=== PATIENT | male | born 1940 | race American Indian/Alaskan Native ===

== ENCOUNTER 2020-06-06 09:40 | Inpatient (IN) | payer MEDICARE ==
--- NOTE | 2020-06-06 09:56 | Emergency Department Report ---
HPI - General Time Seen by Provider: 06/06/20 09:41 - HPI HPI: Room 21 The patient is a 80-year-old male present with a chief complaint of altered mental status. Per EMS the patient was at breakfast in his wheelchair when he slumped over and went unresponsive. Patient does not answer questions but moans to sternal rub ED Past Medical Hx - Past Medical History Hx Diabetes: Yes - Family History Family history: no significant - Social History Smoking Status: Unknown if ever smoked Substance Use Type: None ED Review of Systems ROS: Stated complaint: ALLEGED STROKE Other details as noted in HPI Comment: Unobtainable due to pts medical conditions Physical Exam - Physical Exam Physical Exam: GENERAL: The patient is well-developed well-nourished male lying on stretcher u nresponsive. [] HEENT: Normocephalic. Atraumatic. Patient has moist mucous membranes. NECK: Supple. Trachea midline CHEST/LUNGS: Clear to auscultation. There is no respiratory distress noted. HEART/CARDIOVASCULAR: Regular. There is no tachycardia. There is no gallop rub or murmur. ABDOMEN: Abdomen is soft, nontender. Patient has normal bowel sounds. There is no abdominal distention. SKIN: There is no rash. There is no edema. There is no diaphoresis. NEURO: The patient is obtunded and does not awaken to sternal rub. Patient moans occasionally MUSCULOSKELETAL: There is no evidence of acute injury. ED Course - Reevaluation(s) Reevaluation #1: 06/06/20 14:14 Attempted to call patient's daughter Ms. 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 She is the patient's power of research attorney - Consultations Consultation #1: 06/06/20 14:[address] Ricketts-will consult. Recommends Kayexalate 45 g per NG tube - Central Line Placement Right Femoral Consent Obtained: emergent situation Time Out Performed: Yes Patient Placed on Monitor/Pulse Ox: Yes Prep: mask, gown, gloves Central Line Prep: Chlorhexidine scrub Local Anesthesia Used: Lidocaine 1% Amount of Anesthesia Used (mls): 5 Ultrasound Used for Placement: No Central Line Lumen Inserted: triple Reason for Insertion: Volume Resuscitation Bloods Obtained for Lab: No Central Line Position: good blood return Dressing Applied: Tegaderm Patient Tolerated Procedure: no complications Complications: none ED Medical Decision Making - Lab Data Result diagrams: 06/06/20 10:19 06/06/20 10:19 Laboratory Tests 06/06/20 06/06/20 06/06/20 09:47 10:19 10:19 WBC 4.4 L RBC 2.59 L Hgb 8.4 L Hct 26.1 L MCV 101 H MCH 33 H MCHC 32 RDW 14.8 Plt Count 157 Lymph % (Auto) 53.7 H [place] % (Auto) 6.8 Eos % (Auto) 1.6 Baso % (Auto) 0.3 Lymph # (Auto) 2.4 [place] # (Auto) 0.3 Eos # (Auto) 0.1 Baso # (Auto) 0.0 Seg Neutrophils % 37.6 L Seg Neutrophils # 1.7 L PT 16.3 H INR 1.33 H APTT 31.6 ABG pH ABG pCO2 ABG pO2 ABG HCO3 ABG O2 Saturation ABG O2 Content ABG Base Excess ABG Hemoglobin ABG Carboxyhemoglobin ABG Methemoglobin VBG pH Oxyhemoglobin FiO2 Sodium Potassium Chloride Carbon Dioxide Anion Gap BUN Creatinine Estimated GFR BUN/Creatinine Ratio Glucose POC Glucose 122 H Lactic Acid Calcium Total Bilirubin AST ALT Alkaline Phosphatase Ammonia Total Creatine Kinase CK-MB (CK-2) CK-MB (CK-2) Rel Index Troponin T Total Protein Albumin Albumin/Globulin Ratio Triglycerides Cholesterol LDL Cholesterol Direct HDL Cholesterol Cholesterol/HDL Ratio TSH Free T4 Plasma/Serum Alcohol 06/06/20 06/06/20 06/06/20 10:19 10:19 10:19 WBC RBC Hgb Hct MCV MCH MCHC RDW Plt Count Lymph % (Auto) [place] % (Auto) Eos % (Auto) Baso % (Auto) Lymph # (Auto) [place] # (Auto) Eos # (Auto) Baso # (Auto) Seg Neutrophils % Seg Neutrophils # PT INR APTT ABG pH ABG pCO2 ABG pO2 ABG HCO3 ABG O2 Saturation ABG O2 Content ABG Base Excess ABG Hemoglobin ABG Carboxyhemoglobin ABG Methemoglobin VBG pH Oxyhemoglobin FiO2 Sodium 135 L Potassium 6.2 H* Chloride 99.7 Carbon Dioxide 19 L Anion Gap 23 BUN 95 H Creatinine 3.6 H Estimated GFR 20 BUN/Creatinine Ratio 26 Glucose 124 H POC Glucose Lactic Acid 4.80 H* Calcium 8.9 Total Bilirubin 0.50 AST 44 H ALT 19 Alkaline Phosphatase 58 Ammonia 64.0 H Total Creatine Kinase 629 H CK-MB (CK-2) 5.4 H CK-MB (CK-2) Rel Index 0.8 Troponin T 0.320 H* Total Protein 6.3 Albumin 2.7 L Albumin/Globulin Ratio 0.8 Triglycerides 103 Cholesterol 84 LDL Cholesterol Direct 28 L HDL Cholesterol 44 Cholesterol/HDL Ratio 1.90 TSH Free T4 Plasma/Serum Alcohol 06/06/20 06/06/20 06/06/20 10:19 10:19 10:19 WBC RBC Hgb Hct MCV MCH MCHC RDW Plt Count Lymph % (Auto) [place] % (Auto) Eos % (Auto) Baso % (Auto) Lymph # (Auto) [place] # (Auto) Eos # (Auto) Baso # (Auto) Seg Neutrophils % Seg Neutrophils # PT INR APTT ABG pH ABG pCO2 ABG pO2 ABG HCO3 ABG O2 Saturation ABG O2 Content ABG Base Excess ABG Hemoglobin ABG Carboxyhemoglobin ABG Methemoglobin VBG pH 7.438 H Oxyhemoglobin FiO2 Sodium Potassium Chloride Carbon Dioxide Anion Gap BUN Creatinine Estimated GFR BUN/Creatinine Ratio Glucose POC Glucose Lactic Acid Calcium Total Bilirubin AST ALT Alkaline Phosphatase Ammonia Total Creatine Kinase CK-MB (CK-2) CK-MB (CK-2) Rel Index Troponin T Total Protein Albumin Albumin/Globulin Ratio Triglycerides Cholesterol LDL Cholesterol Direct HDL Cholesterol Cholesterol/HDL Ratio TSH 4.440 H Free T4 1.55 H Plasma/Serum Alcohol < 0.01 06/06/20 11:18 WBC RBC Hgb Hct MCV MCH MCHC RDW Plt Count Lymph % (Auto) [place] % (Auto) Eos % (Auto) Baso % (Auto) Lymph # (Auto) [place] # (Auto) Eos # (Auto) Baso # (Auto) Seg Neutrophils % Seg Neutrophils # PT INR APTT ABG pH 7.329 L ABG pCO2 27.8 ABG pO2 258.1 H ABG HCO3 14.3 L ABG O2 Saturation 99.4 H ABG O2 Content 13.2 ABG Base Excess -10.5 L ABG Hemoglobin 9.1 L ABG Carboxyhemoglobin 1.3 ABG Methemoglobin Not Reportable VBG pH Oxyhemoglobin 98.2 FiO2 21 Sodium Potassium Chloride Carbon Dioxide Anion Gap BUN Creatinine Estimated GFR BUN/Creatinine Ratio Glucose POC Glucose Lactic Acid Calcium Total Bilirubin AST ALT Alkaline Phosphatase Ammonia Total Creatine Kinase CK-MB (CK-2) CK-MB (CK-2) Rel Index Troponin T Total Protein Albumin Albumin/Globulin Ratio Triglycerides Cholesterol LDL Cholesterol Direct HDL Cholesterol Cholesterol/HDL Ratio TSH Free T4 Plasma/Serum Alcohol - EKG Data -: EKG Interpreted by Me EKG shows normal: sinus rhythm Rate: normal - EKG Data When compared to previous EKG there are: previous EKG unavailable Interpretation: nonspecific ST-T wave niki (T wave inversions in leads II, 3, aVF), other (Left bundle branch block) - Radiology Data Radiology results: report reviewed (CT head, CTA brain, CTA neck), image rev iewed (CT head, CTA brain, CTA neck) interpreted by me: Chest x-ray-no definite focal infiltrates, no pneumothorax. No foreign body seen [facility] [address] [place] [address] Cat Scan Report Signed Patient: TROY THAKKAR MR#: [id number] : 1940 Acct:[id number] Age/Sex: 80 / M ADM Date: 06/06/20 Loc: ED Attending Dr: Ordering Physician: JAIME SINGLETON MD Date of Service: 06/06/20 Procedure(s): CT head/brain wo con Accession Number(s): [id number] cc: JAIME SINGLETON MD CT head/brain wo con INDICATION / CLINICAL INFORMATION: 80 years Male; Altered mental status, unresponsive. TECHNIQUE: Routine CT head without contrast. All CT scans at this location are performed using CT dose reduction for ALARA by means of automated exposure control. COMPARISON: None. FINDINGS: BRAIN / INTRACRANIAL CONTENTS: There is moderate cerebral white matter disease most consistent with microvascular angiopathy. The findings are also compatible with lacunar infarcts involving right basal ganglia which appear chronic though correlation would be needed regarding underlying acute ischemia given the above findings and "code st roke" specification. There are foci of calcification within the basal ganglia. There is no clear CT evidence of acute intracranial hemorrhage or significant mass effect. There is mild cerebral atrophy. The ventricular system is correspondingly appropriate in size and configuration. ORBITS: No significant abnormality of visualized orbits. SINUSES / MASTOIDS: No significant abnormality in the visualized paranasal sinuses or mastoid air cells. CRANIOCERVICAL JUNCTION: No significant abnormality. ADDITIONAL FINDINGS: None. IMPRESSION: 1. There is moderate microvascular angiopathy as detailed above without CT ends of acute intracranial hemorrhage. The study was specified as code stroke and called to Dr. Singleton in the ER at 9:01 AM Central standard time. Signer Name: Arturo Jensen MD Signed: 06/06/2020 10:05 AM Workstation Name: [id number] Transcribed By: MR Dictated By: Arturo Jensen MD Electronically Authenticated By: Arturo Jensen MD Signed Date/Time: 06/06/20 100 DD/ TD/TT: Print Cancel [facility] [address] [place] [address] Cat Scan Report Signed Patient: TROY THAKKAR MR#: [id number] : 1940 Acct:[id number] Age/Sex: 80 / M ADM Date: 06/06/20 Loc: ED Attending Dr: Ordering Physician: JAIME SINGLETON MD Date of Service: 06/06/20 Procedure(s): CT angio head Accession Number(s): [id number] cc: JAIME SINGLETON MD CTA HEAD WITH CONTRAST HISTORY: Unresponsive COMPARISON: None. TECHNIQUE: Routine non-contrast CT Head, CTA of the head and post-contrast CT Head are performed. 3-D/MIP reformats postprocessed. All CT scans at this location are performed using CT dose reduction for ALARA by means of automated exposure control CONTRAST: 100 ml of Omnipaque 350 FINDINGS: CTA Head: Intracranial vertebral arteries: No significant abnormality. Basilar artery: No significant abnormality. Posterior cerebral arteries: No significant abnormality. Both posterior communicating arteries are contributing to posterior cerebral arteries Intracranial internal carotid arteries: Vascular calcification in both internal carotid arteries; internal carotid arteries patent from skull base to terminus Anterior cerebral arteries: No significant abnormality. Middle cerebral arteries: No significant abnormality. Dural venous sinuses:Not optimally opacified. No significant abnormality. Additional findings: None. IMPRESSION: 1. No significant abnormality. Signer Name: Dany Reich MD Signed: 06/06/2020 10:35 AM Workstation Name: [email or web address] Transcribed By: BS Dictated By: Dany Neil MD Electronically Authenticated By: Dany Neil MD Signed Date/Time: 06/06/20 1035 DD/ 1030 TD/TT: Print Cancel [facility] [address] [place] [address] Cat Scan Report Signed Patient: TROY THAKKAR MR#: [id number] : 1940 Acct:[id number] Age/Sex: 80 / M ADM Date: 06/06/20 Loc: ED Attending Dr: Ordering Physician: JAIME SINGLETON MD Date of Service: 06/06/20 Procedure(s): CT angio neck Accession Number(s): [id number] cc: JAIME SINGLETON MD CTA NECK WITH CONTRAST HISTORY: Altered mental status COMPARISON: None. TECHNIQUE: Routine CTA of the neck was performed. 3-D/MIP reformats were postprocessed. 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 In addition, along the posterior wall of proximal right internal carotid artery, extraluminal opacification suspicious for ulceration. Left carotid bifurcation: Densely calcified (5 mm thick) eccentric atheromatous plaque in the proximal left internal carotid artery narrowing the lumen by more than 60%. Cervical internal carotid arteries: No significant abnormality. Additional findings: None. IMPRESSION: Right carotid bifurcation: Calcified atherosclerotic plaque with less than 30% stenoses in the proximal right internal carotid artery; however, more proximally, suggestion of foraminal segment Left carotid bifurcation: Densely calcified atheromatous plaque in the proximal left internal carotid artery with more than 60% stenoses Signer Name: Dany Reich MD Signed: 06/06/2020 10:49 AM Workstation Name: [id number] Transcribed By: MARIN Dictated By: Dany Neil MD Electronically Authenticated By: Dany Neil MD Signed Date/Time: 06/06/20 1049 DD/ 1035 TD/TT: Print Cancel [facility] [address] [place] [address] XRay Report Signed Patient: TROY THAKKAR MR#: [id number] : 1940 Acct:[id number] Age/Sex: 80 / M ADM Date: 06/06/20 Loc: ED Attending Dr: Ordering Physician: JAIME SINGLETON MD Date of Service: 06/06/20 Procedure(s): XR chest 1V ap Accession Number(s): [id number] cc: JAIME SINGLETON MD Fluoro Time In Minutes: CHEST 1 VIEW INDICATION: Altered mental status COMPARISON: None FINDINGS: SUPPORT DEVICES: None. HEART / MEDIASTINUM: No significant abnormality. LUNGS / PLEURA: Bronchovascular markings are prominent both bases. No pneumothorax. ADDITIONAL FINDINGS: Chronic degenerative changes with possible chronic anterior dislocations both shoulders IMPRESSION: 1. No acute cardiopulmonary disease Signer Name: Yony Obregon MD Signed: 06/06/2020 12:10 PM Workstation Name: [id number] Transcribed By: LESLIE Dictated By: Yony Obregon MD Electronically Authenticated By: Yony Obregon MD Signed Date/Time: 06/06/20 1210 DD/ 1209 TD/TT: Print Cancel - Differential Diagnosis CVA, ICH, sepsis, hypoxia, pneumonia Critical care attestation.: If time is entered above; I have spent that time in minutes in the direct care of this critically ill patient, excluding procedure time. ED Disposition Clinical Impression: Altered mental status, Renal failure, Hyperkalemia, Metabolic acidosis Disposition: OP ADMIT IP TO THIS HOSP Is pt being admited?: Yes Does the pt Need Aspirin: No Condition: Stable Referrals: PRIMARY CARE, [Primary Care Provider] - 3-5 Days Time of Disposition: 14:28 (Hospitalist notified (Dr. Meyer))
--- NOTE | 2020-06-06 10:09 | Cat Scan Report ---
CT head/brain wo con INDICATION / CLINICAL INFORMATION: 80 years Male; Altered mental status, unresponsive. TECHNIQUE: Routine CT head without contrast. All CT scans at this location are performed using CT dos e reduction for ALARA by means of automated exposure control. COMPARISON: None. FINDINGS: BRAIN / INTRACRANIAL CONTENTS: There is moderate cerebral white matter disease most consistent with m icrovascular angiopathy. The findings are also compatible with lacunar infarcts involving right basal ganglia which appear chronic though correlation would be needed regarding underlying acute ischemia given the above findings and "code stroke" specification. There are foci of calcification within the basal ganglia. There is no clear CT evidence of acute intr acranial hemorrhage or significant mass effect. There is mild cerebral atrophy. The ventricular syste m is correspondingly appropriate in size and configuration. ORBITS: No significant abnormality of visualized orbits. SINUSES / MASTOIDS: No significant abnormality in the visualized paranasal sinuses or mastoid air marcy ls. CRANIOCERVICAL JUNCTION: No significant abnormality. ADDITIONAL FINDINGS: None. IMPRESSION: 1. There is moderate microvascular angiopathy as detailed above without CT ends of acute intracranial hemorrhage. The study was specified as code stroke and called to Dr. Blackman in the ER at 9:01 AM Central standard t wilian. Signer Name: Arturo Jensen MD Signed: 06/06/2020 10:05 AM Workstation Name: [id number]
--- NOTE | 2020-06-06 10:39 | Cat Scan Report ---
CTA HEAD WITH CONTRAST HISTORY: Unresponsive COMPARISON: None. TECHNIQUE: Routine non-contrast CT Head, CTA of the head and post-contrast CT Head are performed. 3-D /MIP reformats postprocessed. All CT scans at this location are performed using CT dose reduction for ALARA by means of automated exposure control CONTRAST: 100 ml of Omnipaque 350 FINDINGS: CTA Head: Intracranial vertebral arteries: No significant abnormality. Basilar artery: No significant abnormality. Posterior cerebral arteries: No significant abnormality. Both posterior communicating arteries are co ntributing to posterior cerebral arteries Intracranial internal carotid arteries: Vascular calcification in both internal carotid arteries; int ernal carotid arteries patent from skull base to terminus Anterior cerebral arteries: No significant abnormality. Middle cerebral arteries: No significant abnormality. Dural venous sinuses:Not optimally opacified. No significant abnormality. Additional findings: None. IMPRESSION: 1. No significant abnormality. Signer Name: Dany Reich MD Signed: 06/06/2020 10:35 AM Workstation Name: [id number]
--- NOTE | 2020-06-06 10:54 | Cat Scan Report ---
CTA NECK WITH CONTRAST HISTORY: Altered mental status COMPARISON: None. TECHNIQUE: Routine CTA of the neck was performed. 3-D/MIP reformats were postprocessed. 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 In a ddition, along the posterior wall of proximal right internal carotid artery, extraluminal opacificati on suspicious for ulceration. Left carotid bifurcation: Densely calcified (5 mm thick) eccentric atheromatous plaque in the proxima l left internal carotid artery narrowing the lumen by more than 60%. Cervical internal carotid arteries: No significant abnormality. Additional findings: None. IMPRESSION: Right carotid bifurcation: Calcified atherosclerotic plaque with less than 30% stenoses in the proxim al right internal carotid artery; however, more proximally, suggestion of foraminal segment Left carotid bifurcation: Densely calcified atheromatous plaque in the proximal left internal carotid artery with more than 60% stenoses Signer Name: Dany Reich MD Signed: 06/06/2020 10:49 AM Workstation Name: [id number]
[2020-06-06 10:59] LABS: Basophils % (Auto) 0.3 % (0.0-1.8); Eosinophils # (Auto) 0.1 K/mm3 (0.0-0.4); Eosinophils % (Auto) 1.6 % (0.0-4.3); Hematocrit 26.1 % (35.5-45.6); Hemoglobin 8.4 gm/dl (11.8-15.2); Lymphocytes # (Auto) 2.4 K/mm3 (1.2-5.4); Lymphocytes % (Auto) 53.7 % (13.4-35.0); Mean Corpuscular HGB Conc 32 % (32-34); Mean Corpuscular Volume 101 fl (84-94); Monocytes # (Auto) 0.3 K/mm3 (0.0-0.8); Monocytes % (Auto) 6.8 % (0.0-7.3); Red Blood Count 2.59 M/mm3 (3.65-5.03); Red Cell Distribution Width 14.8 % (13.2-15.2)
[2020-06-06 11:00] LABS: Platelet Count 157 K/mm3 (140-440)
[2020-06-06 11:08] LABS: INR 1.33 (0.87-1.13)
[2020-06-06 11:09] LABS: Partial Thromboplastin Time 31.6 Sec. (24.2-36.6)
[2020-06-06 11:36] LABS: Albumin 2.7 g/dL (3.9-5); Calcium 8.9 mg/dL (8.4-10.2); Creatine Kinase MB 5.4 ng/mL (0.0-4.0)
[2020-06-06 11:45] LABS: Free T4 (Free Thyroxine) 1.55 ng/dL (0.76-1.46)
[2020-06-06] MEDS ORDERED: SODIUM CHLORIDE 0.9% 1000 ML 1,000 ML ONE (11:45)
[2020-06-06] MEDS ORDERED: DOPamine/D5W 800 MG/250 ML 800 MG/250 ML BAG IV ONE (11:56)
[2020-06-06] MEDS ORDERED: SODIUM CHLORIDE 0.9% 1000 ML 1,000 ML IV ONE (11:59)
[2020-06-06] MEDS: DOPamine/D5W 800 MG/250 ML 800 MG/250 ML BAG IV ONE ×3 (12:06→20:37)
--- NOTE | 2020-06-06 12:14 | XRay Report ---
CHEST 1 VIEW INDICATION: Altered mental status COMPARISON: None FINDINGS: SUPPORT DEVICES: None. HEART / MEDIASTINUM: No significant abnormality. LUNGS / PLEURA: Bronchovascular markings are prominent both bases. No pneumothorax. ADDITIONAL FINDINGS: Chronic degenerative changes with possible chronic anterior dislocations both oulders IMPRESSION: 1. No acute cardiopulmonary disease Signer Name: Yony Obregon MD Signed: 06/06/2020 12:10 PM Workstation Name: [id number]
[2020-06-06 12:22] LABS: ABG Base Excess -10.5 mmol/L (-2.0-3.0); ABG HCO3 14.3 mmol/L (20.0-26.0); ABG Oxygen Saturation 99.4 % (95.0-99.0); ABG PCO2 27.8 mm Hg; ABG PH 7.329 pH Units (7.350-7.450); ABG PO2 258.1 mm Hg (80.0-90.0)
--- NOTE | 2020-06-06 12:42 | Emergency Department Report ---
Blank Doc - Documentation Documentation: [facility] Consult Note # Demographics Consult Type: Acute Stroke Level 1 (0-4.5 hrs) Patient Location: Emergency Room First Name: Jt Last Name: Korey Date of : 1940 Age: 80 Gender: Male Time of Initial Page ( Time): 06/06/2020, 09:46 Time of Return Call ( Time): 06/06/2020, 09:46 # HPI History: 80yo M presents after slumping at the breakfast table, not speaking. no weakness or facial droop. agonal breathing. a fib on the monitor pt getting CT at the time of the page. seen after. # Scores Time of exam and NIHSS (): 06/06/2020, 10:06 Level of Consciousness 1a: [1] = Not alert; but arousable by minor stim LOC Questions 1b: [2] = Answers neither correctly LOC Commands 1c: [2] = Performs neither correctly Best Gaze 2: [0] = Normal Visual 3: [0] = No visual loss Facial Palsy 4: [0] = Normal symmetrical movements Motor Arm Left 5a: [3] = No effort against gravity Motor Arm Right 5b: [3] = No effort against gravity Motor Leg Left 6a: [3] = No effort against gravity Motor Leg Right 6b: [3] = No effort against gravity Limb Ataxia 7: [0] = Absent Sensory 8: [0] = Normal Best Language 9: [3] = Mute Dysarthria 10: [2] = Severe dysarthria Extinction and Inattention 11: [0] = No abnormality NIHSS Total: 22 # Exam Respiratory: on non-reabreather mask # PMH-FH-SH Past Medical History: Diabetes Social History: [facility] facility # Data Time Head CT personally read by me (): 06/06/2020, 09:[address]: no bleed, preliminarily reviewed by me, please refer to radiology read for official reading # Assessment Impression: Altered Mental Status # Plan Thrombolytic/Intervention: NOT IV Thrombolytic or IA Intervention Thrombolytic/Intraarterial Exclusion: IV thrombolytic and IA intervention considered but not recommended as this patient's symptoms are not clinically consistent with an assumed diagnosis of stroke Imaging: (urgency: STAT in ED): CT Angiogram Head and CT Angiogram Neck AND call back with results if abnormal Other: I have discussed my recommendations with the referring provider Additional Recommendations: Metabolic and infectious evaluation. If no cause found then MRI brain for further eval is reasonable # Logistics Telemedicine: Interactive 2 way audio and visual telecommunication technology was utilized during this visit
[2020-06-06 13:52] LABS: Chol/HDL Ratio 1.9 %
[2020-06-06] MEDS ORDERED: PIPERACIL-TAZO 2.25 GM/50 ML 2.25 GM/50 ML BAG IV ONE (13:59)
[2020-06-06] MEDS ORDERED: INSULIN REGULAR, HUMAN 100 UNITS/1 ML IV ONE (14:10)
[2020-06-06] MEDS ORDERED: DEXTROSE 50% IN WATER (25GM) 50 ML SYRINGE IV ONE (14:10)
[2020-06-06] MEDS ORDERED: SODIUM BICARB 8.4% 50 MEQ/50 ML SYRINGE IV ONE (14:10)
[2020-06-06] MEDS ORDERED: CALCIUM GLUCONATE 1,000 MG in SODIUM CHLORIDE 0.9% 100 ML IV ONE (14:10)
[2020-06-06] MEDS: NORepinephrine/NS 4 MG-250 ML 4 MG/250 ML BAG IV SCH ×2 (14:27→17:42)
--- NOTE | 2020-06-06 14:29 | History and Physical Report ---
History of Present Illness Chief complaint: Unresponsive History of present illness: 80 YO Male Assisted Living Facility Resident with Vascular Dementia, Cerebral Atherosclerosis, Debility, DM presents to ED for evaluation. Patient is lethargic with diminished cognition at the time of my evaluation is unable to provide history. Patient history provided by patient daughter who is available by telephone. Patient daughter reports that patient was in his usual state of health and was found by assisted living facility staff this morning to have developed an episode of unresponsiveness while at breakfast. EMS was notified and upon arrival the patient was found to be in distress and subsequently transported to [facility] for further care and evaluation of the aforementioned symptoms. The patient was seen and evaluated in the emergency department. All lab and imaging studies reviewed. The patient was found to have a urinary tract infection complicated by sepsis and septic shock, acute kidney injury, toxic metabolic encephalopathy, as well as metabolic acidosis. The patient was found to be hypotensive with a systolic blood pressure in the 50s. The patient was initiated on IV pressor support. The patient was admitted to ICU due to increased risk of developing multiple organ system dysfunction. Patient found to have poor prognosis. No further history is obtainable. Patient has diminished cognition but has a positive gag reflex and is able to protect his airway at the time of my evaluation. Advanced care planning conducted in ED. Patient daughter made aware of the prognosis. No prior admission for review. No medication listed at time of admission for reconciliation. Nephrology team consulted in ED. Critical care team consulted. Past History Past Medical History: diabetes, other (See HPI) Past Surgical History: No surgical history, Other (Reviewed) Social history: Family history: diabetes, hypertension Medications and Allergies Allergies Allergy/AdvReac Type Severity Reaction Status Date / Time No Known Allergies Allergy Verified 06/06/20 15:21 Home Medications Medication Instructions Recorded Confirmed Last Taken Type Amlodipine Besylate [Norvasc] 5 mg PO QDAY 06/06/20 06/06/20 Unknown History Bisacodyl [Women's Gentle Laxative] 5 mg PO BID 06/06/20 06/06/20 Unknown History Calcium Carb/Magnesium Hydrox 500 mg PO QDAY 06/06/20 06/06/20 Unknown History [Antacid 1000-200 mg Tab Chew] Cholecalciferol (Vitamin D3) 2,000 unit PO QDAY 06/06/20 06/06/20 Unknown History [Vitamin D3 2,000 UNIT CAP] Dextrose/Dextrin/Maltose 24 gm PO ONCE 06/06/20 06/06/20 Unknown History [Insta-Glucose Gel] Diclofenac 1% [Diclofenac 1% 100 gm TP QDAY 06/06/20 06/06/20 Unknown History topical gel] Dicyclomine [Bentyl] 10 mg PO TID 06/06/20 06/06/20 Unknown History Docusate Sodium [Colace] 100 mg PO BID PRN 06/06/20 06/06/20 Unknown History Furosemide [Lasix] 40 mg PO QDAY 06/06/20 06/06/20 Unknown History Insulin Lispro [Insulin Lispro 10 unit SQ TID 06/06/20 06/06/20 Unknown History Kwikpen U-100] Magnesium Citrate [Citroma] 296 ml PO QDAY 06/06/20 06/06/20 Unknown History Melatonin [Melatonin 3MG TAB] 6 mg PO QHS 06/06/20 06/06/20 Unknown History Oxycodone HCl/Acetaminophen 1 each PO QDAY 06/06/20 06/06/20 Unknown History [Oxycodone-Acetaminophen 10-325] Pantoprazole [Protonix] 40 mg PO QDAY 06/06/20 06/06/20 Unknown History Pioglitazone HCl [Actos] 30 mg PO QDAY 06/06/20 06/06/20 Unknown History Polyethylene Glycol 3350 [Gavilax] 10 gm PO QDAY 06/06/20 06/06/20 Unknown History Pravastatin Sodium [Pravastatin] 10 mg PO QHS 06/06/20 06/06/20 Unknown History Tamsulosin [Flomax] 0.4 mg PO QDAY 06/06/20 06/06/20 Unknown History allopurinoL [Zyloprim] 100 mg PO QDAY 06/06/20 06/06/20 Unknown History lisinopriL [Lisinopril] 20 mg PO QDAY 06/06/20 06/06/20 Unknown History Active Meds: Active Medications Dopamine HCl/Dextrose (Intropin Drip 800 Mg/D5w 250 Ml) 800 mg in 250 mls @ 2.885 mls/hr IV TITR ONE; Protocol Stop: 06/10/20 02:39 Last Admin: 06/06/20 13:28 Dose: 20 mcg/kg/min, 28.848 mls/hr Documented by: Norepinephrine (Levophed Drip 4 Mg/Ns 250 Ml) 4 mg in 250 mls @ 7.5 mls/hr IV TITR YELENA; Protocol Review of Systems ROS unobtainable: due to mental status Exam - Constitutional Vitals: Temp Pulse Resp BP Pulse Ox 96.6 F L 113 H 26 H 50/24 100 06/06/20 12:09 06/06/20 14:00 06/06/20 14:00 06/06/20 14:00 06/06/20 14:00 General appearance: Present: severe distress - EENT Eyes: Present: PERRL ENT: hearing decreased, other (Dry oral mucosa) - Neck Neck: Present: supple, normal ROM - Respiratory Respiratory effort: normal Respiratory: bilateral: diminished - Cardiovascular Rhythm: other (Hypotensive, tachycardic) - Extremities Extremities: pulses symmetrical, No edema Peripheral Pulses: abnormal (Capillary refill greater than 3.5 seconds) - Abdominal General gastrointestinal: Present: soft, non-tender, non-distended, normal bowel sounds Male genitourinary: Present: normal - Integumentary Integumentary: Present: dry, clammy, decreased turgor - Musculoskeletal Musculoskeletal: generalized weakness - Psychiatric Psychiatric: no appropriate mood/affect, no intact judgment & insight, no memory intact - Neurologic Neurologic: CNII-XII intact, no focal deficits, moves all extremities, no gait normal HEART Score - HEART Score Troponin: Troponin T 0.320 ng/mL (0.00-0.029) H* 06/06/20 10:19 Results - Labs CBC & Chem 7: 06/06/20 10:19 06/06/20 10:19 Labs: Abnormal lab results 06/06/20 06/06/20 06/06/20 Range/Units 09:47 10:19 10:19 WBC 4.4 L (4.5-11.0) K/mm3 RBC 2.59 L (3.65-5.03) M/mm3 Hgb 8.4 L (11.8-15.2) gm/dl Hct 26.1 L (35.5-45.6) % MCV 101 H (84-94) fl MCH 33 H (28-32) pg Lymph % (Auto) 53.7 H (13.4-35.0) % Seg Neutrophils % 37.6 L (40.0-70.0) % Seg Neutrophils # 1.7 L (1.8-7.7) K/mm3 PT 16.3 H (12.2-14.9) Sec. INR 1.33 H (0.87-1.13) ABG pH (7.350-7.450) pH Units ABG pO2 (80.0-90.0) mm Hg ABG HCO3 (20.0-26.0) mmol/L ABG O2 Saturation (95.0-99.0) % ABG Base Excess (-2.0-3.0) mmol/L ABG Hemoglobin (14.0-18.0) gm/dl VBG pH (7.320-7.420) Sodium (137-145) mmol/L Potassium (3.6-5.0) mmol/L Carbon Dioxide (22-30) mmol/L BUN (9-20) mg/dL Creatinine (0.8-1.3) mg/dL Glucose (75-100) mg/dL POC Glucose 122 H (70-105) mg/dL Lactic Acid (0.7-2.0) mmol/L AST (5-40) units/L Ammonia (25-60) umol/L Total Creatine Kinase (55-170) units/L CK-MB (CK-2) (0.0-4.0) ng/mL Troponin T (0.00-0.029) ng/mL Albumin (3.9-5) g/dL LDL Cholesterol Direct (50-130) mg/dL TSH (0.270-4.200) mlU/mL Free T4 (0.76-1.46) ng/dL 06/06/20 06/06/20 06/06/20 Range/Units 10:19 10:19 10:19 WBC (4.5-11.0) K/mm3 RBC (3.65-5.03) M/mm3 Hgb (11.8-15.2) gm/dl Hct (35.5-45.6) % MCV (84-94) fl MCH (28-32) pg Lymph % (Auto) (13.4-35.0) % Seg Neutrophils % (40.0-70.0) % Seg Neutrophils # (1.8-7.7) K/mm3 PT (12.2-14.9) Sec. INR (0.87-1.13) ABG pH (7.350-7.450) pH Units ABG pO2 (80.0-90.0) mm Hg ABG HCO3 (20.0-26.0) mmol/L ABG O2 Saturation (95.0-99.0) % ABG Base Excess (-2.0-3.0) mmol/L ABG Hemoglobin (14.0-18.0) gm/dl VBG pH (7.320-7.420) Sodium 135 L (137-145) mmol/L Potassium 6.2 H* (3.6-5.0) mmol/L Carbon Dioxide 19 L (22-30) mmol/L BUN 95 H (9-20) mg/dL Creatinine 3.6 H (0.8-1.3) mg/dL Glucose 124 H (75-100) mg/dL POC Glucose (70-105) mg/dL Lactic Acid 4.80 H* (0.7-2.0) mmol/L AST 44 H (5-40) units/L Ammonia 64.0 H (25-60) umol/L Total Creatine Kinase 629 H (55-170) units/L CK-MB (CK-2) 5.4 H (0.0-4.0) ng/mL Troponin T 0.320 H* (0.00-0.029) ng/mL Albumin 2.7 L (3.9-5) g/dL LDL Cholesterol Direct 28 L (50-130) mg/dL TSH (0.270-4.200) mlU/mL Free T4 (0.76-1.46) ng/dL 06/06/20 06/06/20 06/06/20 Range/Units 10:19 10:19 11:18 WBC (4.5-11.0) K/mm3 RBC (3.65-5.03) M/mm3 Hgb (11.8-15.2) gm/dl Hct (35.5-45.6) % MCV (84-94) fl MCH (28-32) pg Lymph % (Auto) (13.4-35.0) % Seg Neutrophils % (40.0-70.0) % Seg Neutrophils # (1.8-7.7) K/mm3 PT (12.2-14.9) Sec. INR (0.87-1.13) ABG pH 7.329 L (7.350-7.450) pH Units ABG pO2 258.1 H (80.0-90.0) mm Hg ABG HCO3 14.3 L (20.0-26.0) mmol/L ABG O2 Saturation 99.4 H (95.0-99.0) % ABG Base Excess -10.5 L (-2.0-3.0) mmol/L ABG Hemoglobin 9.1 L (14.0-18.0) gm/dl VBG pH 7.438 H (7.320-7.420) Sodium (137-145) mmol/L Potassium (3.6-5.0) mmol/L Carbon Dioxide (22-30) mmol/L BUN (9-20) mg/dL Creatinine (0.8-1.3) mg/dL Glucose (75-100) mg/dL POC Glucose (70-105) mg/dL Lactic Acid (0.7-2.0) mmol/L AST (5-40) units/L Ammonia (25-60) umol/L Total Creatine Kinase (55-170) units/L CK-MB (CK-2) (0.0-4.0) ng/mL Troponin T (0.00-0.029) ng/mL Albumin (3.9-5) g/dL LDL Cholesterol Direct (50-130) mg/dL TSH 4.440 H (0.270-4.200) mlU/mL Free T4 1.55 H (0.76-1.46) ng/dL Assessment and Plan - Patient Problems (1) Septic shock Current Visit: Yes Status: Acute Plan to address problem: Sepsis protocol: Chest x-ray, CBC, BMP, urinalysis, IV fluid resuscitation therapy, IV antibiotic therapy, monitor urine output every shift, monitor fluid balance, maintain mean arterial pressure greater than or equal to 65, IV pressor support, serial lactic acid level, blood cultures. The high probability of a clinically significant, sudden or life threatening deterioration of the [cardiac, pulmonary, renal, infectious disease] system(s) required my full and direct attention, intervention and personal management. The aggregate critical care time was [95] minutes. This time is in addition to time spent performing reported procedures but includes the following: [x] Data Review and interpretation [x] Patient assessment and monitoring of vital signs [x] Documentation [x] Medication orders and management (2) Acute kidney injury (ISAAC) with acute tubular necrosis (ATN) Current Visit: Yes Status: Acute Plan to address problem: IV fluid resuscitation therapy, monitor urine output every shift, urine electrolytes, nephrology team consulted, BMP, repeat BMP in a.m. to monitor serum creatinine as well as glomerular filtration rate. (3) Urinary tract infection Current Visit: Yes Status: Acute Qualifiers: Encounter type: initial encounter Plan to address problem: CBC, CMP, urinalysis, IV antibiotic therapy, blood cultures. (4) Metabolic acidosis Current Visit: Yes Status: Acute Plan to address problem: IV fluid resuscitation therapy, IV bicarbonate therapy, BMP, repeat BMP in a.m., serial lactic acid level. (5) Toxic metabolic encephalopathy Current Visit: Yes Status: Acute Plan to address problem: CT head, neuro check, seizure precaution, aspiration precautions, treat sepsis, IV fluid resuscitation therapy. (6) DVT prophylaxis Current Visit: Yes Status: Acute Plan to address problem: SCD to bilateral lower extremities while in bed, prophylactic anticoagulation (7) Advance care planning Current Visit: Yes Status: Acute Plan to address problem: Disease education conducted, care plan discussed, prognosis discussed, diagnosis discussed, patient daughter acknowledges understanding and agree with care plan. Patient daughter acknowledges understanding patient poor prognosis and states that she is comfortable not returning to the hospital in view of the fact that this may be the last time that she sees her father alive. Patient is full code. Patient daughter acknowledges understanding agreement with care plan. +30 minutes.
[2020-06-06 14:30] LABS: Bilirubin,Urine NEG (Negative); Blood,Urine SM (Negative); Color,Urine Yellow (Yellow); Urobilinogen,Urine < 2.0 mg/dL (<2.0); WBC,Urine > 182.0 /HPF (0.0-6.0)
[2020-06-06] MEDS ORDERED: SODIUM POLYSTYRENE 15 GM/60 ML ORAL LIQD PO ONE (14:34)
[2020-06-06] MEDS ORDERED: CEFEPIME/NS 2 GM/100 ML 2 GM/100 ML BAG IV SCH (14:35)
[2020-06-06] MEDS ORDERED: SODIUM CHLORIDE 0.9% 1000 ML IV SOLN IV ONE (14:35)
[2020-06-06] MEDS ORDERED: ALBUTEROL 2.5 MG/3 ML NEBU IH PRN (15:00)
[2020-06-06] MEDS ORDERED: HYDROmorphone 1 MG/1 ML INJ IV PRN (15:00)
[2020-06-06 15:01] LABS: Amphetamine Screen,Urine PRESUMPTIVE NEGATIVE; Benzodiazepines Screen,Urine PRESUMPTIVE NEGATIVE; Cannabinoid Screen,Urine PRESUMPTIVE NEGATIVE; Cocaine Screen,Urine PRESUMPTIVE NEGATIVE; Methadone Screen,Urine PRESUMPTIVE NEGATIVE; Opiate Screen,Urine PRESUMPTIVE NEGATIVE
[2020-06-06] MEDS ORDERED: SODIUM CHLORIDE 0.9% IV ONE (15:30)
[2020-06-06] MEDS: CEFEPIME/NS 1 GM/100 ML 1 GM/100 ML BAG IV SCH (15:48)
[2020-06-06] MEDS ORDERED: DOCUSATE SODIUM 100 MG CAP PO PRN (15:57)
[2020-06-06 16:17] LABS: Creatinine,Urine < 4.2 mg/dL (0.1-20.0)
[2020-06-06] MEDS ORDERED: MAGNESIUM CITRATE 300 ML ORAL LIQD PO PRN (16:20)
[2020-06-06] MEDS: SODIUM CHLORIDE 0.9% 1000 ML 1,000 ML IV SCH (16:30)
[2020-06-06] MEDS: NORepinephrine/NS 8 MG-250 ML 8 MG/250 ML INFUS..BTL IV SCH (20:16)
[2020-06-06 21:45] LABS: Calcium 8.1 mg/dL (8.4-10.2)
[2020-06-06] MEDS ORDERED: NON-FORMULARY EACH (Pravastatin Sodium [Pravastatin] 10 MG Tablet) PO SCH (22:00)
[2020-06-07] MEDS: DICYCLOMINE 10 MG CAP PO SCH ×4 (01:15→22:08)
[2020-06-07] MEDS: PRAVASTATIN 20 MG TAB PO SCH ×2 (01:15→22:08)
[2020-06-07 03:01] LABS: Hematocrit 34.5 % (35.5-45.6); Hemoglobin 10.8 gm/dl (11.8-15.2); Mean Corpuscular HGB Conc 31 % (32-34); Mean Corpuscular Volume 102 fl (84-94); Platelet Count 190 K/mm3 (140-440); Red Blood Count 3.38 M/mm3 (3.65-5.03)
[2020-06-07 03:23] LABS: Albumin 3.2 g/dL (3.9-5); Calcium 7.9 mg/dL (8.4-10.2)
[2020-06-07] MEDS: VASOPRESSIN 20 UNIT in SODIUM CHLORIDE 0.9% 100 ML IV SCH ×2 (03:31→14:31)
[2020-06-07 03:48] LABS: Band Neutrophils # (Manual) 0.7 K/mm3; Total Cells Counted 100
[2020-06-07 03:49] LABS: Platelet Estimate Consistent w Auto; RBC Morphology Normal
[2020-06-07] MEDS: SODIUM CHLORIDE 0.9% 1000 ML 1,000 ML IV SCH (04:18)
[2020-06-07] MEDS: CEFEPIME/NS 1 GM/100 ML 1 GM/100 ML BAG IV SCH (04:30)
[2020-06-07] MEDS: DICLOFENAC SODIUM 1% TOPICAL GEL 100 GM TP SCH (08:29)
[2020-06-07] MEDS ORDERED: CALCIUM CARBONATE PO SCH (10:00)
[2020-06-07] MEDS ORDERED: MAGNESIUM CITRATE 300 ML ORAL LIQD PO SCH (10:00)
[2020-06-07] MEDS ORDERED: NON-FORMULARY EACH (Cholecalciferol (Vitamin D3) [Vitamin D3 2,000 Unit Cap] 2,000 UNIT Ca PO SCH (10:00)
[2020-06-07] MEDS ORDERED: [UNRECOGNIZED DRUG - OTHER] PO SCH (10:00)
[2020-06-07] MEDS ORDERED: MAGNESIUM HYDROXIDE PO SCH (10:00)
[2020-06-07] MEDS ORDERED: [UNRECOGNIZED DRUG - OTHER] PO SCH (10:00)
[2020-06-07] MEDS: NORepinephrine/NS 8 MG-250 ML 8 MG/250 ML INFUS..BTL IV SCH ×2 (10:06→22:10)
[2020-06-07] MEDS: POLYETHYLENE GLYCOL 3350 17 GM POWDER PO SCH (10:08)
[2020-06-07] MEDS: PANTOPRAZOLE 40 MG TAB PO SCH (10:08)
[2020-06-07] MEDS: CHOLECALCIFEROL (VIT D3) 1000 UNIT (25 mcg) TAB PO SCH (10:09)
[2020-06-07] MEDS: allopurinoL 100 MG TAB PO SCH (10:09)
[2020-06-07] MEDS: CALCIUM CARBONATE 500 MG TAB CHEW PO SCH (10:09)
[2020-06-07] MEDS ORDERED: SODIUM CHLORIDE 0.9% 1000 ML 1,000 ML IV ONE (10:29)
--- NOTE | 2020-06-07 10:36 | Electrocardiograph Report ---
[facility] Test Date: 2020-06-06 Test Time: 13:06:13 Pat Name: TROY THAKKAR Department: Room: [place] [address] Gender: M [place] Operator: EVER : 1940 Requested By: JAIME SINGLETON Order Number: [id number] Reading MD: Gavin Landa Measurements Intervals [place] Rate: 53 P: 67 FL: 67 QRS: 19 QRSD: 141 T: -69 QT: 539 QTc: 520 Interpretive Statements Sinus bradycardia Left bundle branch block Prolonged QT interval No previous ECG available for comparison Electronically Signed On 06-07-2020 10:35:48 EDT by Gavin Landa
--- NOTE | 2020-06-07 12:18 | Consultation ---
History of Present Illness - Reason for Consult Consult date: 06/07/20 septic shock Requesting physician: AICHA LA - History of Present Illness 80 years old male with history of dementia, CVA, debility, diabetes mellitus, secondary to few hours of unresponsiveness at breakfast at his assisted living facility. Patient is not able to provide a history. On arrival, temperature 97.7, HR 87, RR 27, O2 sat 94%, BP 134/106, initial WBC 4.4. Hemoglobin 8.4. Platelets 157. Bands 14. Creatinine 3.6. Lactate 4.8--> 11.2. Troponin 0 0.32. TSH 4.4. T4 1.5. Urinalysis with 182 WBCs and large leukocyte esterase. Blood culture 06/06/2020 no growth today. Chest x-ray unremarkable. CT of the head moderate microvascular changes. Review of Systems: unable to obtain Past History Past Medical History: diabetes, other (See HPI) Past Surgical History: No surgical history, Other (Reviewed) Social history: Family history: diabetes, hypertension Medications and Allergies Allergies Allergy/AdvReac Type Severity Reaction Status Date / Time No Known Allergies Allergy Verified 06/06/20 15:21 Home Medications Medication Instructions Recorded Confirmed Last Taken Type Amlodipine Besylate [Norvasc] 5 mg PO QDAY 06/06/20 06/06/20 Unknown History Bisacodyl [Women's Gentle Laxative] 5 mg PO BID 06/06/20 06/06/20 Unknown History Calcium Carb/Magnesium Hydrox 500 mg PO QDAY 06/06/20 06/06/20 Unknown History [Antacid 1000-200 mg Tab Chew] Cholecalciferol (Vitamin D3) 2,000 unit PO QDAY 06/06/20 06/06/20 Unknown History [Vitamin D3 2,000 UNIT CAP] Dextrose/Dextrin/Maltose 24 gm PO ONCE 06/06/20 06/06/20 Unknown History [Insta-Glucose Gel] Diclofenac 1% [Diclofenac 1% 100 gm TP QDAY 06/06/20 06/06/20 Unknown History topical gel] Dicyclomine [Bentyl] 10 mg PO TID 06/06/20 06/06/20 Unknown History Docusate Sodium [Colace] 100 mg PO BID PRN 06/06/20 06/06/20 Unknown History Furosemide [Lasix] 40 mg PO QDAY 06/06/20 06/06/20 Unknown History Insulin Lispro [Insulin Lispro 10 unit SQ TID 06/06/20 06/06/20 Unknown History Kwikpen U-100] Magnesium Citrate [Citroma] 296 ml PO QDAY 06/06/20 06/06/20 Unknown History Melatonin [Melatonin 3MG TAB] 6 mg PO QHS 06/06/20 06/06/20 Unknown History Oxycodone HCl/Acetaminophen 1 each PO QDAY 06/06/20 06/06/20 Unknown History [Oxycodone-Acetaminophen 10-325] Pantoprazole [Protonix] 40 mg PO QDAY 06/06/20 06/06/20 Unknown History Pioglitazone HCl [Actos] 30 mg PO QDAY 06/06/20 06/06/20 Unknown History Polyethylene Glycol 3350 [Gavilax] 10 gm PO QDAY 06/06/20 06/06/20 Unknown History Pravastatin Sodium [Pravastatin] 10 mg PO QHS 06/06/20 06/06/20 Unknown History Tamsulosin [Flomax] 0.4 mg PO QDAY 06/06/20 06/06/20 Unknown History allopurinoL [Zyloprim] 100 mg PO QDAY 06/06/20 06/06/20 Unknown History lisinopriL [Lisinopril] 20 mg PO QDAY 06/06/20 06/06/20 Unknown History Active Meds: Active Medications Acetaminophen (Acetaminophen 325 Mg Tab) 650 mg PO Q6H PRN PRN Reason: Pain, Mild (1-3) Albuterol (Albuterol 2.5 Mg/3 Ml Nebu) 2.5 mg IH Q3HRT PRN PRN Reason: Shortness Of Breath Allopurinol (Allopurinol 100 Mg Tab) 100 mg PO QDAY [facility] Last Admin: 06/07/20 10:09 Dose: Not Given Documented by: Calcium Carbonate/Glycine (Calcium Carbonate 500 Mg Tab Chew) 500 mg PO QDAY [facility] Last Admin: 06/07/20 10:09 Dose: Not Given Documented by: Cholecalciferol (Cholecalciferol (Vit D3) 1000 Unit (25 Mcg) Tab) 2,000 unit PO QDAY [facility] Last Admin: 06/07/20 10:09 Dose: Not Given Documented by: Diclofenac Sodium (Diclofenac Sodium 1% Topical Gel 100 Gm) 20 applic TP QDAY [facility] Dicyclomine HCl (Dicyclomine 10 Mg Cap) 10 mg PO TID [facility] Last Admin: 06/07/20 08:17 Dose: Not Given Documented by: Docusate Sodium (Docusate Sodium 100 Mg Cap) 100 mg PO BID PRN PRN Reason: Constipation Hydromorphone HCl (Hydromorphone 1 Mg/1 Ml Inj) 0.25 mg IV Q4H PRN PRN Reason: Pain, Moderate (4-6) Dopamine HCl/Dextrose (Intropin Drip 800 Mg/D5w 250 Ml) 800 mg in 250 mls @ 2.885 mls/hr IV TITR ONE; Protocol Stop: 06/10/20 02:39 Last Titration: 06/07/20 06:29 Dose: 6 mcg/kg/min, 8.655 mls/hr Documented by: NORepinephrine/NS 8 MG-250 ML (Norepinephrine/Ns 8 Mg-250 Ml (Double Conc)) 8 mg in 250 mls @ 3.75 mls/hr IV TITRATE [facility]; Protocol Last Titration: 06/07/20 10:07 Dose: 30 mcg/min, 56.25 mls/hr Documented by: Vasopressin 20 unit/ Sodium (Chloride) 101 mls @ 9.09 mls/hr IV TITR [facility]LE[facility]; Protocol Last Admin: 06/07/20 03:31 Dose: 0.03 units/min, 9.09 mls/hr Documented by: Cefepime HCl (Cefepime/Ns 2 Gm/100 Ml) 2 gm in 100 mls @ 200 mls/hr IV Q 24HR@2200 [facility] Lactated Ringer's (Lactated Ringers) 1,000 mls @ 999 mls/hr IV BOLUS [facility] Stop: 06/08/20 13:16 Magnesium Citrate (Magnesium Citrate 300 Ml Oral Liqd) 300 ml PO QDAY PRN PRN Reason: Constipation Pantoprazole Sodium (Pantoprazole 40 Mg Tab) 40 mg PO QDAY [facility] Last Admin: 06/07/20 10:08 Dose: Not Given Documented by: Polyethylene Glycol (Polyethylene Glycol 3350 17 Gm Powder) 17 gm PO QDAY [facility] Last Admin: 06/07/20 10:08 Dose: Not Given Documented by: Pravastatin Sodium (Pravastatin 20 Mg Tab) 10 mg PO QHS [facility] Last Admin: 06/07/20 01:15 Dose: Not Given Documented by: Sodium Chloride (Sodium Chloride 0.9% 10 Ml Flush Syringe) 10 ml IV BID [facility] Last Admin: 06/07/20 10:08 Dose: Not Given Documented by: Sodium Chloride (Sodium Chloride 0.9% 10 Ml Flush Syringe) 10 ml IV PRN PRN PRN Reason: LINE FLUSH Physical Examination - Physical Exam Narrative exam: General appearance: somnolent in NAD on NC O2 Eyes: anicteric sclerae, moist conjunctivae; no lid-lag; PERRLA HENT: Normocephalic, Atraumatic; normal external ears, nares open, oropharynx limited Neck: supple, tracheal midline, no JVD Lungs: diminished BS jabari CV: RRR no murmur Abdomen: Soft, non-tender Extremities: no edema, no cyanosis Skin: No rash. Psych: no agitated Neuro: somnolent open eye to tactile stimuli - Constitutional Vitals: Vital Signs Temp Pulse Resp BP Pulse Ox 97.2 F L 149 H 32 H 81/51 97 06/06/20 19:00 06/07/20 10:15 06/07/20 10:15 06/07/20 10:15 06/07/20 10:15 Temperature -Last 24 Hours Temperature 97.2 F Results - Labs CBC & Chem 7: 06/07/20 02:51 06/07/20 02:51 Labs: Abnormal lab results 06/06/20 06/06/20 06/06/20 Range/Units 10:19 10:19 10:19 RBC (3.65-5.03) M/mm3 Hgb (11.8-15.2) gm/dl Hct (35.5-45.6) % MCV (84-94) fl MCHC (32-34) % Lymphocytes % (Manual) (13.4-35.0) % Monocytes % (Manual) (0.0-7.3) % Lymphocytes # (Manual) (1.2-5.4) K/mm3 ABG pH (7.350-7.450) pH Units ABG pO2 (80.0-90.0) mm Hg ABG HCO3 (20.0-26.0) mmol/L ABG O2 Saturation (95.0-99.0) % ABG Base Excess (-2.0-3.0) mmol/L ABG Hemoglobin (14.0-18.0) gm/dl VBG pH 7.438 H (7.320-7.420) Sodium 135 L (137-145) mmol/L Potassium 6.2 H* (3.6-5.0) mmol/L Carbon Dioxide 19 L (22-30) mmol/L BUN 95 H (9-20) mg/dL Creatinine 3.6 H (0.8-1.3) mg/dL Glucose 124 H (75-100) mg/dL Lactic Acid (0.7-2.0) mmol/L Calcium (8.4-10.2) mg/dL AST 44 H (5-40) units/L ALT (7-56) units/L Ammonia 64.0 H (25-60) umol/L Total Creatine Kinase 629 H (55-170) units/L CK-MB (CK-2) 5.4 H (0.0-4.0) ng/mL Troponin T 0.320 H* (0.00-0.029) ng/mL Total Protein (6.3-8.2) g/dL Albumin 2.7 L (3.9-5) g/dL LDL Cholesterol Direct 28 L (50-130) mg/dL Urine WBC (Auto) (0.0-6.0) /HPF Urine Creatinine (0.1-20.0) mg/dL 06/06/20 06/06/20 06/06/20 Range/Units 11:18 14:02 18:50 RBC (3.65-5.03) M/mm3 Hgb (11.8-15.2) gm/dl Hct (35.5-45.6) % MCV (84-94) fl MCHC (32-34) % Lymphocytes % (Manual) (13.4-35.0) % Monocytes % (Manual) (0.0-7.3) % Lymphocytes # (Manual) (1.2-5.4) K/mm3 ABG pH 7.329 L (7.350-7.450) pH Units ABG pO2 258.1 H (80.0-90.0) mm Hg ABG HCO3 14.3 L (20.0-26.0) mmol/L ABG O2 Saturation 99.4 H (95.0-99.0) % ABG Base Excess -10.5 L (-2.0-3.0) mmol/L ABG Hemoglobin 9.1 L (14.0-18.0) gm/dl VBG pH (7.320-7.420) Sodium (137-145) mmol/L Potassium (3.6-5.0) mmol/L Carbon Dioxide (22-30) mmol/L BUN (9-20) mg/dL Creatinine (0.8-1.3) mg/dL Glucose (75-100) mg/dL Lactic Acid 11.20 H* (0.7-2.0) mmol/L Calcium (8.4-10.2) mg/dL AST (5-40) units/L ALT (7-56) units/L Ammonia (25-60) umol/L Total Creatine Kinase (55-170) units/L CK-MB (CK-2) (0.0-4.0) ng/mL Troponin T (0.00-0.029) ng/mL Total Protein (6.3-8.2) g/dL Albumin (3.9-5) g/dL LDL Cholesterol Direct (50-130) mg/dL Urine WBC (Auto) > 182.0 H (0.0-6.0) /HPF Urine Creatinine (0.1-20.0) mg/dL 06/06/20 06/06/20 06/06/20 Range/Units 20:59 20:59 21:05 RBC (3.65-5.03) M/mm3 Hgb (11.8-15.2) gm/dl Hct (35.5-45.6) % MCV (84-94) fl MCHC (32-34) % Lymphocytes % (Manual) (13.4-35.0) % Monocytes % (Manual) (0.0-7.3) % Lymphocytes # (Manual) (1.2-5.4) K/mm3 ABG pH (7.350-7.450) pH Units ABG pO2 (80.0-90.0) mm Hg ABG HCO3 (20.0-26.0) mmol/L ABG O2 Saturation (95.0-99.0) % ABG Base Excess (-2.0-3.0) mmol/L ABG Hemoglobin (14.0-18.0) gm/dl VBG pH (7.320-7.420) Sodium (137-145) mmol/L Potassium (3.6-5.0) mmol/L Carbon Dioxide 13 L (22-30) mmol/L BUN 93 H (9-20) mg/dL Creatinine 3.6 H (0.8-1.3) mg/dL Glucose 129 H (75-100) mg/dL Lactic Acid 8.70 H* (0.7-2.0) mmol/L Calcium 8.1 L (8.4-10.2) mg/dL AST (5-40) units/L ALT (7-56) units/L Ammonia (25-60) umol/L Total Creatine Kinase (55-170) units/L CK-MB (CK-2) (0.0-4.0) ng/mL Troponin T (0.00-0.029) ng/mL Total Protein (6.3-8.2) g/dL Albumin (3.9-5) g/dL LDL Cholesterol Direct (50-130) mg/dL Urine WBC (Auto) (0.0-6.0) /HPF Urine Creatinine 57.0 H (0.1-20.0) mg/dL 06/06/20 06/07/20 06/07/20 Range/Units 23:26 02:51 02:51 RBC 3.38 L (3.65-5.03) M/mm3 Hgb 10.8 L (11.8-15.2) gm/dl Hct 34.5 L D (35.5-45.6) % MCV 102 H (84-94) fl MCHC 31 L (32-34) % Lymphocytes % (Manual) 8.0 L (13.4-35.0) % Monocytes % (Manual) 12.0 H (0.0-7.3) % Lymphocytes # (Manual) 0.4 L (1.2-5.4) K/mm3 ABG pH (7.350-7.450) pH Units ABG pO2 (80.0-90.0) mm Hg ABG HCO3 (20.0-26.0) mmol/L ABG O2 Saturation (95.0-99.0) % ABG Base Excess (-2.0-3.0) mmol/L ABG Hemoglobin (14.0-18.0) gm/dl VBG pH (7.320-7.420) Sodium (137-145) mmol/L Potassium (3.6-5.0) mmol/L Carbon Dioxide 15 L (22-30) mmol/L BUN 100 H (9-20) mg/dL Creatinine 3.6 H (0.8-1.3) mg/dL Glucose 151 H (75-100) mg/dL Lactic Acid 6.50 H* (0.7-2.0) mmol/L Calcium 7.9 L (8.4-10.2) mg/dL AST 135 H (5-40) units/L ALT 70 H (7-56) units/L Ammonia (25-60) umol/L Total Creatine Kinase (55-170) units/L CK-MB (CK-2) (0.0-4.0) ng/mL Troponin T (0.00-0.029) ng/mL Total Protein 6.2 L (6.3-8.2) g/dL Albumin 3.2 L (3.9-5) g/dL LDL Cholesterol Direct (50-130) mg/dL Urine WBC (Auto) (0.0-6.0) /HPF Urine Creatinine (0.1-20.0) mg/dL 06/07/20 06/07/20 Range/Units 04:02 10:19 RBC (3.65-5.03) M/mm3 Hgb (11.8-15.2) gm/dl Hct (35.5-45.6) % MCV (84-94) fl MCHC (32-34) % Lymphocytes % (Manual) (13.4-35.0) % Monocytes % (Manual) (0.0-7.3) % Lymphocytes # (Manual) (1.2-5.4) K/mm3 ABG pH (7.350-7.450) pH Units ABG pO2 (80.0-90.0) mm Hg ABG HCO3 (20.0-26.0) mmol/L ABG O2 Saturation (95.0-99.0) % ABG Base Excess (-2.0-3.0) mmol/L ABG Hemoglobin (14.0-18.0) gm/dl VBG pH (7.320-7.420) Sodium (137-145) mmol/L Potassium (3.6-5.0) mmol/L Carbon Dioxide (22-30) mmol/L BUN (9-20) mg/dL Creatinine (0.8-1.3) mg/dL Glucose (75-100) mg/dL Lactic Acid 3.30 H* 2.90 H* (0.7-2.0) mmol/L Calcium (8.4-10.2) mg/dL AST (5-40) units/L ALT (7-56) units/L Ammonia (25-60) umol/L Total Creatine Kinase (55-170) units/L CK-MB (CK-2) (0.0-4.0) ng/mL Troponin T (0.00-0.029) ng/mL Total Protein (6.3-8.2) g/dL Albumin (3.9-5) g/dL LDL Cholesterol Direct (50-130) mg/dL Urine WBC (Auto) (0.0-6.0) /HPF Urine Creatinine (0.1-20.0) mg/dL Assessment and Plan Cultures: Blood culture 06/06/2020 no growth today Assessment: 80 years old male with history of dementia, CVA, debility, diabetes mellitus, secondary to few hours of unresponsiveness at breakfast at his assisted living facility: #Sepsis with septic shock: present on admission with fever, tachycardia, hypotension, elevated lactate; source UTI +/- acute diarrhea #Acute hypoxemic respiratory failure: now on NC O2. CXR clear, should r/o COVID vs volume overload #UTI: with hematuria #Diarrhea: ?colitis #Acute encephalopathy: due to sepsis> CT no acute changes #ISAAC: ? from sepsis Recommendations: -Continue cefepime renally adjusted -Add IV vancomycin renally adjusted -F/u blood culture, urine culture -Send stool for C diff -Obtain SARS Cov2 PCR -CT abdomen/pelvis when stable Will follow. Nona Childs MD Infectious Diseases Assistant Community Manager [facility] M [phone] O [phone]
[2020-06-07] MEDS: DOPamine/D5W 800 MG/250 ML 800 MG/250 ML BAG IV ONE (14:45)
--- NOTE | 2020-06-07 15:09 | Consultation ---
History of Present Illness - Reason for Consult Consult date: 06/07/20 acute renal failure, hyperkalemia - History of Present Illness The patient is a 80 YO male with history significant for DM type 2, HTN, Vascular Dementia and Debility who presented to [facility] ED 06/06 for evaluation after he developed an episode of unresponsiveness while at breakfast. Patient was not able to provide any history and there was no family member at the bedside. Patient was transported to the ED by EMS. The patient was found to have shock requiring multiple vasopressors. Labs significant for Creat 3.6, BUN 95, bicarb 19, Lactae 11 and elevated Troponin. He was admitted for treatment of UTI complicated by sepsis, septic shock, ISAAC and toxic metabolic encephalopathy. Nephrology was consulted further evaluation and treatment of ISAAC. Past History Past Medical History: diabetes, other (See HPI) Past Surgical History: No surgical history, Other (Reviewed) Social history: Family history: diabetes, hypertension Medications and Allergies Allergies Allergy/AdvReac Type Severity Reaction Status Date / Time No Known Allergies Allergy Verified 06/06/20 15:21 Home Medications Medication Instructions Recorded Confirmed Last Taken Type Amlodipine Besylate [Norvasc] 5 mg PO QDAY 06/06/20 06/06/20 Unknown History Bisacodyl [Women's Gentle Laxative] 5 mg PO BID 06/06/20 06/06/20 Unknown History Calcium Carb/Magnesium Hydrox 500 mg PO QDAY 06/06/20 06/06/20 Unknown History [Antacid 1000-200 mg Tab Chew] Cholecalciferol (Vitamin D3) 2,000 unit PO QDAY 06/06/20 06/06/20 Unknown Histo ry [Vitamin D3 2,000 UNIT CAP] Dextrose/Dextrin/Maltose 24 gm PO ONCE 06/06/20 06/06/20 Unknown History [Insta-Glucose Gel] Diclofenac 1% [Diclofenac 1% 100 gm TP QDAY 06/06/20 06/06/20 Unknown History topical gel] Dicyclomine [Bentyl] 10 mg PO TID 06/06/20 06/06/20 Unknown History Docusate Sodium [Colace] 100 mg PO BID PRN 06/06/20 06/06/20 Unknown History Furosemide [Lasix] 40 mg PO QDAY 06/06/20 06/06/20 Unknown History Insulin Lispro [Insulin Lispro 10 unit SQ TID 06/06/20 06/06/20 Unknown History Kwikpen U-100] Magnesium Citrate [Citroma] 296 ml PO QDAY 06/06/20 06/06/20 Unknown History Melatonin [Melatonin 3MG TAB] 6 mg PO QHS 06/06/20 06/06/20 Unknown History Oxycodone HCl/Acetaminophen 1 each PO QDAY 06/06/20 06/06/20 Unknown History [Oxycodone-Acetaminophen 10-325] Pantoprazole [Protonix] 40 mg PO QDAY 06/06/20 06/06/20 Unknown History Pioglitazone HCl [Actos] 30 mg PO QDAY 06/06/20 06/06/20 Unknown History Polyethylene Glycol 3350 [Gavilax] 10 gm PO QDAY 06/06/20 06/06/20 Unknown History Pravastatin Sodium [Pravastatin] 10 mg PO QHS 06/06/20 06/06/20 Unknown History Tamsulosin [Flomax] 0.4 mg PO QDAY 06/06/20 06/06/20 Unknown History allopurinoL [Zyloprim] 100 mg PO QDAY 06/06/20 06/06/20 Unknown History lisinopriL [Lisinopril] 20 mg PO QDAY 06/06/20 06/06/20 Unknown History Active Meds: Active Medications Acetaminophen (Acetaminophen 325 Mg Tab) 650 mg PO Q6H PRN PRN Reason: Pain, Mild (1-3) Albuterol (Albuterol 2.5 Mg/3 Ml Nebu) 2.5 mg IH Q3HRT PRN PRN Reason: Shortness Of Breath Allopurinol (Allopurinol 100 Mg Tab) 100 mg PO QDAY [facility] Last Admin: 06/07/20 10:09 Dose: Not Given Documented by: Calcium Carbonate/Glycine (Calcium Carbonate 500 Mg Tab Chew) 500 mg PO QDAY [facility] Last Admin: 06/07/20 10:09 Dose: Not Given Documented by: Cholecalciferol (Cholecalciferol (Vit D3) 1000 Unit (25 Mcg) Tab) 2,000 unit PO QDAY [facility] Last Admin: 06/07/20 10:09 Dose: Not Given Documented by: Diclofenac Sodium (Diclofenac Sodium 1% Topical Gel 100 Gm) 20 applic TP QDAY [facility] Dicyclomine HCl (Dicyclomine 10 Mg Cap) 10 mg PO TID [facility] Last Admin: 06/07/20 14:31 Dose: Not Given Documented by: Docusate Sodium (Docusate Sodium 100 Mg Cap) 100 mg PO BID PRN PRN Reason: Constipation Hydromorphone HCl (Hydromorphone 1 Mg/1 Ml Inj) 0.25 mg IV Q4H PRN PRN Reason: Pain, Moderate (4-6) Dopamine HCl/Dextrose (Intropin Drip 800 Mg/D5w 250 Ml) 800 mg in 250 mls @ 2.885 mls/hr IV TITR ONE; Protocol Stop: 06/10/20 02:39 Last Titration: 06/07/20 06:29 Dose: 6 mcg/kg/min, 8.655 mls/hr Documented by: NORepinephrine/NS 8 MG-250 ML (Norepinephrine/Ns 8 Mg-250 Ml (Double Conc)) 8 mg in 250 mls @ 3.75 mls/hr IV TITRATE [facility]LENA; Protocol Last Titration: 06/07/20 10:07 Dose: 30 mcg/min, 56.25 mls/hr Documented by: Vasopressin 20 unit/ Sodium (Chloride) 101 mls @ 9.09 mls/hr IV TITR [facility]; Protocol Last Admin: 06/07/20 14:31 Dose: 0.03 units/min, 9.09 mls/hr Documented by: Cefepime HCl (Cefepime/Ns 2 Gm/100 Ml) 2 gm in 100 mls @ 200 mls/hr IV Q24HR@2200 [facility] Lactated Ringer's (Lactated Ringers) 1,000 mls @ 999 mls/hr IV BOLUS [facility] Stop: 06/08/20 13:16 Lactated Ringer's (Lactated Ringers 1000 Ml Iv Soln) 1,000 ml IV BOLUS [facility] Stop: 06/09/20 13:16 Magnesium Citrate (Magnesium Citrate 300 Ml Oral Liqd) 300 ml PO QDAY PRN PRN Reason: Constipation Pantoprazole Sodium (Pantoprazole 40 Mg Tab) 40 mg PO QDAY [facility] Last Admin: 06/07/20 10:08 Dose: Not Given Documented by: Polyethylene Glycol (Polyethylene Glycol 3350 17 Gm Powder) 17 gm PO QDAY [facility] Last Admin: 06/07/20 10:08 Dose: Not Given Documented by: Pravastatin Sodium (Pravastatin 20 Mg Tab) 10 mg PO QHS [facility] Last Admin: 06/07/20 01:15 Dose: Not Given Documented by: Sodium Chloride (Sodium Chloride 0.9% 10 Ml Flush Syringe) 10 ml IV BID [facility] Last Admin: 06/07/20 10:08 Dose: Not Given Documented by: Sodium Chloride (Sodium Chloride 0.9% 10 Ml Flush Syringe) 10 ml IV PRN PRN PRN Reason: LINE FLUSH Review of Systems ROS unobtainable: due to mental status Exam - Vital Signs Vital signs: Vital Signs Temp Pulse Resp BP Pulse Ox 97.7 F 87 27 H 134/106 94 06/06/20 10:10 06/06/20 10:10 06/06/20 10:10 06/06/20 10:10 06/06/20 10:10 Results - Lab Results 06/07/20 02:51 06/07/20 02:51 Most recent lab results ABG pH 7.329 pH Units (7.350-7.450) L 06/06/20 11:18 ABG pCO2 27.8 mm Hg 06/06/20 11:18 ABG pO2 258.1 mm Hg (80.0-90.0) H 06/06/20 11:18 ABG HCO3 14.3 mmol/L (20.0-26.0) L 06/06/20 11:18 ABG O2 Saturation 99.4 % (95.0-99.0) H 06/06/20 11:18 Calcium 7.9 mg/dL (8.4-10.2) L 06/07/20 02:51 Urine Creatinine 57.0 mg/dL (0.1-20.0) H 06/06/20 21:05 Urine Sodium 85 mmol/L 06/06/20 21:05 Assessment and Plan 1. Acute kidney injury: Vasomotor ISAAC in the setting of shock. Renal US ordered, pending. Baseline renal function is unknown. Gentle IV fluids. Monitor renal function. Creatinine level remains high. Avoid nephrotoxic agents. Meds dosage based on GFR. 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 Currently the risks of hemodialysis outweighs any benefit due to multipressor shock. 2. FEN: Hyperkalemia, improved, monitor. Anion-gap metabolic acidoosis, 2/2 Lactic acidosis, bicarb drip, monitor. Monitor lytes and volume status. 3. Sepsis with shock: Currently on 3 pressors. Monitor BP. 4. UTI: Abx per ID. 5. Acute hypoxemic respiratory failure: NC O2. CXR clear. COVID test pending. 6. Diarrhea: ?Colitis. 7. Metabolic encephalopathy: Monitor. 8. H/o Dementia: Supportive care. 9. H/o HTN: Monitor BP. 10. Anemia, POA: Monitor. Subjective: Patient was seen and examined at the bedside. Objective: General appearance: well-developed, appears stated age, not in distress, NC O2 HEENT: ATNC Neck: trachea midline Respiratory: ctab Heart: regular, S1S2, no murmur Gastrointestinal: soft, normoactive bowel sounds, not tender Integumentary: no rash, warm and dry Ext: no edema Neurologic: somnolent, able to tell his name, not following any command Ext: no edema : Hair catheter
[2020-06-07] MEDS ORDERED: VANCOMYCIN 1,500 MG in SODIUM CHLORIDE 0.9% 500 ML 500 ML IV ONE (16:00)
[2020-06-07] MEDS ORDERED: VANCOMYCIN PHARMACY TO DOSE IV SCH (16:00)
[2020-06-07] MEDS ORDERED: SODIUM CHLORIDE 0.45% 1000 ML 1,000 ML IV SCH (17:00)
[2020-06-07] MEDS ORDERED: STERILE NICU ONLY IV SCH (17:00)
[2020-06-07] MEDS ORDERED: WATER IV SCH (17:00)
[2020-06-07] MEDS ORDERED: SODIUM BICARBONATE IV SCH (17:00)
[2020-06-07] MEDS: SODIUM BICARBONATE 100 MEQ in WATER FOR INJECTION (PF) 1,000 ML IV SCH (17:51)
[2020-06-07] MEDS: LACTATED RINGERS 1000 ML IV SOLN IV SCH ×2 (19:01→22:09)
[2020-06-07] MEDS: LACTATED RINGERS 1,000 ML IV SCH ×2 (19:02→22:09)
--- NOTE | 2020-06-07 19:03 | Progress Note ---
Assessment and Plan Assessment and plan: -CCM, infectious disease, nephrology consulted, patient recommendations -Vasopressor support with dopamine, Levophed, vasopressin -5 L LR bolus pending -S/p 4.3 L normal saline bolus -Bicarbonate drip -Antibiotic therapy per infectious disease -Blood cultures x2 pending -Urinalysis shows urinary tract infection -C. difficile pending -Droplet/contact isolation, COVID-19 PCR pending -Trend BMP, CBC GI/DVT prophylaxis: Protonix, heparin subcu, SCDs to bilateral lower extremities while in bed Disposition: ICU History Interval history: This is a 80-year-old male who is a resident of assisted living facility with vascular dementia, cerebral sclerosis, debility, diabetes mellitus who presents to the emergency department on 06/06 with complaints of lethargy and diminished cognition as per daughter he developed an episode of unresponsiveness while at breakfast at at his assisted living facility. Patient was found to have a urinary tract infection complicated by sepsis and septic shock, acute kidney injury, toxic metabolic encephalopathy as well as metabolic acidosis. Patient was hypotensive with systolic blood pressures in the 50s and was initiated on v asopressor support in the emergency department. Patient was admitted to the hospital service with consults to nephrology and [facility]. Septic Shock Metabolic encephalopathy Urinary tract infection Acute hypoxic respiratory failure Acute kidney injury Metabolic acidosis Diarrhea Dementia Hypertension Anemia Leukopenia 06/07: Patient remains on dopamine, vasopressin and Levophed. Nephrology has started the patient on sodium bicarbonate drip for metabolic acidosis. Infectious disease initiated vancomycin in addition to the cefepime and ordered a C. difficile. Hospitalist Physical - Constitutional Vitals: Temp Pulse Resp BP Pulse Ox 97.2 F L 112 H 23 112/56 100 06/06/20 19:00 06/07/20 18:30 06/07/20 18:30 06/07/20 18:30 06/07/20 18:30 General appearance: Present: severe distress HEART Score - HEART Score Troponin: Troponin T 0.320 ng/mL (0.00-0.029) H* 06/06/20 10:19 Results - Labs CBC & Chem 7: 06/07/20 02:51 06/07/20 02:51 Labs: Laboratory Last Values WBC 5.3 K/mm3 (4.5-11.0) 06/07/20 02:51 RBC 3.38 M/mm3 (3.65-5.03) L 06/07/20 02:51 Hgb 10.8 gm/dl (11.8-15.2) L 06/07/20 02:51 Hct 34.5 % (35.5-45.6) L D 06/07/20 02:51 MCV 102 fl (84-94) H 06/07/20 02:51 MCH 32 pg (28-32) 06/07/20 02:51 MCHC 31 % (32-34) L 06/07/20 02:51 RDW 15.0 % (13.2-15.2) 06/07/20 02:51 Plt Count 190 K/mm3 (140-440) 06/07/20 02:51 Lymph % (Auto) 53.7 % (13.4-35.0) H 06/06/20 10:19 Young % (Auto) Catalogue Clerk 06/07/20 02:51 Eos % (Auto) 1.6 % (0.0-4.3) 06/06/20 10:19 Baso % (Auto) 0.3 % (0.0-1.8) 06/06/20 10:19 Lymph # (Auto) 2.4 K/mm3 (1.2-5.4) 06/06/20 10:19 Young # (Auto) 0.3 K/mm3 (0.0-0.8) 06/06/20 10:19 Eos # (Auto) 0.1 K/mm3 (0.0-0.4) 06/06/20 10:19 Baso # (Auto) 0.0 K/mm3 (0.0-0.1) 06/06/20 10:19 Add Manual Diff Complete 06/07/20 02:51 Total Counted 100 06/07/20 02:51 Seg Neutrophils % 37.6 % (40.0-70.0) L 06/06/20 10:19 Seg Neuts % (Manual) 66.0 % (40.0-70.0) 06/07/20 02:51 Band Neutrophils % 14.0 % 06/07/20 02:51 Lymphocytes % (Manual) 8.0 % (13.4-35.0) L 06/07/20 02:51 Monocytes % (Manual) 12.0 % (0.0-7.3) H 06/07/20 02:51 Nucleated RBC % Not Reportable 06/07/20 02:51 Seg Neutrophils # 1.7 K/mm3 (1.8-7.7) L 06/06/20 10:19 Seg Neutrophils # Man 3.5 K/mm3 (1.8-7.7) 06/07/20 02:51 Band Neutrophils # 0.7 K/mm3 06/07/20 02:51 Lymphocytes # (Manual) 0.4 K/mm3 (1.2-5.4) L 06/07/20 02:51 Abs React Lymphs (Man) 0.0 K/mm3 06/07/20 02:51 Monocytes # (Manual) 0.6 K/mm3 (0.0-0.8) 06/07/20 02:51 Eosinophils # (Manual) 0.0 K/mm3 (0.0-0.4) 06/07/20 02:51 Basophils # (Manual) 0.0 K/mm3 (0.0-0.1) 06/07/20 02:51 Metamyelocytes # 0.0 K/mm3 06/07/20 02:51 Myelocytes # 0.0 K/mm3 06/07/20 02:51 Promyelocytes # 0.0 K/mm3 06/07/20 02:51 Blast Cells # 0.0 K/mm3 06/07/20 02:51 WBC Morphology Not Reportable 06/07/20 02:51 Hypersegmented Neuts Not Reportable 06/07/20 02:51 Hyposegmented Neuts Not Reportable 06/07/20 02:51 Hypogranular Neuts Not Reportable 06/07/20 02:51 Smudge Cells Not Reportable 06/07/20 02:51 Toxic Granulation Not Reportable 06/07/20 02:51 Toxic Vacuolation Not Reportable 06/07/20 02:51 Dohle Bodies Not Reportable 06/07/20 02:51 Pelger-Huet Anomaly Not Reportable 06/07/20 02:51 Denys Rods Not Reportable 06/07/20 02:51 Platelet Estimate Consistent w auto 06/07/20 02:51 Clumped Platelets Not Reportable 06/07/20 02:51 Plt Clumps, EDTA Not Reportable 06/07/20 02:51 Large Platelets Not Reportable 06/07/20 02:51 Giant Platelets Not Reportable 06/07/20 02:51 Platelet Satelliting Not Reportable 06/07/20 02:51 Plt Morphology Comment Not Reportable 06/07/20 02:51 RBC Morphology Normal 06/07/20 02:51 Dimorphic RBCs Not Reportable 06/07/20 02:51 Polychromasia Not Reportable 06/07/20 02:51 Hypochromasia Not Reportable 06/07/20 02:51 Poikilocytosis Not Reportable 06/07/20 02:51 Anisocytosis Not Reportable 06/07/20 02:51 Microcytosis Not Reportable 06/07/20 02:51 Macrocytosis Not Reportable 06/07/20 02:51 Spherocytes Not Reportable 06/07/20 02:51 Pappenheimer Bodies Not Reportable 06/07/20 02:51 Sickle Cells Not Reportable 06/07/20 02:51 Target Cells Not Reportable 06/07/20 02:51 Tear Drop Cells Not Reportable 06/07/20 02:51 Ovalocytes Not Reportable 06/07/20 02:51 Helmet Cells Not Reportable 06/07/20 02:51 Brenner-Hardin Bodies Not Reportable 06/07/20 02:51 Flynn Rings Not Reportable 06/07/20 02:51 [place] Cells Not Reportable 06/07/20 02:51 Bite Cells Not Reportable 06/07/20 02:51 Crenated Cell Not Reportable 06/07/20 02:51 Elliptocytes Not Reportable 06/07/20 02:51 Acanthocytes (Spur) Not Reportable 06/07/20 02:51 Rouleaux Not Reportable 06/07/20 02:51 Hemoglobin C Crystals Not Reportable 06/07/20 02:51 Schistocytes Not Reportable 06/07/20 02:51 Malaria parasites Not Reportable 06/07/20 02:51 Chance Bodies Not Reportable 06/07/20 02:51 Hem Pathologist Commnt No 06/07/20 02:51 PT 16.3 Sec. (12.2-14.9) H 06/06/20 10:19 INR 1.33 (0.87-1.13) H 06/06/20 10:19 APTT 31.6 Sec. (24.2-36.6) 06/06/20 10:19 ABG pH 7.329 pH Units (7.350-7.450) L 06/06/20 11:18 ABG pCO2 27.8 mm Hg 06/06/20 11:18 ABG pO2 258.1 mm Hg (80.0-90.0) H 06/06/20 11:18 ABG HCO3 14.3 mmol/L (20.0-26.0) L 06/06/20 11:18 ABG O2 Saturation 99.4 % (95.0-99.0) H 06/06/20 11:18 ABG O2 Content 13.2 (0.0-44) 06/06/20 11:18 ABG Base Excess -10.5 mmol/L (-2.0-3.0) L 06/06/20 11:18 ABG Hemoglobin 9.1 gm/dl (14.0-18.0) L 06/06/20 11:18 ABG Carboxyhemoglobin 1.3 % (0.0-5.0) 06/06/20 11:18 ABG Methemoglobin Not Reportable 06/06/20 11:18 VBG pH 7.438 (7.320-7.420) H 06/06/20 10:19 Oxyhemoglobin 98.2 % (95.0-99.0) 06/06/20 11:18 FiO2 21 % 06/06/20 11:18 Sodium 141 mmol/L (137-145) 06/07/20 02:51 Potassium 5.0 mmol/L (3.6-5.0) 06/07/20 02:51 Chloride 104.0 mmol/L (98-107) 06/07/20 02:51 Carbon Dioxide 15 mmol/L (22-30) L 06/07/20 02:51 Anion Gap 27 mmol/L 06/07/20 02:51 BUN 100 mg/dL (9-20) H 06/07/20 02:51 Creatinine 3.6 mg/dL (0.8-1.3) H 06/07/20 02:51 Estimated GFR 20 ml/min 06/07/20 02:51 BUN/Creatinine Ratio 28 % 06/07/20 02:51 Glucose 151 mg/dL (75-100) H 06/07/20 02:51 POC Glucose 122 mg/dL (70-105) H 06/06/20 09:47 Lactic Acid 2.90 mmol/L (0.7-2.0) H* 06/07/20 10:19 Calcium 7.9 mg/dL (8.4-10.2) L 06/07/20 02:51 Total Bilirubin 0.40 mg/dL (0.1-1.2) 06/07/20 02:51 AST 135 units/L (5-40) H 06/07/20 02:51 ALT 70 units/L (7-56) H 06/07/20 02:51 Alkaline Phosphatase 82 units/L (35-129) 06/07/20 02:51 Ammonia 64.0 umol/L (25-60) H 06/06/20 10:19 Total Creatine Kinase 629 units/L (55-170) H 06/06/20 10:19 CK-MB (CK-2) 5.4 ng/mL (0.0-4.0) H 06/06/20 10:19 CK-MB (CK-2) Rel Index 0.8 (0-4) 06/06/20 10:19 Troponin T 0.320 ng/mL (0.00-0.029) H* 06/06/20 10:19 Total Protein 6.2 g/dL (6.3-8.2) L 06/07/20 02:51 Albumin 3.2 g/dL (3.9-5) L 06/07/20 02:51 Albumin/Globulin Ratio 1.1 % 06/07/20 02:51 Triglycerides 103 mg/dL (2-149) 06/06/20 10:19 Cholesterol 84 mg/dL (50-199) 06/06/20 10:19 LDL Cholesterol Direct 28 mg/dL (50-130) L 06/06/20 10:19 HDL Cholesterol 44 mg/dL (40-59) 06/06/20 10:19 Cholesterol/HDL Ratio 1.90 % 06/06/20 10:19 TSH 4.440 mlU/mL (0.270-4.200) H 06/06/20 10:19 Free T4 1.55 ng/dL (0.76-1.46) H 06/06/20 10:19 Urine Color Yellow (Yellow) 06/06/20 14:02 Urine Turbidity Cloudy (Clear) 06/06/20 14:02 Urine pH 6.0 (5.0-7.0) 06/06/20 14:02 Ur Specific [place] 1.013 (1.003-1.030) 06/06/20 14:02 Urine Protein 100 mg/dl mg/dL (Negative) 06/06/20 14:02 Urine Glucose (UA) Neg mg/dL (Negative) 06/06/20 14:02 Urine Ketones Neg mg/dL (Negative) 06/06/20 14:02 Urine Blood Sm (Negative) 06/06/20 14:02 Urine Nitrite Neg (Negative) 06/06/20 14:02 Urine Bilirubin Neg (Negative) 06/06/20 14:02 Urine Urobilinogen < 2.0 mg/dL (<2.0) 06/06/20 14:02 Ur Leukocyte Esterase Lg (Negative) 06/06/20 14:02 Urine WBC (Auto) > 182.0 /HPF (0.0-6.0) H 06/06/20 14:02 Urine RBC (Auto) 55.0 /HPF (0.0-6.0) 06/06/20 14:02 U Epithel Cells (Auto) 1.0 /HPF (0-13.0) 06/06/20 14:02 Urine WBC Clumps 2+ /HPF 06/06/20 14:02 Urine Creatinine 57.0 mg/dL (0.1-20.0) H 06/06/20 21:05 Urine Sodium 85 mmol/L 06/06/20 21:05 Urine Opiates Screen Presumptive negative 06/06/20 14:02 Urine Methadone Screen Presumptive negative 06/06/20 14:02 Ur Barbiturates Screen Presumptive negative 06/06/20 14:02 Ur Phencyclidine Scrn Presumptive negative 06/06/20 14:02 Ur Amphetamines Screen Presumptive negative 06/06/20 14:02 U Benzodiazepines Scrn Presumptive negative 06/06/20 14:02 Urine Cocaine Screen Presumptive negative 06/06/20 14:02 U Marijuana (THC) Screen Presumptive negative 06/06/20 14:02 Drugs of Abuse Note Disclamer 06/06/20 14:02 Plasma/Serum Alcohol < 0.01 % (0-0.07) 06/06/20 10:19 Blood Type O POSITIVE 06/06/20 14:47 Antibody Screen Negative 06/06/20 14:47 Microbiology: Microbiology 06/06/20 10:19 Peripheral/Venous Blood Culture - Preliminary 06/06/20 10:19 Peripheral/Venous Blood Culture - Preliminary NO GROWTH AFTER 24 HOURS Active Medications - Current Medications Current Medications: Generic Name Dose Route Start Last Admin Trade Name Freq PRN Reason Stop Dose Admin Acetaminophen 650 mg 06/06/20 15:00 Acetaminophen 325 Mg Tab PO Q6H PRN Pain, Mild (1-3) Albuterol 2.5 mg 06/06/20 15:00 Albuterol 2.5 Mg/3 Ml Nebu IH Q3HRT PRN Shortness Of Breath Allopurinol 100 mg 06/07/20 10:00 06/07/20 10:09 Allopurinol 100 Mg Tab PO Not Given QDAY [facility] Calcium Carbonate/Glycine 500 mg 06/07/20 10:00 06/07/20 10:09 Calcium Carbonate 500 Mg Tab Chew PO Not Given QDAY [facility] Cholecalciferol 2,000 unit 06/07/20 10:00 06/07/20 10:09 Cholecalciferol (Vit D3) 1000 Unit (25 Mcg) Tab PO Not Given QDAY [facility] Diclofenac Sodium 20 applic 06/07/20 10:00 Diclofenac Sodium 1% Topical Gel 100 Gm TP QDAY [facility] Dicyclomine HCl 10 mg 06/06/20 20:00 06/07/20 14:31 Dicyclomine 10 Mg Cap PO Not Given TID YELENA Docusate Sodium 100 mg 06/06/20 15:57 Docusate Sodium 100 Mg Cap PO BID PRN Constipation Hydromorphone HCl 0.25 mg 06/06/20 15:00 Hydromorphone 1 Mg/1 Ml Inj IV Q4H PRN Pain, Moderate (4-6) Dopamine HCl/Dextrose 800 mg in 250 mls @ 2.885 mls/hr 06/06/20 12:00 06/07/20 14:45 Intropin Drip 800 Mg/D5w 250 Ml IV 06/10/20 02:39 6 mcg/kg/min TITR ONE 8.655 mls/hr Administration Protocol 2 MCG/KG/MIN NORepinephrine/NS 8 MG-250 ML 8 mg in 250 mls @ 3.75 mls/hr 06/06/20 20:00 06/07/20 10:07 Norepinephrine/Ns 8 Mg-250 Ml (Double Conc) IV 30 mcg/min TITRATE YELENA 56.25 mls/hr Titration Protocol 2 MCG/MIN Vasopressin 20 unit/ Sodium 101 mls @ 9.09 mls/hr 06/07/20 03:00 06/07/20 14:31 Chloride IV 0.03 units/min TITR YELENA 9.09 mls/hr Administration Protocol 0.03 UNITS/MIN Cefepime HCl 2 gm in 100 mls @ 200 mls/hr 06/07/20 22:00 Cefepime/Ns 2 Gm/100 Ml IV [id number]@2200 YELENA Lactated Ringer's 1,000 mls @ 999 mls/hr 06/07/20 12:15 06/07/20 19:02 Lactated Ringers IV 06/08/20 13:16 999 mls/hr BOLUS YELENA Administration Sodium Bicarbonate 100 meq/ 1,100 mls @ 75 mls/hr 06/07/20 17:00 06/07/20 17 :51 Sterile Water IV 75 mls/hr DIRECT YELENA Administration Lactated Ringer's 1,000 ml 06/07/20 13:15 06/07/20 19:01 Lactated Ringers 1000 Ml Iv Soln IV 06/09/20 13:16 1,000 ml BOLUS YELENA Administration Magnesium Citrate 300 ml 06/06/20 16:20 Magnesium Citrate 300 Ml Oral Liqd PO QDAY PRN Constipation Pantoprazole Sodium 40 mg 06/07/20 10:00 06/07/20 10:08 Pantoprazole 40 Mg Tab PO Not Given QDAY YELENA Polyethylene Glycol 17 gm 06/07/20 10:00 06/07/20 10:08 Polyethylene Glycol 3350 17 Gm Powder PO Not Given QDAY YELENA Pravastatin Sodium 10 mg 06/06/20 22:00 06/07/20 01:15 Pravastatin 20 Mg Tab PO Not Given QHS YELENA Sodium Chloride 10 ml 06/06/20 15:00 06/07/20 10:08 Sodium Chloride 0.9% 10 Ml Flush Syringe IV Not Given BID YELENA Sodium Chloride 10 ml 06/06/20 15:00 Sodium Chloride 0.9% 10 Ml Flush Syringe IV PRN PRN LINE FLUSH
[2020-06-07] MEDS: HEPARIN 5,000 UNIT/1 ML VIAL SUB-Q SCH (22:07)
[2020-06-07] MEDS: CEFEPIME/NS 2 GM/100 ML 2 GM/100 ML BAG IV SCH (22:07)
[2020-06-08] MEDS: LACTATED RINGERS 1000 ML IV SOLN IV SCH (00:25)
[2020-06-08] MEDS: VASOPRESSIN 20 UNIT in SODIUM CHLORIDE 0.9% 100 ML IV SCH ×3 (01:06→21:15)
[2020-06-08] MEDS: NORepinephrine/NS 8 MG-250 ML 8 MG/250 ML INFUS..BTL IV SCH (04:15)
[2020-06-08] MEDS: PRAVASTATIN 20 MG TAB PO SCH (04:48)
[2020-06-08] MEDS: DICYCLOMINE 10 MG CAP PO SCH ×3 (04:48→13:44)
[2020-06-08 05:36] LABS: Hematocrit 26.7 % (35.5-45.6); Hemoglobin 8.8 gm/dl (11.8-15.2); Mean Corpuscular HGB Conc 33 % (32-34); Mean Corpuscular Volume 99 fl (84-94); Platelet Count 170 K/mm3 (140-440); Red Blood Count 2.71 M/mm3 (3.65-5.03); Red Cell Distribution Width 14.4 % (13.2-15.2)
[2020-06-08 06:39] LABS: Calcium 7.2 mg/dL (8.4-10.2)
--- NOTE | 2020-06-08 09:55 | Progress Note ---
Assessment and Plan 1. Acute kidney injury: Vasomotor ISAAC in the setting of shock. Renal US ordered, pending. Baseline renal function is unknown. Gentle IV fluids. Monitor renal function. Slight decrease in the creatinine level noted. Avoid nephrotoxic agents. Meds dosage based on GFR. 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 Currently the risks of hemodialysis outweighs any benefit due to multipressor shock. 2. FEN: Hyperkalemia, improved, monitor. Anion-gap metabolic acidoosis, 2/2 Lactic acidosis, bicarb drip, monitor. Monitor lytes and volume status. 3. Sepsis with shock: Currently on 3 pressors. Monitor BP. 4. UTI: Abx per ID. 5. Acute hypoxemic respiratory failure: NC O2. CXR clear. COVID test negative. 6. Diarrhea: ?Colitis. C.diff negative. 7. Metabolic encephalopathy: Monitor. 8. H/o Dementia: Supportive care. 9. H/o HTN: Monitor BP. 10. Anemia, POA: Monitor. Subjective: Patient was seen and examined at the bedside. Objective: General appearance: well-developed, appears stated age, not in distress, NC O2 HEENT: ATNC Neck: trachea midline Respiratory: ctab Heart: regular, S1S2, no murmur Gastrointestinal: soft, normoactive bowel sounds, not tender Integumentary: no rash, warm and dry Ext: no edema Neurologic: somnolent, able to tell his name, not following any command Ext: no edema : Hair catheter Subjective Date of service: 06/08/20 Objective - Vital Signs Vital signs: Vital Signs - 12hr 06/07/20 06/07/20 06/07/20 22:00 22:10 22:20 Temperature Pulse Rate 93 H 91 H 99 H Pulse Rate [ From Monitor] Respiratory 19 20 19 Rate Blood Pressure 139/59 139/59 140/64 O2 Sat by Pulse 97 Oximetry 06/07/20 06/07/20 06/07/20 22:30 22:40 22:50 Temperature Pulse Rate 98 H 97 H 95 H Pulse Rate [ From Monitor] Respiratory 22 19 18 Rate Blood Pressure 140/64 140/62 O2 Sat by Pulse 99 99 99 Oximetry 06/07/20 06/07/20 06/07/20 23:00 23:10 23:20 Temperature Pulse Rate 92 H 98 H 99 H Pulse Rate [ 99 H From Monitor] Respiratory 19 15 18 Rate Blood Pressure 143/59 143/59 137/60 O2 Sat by Pulse 100 99 99 Oximetry 06/07/20 06/07/20 06/07/20 23:30 23:40 23:50 Temperature Pulse Rate 105 H 97 H 92 H Pulse Rate [ From Monitor] Respiratory 20 20 16 Rate Blood Pressure 128/67 128/67 137/64 O2 Sat by Pulse 99 99 100 Oximetry 06/08/20 06/08/20 06/08/20 00:00 00:10 00:20 Temperature 99.3 F Pulse Rate 94 H 92 H 101 H Pulse Rate [ From Monitor] Respiratory 20 19 21 Rate Blood Pressure 143/65 143/65 140/74 O2 Sat by Pulse 100 100 99 Oximetry 06/08/20 06/08/20 06/08/20 00:30 00:40 00:50 Temperature Pulse Rate 99 H 96 H 96 H Pulse Rate [ From Monitor] Respiratory 22 18 21 Rate Blood Pressure 139/63 139/63 146/59 O2 Sat by Pulse 100 98 99 Oximetry 06/08/20 06/08/20 06/08/20 01:00 01:10 01:20 Temperature Pulse Rate 91 H 96 H 89 Pulse Rate [ 98 H From Monitor] Respiratory 19 22 19 Rate Blood Pressure 144/72 144/72 151/75 O2 Sat by Pulse 98 98 98 Oximetry 06/08/20 06/08/20 06/08/20 01:30 01:40 01:50 Temperature Pulse Rate 88 84 91 H Pulse Rate [ From Monitor] Respiratory 21 21 17 Rate Blood Pressure 150/64 150/64 144/60 O2 Sat by Pulse 98 99 98 Oximetry 06/08/20 06/08/20 06/08/20 02:00 02:10 02:20 Temperature Pulse Rate 92 H 90 88 Pulse Rate [ From Monitor] Respiratory 15 16 17 Rate Blood Pressure 141/66 141/66 149/71 O2 Sat by Pulse 98 98 99 Oximetry 06/08/20 06/08/20 06/08/20 02:30 02:40 02:50 Temperature Pulse Rate 86 92 H 88 Pulse Rate [ From Monitor] Respiratory 18 21 15 Rate Blood Pressure 149/64 149/64 150/69 O2 Sat by Pulse 98 99 99 Oximetry 06/08/20 06/08/20 06/08/20 03:00 03:10 03:20 Temperature Pulse Rate 94 H 98 H 100 H Pulse Rate [ 97 H From Monitor] Respiratory 21 19 19 Rate Blood Pressure 142/71 142/71 148/64 O2 Sat by Pulse 98 99 98 Oximetry 06/08/20 06/08/20 06/08/20 03:30 03:40 03:50 Temperature Pulse Rate 97 H 94 H 99 H Pulse Rate [ From Monitor] Respiratory 17 17 18 Rate Blood Pressure 145/67 145/67 145/73 O2 Sat by Pulse 98 99 99 Oximetry 06/08/20 06/08/20 06/08/20 04:00 04:10 04:20 Temperature 98.7 F Pulse Rate 92 H 99 H 102 H Pulse Rate [ From Monitor] Respiratory 19 19 20 Rate Blood Pressure 134/69 134/69 139/66 O2 Sat by Pulse 98 98 99 Oximetry 06/08/20 06/08/20 06/08/20 04:30 04:40 04:50 Temperature Pulse Rate 95 H 99 H 97 H Pulse Rate [ From Monitor] Respiratory 17 18 23 Rate Blood Pressure 134/67 134/67 138/67 O2 Sat by Pulse 98 99 99 Oximetry 06/08/20 06/08/20 06/08/20 05:00 05:10 05:20 Temperature Pulse Rate 97 H 117 H 107 H Pulse Rate [ From Monitor] Respiratory 17 21 19 Rate Blood Pressure 141/60 141/60 143/71 O2 Sat by Pulse 98 98 100 Oximetry 06/08/20 06/08/20 06/08/20 05:30 05:40 05:50 Temperature Pulse Rate 103 H 108 H 103 H Pulse Rate [ From Monitor] Respiratory 18 19 17 Rate Blood Pressure 147/70 147/70 140/70 O2 Sat by Pulse 99 99 100 Oximetry 06/08/20 06/08/20 06/08/20 06:00 06:10 06:20 Temperature Pulse Rate 106 H 107 H 104 H Pulse Rate [ From Monitor] Respiratory 20 18 17 Rate Blood Pressure 137/72 137/72 134/73 O2 Sat by Pulse 99 100 100 Oximetry 06/08/20 06/08/20 06/08/20 06:30 06:40 06:50 Temperature Pulse Rate 102 H 100 H 101 H Pulse Rate [ From Monitor] Respiratory 23 23 19 Rate Blood Pressure 124/63 124/63 121/61 O2 Sat by Pulse 99 99 100 Oximetry 04/0706/08/20 06/08/20 07:00 07:10 07:20 Temperature Pulse Rate 99 H 99 H 97 H Pulse Rate [ From Monitor] Respiratory 20 19 17 Rate Blood Pressure 118/59 118/59 122/67 O2 Sat by Pulse 99 100 100 Oximetry 06/08/20 06/08/20 06/08/20 07:26 07:30 07:40 Temperature 99.1 F Pulse Rate 95 H 98 H Pulse Rate [ From Monitor] Respiratory 17 18 Rate Blood Pressure 129/61 129/61 O2 Sat by Pulse 100 100 Oximetry 06/08/20 06/08/20 06/08/20 07:50 08:00 08:08 Temperature Pulse Rate 96 H 97 H Pulse Rate [ 98 H From Monitor] Respiratory 18 18 20 Rate Blood Pressure 121/64 123/61 O2 Sat by Pulse 100 99 99 Oximetry 06/08/20 06/08/20 06/08/20 08:10 08:20 08:30 Temperature Pulse Rate 95 H 93 H 92 H Pulse Rate [ From Monitor] Respiratory 17 18 17 Rate Blood Pressure 123/61 121/64 125/61 O2 Sat by Pulse 100 100 100 Oximetry 06/08/20 06/08/20 06/08/20 08:40 08:50 09:00 Temperature Pulse Rate 95 H 98 H 95 H Pulse Rate [ From Monitor] Respiratory 19 18 19 Rate Blood Pressure 121/64 113/61 119/59 O2 Sat by Pulse 100 100 100 Oximetry 06/08/20 06/08/20 09:10 09:20 Temperature Pulse Rate 93 H 91 H Pulse Rate [ From Monitor] Respiratory 20 16 Rate Blood Pressure 119/59 114/60 O2 Sat by Pulse 100 100 Oximetry - Lab 06/08/20 05:15 06/08/20 05:15 Most recent lab results ABG pH 7.329 pH Units (7.350-7.450) L 06/06/20 11:18 ABG pCO2 27.8 mm Hg 06/06/20 11:18 ABG pO2 258.1 mm Hg (80.0-90.0) H 06/06/20 11:18 ABG HCO3 14.3 mmol/L (20.0-26.0) L 06/06/20 11:18 ABG O2 Saturation 99.4 % (95.0-99.0) H 06/06/20 11:18 Calcium 7.2 mg/dL (8.4-10.2) L 06/08/20 05:15 Urine Creatinine 57.0 mg/dL (0.1-20.0) H 06/06/20 21:05 Urine Sodium 85 mmol/L 06/06/20 21:05 Medications & Allergies - Medications Allergies/Adverse Reactions: Allergies No Known Allergies Allergy (Verified 06/06/20 15:21) Home Medications: Home Medications Medication Instructions Recorded Confirmed Last Taken Type Amlodipine Besylate [Norvasc] 5 mg PO QDAY 06/06/20 06/06/20 Unknown History Bisacodyl [Women's Gentle Laxative] 5 mg PO BID 06/06/20 06/06/20 Unknown History Calcium Carb/Magnesium Hydrox 500 mg PO QDAY 06/06/20 06/06/20 Unknown History [Antacid 1000-200 mg Tab Chew] Cholecalciferol (Vitamin D3) 2,000 unit PO QDAY 06/06/20 06/06/20 Unknown History [Vitamin D3 2,000 UNIT CAP] Dextrose/Dextrin/Maltose 24 gm PO ONCE 06/06/20 06/06/20 Unknown History [Insta-Glucose Gel] Diclofenac 1% [Diclofenac 1% 100 gm TP QDAY 06/06/20 06/06/20 Unknown History topical gel] Dicyclomine [Bentyl] 10 mg PO TID 06/06/20 06/06/20 Unknown History Docusate Sodium [Colace] 100 mg PO BID PRN 06/06/20 06/06/20 Unknown History Furosemide [Lasix] 40 mg PO QDAY 06/06/20 06/06/20 Unknown History Insulin Lispro [Insulin Lispro 10 unit SQ TID 06/06/20 06/06/20 Unknown History Kwikpen U-100] Magnesium Citrate [Citroma] 296 ml PO QDAY 06/06/20 06/06/20 Unknown History Melatonin [Melatonin 3MG TAB] 6 mg PO QHS 06/06/20 06/06/20 Unknown History Oxycodone HCl/Acetaminophen 1 each PO QDAY 06/06/20 06/06/20 Unknown History [Oxycodone-Acetaminophen 10-325] Pantoprazole [Protonix] 40 mg PO QDAY 06/06/20 06/06/20 Unknown History Pioglitazone HCl [Actos] 30 mg PO QDAY 06/06/20 06/06/20 Unknown History Polyethylene Glycol 3350 [Gavilax] 10 gm PO QDAY 06/06/20 06/06/20 Unknown History Pravastatin Sodium [Pravastatin] 10 mg PO QHS 06/06/20 06/06/20 Unknown History Tamsulosin [Flomax] 0.4 mg PO QDAY 06/06/20 06/06/20 Unknown History allopurinoL [Zyloprim] 100 mg PO QDAY 06/06/20 06/06/20 Unknown History lisinopriL [Lisinopril] 20 mg PO QDAY 06/06/20 06/06/20 Unknown History Active Medications: Generic Name Dose Route Start Last Admin Trade Name Freq PRN Reason Stop Dose Admin Acetaminophen 650 mg 06/06/20 15:00 Acetaminophen 325 Mg Tab PO Q6H PRN Pain, Mild (1-3) Albuterol 2.5 mg 06/06/20 15:00 Albuterol 2.5 Mg/3 Ml Nebu IH Q3HRT PRN Shortness Of Breath Allopurinol 100 mg 06/07/20 10:00 06/07/20 10:09 Allopurinol 100 Mg Tab PO Not Given QDAY [facility] Calcium Carbonate/Glycine 500 mg 06/07/20 10:00 06/07/20 10:09 Calcium Carbonate 500 Mg Tab Chew PO Not Given QDAY [facility] Cholecalciferol 2,000 unit 06/07/20 10:00 06/07/20 10:09 Cholecalciferol (Vit D3) 1000 Unit (25 Mcg) Tab PO Not Given QDAY [facility] Diclofenac Sodium 20 applic 06/07/20 10:00 06/07/20 08:29 Diclofenac Sodium 1% Topical Gel 100 Gm TP Not Given QDAY [facility] Dicyclomine HCl 10 mg 06/06/20 20:00 06/08/20 08:45 Dicyclomine 10 Mg Cap PO Not Given TID [facility] Docusate Sodium 100 mg 06/06/20 15:57 Docusate Sodium 100 Mg Cap PO BID PRN Constipation Heparin Sodium (Porcine) 5,000 unit 06/07/20 22:00 06/07/20 22:07 Heparin 5,000 Unit/1 Ml Vial SUB-Q 5,000 unit Q12HR [facility] Administration Hydromorphone HCl 0.25 mg 06/06/20 15:00 Hydromorphone 1 Mg/1 Ml Inj IV Q4H PRN Pain, Moderate (4-6) Dopamine HCl/Dextrose 800 mg in 250 mls @ 2.885 mls/hr 06/06/20 12:00 06/07/20 14:45 Intropin Drip 800 Mg/D5w 250 Ml IV 06/10/20 02:39 6 mcg/kg/min TITR ONE 8.655 mls/hr Administration Protocol 2 MCG/KG/MIN NORepinephrine/NS 8 MG-250 ML 8 mg in 250 mls @ 3.75 mls/hr 06/06/20 20:00 06/08/20 08:50 Norepinephrine/Ns 8 Mg-250 Ml (Double Conc) IV 6 mcg/min TITRATE [facility]LE[facility] 11.25 mls/hr Titration Protocol 2 MCG/MIN Vasopressin 20 unit/ Sodium 101 mls @ 9.09 mls/hr 06/07/20 03:00 06/08/20 01:06 Chloride IV 0.03 units/min TITR YELENA 9.09 mls/hr Administration Protocol 0.03 UNITS/MIN Cefepime HCl 2 gm in 100 mls @ 200 mls/hr 06/07/20 22:00 06/07/20 22:07 Cefepime/Ns 2 Gm/100 Ml IV 200 mls/hr Q24HR@2200 [facility] Administration Lactated Ringer's 1,000 mls @ 999 mls/hr 06/07/20 12:15 06/07/20 22:09 Lactated Ringers IV 06/08/20 13:16 999 mls/hr BOLUS [facility] Administration Sodium Bicarbonate 100 meq/ 1,100 mls @ 75 mls/hr 06/07/20 17:00 06/07/20 17:51 Sterile Water IV 75 mls/hr DIRECT [facility] Administration Lactated Ringer's 1,000 ml 06/07/20 13:15 06/08/20 00:25 Lactated Ringers 1000 Ml Iv Soln IV 06/09/20 13:16 1,000 ml BOLUS [facility] Administration Magnesium Citrate 300 ml 06/06/20 16:20 Magnesium Citrate 300 Ml Oral Liqd PO QDAY PRN Constipation Pantoprazole Sodium 40 mg 06/07/20 10:00 06/07/20 10:08 Pantoprazole 40 Mg Tab PO Not Given QDAY [facility] Polyethylene Glycol 17 gm 06/07/20 10:00 06/07/20 10:08 Polyethylene Glycol 3350 17 Gm Powder PO Not Given QDAY [facility] Pravastatin Sodium 10 mg 06/06/20 22:00 06/08/20 04:48 Pravastatin 20 Mg Tab PO Not Given QHS [facility] Sodium Chloride 10 ml 06/06/20 15:00 06/07/20 22:09 Sodium Chloride 0.9% 10 Ml Flush Syringe IV 10 ml BID YELENA Administration Sodium Chloride 10 ml 06/06/20 15:00 Sodium Chloride 0.9% 10 Ml Flush Syringe IV PRN PRN LINE FLUSH
--- NOTE | 2020-06-08 09:58 | Progress Note ---
Assessment and Plan Cultures: Blood culture 06/06/2020 gram-positive cocci in pairs 1 out of 4 Assessment: 80 years old male with history of dementia, CVA, debility, diabetes mellitus, secondary to few hours of unresponsiveness at breakfast at his assisted living facility: #Sepsis with septic shock: present on admission with fever, tachycardia, hypotension, elevated lactate; source UTI +/- acute diarrhea +/-bacteremia #Gram-positive cocci bacteremia: 1 out of 4 likely renal possibly Strep or Enterococcus. Source likely UTI. #Acute hypoxemic respiratory failure: now on NC O2. CXR clear, should r/o COVID vs volume overload #UTI: with hematuria #Diarrhea: ?colitis #Acute encephalopathy: due to sepsis> CT no acute changes #ISAAC: ? from sepsis, improving Recommendations: -Continue cefepime renally adjusted -Continue IV vancomycin renally adjusted -F/u blood culture, urine culture -Send stool for C diff pending -Obtain SARS Cov2 PCR pending -CT abdomen/pelvis when stable Close monitoring Will follow. Nona Childs MD Infectious Diseases [facility] [phone] O [phone] Subjective Date of service: 06/08/20 Principal diagnosis: shock Interval history: Remains critically ill on 3 pressors, vasopressin, Levophed and dopamine as well as bicarb drip. Patient is alert, follows simple commands. Objective - Exam Narrative Exam: General appearance: Alert in NAD on NC O2 Eyes: anicteric sclerae, moist conjunctivae; no lid-lag; PERRLA HENT: Normocephalic, Atraumatic; normal external ears, nares open, oropharynx limited Neck: supple, tracheal midline, no JVD Lungs: Bibasilar crackles CV: RRR no murmur Abdomen: Soft, nontender Extremities: no edema, no cyanosis Skin: No rash. Psych: no agitated Neuro: Alert, follows simple commands Right femoral TLC Rectal tube in place with diarrhea Hair catheter in place - Constitutional Vitals: Vital Signs Temp Pulse Resp BP Pulse Ox 99.1 F 91 H 16 114/60 100 06/08/20 07:26 06/08/20 09:20 06/08/20 09:20 06/08/20 09:20 06/08/20 09:20 Temperature -Last 24 Hours Temperature 99.1 F Temperature 98.7 F Temperature 99.3 F Temperature 99.3 F - Labs CBC & Chem 7: 06/08/20 05:15 06/08/20 05:15 Labs: Abnormal lab results 06/07/20 06/08/20 06/08/20 Range/Units 10:19 05:15 05:15 RBC (3.65-5.03) M/mm3 Hgb (11.8-15.2) gm/dl Hct (35.5-45.6) % MCV (84-94) fl MCH (28-32) pg Chloride 110.0 H (98-107) mmol/L Carbon Dioxide 20 L (22-30) mmol/L BUN 93 H (9-20) mg/dL Creatinine 3.2 H (0.8-1.3) mg/dL Glucose 165 H (75-100) mg/dL Lactic Acid 2.90 H* (0.7-2.0) mmol/L Calcium 7.2 L (8.4-10.2) mg/dL PTH Intact 271.9 H (15-65) pg/mL 06/08/20 Range/Units 05:15 RBC 2.71 L (3.65-5.03) M/mm3 Hgb 8.8 L (11.8-15.2) gm/dl Hct 26.7 L D (35.5-45.6) % MCV 99 H (84-94) fl MCH 33 H (28-32) pg Chloride (98-107) mmol/L Carbon Dioxide (22-30) mmol/L BUN (9-20) mg/dL Creatinine (0.8-1.3) mg/dL Glucose (75-100) mg/dL Lactic Acid (0.7-2.0) mmol/L Calcium (8.4-10.2) mg/dL PTH Intact (15-65) pg/mL
[2020-06-08] MEDS ORDERED: LACTATED RINGERS 1,000 ML IV SCH (10:45)
[2020-06-08] MEDS: CALCIUM CARBONATE 500 MG TAB CHEW PO SCH (10:56)
[2020-06-08] MEDS: DICLOFENAC SODIUM 1% TOPICAL GEL 100 GM TP SCH (10:56)
[2020-06-08] MEDS: FAMOTIDINE 20 MG/2 ML INJ IV SCH (10:56)
[2020-06-08] MEDS: allopurinoL 100 MG TAB PO SCH (10:56)
[2020-06-08] MEDS: CHOLECALCIFEROL (VIT D3) 1000 UNIT (25 mcg) TAB PO SCH (10:56)
[2020-06-08] MEDS: HEPARIN 5,000 UNIT/1 ML VIAL SUB-Q SCH ×2 (10:57→21:15)
--- NOTE | 2020-06-08 10:58 | Consultation ---
History of Present Illness - Reason for Consult Consult date: 06/08/20 Sepsis with shock - History of Present Illness 80 y/o male, pleasantly confused admitted yesterday with sepsis with shock. Was on Levo at 30 at one point. Now on 3 pressors but overall requirement is down. Patient comes from an assisted living facility with long past medical history. Patient was found unresponsive at facility and transported to [facility] ED on yesterday initially as code stroke. But was found to be tachycardic and hypotensive. Past History Past Medical History: diabetes, other (See HPI) Past Surgical History: No surgical history, Other (Reviewed) Social history: Family history: diabetes, hypertension Medications and Allergies Allergies Allergy/AdvReac Type Severity Reaction Status Date / Time No Known Allergies Allergy Verified 06/06/20 15:21 Home Medications Medication Instructions Recorded Confirmed Last Taken Type Amlodipine Besylate [Norvasc] 5 mg PO QDAY 06/06/20 06/06/20 Unknown History Bisacodyl [Women's Gentle Laxative] 5 mg PO BID 06/06/20 06/06/20 Unknown History Calcium Carb/Magnesium Hydrox 500 mg PO QDAY 06/06/20 06/06/20 Unknown History [Antacid 1000-200 mg Tab Chew] Cholecalciferol (Vitamin D3) 2,000 unit PO QDAY 06/06/20 06/06/20 Unknown History [Vitamin D3 2,000 UNIT CAP] Dextrose/Dextrin/Maltose 24 gm PO ONCE 06/06/20 06/06/20 Unknown History [Insta-Glucose Gel] Diclofenac 1% [Diclofenac 1% 100 gm TP QDAY 06/06/20 06/06/20 Unknown History topical gel] Dicyclomine [Bentyl] 10 mg PO TID 06/06/20 06/06/20 Unknown History Docusate Sodium [Colace] 100 mg PO BID PRN 06/06/20 06/06/20 Unknown History Furosemide [Lasix] 40 mg PO QDAY 06/06/20 06/06/20 Unknown History Insulin Lispro [Insulin Lispro 10 unit SQ TID 06/06/20 06/06/20 Unknown History Kwikpen U-100] Magnesium Citrate [Citroma] 296 ml PO QDAY 06/06/20 06/06/20 Unknown History Melatonin [Melatonin 3MG TAB] 6 mg PO QHS 06/06/20 06/06/20 Unknown History Oxycodone HCl/Acetaminophen 1 each PO QDAY 06/06/20 06/06/20 Unknown History [Oxycodone-Acetaminophen 10-325] Pantoprazole [Protonix] 40 mg PO QDAY 06/06/20 06/06/20 Unknown History Pioglitazone HCl [Actos] 30 mg PO QDAY 06/06/20 06/06/20 Unknown History Polyethylene Glycol 3350 [Gavilax] 10 gm PO QDAY 06/06/20 06/06/20 Unknown History Pravastatin Sodium [Pravastatin] 10 mg PO QHS 06/06/20 06/06/20 Unknown History Tamsulosin [Flomax] 0.4 mg PO QDAY 06/06/20 06/06/20 Unknown History allopurinoL [Zyloprim] 100 mg PO QDAY 06/06/20 06/06/20 Unknown History lisinopriL [Lisinopril] 20 mg PO QDAY 06/06/20 06/06/20 Unknown History Active Meds: Active Medications Acetaminophen (Acetaminophen 325 Mg Tab) 650 mg PO Q6H PRN PRN Reason: Pain, Mild (1-3) Albuterol (Albuterol 2.5 Mg/3 Ml Nebu) 2.5 mg IH Q3HRT PRN PRN Reason: Shortness Of Breath Allopurinol (Allopurinol 100 Mg Tab) 100 mg PO QDAY [facility] Last Admin: 06/07/20 10:09 Dose: Not Given Documented by: Calcium Carbonate/Glycine (Calcium Carbonate 500 Mg Tab Chew) 500 mg PO QDAY [facility] Last Admin: 06/07/20 10:09 Dose: Not Given Documented by: Cholecalciferol (Cholecalciferol (Vit D3) 1000 Unit (25 Mcg) Tab) 2,000 unit PO QDAY [facility] Last Admin: 06/07/20 10:09 Dose: Not Given Documented by: Diclofenac Sodium (Diclofenac Sodium 1% Topical Gel 100 Gm) 20 applic TP QDAY [facility] Last Admin: 06/07/20 08:29 Dose: Not Given Documented by: Dicyclomine HCl (Dicyclomine 10 Mg Cap) 10 mg PO TID [facility] Last Admin: 06/08/20 08:45 Dose: Not Given Documented by: Docusate Sodium (Docusate Sodium 100 Mg Cap) 100 mg PO BID PRN PRN Reason: Constipation Famotidine (Famotidine 20 Mg/2 Ml Inj) 20 mg IV QDAY YELE[facility] Heparin Sodium (Porcine) (Heparin 5,000 Unit/1 Ml Vial) 5,000 unit SUB-Q Q12HR [facility] Last Admin: 06/07/20 22:07 Dose: 5,000 unit Documented by: Hydromorphone HCl (Hydromorphone 1 Mg/1 Ml Inj) 0.25 mg IV Q4H PRN PRN Reason: Pain, Moderate (4-6) Dopamine HCl/Dextrose (Intropin Drip 800 Mg/D5w 250 Ml) 800 mg in 250 mls @ 2.885 mls/hr IV TITR ONE; Protocol Stop: 06/10/20 02:39 Last Admin: 06/07/20 14:45 Dose: 6 mcg/kg/min, 8.655 mls/hr Documented by: NORepinephrine/NS 8 MG-250 ML (Norepinephrine/Ns 8 Mg-250 Ml (Double Conc)) 8 mg in 250 mls @ 3.75 mls/hr IV TITRATE YELENA; Protocol Last Titration: 06/08/20 08:50 Dose: 6 mcg/min, 11.25 mls/hr Documented by: Vasopressin 20 unit/ Sodium (Chloride) 101 mls @ 9.09 mls/hr IV TITR YELENA; Protocol Last Admin: 06/08/20 01:06 Dose: 0.03 units/min, 9.09 mls/hr Documented by: Cefepime HCl (Cefepime/Ns 2 Gm/100 Ml) 2 gm in 100 mls @ 200 mls/hr IV Q24HR@2200 [facility]LE[facility] Last Admin: 06/07/20 22:07 Dose: 200 mls/hr Documented by: Lactated Ringer's (Lactated Ringers) 1,000 mls @ 999 mls/hr IV BOLUS YELENA Stop: 06/08/20 13:16 Last Admin: 06/07/20 22:09 Dose: 999 mls/hr Documented by: Sodium Bicarbonate 100 meq/ (Sterile Water) 1,100 mls @ 75 mls/hr IV DIRECT [facility]LE[facility] Last Admin: 06/07/20 17:51 Dose: 75 mls/hr Documented by: Lactated Ringer's (Lactated Ringers) 1,000 mls @ 999 mls/hr IV BOLUS YELENA Stop: 06/10/20 11:46 Lactated Ringer's (Lactated Ringers 1000 Ml Iv Soln) 1,000 ml IV BOLUS [facility] Stop: 06/09/20 13:16 Last Admin: 06/08/20 00:25 Dose: 1,000 ml Documented by: Magnesium Citrate (Magnesium Citrate 300 Ml Oral Liqd) 300 ml PO QDAY PRN PRN Reason: Constipation Pravastatin Sodium (Pravastatin 20 Mg Tab) 10 mg PO QHS [facility] Last Admin: 06/08/20 04:48 Dose: Not Given Documented by: Sodium Chloride (Sodium Chloride 0.9% 10 Ml Flush Syringe) 10 ml IV BID [facility] Last Admin: 06/07/20 22:09 Dose: 10 ml Documented by: Sodium Chloride (Sodium Chloride 0.9% 10 Ml Flush Syringe) 10 ml IV PRN PRN PRN Reason: LINE FLUSH Review of Systems All systems: negative Exam - Constitutional Vitals: Temp Pulse Resp BP Pulse Ox 99.1 F 103 H 17 121/66 99 06/08/20 07:26 06/08/20 10:30 06/08/20 10:30 06/08/20 10:30 06/08/20 10:30 General appearance: Present: no acute distress, well-nourished - EENT Eyes: Present: PERRL, EOM intact ENT: hearing intact - Neck Neck: Present: supple, normal ROM Results - Labs CBC & Chem 7: 06/09/20 04:30 06/09/20 04:30 Labs: Abnormal lab results 06/07/20 06/08/20 06/08/20 Range/Units 10:19 05:15 05:15 RBC (3.65-5.03) M/mm3 Hgb (11.8-15.2) gm/dl Hct (35.5-45.6) % MCV (84-94) fl MCH (28-32) pg Chloride 110.0 H (98-107) mmol/L Carbon Dioxide 20 L (22-30) mmol/L BUN 93 H (9-20) mg/dL Creatinine 3.2 H (0.8-1.3) mg/dL Glucose 165 H (75-100) mg/dL Lactic Acid 2.90 H* (0.7-2.0) mmol/L Calcium 7.2 L (8.4-10.2) mg/dL PTH Intact 271.9 H (15-65) pg/mL 06/08/20 Range/Units 05:15 RBC 2.71 L (3.65-5.03) M/mm3 Hgb 8.8 L (11.8-15.2) gm/dl Hct 26.7 L D (35.5-45.6) % MCV 99 H (84-94) fl MCH 33 H (28-32) pg Chloride (98-107) mmol/L Carbon Dioxide (22-30) mmol/L BUN (9-20) mg/dL Creatinine (0.8-1.3) mg/dL Glucose (75-100) mg/dL Lactic Acid (0.7-2.0) mmol/L Calcium (8.4-10.2) mg/dL PTH Intact (15-65) pg/mL - Imaging and Cardiology Chest x-ray: image reviewed Assessment and Plan 80 y/o male with sepsis with shock and positive blood cultures along with CHF with severe global hypokinesis. Sepsis-exact etiology is unknown, giving volume now but mindful of CHF status. Only on 3 liters NC. Currently tachycardic. Appears to be afib now. Currently on abx and follow up cultures. CV-tachycardia, most likely sepsis related but with low EF,could be intrinsic. Ordered Stat EKG to eval for afib. Given hypotension will need something like amio for rate control vs cardioversion. Pulm- stable on 3 liters. GI-NPO for right now Neuro-dementia but stable. Guarded prognosis. CCT 31 minutes
[2020-06-08] MEDS: SODIUM BICARBONATE 100 MEQ in WATER FOR INJECTION (PF) 1,000 ML IV SCH (11:00)
[2020-06-08] MEDS ORDERED: AMIODARONE 150 MG in DEXTROSE 5% IN WATER 97 ML IV ONE (11:05)
[2020-06-08] MEDS: AMIODARONE 900 MG in DEXTROSE 5% IN WATER 482 ML IV SCH (11:51)
--- NOTE | 2020-06-08 12:09 | Electrocardiograph Report ---
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
--- NOTE | 2020-06-08 12:15 | Electrocardiograph Report ---
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
--- NOTE | 2020-06-08 14:02 | Consultation ---
History of Present Illness Consult date: 06/08/20 Requesting physician: AICHA LA Consult reason: arrhythmia History of present illness: The pt is a 80 year old male NHR with a past medical history of dementia, CVA, HTN, DM. He is previously unknown to our practice. He has baseline dementia and is confused on evaluation and thus HPI is obtained per the chart. Pt presented for evaluation of unresponsiveness noted while at breakfast at his assisted living facility. Since admission, he has been diagnosed with sepsis, lactic acidosis, UTI, diarrhea with C Diff studies pending, anemia, renal failure with current BUN/Cr 93/3.2, elevated LFTs, hypotension requiring multiple vasopressors. CXR with NAF, COVID-19 testing is pending. Pt was admitted in NSR with LBBB noted on ECG. Earlier today, he was noted to develop AFib with RVR for which cardiology has been consulted. Pt was initiated on IV amio this AM and has since converted back to NSR with HR 80s. tte done 06/06/2020 showed EF 15-20%, LV borderline dilated, no significant valvular abnormalities. Per [place] records, pt saw [place] [facility] in 1998 and underwent LHC which did not show any significant findings, although no cath report available for review at this time. Past History Past Medical History: diabetes, other (See HPI) Past Surgical History: No surgical history, Other (Reviewed) Social history: Family history: diabetes, hypertension Medications and Allergies Allergies Allergy/AdvReac Type Severity Reaction Status Date / Time No Known Allergies Allergy Verified 06/06/20 15:21 Home Medications Medication Instructions Recorded Confirmed Last Taken Type Amlodipine Besylate [Norvasc] 5 mg PO QDAY 06/06/20 06/06/20 Unknown History Bisacodyl [Women's Gentle Laxative] 5 mg PO BID 06/06/20 06/06/20 Unknown History Calcium Carb/Magnesium Hydrox 500 mg PO QDAY 06/06/20 06/06/20 Unknown History [Antacid 1000-200 mg Tab Chew] Cholecalciferol (Vitamin D3) 2,000 unit PO QDAY 06/06/20 06/06/20 Unknown History [Vitamin D3 2,000 UNIT CAP] Dextrose/Dextrin/Maltose 24 gm PO ONCE 06/06/20 06/06/20 Unknown History [Insta-Glucose Gel] Diclofenac 1% [Diclofenac 1% 100 gm TP QDAY 06/06/20 06/06/20 Unknown History topical gel] Dicyclomine [Bentyl] 10 mg PO TID 06/06/20 06/06/20 Unknown History Docusate Sodium [Colace] 100 mg PO BID PRN 06/06/20 06/06/20 Unknown History Furosemide [Lasix] 40 mg PO QDAY 06/06/20 06/06/20 Unknown History Insulin Lispro [Insulin Lispro 10 unit SQ TID 06/06/20 06/06/20 Unknown History Kwikpen U-100] Magnesium Citrate [Citroma] 296 ml PO QDAY 06/06/20 06/06/20 Unknown History Melatonin [Melatonin 3MG TAB] 6 mg PO QHS 06/06/20 06/06/20 Unknown History Oxycodone HCl/Acetaminophen 1 each PO QDAY 06/06/20 06/06/20 Unknown History [Oxycodone-Acetaminophen 10-325] Pantoprazole [Protonix] 40 mg PO QDAY 06/06/20 06/06/20 Unknown History Pioglitazone HCl [Actos] 30 mg PO QDAY 06/06/20 06/06/20 Unknown History Polyethylene Glycol 3350 [Gavilax] 10 gm PO QDAY 06/06/20 06/06/20 Unknown Hi story Pravastatin Sodium [Pravastatin] 10 mg PO QHS 06/06/20 06/06/20 Unknown History Tamsulosin [Flomax] 0.4 mg PO QDAY 06/06/20 06/06/20 Unknown History allopurinoL [Zyloprim] 100 mg PO QDAY 06/06/20 06/06/20 Unknown History lisinopriL [Lisinopril] 20 mg PO QDAY 06/06/20 06/06/20 Unknown History Active Meds: Active Medications Acetaminophen (Acetaminophen 325 Mg Tab) 650 mg PO Q6H PRN PRN Reason: Pain, Mild (1-3) Albuterol (Albuterol 2.5 Mg/3 Ml Nebu) 2.5 mg IH Q3HRT PRN PRN Reason: Shortness Of Breath Allopurinol (Allopurinol 100 Mg Tab) 100 mg PO QDAY YELENA Last Admin: 06/08/20 10:56 Dose: Not Given Documented by: Calcium Carbonate/Glycine (Calcium Carbonate 500 Mg Tab Chew) 500 mg PO QDAY [facility] Last Admin: 06/08/20 10:56 Dose: Not Given Documented by: Cholecalciferol (Cholecalciferol (Vit D3) 1000 Unit (25 Mcg) Tab) 2,000 unit PO QDAY [facility] Last Admin: 06/08/20 10:56 Dose: Not Given Documented by: Diclofenac Sodium (Diclofenac Sodium 1% Topical Gel 100 Gm) 20 applic TP QDAY [facility] Last Admin: 06/08/20 10:56 Dose: 20 applic Documented by: Dicyclomine HCl (Dicyclomine 10 Mg Cap) 10 mg PO TID [facility] Last Admin: 06/08/20 13:44 Dose: Not Given Documented by: Docusate Sodium (Docusate Sodium 100 Mg Cap) 100 mg PO BID PRN PRN Reason: Constipation Famotidine (Famotidine 20 Mg/2 Ml Inj) 20 mg IV QDAY [facility] Last Admin: 06/08/20 10:56 Dose: 20 mg Documented by: Heparin Sodium (Porcine) (Heparin 5,000 Unit/1 Ml Vial) 5,000 unit SUB-Q Q12HR [facility] Last Admin: 06/08/20 10:57 Dose: 5,000 unit Documented by: Hydromorphone HCl (Hydromorphone 1 Mg/1 Ml Inj) 0.25 mg IV Q4H PRN PRN Reason: Pain, Moderate (4-6) Dopamine HCl/Dextrose (Intropin Drip 800 Mg/D5w 250 Ml) 800 mg in 250 mls @ 2.885 mls/hr IV TITR ONE; Protocol Stop: 06/10/20 02:39 Last Titration: 06/08/20 11:51 Dose: 4 mcg/kg/min, 5.77 mls/hr Documented by: NORepinephrine/NS 8 MG-250 ML (Norepinephrine/Ns 8 Mg-250 Ml (Double Conc)) 8 mg in 250 mls @ 3.75 mls/hr IV TITRATE [facility]; Protocol Last Titration: 06/08/20 08:50 Dose: 6 mcg/min, 11.25 mls/hr Documented by: Vasopressin 20 unit/ Sodium (Chloride) 101 mls @ 9.09 mls/hr IV TITR [facility]; Protocol Last Admin: 06/08/20 11:32 Dose: 0.03 units/min, 9.09 mls/hr Documented by: Cefepime HCl (Cefepime/Ns 2 Gm/100 Ml) 2 gm in 100 mls @ 200 mls/hr IV Q24HR@2200 [facility] Last Admin: 06/07/20 22:07 Dose: 200 mls/hr Documented by: Sodium Bicarbonate 100 meq/ (Sterile Water) 1,100 mls @ 75 mls/hr IV DIRECT YELE[facility] Last Admin: 06/08/20 11:00 Dose: 75 mls/hr Documented by: Lactated Ringer's (Lactated Ringers) 1,000 mls @ 999 mls/hr IV BOLUS [facility] Stop: 06/10/20 11:46 Last Admin: 06/08/20 11:34 Dose: 999 mls/hr Documented by: Amiodarone HCl 900 mg/ (Dextrose) 500 mls @ 33.333 mls/hr IV DIRECT YELENA; Protocol Last Admin: 06/08/20 11:51 Dose: 1 mg/min, 33.333 mls/hr Documented by: Lactated Ringer's (Lactated Ringers 1000 Ml Iv Soln) 1,000 ml IV BOLUS [facility] Stop: 06/09/20 13:16 Last Admin: 06/08/20 00:25 Dose: 1,000 ml Documented by: Magnesium Citrate (Magnesium Citrate 300 Ml Oral Liqd) 300 ml PO QDAY PRN PRN Reason: Constipation Pravastatin Sodium (Pravastatin 20 Mg Tab) 10 mg PO QHS [facility] Last Admin: 06/08/20 04:48 Dose: Not Given Documented by: Sodium Chloride (Sodium Chloride 0.9% 10 Ml Flush Syringe) 10 ml IV BID [facility] Last Admin: 06/08/20 10:56 Dose: 10 ml Documented by: Sodium Chloride (Sodium Chloride 0.9% 10 Ml Flush Syringe) 10 ml IV PRN PRN PRN Reason: LINE FLUSH Review of Systems ROS unobtainable: due to mental status Physical Examination Vital Signs Temp Pulse Resp BP Pulse Ox 97.7 F 87 27 H 134/106 94 06/06/20 10:10 06/06/20 10:10 06/06/20 10:10 06/06/20 10:10 06/06/20 10:10 General appearance: no acute distress HEENT: Positive: PERRL, Normocephaly, Mucus Membranes Moist Neck: Positive: neck supple, trachea midline Cardiac: Positive: Reg Rate and Rhythm, S1/S2 Lungs: Positive: Decreased Breath Sounds Neuro: Positive: Other (confused) Abdomen: Negative: Tender Skin: Negative: Rash Musculoskeletal: No Pain Extremities: Absent: edema Results 06/08/20 05:15 06/08/20 05:15 CBC 06/08/20 Range/Units 05:15 WBC 7.3 (4.5-11.0) K/mm3 RBC 2.71 L (3.65-5.03) M/mm3 Hgb 8.8 L (11.8-15.2) gm/dl Hct 26.7 L D (35.5-45.6) % Plt Count 170 (140-440) K/mm3 Comprehensive Metabolic Panel 06/08/20 Range/Units 05:15 Sodium 142 (137-145) mmol/L Potassium 4.9 (3.6-5.0) mmol/L Chloride 110.0 H (98-107) mmol/L Carbon Dioxide 20 L (22-30) mmol/L BUN 93 H (9-20) mg/dL Creatinine 3.2 H (0.8-1.3) mg/dL Glucose 165 H (75-100) mg/dL Calcium 7.2 L (8.4-10.2) mg/dL - Imaging and Cardiology Echo: report reviewed (06/06/2020 showed EF 15-20%, LV borderline dilated, no significant valvular abnormalities. ) Cardiac cath: report reviewed (1998 - no significant findings) EKG: report reviewed, image reviewed EKG interpretations - Telemetry EKG Rhythm: Sinus Rhythm - EKG Sinus rhythms and dysrhythmias: sinus rhythm AV and intraventricular conduction: left bundle branch block Assessment and Plan Pt was admitted in NSR with LBBB (unknown chronicity) noted on ECG, no prior ECGs available for comparison. Earlier today, he was noted to develop AFib with RVR for which cardiology has been consulted. Pt was initiated on IV amio this AM and has since converted back to NSR with HR 80s. tte done 06/06/2020 showed EF 15-20%, LV borderline dilated, no significant valvular abnormalities. No current clinical evidence of acutely decompensated HF. Per [place] records, pt saw [place] [facility] in 1998 and underwent LHC which did not show any significant findings, although no cath report available for review at this time. Agree with IV amio. No systemic AC at this time in setting of anemia with do wnwards trending Hgb & Hct. F/u CBC in AM. No BB in setting of hypotension. No ACEI/ARB in setting of renal failure. F/u BMP in AM. Cont supportive measures. Wean vasopressors as tolerated. Will follow. The patient has been seen in conjunction with Dr. Rosa who agrees with the assessment and plan of care. - Patient Problems (1) Altered mental status Current Visit: Yes Status: Acute (2) Sepsis Current Visit: Yes Status: Acute (3) Septic shock Current Visit: Yes Status: Acute (4) Urinary tract infection Current Visit: Yes Status: Acute Qualifiers: Encounter type: initial encounter (5) Renal failure Current Visit: Yes Status: Acute (6) Diarrhea Current Visit: Yes Status: Acute (7) Anemia Current Visit: Yes Status: Acute (8) Cardiomyopathy Current Visit: Yes Status: Chronic (9) LBBB (left bundle branch block) Current Visit: Yes Status: Acute (10) Transient atrial fibrillation Current Visit: Yes Status: Acute Plan to address problem: --> SR s/p IV amio (11) Dementia Current Visit: Yes Status: Chronic (12) History of CVA (cerebrovascular accident) Current Visit: Yes Status: Chronic (13) Diabetes Current Visit: Yes Status: Chronic
--- NOTE | 2020-06-08 14:03 | Progress Note ---
Assessment and Plan Assessment and plan: -CCM, infectious disease, nephrology, cardiology consulted, appreciate recommendations -Vasopressor support with dopamine, Levophed, vasopressin -S/p 4.3 L normal saline bolus, 6L LR bolus -Bicarbonate drip -Antibiotic therapy per infectious disease -Blood cultures x4, Coag negative staph coccus 1/4 bottles -Urinalysis shows urinary tract infection -C. difficile pending -Droplet/contact isolation, COVID-19 PCR pending -Trend BMP, CBC -S/p amiodarone bolus per [facility], on amidorone gtt GI/DVT prophylaxis: Protonix, heparin subcu, SCDs to bilateral lower extremities while in bed Disposition: ICU History Interval history: This is a 80-year-old male who is a resident of assisted living facility with vascular dementia, cerebral sclerosis, debility, diabetes mellitus who presents to the emergency department on 06/06 with complaints of lethargy and diminished cognition as per daughter he developed an episode of unresponsiveness while at breakfast at at his assisted living facility. Patient was found to have a urinary tract infection complicated by sepsis and septic shock, acute kidney injury, toxic metabolic encephalopathy as well as metabolic acidosis. Patient was hypotensive with systolic blood pressures in the 50s and was initiated on vasopressor support in the emergency department. Patient was admitted to the hospital service with consults to nephrology and [facility]. Septic Shock Metabolic encephalopathy Coag negative Staphylococcus 1/4 bottles Urinary tract infection Acute hypoxic respiratory failure Acute kidney injury Metabolic acidosis Diarrhea Dementia Hypertension Anemia 06/07: Patient remains on dopamine, vasopressin and Levophed. Nephrology has started the patient on sodium bicarbonate drip for metabolic acidosis. Infectious disease initiated vancomycin in addition to the cefepime and ordered a C. difficile. 06/08: Patient has gram-positive cocci bacteremia in 1/4 bottles which grew to be coag negative staph coccus and he has repeat blood cultures in progress. Urine culture has no growth to date and he is on IV vancomycin and cefepime. Yesterday we ordered a C. difficile PCR which is pending. Echocardiogram showed reduced ejection fraction of 25 to 30% and he has been fluid resuscitated. Patient had a moment of tachycardia into the 130s and a stat EKG was obtained. Patient was given amiodarone bolus by [facility] and cardiology was consulted. Patient is hyperchloremic today however his metabolic acidosis and BUN/creatinine is slightly improved to 93/3.2 from 100/3.6 and his repeat lactic acid is 1.5. At the time my examination patient was on Levophed at 6, vasopressin 0.03 and dopamine at 6. This morning patient failed his swallow eval and ST evaluation was ordered. Of note patient's echocardiogram shows reduced 15 to 20% with borderline left ventricular hypertrophy. Hospitalist Physical - Constitutional Vitals: Temp Pulse Resp BP Pulse Ox 99.1 F 87 17 119/60 100 06/08/20 07:26 06/08/20 13:00 06/08/20 13:00 06/08/20 13:00 06/08/20 13:00 General appearance: Present: no acute distress, well-nourished, other (Patient resting on nasal cannula) - EENT Eyes: Present: PERRL ENT: clear oral mucosa - Neck Neck: Present: normal ROM - Respiratory Respiratory effort: normal Respiratory: bilateral: diminished - Cardiovascular Rhythm: regular Heart Sounds: Present: S1 & S2. Absent: systolic murmur, diastolic murmur - Extremities Extremities: no ischemia, pulses intact, pulses symmetrical, No edema, normal temperature, normal color, Full ROM Peripheral Pulses: within normal limits - Abdominal General gastrointestinal: soft, non-tender, non-distended, normal bowel sounds - Integumentary Integumentary: Present: warm, dry - Psychiatric Psychiatric: cooperative - Neurologic Neurologic: no focal deficits, moves all extremities - Allied Health Allied health notes reviewed: nursing, RT, social work, case management HEART Score - HEART Score Troponin: Troponin T 0.320 ng/mL (0.00-0.029) H* 06/06/20 10:19 Results - Labs CBC & Chem 7: 06/08/20 05:15 06/08/20 05:15 Labs: Laboratory Last Values WBC 7.3 K/mm3 (4.5-11.0) 06/08/20 05:15 RBC 2.71 M/mm3 (3.65-5.03) L 06/08/20 05:15 Hgb 8.8 gm/dl (11.8-15.2) L 06/08/20 05:15 Hct 26.7 % (35.5-45.6) L D 06/08/20 05:15 MCV 99 fl (84-94) H 06/08/20 05:15 MCH 33 pg (28-32) H 06/08/20 05:15 MCHC 33 % (32-34) 06/08/20 05:15 RDW 14.4 % (13.2-15.2) 06/08/20 05:15 Plt Count 170 K/mm3 (140-440) 06/08/20 05:15 Lymph % (Auto) 53.7 % (13.4-35.0) H 06/06/20 10:19 [place] % (Auto) [employer] 06/07/20 02:51 Eos % (Auto) 1.6 % (0.0-4.3) 06/06/20 10:19 Baso % (Auto) 0.3 % (0.0-1.8) 06/06/20 10:19 Lymph # (Auto) 2.4 K/mm3 (1.2-5.4) 06/06/20 10:19 [place] # (Auto) 0.3 K/mm3 (0.0-0.8) 06/06/20 10:19 Eos # (Auto) 0.1 K/mm3 (0.0-0.4) 06/06/20 10:19 Baso # (Auto) 0.0 K/mm3 (0.0-0.1) 06/06/20 10:19 Add Manual Diff Complete 06/07/20 02:51 Total Counted 100 06/07/20 02:51 Seg Neutrophils % 37.6 % (40.0-70.0) L 06/06/20 10:19 Seg Neuts % (Manual) 66.0 % (40.0-70.0) 06/07/20 02:51 Band Neutrophils % 14.0 % 06/07/20 02:51 Lymphocytes % (Manual) 8.0 % (13.4-35.0) L 06/07/20 02:51 Monocytes % (Manual) 12.0 % (0.0-7.3) H 06/07/20 02:51 Nucleated RBC % Not Reportable 06/07/20 02:51 Seg Neutrophils # 1.7 K/mm3 (1.8-7.7) L 06/06/20 10:19 Seg Neutrophils # Man 3.5 K/mm3 (1.8-7.7) 06/07/20 02:51 Band Neutrophils # 0.7 K/mm3 06/07/20 02:51 Lymphocytes # (Manual) 0.4 K/mm3 (1.2-5.4) L 06/07/20 02:51 Abs React Lymphs (Man) 0.0 K/mm3 06/07/20 02:51 Monocytes # (Manual) 0.6 K/mm3 (0.0-0.8) 06/07/20 02:51 Eosinophils # (Manual) 0.0 K/mm3 (0.0-0.4) 06/07/20 02:51 Basophils # (Manual) 0.0 K/mm3 (0.0-0.1) 06/07/20 02:51 Metamyelocytes # 0.0 K/mm3 06/07/20 02:51 Myelocytes # 0.0 K/mm3 06/07/20 02:51 Promyelocytes # 0.0 K/mm3 06/07/20 02:51 Blast Cells # 0.0 K/mm3 06/07/20 02:51 WBC Morphology Not Reportable 06/07/20 02:51 Hypersegmented Neuts Not Reportable 06/07/20 02:51 Hyposegmented Neuts Not Reportable 06/07/20 02:51 Hypogranular Neuts Not Reportable 06/07/20 02:51 Smudge Cells Not Reportable 06/07/20 02:51 Toxic Granulation Not Reportable 06/07/20 02:51 Toxic Vacuolation Not Reportable 06/07/20 02:51 Dohle Bodies Not Reportable 06/07/20 02:51 Pelger-Huet Anomaly Not Reportable 06/07/20 02:51 Denys Rods Not Reportable 06/07/20 02:51 Platelet Estimate Consistent w auto 06/07/20 02:51 Clumped Platelets Not Reportable 06/07/20 02:51 Plt Clumps, EDTA Not Reportable 06/07/20 02:51 Large Platelets Not Reportable 06/07/20 02:51 Giant Platelets Not Reportable 06/07/20 02:51 Platelet Satelliting Not Reportable 06/07/20 02:51 Plt Morphology Comment Not Reportable 06/07/20 02:51 RBC Morphology Normal 06/07/20 02:51 Dimorphic RBCs Not Reportable 06/07/20 02:51 Polychromasia Not Reportable 06/07/20 02:51 Hypochromasia Not Reportable 06/07/20 02:51 Poikilocytosis Not Reportable 06/07/20 02:51 Anisocytosis Not Reportable 06/07/20 02:51 Microcytosis Not Reportable 06/07/20 02:51 Macrocytosis Not Reportable 06/07/20 02:51 Spherocytes Not Reportable 06/07/20 02:51 Pappenheimer Bodies Not Reportable 06/07/20 02:51 Sickle Cells Not Reportable 06/07/20 02:51 Target Cells Not Reportable 06/07/20 02:51 Tear Drop Cells Not Reportable 06/07/20 02:51 Ovalocytes Not Reportable 06/07/20 02:51 Helmet Cells Not Reportable 06/07/20 02:51 [place] Bodies Not Reportable 06/07/20 02:51 Slick Rings Not Reportable 06/07/20 02:51 [place] Cells Not Reportable 06/07/20 02:51 Bite Cells Not Reportable 06/07/20 02:51 Crenated Cell Not Reportable 06/07/20 02:51 Elliptocytes Not Reportable 06/07/20 02:51 Acanthocytes (Spur) Not Reportable 06/07/20 02:51 Rouleaux Not Reportable 06/07/20 02:51 Hemoglobin C Crystals Not Reportable 06/07/20 02:51 Schistocytes Not Reportable 06/07/20 02:51 Malaria parasites Not Reportable 06/07/20 02:51 Chance Bodies Not Reportable 06/07/20 02:51 Hem Pathologist Commnt No 06/07/20 02:51 PT 16.3 Sec. (12.2-14.9) H 06/06/20 10:19 INR 1.33 (0.87-1.13) H 06/06/20 10:19 APTT 31.6 Sec. (24.2-36.6) 06/06/20 10:19 ABG pH 7.329 pH Units (7.350-7.450) L 06/06/20 11:18 ABG pCO2 27.8 mm Hg 06/06/20 11:18 ABG pO2 258.1 mm Hg (80.0-90.0) H 06/06/20 11:18 ABG HCO3 14.3 mmol/L (20.0-26.0) L 06/06/20 11:18 ABG O2 Saturation 99.4 % (95.0-99.0) H 06/06/20 11:18 ABG O2 Content 13.2 (0.0-44) 06/06/20 11:18 ABG Base Excess -10.5 mmol/L (-2.0-3.0) L 06/06/20 11:18 ABG Hemoglobin 9.1 gm/dl (14.0-18.0) L 06/06/20 11:18 ABG Carboxyhemoglobin 1.3 % (0.0-5.0) 06/06/20 11:18 ABG Methemoglobin Not Reportable 06/06/20 11:18 VBG pH 7.438 (7.320-7.420) H 06/06/20 10:19 Oxyhemoglobin 98.2 % (95.0-99.0) 06/06/20 11:18 FiO2 21 % 06/06/20 11:18 Sodium 142 mmol/L (137-145) 06/08/20 05:15 Potassium 4.9 mmol/L (3.6-5.0) 06/08/20 05:15 Chloride 110.0 mmol/L (98-107) H 06/08/20 05:15 Carbon Dioxide 20 mmol/L (22-30) L 06/08/20 05:15 Anion Gap 17 mmol/L 06/08/20 05:15 BUN 93 mg/dL (9-20) H 06/08/20 05:15 Creatinine 3.2 mg/dL (0.8-1.3) H 06/08/20 05:15 Estimated GFR 23 ml/min 06/08/20 05:15 BUN/Creatinine Ratio 29 % 06/08/20 05:15 Glucose 165 mg/dL (75-100) H 06/08/20 05:15 POC Glucose 118 mg/dL (70-105) H 06/08/20 11:37 Lactic Acid 1.50 mmol/L (0.7-2.0) 06/08/20 05:15 Calcium 7.2 mg/dL (8.4-10.2) L 06/08/20 05:15 Total Bilirubin 0.40 mg/dL (0.1-1.2) 06/07/20 02:51 AST 135 units/L (5-40) H 06/07/20 02:51 ALT 70 units/L (7-56) H 06/07/20 02:51 Alkaline Phosphatase 82 units/L (35-129) 06/07/20 02:51 Ammonia 64.0 umol/L (25-60) H 06/06/20 10:19 Total Creatine Kinase 629 units/L (55-170) H 06/06/20 10:19 CK-MB (CK-2) 5.4 ng/mL (0.0-4.0) H 06/06/20 10:19 CK-MB (CK-2) Rel Index 0.8 (0-4) 06/06/20 10:19 Troponin T 0.320 ng/mL (0.00-0.029) H* 06/06/20 10:19 Total Protein 6.2 g/dL (6.3-8.2) L 06/07/20 02:51 Albumin 3.2 g/dL (3.9-5) L 06/07/20 02:51 Albumin/Globulin Ratio 1.1 % 06/07/20 02:51 Triglycerides 103 mg/dL (2-149) 06/06/20 10:19 Cholesterol 84 mg/dL (50-199) 06/06/20 10:19 LDL Cholesterol Direct 28 mg/dL (50-130) L 06/06/20 10:19 HDL Cholesterol 44 mg/dL (40-59) 06/06/20 10:19 Cholesterol/HDL Ratio 1.90 % 06/06/20 10:19 TSH 4.440 mlU/mL (0.270-4.200) H 06/06/20 10:19 Free T4 1.55 ng/dL (0.76-1.46) H 06/06/20 10:19 PTH Intact 271.9 pg/mL (15-65) H 06/08/20 05:15 Urine Color Yellow (Yellow) 06/06/20 14:02 Urine Turbidity Cloudy (Clear) 06/06/20 14:02 Urine pH 6.0 (5.0-7.0) 06/06/20 14:02 Ur Specific [place] 1.013 (1.003-1.030) 06/06/20 14:02 Urine Protein 100 mg/dl mg/dL (Negative) 06/06/20 14:02 Urine Glucose (UA) Neg mg/dL (Negative) 06/06/20 14:02 Urine Ketones Neg mg/dL (Negative) 06/06/20 14:02 Urine Blood Sm (Negative) 06/06/20 14:02 Urine Nitrite Neg (Negative) 06/06/20 14:02 Urine Bilirubin Neg (Negative) 06/06/20 14:02 Urine Urobilinogen < 2.0 mg/dL (<2.0) 06/06/20 14:02 Ur Leukocyte Esterase Lg (Negative) 06/06/20 14:02 Urine WBC (Auto) > 182.0 /HPF (0.0-6.0) H 06/06/20 14:02 Urine RBC (Auto) 55.0 /HPF (0.0-6.0) 06/06/20 14:02 U Epithel Cells (Auto) 1.0 /HPF (0-13.0) 06/06/20 14:02 Urine WBC Clumps 2+ /HPF 06/06/20 14:02 Urine Creatinine 57.0 mg/dL (0.1-20.0) H 06/06/20 21:05 Urine Sodium 85 mmol/L 06/06/20 21:05 Urine Opiates Screen Presumptive negative 06/06/20 14:02 Urine Methadone Screen Presumptive negative 06/06/20 14:02 Ur Barbiturates Screen Presumptive negative 06/06/20 14:02 Ur Phencyclidine Scrn Presumptive negative 06/06/20 14:02 Ur Amphetamines Screen Presumptive negative 06/06/20 14:02 U Benzodiazepines Scrn Presumptive negative 06/06/20 14:02 Urine Cocaine Screen Presumptive negative 06/06/20 14:02 U Marijuana (THC) Screen Presumptive negative 06/06/20 14:02 Drugs of Abuse Note Disclamer 06/06/20 14:02 Plasma/Serum Alcohol < 0.01 % (0-0.07) 06/06/20 10:19 Blood Type O POSITIVE 06/06/20 14:47 Antibody Screen Negative 06/06/20 14:47 Microbiology: Microbiology 06/06/20 10:19 Peripheral/Venous Blood Culture - Preliminary Coag Negative Staphylococcus 06/08/20 10:11 Peripheral/Venous Blood Culture - Preliminary Culture in Progress 06/08/20 10:11 Peripheral/Venous Blood Culture - Preliminary Culture in Progress 06/06/20 10:19 Peripheral/Venous Blood Culture - Preliminary NO GROWTH AFTER 48 HOURS 06/07/20 11:10 Urine,Catheterized - Indwelling Catheter Urine Culture - Preliminary NO GROWTH AFTER 24 HOURS Hair/IV: Voiding Method Indwelling Catheter Active Medications - Current Medications Current Medications: Generic Name Dose Route Start Last Admin Trade Name Freq PRN Reason Stop Dose Admin Acetaminophen 650 mg 06/06/20 15:00 Acetaminophen 325 Mg Tab PO Q6H PRN Pain, Mild (1-3) Albuterol 2.5 mg 06/06/20 15:00 Albuterol 2.5 Mg/3 Ml Nebu IH Q3HRT PRN Shortness Of Breath Allopurinol 100 mg 06/07/20 10:00 06/08/20 10:56 Allopurinol 100 Mg Tab PO Not Given [facility] Calcium Carbonate/Glycine 500 mg 06/07/20 10:00 06/08/20 10:56 Calcium Carbonate 500 Mg Tab Chew PO Not Given [facility]DAY [facility] Cholecalciferol 2,000 unit 06/07/20 10:00 06/08/20 10:56 Cholecalciferol (Vit D3) 1000 Unit (25 Mcg) Tab PO Not Given [facility] Diclofenac Sodium 20 applic 06/07/20 10:00 06/08/20 10:56 Diclofenac Sodium 1% Topical Gel 100 Gm TP 20 applic QDAY YELENA Administration Dicyclomine HCl 10 mg 06/06/20 20:00 06/08/20 13:44 Dicyclomine 10 Mg Cap PO Not Given TID YELENA Docusate Sodium 100 mg 06/06/20 15:57 Docusate Sodium 100 Mg Cap PO BID PRN Constipation Famotidine 20 mg 06/08/20 11:00 06/08/20 10:56 Famotidine 20 Mg/2 Ml Inj IV 20 mg QDAY YELENA Administration Heparin Sodium (Porcine) 5,000 unit 06/07/20 22:00 06/08/20 10:57 Heparin 5,000 Unit/1 Ml Vial SUB-Q 5,000 unit Q12HR YELENA Administration Hydromorphone HCl 0.25 mg 06/06/20 15:00 Hydromorphone 1 Mg/1 Ml Inj IV Q4H PRN Pain, Moderate (4-6) Dopamine HCl/Dextrose 800 mg in 250 mls @ 2.885 mls/hr 06/06/20 12:00 06/08/20 11:51 Intropin Drip 800 Mg/D5w 250 Ml IV 06/10/20 02:39 4 mcg/kg/min TITR ONE 5.77 mls/hr Titration Protocol 2 MCG/KG/MIN NORepinephrine/NS 8 MG-250 ML 8 mg in 250 mls @ 3.75 mls/hr 06/06/20 20:00 06/08/20 08:50 Norepinephrine/Ns 8 Mg-250 Ml (Double Conc) IV 6 mcg/min TITRATE YELENA 11.25 mls/hr Titration Protocol 2 MCG/MIN Vasopressin 20 unit/ Sodium 101 mls @ 9.09 mls/hr 06/07/20 03:00 06/08/20 11:32 Chloride IV 0.03 units/min TITR YELENA 9.09 mls/hr Administration Protocol 0.03 UNITS/MIN Cefepime HCl 2 gm in 100 mls @ 200 mls/hr 06/07/20 22:00 06/07/20 22:07 Cefepime/Ns 2 Gm/100 Ml IV 200 mls/hr Q24HR@2200 YELENA Administration Sodium Bicarbonate 100 meq/ 1,100 mls @ 75 mls/hr 06/07/20 17:00 06/08/20 11:00 Sterile Water IV 75 mls/hr DIRECT YELENA Administration Lactated Ringer's 1,000 mls @ 999 mls/hr 06/08/20 10:45 06/08/20 11:34 Lactated Ringers IV 06/10/20 11:46 999 mls/hr BOLUS YELENA Administration Amiodarone HCl 900 mg/ 500 mls @ 33.333 mls/hr 06/08/20 12:00 06/08/20 11:51 Dextrose IV 1 mg/min DIRECT YELENA 33.333 mls/hr Administration Protocol 1 MG/MIN Lactated Ringer's 1,000 ml 06/07/20 13:15 06/08/20 00:25 Lactated Ringers 1000 Ml Iv Soln IV 06/09/20 13:16 1,000 ml BOLUS YELENA Administration Magnesium Citrate 300 ml 06/06/20 16:20 Magnesium Citrate 300 Ml Oral Liqd PO QDAY PRN Constipation Pravastatin Sodium 10 mg 06/06/20 22:00 06/08/20 04:48 Pravastatin 20 Mg Tab PO Not Given QHS YELENA Sodium Chloride 10 ml 06/06/20 15:00 06/08/20 10:56 Sodium Chloride 0.9% 10 Ml Flush Syringe IV 10 ml BID YELENA Administration Sodium Chloride 10 ml 06/06/20 15:00 Sodium Chloride 0.9% 10 Ml Flush Syringe IV PRN PRN LINE FLUSH Nutrition/Malnutrition Assess - Dietary Evaluation Nutrition/Malnutrition Findings: Nutrition Notes Start: 06/08/20 11:43 Freq: Status: Active Protocol: Document 06/08/20 11:43 CW (Rec: 06/08/20 11:54 CW [id number]) Nutrition Notes 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 Current Diet NPO Labs/Tests K 4.9 BG 165 BUN 93 Cr 3.2 Pertinent Medications Levophed, dopamine, vasopressin LR 1L Cefepime Height 5 ft 8 in Weight 76.9 kg [place] Body Weight (kg) 70.00 BMI 25.7 Weight Status Appropriate Subjective/Other Information RN screen for skin risk. Mayur score of 10. Pt has a stage 1 pressure ulcer to sacrum. Pt possibly s/p CVA. PT failed bedside swallow test . ST to evaluate. Recommend alternative source of feeding once medically feasible. Per MD feeding not advisable at this time. Pt has some diarrhea likely r/t ABTx. Burn Absent Trauma Absent GI Symptoms Diarrhea Difficulty In Swallowing Skin Integrity/Comment Stage 1 pressure ulcer Current % PO Negligible Minimum of two criteria No physical signs of malnutrition #2 Nutrition Diagnosis Increased nutrient needs ( specify in comment below) Comments: protein Etiology wound healing As Evidenced by Signs and Symptoms stage 1 pressure ulcer to sacrum #1 Nutrition Diagnosis Inadequate oral intake Etiology dysphagia As Evidenced by Signs and Symptoms pt recently failed beside swallow test Is patient on ventilator? No Is Patient Ambulatory and/or Out of Bed Yes REE-([facility]. Donna-ambulatory/OOB) [ 1896.050 [id number]] Calculation Used for Recommendations [facility] Additional Notes protein needs: 62 - 153g (0.8 - 1.2g/kgBW for ISAAC) fluid needs: 1 ml/kcal Nutrition Intervention Change Diet Order: Initiate TF when medically feasible Nutrition Support: Nepro at 40 ml/hr with a free water flush of 175 ml q4h. Kcal 1,728 Protein (gm) 78 Fluid (mL) 698 Goal #1 diet advancment when medically feasible Goal #2 wound healing Anticipated Discharge Needs: unable to determine at this time Follow-Up By: 06/10/20 Additional Comments F/U diet advancement, speech eval
[2020-06-08] MEDS: CEFEPIME/NS 2 GM/100 ML 2 GM/100 ML BAG IV SCH (21:16)
[2020-06-09] MEDS: SODIUM BICARBONATE 100 MEQ in WATER FOR INJECTION (PF) 1,000 ML IV SCH ×2 (01:00→17:55)
[2020-06-09 05:05] LABS: Hematocrit 21.8 % (35.5-45.6); Hemoglobin 7.4 gm/dl (11.8-15.2); Mean Corpuscular HGB Conc 34 % (32-34); Mean Corpuscular Volume 98 fl (84-94); Platelet Count 136 K/mm3 (140-440); Red Blood Count 2.24 M/mm3 (3.65-5.03); Red Cell Distribution Width 14.6 % (13.2-15.2)
[2020-06-09 05:38] LABS: Calcium 7.7 mg/dL (8.4-10.2)
[2020-06-09] MEDS: DICYCLOMINE 10 MG CAP PO SCH ×4 (08:26→22:22)
--- NOTE | 2020-06-09 09:13 | Ultrasound Report ---
ULTRASOUND RENAL INDICATION: Acute renal failure.. COMPARISON: No relevant prior imaging study available. FINDINGS: RIGHT KIDNEY: Size: 7.7 cm. Echogenicity: Echogenic. Cortical thickness: 1.1 cm. Hydronephrosis: None. Cyst or mass: 3.5 x 1.7 x 3.7 cm exophytic mass arises from lower pole right kidney. Stones: None. LEFT KIDNEY: Size: 8.1 cm. Echogenicity: Echogenic. Cortical thickness: 1.0 cm. Hydronephrosis: None. Cyst or mass: None. Stones: None. Urinary Bladder: No significant abnormality. Free Fluid: None. Additional Findings: None. IMPRESSION 1. Small echogenic kidneys characteristic for chronic medical renal disease. No hydronephrosis.. 2. 3.7 cm lesion arises from lower pole right kidney with questionable mild increased color Doppler f low on transverse image only worrisome for possible renal cell carcinoma. Recommend CT for further ch aracterization. Signer Name: Garrett Avitia MD Signed: 06/09/2020 9:08 AM Workstation Name: [id number]
--- NOTE | 2020-06-09 09:43 | Progress Note ---
Assessment and Plan 1. Acute kidney injury: Vasomotor ISAAC in the setting of shock. Renal US ordered negative for hydro. Baseline renal function is unknown. Gentle IV fluids. Monitor renal function. Creatinine level same as yesterday. Avoid nephrotoxic agents. Meds dosage based on GFR. Monitor for [employer] needs. 2. FEN: Hyperkalemia, improved, monitor. Anion-gap metabolic acidoosis, 2/2 Lactic acidosis, bicarb drip, monitor. Monitor lytes and volume status. 3. Sepsis with shock: Currently off pressors. Monitor BP. 4. UTI: Abx per ID. 5. Acute hypoxemic respiratory failure: NC O2. CXR clear. COVID test negative. 6. Diarrhea: ?Colitis. C.diff negative. 7. R kidney mass: Further testing depends on clinical course. 8. Metabolic encephalopathy: Monitor. 9. H/o Dementia: Supportive care. 10. H/o HTN: Monitor BP. 11. Anemia, POA: Monitor. Subjective: Patient was seen and examined at the bedside. RN at the bedside. Objective: General appearance: well-developed, appears stated age, not in distress HEENT: ATNC Neck: trachea midline Respiratory: ctab Heart: regular, S1S2, no murmur Gastrointestinal: soft, normoactive bowel sounds, not tender Integumentary: no rash, warm and dry Ext: no edema Neurologic: alert, able to tell his name, able to move extremities Ext: no edema : Hair catheter Subjective Date of service: 06/09/20 Principal diagnosis: shock Objective - Vital Signs Vital signs: Vital Signs - 12hr 06/08/20 06/08/20 06/08/20 21:50 22:00 22:10 Temperature Pulse Rate 80 77 83 Pulse Rate [ From Monitor] Respiratory 14 13 13 Rate Blood Pressure 105/53 95/54 95/54 O2 Sat by Pulse 99 98 99 Oximetry 06/08/20 06/08/20 06/08/20 22:20 22:30 22:40 Temperature Pulse Rate 74 76 77 Pulse Rate [ From Monitor] Respiratory 13 14 13 Rate Blood Pressure 88/55 100/52 100/52 O2 Sat by Pulse 99 98 100 Oximetry 06/08/20 06/08/20 06/08/20 22:50 23:00 23:10 Temperature Pulse Rate 80 82 75 Pulse Rate [ From Monitor] Respiratory 14 17 13 Rate Blood Pressure 102/51 102/51 108/52 O2 Sat by Pulse 100 99 99 Oximetry 06/08/20 06/08/20 06/08/20 23:20 23:30 23:40 Temperature Pulse Rate 81 81 77 Pulse Rate [ From Monitor] Respiratory 15 14 13 Rate Blood Pressure 95/53 95/53 96/57 O2 Sat by Pulse 100 100 100 Oximetry 06/08/20 06/09/20 06/09/20 23:50 00:00 00:10 Temperature 98.3 F Pulse Rate 77 77 76 Pulse Rate [ 78 From Monitor] Respiratory 14 14 13 Rate Blood Pressure 113/53 110/53 110/53 O2 Sat by Pulse 100 99 100 Oximetry 06/09/20 06/09/20 06/09/20 00:20 00:30 00:40 Temperature Pulse Rate 89 85 84 Pulse Rate [ From Monitor] Respiratory 12 23 14 Rate Blood Pressure 112/59 109/67 109/67 O2 Sat by Pulse 100 97 98 Oximetry 06/09/20 06/09/20 06/09/20 00:50 01:00 01:10 Temperature Pulse Rate 79 83 78 Pulse Rate [ From Monitor] Respiratory 15 14 15 Rate Blood Pressure 111/56 111/60 111/60 O2 Sat by Pulse 99 92 98 Oximetry 06/09/20 06/09/20 06/09/20 01:20 01:30 01:40 Temperature Pulse Rate 79 80 80 Pulse Rate [ From Monitor] Respiratory 14 14 13 Rate Blood Pressure 114/65 104/52 104/52 O2 Sat by Pulse 99 89 100 Oximetry 06/09/20 06/09/20 06/09/20 01:50 02:00 02:10 Temperature Pulse Rate 78 83 77 Pulse Rate [ From Monitor] Respiratory 14 15 15 Rate Blood Pressure 107/53 107/53 110/61 O2 Sat by Pulse 99 99 99 Oximetry 06/09/20 06/09/20 06/09/20 02:20 02:30 02:40 Temperature Pulse Rate 81 80 80 Pulse Rate [ From Monitor] Respiratory 14 14 14 Rate Blood Pressure 108/54 120/58 120/58 O2 Sat by Pulse 99 93 99 Oximetry 06/09/20 06/09/20 06/09/20 02:50 03:00 03:10 Temperature Pulse Rate 81 83 82 Pulse Rate [ From Monitor] Respiratory 15 18 16 Rate Blood Pressure 115/54 115/54 115/54 O2 Sat by Pulse 99 99 99 Oximetry 06/09/20 06/09/20 06/09/20 03:20 03:30 03:40 Temperature Pulse Rate 82 84 82 Pulse Rate [ From Monitor] Respiratory 15 15 18 Rate Blood Pressure 111/58 111/58 115/58 O2 Sat by Pulse 98 97 99 Oximetry 06/09/20 06/09/20 06/09/20 03:50 04:00 04:10 Temperature 98.8 F Pulse Rate 84 92 H 81 Pulse Rate [ 81 From Monitor] Respiratory 16 17 16 Rate Blood Pressure 114/59 114/59 126/65 O2 Sat by Pulse 98 97 96 Oximetry 06/09/20 06/09/20 06/09/20 04:20 04:30 04:40 Temperature Pulse Rate 81 81 82 Pulse Rate [ From Monitor] Respiratory 16 17 15 Rate Blood Pressure 116/59 116/59 O2 Sat by Pulse 98 97 98 Oximetry 06/09/20 06/09/20 06/09/20 04:50 05:00 05:10 Temperature Pulse Rate 82 81 83 Pulse Rate [ From Monitor] Respiratory 16 16 18 Rate Blood Pressure 120/58 116/61 116/61 O2 Sat by Pulse 98 96 98 Oximetry 06/09/20 06/09/20 06/09/20 05:20 05:30 05:40 Temperature Pulse Rate 80 84 83 Pulse Rate [ From Monitor] Respiratory 15 15 15 Rate Blood Pressure 119/64 122/62 122/62 O2 Sat by Pulse 97 96 98 Oximetry 06/09/20 06/09/20 06/09/20 05:50 06:00 08:00 Temperature 98.9 F Pulse Rate 83 84 Pulse Rate [ From Monitor] Respiratory 16 16 Rate Blood Pressure 125/70 128/63 O2 Sat by Pulse 97 Oximetry 06/09/20 08:14 Temperature Pulse Rate Pulse Rate [ From Monitor] Respiratory Rate Blood Pressure O2 Sat by Pulse 97 Oximetry - Lab 06/09/20 04:30 06/09/20 04:30 Most recent lab results ABG pH 7.329 pH Units (7.350-7.450) L 06/06/20 11:18 ABG pCO2 27.8 mm Hg 06/06/20 11:18 ABG pO2 258.1 mm Hg (80.0-90.0) H 06/06/20 11:18 ABG HCO3 14.3 mmol/L (20.0-26.0) L 06/06/20 11:18 ABG O2 Saturation 99.4 % (95.0-99.0) H 06/06/20 11:18 Calcium 7.7 mg/dL (8.4-10.2) L 06/09/20 04:30 Urine Creatinine 57.0 mg/dL (0.1-20.0) H 06/06/20 21:05 Urine Sodium 85 mmol/L 06/06/20 21:05 Medications & Allergies - Medications Allergies/Adverse Reactions: Allergies No Known Allergies Allergy (Verified 06/06/20 15:21) Home Medications: Home Medications Medication Instructions Recorded Confirmed Last Taken Type Amlodipine Besylate [Norvasc] 5 mg PO QDAY 06/06/20 06/06/20 Unknown History Bisacodyl [Women's Gentle Laxative] 5 mg PO BID 06/06/20 06/06/20 Unknown History Calcium Carb/Magnesium Hydrox 500 mg PO QDAY 06/06/20 06/06/20 Unknown History [Antacid 1000-200 mg Tab Chew] Cholecalciferol (Vitamin D3) 2,000 unit PO QDAY 06/06/20 06/06/20 Unknown History [Vitamin D3 2,000 UNIT CAP] Dextrose/Dextrin/Maltose 24 gm PO ONCE 06/06/20 06/06/20 Unknown History [Insta-Glucose Gel] Diclofenac 1% [Diclofenac 1% 100 gm TP QDAY 06/06/20 06/06/20 Unknown History topical gel] Dicyclomine [Bentyl] 10 mg PO TID 06/06/20 06/06/20 Unknown History Docusate Sodium [Colace] 100 mg PO BID PRN 06/06/20 06/06/20 Unknown History Furosemide [Lasix] 40 mg PO QDAY 06/06/20 06/06/20 Unknown History Insulin Lispro [Insulin Lispro 10 unit SQ TID 06/06/20 06/06/20 Unknown History Kwikpen U-100] Magnesium Citrate [Citroma] 296 ml PO QDAY 06/06/20 06/06/20 Unknown History Melatonin [Melatonin 3MG TAB] 6 mg PO QHS 06/06/20 06/06/20 Unknown History Oxycodone HCl/Acetaminophen 1 each PO QDAY 06/06/20 06/06/20 Unknown History [Oxycodone-Acetaminophen 10-325] Pantoprazole [Protonix] 40 mg PO QDAY 06/06/20 06/06/20 Unknown History Pioglitazone HCl [Actos] 30 mg PO QDAY 06/06/20 06/06/20 Unknown History Polyethylene Glycol 3350 [Gavilax] 10 gm PO QDAY 06/06/20 06/06/20 Unknown History Pravastatin Sodium [Pravastatin] 10 mg PO QHS 06/06/20 06/06/20 Unknown History Tamsulosin [Flomax] 0.4 mg PO QDAY 06/06/20 06/06/20 Unknown History allopurinoL [Zyloprim] 100 mg PO QDAY 06/06/20 06/06/20 Unknown History lisinopriL [Lisinopril] 20 mg PO QDAY 06/06/20 06/06/20 Unknown History Active Medications: Generic Name Dose Route Start Last Admin Trade Name Freq PRN Reason Stop Dose Admin Acetaminophen 650 mg 06/06/20 15:00 Acetaminophen 325 Mg Tab PO Q6H PRN Pain, Mild (1-3) Albuterol 2.5 mg 06/06/20 15:00 Albuterol 2.5 Mg/3 Ml Nebu IH Q3HRT PRN Shortness Of Breath Allopurinol 100 mg 06/07/20 10:00 06/08/20 10:56 Allopurinol 100 Mg Tab PO Not Given QDAY [facility] Calcium Carbonate/Glycine 500 mg 06/07/20 10:00 06/08/20 10:56 Calcium Carbonate 500 Mg Tab Chew PO Not Given QDAY [facility] Cholecalciferol 2,000 unit 06/07/20 10:00 06/08/20 10:56 Cholecalciferol (Vit D3) 1000 Unit (25 Mcg) Tab PO Not Given QDAY [facility] Diclofenac Sodium 20 applic 06/07/20 10:00 06/08/20 10:56 Diclofenac Sodium 1% Topical Gel 100 Gm TP 20 applic QDAY [facility] Administration Dicyclomine HCl 10 mg 06/06/20 20:00 06/09/20 08:26 Dicyclomine 10 Mg Cap PO Not Given TID YELENA Docusate Sodium 100 mg 06/06/20 15:57 Docusate Sodium 100 Mg Cap PO BID PRN Constipation Famotidine 20 mg 06/08/20 11:00 06/08/20 10:56 Famotidine 20 Mg/2 Ml Inj IV 20 mg QDAY YELENA Administration Heparin Sodium (Porcine) 5,000 unit 06/07/20 22:00 06/08/20 21:15 Heparin 5,000 Unit/1 Ml Vial SUB-Q 5,000 unit Q12HR YELENA Administration Hydromorphone HCl 0.25 mg 06/06/20 15:00 06/08/20 21:09 Hydromorphone 1 Mg/1 Ml Inj IV 0.25 mg Q4H PRN Administration Pain, Moderate (4-6) Dopamine HCl/Dextrose 800 mg in 250 mls @ 2.885 mls/hr 06/06/20 12:00 13:00 Intropin Drip 800 Mg/D5w 250 Ml IV 06/10/20 02:39 0 mcg/kg/min TITR ONE 0 mls/hr Titration Protocol 2 MCG/KG/MIN NORepinephrine/NS 8 MG-250 ML 8 mg in 250 mls @ 3.75 mls/hr 06/06/20 20:00 06/08/20 14:50 Norepinephrine/Ns 8 Mg-250 Ml (Double Conc) IV 2 mcg/min TITRATE YELENA 3.75 mls/hr Titration Protocol 2 MCG/MIN Vasopressin 20 unit/ Sodium 101 mls @ 9.09 mls/hr 06/07/20 03:00 06/08/20 21:15 Chloride IV 0.03 units/min TITR YELENA 9.09 mls/hr Administration Protocol 0.03 UNITS/MIN Cefepime HCl 2 gm in 100 mls @ 200 mls/hr 06/07/20 22:00 06/08/20 21:16 Cefepime/Ns 2 Gm/100 Ml IV 200 mls/hr Q24HR@2200 [facility] Administration Sodium Bicarbonate 100 meq/ 1,100 mls @ 75 mls/hr 06/07/20 17:00 06/09/20 01:00 Sterile Water IV 75 mls/hr DIRECT YELENA Administration Amiodarone HCl 900 mg/ 500 mls @ 33.333 mls/hr 06/08/20 12:00 06/08/20 18:00 Dextrose IV 0.5 mg/min DIRECT YELENA 16.667 mls/hr Infusion Protocol 1 MG/MIN Magnesium Citrate 300 ml 06/06/20 16:20 Magnesium Citrate 300 Ml Oral Liqd PO QDAY PRN Constipation Pravastatin Sodium 10 mg 06/06/20 22:00 06/08/20 04:48 Pravastatin 20 Mg Tab PO Not Given QHS [facility]LE[facility] Sodium Chloride 10 ml 06/06/20 15:00 06/08/20 10:56 Sodium Chloride 0.9% 10 Ml Flush Syringe IV 10 ml BID YELENA Administration Sodium Chloride 10 ml 06/06/20 15:00 Sodium Chloride 0.9% 10 Ml Flush Syringe IV PRN PRN LINE FLUSH
[2020-06-09] MEDS: HEPARIN 5,000 UNIT/1 ML VIAL SUB-Q SCH ×2 (09:59→22:22)
[2020-06-09] MEDS: CALCIUM CARBONATE 500 MG TAB CHEW PO SCH (09:59)
[2020-06-09] MEDS: FAMOTIDINE 20 MG/2 ML INJ IV SCH (09:59)
[2020-06-09] MEDS: allopurinoL 100 MG TAB PO SCH (09:59)
[2020-06-09] MEDS: DICLOFENAC SODIUM 1% TOPICAL GEL 100 GM TP SCH (09:59)
[2020-06-09] MEDS: CHOLECALCIFEROL (VIT D3) 1000 UNIT (25 mcg) TAB PO SCH (09:59)
--- NOTE | 2020-06-09 10:53 | Progress Note ---
Assessment and Plan 80 y/o male with sepsis with shock and positive blood cultures along with CHF with severe global hypokinesis. 06/09/20: Continue Amio. Rate is controlled. Follow up cardiology recs. Abx therapy per ID. Cultures negative so far, with one showing coag negative staph. Wean FiO2 as tolerated. Critical Care standpoint, stable for transfer to floor/telemetry. Speech to assess swallowing. Sepsis-exact etiology is unknown, giving volume now but mindful of CHF status. Only on 3 liters NC. Currently tachycardic. Appears to be afib now. Currently on abx and follow up cultures. CV-tachycardia, most likely sepsis related but with low EF,could be intrinsic. Ordered Stat EKG to eval for afib. Given hypotension will need something like amio for rate control vs cardioversion. Pulm- stable on 3 liters. GI-NPO for right now Neuro-dementia but stable. Guarded prognosis. CCT 31 minutes Subjective Date of service: 06/09/20 Principal diagnosis: shock Interval history: Off all pressors now. Mental status is stable. Appreciate Cardiology eval and help. Rate controlled now. Objective - Constitutional Vitals: Vital Signs - 12hr 06/08/20 06/08/20 06/08/20 23:00 23:10 23:20 Temperature Pulse Rate 82 75 81 Pulse Rate [ From Monitor] Respiratory 17 13 15 Rate Blood Pressure 102/51 108/52 95/53 O2 Sat by Pulse 99 99 100 Oximetry 06/08/20 06/08/20 06/08/20 23:30 23:40 23:50 Temperature Pulse Rate 81 77 77 Pulse Rate [ From Monitor] Respiratory 14 13 14 Rate Blood Pressure 95/53 96/57 113/53 O2 Sat by Pulse 100 100 100 Oximetry 06/09/20 06/09/20 06/09/20 00:00 00:10 00:20 Temperature 98.3 F Pulse Rate 77 76 89 Pulse Rate [ 78 From Monitor] Respiratory 14 13 12 Rate Blood Pressure 110/53 110/53 112/59 O2 Sat by Pulse 99 100 100 Oximetry 06/09/20 06/09/20 06/09/20 00:30 00:40 00:50 Temperature Pulse Rate 85 84 79 Pulse Rate [ From Monitor] Respiratory 23 14 15 Rate Blood Pressure 109/67 109/67 111/56 O2 Sat by Pulse 97 98 99 Oximetry 06/09/20 06/09/20 06/09/20 01:00 01:10 01:20 Temperature Pulse Rate 83 78 79 Pulse Rate [ From Monitor] Respiratory 14 15 14 Rate Blood Pressure 111/60 111/60 114/65 O2 Sat by Pulse 92 98 99 Oximetry 06/09/20 06/09/20 06/09/20 01:30 01:40 01:50 Temperature Pulse Rate 80 80 78 Pulse Rate [ From Monitor] Respiratory 14 13 14 Rate Blood Pressure 104/52 104/52 107/53 O2 Sat by Pulse 89 100 99 Oximetry 06/09/20 06/09/20 06/09/20 02:00 02:10 02:20 Temperature Pulse Rate 83 77 81 Pulse Rate [ From Monitor] Respiratory 15 15 14 Rate Blood Pressure 107/53 110/61 108/54 O2 Sat by Pulse 99 99 99 Oximetry 06/09/20 06/09/20 06/09/20 02:30 02:40 02:50 Temperature Pulse Rate 80 80 81 Pulse Rate [ From Monitor] Respiratory 14 14 15 Rate Blood Pressure 120/58 120/58 115/54 O2 Sat by Pulse 93 99 99 Oximetry 06/09/20 06/09/20 06/09/20 03:00 03:10 03:20 Temperature Pulse Rate 83 82 82 Pulse Rate [ From Monitor] Respiratory 18 16 15 Rate Blood Pressure 115/54 115/54 111/58 O2 Sat by Pulse 99 99 98 Oximetry 06/09/20 06/09/20 06/09/20 03:30 03:40 03:50 Temperature Pulse Rate 84 82 84 Pulse Rate [ From Monitor] Respiratory 15 18 16 Rate Blood Pressure 111/58 115/58 114/59 O2 Sat by Pulse 97 99 98 Oximetry 06/09/20 06/09/20 06/09/20 04:00 04:10 04:20 Temperature 98.8 F Pulse Rate 92 H 81 81 Pulse Rate [ 81 From Monitor] Respiratory 17 16 16 Rate Blood Pressure 114/59 126/65 116/59 O2 Sat by Pulse 97 96 98 Oximetry 06/09/20 06/09/20 06/09/20 04:30 04:40 04:50 Temperature Pulse Rate 81 82 82 Pulse Rate [ From Monitor] Respiratory 17 15 16 Rate Blood Pressure 116/59 120/58 O2 Sat by Pulse 97 98 98 Oximetry 0406/09/20 06/09/20 05:00 05:10 05:20 Temperature Pulse Rate 81 83 80 Pulse Rate [ From Monitor] Respiratory 16 18 15 Rate Blood Pressure 116/61 116/61 119/64 O2 Sat by Pulse 96 98 97 Oximetry 06/09/20 06/09/20 06/09/20 05:30 05:40 05:50 Temperature Pulse Rate 84 83 83 Pulse Rate [ From Monitor] Respiratory 15 15 16 Rate Blood Pressure 122/62 122/62 125/70 O2 Sat by Pulse 96 98 97 Oximetry 06/09/20 06/09/20 06/09/20 06:00 08:00 08:14 Temperature 98.9 F Pulse Rate 84 Pulse Rate [ From Monitor] Respiratory 16 Rate Blood Pressure 128/63 O2 Sat by Pulse 97 Oximetry - Labs CBC & Chem 7: 06/09/20 04:30 06/09/20 04:30 Labs: Abnormal lab results 06/08/20 06/08/20 06/08/20 Range/Units 11:37 17:57 23:42 RBC (3.65-5.03) M/mm3 Hgb (11.8-15.2) gm/dl Hct (35.5-45.6) % MCV (84-94) fl MCH (28-32) pg Plt Count (140-440) K/mm3 Chloride (98-107) mmol/L Carbon Dioxide (22-30) mmol/L BUN (9-20) mg/dL Creatinine (0.8-1.3) mg/dL Glucose (75-100) mg/dL POC Glucose 118 H 131 H 113 H (70-105) mg/dL Calcium (8.4-10.2) mg/dL Troponin T (0.00-0.029) ng/mL 06/09/20 06/09/20 06/09/20 Range/Units 04:30 04:30 05:40 RBC 2.24 L (3.65-5.03) M/mm3 Hgb 7.4 L (11.8-15.2) gm/dl Hct 21.8 L (35.5-45.6) % MCV 98 H (84-94) fl MCH 33 H (28-32) pg Plt Count 136 L (140-440) K/mm3 Chloride 107.8 H (98-107) mmol/L Carbon Dioxide 21 L (22-30) mmol/L BUN 95 H (9-20) mg/dL Creatinine 3.2 H (0.8-1.3) mg/dL Glucose 114 H (75-100) mg/dL POC Glucose 112 H (70-105) mg/dL Calcium 7.7 L (8.4-10.2) mg/dL Troponin T (0.00-0.029) ng/mL 06/09/20 Range/Units 08:59 RBC (3.65-5.03) M/mm3 Hgb (11.8-15.2) gm/dl Hct (35.5-45.6) % MCV (84-94) fl MCH (28-32) pg Plt Count (140-440) K/mm3 Chloride (98-107) mmol/L Carbon Dioxide (22-30) mmol/L BUN (9-20) mg/dL Creatinine (0.8-1.3) mg/dL Glucose (75-100) mg/dL POC Glucose (70-105) mg/dL Calcium (8.4-10.2) mg/dL Troponin T 0.239 H* D (0.00-0.029) ng/mL Medications & Allergies - Medications Allergies/Adverse Reactions: Allergies No Known Allergies Allergy (Verified 06/06/20 15:21) Home Medications: Home Medications Medication Instructions Recorded Confirmed Last Taken Type Amlodipine Besylate [Norvasc] 5 mg PO QDAY 06/06/20 06/06/20 Unknown History Bisacodyl [Women's Gentle Laxative] 5 mg PO BID 06/06/20 06/06/20 Unknown History Calcium Carb/Magnesium Hydrox 500 mg PO QDAY 06/06/20 06/06/20 Unknown History [Antacid 1000-200 mg Tab Chew] Cholecalciferol (Vitamin D3) 2,000 unit PO QDAY 06/06/20 06/06/20 Unknown History [Vitamin D3 2,000 UNIT CAP] Dextrose/Dextrin/Maltose 24 gm PO ONCE 06/06/20 06/06/20 Unknown History [Insta-Glucose Gel] Diclofenac 1% [Diclofenac 1% 100 gm TP QDAY 06/06/20 06/06/20 Unknown History topical gel] Dicyclomine [Bentyl] 10 mg PO TID 06/06/20 06/06/20 Unknown History Docusate Sodium [Colace] 100 mg PO BID PRN 06/06/20 06/06/20 Unknown History Furosemide [Lasix] 40 mg PO QDAY 06/06/20 06/06/20 Unknown History Insulin Lispro [Insulin Lispro 10 unit SQ TID 06/06/20 06/06/20 Unknown History Kwikpen U-100] Magnesium Citrate [Citroma] 296 ml PO QDAY 06/06/20 06/06/20 Unknown History Melatonin [Melatonin 3MG TAB] 6 mg PO QHS 06/06/20 06/06/20 Unknown History Oxycodone HCl/Acetaminophen 1 each PO QDAY 06/06/20 06/06/20 Unknown History [Oxycodone-Acetaminophen 10-325] Pantoprazole [Protonix] 40 mg PO QDAY 06/06/20 06/06/20 Unknown History Pioglitazone HCl [Actos] 30 mg PO QDAY 06/06/20 06/06/20 Unknown History Polyethylene Glycol 3350 [Gavilax] 10 gm PO QDAY 06/06/20 06/06/20 Unknown History Pravastatin Sodium [Pravastatin] 10 mg PO QHS 06/06/20 06/06/20 Unknown History Tamsulosin [Flomax] 0.4 mg PO QDAY 06/06/20 06/06/20 Unknown History allopurinoL [Zyloprim] 100 mg PO QDAY 06/06/20 06/06/20 Unknown History lisinopriL [Lisinopril] 20 mg PO QDAY 06/06/20 06/06/20 Unknown History Active Medications: Generic Name Dose Route Start Last Admin Trade Name Freq PRN Reason Stop Dose Admin Acetaminophen 650 mg 06/06/20 15:00 Acetaminophen 325 Mg Tab PO Q6H PRN Pain, Mild (1-3) Albuterol 2.5 mg 06/06/20 15:00 Albuterol 2.5 Mg/3 Ml Nebu IH Q3HRT PRN Shortness Of Breath Allopurinol 100 mg 06/07/20 10:00 06/08/20 10:56 Allopurinol 100 Mg Tab PO Not Given QDAY [facility] Calcium Carbonate/Glycine 500 mg 06/07/20 10:00 06/08/20 10:56 Calcium Carbonate 500 Mg Tab Chew PO Not Given QDAY [facility] Cholecalciferol 2,000 unit 06/07/20 10:00 06/08/20 10:56 Cholecalciferol (Vit D3) 1000 Unit (25 Mcg) Tab PO Not Given QDAY [facility] Diclofenac Sodium 20 applic 06/07/20 10:00 06/08/20 10:56 Diclofenac Sodium 1% Topical Gel 100 Gm TP 20 applic QDAY [facility]LENA Administration Dicyclomine HCl 10 mg 06/06/20 20:00 06/09/20 08:26 Dicyclomine 10 Mg Cap PO Not Given TID YELENA Docusate Sodium 100 mg 06/06/20 15:57 Docusate Sodium 100 Mg Cap PO BID PRN Constipation Famotidine 20 mg 06/08/20 11:00 06/08/20 10:56 Famotidine 20 Mg/2 Ml Inj IV 20 mg QDAY YELENA Administration Heparin Sodium (Porcine) 5,000 unit 06/07/20 22:00 06/08/20 21:15 Heparin 5,000 Unit/1 Ml Vial SUB-Q 5,000 unit Q12HR YELENA Administration Hydromorphone HCl 0.25 mg 06/06/20 15:00 06/08/20 21:09 Hydromorphone 1 Mg/1 Ml Inj IV 0.25 mg Q4H PRN Administration Pain, Moderate (4-6) Dopamine HCl/Dextrose 800 mg in 250 mls @ 2.885 mls/hr 06/06/20 12:00 06/08/20 13:00 Intropin Drip 800 Mg/D5w 250 Ml IV 06/10/20 02:39 0 mcg/kg/min TITR ONE 0 mls/hr Titration Protocol 2 MCG/KG/MIN NORepinephrine/NS 8 MG-250 ML 8 mg in 250 mls @ 3.75 mls/hr 06/06/20 20:00 06/08/20 14:50 Norepinephrine/Ns 8 Mg-250 Ml (Double Conc) IV 2 mcg/min TITRATE YELENA 3.75 mls/hr Titration Protocol 2 MCG/MIN Vasopressin 20 unit/ Sodium 101 mls @ 9.09 mls/hr 06/07/20 03:00 06/08/20 21:15 Chloride IV 0.03 units/min TITR YELENA 9.09 mls/hr Administration Protocol 0.03 UNITS/MIN Cefepime HCl 2 gm in 100 mls @ 200 mls/hr 06/07/20 22:00 06/08/20 21:16 Cefepime/Ns 2 Gm/100 Ml IV 200 mls/hr Q24HR@2200 YELENA Administration Sodium Bicarbonate 100 meq/ 1,100 mls @ 75 mls/hr 06/07/20 17:00 06/09/20 01:00 Sterile Water IV 75 mls/hr DIRECT YELENA Administration Amiodarone HCl 900 mg/ 500 mls @ 33.333 mls/hr 06/08/20 12:00 06/08/20 18:00 Dextrose IV 0.5 mg/min DIRECT YELENA 16.667 mls/hr Infusion Protocol 1 MG/MIN Magnesium Citrate 300 ml 06/06/20 16:20 Magnesium Citrate 300 Ml Oral Liqd PO QDAY PRN Constipation Pravastatin Sodium 10 mg 06/06/20 22:00 06/08/20 04:48 Pravastatin 20 Mg Tab PO Not Given QHS YELENA Sodium Chloride 10 ml 06/06/20 15:00 06/08/20 10:56 Sodium Chloride 0.9% 10 Ml Flush Syringe IV 10 ml BID YELENA Administration Sodium Chloride 10 ml 06/06/20 15:00 Sodium Chloride 0.9% 10 Ml Flush Syringe IV PRN PRN LINE FLUSH HEART Score - HEART Score Troponin: Troponin T 0.239 ng/mL (0.00-0.029) H* D 06/09/20 08:59
[2020-06-09] MEDS: AMIODARONE 900 MG in DEXTROSE 5% IN WATER 482 ML IV SCH (11:05)
--- NOTE | 2020-06-09 11:27 | Progress Note ---
Assessment and Plan Cultures: Blood culture 06/06/2020 coagulase-negative staph 1 out of 4 Blood culture 06/08/2020 no growth today C. difficile PCR negative SARS-CoV-2 PCR negative Assessment: 80 years old male with history of dementia, CVA, debility, diabetes mellitus, secondary to few hours of unresponsiveness at breakfast at his assisted living facility: #Sepsis with septic shock: Resolved, remarkable improvement, off pressors; source UTI +/- acute diarrhea +/-bacteremia #Coagulase-negative staph bacteremia: 1 out of 4 likely contaminant. #Acute hypoxemic respiratory failure: now on NC O2. CXR clear. SARS-CoV-2 PCR negative. #UTI: with hematuria urine culture not collected., #Diarrhea: ?colitis, C. difficile PCR negative. #Acute encephalopathy: due to sepsis> CT no acute changes. Resolved. #ISAAC: ? from sepsis, not better #RVR A. fib: On amiodarone, cardiology on board #Thrombocytopenia: Monitor platelets, likely due to sepsis Recommendations: -Urine culture not collected -Continue cefepime renally adjusted D2 of 5 -Stop IV vancomycin -F/u blood culture, urine culture -CT abdomen/pelvis when stable -Remove right femoral TLC and Hair catheter as feasible Will follow. Nona Childs MD Infectious Diseases [facility] ([facility]) M [phone] O [phone] Subjective Date of service: 06/09/20 Principal diagnosis: shock Interval history: Patient feeling better, off pressors, on bicarb drip and amiodarone drip. On nasal cannula O2. No fever. Objective - Exam Narrative Exam: General appearance: Alert in NAD on NC O2 Eyes: anicteric sclerae, moist conjunctivae; no lid-lag; PERRLA HENT: Normocephalic, Atraumatic; normal external ears, nares open, oropharynx limited edentulous Neck: supple, tracheal midline, no JVD Lungs: Clear to auscultation bilaterally CV: RRR no murmur Abdomen: Soft, nontender Extremities: no edema, no cyanosis Skin: No rash. Psych: no agitated Neuro: Alert, follows simple commands Right femoral TLC Rectal tube in place with diarrhea Hair catheter in place - Constitutional Vitals: Vital Signs Temp Pulse Resp BP Pulse Ox 98.9 F 84 16 128/63 97 06/09/20 08:00 06/09/20 06:00 06/09/20 06:00 06/09/20 06:00 06/09/20 08:14 Temperature -Last 24 Hours Temperature 98.9 F Temperature 98.8 F Temperature 98.3 F Temperature 98.8 F Temperature 98.4 F - Labs CBC & Chem 7: 06/09/20 04:30 06/09/20 04:30 Labs: Abnormal lab results 06/08/20 06/08/20 06/08/20 Range/Units 11:37 17:57 23:42 RBC (3.65-5.03) M/mm3 Hgb (11.8-15.2) gm/dl Hct (35.5-45.6) % MCV (84-94) fl MCH (28-32) pg Plt Count (140-440) K/mm3 Chloride (98-107) mmol/L Carbon Dioxide (22-30) mmol/L BUN (9-20) mg/dL Creatinine (0.8-1.3) mg/dL Glucose (75-100) mg/dL POC Glucose 118 H 131 H 113 H (70-105) mg/dL Calcium (8.4-10.2) mg/dL Troponin T (0.00-0.029) ng/mL 06/09/20 06/09/20 06/09/20 Range/Units 04:30 04:30 05:40 RBC 2.24 L (3.65-5.03) M/mm3 Hgb 7.4 L (11.8-15.2) gm/dl Hct 21.8 L (35.5-45.6) % MCV 98 H (84-94) fl MCH 33 H (28-32) pg Plt Count 136 L (140-440) K/mm3 Chloride 107.8 H (98-107) mmol/L Carbon Dioxide 21 L (22-30) mmol/L BUN 95 H (9-20) mg/dL Creatinine 3.2 H (0.8-1.3) mg/dL Glucose 114 H (75-100) mg/dL POC Glucose 112 H (70-105) mg/dL Calcium 7.7 L (8.4-10.2) mg/dL Troponin T (0.00-0.029) ng/mL 06/09/20 Range/Units 08:59 RBC (3.65-5.03) M/mm3 Hgb (11.8-15.2) gm/dl Hct (35.5-45.6) % MCV (84-94) fl MCH (28-32) pg Plt Count (140-440) K/mm3 Chloride (98-107) mmol/L Carbon Dioxide (22-30) mmol/L BUN (9-20) mg/dL Creatinine (0.8-1.3) mg/dL Glucose (75-100) mg/dL POC Glucose (70-105) mg/dL Calcium (8.4-10.2) mg/dL Troponin T 0.239 H* D (0.00-0.029) ng/mL
[2020-06-09] MEDS ORDERED: VANCOMYCIN/NS 1 GM/250 ML 1 GM/250 ML BAG IV ONE (12:00)
--- NOTE | 2020-06-09 12:52 | Progress Note ---
Assessment and Plan Pt maintained NSR overnight. He is currently weaned off vasopressors. D/c IV amio and initiate PO lopressor. No systemic AC at this time in regards to AFib in setting of anemia and transient nature of AFib (<24Hr bout). Recommend further eval/management of anemia per primary. F/u CBC in AM. Pt noted to have EF 15-20% with LBBB on ECG. Unknown etiology or chronicity of these diagnoses. No current clinical evidence of acutely decompensated HF. Per [place] records, pt saw [place] cardiology in 1998 and underwent LHC which did not show any significant findings. Will likely proceed with conservative cardiac management given pt's advanced age, dementia and multiple co-morbidities. Consider stress testing for further evaluation of newly diagnosed CMP and LBBB once medically stabilized - can be done as OP. No ACEI/ARB in setting of renal failure. F/u BMP in AM. Follow nephrology recs. Pt may tx from CCU to telemetry from cardiology standpoint. The patient has been seen in conjunction with Dr. Rosa who agrees with the assessment and plan of care. - Patient Problems (1) Altered mental status Current Visit: Yes Status: Acute (2) Sepsis Current Visit: Yes Status: Acute (3) Septic shock Current Visit: Yes Status: Acute (4) Urinary tract infection Current Visit: Yes Status: Acute Qualifiers: Encounter type: initial encounter (5) Renal failure Current Visit: Yes Status: Acute (6) Diarrhea Current Visit: Yes Status: Acute (7) Anemia Current Visit: Yes Status: Acute (8) Cardiomyopathy Current Visit: Yes Status: Chronic (9) LBBB (left bundle branch block) Current Visit: Yes Status: Acute (10) Transient atrial fibrillation Current Visit: Yes Status: Acute (11) Dementia Current Visit: Yes Status: Chronic (12) History of CVA (cerebrovascular accident) Current Visit: Yes Status: Chronic (13) Diabetes Current Visit: Yes Status: Chronic Subjective Date of service: 06/09/20 Principal diagnosis: shock Interval history: pt resting in bed, NAD, pleasantly confused. tele reviewed - in SR HR 90s. amio gtt infusing. Objective Last Vital Signs Temp 98.7 F 06/09/20 12:00 Pulse 89 06/09/20 12:40 Resp 16 06/09/20 12:40 BP 120/59 06/09/20 12:40 Pulse Ox 97 04/08/21 12:40 - Physical Examination General: No Apparent Distress HEENT: Positive: PERRL, Normocephaly, Mucus Membranes Moist Neck: Positive: neck supple, trachea midline Cardiac: Positive: Reg Rate and Rhythm, S1/S2 Lungs: Positive: Decreased Breath Sounds Neuro: Positive: Other (confused) Abdomen: Negative: Tender Skin: Negative: Rash Musculoskeletal: No Pain Extremities: Absent: edema - Labs and Meds CBC 06/09/20 Range/Units 04:30 WBC 9.2 (4.5-11.0) K/mm3 RBC 2.24 L (3.65-5.03) M/mm3 Hgb 7.4 L (11.8-15.2) gm/dl Hct 21.8 L (35.5-45.6) % Plt Count 136 L (140-440) K/mm3 Comprehensive Metabolic Panel 06/09/20 Range/Units 04:30 Sodium 142 (137-145) mmol/L Potassium 4.2 (3.6-5.0) mmol/L Chloride 107.8 H (98-107) mmol/L Carbon Dioxide 21 L (22-30) mmol/L BUN 95 H (9-20) mg/dL Creatinine 3.2 H (0.8-1.3) mg/dL Glucose 114 H (75-100) mg/dL Calcium 7.7 L (8.4-10.2) mg/dL - Imaging and Cardiology EKG: report reviewed, image reviewed Echo: report reviewed (06/06/2020 showed EF 15-20%, LV borderline dilated, no significant valvular abnormalities. ) Cardiac cath: report reviewed (1998 - no significant findings) - Telemetry EKG Rhythm: Sinus Rhythm - EKG Sinus rhythms and dysrhythmias: sinus rhythm AV and intraventricular conduction: left bundle branch block
[2020-06-09 14:39] LABS: Creatine Kinase MB 12.1 ng/mL (0.0-4.0)
--- NOTE | 2020-06-09 15:31 | Progress Note ---
Assessment and Plan Assessment and plan: -CCM, infectious disease, nephrology, cardiology consulted, appreciate recommendations -s/p Vasopressor support with dopamine, Levophed, vasopressin -S/p 4.3 L normal saline bolus, 6L LR bolus -Bicarbonate drip -Antibiotic therapy per infectious disease -Blood cultures x4, Coag negative staph coccus 1/4 bottles -Urinalysis shows urinary tract infection -C. difficile negative -Droplet/contact isolation, COVID-19 PCR negative -Trend BMP, CBC -S/p amiodarone bolus per [facility], on amidorone gtt GI/DVT prophylaxis: Protonix, heparin subcu, SCDs to bilateral lower extremities while in bed Disposition: Transfer to floor History Interval history: This is a 80-year-old male who is a resident of assisted living facility with vascular dementia, cerebral sclerosis, debility, diabetes mellitus who presents to the emergency department on 06/06 with complaints of lethargy and diminished cognition as per daughter he developed an episode of unresponsiveness while at breakfast at at his assisted living facility. Patient was found to have a urinary tract infection complicated by sepsis and septic shock, acute kidney injury, toxic metabolic encephalopathy as well as metabolic acidosis. Patient was hypotensive with systolic blood pressures in the 50s and was initiated on vasopressor support in the emergency department. Patient was admitted to the hospital service with consults to nephrology and [facility]. Septic Shock Metabolic encephalopathy Coag negative Staphylococcus 1/4 bottles Urinary tract infection Acute hypoxic respiratory failure Acute kidney injury Metabolic acidosis Diarrhea Dementia Hypertension Anemia 06/07: Patient remains on dopamine, vasopressin and Levophed. Nephrology has started the patient on sodium bicarbonate drip for metabolic acidosis. Infectious disease initiated vancomycin in addition to the cefepime and ordered a C. difficile. 06/08: Patient has gram-positive cocci bacteremia in 1/4 bottles which grew to be coag negative staph coccus and he has repeat blood cultures in progress. Urine culture has no growth to date and he is on IV vancomycin and cefepime. Yesterday we ordered a C. difficile PCR which is pending. Patient had a moment of tachycardia into the 130s and a stat EKG was obtained. Patient was given amiodarone bolus by [facility] and cardiology was consulted. Patient is hyperchloremic today however his metabolic acidosis and BUN/creatinine is slightly improved to 93/3.2 from 100/3.6 and his repeat lactic acid is 1.5. At the time my examination patient was on Levophed at 6, vasopressin 0.03 and dopamine at 6. This morning patient failed his swallow eval and ST evaluation was ordered. Of note patient's echocardiogram shows reduced 15 to 20% with borderline left ventricular hypertrophy. 06/09: This morning his speech evaluation was completed and he has been cleared for mechanical soft diet with thin liquids. Patient complained of right-sided chest pain with radiation to shoulders and a stat EKG cardiac enzymes were ordered. Patient was recultured yesterday and those have no growth to date and his vancomycin was stopped. Infectious disease team recommends removal of Hair catheter when feasible and a CT abdomen/pelvis when stable. Patient has been cleared to transfer to the floor by cardiology and CCM. Hospitalist Physical - Constitutional Vitals: Temp Pulse Resp BP Pulse Ox 98.7 F 90 19 126/68 98 06/09/20 12:00 06/09/20 13:00 06/09/20 13:00 06/09/20 13:00 06/09/20 13:00 General appearance: Present: no acute distress, well-nourished - EENT Eyes: Present: PERRL, EOM intact ENT: poor dentition - Neck Neck: Present: normal ROM - Respiratory Respiratory effort: normal Respiratory: bilateral: CTA - Cardiovascular Heart Sounds: Present: S1 & S2. Absent: systolic murmur, diastolic murmur - Extremities Extremities: no ischemia, pulses intact, pulses symmetrical, No edema, normal temperature, normal color, Full ROM Peripheral Pulses: within normal limits - Abdominal General gastrointestinal: soft, non-tender, non-distended, normal bowel sounds - Integumentary Integumentary: Present: warm, dry - Psychiatric Psychiatric: cooperative - Neurologic Neurologic: CNII-XII intact, no focal deficits, moves all extremities - Allied Health Allied health notes reviewed: nursing, ST, social work, case management HEART Score - HEART Score Troponin: Troponin T 0.230 ng/mL (0.00-0.029) H* 06/09/20 12:57 Results - Labs CBC & Chem 7: 06/09/20 04:30 06/09/20 04:30 Labs: Laboratory Last Values WBC 9.2 K/mm3 (4.5-11.0) 06/09/20 04:30 RBC 2.24 M/mm3 (3.65-5.03) L 06/09/20 04:30 Hgb 7.4 gm/dl (11.8-15.2) L 06/09/20 04:30 Hct 21.8 % (35.5-45.6) L 06/09/20 04:30 MCV 98 fl (84-94) H 06/09/20 04:30 MCH 33 pg (28-32) H 06/09/20 04:30 MCHC 34 % (32-34) 06/09/20 04:30 RDW 14.6 % (13.2-15.2) 06/09/20 04:30 Plt Count 136 K/mm3 (140-440) L 06/09/20 04:30 Lymph % (Auto) 53.7 % (13.4-35.0) H 06/06/20 10:19 [place] % (Auto) Lab Manager 06/07/20 02:51 Eos % (Auto) 1.6 % (0.0-4.3) 06/06/20 10:19 Baso % (Auto) 0.3 % (0.0-1.8) 06/06/20 10:19 Lymph # (Auto) 2.4 K/mm3 (1.2-5.4) 06/06/20 10:19 [place] # (Auto) 0.3 K/mm3 (0.0-0.8) 06/06/20 10:19 Eos # (Auto) 0.1 K/mm3 (0.0-0.4) 06/06/20 10:19 Baso # (Auto) 0.0 K/mm3 (0.0-0.1) 06/06/20 10:19 Add Manual Diff Complete 06/07/20 02:51 Total Counted 100 06/07/20 02:51 Seg Neutrophils % 37.6 % (40.0-70.0) L 06/06/20 10:19 Seg Neuts % (Manual) 66.0 % (40.0-70.0) 06/07/20 02:51 Band Neutrophils % 14.0 % 06/07/20 02:51 Lymphocytes % (Manual) 8.0 % (13.4-35.0) L 06/07/20 02:51 Monocytes % (Manual) 12.0 % (0.0-7.3) H 06/07/20 02:51 Nucleated RBC % Not Reportable 06/07/20 02:51 Seg Neutrophils # 1.7 K/mm3 (1.8-7.7) L 06/06/20 10:19 Seg Neutrophils # Man 3.5 K/mm3 (1.8-7.7) 06/07/20 02:51 Band Neutrophils # 0.7 K/mm3 06/07/20 02:51 Lymphocytes # (Manual) 0.4 K/mm3 (1.2-5.4) L 06/07/20 02:51 Abs React Lymphs (Man) 0.0 K/mm3 06/07/20 02:51 Monocytes # (Manual) 0.6 K/mm3 (0.0-0.8) 06/07/20 02:51 Eosinophils # (Manual) 0.0 K/mm3 (0.0-0.4) 06/07/20 02:51 Basophils # (Manual) 0.0 K/mm3 (0.0-0.1) 06/07/20 02:51 Metamyelocytes # 0.0 K/mm3 06/07/20 02:51 Myelocytes # 0.0 K/mm3 06/07/20 02:51 Promyelocytes # 0.0 K/mm3 06/07/20 02:51 Blast Cells # 0.0 K/mm3 06/07/20 02:51 WBC Morphology Not Reportable 06/07/20 02:51 Hypersegmented Neuts Not Reportable 06/07/20 02:51 Hyposegmented Neuts Not Reportable 06/07/20 02:51 Hypogranular Neuts Not Reportable 06/07/20 02:51 Smudge Cells Not Reportable 06/07/20 02:51 Toxic Granulation Not Reportable 06/07/20 02:51 Toxic Vacuolation Not Reportable 06/07/20 02:51 Dohle Bodies Not Reportable 06/07/20 02:51 Pelger-Huet Anomaly Not Reportable 06/07/20 02:51 Denys Rods Not Reportable 06/07/20 02:51 Platelet Estimate Consistent w auto 06/07/20 02:51 Clumped Platelets Not Reportable 06/07/20 02:51 Plt Clumps, EDTA Not Reportable 06/07/20 02:51 Large Platelets Not Reportable 06/07/20 02:51 Giant Platelets Not Reportable 06/07/20 02:51 Platelet Satelliting Not Reportable 06/07/20 02:51 Plt Morphology Comment Not Reportable 06/07/20 02:51 RBC Morphology Normal 06/07/20 02:51 Dimorphic RBCs Not Reportable 06/07/20 02:51 Polychromasia Not Reportable 06/07/20 02:51 Hypochromasia Not Reportable 06/07/20 02:51 Poikilocytosis Not Reportable 06/07/20 02:51 Anisocytosis Not Reportable 06/07/20 02:51 Microcytosis Not Reportable 06/07/20 02:51 Macrocytosis Not Reportable 06/07/20 02:51 Spherocytes Not Reportable 06/07/20 02:51 Pappenheimer Bodies Not Reportable 06/07/20 02:51 Sickle Cells Not Reportable 06/07/20 02:51 Target Cells Not Reportable 06/07/20 02:51 Tear Drop Cells Not Reportable 06/07/20 02:51 Ovalocytes Not Reportable 06/07/20 02:51 Helmet Cells Not Reportable 06/07/20 02:51 [place] Bodies Not Reportable 06/07/20 02:51 [place] Rings Not Reportable 06/07/20 02:51 Dom Cells Not Reportable 06/07/20 02:51 Bite Cells Not Reportable 06/07/20 02:51 Crenated Cell Not Reportable 06/07/20 02:51 Elliptocytes Not Reportable 06/07/20 02:51 Acanthocytes (Spur) Not Reportable 06/07/20 02:51 Rouleaux Not Reportable 06/07/20 02:51 Hemoglobin C Crystals Not Reportable 06/07/20 02:51 Schistocytes Not Reportable 06/07/20 02:51 Malaria parasites Not Reportable 06/07/20 02:51 Chance Bodies Not Reportable 06/07/20 02:51 Hem Pathologist Commnt No 06/07/20 02:51 PT 16.3 Sec. (12.2-14.9) H 06/06/20 10:19 INR 1.33 (0.87-1.13) H 06/06/20 10:19 APTT 31.6 Sec. (24.2-36.6) 06/06/20 10:19 ABG pH 7.329 pH Units (7.350-7.450) L 06/06/20 11:18 ABG pCO2 27.8 mm Hg 06/06/20 11:18 ABG pO2 258.1 mm Hg (80.0-90.0) H 06/06/20 11:18 ABG HCO3 14.3 mmol/L (20.0-26.0) L 06/06/20 11:18 ABG O2 Saturation 99.4 % (95.0-99.0) H 06/06/20 11:18 ABG O2 Content 13.2 (0.0-44) 06/06/20 11:18 ABG Base Excess -10.5 mmol/L (-2.0-3.0) L 06/06/20 11:18 ABG Hemoglobin 9.1 gm/dl (14.0-18.0) L 06/06/20 11:18 ABG Carboxyhemoglobin 1.3 % (0.0-5.0) 06/06/20 11:18 ABG Methemoglobin Not Reportable 06/06/20 11:18 VBG pH 7.438 (7.320-7.420) H 06/06/20 10:19 Oxyhemoglobin 98.2 % (95.0-99.0) 06/06/20 11:18 FiO2 21 % 06/06/20 11:18 Sodium 142 mmol/L (137-145) 06/09/20 04:30 Potassium 4.2 mmol/L (3.6-5.0) 06/09/20 04:30 Chloride 107.8 mmol/L (98-107) H 06/09/20 04:30 Carbon Dioxide 21 mmol/L (22-30) L 06/09/20 04:30 Anion Gap 17 mmol/L 06/09/20 04:30 BUN 95 mg/dL (9-20) H 06/09/20 04:30 Creatinine 3.2 mg/dL (0.8-1.3) H 06/09/20 04:30 Estimated GFR 23 ml/min 06/09/20 04:30 BUN/Creatinine Ratio 30 % 06/09/20 04:30 Glucose 114 mg/dL (75-100) H 06/09/20 04:30 POC Glucose 89 mg/dL (70-105) 06/09/20 11:48 Lactic Acid 1.50 mmol/L (0.7-2.0) 06/08/20 05:15 Calcium 7.7 mg/dL (8.4-10.2) L 06/09/20 04:30 Total Bilirubin 0.40 mg/dL (0.1-1.2) 06/07/20 02:51 AST 135 units/L (5-40) H 06/07/20 02:51 ALT 70 units/L (7-56) H 06/07/20 02:51 Alkaline Phosphatase 82 units/L (35-129) 06/07/20 02:51 Ammonia 64.0 umol/L (25-60) H 06/06/20 10:19 Total Creatine Kinase 1212 units/L (55-170) H 06/09/20 12:57 CK-MB (CK-2) 12.1 ng/mL (0.0-4.0) H 06/09/20 12:57 CK-MB (CK-2) Rel Index 0.9 (0-4) 06/09/20 12:57 Troponin T 0.230 ng/mL (0.00-0.029) H* 06/09/20 12:57 Total Protein 6.2 g/dL (6.3-8.2) L 06/07/20 02:51 Albumin 3.2 g/dL (3.9-5) L 06/07/20 02:51 Albumin/Globulin Ratio 1.1 % 06/07/20 02:51 Triglycerides 103 mg/dL (2-149) 06/06/20 10:19 Cholesterol 84 mg/dL (50-199) 06/06/20 10:19 LDL Cholesterol Direct 28 mg/dL (50-130) L 06/06/20 10:19 HDL Cholesterol 44 mg/dL (40-59) 06/06/20 10:19 Cholesterol/HDL Ratio 1.90 % 06/06/20 10:19 TSH 4.440 mlU/mL (0.270-4.200) H 06/06/20 10:19 Free T4 1.55 ng/dL (0.76-1.46) H 06/06/20 10:19 PTH Intact 271.9 pg/mL (15-65) H 06/08/20 05:15 Urine Color Yellow (Yellow) 06/06/20 14:02 Urine Turbidity Cloudy (Clear) 06/06/20 14:02 Urine pH 6.0 (5.0-7.0) 06/06/20 14:02 Ur Specific Page 1.013 (1.003-1.030) 06/06/20 14:02 Urine Protein 100 mg/dl mg/dL (Negative) 06/06/20 14:02 Urine Glucose (UA) Neg mg/dL (Negative) 06/06/20 14:02 Urine Ketones Neg mg/dL (Negative) 06/06/20 14:02 Urine Blood Sm (Negative) 06/06/20 14:02 Urine Nitrite Neg (Negative) 06/06/20 14:02 Urine Bilirubin Neg (Negative) 06/06/20 14:02 Urine Urobilinogen < 2.0 mg/dL (<2.0) 06/06/20 14:02 Ur Leukocyte Esterase Lg (Negative) 06/06/20 14:02 Urine WBC (Auto) > 182.0 /HPF (0.0-6.0) H 06/06/20 14:02 Urine RBC (Auto) 55.0 /HPF (0.0-6.0) 06/06/20 14:02 U Epithel Cells (Auto) 1.0 /HPF (0-13.0) 06/06/20 14:02 Urine WBC Clumps 2+ /HPF 06/06/20 14:02 Urine Creatinine 57.0 mg/dL (0.1-20.0) H 06/06/20 21:05 Urine Sodium 85 mmol/L 06/06/20 21:05 Random Vancomycin 9.8 ug/mL (0-40.0) 06/09/20 04:30 Urine Opiates Screen Presumptive negative 06/06/20 14:02 Urine Methadone Screen Presumptive negative 06/06/20 14:02 Ur Barbiturates Screen Presumptive negative 06/06/20 14:02 Ur Phencyclidine Scrn Presumptive negative 06/06/20 14:02 Ur Amphetamines Screen Presumptive negative 06/06/20 14:02 U Benzodiazepines Scrn Presumptive negative 06/06/20 14:02 Urine Cocaine Screen Presumptive negative 06/06/20 14:02 U Marijuana (THC) Screen Presumptive negative 06/06/20 14:02 Drugs of Abuse Note Disclamer 06/06/20 14:02 Plasma/Serum Alcohol < 0.01 % (0-0.07) 06/06/20 10:19 C. difficile Tox (PCR) Negative (Negative) 06/08/20 Unknown Coronavirus (PCR) Negative (Negative) 06/07/20 09:15 Blood Type O POSITIVE 06/06/20 14:47 Antibody Screen Negative 06/06/20 14:47 Microbiology: Microbiology 06/06/20 10:19 Peripheral/Venous Blood Culture - Preliminary NO GROWTH AFTER 72 HOURS 06/07/20 11:10 Urine,Catheterized - Indwelling Catheter Urine Culture - Final NO GROWTH AFTER 48 HOURS 06/08/20 10:11 Peripheral/Venous Blood Culture - Preliminary NO GROWTH AFTER 24 HOURS 06/08/20 10:11 Peripheral/Venous Blood Culture - Preliminary NO GROWTH AFTER 24 HOURS 06/06/20 10:19 Peripheral/Venous Blood Culture - Preliminary Coag Negative Staphylococcus Hair/IV: Voiding Method Indwelling Catheter Active Medications - Current Medications Current Medications: Generic Name Dose Route Start Last Admin Trade Name Freq PRN Reason Stop Dose Admin Acetaminophen 650 mg 06/06/20 15:00 Acetaminophen 325 Mg Tab PO Q6H PRN Pain, Mild (1-3) Albuterol 2.5 mg 06/06/20 15:00 Albuterol 2.5 Mg/3 Ml Nebu IH Q3HRT PRN Shortness Of Breath Allopurinol 100 mg 06/07/20 10:00 06/09/20 09:59 Allopurinol 100 Mg Tab PO Not Given QDAY [facility] Calcium Carbonate/Glycine 500 mg 06/07/20 10:00 06/09/20 09:59 Calcium Carbonate 500 Mg Tab Chew PO Not Given QDAY [facility] Cholecalciferol 2,000 unit 06/07/20 10:00 06/09/20 09:59 Cholecalciferol (Vit D3) 1000 Unit (25 Mcg) Tab PO Not Given QDAY [facility] Diclofenac Sodium 20 applic 06/07/20 10:00 06/09/20 09:59 Diclofenac Sodium 1% Topical Gel 100 Gm TP 20 applic QDAY YELENA Administration Dicyclomine HCl 10 mg 06/06/20 20:00 06/09/20 14:33 Dicyclomine 10 Mg Cap PO 10 mg TID YELENA Administration Docusate Sodium 100 mg 06/06/20 15:57 Docusate Sodium 100 Mg Cap PO BID PRN Constipation Famotidine 20 mg 06/08/20 11:00 06/09/20 09:59 Famotidine 20 Mg/2 Ml Inj IV 20 mg QDAY YELENA Administration Heparin Sodium (Porcine) 5,000 unit 06/07/20 22:00 06/09/20 09:59 Heparin 5,000 Unit/1 Ml Vial SUB-Q 5,000 unit Q12HR YELENA Administration Hydromorphone HCl 0.25 mg 06/06/20 15:00 06/08/20 21:09 Hydromorphone 1 Mg/1 Ml Inj IV 0.25 mg Q4H PRN Administration Pain, Moderate (4-6) Dopamine HCl/Dextrose 800 mg in 250 mls @ 2.885 mls/hr 06/06/20 12:00 06/08/20 13:00 Intropin Drip 800 Mg/D5w 250 Ml IV 06/10/20 02:39 0 mcg/kg/min TITR ONE 0 mls/hr Titration Protocol 2 MCG/KG/MIN NORepinephrine/NS 8 MG-250 ML 8 mg in 250 mls @ 3.75 mls/hr 06/06/20 20:00 06/08/20 14:50 Norepinephrine/Ns 8 Mg-250 Ml (Double Conc) IV 2 mcg/min TITRATE YELENA 3.75 mls/hr Titration Protocol 2 MCG/MIN Vasopressin 20 unit/ Sodium 101 mls @ 9.09 mls/hr 06/07/20 03:00 06/09/20 07:40 Chloride IV 0 units/min TITR YELENA 0 mls/hr Titration Protocol 0.03 UNITS/MIN Cefepime HCl 2 gm in 100 mls @ 200 mls/hr 06/07/20 22:00 06/08/20 21:16 Cefepime/Ns 2 Gm/100 Ml IV 200 mls/hr Q24HR@2200 YELENA Administration Sodium Bicarbonate 100 meq/ 1,100 mls @ 75 mls/hr 06/07/20 17:00 06/09/20 01:00 Sterile Water IV 75 mls/hr DIRECT YELENA Administration Magnesium Citrate 300 ml 06/06/20 16:20 Magnesium Citrate 300 Ml Oral Liqd PO QDAY PRN Constipation Metoprolol Tartrate 25 mg 06/09/20 22:00 Metoprolol Tartrate 25 Mg Tab PO BID YELENA Pravastatin Sodium 10 mg 06/06/20 22:00 06/08/20 04:48 Pravastatin 20 Mg Tab PO Not Given QHS YELENA Sodium Chloride 10 ml 06/06/20 15:00 06/09/20 09:59 Sodium Chloride 0.9% 10 Ml Flush Syringe IV 10 ml BID YELENA Administration Sodium Chloride 10 ml 06/06/20 15:00 Sodium Chloride 0.9% 10 Ml Flush Syringe IV PRN PRN LINE FLUSH Nutrition/Malnutrition Assess - Dietary Evaluation Nutrition/Malnutrition Findings: Nutrition Notes Start: 06/08/20 11:43 Freq: Status: Active Protocol: Document 06/08/20 11:43 CW (Rec: 06/08/20 11:54 CW [id number]) Nutrition Notes 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 Current Diet NPO Labs/Tests K 4.9 BG 165 BUN 93 Cr 3.2 Pertinent Medications Levophed, dopamine, vasopressin LR 1L Cefepime Height 5 ft 8 in Weight 76.9 kg [place] Body Weight (kg) 70.00 BMI 25.7 Weight Status Appropriate Subjective/Other Information RN screen for skin risk. Mayur score of 10. Pt has a stage 1 pressure ulcer to sacrum. Pt possibly s/p CVA. PT failed bedside swallow test . ST to evaluate. Recommend alternative source of feeding once medically feasible. Per MD feeding not advisable at this time. Pt has some diarrhea likely r/t ABTx. Burn Absent Trauma Absent GI Symptoms Diarrhea Difficulty In Swallowing Skin Integrity/Comment Stage 1 pressure ulcer Current % PO Negligible Minimum of two criteria No physical signs of malnutrition #2 Nutrition Diagnosis Increased nutrient needs ( specify in comment below) Comments: protein Etiology wound healing As Evidenced by Signs and Symptoms stage 1 pressure ulcer to sacrum #1 Nutrition Diagnosis Inadequate oral intake Etiology dysphagia As Evidenced by Signs and Symptoms pt recently failed beside swallow test Is patient on ventilator? No Is Patient Ambulatory and/or Out of Bed Yes REE-([facility]. Donna-ambulatory/OOB) [ [id number] [id number]] Calculation Used for Recommendations [facility] Additional Notes protein needs: 62 - 153g (0.8 - 1.2g/kgBW for ISAAC) fluid needs: 1 ml/kcal Nutrition Intervention Change Diet Order: Initiate TF when medically feasible Nutrition Support: Nepro at 40 ml/hr with a free water flush of 175 ml q4h. Kcal 1,728 Protein (gm) 78 Fluid (mL) 698 Goal #1 diet advancment when medically feasible Goal #2 wound healing Anticipated Discharge Needs: unable to determine at this time Follow-Up By: 06/10/20 Additional Comments F/U diet advancement, speech eval
[2020-06-09] MEDS: PRAVASTATIN 20 MG TAB PO SCH (22:23)
[2020-06-09] MEDS: METOPROLOL TARTRATE 25 MG TAB PO SCH (22:23)
[2020-06-09] MEDS: CEFEPIME/NS 2 GM/100 ML 2 GM/100 ML BAG IV SCH (22:24)
[2020-06-10 05:29] LABS: Hematocrit 22.6 % (35.5-45.6); Hemoglobin 7.4 gm/dl (11.8-15.2); Mean Corpuscular HGB Conc 33 % (32-34); Mean Corpuscular Volume 98 fl (84-94); Platelet Count 146 K/mm3 (140-440); Red Blood Count 2.31 M/mm3 (3.65-5.03); Red Cell Distribution Width 14.6 % (13.2-15.2)
[2020-06-10 05:44] LABS: Calcium 7.7 mg/dL (8.4-10.2)
[2020-06-10] MEDS: PRAVASTATIN 20 MG TAB PO SCH ×2 (08:12→21:33)
--- NOTE | 2020-06-10 08:17 | Progress Note ---
Assessment and Plan 1. Acute kidney injury: Vasomotor ISAAC in the setting of shock. Renal US ordered negative for hydro. Baseline renal function is unknown. Monitor renal function. Creatinine level is slightly better today. Avoid nephrotoxic agents. Meds dosage based on GFR. Monitor for CLINICAL DIETETIC TECHNICIAN needs. 2. FEN: Hyperkalemia, improved, monitor. Anion-gap metabolic acidosis, improved, monitor. Stop IV fluids due to edema. Monitor lytes and volume status. 3. Sepsis with shock: Currently off pressors. Monitor BP. 4. UTI: Abx per ID. 5. Acute hypoxemic respiratory failure: NC O2. CXR clear. COVID test negative. 6. Diarrhea: ?Colitis. C.diff negative. 7. R kidney mass: Further testing depends on clinical course. 8. Metabolic encephalopathy: Monitor. 9. H/o Dementia: Supportive care. 10. H/o HTN: Monitor BP. 11. Anemia, POA: Monitor. Subjective: Patient was seen and examined at the bedside. RN at the bedside. Objective: General appearance: well-developed, appears stated age, not in distress HEENT: ATNC Neck: trachea midline Respiratory: ctab Heart: regular, S1S2, no murmur Gastrointestinal: soft, normoactive bowel sounds, not tender Integumentary: no rash, warm and dry Ext: no edema Neurologic: alert, able to tell his name, able to move extremities Ext: edema of all 4 extremities : Hair catheter Subjective Date of service: 06/10/20 Principal diagnosis: shock Objective - Vital Signs Vital signs: Vital Signs - 12hr 06/09/20 06/09/20 06/09/20 20:20 20:30 22:05 Temperature 98.3 F Pulse Rate 97 H 94 H 98 H Respiratory 20 18 18 Rate Blood Pressure 132/70 132/70 113/70 Blood Pressure [Left] O2 Sat by Pulse 94 93 98 Oximetry 06/09/20 06/10/20 06/10/20 22:23 00:00 02:48 Temperature 97.3 F L Pulse Rate 100 H 98 H 85 Respiratory Rate Blood Pressure 132/70 Blood Pressure 135/70 [Left] O2 Sat by Pulse Oximetry 06/10/20 03:49 Temperature 98.9 F Pulse Rate 89 Respiratory 19 Rate Blood Pressure 135/68 Blood Pressure [Left] O2 Sat by Pulse 99 Oximetry - Lab 06/10/20 04:22 06/10/20 04:22 Most recent lab results ABG pH 7.329 pH Units (7.350-7.450) L 06/06/20 11:18 ABG pCO2 27.8 mm Hg 06/06/20 11:18 ABG pO2 258.1 mm Hg (80.0-90.0) H 06/06/20 11:18 ABG HCO3 14.3 mmol/L (20.0-26.0) L 06/06/20 11:18 ABG O2 Saturation 99.4 % (95.0-99.0) H 06/06/20 11:18 Calcium 7.7 mg/dL (8.4-10.2) L 06/10/20 04:22 Urine Creatinine 57.0 mg/dL (0.1-20.0) H 06/06/20 21:05 Urine Sodium 85 mmol/L 06/06/20 21:05 Medications & Allergies - Medications Allergies/Adverse Reactions: Allergies No Known Allergies Allergy (Verified 06/06/20 15:21) Home Medications: Home Medications Medication Instructions Recorded Confirmed Last Taken Type Amlodipine Besylate [Norvasc] 5 mg PO QDAY 06/06/20 06/06/20 Unknown History Bisacodyl [Women's Gentle Laxative] 5 mg PO BID 06/06/20 06/06/20 Unknown History Calcium Carb/Magnesium Hydrox 500 mg PO QDAY 06/06/20 06/06/20 Unknown History [Antacid 1000-200 mg Tab Chew] Cholecalciferol (Vitamin D3) 2,000 unit PO QDAY 06/06/20 06/06/20 Unknown History [Vitamin D3 2,000 UNIT CAP] Dextrose/Dextrin/Maltose 24 gm PO ONCE 06/06/20 06/06/20 Unknown History [Insta-Glucose Gel] Diclofenac 1% [Diclofenac 1% 100 gm TP QDAY 06/06/20 06/06/20 Unknown History topical gel] Dicyclomine [Bentyl] 10 mg PO TID 06/06/20 06/06/20 Unknown History Docusate Sodium [Colace] 100 mg PO BID PRN 06/06/20 06/06/20 Unknown History Furosemide [Lasix] 40 mg PO QDAY 06/06/20 06/06/20 Unknown History Insulin Lispro [Insulin Lispro 10 unit SQ TID 06/06/20 06/06/20 Unknown History Kwikpen U-100] Magnesium Citrate [Citroma] 296 ml PO QDAY 06/06/20 06/06/20 Unknown History Melatonin [Melatonin 3MG TAB] 6 mg PO QHS 06/06/20 06/06/20 Unknown History Oxycodone HCl/Acetaminophen 1 each PO QDAY 06/06/20 06/06/20 Unknown History [Oxycodone-Acetaminophen 10-325] Pantoprazole [Protonix] 40 mg PO QDAY 06/06/20 06/06/20 Unknown History Pioglitazone HCl [Actos] 30 mg PO QDAY 06/06/20 06/06/20 Unknown History Polyethylene Glycol 3350 [Gavilax] 10 gm PO QDAY 06/06/20 06/06/20 Unknown History Pravastatin Sodium [Pravastatin] 10 mg PO QHS 06/06/20 06/06/20 Unknown History Tamsulosin [Flomax] 0.4 mg PO QDAY 06/06/20 06/06/20 Unknown History allopurinoL [Zyloprim] 100 mg PO QDAY 06/06/20 06/06/20 Unknown History lisinopriL [Lisinopril] 20 mg PO QDAY 06/06/20 06/06/20 Unknown History Active Medications: Generic Name Dose Route Start Last Admin Trade Name Freq PRN Reason Stop Dose Admin Acetaminophen 650 mg 06/06/20 15:00 Acetaminophen 325 Mg Tab PO Q6H PRN Pain, Mild (1-3) Albuterol 2.5 mg 06/06/20 15:00 Albuterol 2.5 Mg/3 Ml Nebu IH Q3HRT PRN Shortness Of Breath Allopurinol 100 mg 06/07/20 10:00 06/09/20 09:59 Allopurinol 100 Mg Tab PO Not Given QDAY [facility] Calcium Carbonate/Glycine 500 mg 06/07/20 10:00 06/09/20 09:59 Calcium Carbonate 500 Mg Tab Chew PO Not Given QDAY [facility] Cholecalciferol 2,000 unit 06/07/20 10:00 06/09/20 09:59 Cholecalciferol (Vit D3) 1000 Unit (25 Mcg) Tab PO Not Given QDAY [facility] Diclofenac Sodium 20 applic 06/07/20 10:00 06/09/20 09:59 Diclofenac Sodium 1% Topical Gel 100 Gm TP 20 applic QDAY YELENA Administration Dicyclomine HCl 10 mg 06/06/20 20:00 06/09/20 22:22 Dicyclomine 10 Mg Cap PO 10 mg TID YELENA Administration Docusate Sodium 100 mg 06/06/20 15:57 Docusate Sodium 100 Mg Cap PO BID PRN Constipation Famotidine 20 mg 06/08/20 11:00 06/09/20 09:59 Famotidine 20 Mg/2 Ml Inj IV 20 mg QDAY YELENA Administration Heparin Sodium (Porcine) 5,000 unit 06/07/20 22:00 06/09/20 22:22 Heparin 5,000 Unit/1 Ml Vial SUB-Q 5,000 unit Q12HR YELENA Administration Cefepime HCl 2 gm in 100 mls @ 200 mls/hr 06/07/20 22:00 06/09/20 22:24 Cefepime/Ns 2 Gm/100 Ml IV 200 mls/hr Q24HR@2200 YELENA Administration Sodium Bicarbonate 100 meq/ 1,100 mls @ 75 mls/hr 06/07/20 17:00 06/09/20 17:55 Sterile Water IV 75 mls/hr DIRECT YELENA Administration Magnesium Citrate 300 ml 06/06/20 16:20 Magnesium Citrate 300 Ml Oral Liqd PO QDAY PRN Constipation Metoprolol Tartrate 25 mg 06/09/20 22:00 06/09/20 22:23 Metoprolol Tartrate 25 Mg Tab PO 25 mg BID YELENA Administration Pravastatin Sodium 10 mg 06/06/20 22:00 06/10/20 08:12 Pravastatin 20 Mg Tab PO Not Given QHS YELENA Sodium Chloride 10 ml 06/06/20 15:00 06/10/20 08:12 Sodium Chloride 0.9% 10 Ml Flush Syringe IV Not Given BID YELENA Sodium Chloride 10 ml 06/06/20 15:00 Sodium Chloride 0.9% 10 Ml Flush Syringe IV PRN PRN LINE FLUSH
--- NOTE | 2020-06-10 09:20 | Progress Note ---
Assessment and Plan Assessment and plan: This is a 80-year-old male who is a resident of assisted living facility with vascular dementia, cerebral sclerosis, debility, diabetes mellitus who presents to the emergency department on 06/06 with complaints of lethargy and diminished cognition as per daughter he developed an episode of unresponsiveness while at breakfast at at his assisted living facility. Patient was found to have a urinary tract infection complicated by sepsis and septic shock, acute kidney injury, toxic metabolic encephalopathy as well as metabolic acidosis. Patient was hypotensive with systolic blood pressures in the 50s and was initiated on vasopressor support in the emergency department. Patient was admitted to the [facility] service with consults to nephrology and [facility]. Septic Shock Metabolic encephalopathy Coag negative Staphylococcus 03/07 bottles Urinary tract infection Acute hypoxic respiratory failure Acute kidney injury Metabolic acidosis Diarrhea Dementia Hypertension Anemia 06/07: Patient remains on dopamine, vasopressin and Levophed. Nephrology has started the patient on sodium bicarbonate drip for metabolic acidosis. Infectious disease initiated vancomycin in addition to the cefepime and ordered a C. difficile. 06/08: Patient has gram-positive cocci bacteremia in 03/07 bottles which grew to be coag negative staph coccus and he has repeat blood cultures in progress. Urine culture has no growth to date and he is on IV vancomycin and cefepime. Yesterday we ordered a C. difficile PCR which is pending. Patient had a moment of tachycardia into the 130s and a stat EKG was obtained. Patient was given amiodarone bolus by [facility] and cardiology was consulted. Patient is hyperchloremic today however his metabolic acidosis and BUN/creatinine is slightly improved to 93/3.2 from 100/3.6 and his repeat lactic acid is 1.5. At the time my examination patient was on Levophed at 6, vasopressin 0.03 and dopamine at 6. This morning patient failed his swallow eval and ST evaluation was ordered. Of note patient's echocardiogram shows reduced 15 to 20% with borderline left ventricular hypertrophy. 06/09: This morning his speech evaluation was completed and he has been cleared for mechanical soft diet with thin liquids. Patient complained of right-sided chest pain with radiation to shoulders and a stat EKG cardiac enzymes were ordered. Patient was recultured yesterday and those have no growth to date and his vancomycin was stopped. Infectious disease team recommends removal of Hair catheter when feasible and a CT abdomen/pelvis when stable. Patient has been cleared to transfer to the floor by cardiology and [facility]. 06/10/2020; patient is on IV cefepime for sepsis due to UTI day 3 out of 5. Vanc omycin discontinued. Patient is complaining pleuritic chest pain. Patient was evaluated by cardiology for elevated troponin and episode of A. fib on admission. Cardiology discontinued amiodarone and put her on Lopressor. Cardiology recommend against anticoagulation because of patient's anemia. Hemoglobin this morning was 7.4 and anemia work-up is in progress. I did ordered CT abdomen and pelvis. PT OT evaluation. Patient has ISAAC and nephrology is following. Patient has rectal tube and liquid stool in the bag. I ordered stool for C. difficile. We will continue to monitor. History Interval history: Patient was seen and evaluated this morning Patient was calm and cooperative but demented Patient did not have any complaints today He has rectal tube in place, and there is liquid stool in the bag Hospitalist Physical - Physical exam Narrative exam: Not in cardiopulmonary distress. The patient appeared well nourished and normally developed. Vital signs as documented. Head exam is unremarkable. No scleral icterus . Neck is without jugular venous distension, thyromegaly, or carotid bruits. Lungs are clear to auscultation. Cardiac exam reveals regular rate and Rhythm. Abdominal exam reveals normal bowel sounds, nontender, no organomegaly. Rectal tube in place. Extremities are nonedematous and both femoral and pedal pulses are normal. INTELLIGENCE RESEARCH SPECIALIST: Alert, cooperative, severely demented - Constitutional Vitals: Temp Pulse Resp BP Pulse Ox 98.9 F 89 19 135/68 99 06/10/20 03:49 06/10/20 03:49 06/10/20 03:49 06/10/20 03:49 06/10/20 08:50 General appearance: Present: no acute distress, well-nourished HEART Score - HEART Score Troponin: Troponin T 0.230 ng/mL (0.00-0.029) H* 06/09/20 12:57 Results - Labs CBC & Chem 7: 06/10/20 04:22 06/10/20 04:22 Labs: Laboratory Last Values WBC 13.8 K/mm3 (4.5-11.0) H 06/10/20 04:22 RBC 2.31 M/mm3 (3.65-5.03) L 06/10/20 04:22 Hgb 7.4 gm/dl (11.8-15.2) L 06/10/20 04:22 Hct 22.6 % (35.5-45.6) L 06/10/20 04:22 MCV 98 fl (84-94) H 06/10/20 04:22 MCH 32 pg (28-32) 06/10/20 04:22 MCHC 33 % (32-34) 06/10/20 04:22 RDW 14.6 % (13.2-15.2) 06/10/20 04:22 Plt Count 146 K/mm3 (140-440) 06/10/20 04:22 Lymph % (Auto) 53.7 % (13.4-35.0) H 06/06/20 10:19 Price % (Auto) Qa Internship 06/07/20 02:51 Eos % (Auto) 1.6 % (0.0-4.3) 06/06/20 10:19 Baso % (Auto) 0.3 % (0.0-1.8) 06/06/20 10:19 Lymph # (Auto) 2.4 K/mm3 (1.2-5.4) 06/06/20 10:19 Price # (Auto) 0.3 K/mm3 (0.0-0.8) 06/06/20 10:19 Eos # (Auto) 0.1 K/mm3 (0.0-0.4) 06/06/20 10:19 Baso # (Auto) 0.0 K/mm3 (0.0-0.1) 06/06/20 10:19 Add Manual Diff Complete 06/07/20 02:51 Total Counted 100 06/07/20 02:51 Seg Neutrophils % 37.6 % (40.0-70.0) L 06/06/20 10:19 Seg Neuts % (Manual) 66.0 % (40.0-70.0) 06/07/20 02:51 Band Neutrophils % 14.0 % 06/07/20 02:51 Lymphocytes % (Manual) 8.0 % (13.4-35.0) L 06/07/20 02:51 Monocytes % (Manual) 12.0 % (0.0-7.3) H 06/07/20 02:51 Nucleated RBC % Not Reportable 06/07/20 02:51 Seg Neutrophils # 1.7 K/mm3 (1.8-7.7) L 06/06/20 10:19 Seg Neutrophils # Man 3.5 K/mm3 (1.8-7.7) 06/07/20 02:51 Band Neutrophils # 0.7 K/mm3 06/07/20 02:51 Lymphocytes # (Manual) 0.4 K/mm3 (1.2-5.4) L 06/07/20 02:51 Abs React Lymphs (Man) 0.0 K/mm3 06/07/20 02:51 Monocytes # (Manual) 0.6 K/mm3 (0.0-0.8) 06/07/20 02:51 Eosinophils # (Manual) 0.0 K/mm3 (0.0-0.4) 06/07/20 02:51 Basophils # (Manual) 0.0 K/mm3 (0.0-0.1) 06/07/20 02:51 Metamyelocytes # 0.0 K/mm3 06/07/20 02:51 Myelocytes # 0.0 K/mm3 06/07/20 02:51 Promyelocytes # 0.0 K/mm3 06/07/20 02:51 Blast Cells # 0.0 K/mm3 06/07/20 02:51 WBC Morphology Not Reportable 06/07/20 02:51 Hypersegmented Neuts Not Reportable 06/07/20 02:51 Hyposegmented Neuts Not Reportable 06/07/20 02:51 Hypogranular Neuts Not Reportable 06/07/20 02:51 Smudge Cells Not Reportable 06/07/20 02:51 Toxic Granulation Not Reportable 06/07/20 02:51 Toxic Vacuolation Not Reportable 06/07/20 02:51 Dohle Bodies Not Reportable 06/07/20 02:51 Pelger-Huet Anomaly Not Reportable 06/07/20 02:51 Denys Rods Not Reportable 06/07/20 02:51 Platelet Estimate Consistent w auto 06/07/20 02:51 Clumped Platelets Not Reportable 06/07/20 02:51 Plt Clumps, EDTA Not Reportable 06/07/20 02:51 Large Platelets Not Reportable 06/07/20 02:51 Giant Platelets Not Reportable 06/07/20 02:51 Platelet Satelliting Not Reportable 06/07/20 02:51 Plt Morphology Comment Not Reportable 06/07/20 02:51 RBC Morphology Normal 06/07/20 02:51 Dimorphic RBCs Not Reportable 06/07/20 02:51 Polychromasia Not Reportable 06/07/20 02:51 Hypochromasia Not Reportable 06/07/20 02:51 Poikilocytosis Not Reportable 06/07/20 02:51 Anisocytosis Not Reportable 06/07/20 02:51 Microcytosis Not Reportable 06/07/20 02:51 Macrocytosis Not Reportable 06/07/20 02:51 Spherocytes Not Reportable 06/07/20 02:51 Pappenheimer Bodies Not Reportable 06/07/20 02:51 Sickle Cells Not Reportable 06/07/20 02:51 Target Cells Not Reportable 06/07/20 02:51 Tear Drop Cells Not Reportable 06/07/20 02:51 Ovalocytes Not Reportable 06/07/20 02:51 Helmet Cells Not Reportable 06/07/20 02:[address] [place] Bodies Not Reportable 06/07/20 02:51 [place] Rings Not Reportable 06/07/20 02:51 Dom Cells Not Reportable 06/07/20 02:51 Bite Cells Not Reportable 06/07/20 02:51 Crenated Cell Not Reportable 06/07/20 02:51 Elliptocytes Not Reportable 06/07/20 02:51 Acanthocytes (Spur) Not Reportable 06/07/20 02:51 Rouleaux Not Reportable 06/07/20 02:51 Hemoglobin C Crystals Not Reportable 06/07/20 02:51 Schistocytes Not Reportable 06/07/20 02:51 Malaria parasites Not Reportable 06/07/20 02:51 Chance Bodies Not Reportable 06/07/20 02:51 Hem Pathologist Commnt No 06/07/20 02:51 PT 16.3 Sec. (12.2-14.9) H 06/06/20 10:19 INR 1.33 (0.87-1.13) H 06/06/20 10:19 APTT 31.6 Sec. (24.2-36.6) 06/06/20 10:19 ABG pH 7.329 pH Units (7.350-7.450) L 06/06/20 11:18 ABG pCO2 27.8 mm Hg 06/06/20 11:18 ABG pO2 258.1 mm Hg (80.0-90.0) H 06/06/20 11:18 ABG HCO3 14.3 mmol/L (20.0-26.0) L 06/06/20 11:18 ABG O2 Saturation 99.4 % (95.0-99.0) H 06/06/20 11:18 ABG O2 Content 13.2 (0.0-44) 06/06/20 11:18 ABG Base Excess -10.5 mmol/L (-2.0-3.0) L 06/06/20 11:18 ABG Hemoglobin 9.1 gm/dl (14.0-18.0) L 06/06/20 11:18 ABG Carboxyhemoglobin 1.3 % (0.0-5.0) 06/06/20 11:18 ABG Methemoglobin Not Reportable 06/06/20 11:18 VBG pH 7.438 (7.320-7.420) H 06/06/20 10:19 Oxyhemoglobin 98.2 % (95.0-99.0) 06/06/20 11:18 FiO2 21 % 06/06/20 11:18 Sodium 146 mmol/L (137-145) H 06/10/20 04:22 Potassium 3.5 mmol/L (3.6-5.0) L 06/10/20 04:22 Chloride 111.4 mmol/L (98-107) H 06/10/20 04:22 Carbon Dioxide 22 mmol/L (22-30) 06/10/20 04:22 Anion Gap 16 mmol/L 06/10/20 04:22 BUN 84 mg/dL (9-20) H 06/10/20 04:22 Creatinine 2.7 mg/dL (0.8-1.3) H 06/10/20 04:22 Estimated GFR 28 ml/min 06/10/20 04:22 BUN/Creatinine Ratio 31 % 06/10/20 04:22 Glucose 105 mg/dL (75-100) H 06/10/20 04:22 POC Glucose 91 mg/dL (70-105) 06/09/20 22:48 Lactic Acid 1.50 mmol/L (0.7-2.0) 06/08/20 05:15 Calcium 7.7 mg/dL (8.4-10.2) L 06/10/20 04:22 Total Bilirubin 0.40 mg/dL (0.1-1.2) 06/07/20 02:51 AST 135 units/L (5-40) H 06/07/20 02:51 ALT 70 units/L (7-56) H 06/07/20 02:51 Alkaline Phosphatase 82 units/L (35-129) 06/07/20 02:51 Ammonia 64.0 umol/L (25-60) H 06/06/20 10:19 Total Creatine Kinase 1212 units/L (55-170) H 06/09/20 12:57 CK-MB (CK-2) 12.1 ng/mL (0.0-4.0) H 06/09/20 12:57 CK-MB (CK-2) Rel Index 0.9 (0-4) 06/09/20 12:57 Troponin T 0.230 ng/mL (0.00-0.029) H* 06/09/20 12:57 Total Protein 6.2 g/dL (6.3-8.2) L 06/07/20 02:51 Albumin 3.2 g/dL (3.9-5) L 06/07/20 02:51 Albumin/Globulin Ratio 1.1 % 06/07/20 02:51 Triglycerides 103 mg/dL (2-149) 06/06/20 10:19 Cholesterol 84 mg/dL (50-199) 06/06/20 10:19 LDL Cholesterol Direct 28 mg/dL (50-130) L 06/06/20 10:19 HDL Cholesterol 44 mg/dL (40-59) 06/06/20 10:19 Cholesterol/HDL Ratio 1.90 % 06/06/20 10:19 TSH 4.440 mlU/mL (0.270-4.200) H 06/06/20 10:19 Free T4 1.55 ng/dL (0.76-1.46) H 06/06/20 10:19 PTH Intact 271.9 pg/mL (15-65) H 06/08/20 05:15 Urine Color Yellow (Yellow) 06/06/20 14:02 Urine Turbidity Cloudy (Clear) 06/06/20 14:02 Urine pH 6.0 (5.0-7.0) 06/06/20 14:02 Ur Specific [place]cy 1.013 (1.003-1.030) 06/06/20 14:02 Urine Protein 100 mg/dl mg/dL (Negative) 06/06/20 14:02 Urine Glucose (UA) Neg mg/dL (Negative) 06/06/20 14:02 Urine Ketones Neg mg/dL (Negative) 06/06/20 14:02 Urine Blood Sm (Negative) 06/06/20 14:02 Urine Nitrite Neg (Negative) 06/06/20 14:02 Urine Bilirubin Neg (Negative) 06/06/20 14:02 Urine Urobilinogen < 2.0 mg/dL (<2.0) 06/06/20 14:02 Ur Leukocyte Esterase Lg (Negative) 06/06/20 14:02 Urine WBC (Auto) > 182.0 /HPF (0.0-6.0) H 06/06/20 14:02 Urine RBC (Auto) 55.0 /HPF (0.0-6.0) 06/06/20 14:02 U Epithel Cells (Auto) 1.0 /HPF (0-13.0) 06/06/20 14:02 Urine WBC Clumps 2+ /HPF 06/06/20 14:02 Urine Creatinine 57.0 mg/dL (0.1-20.0) H 06/06/20 21:05 Urine Sodium 85 mmol/L 06/06/20 21:05 Random Vancomycin 9.8 ug/mL (0-40.0) 06/09/20 04:30 Urine Opiates Screen Presumptive negative 06/06/20 14:02 Urine Methadone Screen Presumptive negative 06/06/20 14:02 Ur Barbiturates Screen Presumptive negative 06/06/20 14:02 Ur Phencyclidine Scrn Presumptive negative 06/06/20 14:02 Ur Amphetamines Screen Presumptive negative 06/06/20 14:02 U Benzodiazepines Scrn Presumptive negative 06/06/20 14:02 Urine Cocaine Screen Presumptive negative 06/06/20 14:02 U Marijuana (THC) Screen Presumptive negative 06/06/20 14:02 Drugs of Abuse Note Disclamer 06/06/20 14:02 Plasma/Serum Alcohol < 0.01 % (0-0.07) 06/06/20 10:19 C. difficile Tox (PCR) Negative (Negative) 06/08/20 Unknown Coronavirus (PCR) Negative (Negative) 06/07/20 09:15 Blood Type O POSITIVE 06/06/20 14:47 Antibody Screen Negative 06/06/20 14:47 Microbiology: Microbiology 06/06/20 10:19 Peripheral/Venous Blood Culture - Preliminary NO GROWTH AFTER 72 HOURS 06/07/20 11:10 Urine,Catheterized - Indwelling Catheter Urine Culture - Final NO GROWTH AFTER 48 HOURS 06/08/20 10:11 Peripheral/Venous Blood Culture - Preliminary NO GROWTH AFTER 24 HOURS 06/08/20 10:11 Peripheral/Venous Blood Culture - Preliminary NO GROWTH AFTER 24 HOURS Hair/IV: Voiding Method Indwelling Catheter Active Medications - Current Medications Current Medications: Generic Name Dose Route Start Last Admin Trade Name Freq PRN Reason Stop Dose Admin Acetaminophen 650 mg 06/06/20 15:00 Acetaminophen 325 Mg Tab PO Q6H PRN Pain, Mild (1-3) Albuterol 2.5 mg 06/06/20 15:00 Albuterol 2.5 Mg/3 Ml Nebu IH Q3HRT PRN Shortness Of Breath Allopurinol 100 mg 06/07/20 10:00 06/09/20 09:59 Allopurinol 100 Mg Tab PO Not Given QDAY [facility] Calcium Carbonate/Glycine 500 mg 06/07/20 10:00 06/09/20 09:59 Calcium Carbonate 500 Mg Tab Chew PO Not Given QDAY [facility] Cholecalciferol 2,000 unit 06/07/20 10:00 06/09/20 09:59 Cholecalciferol (Vit D3) 1000 Unit (25 Mcg) Tab PO Not Given QDAY YELENA Diclofenac Sodium 20 applic 06/07/20 10:00 06/09/20 09:59 Diclofenac Sodium 1% Topical Gel 100 Gm TP 20 applic QDAY YELENA Administration Dicyclomine HCl 10 mg 06/06/20 20:00 06/09/20 22:22 Dicyclomine 10 Mg Cap PO 10 mg TID YELENA Administration Docusate Sodium 100 mg 06/06/20 15:57 Docusate Sodium 100 Mg Cap PO BID PRN Constipation Famotidine 20 mg 06/08/20 11:00 06/09/20 09:59 Famotidine 20 Mg/2 Ml Inj IV 20 mg QDAY YELENA Administration Heparin Sodium (Porcine) 5,000 unit 06/07/20 22:00 06/09/20 22:22 Heparin 5,000 Unit/1 Ml Vial SUB-Q 5,000 unit Q12HR EYLENA Administration Cefepime HCl 2 gm in 100 mls @ 200 mls/hr 06/07/20 22:00 06/09/20 22:24 Cefepime/Ns 2 Gm/100 Ml IV 200 mls/hr Q24HR@2200 YELENA Administration Sodium Bicarbonate 100 meq/ 1,100 mls @ 75 mls/hr 06/07/20 17:00 06/09/20 17:55 Sterile Water IV 75 mls/hr DIRECT YELENA Administration Magnesium Citrate 300 ml 06/06/20 16:20 Magnesium Citrate 300 Ml Oral Liqd PO QDAY PRN Constipation Metoprolol Tartrate 25 mg 06/09/20 22:00 06/09/20 22:23 Metoprolol Tartrate 25 Mg Tab PO 25 mg BID EYLENA Administration Pravastatin Sodium 10 mg 06/06/20 22:00 06/10/20 08:12 Pravastatin 20 Mg Tab PO Not Given QHS YELENA Sodium Chloride 10 ml 06/06/20 15:00 06/10/20 08:12 Sodium Chloride 0.9% 10 Ml Flush Syringe IV Not Given BID YELENA Sodium Chloride 10 ml 06/06/20 15:00 Sodium Chloride 0.9% 10 Ml Flush Syringe IV PRN PRN LINE FLUSH Nutrition/Malnutrition Assess - Dietary Evaluation Nutrition/Malnutrition Findings: Nutrition Notes Start: 06/08/20 11:43 Freq: Status: Active Protocol: Document 06/08/20 11:43 CW (Rec: 06/08/20 11:54 CW [id number]) Nutrition Notes 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 Current Diet NPO Labs/Tests K 4.9 BG 165 BUN 93 Cr 3.2 Pertinent Medications Levophed, dopamine, vasopressin LR 1L Cefepime Height 5 ft 8 in Weight 76.9 kg [place] Body Weight (kg) 70.00 BMI 25.7 Weight Status Appropriate Subjective/Other Information RN screen for skin risk. Mayur score of 10. Pt has a stage 1 pressure ulcer to sacrum. Pt possibly s/p CVA. PT failed bedside swallow test . ST to evaluate. Recommend alternative source of feeding once medically feasible. Per MD feeding not advisable at this time. Pt has some diarrhea likely r/t ABTx. Burn Absent Trauma Absent GI Symptoms Diarrhea Difficulty In Swallowing Skin Integrity/Comment Stage 1 pressure ulcer Current % PO Negligible Minimum of two criteria No physical signs of malnutrition #2 Nutrition Diagnosis Increased nutrient needs ( specify in comment below) Comments: protein Etiology wound healing As Evidenced by Signs and Symptoms stage 1 pressure ulcer to sacrum #1 Nutrition Diagnosis Inadequate oral intake Etiology dysphagia As Evidenced by Signs and Symptoms pt recently failed beside swallow test Is patient on ventilator? No Is Patient Ambulatory and/or Out of Bed Yes REE-([facility]-ambulatory/OOB) [ 1896.050 [id number]] Calculation Used for Recommendations [facility] Additional Notes protein needs: 62 - 153g (0.8 - 1.2g/kgBW for ISAAC) fluid needs: 1 ml/kcal Nutrition Intervention Change Diet Order: Initiate TF when medically feasible Nutrition Support: Nepro at 40 ml/hr with a free water flush of 175 ml q4h. Kcal 1,728 Protein (gm) 78 Fluid (mL) 698 Goal #1 diet advancment when medically feasible Goal #2 wound healing Anticipated Discharge Needs: unable to determine at this time Follow-Up By: 06/10/20 Additional Comments F/U diet advancement, speech eval
--- NOTE | 2020-06-10 11:09 | Cat Scan Report ---
CT ABDOMEN AND PELVIS WITHOUT CONTRAST HISTORY: Sepsis. COMPARISON: None. TECHNIQUE: CT images of the abdomen and pelvis were obtained without administration of intravenous co ntrast. All CT scans at this location are performed using CT dose reduction for ALARA by means of au tomated exposure control. FINDINGS: Lungs/bones: There are small right and small to moderate left pleural effusions with underlying cons olidation. Degenerative changes are present in the spine and pelvis with no acute osseous abnormality identified. Right femoral neck fixation is noted without complication. Prominent external callus adriel bernabe heterotopic ossification is seen overlying the right hip. Abdomen/pelvis: There is diffuse anasarca. The liver, spleen, pancreas, and proximal GI tract appear unremarkable. There is mild motion artifact which limits evaluation of the kidneys but there appears to be a small cyst in the upper pole the right and otherwise nothing acute. There also appears to be mild adrenal t hickening. There is diffuse mesenteric haziness with no ascites identified. Hair catheter is in the bladder which is mostly collapsed and there is also a rectal tube in place. There is mild circumferential wall thickening along the descending colon extending to the level the r ectum. The proximal colon appears unremarkable. IMPRESSION: 1. Descending colitis from essentially the splenic flexure to the rectum. Ischemic colitis can be see n in this distribution and also in septic patients with episodes of hypovolemia and correlation with lactate level is recommended. There is no pneumatosis or portal venous gas. 2. Findings currently suggestive of mild volume overload with anasarca and pleural effusions. 3. Bibasilar consolidation most likely at least in part reflect compressive atelectasis but cannot ex clude superimposed underlying pneumonia. Signer Name: Conrad Jones MD Signed: 06/10/2020 10:25 AM Workstation Name: [id number]
[2020-06-10 11:53] LABS: Iron 54 ug/dL (49-181); Total Iron Binding Capacity 157 mcg/dL (250-450)
[2020-06-10] MEDS: allopurinoL 100 MG TAB PO SCH (12:36)
[2020-06-10] MEDS: FAMOTIDINE 20 MG/2 ML INJ IV SCH (12:36)
[2020-06-10] MEDS: METOPROLOL TARTRATE 25 MG TAB PO SCH ×2 (12:36→21:33)
[2020-06-10] MEDS: DICYCLOMINE 10 MG CAP PO SCH ×3 (12:37→21:42)
[2020-06-10] MEDS: CHOLECALCIFEROL (VIT D3) 1000 UNIT (25 mcg) TAB PO SCH (12:37)
[2020-06-10] MEDS: HEPARIN 5,000 UNIT/1 ML VIAL SUB-Q SCH ×2 (12:37→21:34)
[2020-06-10] MEDS: CALCIUM CARBONATE 500 MG TAB CHEW PO SCH (12:37)
[2020-06-10] MEDS: DICLOFENAC SODIUM 1% TOPICAL GEL 100 GM TP SCH (12:38)
--- NOTE | 2020-06-10 12:51 | Progress Note ---
Assessment and Plan Pt resting comfortably in bed, pleasantly confused. No CP or SOB overnight. He was weaned off vasopressors yesterday and has transferred to telemetry. Tele reviewed: SR 87. No events. Troponins elevation appears consistent with NSTEMI type II. Continue to trend Josh. No systemic AC at this time in regards to AFib in setting of anemia and transient nature of AFib (<24Hr bout). Recommend further eval/management of anemia per primary. F/u CBC in AM. Pt noted to have EF 15-20% with LBBB on ECG. Unknown etiology or chronicity of these diagnoses. No current clinical evidence of acutely decompensated HF. Per [facility] records, pt saw [facility] in 1998 and underwent LHC which did not show any significant findings. Will likely proceed with conservative cardiac management given pt's advanced age, dementia and multiple co-morbidities. Consider stress testing for further evaluation of newly diagnosed CMP and LBBB once medically stabilized - can be done as OP. No ACEI/ARB in setting of renal failure. F/u BMP in AM. Follow nephrology recs. Continue antihypertensive regimen. Continue Metoprolol 25mg PO BID as tolerated in setting of septic shock. Will follow. The patient has been seen in conjunction with Dr. Rosa who agrees with the assessment and plan of care. - Patient Problems (1) Altered mental status Current Visit: Yes Status: Acute (2) Sepsis Current Visit: Yes Status: Acute (3) Septic shock Current Visit: Yes Status: Acute (4) Urinary tract infection Current Visit: Yes Status: Acute Qualifiers: Encounter type: initial encounter (5) Renal failure Current Visit: Yes Status: Acute (6) Diarrhea Current Visit: Yes Status: Acute (7) Anemia Current Visit: Yes Status: Acute (8) Cardiomyopathy Current Visit: Yes Status: Chronic (9) LBBB (left bundle branch block) Current Visit: Yes Status: Acute (10) Transient atrial fibrillation Current Visit: Yes Status: Acute (11) Dementia Current Visit: Yes Status: Chronic (12) History of CVA (cerebrovascular accident) Current Visit: Yes Status: Chronic (13) Diabetes Current Visit: Yes Status: Chronic (14) NSTEMI Current Visit: Yes Status: Chronic Suspect type II Subjective Date of service: 06/10/20 Principal diagnosis: Shock, Atrial Flutter with CVR Interval history: Pt resting comfortably in bed, pleasantly confused. No CP or SOB overnight. Tele reviewed: SR 87. No events. Objective Last Vital Signs Temp 98.9 F 06/10/20 03:49 Pulse 89 06/10/20 03:49 Resp 19 06/10/20 03:49 BP 135/68 06/10/20 03:49 Pulse Ox 99 06/10/20 08:50 - Physical Examination General: No Apparent Distress HEENT: Positive: PERRL, Normocephaly, Mucus Membranes Moist Neck: Positive: neck supple, trachea midline Cardiac: Positive: Reg Rate and Rhythm, S1/S2 Lungs: Positive: clear to auscultation, Normal Breath Sounds Neuro: Positive: Other (confused) Abdomen: Negative: Tender Skin: Negative: Rash Musculoskeletal: No Pain Extremities: Absent: edema - Labs and Meds Cardiac Enzymes 06/09/20 Range/Units 12:57 CK-MB (CK-2) 12.1 H (0.0-4.0) ng/mL CBC 06/10/20 Range/Units 04:22 WBC 13.8 H (4.5-11.0) K/mm3 RBC 2.31 L (3.65-5.03) M/mm3 Hgb 7.4 L (11.8-15.2) gm/dl Hct 22.6 L (35.5-45.6) % Plt Count 146 (140-440) K/mm3 Comprehensive Metabolic Panel 06/10/20 Range/Units 04:22 Sodium 146 H (137-145) mmol/L Potassium 3.5 L (3.6-5.0) mmol/L Chloride 111.4 H (98-107) mmol/L Carbon Dioxide 22 (22-30) mmol/L BUN 84 H (9-20) mg/dL Creatinine 2.7 H (0.8-1.3) mg/dL Glucose 105 H (75-100) mg/dL Calcium 7.7 L (8.4-10.2) mg/dL - Imaging and Cardiology EKG: report reviewed, image reviewed Echo: report reviewed (06/06/2020 showed EF 15-20%, LV borderline dilated, no significant valvular abnormalities. ) Cardiac cath: report reviewed (1998 - no significant findings) - Telemetry EKG Rhythm: Sinus Rhythm - EKG Sinus rhythms and dysrhythmias: sinus rhythm AV and intraventricular conduction: left bundle branch block
--- NOTE | 2020-06-10 12:56 | Progress Note ---
Assessment and Plan Cultures: Blood culture 06/06/2020 coagulase-negative staph 1 out of 4 Blood culture 06/08/2020 no growth today C. difficile PCR negative SARS-CoV-2 PCR negative Urine culture 06/07/2020 no growth Assessment: 80 years old male with history of dementia, CVA, debility, diabetes mellitus, secondary to few hours of unresponsiveness at breakfast at his assisted living facility: #Sepsis with septic shock: Resolved, remarkable improvement, off pressors; source UTI +/- acute diarrhea. #Coagulase-negative staph bacteremia: 1 out of 4 likely contaminant. #Acute hypoxemic respiratory failure: now on NC O2. CXR clear. SARS-CoV-2 PCR negative. #UTI: with hematuria, urine culture no growth #Diarrhea: ?colitis, C. difficile PCR negative. #Acute encephalopathy: due to sepsis> CT no acute changes. Resolved. #ISAAC: ? from sepsis, better #RVR A. fib: On amiodarone, cardiology on board #Thrombocytopenia: Monitor platelets, likely due to sepsis, resolved. Recommendations: -Continue cefepime renally adjusted D3 of 5 -remove torres is feasible Will follow. Nona Childs MD Infectious Diseases [employer] [facility] ([facility]) M [phone] O [phone] Subjective Date of service: 06/10/20 Principal diagnosis: Shock, Atrial Flutter with CVR Interval history: Patient feeling better, no complaints Objective - Exam Narrative Exam: General appearance: Alert in NAD on NC O2 Eyes: anicteric sclerae, moist conjunctivae; no lid-lag; PERRLA HENT: Normocephalic, Atraumatic; normal external ears, nares open, oropharynx limited edentulous Neck: supple, tracheal midline, no JVD Lungs: Clear to auscultation bilaterally CV: RRR no murmur Abdomen: Soft, nontender, ventral hernia Extremities: no edema, no cyanosis Skin: No rash. Psych: no agitated Neuro: Alert, follows simple commands Torres catheter in place - Constitutional Vitals: Vital Signs Temp Pulse Resp BP Pulse Ox 98.9 F 89 19 135/68 99 06/10/20 03:49 06/10/20 03:49 06/10/20 03:49 06/10/20 03:49 06/10/20 08:50 Temperature -Last 24 Hours Temperature 98.9 F Temperature 97.3 F Temperature 98.3 F Temperature 98.9 F - Labs CBC & Chem 7: 06/10/20 04:22 06/10/20 04:22 Labs: Abnormal lab results 06/09/20 06/09/20 06/10/20 Range/Units 12:57 17:42 04:22 WBC (4.5-11.0) K/mm3 RBC (3.65-5.03) M/mm3 Hgb (11.8-15.2) gm/dl Hct (35.5-45.6) % MCV (84-94) fl Sodium 146 H (137-145) mmol/L Potassium 3.5 L (3.6-5.0) mmol/L Chloride 111.4 H (98-107) mmol/L BUN 84 H (9-20) mg/dL Creatinine 2.7 H (0.8-1.3) mg/dL Glucose 105 H (75-100) mg/dL POC Glucose 112 H (70-105) mg/dL Calcium 7.7 L (8.4-10.2) mg/dL TIBC (250-450) mcg/dL Ferritin (30.0-300.0) ng/mL Total Creatine Kinase 1212 H (55-170) units/L CK-MB (CK-2) 12.1 H (0.0-4.0) ng/mL Troponin T 0.230 H* (0.00-0.029) ng/mL 06/10/20 06/10/20 06/10/20 Range/Units 04:22 10:44 10:44 WBC 13.8 H (4.5-11.0) K/mm3 RBC 2.31 L (3.65-5.03) M/mm3 Hgb 7.4 L (11.8-15.2) gm/dl Hct 22.6 L (35.5-45.6) % MCV 98 H (84-94) fl Sodium (137-145) mmol/L Potassium (3.6-5.0) mmol/L Chloride (98-107) mmol/L BUN (9-20) mg/dL Creatinine (0.8-1.3) mg/dL Glucose (75-100) mg/dL POC Glucose (70-105) mg/dL Calcium (8.4-10.2) mg/dL TIBC 157 L (250-450) mcg/dL Ferritin 569.5 H (30.0-300.0) ng/mL Total Creatine Kinase (55-170) units/L CK-MB (CK-2) (0.0-4.0) ng/mL Troponin T (0.00-0.029) ng/mL
--- NOTE | 2020-06-10 13:17 | Progress Note ---
Assessment and Plan 80 y/o male with sepsis with shock and positive blood cultures along with CHF with severe global hypokinesis. 06/10/20: Stable pulm status. Will see PRN 06/09/20: Continue Amio. Rate is controlled. Follow up cardiology recs. Abx therapy per ID. Cultures negative so far, with one showing coag negative staph. Wean FiO2 as tolerated. Critical Care standpoint, stable for transfer to floor/telemetry. Speech to assess swallowing. Sepsis-exact etiology is unknown, giving volume now but mindful of CHF status. Only on 3 liters NC. Currently tachycardic. Appears to be afib now. Currently on abx and follow up cultures. CV-tachycardia, most likely sepsis related but with low EF,could be intrinsic. Ordered Stat EKG to eval for afib. Given hypotension will need something like amio for rate control vs cardioversion. Pulm- stable on 3 liters. GI-NPO for right now Neuro-dementia but stable. Guarded prognosis. CCT 31 minutes Subjective Date of service: 06/10/20 Principal diagnosis: Shock, Atrial Flutter with CVR Interval history: Successful transfer to floor. Stable on 2 liters NC. No pulm issues. Objective - Constitutional Vitals: Vital Signs - 12hr 06/10/20 06/10/20 06/10/20 02:48 03:49 08:50 Temperature 98.9 F Pulse Rate 85 89 Respiratory 19 Rate Blood Pressure 135/68 O2 Sat by Pulse 99 99 Oximetry - Labs CBC & Chem 7: 06/10/20 04:22 06/10/20 04:22 Labs: Abnormal lab results 06/09/20 06/09/20 06/10/20 Range/Units 12:57 17:42 04:22 WBC (4.5-11.0) K/mm3 RBC (3.65-5.03) M/mm3 Hgb (11.8-15.2) gm/dl Hct (35.5-45.6) % MCV (84-94) fl Sodium 146 H (137-145) mmol/L Potassium 3.5 L (3.6-5.0) mmol/L Chloride 111.4 H (98-107) mmol/L BUN 84 H (9-20) mg/dL Creatinine 2.7 H (0.8-1.3) mg/dL Glucose 105 H (75-100) mg/dL POC Glucose 112 H (70-105) mg/dL Calcium 7.7 L (8.4-10.2) mg/dL TIBC (250-450) mcg/dL Ferritin (30.0-300.0) ng/mL Total Creatine Kinase 1212 H (55-170) units/L CK-MB (CK-2) 12.1 H (0.0-4.0) ng/mL Troponin T 0.230 H* (0.00-0.029) ng/mL 06/10/20 06/10/20 06/10/20 Range/Units 04:22 10:44 10:44 WBC 13.8 H (4.5-11.0) K/mm3 RBC 2.31 L (3.65-5.03) M/mm3 Hgb 7.4 L (11.8-15.2) gm/dl Hct 22.6 L (35.5-45.6) % MCV 98 H (84-94) fl Sodium (137-145) mmol/L Potassium (3.6-5.0) mmol/L Chloride (98-107) mmol/L BUN (9-20) mg/dL Creatinine (0.8-1.3) mg/dL Glucose (75-100) mg/dL POC Glucose (70-105) mg/dL Calcium (8.4-10.2) mg/dL TIBC 157 L (250-450) mcg/dL Ferritin 569.5 H (30.0-300.0) ng/mL Total Creatine Kinase (55-170) units/L CK-MB (CK-2) (0.0-4.0) ng/mL Troponin T (0.00-0.029) ng/mL Medications & Allergies - Medications Allergies/Adverse Reactions: Allergies No Known Allergies Allergy (Verified 06/06/20 15:21) Home Medications: Home Medications Medication Instructions Recorded Confirmed Last Taken Type Amlodipine Besylate [Norvasc] 5 mg PO QDAY 06/06/20 06/06/20 Unknown History Bisacodyl [Women's Gentle Laxative] 5 mg PO BID 06/06/20 06/06/20 Unknown History Calcium Carb/Magnesium Hydrox 500 mg PO QDAY 06/06/20 06/06/20 Unknown History [Antacid 1000-200 mg Tab Chew] Cholecalciferol (Vitamin D3) 2,000 unit PO QDAY 06/06/20 06/06/20 Unknown History [Vitamin D3 2,000 UNIT CAP] Dextrose/Dextrin/Maltose 24 gm PO ONCE 06/06/20 06/06/20 Unknown History [Insta-Glucose Gel] Diclofenac 1% [Diclofenac 1% 100 gm TP QDAY 06/06/20 06/06/20 Unknown History topical gel] Dicyclomine [Bentyl] 10 mg PO TID 06/06/20 06/06/20 Unknown History Docusate Sodium [Colace] 100 mg PO BID PRN 06/06/20 06/06/20 Unknown History Furosemide [Lasix] 40 mg PO QDAY 06/06/20 06/06/20 Unknown History Insulin Lispro [Insulin Lispro 10 unit SQ TID 06/06/20 06/06/20 Unknown History Kwikpen U-100] Magnesium Citrate [Citroma] 296 ml PO QDAY 06/06/20 06/06/20 Unknown History Melatonin [Melatonin 3MG TAB] 6 mg PO QHS 06/06/20 06/06/20 Unknown History Oxycodone HCl/Acetaminophen 1 each PO QDAY 06/06/20 06/06/20 Unknown History [Oxycodone-Acetaminophen 10-325] Pantoprazole [Protonix] 40 mg PO QDAY 06/06/20 06/06/20 Unknown History Pioglitazone HCl [Actos] 30 mg PO QDAY 06/06/20 06/06/20 Unknown History Polyethylene Glycol 3350 [Gavilax] 10 gm PO QDAY 06/06/20 06/06/20 Unknown History Pravastatin Sodium [Pravastatin] 10 mg PO QHS 06/06/20 06/06/20 Unknown History Tamsulosin [Flomax] 0.4 mg PO QDAY 06/06/20 06/06/20 Unknown History allopurinoL [Zyloprim] 100 mg PO QDAY 06/06/20 06/06/20 Unknown History lisinopriL [Lisinopril] 20 mg PO QDAY 06/06/20 06/06/20 Unknown History Active Medications: Generic Name Dose Route Start Last Admin Trade Name Freq PRN Reason Stop Dose Admin Acetaminophen 650 mg 06/06/20 15:00 Acetaminophen 325 Mg Tab PO Q6H PRN Pain, Mild (1-3) Albuterol 2.5 mg 06/06/20 15:00 Albuterol 2.5 Mg/3 Ml Nebu IH Q3HRT PRN Shortness Of Breath Allopurinol 100 mg 06/07/20 10:00 06/10/20 12:36 Allopurinol 100 Mg Tab PO 100 mg QDAY YELENA Administration Calcium Carbonate/Glycine 500 mg 06/07/20 10:00 06/10/20 12:37 Calcium Carbonate 500 Mg Tab Chew PO 500 mg QDAY YELENA Administration Cholecalciferol 2,000 unit 06/07/20 10:00 06/10/20 12:37 Cholecalciferol (Vit D3) 1000 Unit (25 Mcg) Tab PO 2,000 unit QDAY YELENA Administration Diclofenac Sodium 20 applic 06/07/20 10:00 06/10/20 12:38 Diclofenac Sodium 1% Topical Gel 100 Gm TP 20 applic QDAY YELENA Administration Dicyclomine HCl 10 mg 06/06/20 20:00 06/10/20 12:37 Dicyclomine 10 Mg Cap PO 10 mg TID YELENA Administration Famotidine 20 mg 06/08/20 11:00 06/10/20 12:36 Famotidine 20 Mg/2 Ml Inj IV 20 mg QDAY YELENA Administration Heparin Sodium (Porcine) 5,000 unit 06/07/20 22:00 06/10/20 12:37 Heparin 5,000 Unit/1 Ml Vial SUB-Q 5,000 unit Q12HR YELENA Administration Cefepime HCl 2 gm in 100 mls @ 200 mls/hr 06/07/20 22:00 06/09/20 22:24 Cefepime/Ns 2 Gm/100 Ml IV 06/11/20 22:29 200 mls/hr Q24HR@2200 YELENA Administration Sodium Bicarbonate 100 meq/ 1,100 mls @ 75 mls/hr 06/07/20 17:00 06/09/20 17:55 Sterile Water IV 75 mls/hr DIRECT YELENA Administration Magnesium Citrate 300 ml 06/06/20 16:20 Magnesium Citrate 300 Ml Oral Liqd PO QDAY PRN Constipation Metoprolol Tartrate 25 mg 06/09/20 22:00 06/10/20 12:36 Metoprolol Tartrate 25 Mg Tab PO 25 mg BID YELENA Administration Pravastatin Sodium 10 mg 06/06/20 22:00 06/10/20 08:12 Pravastatin 20 Mg Tab PO Not Given QHS YELENA Sodium Chloride 10 ml 06/06/20 15:00 06/10/20 12:37 Sodium Chloride 0.9% 10 Ml Flush Syringe IV 10 ml BID YELENA Administration Sodium Chloride 10 ml 06/06/20 15:00 Sodium Chloride 0.9% 10 Ml Flush Syringe IV PRN PRN LINE FLUSH HEART Score - HEART Score Troponin: Troponin T 0.230 ng/mL (0.00-0.029) H* 06/09/20 12:57
[2020-06-10] MEDS: POLYETHYLENE GLYCOL 3350 17 GM POWDER PO SCH (15:34)
[2020-06-10] MEDS: PANTOPRAZOLE 40 MG TAB PO SCH (15:35)
[2020-06-10] MEDS ORDERED: POTASSIUM CHLORIDE ER 20 MEQ TAB PO ONE (20:22)
[2020-06-10] MEDS: CEFEPIME/NS 2 GM/100 ML 2 GM/100 ML BAG IV SCH (21:33)
[2020-06-10] MEDS ORDERED: POTASSIUM CHLORIDE 20 MEQ PACKET PO ONE (21:40)
[2020-06-11 05:41] LABS: Hematocrit 24.5 % (35.5-45.6); Mean Corpuscular HGB Conc 33 % (32-34); Mean Corpuscular Volume 96 fl (84-94); Platelet Count 161 K/mm3 (140-440); Red Blood Count 2.56 M/mm3 (3.65-5.03); Red Cell Distribution Width 14.1 % (13.2-15.2)
[2020-06-11 05:57] LABS: Basophils # (Auto) 0.1 K/mm3 (0.0-0.1); Basophils % (Auto) 0.4 % (0.0-1.8); Eosinophils # (Auto) 0.2 K/mm3 (0.0-0.4); Eosinophils % (Auto) 1.6 % (0.0-4.3); Lymphocytes # (Auto) 0.8 K/mm3 (1.2-5.4); Monocytes # (Auto) 0.8 K/mm3 (0.0-0.8); Monocytes % (Auto) 4.8 % (0.0-7.3)
[2020-06-11 06:08] LABS: Calcium 7.8 mg/dL (8.4-10.2)
--- NOTE | 2020-06-11 08:12 | Progress Note ---
Assessment and Plan Assessment and plan: This is a 80-year-old male who is a resident of assisted living facility with vascular dementia, cerebral sclerosis, debility, diabetes mellitus who presents to the emergency department on 06/06 with complaints of lethargy and diminished cognition as per daughter he developed an episode of unresponsiveness while at breakfast at at his assisted living facility. Patient was found to have a urinary tract infection complicated by sepsis and septic shock, acute kidney injury, toxic metabolic encephalopathy as well as metabolic acidosis. Patient was hypotensive with systolic blood pressures in the 50s and was initiated on vasopressor support in the emergency department. Patient was admitted to the [facility] service with consults to nephrology and [facility]. Septic Shock Metabolic encephalopathy Coag negative Staphylococcus 03/07 bottles Urinary tract infection Acute hypoxic respiratory failure Acute kidney injury Metabolic acidosis Diarrhea Dementia Hypertension Anemia 06/07: Patient remains on dopamine, vasopressin and Levophed. Nephrology has started the patient on sodium bicarbonate drip for metabolic acidosis. Infectious disease initiated vancomycin in addition to the cefepime and ordered a C. difficile. 06/08: Patient has gram-positive cocci bacteremia in 03/07 bottles which grew to be coag negative staph coccus and he has repeat blood cultures in progress. Urine culture has no growth to date and he is on IV vancomycin and cefepime. Yesterday we ordered a C. difficile PCR which is pending. Patient had a moment of tachycardia into the 130s and a stat EKG was obtained. Patient was given amiodarone bolus by [facility] and cardiology was consulted. Patient is hyperchloremic today however his metabolic acidosis and BUN/creatinine is slightly improved to 93/3.2 from 100/3.6 and his repeat lactic acid is 1.5. At the time my examination patient was on Levophed at 6, vasopressin 0.03 and dopamine at 6. This morning patient failed his swallow eval and ST evaluation was ordered. Of note patient's echocardiogram shows reduced 15 to 20% with borderline left ventricular hypertrophy. 06/09: This morning his speech evaluation was completed and he has been cleared for mechanical soft diet with thin liquids. Patient complained of right-sided chest pain with radiation to shoulders and a stat EKG cardiac enzymes were ordered. Patient was recultured yesterday and those have no growth to date and his vancomycin was stopped. Infectious disease team recommends removal of Hair catheter when feasible and a CT abdomen/pelvis when stable. Patient has been cleared to transfer to the floor by cardiology and [facility]. 06/10/2020; patient is on IV cefepime for sepsis due to UTI day 3 out of 5. Vanc omycin discontinued. Patient is complaining pleuritic chest pain. Patient was evaluated by cardiology for elevated troponin and episode of A. fib on admission. Cardiology discontinued amiodarone and put her on Lopressor. Cardiology recommend against anticoagulation because of patient's anemia. Hemoglobin this morning was 7.4 and anemia work-up is in progress. I did ordered CT abdomen and pelvis. PT OT evaluation. Patient has ISAAC and nephrology is following. Patient has rectal tube and liquid stool in the bag. I ordered stool for C. difficile. We will continue to monitor. 06/11/2020; patient is on cefepime day 4/5. CT abdomen and pelvis was done and significant for colitis, ischemic colitis is possibility given hypotension and elevated lactic acid level. I will consult GI. Patient has episode of A. fib for less than 24 hours, cardiology was consulted and recommend to be on L opressor. No need for coagulation because of his anemia. Hemoglobin this morning is improved to 8. Anemia work-up was done, no iron deficiency anemia identified. ISAAC is improving. C. difficile was negative. History Interval history: Patient was seen and evaluated this morning Patient was calm and cooperative but demented Patient did not have any complaints today He has rectal tube in place, and there is liquid stool in the bag Hospitalist Physical - Physical exam Narrative exam: Not in cardiopulmonary distress. The patient appeared well nourished and normally developed. Vital signs as documented. Head exam is unremarkable. No scleral icterus . Neck is without jugular venous distension, thyromegaly, or carotid bruits. Lungs are clear to auscultation. Cardiac exam reveals regular rate and Rhythm. Abdominal exam reveals normal bowel sounds, nontender, no organomegaly. Rectal tube in place. Extremities are nonedematous and both femoral and pedal pulses are normal. [employer]: Alert, cooperative, severely demented - Constitutional Vitals: Temp Pulse Resp BP Pulse Ox 99.6 F 86 20 137/60 98 06/11/20 05:32 06/11/20 05:32 06/11/20 05:32 06/11/20 05:32 06/11/20 05:32 General appearance: Present: no acute distress, well-nourished HEART Score - HEART Score Troponin: Troponin T 0.170 ng/mL (0.00-0.029) H* D 06/11/20 05:30 Results - Labs CBC & Chem 7: 06/11/20 05:30 06/11/20 05:30 Labs: Laboratory Last Values WBC 14.0 K/mm3 (4.5-11.0) H 06/11/20 05:30 RBC 2.56 M/mm3 (3.65-5.03) L 06/11/20 05:30 Hgb 8.0 gm/dl (11.8-15.2) L 06/11/20 05:30 Hct 24.5 % (35.5-45.6) L 06/11/20 05:30 MCV 96 fl (84-94) H 06/11/20 05:30 MCH 31 pg (28-32) 06/11/20 05:30 MCHC 33 % (32-34) 06/11/20 05:30 RDW 14.1 % (13.2-15.2) 06/11/20 05:30 Plt Count 161 K/mm3 (140-440) 06/11/20 05:30 Lymph % (Auto) 6.0 % (13.4-35.0) L 06/11/20 05:30 [place] % (Auto) 4.8 % (0.0-7.3) 06/11/20 05:30 Eos % (Auto) 1.6 % (0.0-4.3) 06/11/20 05:30 Baso % (Auto) 0.4 % (0.0-1.8) 06/11/20 05:30 Lymph # (Auto) 0.8 K/mm3 (1.2-5.4) L 06/11/20 05:30 [place] # (Auto) 0.8 K/mm3 (0.0-0.8) 06/11/20 05:30 Eos # (Auto) 0.2 K/mm3 (0.0-0.4) 06/11/20 05:30 Baso # (Auto) 0.1 K/mm3 (0.0-0.1) 06/11/20 05:30 Add Manual Diff Complete 06/07/20 02:51 Total Counted 100 06/07/20 02:51 Seg Neutrophils % 87.2 % (40.0-70.0) H 06/11/20 05:30 Seg Neuts % (Manual) 66.0 % (40.0-70.0) 06/07/20 02:51 Band Neutrophils % 14.0 % 06/07/20 02:51 Lymphocytes % (Manual) 8.0 % (13.4-35.0) L 06/07/20 02:51 Monocytes % (Manual) 12.0 % (0.0-7.3) H 06/07/20 02:51 Nucleated RBC % Not Reportable 06/07/20 02:51 Seg Neutrophils # 12.2 K/mm3 (1.8-7.7) H 06/11/20 05:30 Seg Neutrophils # Man 3.5 K/mm3 (1.8-7.7) 06/07/20 02:51 Band Neutrophils # 0.7 K/mm3 06/07/20 02:51 Lymphocytes # (Manual) 0.4 K/mm3 (1.2-5.4) L 06/07/20 02:51 Abs React Lymphs (Man) 0.0 K/mm3 06/07/20 02:51 Monocytes # (Manual) 0.6 K/mm3 (0.0-0.8) 06/07/20 02:51 Eosinophils # (Manual) 0.0 K/mm3 (0.0-0.4) 06/07/20 02:51 Basophils # (Manual) 0.0 K/mm3 (0.0-0.1) 06/07/20 02:51 Metamyelocytes # 0.0 K/mm3 06/07/20 02:51 Myelocytes # 0.0 K/mm3 06/07/20 02:51 Promyelocytes # 0.0 K/mm3 06/07/20 02:51 Blast Cells # 0.0 K/mm3 06/07/20 02:51 WBC Morphology Not Reportable 06/07/20 02:51 Hypersegmented Neuts Not Reportable 06/07/20 02:51 Hyposegmented Neuts Not Reportable 06/07/20 02:51 Hypogranular Neuts Not Reportable 06/07/20 02:51 Smudge Cells Not Reportable 06/07/20 02:51 Toxic Granulation Not Reportable 06/07/20 02:51 Toxic Vacuolation Not Reportable 06/07/20 02:51 Dohle Bodies Not Reportable 06/07/20 02:51 Pelger-Huet Anomaly Not Reportable 06/07/20 02:51 Denys Rods Not Reportable 06/07/20 02:51 Platelet Estimate Consistent w auto 06/07/20 02:51 Clumped Platelets Not Reportable 06/07/20 02:51 Plt Clumps, EDTA Not Reportable 06/07/20 02:51 Large Platelets Not Reportable 06/07/20 02:51 Giant Platelets Not Reportable 06/07/20 02:51 Platelet Satelliting Not Reportable 06/07/20 02:51 Plt Morphology Comment Not Reportable 06/07/20 02:51 RBC Morphology Normal 06/07/20 02:51 Dimorphic RBCs Not Reportable 06/07/20 02:51 Polychromasia Not Reportable 06/07/20 02:51 Hypochromasia Not Reportable 06/07/20 02:51 Poikilocytosis Not Reportable 06/07/20 02:51 Anisocytosis Not Reportable 06/07/20 02:51 Microcytosis Not Reportable 06/07/20 02:51 Macrocytosis Not Reportable 06/07/20 02:51 Spherocytes Not Reportable 06/07/20 02:51 Pappenheimer Bodies Not Reportable 06/07/20 02:51 Sickle Cells Not Reportable 06/07/20 02:51 Target Cells Not Reportable 06/07/20 02:51 Tear Drop Cells Not Reportable 06/07/20 02:51 Ovalocytes Not Reportable 06/07/20 02:51 Helmet Cells Not Reportable 06/07/20 02:51 Brenner-Delta Bodies Not Reportable 06/07/20 02:51 Corry Rings Not Reportable 06/07/20 02:51 Dom Cells Not Reportable 06/07/20 02:51 Bite Cells Not Reportable 06/07/20 02:51 Crenated Cell Not Reportable 06/07/20 02:51 Elliptocytes Not Reportable 06/07/20 02:51 Acanthocytes (Spur) Not Reportable 06/07/20 02:51 Rouleaux Not Reportable 06/07/20 02:51 Hemoglobin C Crystals Not Reportable 06/07/20 02:51 Schistocytes Not Reportable 06/07/20 02:51 Malaria parasites Not Reportable 06/07/20 02:51 Chance Bodies Not Reportable 06/07/20 02:51 Hem Pathologist Commnt No 06/07/20 02:51 PT 16.3 Sec. (12.2-14.9) H 06/06/20 10:19 INR 1.33 (0.87-1.13) H 06/06/20 10:19 APTT 31.6 Sec. (24.2-36.6) 06/06/20 10:19 ABG pH 7.329 pH Units (7.350-7.450) L 06/06/20 11:18 ABG pCO2 27.8 mm Hg 06/06/20 11:18 ABG pO2 258.1 mm Hg (80.0-90.0) H 06/06/20 11:18 ABG HCO3 14.3 mmol/L (20.0-26.0) L 06/06/20 11:18 ABG O2 Saturation 99.4 % (95.0-99.0) H 06/06/20 11:18 ABG O2 Content 13.2 (0.0-44) 06/06/20 11:18 ABG Base Excess -10.5 mmol/L (-2.0-3.0) L 06/06/20 11:18 ABG Hemoglobin 9.1 gm/dl (14.0-18.0) L 06/06/20 11:18 ABG Carboxyhemoglobin 1.3 % (0.0-5.0) 06/06/20 11:18 ABG Methemoglobin Not Reportable 06/06/20 11:18 VBG pH 7.438 (7.320-7.420) H 06/06/20 10:19 Oxyhemoglobin 98.2 % (95.0-99.0) 06/06/20 11:18 FiO2 21 % 06/06/20 11:18 Sodium 151 mmol/L (137-145) H 06/11/20 05:30 Potassium 3.4 mmol/L (3.6-5.0) L 06/11/20 05:30 Chloride 115.1 mmol/L (98-107) H 06/11/20 05:30 Carbon Dioxide 21 mmol/L (22-30) L 06/11/20 05:30 Anion Gap 18 mmol/L 06/11/20 05:30 BUN 69 mg/dL (9-20) H 06/11/20 05:30 Creatinine 2.2 mg/dL (0.8-1.3) H 06/11/20 05:30 Estimated GFR 35 ml/min 06/11/20 05:30 BUN/Creatinine Ratio 31 % 06/11/20 05:30 Glucose 118 mg/dL (75-100) H 06/11/20 05:30 POC Glucose 78 mg/dL (70-105) 06/10/20 16:58 Lactic Acid 1.50 mmol/L (0.7-2.0) 06/08/20 05:15 Calcium 7.8 mg/dL (8.4-10.2) L 06/11/20 05:30 Iron 54 ug/dL (49-181) 06/10/20 10:44 TIBC 157 mcg/dL (250-450) L 06/10/20 10:44 Ferritin 569.5 ng/mL (30.0-300.0) H 06/10/20 10:44 Total Bilirubin 0.40 mg/dL (0.1-1.2) 06/07/20 02:51 AST 135 units/L (5-40) H 06/07/20 02:51 ALT 70 units/L (7-56) H 06/07/20 02:51 Alkaline Phosphatase 82 units/L (35-129) 06/07/20 02:51 Ammonia 64.0 umol/L (25-60) H 06/06/20 10:19 Total Creatine Kinase 1212 units/L (55-170) H 06/09/20 12:57 CK-MB (CK-2) 12.1 ng/mL (0.0-4.0) H 06/09/20 12:57 CK-MB (CK-2) Rel Index 0.9 (0-4) 06/09/20 12:57 Troponin T 0.170 ng/mL (0.00-0.029) H* D 06/11/20 05:30 Total Protein 6.2 g/dL (6.3-8.2) L 06/07/20 02:51 Albumin 3.2 g/dL (3.9-5) L 06/07/20 02:51 Albumin/Globulin Ratio 1.1 % 06/07/20 02:51 Triglycerides 103 mg/dL (2-149) 06/06/20 10:19 Cholesterol 84 mg/dL (50-199) 06/06/20 10:19 LDL Cholesterol Direct 28 mg/dL (50-130) L 06/06/20 10:19 HDL Cholesterol 44 mg/dL (40-59) 06/06/20 10:19 Cholesterol/HDL Ratio 1.90 % 06/06/20 10:19 Vitamin B12 1170 pg/mL (211-911) H 06/10/20 14:49 TSH 4.440 mlU/mL (0.270-4.200) H 06/06/20 10:19 Free T4 1.55 ng/dL (0.76-1.46) H 06/06/20 10:19 PTH Intact 271.9 pg/mL (15-65) H 06/08/20 05:15 Urine Color Yellow (Yellow) 06/06/20 14:02 Urine Turbidity Cloudy (Clear) 06/06/20 14:02 Urine pH 6.0 (5.0-7.0) 06/06/20 14:02 Ur Specific [place] 1.013 (1.003-1.030) 06/06/20 14:02 Urine Protein 100 mg/dl mg/dL (Negative) 06/06/20 14:02 Urine Glucose (UA) Neg mg/dL (Negative) 06/06/20 14:02 Urine Ketones Neg mg/dL (Negative) 06/06/20 14:02 Urine Blood Sm (Negative) 06/06/20 14:02 Urine Nitrite Neg (Negative) 06/06/20 14:02 Urine Bilirubin Neg (Negative) 06/06/20 14:02 Urine Urobilinogen < 2.0 mg/dL (<2.0) 06/06/20 14:02 Ur Leukocyte Esterase Lg (Negative) 06/06/20 14:02 Urine WBC (Auto) > 182.0 /HPF (0.0-6.0) H 06/06/20 14:02 Urine RBC (Auto) 55.0 /HPF (0.0-6.0) 06/06/20 14:02 U Epithel Cells (Auto) 1.0 /HPF (0-13.0) 06/06/20 14:02 Urine WBC Clumps 2+ /HPF 06/06/20 14:02 Urine Creatinine 57.0 mg/dL (0.1-20.0) H 06/06/20 21:05 Urine Sodium 85 mmol/L 06/06/20 21:05 Random Vancomycin 9.8 ug/mL (0-40.0) 06/09/20 04:30 Urine Opiates Screen Presumptive negative 06/06/20 14:02 Urine Methadone Screen Presumptive negative 06/06/20 14:02 Ur Barbiturates Screen Presumptive negative 06/06/20 14:02 Ur Phencyclidine Scrn Presumptive negative 06/06/20 14:02 Ur Amphetamines Screen Presumptive negative 06/06/20 14:02 U Benzodiazepines Scrn Presumptive negative 06/06/20 14:02 Urine Cocaine Screen Presumptive negative 06/06/20 14:02 U Marijuana (THC) Screen Presumptive negative 06/06/20 14:02 Drugs of Abuse Note Disclamer 06/06/20 14:02 Plasma/Serum Alcohol < 0.01 % (0-0.07) 06/06/20 10:19 C. difficile Tox (PCR) Negative (Negative) 06/08/20 Unknown Coronavirus (PCR) Negative (Negative) 06/07/20 09:15 Blood Type O POSITIVE 06/06/20 14:47 Antibody Screen Negative 06/06/20 14:47 Microbiology: Microbiology 06/06/20 10:19 Peripheral/Venous Blood Culture - Preliminary NO GROWTH AFTER 4 DAYS 06/08/20 10:11 Peripheral/Venous Blood Culture - Preliminary NO GROWTH AFTER 48 HOURS 06/08/20 10:11 Peripheral/Venous Blood Culture - Preliminary NO GROWTH AFTER 48 HOURS Hair/IV: Voiding Method Urinal Active Medications - Current Medications Current Medications: Generic Name Dose Route Start Last Admin Trade Name Freq PRN Reason Stop Dose Admin Acetaminophen 650 mg 06/06/20 15:00 Acetaminophen 325 Mg Tab PO Q6H PRN Pain, Mild (1-3) Albuterol 2.5 mg 06/06/20 15:00 Albuterol 2.5 Mg/3 Ml Nebu IH Q3HRT PRN Shortness Of Breath Allopurinol 100 mg 06/07/20 10:00 06/10/20 12:36 Allopurinol 100 Mg Tab PO 100 mg QDAY YELENA Administration Calcium Carbonate/Glycine 500 mg 06/07/20 10:00 06/10/20 12:37 Calcium Carbonate 500 Mg Tab Chew PO 500 mg QDAY YELENA Administration Cholecalciferol 2,000 unit 06/07/20 10:00 06/10/20 12:37 Cholecalciferol (Vit D3) 1000 Unit (25 Mcg) Tab PO 2,000 unit QDAY YELENA Administration Diclofenac Sodium 20 applic 06/07/20 10:00 06/10/20 12:38 Diclofenac Sodium 1% Topical Gel 100 Gm TP 20 applic QDAY YELENA Administration Dicyclomine HCl 10 mg 06/06/20 20:00 06/10/20 21:42 Dicyclomine 10 Mg Cap PO 10 mg TID YELENA Administration Famotidine 20 mg 06/08/20 11:00 06/10/20 12:36 Famotidine 20 Mg/2 Ml Inj IV 20 mg QDAY YELENA Administration Heparin Sodium (Porcine) 5,000 unit 06/07/20 22:00 06/10/20 21:34 Heparin 5,000 Unit/1 Ml Vial SUB-Q 5,000 unit Q12HR YELENA Administration Cefepime HCl 2 gm in 100 mls @ 200 mls/hr 06/07/20 22:00 06/10/20 21:33 Cefepime/Ns 2 Gm/100 Ml IV 06/11/20 22:29 200 mls/hr Q24HR@2200 YELENA Administration Magnesium Citrate 300 ml 06/06/20 16:20 Magnesium Citrate 300 Ml Oral Liqd PO QDAY PRN Constipation Metoprolol Tartrate 25 mg 06/09/20 22:00 06/10/20 21:33 Metoprolol Tartrate 25 Mg Tab PO 25 mg BID YELENA Administration Pravastatin Sodium 10 mg 06/06/20 22:00 06/10/20 21:33 Pravastatin 20 Mg Tab PO 10 mg QHS YELENA Administration Sodium Chloride 10 ml 06/06/20 15:00 06/10/20 21:37 Sodium Chloride 0.9% 10 Ml Flush Syringe IV 10 ml BID YELENA Administration Sodium Chloride 10 ml 06/06/20 15:00 Sodium Chloride 0.9% 10 Ml Flush Syringe IV PRN PRN LINE FLUSH Nutrition/Malnutrition Assess - Dietary Evaluation Nutrition/Malnutrition Findings: Nutrition Notes Start: 06/08/20 11:43 Freq: Status: Active Protocol: Document 06/10/20 14:41 CW (Rec: 06/10/20 14:48 CW [email or web address]) Nutrition Notes Initial or Follow up Reassessment Current Diagnosis Acute Kidney Injury,Diabetes, Hypertension Other Pertinent Diagnosis AMS, Dementia, UTI, metabolic encephalopathy, ?s/p CVA? Current Diet Mechanical soft diet Labs/Tests Na 146 BUN 84 Cr 2.7 Pertinent Medications reviewed Height 5 ft 8 in Weight 76.9 kg [place] Body Weight (kg) 70.00 BMI 25.7 Weight Status Appropriate Subjective/Other Information F/U for diet advancement. Pt diet advanced to mechanical sofr diet. RN rports pt is not eating much, only a few spoon fulls of applesauce but will consume liquids. Will order ONS. Percent of energy/protein needs met: negligible Burn Absent Trauma Absent GI Symptoms Diarrhea Difficulty In Swallowing Skin Integrity/Comment Stage 1 pressure ulcer Current % PO Poor (25-49%) Minimum of two criteria No Fluid Accumulation Mild (non-severe) #2 Nutrition Diagnosis Increased nutrient needs ( specify in comment below) Comments: protein Etiology wound healing Diagnosis Progress(for reassessment Continues documentation) #1 Nutrition Diagnosis Inadequate oral intake As Evidenced by Signs and Symptoms ST approved pt for PO diet Diagnosis Progress(for reassessment Improved documentation) Is patient on ventilator? No Is Patient Ambulatory and/or Out of Bed Yes REE-([facility]-ambulatory/OOB) [ [id number] [id number]] Calculation Used for Recommendations [facility] Additional Notes protein needs: 62 - 153g (0.8 - 1.2g/kgBW for ISAAC) fluid needs: 1 ml/kcal Nutrition Intervention Change Diet Order: Continue Mechanical Soft Diet, Initiate ONS Add Supplement/Snack (indicate name/kcal Nepro BID /protein ) Provides kCal: 850 Provides Protein (gm) 38 Goal #1 Meet at least 75% of kcal and proteins via PO Goal #2 wound healing Anticipated Discharge Needs: Mechanical Soft diet + ONS PRN Follow-Up By: 06/13/20 Additional Comments F/U intakes and ONS tolerance
[2020-06-11] MEDS: CHOLECALCIFEROL (VIT D3) 1000 UNIT (25 mcg) TAB PO SCH (09:24)
[2020-06-11] MEDS: CALCIUM CARBONATE 500 MG TAB CHEW PO SCH (09:24)
[2020-06-11] MEDS: FAMOTIDINE 20 MG/2 ML INJ IV SCH (09:24)
[2020-06-11] MEDS: DICYCLOMINE 10 MG CAP PO SCH ×3 (09:24→21:51)
[2020-06-11] MEDS: POTASSIUM CHLORIDE ER 20 MEQ TAB PO SCH ×2 (09:24→12:25)
[2020-06-11] MEDS: METOPROLOL TARTRATE 25 MG TAB PO SCH ×2 (09:25→21:51)
[2020-06-11] MEDS: allopurinoL 100 MG TAB PO SCH (09:25)
[2020-06-11] MEDS: DICLOFENAC SODIUM 1% TOPICAL GEL 100 GM TP SCH (09:25)
[2020-06-11] MEDS: HEPARIN 5,000 UNIT/1 ML VIAL SUB-Q SCH ×2 (09:26→21:53)
--- NOTE | 2020-06-11 10:36 | Progress Note ---
Assessment and Plan 80 Male NSTEMI type II Sepsis/UTI ISAAC on CKD Anemia Leukocytosis Acute encephalopathy/Dementia Atrial FIB (transient) DCM EF 15-20% LBBB Diabetes ECHO 06/06/20: EF 15-20%, mild LVH, trace MR/TR Tele reviewed: Sinus rhythm Appears compensated from HF standpoint Conservative cardiac management given pt's advanced age, dementia and multiple co-morbidities. Consider stress testing for further evaluation of newly diagnosed CMP and LBBB once medically stabilized (can be done as OP) Continue Metoprolol 25mg PO BID as tolerated Subjective Date of service: 06/11/20 Principal diagnosis: shock Interval history: Patient sitting up in bed without complaints. He states that he is a little sleepy this morning. Objective Vital Signs Temp Pulse Pulse Resp BP BP Pulse Ox 06/11/20 09:44 152/74 06/11/20 09:25 87 160/75 06/11/20 09:21 97.6 F 87 16 160/75 99 06/11/20 08:57 96 06/11/20 05:32 99.6 F 86 20 137/60 98 06/11/20 00:28 84 100 06/11/20 00:11 20 127/59 06/10/20 22:00 87 06/10/20 21:33 93 H 114/56 06/10/20 20:26 97 06/10/20 20:16 98.9 F 93 H 20 114/56 97 06/10/20 15:22 98.6 F 89 20 139/70 96 06/10/20 11:33 98.8 F 91 H 20 143/67 96 - Physical Examination General: No Apparent Distress HEENT: Positive: PERRL, Normocephaly, Mucus Membranes Moist Neck: Positive: neck supple, trachea midline Cardiac: Positive: Reg Rate and Rhythm Lungs: Positive: Decreased Breath Sounds Abdomen: Positive: Active Bowel Sounds. Negative: Tender Skin: Negative: Rash Musculoskeletal: No Pain Extremities: Absent: edema - Labs and Meds CBC 06/11/20 Range/Units 05:30 WBC 14.0 H (4.5-11.0) K/mm3 RBC 2.56 L (3.65-5.03) M/mm3 Hgb 8.0 L (11.8-15.2) gm/dl Hct 24.5 L (35.5-45.6) % Plt Count 161 (140-440) K/mm3 Lymph # (Auto) 0.8 L (1.2-5.4) K/mm3 [place] # (Auto) 0.8 (0.0-0.8) K/mm3 Eos # (Auto) 0.2 (0.0-0.4) K/mm3 Baso # (Auto) 0.1 (0.0-0.1) K/mm3 Comprehensive Metabolic Panel 06/11/20 Range/Units 05:30 Sodium 151 H (137-145) mmol/L Potassium 3.4 L (3.6-5.0) mmol/L Chloride 115.1 H (98-107) mmol/L Carbon Dioxide 21 L (22-30) mmol/L BUN 69 H (9-20) mg/dL Creatinine 2.2 H (0.8-1.3) mg/dL Glucose 118 H (75-100) mg/dL Calcium 7.8 L (8.4-10.2) mg/dL - Imaging and Cardiology EKG: report reviewed, image reviewed Echo: report reviewed (06/06/2020 showed EF 15-20%, LV borderline dilated, no significant valvular abnormalities. ) Cardiac cath: report reviewed (1998 - no significant findings) - EKG Sinus rhythms and dysrhythmias: sinus rhythm AV and intraventricular conduction: left bundle branch block
--- NOTE | 2020-06-11 12:56 | Progress Note ---
Assessment and Plan 1. Acute kidney injury: Vasomotor ISAAC in the setting of shock. Renal US ordered negative for hydro. Baseline renal function is unknown. Monitor renal function. Creatinine level is improving. Avoid nephrotoxic agents. Meds dosage based on GFR. 2. FEN: Hyeprnatremia, started on Iv D5W. Hypokalemia, replete K, monitor. Anion-gap metabolic acidosis, monitor. Monitor lytes and volume status. 3. Sepsis with shock: Currently off pressors. Monitor BP. 4. UTI: Abx per ID. 5. Acute hypoxemic respiratory failure: CXR clear. COVID test negative. NC O2 as needed. 6. Diarrhea: ?Colitis. C.diff negative. 7. R kidney mass: Further testing depends on clinical course. 8. Metabolic encephalopathy: Monitor. 9. H/o Dementia: Supportive care. 10. H/o HTN: Monitor BP. 11. Anemia, POA: Monitor. Subjective: Patient was seen and examined at the bedside. No new complaint. Objective: General appearance: well-developed, appears stated age, not in distress HEENT: ATNC Neck: trachea midline Respiratory: ctab Heart: regular, S1S2, no murmur Gastrointestinal: soft, normoactive bowel sounds, not tender Integumentary: no rash, warm and dry Ext: no edema Neurologic: alert, able to tell his name, able to move extremities Ext: trace edema : Hair catheter Subjective Date of service: 06/11/20 Principal diagnosis: shock Objective - Vital Signs Vital signs: Vital Signs - 12hr 06/11/20 06/11/20 06/11/20 05:32 08:57 09:21 Temperature 99.6 F 97.6 F Pulse Rate 86 Pulse Rate [ 87 Right Radial] Respiratory 20 16 Rate Blood Pressure 137/60 160/75 Blood Pressure [Left] O2 Sat by Pulse 98 96 99 Oximetry 06/11/20 06/11/20 06/11/20 09:25 09:44 10:00 Temperature Pulse Rate 87 87 Pulse Rate [ Right Radial] Respiratory Rate Blood Pressure 160/75 Blood Pressure 152/74 [Left] O2 Sat by Pulse Oximetry - Lab 06/11/20 05:30 06/11/20 05:30 Most recent lab results ABG pH 7.329 pH Units (7.350-7.450) L 06/06/20 11:18 ABG pCO2 27.8 mm Hg 06/06/20 11:18 ABG pO2 258.1 mm Hg (80.0-90.0) H 06/06/20 11:18 ABG HCO3 14.3 mmol/L (20.0-26.0) L 06/06/20 11:18 ABG O2 Saturation 99.4 % (95.0-99.0) H 06/06/20 11:18 Calcium 7.8 mg/dL (8.4-10.2) L 06/11/20 05:30 Urine Creatinine 57.0 mg/dL (0.1-20.0) H 06/06/20 21:05 Urine Sodium 85 mmol/L 06/06/20 21:05 Medications & Allergies - Medications Allergies/Adverse Reactions: Allergies No Known Allergies Allergy (Verified 06/06/20 15:21) Home Medications: Home Medications Medication Instructions Recorded Confirmed Last Taken Type Amlodipine Besylate [Norvasc] 5 mg PO QDAY 06/06/20 06/06/20 Unknown History Bisacodyl [Women's Gentle Laxative] 5 mg PO BID 06/06/20 06/06/20 Unknown History Calcium Carb/Magnesium Hydrox 500 mg PO QDAY 06/06/20 06/06/20 Unknown History [Antacid 1000-200 mg Tab Chew] Cholecalciferol (Vitamin D3) 2,000 unit PO QDAY 06/06/20 06/06/20 Unknown History [Vitamin D3 2,000 UNIT CAP] Dextrose/Dextrin/Maltose 24 gm PO ONCE 06/06/20 06/06/20 Unknown History [Insta-Glucose Gel] Diclofenac 1% [Diclofenac 1% 100 gm TP QDAY 06/06/20 06/06/20 Unknown History topical gel] Dicyclomine [Bentyl] 10 mg PO TID 06/06/20 06/06/20 Unknown History Docusate Sodium [Colace] 100 mg PO BID PRN 06/06/20 06/06/20 Unknown History Furosemide [Lasix] 40 mg PO QDAY 06/06/20 06/06/20 Unknown History Insulin Lispro [Insulin Lispro 10 unit SQ TID 06/06/20 06/06/20 Unknown History Kwikpen U-100] Magnesium Citrate [Citroma] 296 ml PO QDAY 06/06/20 06/06/20 Unknown History Melatonin [Melatonin 3MG TAB] 6 mg PO QHS 06/06/20 06/06/20 Unknown History Oxycodone HCl/Acetaminophen 1 each PO QDAY 06/06/20 06/06/20 Unknown History [Oxycodone-Acetaminophen 10-325] Pantoprazole [Protonix] 40 mg PO QDAY 06/06/20 06/06/20 Unknown History Pioglitazone HCl [Actos] 30 mg PO QDAY 06/06/20 06/06/20 Unknown History Polyethylene Glycol 3350 [Gavilax] 10 gm PO QDAY 06/06/20 06/06/20 Unknown History Pravastatin Sodium [Pravastatin] 10 mg PO QHS 06/06/20 06/06/20 Unknown History Tamsulosin [Flomax] 0.4 mg PO QDAY 06/06/20 06/06/20 Unknown History allopurinoL [Zyloprim] 100 mg PO QDAY 06/06/20 06/06/20 Unknown History lisinopriL [Lisinopril] 20 mg PO QDAY 06/06/20 06/06/20 Unknown History Active Medications: Generic Name Dose Route Start Last Admin Trade Name Freq PRN Reason Stop Dose Admin Acetaminophen 650 mg 06/06/20 15:00 Acetaminophen 325 Mg Tab PO Q6H PRN Pain, Mild (1-3) Albuterol 2.5 mg 06/06/20 15:00 Albuterol 2.5 Mg/3 Ml Nebu IH Q3HRT PRN Shortness Of Breath Allopurinol 100 mg 06/07/20 10:00 06/11/20 09:25 Allopurinol 100 Mg Tab PO 100 mg QDAY YELENA Administration Calcium Carbonate/Glycine 500 mg 06/07/20 10:00 06/11/20 09:24 Calcium Carbonate 500 Mg Tab Chew PO 500 mg QDAY YELENA Administration Cholecalciferol 2,000 unit 06/07/20 10:00 06/11/20 09:24 Cholecalciferol (Vit D3) 1000 Unit (25 Mcg) Tab PO 2,000 unit QDAY YELENA Administration Diclofenac Sodium 20 applic 06/07/20 10:00 06/11/20 09:25 Diclofenac Sodium 1% Topical Gel 100 Gm TP 20 applic QDAY YELENA Administration Dicyclomine HCl 10 mg 06/06/20 20:00 06/11/20 09:24 Dicyclomine 10 Mg Cap PO 10 mg TID YELENA Administration Famotidine 20 mg 06/08/20 11:00 06/11/20 09:24 Famotidine 20 Mg/2 Ml Inj IV 20 mg QDAY YELENA Administration Heparin Sodium (Porcine) 5,000 unit 06/07/20 22:00 06/11/20 09:26 Heparin 5,000 Unit/1 Ml Vial SUB-Q 5,000 unit Q12HR YELENA Administration Cefepime HCl 2 gm in 100 mls @ 200 mls/hr 06/07/20 22:00 06/10/20 21:33 Cefepime/Ns 2 Gm/100 Ml IV 06/11/20 22:29 200 mls/hr Q24HR@2200 YELENA Administration Magnesium Citrate 300 ml 06/06/20 16:20 Magnesium Citrate 300 Ml Oral Liqd PO QDAY PRN Constipation Metoprolol Tartrate 25 mg 06/09/20 22:00 06/11/20 09:25 Metoprolol Tartrate 25 Mg Tab PO 25 mg BID YELENA Administration Pravastatin Sodium 10 mg 06/06/20 22:00 06/10/20 21:33 Pravastatin 20 Mg Tab PO 10 mg QHS YELENA Administration Sodium Chloride 10 ml 06/06/20 15:00 06/11/20 09:25 Sodium Chloride 0.9% 10 Ml Flush Syringe IV 10 ml BID YELENA Administration Sodium Chloride 10 ml 06/06/20 15:00 Sodium Chloride 0.9% 10 Ml Flush Syringe IV PRN PRN LINE FLUSH
[2020-06-11] MEDS: DEXTROSE 5% IN WATER 1,000 ML IV SCH (14:52)
--- NOTE | 2020-06-11 18:14 | Consultation ---
REFERRING PHYSICIAN: Rodrick De Leon MD. INDICATIONS: 1. Abdominal pain. 2. Colitis. HISTORY OF PRESENT ILLNESS: The patient is a 80-year-old black male with history of vascular dementia, diabetes, presents for GI evaluation. The patient presented and was admitted on 06/06/2020. He was found unresponsive. The patient was hypertensive at that time and found in distress and subsequently brought to the hospital. He subsequently was diagnosed with a urinary tract infection. The patient was subsequently admitted. The patient started to have some abdominal pain and subsequently had a CT scan. CT scan showed signs of colitis. GI is consulted to aid in management. The patient reports mild lower abdominal pain. Denies any rectal bleeding. Denies any loose stools. The patient is unable to say when his last colonoscopy was. No other specific GI complaints. PAST MEDICAL HISTORY: 1. Diabetes. 2. Vascular dementia. 3. Atherosclerosis. MEDICATIONS: Reviewed and updated in chart. ALLERGIES: No known drug allergies. SOCIAL HISTORY: Denies alcohol, tobacco or drug abuse. FAMILY HISTORY: Negative for colon cancer, IBD or liver disease. REVIEW OF SYSTEMS: GENERAL: Reports some weakness. HEENT: No visual complaints or tinnitus. PULMONARY: No shortness of breath. No cough. No chest pain. GASTROINTESTINAL: Reports some abdominal pain. All points of 13-point review of systems otherwise negative. PHYSICAL EXAMINATION: VITAL SIGNS: Temperature of 97.6, pulse 87, respirations 16, blood pressure 160/75. GENERAL: Fairly nourished black male in mild distress. HEENT: Pupils equal, round and reactive. PULMONARY: Rhonchi. CARDIOVASCULAR: Regular rhythm. Normal S1, S2. ABDOMEN: Palpable soft, very mild lower abdominal discomfort, no guarding, no rebound. SKIN: No obvious rashes. LABORATORY DATA: Pertinent for white count of 14, hemoglobin and hematocrit of 8 and 24.5, platelet count of 161. Chem-7, sodium of 151, potassium 3.4, chloride 115, CO2 of 21, BUN and creatinine of [address] scan of abdomen and pelvis performed on 06/10/2020 without contrast showed descending colon colitis from the splenic flexure to the rectum consistent with ischemic colitis versus other, also some signs of anasarca. ASSESSMENT AND PLAN: The patient is a 80-year-old male presented on 06/06/2020 with hypertensive shock and sepsis with noted urinary tract infection, now been seen by GI for noted colitis and abdominal pain. The patient's exam today is for the most part stabilizing and he is having no severe lower pain. I suspect the patient has ischemic colitis, most likely due to hypertensive episode sustained earlier. Management is noted below. PLAN: 1. Review CT scan. 2. Continue current antibiotics including cefepime as ordered. May add Flagyl. 3. Mechanical soft diet as ordered and we will watch for progress. 4. No plans for colonoscopy at this time. 5. Antiemetics and pain medications per primary team. 6. We will follow further recommendation based on progress. JOB# [id number] CAB/NTS
[2020-06-11] MEDS: CEFEPIME/NS 2 GM/100 ML 2 GM/100 ML BAG IV SCH (21:51)
[2020-06-11] MEDS: ACETAMINOPHEN 325 MG TAB PO PRN (21:52)
[2020-06-11] MEDS: PRAVASTATIN 20 MG TAB PO SCH (21:52)
[2020-06-12 06:12] LABS: Hematocrit 26.5 % (35.5-45.6); Hemoglobin 8.6 gm/dl (11.8-15.2); Mean Corpuscular HGB Conc 32 % (32-34); Mean Corpuscular Volume 99 fl (84-94); Platelet Count 105 K/mm3 (140-440); Red Blood Count 2.68 M/mm3 (3.65-5.03); Red Cell Distribution Width 14.3 % (13.2-15.2)
[2020-06-12 06:39] LABS: Calcium 8.1 mg/dL (8.4-10.2)
[2020-06-12 07:20] LABS: Band Neutrophils # (Manual) 0.4 K/mm3; Total Cells Counted 100
[2020-06-12 07:21] LABS: Anisocytosis 1+; Macrocytosis 1+; Platelet Estimate Consistent w Auto
[2020-06-12] MEDS ORDERED: POTASSIUM CHLORIDE ER 20 MEQ TAB PO ONE (08:53)
--- NOTE | 2020-06-12 09:08 | Progress Note ---
Assessment and Plan Assessment and plan: This is a 80-year-old male who is a resident of assisted living facility with vascular dementia, cerebral sclerosis, debility, diabetes mellitus who presents to the emergency department on 06/06 with complaints of lethargy and diminished cognition as per daughter he developed an episode of unresponsiveness while at breakfast at at his assisted living facility. Patient was found to have a urinary tract infection complicated by sepsis and septic shock, acute kidney injury, toxic metabolic encephalopathy as well as metabolic acidosis. Patient was hypotensive with systolic blood pressures in the 50s and was initiated on vasopressor support in the emergency department. Patient was admitted to the [facility] with consults to nephrology and [facility]. Septic Shock Metabolic encephalopathy Coag negative Staphylococcus 03/07 bottles Urinary tract infection Acute hypoxic respiratory failure Acute kidney injury Metabolic acidosis Diarrhea Dementia Hypertension Anemia 06/07: Patient remains on dopamine, vasopressin and Levophed. Nephrology has started the patient on sodium bicarbonate drip for metabolic acidosis. Infectious disease initiated vancomycin in addition to the cefepime and ordered a C. difficile. 06/08: Patient has gram-positive cocci bacteremia in 03/07 bottles which grew to be coag negative staph coccus and he has repeat blood cultures in progress. Urine culture has no growth to date and he is on IV vancomycin and cefepime. Yesterday we ordered a C. difficile PCR which is pending. Patient had a moment of tachycardia into the 130s and a stat EKG was obtained. Patient was given amiodarone bolus by [facility] and cardiology was consulted. Patient is hyperchloremic today however his metabolic acidosis and BUN/creatinine is slightly improved to 93/3.2 from 100/3.6 and his repeat lactic acid is 1.5. At the time my examination patient was on Levophed at 6, vasopressin 0.03 and dopamine at 6. This morning patient failed his swallow eval and ST evaluation was ordered. Of note patient's echocardiogram shows reduced 15 to 20% with borderline left ventricular hypertrophy. 06/09: This morning his speech evaluation was completed and he has been cleared for mechanical soft diet with thin liquids. Patient complained of right-sided chest pain with radiation to shoulders and a stat EKG cardiac enzymes were ordered. Patient was recultured yesterday and those have no growth to date and his vancomycin was stopped. Infectious disease team recommends removal of Hair catheter when feasible and a CT abdomen/pelvis when stable. Patient has been cleared to transfer to the floor by cardiology and [facility]. 06/10/2020; patient is on IV cefepime for sepsis due to UTI day 3 out of 5. Vanc omycin discontinued. Patient is complaining pleuritic chest pain. Patient was evaluated by cardiology for elevated troponin and episode of A. fib on admission. Cardiology discontinued amiodarone and put her on Lopressor. Cardiology recommend against anticoagulation because of patient's anemia. Hemoglobin this morning was 7.4 and anemia work-up is in progress. I did ordered CT abdomen and pelvis. PT OT evaluation. Patient has ISAAC and nephrology is following. Patient has rectal tube and liquid stool in the bag. I ordered stool for C. difficile. We will continue to monitor. 06/11/2020; patient is on cefepime day 4/5. CT abdomen and pelvis was done and significant for colitis, ischemic colitis is possibility given hypotension and elevated lactic acid level. I will consult GI. Patient has episode of A. fib for less than 24 hours, cardiology was consulted and recommend to be on L opressor. No need for coagulation because of his anemia. Hemoglobin this morning is improved to 8. Anemia work-up was done, no iron deficiency anemia identified. ISAAC is improving. C. difficile was negative. 06/12/2020; continue cefepime per ID recommendation. CT abdomen and pelvis is significant for ischemic colitis likely due to septic shock, hypotension. Patient was seen by GI and recommend no further intervention at this time. Patient had episode of A. fib on admission for less than 24 hours and cardiology recommend to continue on Lopressor, no anticoagulation needed. Hemoglobin is improving. Patient came from assisted living facility. Patient need Covid test before discharge. ISAAC is improving. Creatinine this morning was 1.7. Nephrology is following. OT evaluated and recommend subacute rehab, PT evaluation is pending. History Interval history: Patient was seen and evaluated this morning Patient was calm and cooperative but demented Patient did not have any complaints He has rectal tube in place, and there is liquid stool in the bag Hospitalist Physical - Physical exam Narrative exam: Not in cardiopulmonary distress. The patient appeared well nourished and normally developed. Vital signs as documented. Head exam is unremarkable. No scleral icterus . Neck is without jugular venous distension, thyromegaly, or carotid bruits. Lungs are clear to auscultation. Cardiac exam reveals regular rate and Rhythm. Abdominal exam reveals normal bowel sounds, nontender, no organomegaly. Rectal tube in place. Extremities are nonedematous and both femoral and pedal pulses are normal. 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 - Constitutional Vitals: Temp Pulse Resp BP Pulse Ox 98.8 F 91 H 18 141/115 98 06/12/20 08:12 06/12/20 08:41 06/12/20 04:48 06/12/20 08:41 06/12/20 08:41 General appearance: Present: no acute distress, well-nourished HEART Score - HEART Score Troponin: Troponin T 0.170 ng/mL (0.00-0.029) H* D 06/11/20 05:30 Results - Labs CBC & Chem 7: 06/12/20 05:24 06/12/20 05:24 Labs: Laboratory Last Values WBC 13.7 K/mm3 (4.5-11.0) H 06/12/20 05:24 RBC 2.68 M/mm3 (3.65-5.03) L 06/12/20 05:24 Hgb 8.6 gm/dl (11.8-15.2) L 06/12/20 05:24 Hct 26.5 % (35.5-45.6) L 06/12/20 05:24 MCV 99 fl (84-94) H 06/12/20 05:24 MCH 32 pg (28-32) 06/12/20 05:24 MCHC 32 % (32-34) 06/12/20 05:24 RDW 14.3 % (13.2-15.2) 06/12/20 05:24 Plt Count 105 K/mm3 (140-440) L 06/12/20 05:24 Lymph % (Auto) 6.0 % (13.4-35.0) L 06/11/20 05:30 [place] % (Auto) 4.8 % (0.0-7.3) 06/11/20 05:30 Eos % (Auto) 1.6 % (0.0-4.3) 06/11/20 05:30 Baso % (Auto) 0.4 % (0.0-1.8) 06/11/20 05:30 Lymph # (Auto) 0.8 K/mm3 (1.2-5.4) L 06/11/20 05:30 [place] # (Auto) 0.8 K/mm3 (0.0-0.8) 06/11/20 05:30 Eos # (Auto) 0.2 K/mm3 (0.0-0.4) 06/11/20 05:30 Baso # (Auto) 0.1 K/mm3 (0.0-0.1) 06/11/20 05:30 Add Manual Diff Complete 06/12/20 05:24 Total Counted 100 06/12/20 05:24 Seg Neutrophils % 87.2 % (40.0-70.0) H 06/11/20 05:30 Seg Neuts % (Manual) 82.0 % (40.0-70.0) H 06/12/20 05:24 Band Neutrophils % 3.0 % 06/12/20 05:24 Lymphocytes % (Manual) 10.0 % (13.4-35.0) L 06/12/20 05:24 Reactive Lymphs % (Man) 1.0 % 06/12/20 05:24 Monocytes % (Manual) 2.0 % (0.0-7.3) 06/12/20 05:24 Eosinophils % (Manual) 2.0 % (0.0-4.3) 06/12/20 05:24 Nucleated RBC % Not Reportable 06/12/20 05:24 Seg Neutrophils # 12.2 K/mm3 (1.8-7.7) H 06/11/20 05:30 Seg Neutrophils # Man 11.2 K/mm3 (1.8-7.7) H 06/12/20 05:24 Band Neutrophils # 0.4 K/mm3 06/12/20 05:24 Lymphocytes # (Manual) 1.4 K/mm3 (1.2-5.4) 06/12/20 05:24 Abs React Lymphs (Man) 0.1 K/mm3 06/12/20 05:24 Monocytes # (Manual) 0.3 K/mm3 (0.0-0.8) 06/12/20 05:24 Eosinophils # (Manual) 0.3 K/mm3 (0.0-0.4) 06/12/20 05:24 Basophils # (Manual) 0.0 K/mm3 (0.0-0.1) 06/12/20 05:24 Metamyelocytes # 0.0 K/mm3 06/12/20 05:24 Myelocytes # 0.0 K/mm3 06/12/20 05:24 Promyelocytes # 0.0 K/mm3 06/12/20 05:24 Blast Cells # 0.0 K/mm3 06/12/20 05:24 WBC Morphology Not Reportable 06/12/20 05:24 Hypersegmented Neuts Not Reportable 06/12/20 05:24 Hyposegmented Neuts Not Reportable 06/12/20 05:24 Hypogranular Neuts Not Reportable 06/12/20 05:24 Smudge Cells Not Reportable 06/12/20 05:24 Toxic Granulation Not Reportable 06/12/20 05:24 Toxic Vacuolation Not Reportable 06/12/20 05:24 Dohle Bodies Not Reportable 06/12/20 05:24 Pelger-Huet Anomaly Not Reportable 06/12/20 05:24 Denys Rods Not Reportable 06/12/20 05:24 Platelet Estimate Consistent w auto 06/12/20 05:24 Clumped Platelets Not Reportable 06/12/20 05:24 Plt Clumps, EDTA Not Reportable 06/12/20 05:24 Large Platelets Not Reportable 06/12/20 05:24 Giant Platelets Not Reportable 06/12/20 05:24 Platelet Satelliting Not Reportable 06/12/20 05:24 Plt Morphology Comment Not Reportable 06/12/20 05:24 RBC Morphology Not Reportable 06/12/20 05:24 Dimorphic RBCs Not Reportable 06/12/20 05:24 Polychromasia Not Reportable 06/12/20 05:24 Hypochromasia Not Reportable 06/12/20 05:24 Poikilocytosis Not Reportable 06/12/20 05:24 Anisocytosis 1+ 06/12/20 05:24 Microcytosis Not Reportable 06/12/20 05:24 Macrocytosis 1+ 06/12/20 05:24 Spherocytes Not Reportable 06/12/20 05:24 Pappenheimer Bodies Not Reportable 06/12/20 05:24 Sickle Cells Not Reportable 06/12/20 05:24 Target Cells Not Reportable 06/12/20 05:24 Tear Drop Cells Not Reportable 06/12/20 05:24 Ovalocytes Not Reportable 06/12/20 05:24 Helmet Cells Not Reportable 06/12/20 05:24 [place] Bodies Not Reportable 06/12/20 05:24 [place] Rings Not Reportable 06/12/20 05:24 Dom Cells Not Reportable 06/12/20 05:24 Bite Cells Not Reportable 06/12/20 05:24 Crenated Cell Not Reportable 06/12/20 05:24 Elliptocytes Not Reportable 06/12/20 05:24 Acanthocytes (Spur) Not Reportable 06/12/20 05:24 Rouleaux Not Reportable 06/12/20 05:24 Hemoglobin C Crystals Not Reportable 06/12/20 05:24 Schistocytes Not Reportable 06/12/20 05:24 Malaria parasites Not Reportable 06/12/20 05:24 Chance Bodies Not Reportable 06/12/20 05:24 Hem Pathologist Commnt No 06/12/20 05:24 PT 16.3 Sec. (12.2-14.9) H 06/06/20 10:19 INR 1.33 (0.87-1.13) H 06/06/20 10:19 APTT 31.6 Sec. (24.2-36.6) 06/06/20 10:19 ABG pH 7.329 pH Units (7.350-7.450) L 06/06/20 11:18 ABG pCO2 27.8 mm Hg 06/06/20 11:18 ABG pO2 258.1 mm Hg (80.0-90.0) H 06/06/20 11:18 ABG HCO3 14.3 mmol/L (20.0-26.0) L 06/06/20 11:18 ABG O2 Saturation 99.4 % (95.0-99.0) H 06/06/20 11:18 ABG O2 Content 13.2 (0.0-44) 06/06/20 11:18 ABG Base Excess -10.5 mmol/L (-2.0-3.0) L 06/06/20 11:18 ABG Hemoglobin 9.1 gm/dl (14.0-18.0) L 06/06/20 11:18 ABG Carboxyhemoglobin 1.3 % (0.0-5.0) 06/06/20 11:18 ABG Methemoglobin Not Reportable 06/06/20 11:18 VBG pH 7.438 (7.320-7.420) H 06/06/20 10:19 Oxyhemoglobin 98.2 % (95.0-99.0) 06/06/20 11:18 FiO2 21 % 06/06/20 11:18 Sodium 147 mmol/L (137-145) H 06/12/20 05:24 Potassium 3.1 mmol/L (3.6-5.0) L 06/12/20 05:24 Chloride 112.4 mmol/L (98-107) H 06/12/20 05:24 Carbon Dioxide 24 mmol/L (22-30) 06/12/20 05:24 Anion Gap 14 mmol/L 06/12/20 05:24 BUN 49 mg/dL (9-20) H 06/12/20 05:24 Creatinine 1.7 mg/dL (0.8-1.3) H 06/12/20 05:24 Estimated GFR 47 ml/min 06/12/20 05:24 BUN/Creatinine Ratio 29 % 06/12/20 05:24 Glucose 121 mg/dL (75-100) H 06/12/20 05:24 POC Glucose 128 mg/dL (70-105) H 06/11/20 21:00 Lactic Acid 1.50 mmol/L (0.7-2.0) 06/08/20 05:15 Calcium 8.1 mg/dL (8.4-10.2) L 06/12/20 05:24 Phosphorus 2.10 mg/dL (2.5-4.5) L 06/12/20 05:24 Magnesium 1.30 mg/dL (1.7-2.3) L 06/12/20 05:24 Iron 54 ug/dL (49-181) 06/10/20 10:44 TIBC 157 mcg/dL (250-450) L 06/10/20 10:44 Ferritin 569.5 ng/mL (30.0-300.0) H 06/10/20 10:44 Total Bilirubin 0.40 mg/dL (0.1-1.2) 06/07/20 02:51 AST 135 units/L (5-40) H 06/07/20 02:51 ALT 70 units/L (7-56) H 06/07/20 02:51 Alkaline Phosphatase 82 units/L (35-129) 06/07/20 02:51 Ammonia 64.0 umol/L (25-60) H 06/06/20 10:19 Total Creatine Kinase 1212 units/L (55-170) H 06/09/20 12:57 CK-MB (CK-2) 12.1 ng/mL (0.0-4.0) H 06/09/20 12:57 CK-MB (CK-2) Rel Index 0.9 (0-4) 06/09/20 12:57 Troponin T 0.170 ng/mL (0.00-0.029) H* D 06/11/20 05:30 Total Protein 6.2 g/dL (6.3-8.2) L 06/07/20 02:51 Albumin 3.2 g/dL (3.9-5) L 06/07/20 02:51 Albumin/Globulin Ratio 1.1 % 06/07/20 02:51 Triglycerides 103 mg/dL (2-149) 06/06/20 10:19 Cholesterol 84 mg/dL (50-199) 06/06/20 10:19 LDL Cholesterol Direct 28 mg/dL (50-130) L 06/06/20 10:19 HDL Cholesterol 44 mg/dL (40-59) 06/06/20 10:19 Cholesterol/HDL Ratio 1.90 % 06/06/20 10:19 Vitamin B12 1170 pg/mL (211-911) H 06/10/20 14:49 TSH 4.440 mlU/mL (0.270-4.200) H 06/06/20 10:19 Free T4 1.55 ng/dL (0.76-1.46) H 06/06/20 10:19 PTH Intact 271.9 pg/mL (15-65) H 06/08/20 05:15 Urine Color Yellow (Yellow) 06/06/20 14:02 Urine Turbidity Cloudy (Clear) 06/06/20 14:02 Urine pH 6.0 (5.0-7.0) 06/06/20 14:02 Ur Specific [place] 1.013 (1.003-1.030) 06/06/20 14:02 Urine Protein 100 mg/dl mg/dL (Negative) 06/06/20 14:02 Urine Glucose (UA) Neg mg/dL (Negative) 06/06/20 14:02 Urine Ketones Neg mg/dL (Negative) 06/06/20 14:02 Urine Blood Sm (Negative) 06/06/20 14:02 Urine Nitrite Neg (Negative) 06/06/20 14:02 Urine Bilirubin Neg (Negative) 06/06/20 14:02 Urine Urobilinogen < 2.0 mg/dL (<2.0) 06/06/20 14:02 Ur Leukocyte Esterase Lg (Negative) 06/06/20 14:02 Urine WBC (Auto) > 182.0 /HPF (0.0-6.0) H 06/06/20 14:02 Urine RBC (Auto) 55.0 /HPF (0.0-6.0) 06/06/20 14:02 U Epithel Cells (Auto) 1.0 /HPF (0-13.0) 06/06/20 14:02 Urine WBC Clumps 2+ /HPF 06/06/20 14:02 Urine Creatinine 57.0 mg/dL (0.1-20.0) H 06/06/20 21:05 Urine Sodium 85 mmol/L 06/06/20 21:05 Random Vancomycin 9.8 ug/mL (0-40.0) 06/09/20 04:30 Urine Opiates Screen Presumptive negative 06/06/20 14:02 Urine Methadone Screen Presumptive negative 06/06/20 14:02 Ur Barbiturates Screen Presumptive negative 06/06/20 14:02 Ur Phencyclidine Scrn Presumptive negative 06/06/20 14:02 Ur Amphetamines Screen Presumptive negative 06/06/20 14:02 U Benzodiazepines Scrn Presumptive negative 06/06/20 14:02 Urine Cocaine Screen Presumptive negative 06/06/20 14:02 U Marijuana (THC) Screen Presumptive negative 06/06/20 14:02 Drugs of Abuse Note Disclamer 06/06/20 14:02 Plasma/Serum Alcohol < 0.01 % (0-0.07) 06/06/20 10:19 C. difficile Tox (PCR) Negative (Negative) 06/08/20 Unknown Coronavirus (PCR) Negative (Negative) 06/07/20 09:15 Blood Type O POSITIVE 06/06/20 14:47 Antibody Screen Negative 06/06/20 14:47 Microbiology: Microbiology 06/06/20 10:19 Peripheral/Venous Blood Culture - Final NO GROWTH AFTER 5 DAYS 06/08/20 10:11 Peripheral/Venous Blood Culture - Preliminary NO GROWTH AFTER 72 HOURS 06/08/20 10:11 Peripheral/Venous Blood Culture - Preliminary NO GROWTH AFTER 72 HOURS Hair/IV: Voiding Method Urinal Active Medications - Current Medications Current Medications: Generic Name Dose Route Start Last Admin Trade Name Freq PRN Reason Stop Dose Admin Acetaminophen 650 mg 06/06/20 15:00 06/11/20 21:52 Acetaminophen 325 Mg Tab PO 650 mg Q6H PRN Administration Pain, Mild (1-3) Albuterol 2.5 mg 06/06/20 15:00 Albuterol 2.5 Mg/3 Ml Nebu IH Q3HRT PRN Shortness Of Breath Allopurinol 100 mg 06/07/20 10:00 06/11/20 09:25 Allopurinol 100 Mg Tab PO 100 mg QDAY YELENA Administration Calcium Carbonate/Glycine 500 mg 06/07/20 10:00 06/11/20 09:24 Calcium Carbonate 500 Mg Tab Chew PO 500 mg QDAY YELENA Administration Cholecalciferol 2,000 unit 06/07/20 10:00 06/11/20 09:24 Cholecalciferol (Vit D3) 1000 Unit (25 Mcg) Tab PO 2,000 unit QDAY YELENA Administration Diclofenac Sodium 20 applic 06/07/20 10:00 06/11/20 09:25 Diclofenac Sodium 1% Topical Gel 100 Gm TP 20 applic QDAY YELENA Administration Dicyclomine HCl 10 mg 06/06/20 20:00 06/11/20 21:51 Dicyclomine 10 Mg Cap PO 10 mg TID YELENA Administration Famotidine 20 mg 06/08/20 11:00 06/11/20 09:24 Famotidine 20 Mg/2 Ml Inj IV 20 mg QDAY YELENA Administration Heparin Sodium (Porcine) 5,000 unit 06/07/20 22:00 06/11/20 21:53 Heparin 5,000 Unit/1 Ml Vial SUB-Q 5,000 unit Q12HR YELENA Administration Dextrose 1,000 mls @ 50 mls/hr 06/11/20 15:00 06/11/20 14:52 D5w IV 50 mls/hr DIRECT YELENA Administration Magnesium Citrate 300 ml 06/06/20 16:20 Magnesium Citrate 300 Ml Oral Liqd PO QDAY PRN Constipation Metoprolol Tartrate 25 mg 06/09/20 22:00 06/11/20 21:51 Metoprolol Tartrate 25 Mg Tab PO 25 mg BID YELENA Administration Pravastatin Sodium 10 mg 06/06/20 22:00 06/11/20 21:52 Pravastatin 20 Mg Tab PO 10 mg QHS YELENA Administration Sodium Chloride 10 ml 06/06/20 15:00 06/11/20 22:04 Sodium Chloride 0.9% 10 Ml Flush Syringe IV 10 ml BID YELENA Administration Sodium Chloride 10 ml 06/06/20 15:00 Sodium Chloride 0.9% 10 Ml Flush Syringe IV PRN PRN LINE FLUSH Nutrition/Malnutrition Assess - Dietary Evaluation Nutrition/Malnutrition Findings: Nutrition Notes Start: 06/08/20 11:43 Freq: Status: Active Protocol: Document 06/10/20 14:41 CW (Rec: 06/10/20 14:48 CW [id number]) Nutrition Notes Initial or Follow up Reassessment Current Diagnosis Acute Kidney Injury,Diabetes, Hypertension Other Pertinent Diagnosis AMS, Dementia, UTI, metabolic encephalopathy, ?s/p CVA? Current Diet Mechanical soft diet Labs/Tests Na 146 BUN 84 Cr 2.7 Pertinent Medications reviewed Height 5 ft 8 in Weight 76.9 kg [place] Body Weight (kg) 70.00 BMI 25.7 Weight Status Appropriate Subjective/Other Information F/U for diet advancement. Pt diet advanced to mechanical sofr diet. RN rports pt is not eating much, only a few spoon fulls of applesauce but will consume liquids. Will order ONS. Percent of energy/protein needs met: negligible Burn Absent Trauma Absent GI Symptoms Diarrhea Difficulty In Swallowing Skin Integrity/Comment Stage 1 pressure ulcer Current % PO Poor (25-49%) Minimum of two criteria No Fluid Accumulation Mild (non-severe) #2 Nutrition Diagnosis Increased nutrient needs ( specify in comment below) Comments: protein Etiology wound healing Diagnosis Progress(for reassessment Continues documentation) #1 Nutrition Diagnosis Inadequate oral intake As Evidenced by Signs and Symptoms ST approved pt for PO diet Diagnosis Progress(for reassessment Improved documentation) Is patient on ventilator? No Is Patient Ambulatory and/or Out of Bed Yes REE-([place]-St. Jeor-ambulatory/OOB) [ 1896.050 [id number]] Calculation Used for Recommendations [place] Additional Notes protein needs: 62 - 153g (0.8 - 1.2g/kgBW for ISAAC) fluid needs: 1 ml/kcal Nutrition Intervention Change Diet Order: Continue Mechanical Soft Diet, Initiate ONS Add Supplement/Snack (indicate name/kcal Nepro BID /protein ) Provides kCal: 850 Provides Protein (gm) 38 Goal #1 Meet at least 75% of kcal and proteins via PO Goal #2 wound healing Anticipated Discharge Needs: Mechanical Soft diet + ONS PRN Follow-Up By: 06/13/20 Additional Comments F/U intakes and ONS tolerance
[2020-06-12] MEDS: CHOLECALCIFEROL (VIT D3) 1000 UNIT (25 mcg) TAB PO SCH (09:53)
[2020-06-12] MEDS: CALCIUM CARBONATE 500 MG TAB CHEW PO SCH (09:54)
[2020-06-12] MEDS: allopurinoL 100 MG TAB PO SCH (09:55)
[2020-06-12] MEDS: FAMOTIDINE 20 MG/2 ML INJ IV SCH (09:55)
[2020-06-12] MEDS: METOPROLOL TARTRATE 25 MG TAB PO SCH ×2 (09:55→22:17)
[2020-06-12] MEDS: HEPARIN 5,000 UNIT/1 ML VIAL SUB-Q SCH ×2 (09:56→22:16)
[2020-06-12] MEDS: DICYCLOMINE 10 MG CAP PO SCH ×3 (09:59→22:17)
[2020-06-12] MEDS: DICLOFENAC SODIUM 1% TOPICAL GEL 100 GM TP SCH (10:18)
--- NOTE | 2020-06-12 10:58 | Progress Note ---
Assessment and Plan 80 Male NSTEMI type II Sepsis/UTI ISAAC on CKD Anemia Leukocytosis Acute encephalopathy/Dementia Atrial FIB (transient) DCM EF 15-20% LBBB Diabetes ECHO 06/06/20: EF 15-20%, mild LVH, trace MR/TR Tele reviewed: Sinus rhythm Appears compensated from HF standpoint Conservative cardiac management given pt's advanced age, dementia and multiple co-morbidities. Consider stress testing for further evaluation of newly diagnosed CMP and LBBB once medically stabilized (can be done as OP) Continue Metoprolol 25mg PO BID as tolerated Subjective Date of service: 06/12/20 Principal diagnosis: shock Interval history: Patient sitting up in bed without complaints. He states that he is a little sleepy this morning. Objective Vital Signs Temp Pulse Resp BP BP Pulse Ox 06/12/20 09:55 91 H 141/115 06/12/20 08:41 91 H 141/115 98 06/12/20 08:12 98.8 F 06/12/20 04:48 98.0 F 84 18 166/77 98 06/11/20 23:27 98.0 F 75 18 153/65 97 06/11/20 19:29 98.0 F 89 18 97 06/11/20 19:28 98.6 F 86 18 168/64 96 - Physical Examination General: No Apparent Distress HEENT: Positive: PERRL, Normocephaly, Mucus Membranes Moist Neck: Positive: neck supple, trachea midline Cardiac: Positive: Reg Rate and Rhythm Lungs: Positive: Decreased Breath Sounds Neuro: Positive: Other (confused) Abdomen: Positive: Active Bowel Sounds. Negative: Tender Skin: Negative: Rash Musculoskeletal: No Pain Extremities: Absent: edema - Labs and Meds CBC 06/12/20 Range/Units 05:24 WBC 13.7 H (4.5-11.0) K/mm3 RBC 2.68 L (3.65-5.03) M/mm3 Hgb 8.6 L (11.8-15.2) gm/dl Hct 26.5 L (35.5-45.6) % Plt Count 105 L (140-440) K/mm3 Comprehensive Metabolic Panel 06/12/20 Range/Units 05:24 Sodium 147 H (137-145) mmol/L Potassium 3.1 L (3.6-5.0) mmol/L Chloride 112.4 H (98-107) mmol/L Carbon Dioxide 24 (22-30) mmol/L BUN 49 H (9-20) mg/dL Creatinine 1.7 H (0.8-1.3) mg/dL Glucose 121 H (75-100) mg/dL Calcium 8.1 L (8.4-10.2) mg/dL - Imaging and Cardiology EKG: report reviewed, image reviewed Echo: report reviewed (06/06/2020 showed EF 15-20%, LV borderline dilated, no significant valvular abnormalities. ) Cardiac cath: report reviewed (1998 - no significant findings) - EKG Sinus rhythms and dysrhythmias: sinus rhythm AV and intraventricular conduction: left bundle branch block
--- NOTE | 2020-06-12 11:45 | Progress Note ---
Assessment and Plan 1. Acute kidney injury: Vasomotor ISAAC in the setting of shock. Renal US ordered negative for hydro. Baseline renal function is unknown. Monitor renal function. Creatinine level is improving. Avoid nephrotoxic agents. Meds dosage based on GFR. 2. FEN: Hyeprnatremia, on IV D5W. Hypokalemia, replete K, monitor. Anion-gap metabolic acidosis, improved, monitor. Replete Mg and Phos. Monitor lytes and volume status. 3. Sepsis with shock: Currently off pressors. Monitor BP. 4. UTI: Abx per ID. 5. Acute hypoxemic respiratory failure: CXR clear. COVID test negative. NC O2 as needed. 6. Diarrhea: ?Colitis. C.diff negative. 7. R kidney mass: Further testing depends on clinical course. 8. Metabolic encephalopathy: Monitor. 9. H/o Dementia: Supportive care. 10. H/o HTN: Monitor BP. 11. Anemia, POA: Monitor. Subjective: Patient was seen and examined at the bedside. No new complaint. Objective: General appearance: well-developed, appears stated age, not in distress HEENT: ATNC Neck: trachea midline Respiratory: ctab Heart: regular, S1S2, no murmur Gastrointestinal: soft, normoactive bowel sounds, not tender Integumentary: no rash, warm and dry Ext: no edema Neurologic: alert, able to tell his name, able to move extremities Ext: trace edema Subjective Date of service: 06/12/20 Principal diagnosis: shock Objective - Vital Signs Vital signs: Vital Signs - 12hr 06/12/20 06/12/20 06/12/20 04:48 08:12 08:41 Temperature 98.0 F 98.8 F Pulse Rate 84 91 H Respiratory 18 Rate Blood Pressure 166/77 Blood Pressure 141/115 [Left] O2 Sat by Pulse 98 98 Oximetry 06/12/20 09:55 Temperature Pulse Rate 91 H Respiratory Rate Blood Pressure 141/115 Blood Pressure [Left] O2 Sat by Pulse Oximetry - Lab 06/12/20 05:24 06/12/20 05:24 Most recent lab results ABG pH 7.329 pH Units (7.350-7.450) L 06/06/20 11:18 ABG pCO2 27.8 mm Hg 06/06/20 11:18 ABG pO2 258.1 mm Hg (80.0-90.0) H 06/06/20 11:18 ABG HCO3 14.3 mmol/L (20.0-26.0) L 06/06/20 11:18 ABG O2 Saturation 99.4 % (95.0-99.0) H 06/06/20 11:18 Calcium 8.1 mg/dL (8.4-10.2) L 06/12/20 05:24 Phosphorus 2.10 mg/dL (2.5-4.5) L 06/12/20 05:24 Magnesium 1.30 mg/dL (1.7-2.3) L 06/12/20 05:24 Urine Creatinine 57.0 mg/dL (0.1-20.0) H 06/06/20 21:05 Urine Sodium 85 mmol/L 06/06/20 21:05 Medications & Allergies - Medications Allergies/Adverse Reactions: Allergies No Known Allergies Allergy (Verified 06/06/20 15:21) Home Medications: Home Medications Medication Instructions Recorded Confirmed Last Taken Type Amlodipine Besylate [Norvasc] 5 mg PO QDAY 06/06/20 06/06/20 Unknown History Bisacodyl [Women's Gentle Laxative] 5 mg PO BID 06/06/20 06/06/20 Unknown History Calcium Carb/Magnesium Hydrox 500 mg PO QDAY 06/06/20 06/06/20 Unknown History [Antacid 1000-200 mg Tab Chew] Cholecalciferol (Vitamin D3) 2,000 unit PO QDAY 06/06/20 06/06/20 Unknown History [Vitamin D3 2,000 UNIT CAP] Dextrose/Dextrin/Maltose 24 gm PO ONCE 06/06/20 06/06/20 Unknown History [Insta-Glucose Gel] Diclofenac 1% [Diclofenac 1% 100 gm TP QDAY 06/06/20 06/06/20 Unknown History topical gel] Dicyclomine [Bentyl] 10 mg PO TID 06/06/20 06/06/20 Unknown History Docusate Sodium [Colace] 100 mg PO BID PRN 06/06/20 06/06/20 Unknown History Furosemide [Lasix] 40 mg PO QDAY 06/06/20 06/06/20 Unknown History Insulin Lispro [Insulin Lispro 10 unit SQ TID 06/06/20 06/06/20 Unknown History Kwikpen U-100] Magnesium Citrate [Citroma] 296 ml PO QDAY 06/06/20 06/06/20 Unknown History Melatonin [Melatonin 3MG TAB] 6 mg PO QHS 06/06/20 06/06/20 Unknown History Oxycodone HCl/Acetaminophen 1 each PO QDAY 06/06/20 06/06/20 Unknown History [Oxycodone-Acetaminophen 10-325] Pantoprazole [Protonix] 40 mg PO QDAY 06/06/20 06/06/20 Unknown History Pioglitazone HCl [Actos] 30 mg PO QDAY 06/06/20 06/06/20 Unknown History Polyethylene Glycol 3350 [Gavilax] 10 gm PO QDAY 06/06/20 06/06/20 Unknown History Pravastatin Sodium [Pravastatin] 10 mg PO QHS 06/06/20 06/06/20 Unknown History Tamsulosin [Flomax] 0.4 mg PO QDAY 06/06/20 06/06/20 Unknown History allopurinoL [Zyloprim] 100 mg PO QDAY 06/06/20 06/06/20 Unknown History lisinopriL [Lisinopril] 20 mg PO QDAY 06/06/20 06/06/20 Unknown History Active Medications: Generic Name Dose Route Start Last Admin Trade Name Freq PRN Reason Stop Dose Admin Acetaminophen 650 mg 06/06/20 15:00 06/11/20 21:52 Acetaminophen 325 Mg Tab PO 650 mg Q6H PRN Administration Pain, Mild (1-3) Albuterol 2.5 mg 06/06/20 15:00 Albuterol 2.5 Mg/3 Ml Nebu IH Q3HRT PRN Shortness Of Breath Allopurinol 100 mg 06/07/20 10:00 06/12/20 09:55 Allopurinol 100 Mg Tab PO 100 mg QDAY YELENA Administration Calcium Carbonate/Glycine 500 mg 06/07/20 10:00 06/12/20 09:54 Calcium Carbonate 500 Mg Tab Chew PO 500 mg QDAY YELENA Administration Cholecalciferol 2,000 unit 06/07/20 10:00 06/12/20 09:53 Cholecalciferol (Vit D3) 1000 Unit (25 Mcg) Tab PO 2,000 unit QDAY YELENA Administration Diclofenac Sodium 20 applic 06/07/20 10:00 06/12/20 10:18 Diclofenac Sodium 1% Topical Gel 100 Gm TP 20 applic QDAY YELENA Administration Dicyclomine HCl 10 mg 06/06/20 20:00 06/12/20 09:59 Dicyclomine 10 Mg Cap PO 10 mg TID YELENA Administration Famotidine 20 mg 06/13/20 10:00 Famotidine 20 Mg Tab PO QDAY YELENA Heparin Sodium (Porcine) 5,000 unit 06/07/20 22:00 06/12/20 09:56 Heparin 5,000 Unit/1 Ml Vial SUB-Q 5,000 unit Q12HR YELENA Administration Dextrose 1,000 mls @ 50 mls/hr 06/11/20 15:00 06/11/20 14:52 D5w IV 50 mls/hr DIRECT YELENA Administration Magnesium Citrate 300 ml 06/06/20 16:20 Magnesium Citrate 300 Ml Oral Liqd PO QDAY PRN Constipation Metoprolol Tartrate 25 mg 06/09/20 22:00 06/12/20 09:55 Metoprolol Tartrate 25 Mg Tab PO 25 mg BID YELENA Administration Pravastatin Sodium 10 mg 06/06/20 22:00 06/11/20 21:52 Pravastatin 20 Mg Tab PO 10 mg QHS YELENA Administration Sodium Chloride 10 ml 06/06/20 15:00 06/12/20 09:56 Sodium Chloride 0.9% 10 Ml Flush Syringe IV 10 ml BID YELENA Administration Sodium Chloride 10 ml 06/06/20 15:00 Sodium Chloride 0.9% 10 Ml Flush Syringe IV PRN PRN LINE FLUSH
[2020-06-12] MEDS ORDERED: MAGNESIUM SULFATE 2 GM/50 ML BAG IV ONE (12:00)
--- NOTE | 2020-06-12 13:21 | Progress Note ---
Assessment and Plan Cultures: Blood culture 06/06/2020 coagulase-negative staph 1 out of 4 Blood culture 06/08/2020 no growth today C. difficile PCR negative SARS-CoV-2 PCR negative Urine culture 06/07/2020 no growth Assessment: 80 years old male with history of dementia, CVA, debility, diabetes mellitus, secondary to few hours of unresponsiveness at breakfast at his assisted living facility: #Sepsis with septic shock: Resolved, remarkable improvement, off pressors; source UTI +/- colitis. #Extensive colitis: remains with large foul smelling diarrhea. seen on CT ? ischemia. C diff neg #Coagulase-negative staph bacteremia: 1 out of 4 likely contaminant. #Acute hypoxemic respiratory failure: now on NC O2. CXR clear. SARS-CoV-2 PCR negative. #UTI: with hematuria, urine culture no growth #Acute encephalopathy: due to sepsis> CT no acute changes. Resolved. #ISAAC: ? from sepsis, better #RVR A. fib: On amiodarone, cardiology on board #Thrombocytopenia: Monitor platelets, likely due to sepsis, resolved. Recommendations: -GI med eval - colitis on CT ischemic? with persistent foul smelling diarrhea, C diff neg -Avoid laxative -Completed cefepime 5 days -remove torres is feasible -monitor leukocytosis Will follow. Nona Childs MD Infectious Diseases [facility] ([facility]) M [phone] O [phone] Subjective Date of service: 06/12/20 Principal diagnosis: shock Interval history: Patient feeling better, no complaints Objective - Exam Narrative Exam: General appearance: Alert in NAD on NC O2 Eyes: anicteric sclerae, moist conjunctivae; no lid-lag; PERRLA HENT: Normocephalic, Atraumatic; normal external ears, nares open, oropharynx limited edentulous Neck: supple, tracheal midline, no JVD Lungs: Clear to auscultation bilaterally CV: RRR no murmur Abdomen: Soft, nontender, ventral hernia Extremities: no edema, no cyanosis Skin: No rash. Psych: no agitated Neuro: Alert, follows simple commands Large foul smelling liquid stool Torres catheter in place - Constitutional Vitals: Vital Signs Temp Pulse Resp BP Pulse Ox 98.8 F 91 H 18 141/115 98 06/12/20 08:12 06/12/20 09:55 06/12/20 04:48 06/12/20 09:55 06/12/20 08:41 Temperature -Last 24 Hours Temperature 98.8 F Temperature 98.0 F Temperature 98.0 F Temperature 98.0 F Temperature 98.6 F - Labs CBC & Chem 7: 06/12/20 05:24 06/12/20 05:24 Labs: Abnormal lab results 06/11/20 06/12/20 06/12/20 Range/Units 21:00 05:24 05:24 WBC 13.7 H (4.5-11.0) K/mm3 RBC 2.68 L (3.65-5.03) M/mm3 Hgb 8.6 L (11.8-15.2) gm/dl Hct 26.5 L (35.5-45.6) % MCV 99 H (84-94) fl Plt Count 105 L (140-440) K/mm3 Seg Neuts % (Manual) 82.0 H (40.0-70.0) % Lymphocytes % (Manual) 10.0 L (13.4-35.0) % Seg Neutrophils # Man 11.2 H (1.8-7.7) K/mm3 Sodium 147 H (137-145) mmol/L Potassium 3.1 L (3.6-5.0) mmol/L Chloride 112.4 H (98-107) mmol/L BUN 49 H (9-20) mg/dL Creatinine 1.7 H (0.8-1.3) mg/dL Glucose 121 H (75-100) mg/dL POC Glucose 128 H (70-105) mg/dL Calcium 8.1 L (8.4-10.2) mg/dL Phosphorus 2.10 L (2.5-4.5) mg/dL Magnesium 1.30 L (1.7-2.3) mg/dL 06/12/20 06/12/20 Range/Units 07:49 11:40 WBC (4.5-11.0) K/mm3 RBC (3.65-5.03) M/mm3 Hgb (11.8-15.2) gm/dl Hct (35.5-45.6) % MCV (84-94) fl Plt Count (140-440) K/mm3 Seg Neuts % (Manual) (40.0-70.0) % Lymphocytes % (Manual) (13.4-35.0) % Seg Neutrophils # Man (1.8-7.7) K/mm3 Sodium (137-145) mmol/L Potassium (3.6-5.0) mmol/L Chloride (98-107) mmol/L BUN (9-20) mg/dL Creatinine (0.8-1.3) mg/dL Glucose (75-100) mg/dL POC Glucose 118 H 133 H (70-105) mg/dL Calcium (8.4-10.2) mg/dL Phosphorus (2.5-4.5) mg/dL Magnesium (1.7-2.3) mg/dL
[2020-06-12] MEDS ORDERED: POTASSIUM PHOSPHATE 30 MMOL in SODIUM CHLORIDE 0.9% 500 ML 500 ML IV ONE (14:00)
--- NOTE | 2020-06-12 16:58 | Gastroenterology Progress Note ---
Assessment and Plan 1. GI: pt presented w/ shock now with colitis and loose stool - C. diff negative - antibiotics per ID - will start Questran bid - continue po, advance as tolerated - no plans to scope at this time - willfollow Subjective Date of service: 06/12/20 Principal diagnosis: shock Interval history: - reported continued loose stools overnight. No complaints of significant abdominal pain Objective - Constitutional Vitals: Temp Pulse Resp BP Pulse Ox 99.7 F H 103 H 18 154/98 98 06/12/20 14:05 06/12/20 14:05 06/12/20 04:48 06/12/20 14:05 06/12/20 08:41 General appearance: no acute distress - EENT Eyes: PERRL - Respiratory Respiratory: bilateral: CTA - Cardiovascular Rhythm: regular Heart Sounds: Present: S1 & S2 - Gastrointestinal General gastrointestinal: Present: soft, non-tender, non-distended - Labs CBC & Chem 7: 06/12/20 05:24 06/12/20 05:24 Labs: Laboratory Results - last 24 hr 06/11/20 06/12/20 06/12/20 21:00 05:24 05:24 WBC 13.7 H RBC 2.68 L Hgb 8.6 L Hct 26.5 L MCV 99 H MCH 32 MCHC 32 RDW 14.3 Plt Count 105 L Add Manual Diff Complete Total Counted 100 Seg Neuts % (Manual) 82.0 H Band Neutrophils % 3.0 Lymphocytes % (Manual) 10.0 L Reactive Lymphs % (Man) 1.0 Monocytes % (Manual) 2.0 Eosinophils % (Manual) 2.0 Nucleated RBC % Not Reportable Seg Neutrophils # Man 11.2 H Band Neutrophils # 0.4 Lymphocytes # (Manual) 1.4 Abs React Lymphs (Man) 0.1 Monocytes # (Manual) 0.3 Eosinophils # (Manual) 0.3 Basophils # (Manual) 0.0 Metamyelocytes # 0.0 Myelocytes # 0.0 Promyelocytes # 0.0 Blast Cells # 0.0 WBC Morphology Not Reportable Hypersegmented Neuts Not Reportable Hyposegmented Neuts Not Reportable Hypogranular Neuts Not Reportable Smudge Cells Not Reportable Toxic Granulation Not Reportable Toxic Vacuolation Not Reportable Dohle Bodies Not Reportable Pelger-Huet Anomaly Not Reportable Denys Rods Not Reportable Platelet Estimate Consistent w auto Clumped Platelets Not Reportable Plt Clumps, EDTA Not Reportable Large Platelets Not Reportable Giant Platelets Not Reportable Platelet Satelliting Not Reportable Plt Morphology Comment Not Reportable RBC Morphology Not Reportable Dimorphic RBCs Not Reportable Polychromasia Not Reportable Hypochromasia Not Reportable Poikilocytosis Not Reportable Anisocytosis 1+ Microcytosis Not Reportable Macrocytosis 1+ Spherocytes Not Reportable Pappenheimer Bodies Not Reportable Sickle Cells Not Reportable Target Cells Not Reportable Tear Drop Cells Not Reportable Ovalocytes Not Reportable Helmet Cells Not Reportable [place] Bodies Not Reportable [place] Rings Not Reportable Dom Cells Not Reportable Bite Cells Not Reportable Crenated Cell Not Reportable Elliptocytes Not Reportable Acanthocytes (Spur) Not Reportable Rouleaux Not Reportable Hemoglobin C Crystals Not Reportable Schistocytes Not Reportable Malaria parasites Not Reportable Chance Bodies Not Reportable Hem Pathologist Commnt No Sodium 147 H Potassium 3.1 L Chloride 112.4 H Carbon Dioxide 24 Anion Gap 14 BUN 49 H Creatinine 1.7 H Estimated GFR 47 BUN/Creatinine Ratio 29 Glucose 121 H POC Glucose 128 H Calcium 8.1 L Phosphorus 2.10 L Magnesium 1.30 L 06/12/20 06/12/20 06/12/20 07:49 11:40 15:53 WBC RBC Hgb Hct MCV MCH MCHC RDW Plt Count Add Manual Diff Total Counted Seg Neuts % (Manual) Band Neutrophils % Lymphocytes % (Manual) Reactive Lymphs % (Man) Monocytes % (Manual) Eosinophils % (Manual) Nucleated RBC % Seg Neutrophils # Man Band Neutrophils # Lymphocytes # (Manual) Abs React Lymphs (Man) Monocytes # (Manual) Eosinophils # (Manual) Basophils # (Manual) Metamyelocytes # Myelocytes # Promyelocytes # Blast Cells # WBC Morphology Hypersegmented Neuts Hyposegmented Neuts Hypogranular Neuts Smudge Cells Toxic Granulation Toxic Vacuolation Dohle Bodies Pelger-Huet Anomaly Denys Rods Platelet Estimate Clumped Platelets Plt Clumps, EDTA Large Platelets Giant Platelets Platelet Satelliting Plt Morphology Comment RBC Morphology Dimorphic RBCs Polychromasia Hypochromasia Poikilocytosis Anisocytosis Microcytosis Macrocytosis Spherocytes Pappenheimer Bodies Sickle Cells Target Cells Tear Drop Cells Ovalocytes Helmet Cells [place] Bodies [place] Cells Bite Cells Crenated Cell Elliptocytes Acanthocytes (Spur) Rouleaux Hemoglobin C Crystals Schistocytes Malaria parasites Chance Bodies Hem Pathologist Commnt Sodium Potassium Chloride Carbon Dioxide Anion Gap BUN Creatinine Estimated GFR BUN/Creatinine Ratio Glucose POC Glucose 118 H 133 H 138 H Calcium Phosphorus Magnesium
[2020-06-12] MEDS: PRAVASTATIN 20 MG TAB PO SCH (22:16)
[2020-06-12] MEDS: CHOLESTYRAMINE (WITH SUGAR) 4 GM PACKET PO SCH (22:16)
[2020-06-13 06:45] LABS: Calcium 7.3 mg/dL (8.4-10.2)
[2020-06-13 06:48] LABS: Basophils % (Auto) 0.2 % (0.0-1.8); Eosinophils # (Auto) 0.2 K/mm3 (0.0-0.4); Eosinophils % (Auto) 1.7 % (0.0-4.3); Hematocrit 22.4 % (35.5-45.6); Hemoglobin 7.2 gm/dl (11.8-15.2); Lymphocytes # (Auto) 0.9 K/mm3 (1.2-5.4); Lymphocytes % (Auto) 6.8 % (13.4-35.0); Mean Corpuscular HGB Conc 32 % (32-34); Mean Corpuscular Volume 97 fl (84-94); Monocytes # (Auto) 0.7 K/mm3 (0.0-0.8); Platelet Count 175 K/mm3 (140-440); Red Blood Count 2.32 M/mm3 (3.65-5.03); Red Cell Distribution Width 14.3 % (13.2-15.2)
[2020-06-13] MEDS: DEXTROSE 5% IN WATER 1,000 ML IV SCH (08:17)
[2020-06-13] MEDS: DICYCLOMINE 10 MG CAP PO SCH ×3 (08:19→21:50)
[2020-06-13] MEDS ORDERED: MAGNESIUM SULFATE 3 GM in SODIUM CHLORIDE 0.9% 100 ML IV ONE (09:27)
--- NOTE | 2020-06-13 09:27 | Progress Note ---
Assessment and Plan Assessment and plan: This is a 80-year-old male who is a resident of assisted living facility with vascular dementia, cerebral sclerosis, debility, diabetes mellitus who presents to the emergency department on 06/06 with complaints of lethargy and diminished cognition as per daughter he developed an episode of unresponsiveness while at breakfast at at his assisted living facility. Patient was found to have a urinary tract infection complicated by sepsis and septic shock, acute kidney injury, toxic metabolic encephalopathy as well as metabolic acidosis. Patient was hypotensive with systolic blood pressures in the 50s and was initiated on vasopressor support in the emergency department. Patient was admitted to the hospital service with consults to nephrology and [facility]. Septic Shock Metabolic encephalopathy Coag negative Staphylococcus 03/07 bottles Urinary tract infection Possible ISCHEMIC COLITIS Acute hypoxic respiratory failure Acute kidney injury Metabolic acidosis Diarrhea Dementia Hypertension Anemia 06/07: Patient remains on dopamine, vasopressin and Levophed. Nephrology has started the patient on sodium bicarbonate drip for metabolic acidosis. Infectious disease initiated vancomycin in addition to the cefepime and ordered a C. difficile. 06/08: Patient has gram-positive cocci bacteremia in 03/07 bottles which grew to be coag negative staph coccus and he has repeat blood cultures in progress. Urine culture has no growth to date and he is on IV vancomycin and cefepime. Yesterday we ordered a C. difficile PCR which is pending. Patient had a moment of tachycardia into the 130s and a stat EKG was obtained. Patient was given amiodarone bolus by [facility] and cardiology was consulted. Patient is hyperchloremic today however his metabolic acidosis and BUN/creatinine is slightly improved to 93/3.2 from 100/3.6 and his repeat lactic acid is 1.5. At the time my examination patient was on Levophed at 6, vasopressin 0.03 and dopamine at 6. This morning patient failed his swallow eval and ST evaluation was ordered. Of note patient's echocardiogram shows reduced 15 to 20% with borderline left ventricular hypertrophy. 06/09: This morning his speech evaluation was completed and he has been cleared for mechanical soft diet with thin liquids. Patient complained of right-sided chest pain with radiation to shoulders and a stat EKG cardiac enzymes were ordered. Patient was recultured yesterday and those have no growth to date and his vancomycin was stopped. Infectious disease team recommends removal of Torres catheter when feasible and a CT abdomen/pelvis when stable. Patient has been cleared to transfer to the floor by cardiology and [facility]. 06/10/2020; patient is on IV cefepime for sepsis due to UTI day 3 out of 5. Vancomycin discontinued. Patient is complaining pleuritic chest pain. Patient was evaluated by cardiology for elevated troponin and episode of A. fib on admission. Cardiology discontinued amiodarone and put her on Lopressor. Cardiology recommend against anticoagulation because of patient's anemia. Hemoglobin this morning was 7.4 and anemia work-up is in progress. I did o rdered CT abdomen and pelvis. PT OT evaluation. Patient has ISAAC and nephrology is following. Patient has rectal tube and liquid stool in the bag. I ordered stool for C. difficile. We will continue to monitor. 06/11/2020; patient is on cefepime day 06/06. CT abdomen and pelvis was done and significant for colitis, ischemic colitis is possibility given hypotension and elevated lactic acid level. I will consult GI. Patient has episode of A. fib for less than 24 hours, cardiology was consulted and recommend to be on Lopressor. No need for coagulation because of his anemia. Hemoglobin this morning is improved to 8. Anemia work-up was done, no iron deficiency anemia identified. ISAAC is improving. C. difficile was negative. 06/12/2020; continue cefepime per ID recommendation. CT abdomen and pelvis is significant for ischemic colitis likely due to septic shock, hypotension. Patient was seen by GI and recommend no further intervention at this time. Patient had episode of A. fib on admission for less than 24 hours and cardiology recommend to continue on Lopressor, no anticoagulation needed. Hemoglobin is improving. Patient came from assisted living facility. Patient need Covid test before discharge. ISAAC is improving. Creatinine this morning was 1.7. Nephrology is following. OT evaluated and recommend subacute rehab, PT evaluation is pending. 06/13: Replace K and Mag, continue to monitor renal fuction, Continue abx per ID, c.diff negative. patient still with Rectal tube and Torres but will re- evaluate for possible discontinuation. Questran started by GI. Will continue to monitor and replace electrolytes Discussed with nursing staff to change torres to condom catheter CM to try and ascertain patients functional status prior to hospitalization History Interval history: Patient seen and examined, remains lethargic, still with diarrhea, otherwise no new complaints reported to me Hospitalist Physical - Physical exam Narrative exam: Not in cardiopulmonary distress. The patient appeared well nourished and normally developed. Vital signs as documented. Head exam is unremarkable. No scleral icterus . Neck is without jugular venous distension, thyromegaly, or carotid bruits. Lungs are clear to auscultation. Cardiac exam reveals regular rate and Rhythm. Abdominal exam reveals normal bowel sounds, nontender, no organomegaly. Rectal tube in place. Extremities are with plus 1 pitting edeam in upper and lower ext and both femoral and pedal pulses are normal. [employer]: Alert, cooperative, severely demented - Constitutional Vitals: Temp Pulse Resp BP Pulse Ox 98.8 F 76 18 126/46 98 06/13/20 07:20 06/13/20 07:20 06/13/20 07:20 06/13/20 07:20 06/13/20 07:20 General appearance: Present: no acute distress, well-nourished HEART Score - HEART Score Troponin: Troponin T 0.170 ng/mL (0.00-0.029) H* D 06/11/20 05:30 Results - Labs CBC & Chem 7: 06/13/20 06:13 06/13/20 06:13 Labs: Laboratory Last Values WBC 13.8 K/mm3 (4.5-11.0) H 06/13/20 06:13 RBC 2.32 M/mm3 (3.65-5.03) L 06/13/20 06:13 Hgb 7.2 gm/dl (11.8-15.2) L 06/13/20 06:13 Hct 22.4 % (35.5-45.6) L 06/13/20 06:13 MCV 97 fl (84-94) H 06/13/20 06:13 MCH 31 pg (28-32) 06/13/20 06:13 MCHC 32 % (32-34) 06/13/20 06:13 RDW 14.3 % (13.2-15.2) 06/13/20 06:13 Plt Count 175 K/mm3 (140-440) 06/13/20 06:13 Lymph % (Auto) 6.8 % (13.4-35.0) L 06/13/20 06:13 Jenkins % (Auto) 5.0 % (0.0-7.3) 06/13/20 06:13 Eos % (Auto) 1.7 % (0.0-4.3) 06/13/20 06:13 Baso % (Auto) 0.2 % (0.0-1.8) 06/13/20 06:13 Lymph # (Auto) 0.9 K/mm3 (1.2-5.4) L 06/13/20 06:13 Jenkins # (Auto) 0.7 K/mm3 (0.0-0.8) 06/13/20 06:13 Eos # (Auto) 0.2 K/mm3 (0.0-0.4) 06/13/20 06:13 Baso # (Auto) 0.0 K/mm3 (0.0-0.1) 06/13/20 06:13 Add Manual Diff Complete 06/12/20 05:24 Total Counted 100 06/12/20 05:24 Seg Neutrophils % 86.3 % (40.0-70.0) H 06/13/20 06:13 Seg Neuts % (Manual) 82.0 % (40.0-70.0) H 06/12/20 05:24 Band Neutrophils % 3.0 % 06/12/20 05:24 Lymphocytes % (Manual) 10.0 % (13.4-35.0) L 06/12/20 05:24 Reactive Lymphs % (Man) 1.0 % 06/12/20 05:24 Monocytes % (Manual) 2.0 % (0.0-7.3) 06/12/20 05:24 Eosinophils % (Manual) 2.0 % (0.0-4.3) 06/12/20 05:24 Nucleated RBC % Not Reportable 06/12/20 05:24 Seg Neutrophils # 11.9 K/mm3 (1.8-7.7) H 06/13/20 06:13 Seg Neutrophils # Man 11.2 K/mm3 (1.8-7.7) H 06/12/20 05:24 Band Neutrophils # 0.4 K/mm3 06/12/20 05:24 Lymphocytes # (Manual) 1.4 K/mm3 (1.2-5.4) 06/12/20 05:24 Abs React Lymphs (Man) 0.1 K/mm3 06/12/20 05:24 Monocytes # (Manual) 0.3 K/mm3 (0.0-0.8) 06/12/20 05:24 Eosinophils # (Manual) 0.3 K/mm3 (0.0-0.4) 06/12/20 05:24 Basophils # (Manual) 0.0 K/mm3 (0.0-0.1) 06/12/20 05:24 Metamyelocytes # 0.0 K/mm3 06/12/20 05:24 Myelocytes # 0.0 K/mm3 06/12/20 05:24 Promyelocytes # 0.0 K/mm3 06/12/20 05:24 Blast Cells # 0.0 K/mm3 06/12/20 05:24 WBC Morphology Not Reportable 06/12/20 05:24 Hypersegmented Neuts Not Reportable 06/12/20 05:24 Hyposegmented Neuts Not Reportable 06/12/20 05:24 Hypogranular Neuts Not Reportable 06/12/20 05:24 Smudge Cells Not Reportable 06/12/20 05:24 Toxic Granulation Not Reportable 06/12/20 05:24 Toxic Vacuolation Not Reportable 06/12/20 05:24 Dohle Bodies Not Reportable 06/12/20 05:24 Pelger-Huet Anomaly Not Reportable 06/12/20 05:24 Denys Rods Not Reportable 06/12/20 05:24 Platelet Estimate Consistent w auto 06/12/20 05:24 Clumped Platelets Not Reportable 06/12/20 05:24 Plt Clumps, EDTA Not Reportable 06/12/20 05:24 Large Platelets Not Reportable 06/12/20 05:24 Giant Platelets Not Reportable 06/12/20 05:24 Platelet Satelliting Not Reportable 06/12/20 05:24 Plt Morphology Comment Not Reportable 06/12/20 05:24 RBC Morphology Not Reportable 06/12/20 05:24 Dimorphic RBCs Not Reportable 06/12/20 05:24 Polychromasia Not Reportable 06/12/20 05:24 Hypochromasia Not Reportable 06/12/20 05:24 Poikilocytosis Not Reportable 06/12/20 05:24 Anisocytosis 1+ 06/12/20 05:24 Microcytosis Not Reportable 06/12/20 05:24 Macrocytosis 1+ 06/12/20 05:24 Spherocytes Not Reportable 06/12/20 05:24 Pappenheimer Bodies Not Reportable 06/12/20 05:24 Sickle Cells Not Reportable 06/12/20 05:24 Target Cells Not Reportable 06/12/20 05:24 Tear Drop Cells Not Reportable 06/12/20 05:24 Ovalocytes Not Reportable 06/12/20 05:24 Helmet Cells Not Reportable 06/12/20 05:24 Brenner-[place] Bodies Not Reportable 06/12/20 05:24 [place] Rings Not Reportable 06/12/20 05:24 Dom Cells Not Reportable 06/12/20 05:24 Bite Cells Not Reportable 06/12/20 05:24 Crenated Cell Not Reportable 06/12/20 05:24 Elliptocytes Not Reportable 06/12/20 05:24 Acanthocytes (Spur) Not Reportable 06/12/20 05:24 Rouleaux Not Reportable 06/12/20 05:24 Hemoglobin C Crystals Not Reportable 06/12/20 05:24 Schistocytes Not Reportable 06/12/20 05:24 Malaria parasites Not Reportable 06/12/20 05:24 Chance Bodies Not Reportable 06/12/20 05:24 Hem Pathologist Commnt No 06/12/20 05:24 PT 16.3 Sec. (12.2-14.9) H 06/06/20 10:19 INR 1.33 (0.87-1.13) H 06/06/20 10:19 APTT 31.6 Sec. (24.2-36.6) 06/06/20 10:19 ABG pH 7.329 pH Units (7.350-7.450) L 06/06/20 11:18 ABG pCO2 27.8 mm Hg 06/06/20 11:18 ABG pO2 258.1 mm Hg (80.0-90.0) H 06/06/20 11:18 ABG HCO3 14.3 mmol/L (20.0-26.0) L 06/06/20 11:18 ABG O2 Saturation 99.4 % (95.0-99.0) H 06/06/20 11:18 ABG O2 Content 13.2 (0.0-44) 06/06/20 11:18 ABG Base Excess -10.5 mmol/L (-2.0-3.0) L 06/06/20 11:18 ABG Hemoglobin 9.1 gm/dl (14.0-18.0) L 06/06/20 11:18 ABG Carboxyhemoglobin 1.3 % (0.0-5.0) 06/06/20 11:18 ABG Methemoglobin Not Reportable 06/06/20 11:18 VBG pH 7.438 (7.320-7.420) H 06/06/20 10:19 Oxyhemoglobin 98.2 % (95.0-99.0) 06/06/20 11:18 FiO2 21 % 06/06/20 11:18 Sodium 146 mmol/L (137-145) H 06/13/20 06:13 Potassium 3.0 mmol/L (3.6-5.0) L 06/13/20 06:13 Chloride 114.6 mmol/L (98-107) H 06/13/20 06:13 Carbon Dioxide 24 mmol/L (22-30) 06/13/20 06:13 Anion Gap 10 mmol/L 06/13/20 06:13 BUN 38 mg/dL (9-20) H 06/13/20 06:13 Creatinine 1.4 mg/dL (0.8-1.3) H 06/13/20 06:13 Estimated GFR 59 ml/min 06/13/20 06:13 BUN/Creatinine Ratio 27 % 06/13/20 06:13 Glucose 131 mg/dL (75-100) H 06/13/20 06:13 POC Glucose 113 mg/dL (70-105) H 06/13/20 07:18 Lactic Acid 1.50 mmol/L (0.7-2.0) 06/08/20 05:15 Calcium 7.3 mg/dL (8.4-10.2) L 06/13/20 06:13 Phosphorus 2.60 mg/dL (2.5-4.5) D 06/13/20 06:13 Magnesium 1.50 mg/dL (1.7-2.3) L 06/13/20 06:13 Iron 54 ug/dL (49-181) 06/10/20 10:44 TIBC 157 mcg/dL (250-450) L 06/10/20 10:44 Ferritin 569.5 ng/mL (30.0-300.0) H 06/10/20 10:44 Total Bilirubin 0.40 mg/dL (0.1-1.2) 06/07/20 02:51 AST 135 units/L (5-40) H 06/07/20 02:51 ALT 70 units/L (7-56) H 06/07/20 02:51 Alkaline Phosphatase 82 units/L (35-129) 06/07/20 02:51 Ammonia 64.0 umol/L (25-60) H 06/06/20 10:19 Total Creatine Kinase 1212 units/L (55-170) H 06/09/20 12:57 CK-MB (CK-2) 12.1 ng/mL (0.0-4.0) H 06/09/20 12:57 CK-MB (CK-2) Rel Index 0.9 (0-4) 06/09/20 12:57 Troponin T 0.170 ng/mL (0.00-0.029) H* D 06/11/20 05:30 Total Protein 6.2 g/dL (6.3-8.2) L 06/07/20 02:51 Albumin 3.2 g/dL (3.9-5) L 06/07/20 02:51 Albumin/Globulin Ratio 1.1 % 06/07/20 02:51 Triglycerides 103 mg/dL (2-149) 06/06/20 10:19 Cholesterol 84 mg/dL (50-199) 06/06/20 10:19 LDL Cholesterol Direct 28 mg/dL (50-130) L 06/06/20 10:19 HDL Cholesterol 44 mg/dL (40-59) 06/06/20 10:19 Cholesterol/HDL Ratio 1.90 % 06/06/20 10:19 Vitamin B12 1170 pg/mL (211-911) H 06/10/20 14:49 TSH 4.440 mlU/mL (0.270-4.200) H 06/06/20 10:19 Free T4 1.55 ng/dL (0.76-1.46) H 06/06/20 10:19 PTH Intact 271.9 pg/mL (15-65) H 06/08/20 05:15 Urine Color Yellow (Yellow) 06/06/20 14:02 Urine Turbidity Cloudy (Clear) 06/06/20 14:02 Urine pH 6.0 (5.0-7.0) 06/06/20 14:02 Ur Specific Shushan 1.013 (1.003-1.030) 06/06/20 14:02 Urine Protein 100 mg/dl mg/dL (Negative) 06/06/20 14:02 Urine Glucose (UA) Neg mg/dL (Negative) 06/06/20 14:02 Urine Ketones Neg mg/dL (Negative) 06/06/20 14:02 Urine Blood Sm (Negative) 06/06/20 14:02 Urine Nitrite Neg (Negative) 06/06/20 14:02 Urine Bilirubin Neg (Negative) 06/06/20 14:02 Urine Urobilinogen < 2.0 mg/dL (<2.0) 06/06/20 14:02 Ur Leukocyte Esterase Lg (Negative) 06/06/20 14:02 Urine WBC (Auto) > 182.0 /HPF (0.0-6.0) H 06/06/20 14:02 Urine RBC (Auto) 55.0 /HPF (0.0-6.0) 06/06/20 14:02 U Epithel Cells (Auto) 1.0 /HPF (0-13.0) 06/06/20 14:02 Urine WBC Clumps 2+ /HPF 06/06/20 14:02 Urine Creatinine 57.0 mg/dL (0.1-20.0) H 06/06/20 21:05 Urine Sodium 85 mmol/L 06/06/20 21:05 Random Vancomycin 9.8 ug/mL (0-40.0) 06/09/20 04:30 Urine Opiates Screen Presumptive negative 06/06/20 14:02 Urine Methadone Screen Presumptive negative 06/06/20 14:02 Ur Barbiturates Screen Presumptive negative 06/06/20 14:02 Ur Phencyclidine Scrn Presumptive negative 06/06/20 14:02 Ur Amphetamines Screen Presumptive negative 06/06/20 14:02 U Benzodiazepines Scrn Presumptive negative 06/06/20 14:02 Urine Cocaine Screen Presumptive negative 06/06/20 14:02 U Marijuana (THC) Screen Presumptive negative 06/06/20 14:02 Drugs of Abuse Note Disclamer 06/06/20 14:02 Plasma/Serum Alcohol < 0.01 % (0-0.07) 06/06/20 10:19 C. difficile Tox (PCR) Negative (Negative) 06/08/20 Unknown Coronavirus (PCR) Negative (Negative) 06/07/20 09:15 Blood Type O POSITIVE 06/06/20 14:47 Antibody Screen Negative 06/06/20 14:47 Microbiology: Microbiology 06/08/20 10:11 Peripheral/Venous Blood Culture - Preliminary NO GROWTH AFTER 4 DAYS 06/08/20 10:11 Peripheral/Venous Blood Culture - Preliminary NO GROWTH AFTER 4 DAYS Torres/IV: Voiding Method Indwelling Catheter Active Medications - Current Medications Current Medications: Generic Name Dose Route Start Last Admin Trade Name Freq PRN Reason Stop Dose Admin Acetaminophen 650 mg 06/06/20 15:00 06/11/20 21:52 Acetaminophen 325 Mg Tab PO 650 mg Q6H PRN Administration Pain, Mild (1-3) Albuterol 2.5 mg 06/06/20 15:00 Albuterol 2.5 Mg/3 Ml Nebu IH Q3HRT PRN Shortness Of Breath Allopurinol 100 mg 06/07/20 10:00 06/12/20 09:55 Allopurinol 100 Mg Tab PO 100 mg QDAY YELENA Administration Calcium Carbonate/Glycine 500 mg 06/07/20 10:00 06/12/20 09:54 Calcium Carbonate 500 Mg Tab Chew PO 500 mg QDAY YELENA Administration Cholecalciferol 2,000 unit 06/07/20 10:00 06/12/20 09:53 Cholecalciferol (Vit D3) 1000 Unit (25 Mcg) Tab PO 2,000 unit QDAY YELENA Administration Cholestyramine Resin 4 gm 06/12/20 22:00 06/12/20 22:16 Cholestyramine (With Sugar) 4 Gm Packet PO 4 gm BID YELENA Administration Diclofenac Sodium 20 applic 06/07/20 10:00 06/12/20 10:18 Diclofenac Sodium 1% Topical Gel 100 Gm TP 20 applic QDAY YELENA Administration Dicyclomine HCl 10 mg 06/06/20 20:00 06/13/20 08:19 Dicyclomine 10 Mg Cap PO 10 mg TID YELENA Administration Famotidine 20 mg 06/13/20 10:00 Famotidine 20 Mg Tab PO QDAY YELENA Heparin Sodium (Porcine) 5,000 unit 06/07/20 22:00 06/12/20 22:16 Heparin 5,000 Unit/1 Ml Vial SUB-Q 5,000 unit Q12HR YELENA Administration Dextrose 1,000 mls @ 50 mls/hr 06/11/20 15:00 06/13/20 08:17 D5w IV 50 mls/hr DIRECT YELENA Administration Magnesium Citrate 300 ml 06/06/20 16:20 Magnesium Citrate 300 Ml Oral Liqd PO QDAY PRN Constipation Metoprolol Tartrate 25 mg 06/09/20 22:00 06/12/20 22:17 Metoprolol Tartrate 25 Mg Tab PO 25 mg BID YELENA Administration Pravastatin Sodium 10 mg 06/06/20 22:00 06/12/20 22:16 Pravastatin 20 Mg Tab PO 10 mg QHS YELENA Administration Sodium Chloride 10 ml 06/06/20 15:00 06/12/20 22:18 Sodium Chloride 0.9% 10 Ml Flush Syringe IV 10 ml BID YELENA Administration Sodium Chloride 10 ml 06/06/20 15:00 Sodium Chloride 0.9% 10 Ml Flush Syringe IV PRN PRN LINE FLUSH Nutrition/Malnutrition Assess - Dietary Evaluation Nutrition/Malnutrition Findings: Nutrition Notes Start: 06/08/20 11: 43 Freq: Status: Active Protocol: Document 06/10/20 14:41 CW (Rec: 06/10/20 14:48 CW [id number]) Nutrition Notes Initial or Follow up Reassessment Current Diagnosis Acute Kidney Injury,Diabetes, Hypertension Other Pertinent Diagnosis AMS, Dementia, UTI, metabolic encephalopathy, ?s/p CVA? Current Diet Mechanical soft diet Labs/Tests Na 146 BUN 84 Cr 2.7 Pertinent Medications reviewed Height 5 ft 8 in Weight 76.9 kg [place] Body Weight (kg) 70.00 BMI 25.7 Weight Status Appropriate Subjective/Other Information F/U for diet advancement. Pt diet advanced to mechanical sofr diet. RN rports pt is not eating much, only a few spoon fulls of applesauce but will consume liquids. Will order ONS. Percent of energy/protein needs met: negligible Burn Absent Trauma Absent GI Symptoms Diarrhea Difficulty In Swallowing Skin Integrity/Comment Stage 1 pressure ulcer Current % PO Poor (25-49%) Minimum of two criteria No Fluid Accumulation Mild (non-severe) #2 Nutrition Diagnosis Increased nutrient needs ( specify in comment below) Comments: protein Etiology wound healing Diagnosis Progress(for reassessment Continues documentation) #1 Nutrition Diagnosis Inadequate oral intake As Evidenced by Signs and Symptoms ST approved pt for PO diet Diagnosis Progress(for reassessment Improved documentation) Is patient on ventilator? No Is Patient Ambulatory and/or Out of Bed Yes REE-([facility]-ambulatory/OOB) [ [id number] [id number]] Calculation Used for Recommendations [facility] Additional Notes protein needs: 62 - 153g (0.8 - 1.2g/kgBW for ISAAC) fluid needs: 1 ml/kcal Nutrition Intervention Change Diet Order: Continue Mechanical Soft Diet, Initiate ONS Add Supplement/Snack (indicate name/kcal Nepro BID /protein ) Provides kCal: 850 Provides Protein (gm) 38 Goal #1 Meet at least 75% of kcal and proteins via PO Goal #2 wound healing Anticipated Discharge Needs: Mechanical Soft diet + ONS PRN Follow-Up By: 06/13/20 Additional Comments F/U intakes and ONS tolerance
[2020-06-13] MEDS ORDERED: MAGNESIUM SULFATE 1 GM in SODIUM CHLORIDE 0.9% 50 ML IV ONE (09:30)
[2020-06-13] MEDS ORDERED: POTASSIUM CHLORIDE ER 20 MEQ TAB PO ONE (09:30)
[2020-06-13] MEDS: CALCIUM CARBONATE 500 MG TAB CHEW PO SCH (10:24)
[2020-06-13] MEDS: CHOLECALCIFEROL (VIT D3) 1000 UNIT (25 mcg) TAB PO SCH (10:24)
[2020-06-13] MEDS: DICLOFENAC SODIUM 1% TOPICAL GEL 100 GM TP SCH (10:25)
[2020-06-13] MEDS: FAMOTIDINE 20 MG TAB PO SCH (10:25)
[2020-06-13] MEDS: HEPARIN 5,000 UNIT/1 ML VIAL SUB-Q SCH ×2 (10:25→21:27)
[2020-06-13] MEDS: METOPROLOL TARTRATE 25 MG TAB PO SCH ×2 (10:25→21:27)
[2020-06-13] MEDS: allopurinoL 100 MG TAB PO SCH (10:25)
[2020-06-13] MEDS: CHOLESTYRAMINE (WITH SUGAR) 4 GM PACKET PO SCH ×2 (10:50→21:50)
[2020-06-13] MEDS: POTASSIUM CHLORIDE ER 20 MEQ TAB PO SCH ×2 (10:51→14:28)
--- NOTE | 2020-06-13 11:21 | Progress Note ---
Assessment and Plan 1. Acute kidney injury: Vasomotor ISAAC in the setting of shock. Renal US ordered negative for hydro. Baseline renal function is unknown. Monitor renal function. Creatinine level is improving. Avoid nephrotoxic agents. Meds dosage based on GFR. 2. FEN: Hypernatremia, on IV D5W. Hypokalemia, replete K, monitor. Anion-gap metabolic acidosis, improved, monitor. Replete Phos. Monitor lytes and volume status. 3. Sepsis with shock: Currently off pressors. Monitor BP. 4. UTI: Abx per ID. 5. Acute hypoxemic respiratory failure: CXR clear. COVID test negative. NC O2 as needed. 6. Diarrhea: ?Colitis. C.diff negative. 7. R kidney mass: Further testing depends on clinical course. 8. Metabolic encephalopathy: Monitor. 9. H/o Dementia: Supportive care. 10. H/o HTN: Monitor BP. 11. Anemia, POA: Monitor. Subjective: Patient was seen and examined at the bedside. No new complaint. Objective: General appearance: well-developed, appears stated age, not in distress HEENT: ATNC Neck: trachea midline Respiratory: ctab Heart: regular, S1S2, no murmur Gastrointestinal: soft, normoactive bowel sounds, not tender Integumentary: no rash, warm and dry Ext: no edema Neurologic: alert, able to tell his name, able to move extremities Ext: trace edema : Hair catheter Subjective Date of service: 06/13/20 Principal diagnosis: shock Objective - Vital Signs Vital signs: Vital Signs - 12hr 06/12/20 06/13/20 06/13/20 23:30 03:55 07:20 Temperature 98.6 F 99.2 F 98.8 F Pulse Rate 80 82 76 Respiratory 16 16 18 Rate Blood Pressure 138/64 135/67 126/46 O2 Sat by Pulse 99 96 98 Oximetry - Lab 06/13/20 06:13 06/13/20 06:13 Most recent lab results ABG pH 7.329 pH Units (7.350-7.450) L 06/06/20 11:18 ABG pCO2 27.8 mm Hg 06/06/20 11:18 ABG pO2 258.1 mm Hg (80.0-90.0) H 06/06/20 11:18 ABG HCO3 14.3 mmol/L (20.0-26.0) L 06/06/20 11:18 ABG O2 Saturation 99.4 % (95.0-99.0) H 06/06/20 11:18 Calcium 7.3 mg/dL (8.4-10.2) L 06/13/20 06:13 Phosphorus 2.60 mg/dL (2.5-4.5) D 06/13/20 06:13 Magnesium 1.50 mg/dL (1.7-2.3) L 06/13/20 06:13 Urine Creatinine 57.0 mg/dL (0.1-20.0) H 06/06/20 21:05 Urine Sodium 85 mmol/L 06/06/20 21:05 Medications & Allergies - Medications Allergies/Adverse Reactions: Allergies No Known Allergies Allergy (Verified 06/06/20 15:21) Home Medications: Home Medications Medication Instructions Recorded Confirmed Last Taken Type Amlodipine Besylate [Norvasc] 5 mg PO QDAY 06/06/20 06/06/20 Unknown History Bisacodyl [Women's Gentle Laxative] 5 mg PO BID 06/06/20 06/06/20 Unknown History Calcium Carb/Magnesium Hydrox 500 mg PO QDAY 06/06/20 06/06/20 Unknown History [Antacid 1000-200 mg Tab Chew] Cholecalciferol (Vitamin D3) 2,000 unit PO QDAY 06/06/20 06/06/20 Unknown History [Vitamin D3 2,000 UNIT CAP] Dextrose/Dextrin/Maltose 24 gm PO ONCE 06/06/20 06/06/20 Unknown History [Insta-Glucose Gel] Diclofenac 1% [Diclofenac 1% 100 gm TP QDAY 06/06/20 06/06/20 Unknown History topical gel] Dicyclomine [Bentyl] 10 mg PO TID 06/06/20 06/06/20 Unknown History Docusate Sodium [Colace] 100 mg PO BID PRN 06/06/20 06/06/20 Unknown History Furosemide [Lasix] 40 mg PO QDAY 06/06/20 06/06/20 Unknown History Insulin Lispro [Insulin Lispro 10 unit SQ TID 06/06/20 06/06/20 Unknown History Kwikpen U-100] Magnesium Citrate [Citroma] 296 ml PO QDAY 06/06/20 06/06/20 Unknown History Melatonin [Melatonin 3MG TAB] 6 mg PO QHS 06/06/20 06/06/20 Unknown History Oxycodone HCl/Acetaminophen 1 each PO QDAY 06/06/20 06/06/20 Unknown History [Oxycodone-Acetaminophen 10-325] Pantoprazole [Protonix] 40 mg PO QDAY 06/06/20 06/06/20 Unknown History Pioglitazone HCl [Actos] 30 mg PO QDAY 06/06/20 06/06/20 Unknown History Polyethylene Glycol 3350 [Gavilax] 10 gm PO QDAY 06/06/20 06/06/20 Unknown History Pravastatin Sodium [Pravastatin] 10 mg PO QHS 06/06/20 06/06/20 Unknown History Tamsulosin [Flomax] 0.4 mg PO QDAY 06/06/20 06/06/20 Unknown History allopurinoL [Zyloprim] 100 mg PO QDAY 06/06/20 06/06/20 Unknown History lisinopriL [Lisinopril] 20 mg PO QDAY 06/06/20 06/06/20 Unknown History Active Medications: Generic Name Dose Route Start Last Admin Trade Name Freq PRN Reason Stop Dose Admin Acetaminophen 650 mg 06/06/20 15:00 06/11/20 21:52 Acetaminophen 325 Mg Tab PO 650 mg Q6H PRN Administration Pain, Mild (1-3) Albuterol 2.5 mg 06/06/20 15:00 Albuterol 2.5 Mg/3 Ml Nebu IH Q3HRT PRN Shortness Of Breath Allopurinol 100 mg 06/07/20 10:00 06/13/20 10:25 Allopurinol 100 Mg Tab PO 100 mg QDAY YELENA Administration Calcium Carbonate/Glycine 500 mg 06/07/20 10:00 06/13/20 10:24 Calcium Carbonate 500 Mg Tab Chew PO 500 mg QDAY YELENA Administration Cholecalciferol 2,000 unit 06/07/20 10:00 06/13/20 10:24 Cholecalciferol (Vit D3) 1000 Unit (25 Mcg) Tab PO 2,000 unit QDAY YELENA Administration Cholestyramine Resin 4 gm 06/12/20 22:00 06/13/20 10:50 Cholestyramine (With Sugar) 4 Gm Packet PO 4 gm BID YELENA Administration Diclofenac Sodium 20 applic 06/07/20 10:00 06/13/20 10:25 Diclofenac Sodium 1% Topical Gel 100 Gm TP 20 applic QDAY YELENA Administration Dicyclomine HCl 10 mg 06/06/20 20:00 06/13/20 08:19 Dicyclomine 10 Mg Cap PO 10 mg TID YELENA Administration Famotidine 20 mg 06/13/20 10:00 06/13/20 10:25 Famotidine 20 Mg Tab PO 20 mg QDAY YELENA Administration Heparin Sodium (Porcine) 5,000 unit 06/07/20 22:00 06/13/20 10:25 Heparin 5,000 Unit/1 Ml Vial SUB-Q 5,000 unit Q12HR YELENA Administration Dextrose 1,000 mls @ 50 mls/hr 06/11/20 15:00 06/13/20 08:17 D5w IV 50 mls/hr DIRECT YELENA Administration Magnesium Sulfate 3 gm/ Sodium 106 mls @ 35.333 mls/hr 06/13/20 09:27 1 10:50 Chloride IV 06/13/20 12:26 35.333 mls/hr ONCE ONE Administration Magnesium Citrate 300 ml 06/06/20 16:20 Magnesium Citrate 300 Ml Oral Liqd PO QDAY PRN Constipation Metoprolol Tartrate 25 mg 06/09/20 22:00 06/13/20 10:25 Metoprolol Tartrate 25 Mg Tab PO 25 mg BID YELENA Administration Potassium Chloride 40 meq 06/13/20 10:00 06/13/20 10:51 Potassium Chloride Er 20 Meq Tab PO 06/13/20 14:01 Not Given Q8HR YELENA Pravastatin Sodium 10 mg 06/06/20 22:00 06/12/20 22:16 Pravastatin 20 Mg Tab PO 10 mg QHS YELENA Administration Sodium Chloride 10 ml 06/06/20 15:00 06/13/20 10:25 Sodium Chloride 0.9% 10 Ml Flush Syringe IV 10 ml BID YELENA Administration Sodium Chloride 10 ml 06/06/20 15:00 Sodium Chloride 0.9% 10 Ml Flush Syringe IV PRN PRN LINE FLUSH
--- NOTE | 2020-06-13 14:04 | Progress Note ---
Assessment and Plan Pt resting comfortably in bed, pleasantly confused. No CP or SOB overnight. Tele reviewed: SR 73. No events. Troponins elevation appears consistent with NSTEMI type II. Josh are trending downwards. No systemic AC at this time in regards to AFib in setting of anemia and transient nature of AFib (<24Hr bout). Recommend further eval/management of anemia per primary. Pt noted to have EF 15-20% with LBBB on ECG. Unknown etiology or chronicity of these diagnoses. No current clinical evidence of acutely decompensated HF. Per [facility] records, pt saw [facility] in 1998 and underwent LHC which did not show any significant findings. Will likely proceed with conservative cardiac management given pt's advanced age, dementia and multiple co-morbidities. Consider stress testing for further evaluation of newly diagnosed CMP and LBBB once medically stabilized - can be done as OP. No ACEI/ARB in setting of renal failure. F/u BMP in AM. Follow nephrology recs. Continue antihypertensive regimen. Continue Metoprolol 25mg PO BID as tolerated. Will follow. The patient has been seen in conjunction with Dr. Rosa who agrees with the assessment and plan of care. - Patient Problems (1) Altered mental status Current Visit: Yes Status: Acute (2) Sepsis Current Visit: Yes Status: Acute (3) Septic shock Current Visit: Yes Status: Acute (4) Urinary tract infection Current Visit: Yes Status: Acute Qualifiers: Encounter type: initial encounter (5) Renal failure Current Visit: Yes Status: Acute (6) Diarrhea Current Visit: Yes Status: Acute (7) Anemia Current Visit: Yes Status: Acute (8) Cardiomyopathy Current Visit: Yes Status: Chronic (9) LBBB (left bundle branch block) Current Visit: Yes Status: Acute (10) Transient atrial fibrillation Current Visit: Yes Status: Acute (11) Dementia Current Visit: Yes Status: Chronic (12) History of CVA (cerebrovascular accident) Current Visit: Yes Status: Chronic (13) Diabetes Current Visit: Yes Status: Chronic (14) NSTEMI Current Visit: Yes Status: Chronic Suspect type II Subjective Date of service: 06/13/20 Principal diagnosis: shock Interval history: Pt resting comfortably in bed, pleasantly confused. No CP or SOB overnight. Tele reviewed: SR 73. No events. Objective Last Vital Signs Temp 98.8 F 06/13/20 07:20 Pulse 76 06/13/20 07:20 Resp 18 06/13/20 07:20 BP 126/46 06/13/20 07:20 Pulse Ox 98 06/13/20 07:20 - Physical Examination General: No Apparent Distress HEENT: Positive: PERRL, Normocephaly, Mucus Membranes Moist Neck: Positive: neck supple, trachea midline Cardiac: Positive: Reg Rate and Rhythm, S1/S2 Lungs: Positive: clear to auscultation, Normal Breath Sounds Neuro: Positive: Grossly Intact, Other (confused) Abdomen: Positive: Active Bowel Sounds. Negative: Tender Skin: Negative: Rash Musculoskeletal: No Pain Extremities: Present: upper extr. pulses, lower extr. pulses. Absent: edema - Labs and Meds CBC 06/13/20 Range/Units 06:13 WBC 13.8 H (4.5-11.0) K/mm3 RBC 2.32 L (3.65-5.03) M/mm3 Hgb 7.2 L (11.8-15.2) gm/dl Hct 22.4 L (35.5-45.6) % Plt Count 175 (140-440) K/mm3 Lymph # (Auto) 0.9 L (1.2-5.4) K/mm3 [place] # (Auto) 0.7 (0.0-0.8) K/mm3 Eos # (Auto) 0.2 (0.0-0.4) K/mm3 Baso # (Auto) 0.0 (0.0-0.1) K/mm3 Comprehensive Metabolic Panel 06/13/20 Range/Units 06:13 Sodium 146 H (137-145) mmol/L Potassium 3.0 L (3.6-5.0) mmol/L Chloride 114.6 H (98-107) mmol/L Carbon Dioxide 24 (22-30) mmol/L BUN 38 H (9-20) mg/dL Creatinine 1.4 H (0.8-1.3) mg/dL Glucose 131 H (75-100) mg/dL Calcium 7.3 L (8.4-10.2) mg/dL - Imaging and Cardiology EKG: report reviewed, image reviewed Echo: report reviewed (06/06/2020 showed EF 15-20%, LV borderline dilated, no significant valvular abnormalities. ) Cardiac cath: report reviewed (1998 - no significant findings) - Telemetry EKG Rhythm: Sinus Rhythm - EKG Sinus rhythms and dysrhythmias: sinus rhythm AV and intraventricular conduction: left bundle branch block
--- NOTE | 2020-06-13 14:07 | Gastroenterology Progress Note ---
Assessment and Plan 1. GI: pt presented w/ shock now with colitis and loose stool - C. diff and other stool cx's negative - antibiotics per ID - Questran started, continue current meds - continue po, advance as tolerated - no plans to scope at this time - when diarrhea stable ok to dc from GI standpoint - will follow Subjective Date of service: 06/13/20 Principal diagnosis: shock Interval history: - still with loose stool but somewhat improving. No other specific GI complaints. Objective - Constitutional Vitals: Temp Pulse Resp BP Pulse Ox 98.8 F 76 18 126/46 98 06/13/20 07:20 06/13/20 07:20 06/13/20 07:20 06/13/20 07:20 06/13/20 07:20 General appearance: no acute distress - EENT Eyes: PERRL - Respiratory Respiratory: bilateral: CTA - Cardiovascular Rhythm: regular Heart Sounds: Present: S1 & S2 - Gastrointestinal General gastrointestinal: Present: soft, non-tender, non-distended - Labs CBC & Chem 7: 06/13/20 06:13 06/13/20 06:13 Labs: Laboratory Results - last 24 hr 06/12/20 06/12/20 06/13/20 15:53 20:46 06:13 WBC RBC Hgb Hct MCV MCH MCHC RDW Plt Count Lymph % (Auto) [place] % (Auto) Eos % (Auto) Baso % (Auto) Lymph # (Auto) [place] # (Auto) Eos # (Auto) Baso # (Auto) Seg Neutrophils % Seg Neutrophils # Sodium 146 H Potassium 3.0 L Chloride 114.6 H Carbon Dioxide 24 Anion Gap 10 BUN 38 H Creatinine 1.4 H Estimated GFR 59 BUN/Creatinine Ratio 27 Glucose 131 H POC Glucose 138 H 133 H Calcium 7.3 L Phosphorus 2.60 D Magnesium 1.50 L 06/13/20 06/13/20 06:13 07:18 WBC 13.8 H RBC 2.32 L Hgb 7.2 L Hct 22.4 L MCV 97 H MCH 31 MCHC 32 RDW 14.3 Plt Count 175 Lymph % (Auto) 6.8 L [place] % (Auto) 5.0 Eos % (Auto) 1.7 Baso % (Auto) 0.2 Lymph # (Auto) 0.9 L [place] # (Auto) 0.7 Eos # (Auto) 0.2 Baso # (Auto) 0.0 Seg Neutrophils % 86.3 H Seg Neutrophils # 11.9 H Sodium Potassium Chloride Carbon Dioxide Anion Gap BUN Creatinine Estimated GFR BUN/Creatinine Ratio Glucose POC Glucose 113 H Calcium Phosphorus Magnesium
--- NOTE | 2020-06-13 16:37 | Progress Note ---
Assessment and Plan Cultures: Blood culture 06/06/2020 coagulase-negative staph 1 out of 4 Blood culture 06/08/2020 no growth today C. difficile PCR negative SARS-CoV-2 PCR negative Urine culture 06/07/2020 no growth Assessment: 80 years old male with history of dementia, CVA, debility, diabetes mellitus, secondary to few hours of unresponsiveness at breakfast at his assisted living facility: #Sepsis with septic shock: Resolved, remarkable improvement, off pressors; source UTI +/- colitis. Completed cefepime 5 days #Extensive colitis: remains with large foul smelling diarrhea. seen on CT ? ischemia. C diff neg #Coagulase-negative staph bacteremia: 1 out of 4 likely contaminant. #Acute hypoxemic respiratory failure: now on NC O2. CXR clear. SARS-CoV-2 PCR negative. #UTI: with hematuria, urine culture no growth #Acute encephalopathy: due to sepsis> CT no acute changes. Resolved. #ISAAC: ? from sepsis, better #RVR A. fib: On amiodarone, cardiology on board #Thrombocytopenia: Monitor platelets, likely due to sepsis, resolved. Recommendations: -Avoid laxative -remove torres as feasible -monitor leukocytosis Narayan Rowley MD [facility] O: [phone] F: [phone] Subjective Date of service: 06/13/20 Principal diagnosis: shock Interval history: Afebrile, white count 13.8.No other acute change. Objective - Exam Narrative Exam: General appearance: Alert in NAD on NC O2 Eyes: anicteric sclerae, moist conjunctivae; no lid-lag; PERRLA HENT: Normocephalic, Atraumatic; normal external ears, nares open, oropharynx limited edentulous Neck: supple, tracheal midline, no JVD Lungs: Clear to auscultation bilaterally CV: RRR no murmur Abdomen: Soft, nontender, ventral hernia Extremities: no edema, no cyanosis Skin: No rash. Psych: no agitated Neuro: Alert, follows simple commands - Constitutional Vitals: Vital Signs Temp Pulse Resp BP Pulse Ox 98.8 F 76 18 126/46 98 06/13/20 07:20 06/13/20 07:20 06/13/20 07:20 06/13/20 07:20 06/13/20 07:20 Temperature -Last 24 Hours Temperature 98.8 F Temperature 99.2 F Temperature 98.6 F Temperature 99.4 F Temperature 100.0 F - Labs CBC & Chem 7: 06/13/20 06:13 06/13/20 06:13 Labs: Abnormal lab results 06/12/20 06/13/20 06/13/20 Range/Units 20:46 06:13 06:13 WBC 13.8 H (4.5-11.0) K/mm3 RBC 2.32 L (3.65-5.03) M/mm3 Hgb 7.2 L (11.8-15.2) gm/dl Hct 22.4 L (35.5-45.6) % MCV 97 H (84-94) fl Lymph % (Auto) 6.8 L (13.4-35.0) % Lymph # (Auto) 0.9 L (1.2-5.4) K/mm3 Seg Neutrophils % 86.3 H (40.0-70.0) % Seg Neutrophils # 11.9 H (1.8-7.7) K/mm3 Sodium 146 H (137-145) mmol/L Potassium 3.0 L (3.6-5.0) mmol/L Chloride 114.6 H (98-107) mmol/L BUN 38 H (9-20) mg/dL Creatinine 1.4 H (0.8-1.3) mg/dL Glucose 131 H (75-100) mg/dL POC Glucose 133 H (70-105) mg/dL Calcium 7.3 L (8.4-10.2) mg/dL Magnesium 1.50 L (1.7-2.3) mg/dL 06/13/20 06/13/20 Range/Units 07:18 11:35 WBC (4.5-11.0) K/mm3 RBC (3.65-5.03) M/mm3 Hgb (11.8-15.2) gm/dl Hct (35.5-45.6) % MCV (84-94) fl Lymph % (Auto) (13.4-35.0) % Lymph # (Auto) (1.2-5.4) K/mm3 Seg Neutrophils % (40.0-70.0) % Seg Neutrophils # (1.8-7.7) K/mm3 Sodium (137-145) mmol/L Potassium (3.6-5.0) mmol/L Chloride (98-107) mmol/L BUN (9-20) mg/dL Creatinine (0.8-1.3) mg/dL Glucose (75-100) mg/dL POC Glucose 113 H 109 H (70-105) mg/dL Calcium (8.4-10.2) mg/dL Magnesium (1.7-2.3) mg/dL
[2020-06-13] MEDS: PRAVASTATIN 20 MG TAB PO SCH (21:27)
[2020-06-14] MEDS: DEXTROSE 5% IN WATER 1,000 ML IV SCH ×2 (04:52→23:21)
[2020-06-14 05:58] LABS: Hematocrit 22.6 % (35.5-45.6); Hemoglobin 7.1 gm/dl (11.8-15.2); Mean Corpuscular HGB Conc 32 % (32-34); Mean Corpuscular Volume 98 fl (84-94); Platelet Count 172 K/mm3 (140-440); Red Cell Distribution Width 14.6 % (13.2-15.2)
[2020-06-14 06:21] LABS: Alanine Aminotransferase 20 units/L (7-56); Albumin 2.4 g/dL (3.9-5); BUN/Creatinine Ratio 24; Blood Urea Nitrogen 31 mg/dL (9-20); Calcium 7.2 mg/dL (8.4-10.2); Hemolysis Index 5
--- NOTE | 2020-06-14 08:42 | Progress Note ---
Assessment and Plan 1. Acute kidney injury: Vasomotor ISAAC in the setting of shock. Renal US ordered negative for hydro. Baseline renal function is unknown. Monitor renal function. Creatinine level is improving. Avoid nephrotoxic agents. Meds dosage based on GFR. 2. FEN: Hypernatremia, on IV D5W. Hypokalemia, replete K, monitor. Anion-gap metabolic acidosis, improved, monitor. Replete Phos. Monitor lytes and volume status. 3. Sepsis with shock: Currently off pressors. Monitor BP. 4. UTI: Abx per ID. 5. Acute hypoxemic respiratory failure: CXR clear. COVID test negative. NC O2 as needed. 6. Diarrhea: ?Colitis. C.diff negative. 7. R kidney mass: Further testing depends on clinical course. 8. Metabolic encephalopathy: Monitor. 9. H/o Dementia: Supportive care. 10. H/o HTN: Monitor BP. 11. Anemia, POA: Monitor. Subjective: Patient was seen and examined at the bedside. No new complaint. Objective: General appearance: well-developed, appears stated age, not in distress HEENT: ATNC Neck: trachea midline Respiratory: ctab Heart: regular, S1S2, no murmur Gastrointestinal: soft, normoactive bowel sounds, not tender Integumentary: no rash, warm and dry Ext: no edema Neurologic: alert, able to tell his name, able to move extremities, confused Ext: trace edema : condom catheter Subjective Date of service: 06/14/20 Principal diagnosis: shock Objective - Vital Signs Vital signs: Vital Signs - 12hr 06/13/20 06/13/20 06/13/20 21:27 22:00 23:47 Temperature 98.3 F Pulse Rate 75 74 74 Respiratory 16 Rate Blood Pressure 127/51 137/54 O2 Sat by Pulse 97 Oximetry 06/14/20 03:58 Temperature 99.0 F Pulse Rate 74 Respiratory 18 Rate Blood Pressure 134/68 O2 Sat by Pulse 97 Oximetry - Lab 06/14/20 05:23 06/14/20 05:23 Most recent lab results ABG pH 7.329 pH Units (7.350-7.450) L 06/06/20 11:18 ABG pCO2 27.8 mm Hg 06/06/20 11:18 ABG pO2 258.1 mm Hg (80.0-90.0) H 06/06/20 11:18 ABG HCO3 14.3 mmol/L (20.0-26.0) L 06/06/20 11:18 ABG O2 Saturation 99.4 % (95.0-99.0) H 06/06/20 11:18 Calcium 7.2 mg/dL (8.4-10.2) L 06/14/20 05:23 Phosphorus 2.60 mg/dL (2.5-4.5) D 06/13/20 06:13 Magnesium 1.50 mg/dL (1.7-2.3) L 06/13/20 06:13 Urine Creatinine 57.0 mg/dL (0.1-20.0) H 06/06/20 21:05 Urine Sodium 85 mmol/L 06/06/20 21:05 Medications & Allergies - Medications Allergies/Adverse Reactions: Allergies No Known Allergies Allergy (Verified 06/06/20 15:21) Home Medications: Home Medications Medication Instructions Recorded Confirmed Last Taken Type Amlodipine Besylate [Norvasc] 5 mg PO QDAY 06/06/20 06/06/20 Unknown History Bisacodyl [Women's Gentle Laxative] 5 mg PO BID 06/06/20 06/06/20 Unknown History Calcium Carb/Magnesium Hydrox 500 mg PO QDAY 06/06/20 06/06/20 Unknown History [Antacid 1000-200 mg Tab Chew] Cholecalciferol (Vitamin D3) 2,000 unit PO QDAY 06/06/20 06/06/20 Unknown History [Vitamin D3 2,000 UNIT CAP] Dextrose/Dextrin/Maltose 24 gm PO ONCE 06/06/20 06/06/20 Unknown History [Insta-Glucose Gel] Diclofenac 1% [Diclofenac 1% 100 gm TP QDAY 06/06/20 06/06/20 Unknown History topical gel] Dicyclomine [Bentyl] 10 mg PO TID 06/06/20 06/06/20 Unknown History Docusate Sodium [Colace] 100 mg PO BID PRN 06/06/20 06/06/20 Unknown History Furosemide [Lasix] 40 mg PO QDAY 06/06/20 06/06/20 Unknown History Insulin Lispro [Insulin Lispro 10 unit SQ TID 06/06/20 06/06/20 Unknown History Kwikpen U-100] Magnesium Citrate [Citroma] 296 ml PO QDAY 06/06/20 06/06/20 Unknown History Melatonin [Melatonin 3MG TAB] 6 mg PO QHS 06/06/20 06/06/20 Unknown History Oxycodone HCl/Acetaminophen 1 each PO QDAY 06/06/20 06/06/20 Unknown History [Oxycodone-Acetaminophen 10-325] Pantoprazole [Protonix] 40 mg PO QDAY 06/06/20 06/06/20 Unknown History Pioglitazone HCl [Actos] 30 mg PO QDAY 06/06/20 06/06/20 Unknown History Polyethylene Glycol 3350 [Gavilax] 10 gm PO QDAY 06/06/20 06/06/20 Unknown His tory Pravastatin Sodium [Pravastatin] 10 mg PO QHS 06/06/20 06/06/20 Unknown History Tamsulosin [Flomax] 0.4 mg PO QDAY 06/06/20 06/06/20 Unknown History allopurinoL [Zyloprim] 100 mg PO QDAY 06/06/20 06/06/20 Unknown History lisinopriL [Lisinopril] 20 mg PO QDAY 06/06/20 06/06/20 Unknown History Active Medications: Generic Name Dose Route Start Last Admin Trade Name Freq PRN Reason Stop Dose Admin Acetaminophen 650 mg 06/06/20 15:00 06/11/20 21:52 Acetaminophen 325 Mg Tab PO 650 mg Q6H PRN Administration Pain, Mild (1-3) Albuterol 2.5 mg 06/06/20 15:00 Albuterol 2.5 Mg/3 Ml Nebu IH Q3HRT PRN Shortness Of Breath Allopurinol 100 mg 06/07/20 10:00 06/13/20 10:25 Allopurinol 100 Mg Tab PO 100 mg QDAY YELENA Administration Calcium Carbonate/Glycine 500 mg 06/07/20 10:00 06/13/20 10:24 Calcium Carbonate 500 Mg Tab Chew PO 500 mg QDAY YELENA Administration Cholecalciferol 2,000 unit 06/07/20 10:00 06/13/20 10:24 Cholecalciferol (Vit D3) 1000 Unit (25 Mcg) Tab PO 2,000 unit QDAY YELENA Administration Cholestyramine Resin 4 gm 06/12/20 22:00 06/13/20 21:50 Cholestyramine (With Sugar) 4 Gm Packet PO 4 gm BID YELENA Administration Diclofenac Sodium 20 applic 06/07/20 10:00 06/13/20 10:25 Diclofenac Sodium 1% Topical Gel 100 Gm TP 20 applic QDAY YELENA Administration Dicyclomine HCl 10 mg 06/06/20 20:00 06/13/20 21:50 Dicyclomine 10 Mg Cap PO 10 mg TID YELENA Administration Famotidine 20 mg 06/13/20 10:00 06/13/20 10:25 Famotidine 20 Mg Tab PO 20 mg QDAY YELENA Administration Heparin Sodium (Porcine) 5,000 unit 06/07/20 22:00 06/13/20 21:27 Heparin 5,000 Unit/1 Ml Vial SUB-Q 5,000 unit Q12HR YELENA Administration Dextrose 1,000 mls @ 50 mls/hr 06/11/20 15:00 06/14/20 04:52 D5w IV 50 mls/hr DIRECT YELENA Administration Magnesium Citrate 300 ml 06/06/20 16:20 Magnesium Citrate 300 Ml Oral Liqd PO QDAY PRN Constipation Metoprolol Tartrate 25 mg 06/09/20 22:00 06/13/20 21:27 Metoprolol Tartrate 25 Mg Tab PO 25 mg BID YELENA Administration Pravastatin Sodium 10 mg 06/06/20 22:00 06/13/20 21:27 Pravastatin 20 Mg Tab PO 10 mg QHS EYLENA Administration Sodium Chloride 10 ml 06/06/20 15:00 06/13/20 21:28 Sodium Chloride 0.9% 10 Ml Flush Syringe IV 10 ml BID YELENA Administration Sodium Chloride 10 ml 06/06/20 15:00 Sodium Chloride 0.9% 10 Ml Flush Syringe IV PRN PRN LINE FLUSH
[2020-06-14] MEDS: DICYCLOMINE 10 MG CAP PO SCH ×3 (09:36→23:02)
[2020-06-14] MEDS: CHOLESTYRAMINE (WITH SUGAR) 4 GM PACKET PO SCH ×2 (10:35→23:01)
[2020-06-14] MEDS: CALCIUM CARBONATE 500 MG TAB CHEW PO SCH (10:35)
[2020-06-14] MEDS: CHOLECALCIFEROL (VIT D3) 1000 UNIT (25 mcg) TAB PO SCH (10:35)
[2020-06-14] MEDS: allopurinoL 100 MG TAB PO SCH (10:35)
[2020-06-14] MEDS: HEPARIN 5,000 UNIT/1 ML VIAL SUB-Q SCH ×2 (10:36→23:02)
[2020-06-14] MEDS: METOPROLOL TARTRATE 25 MG TAB PO SCH ×2 (10:36→23:02)
[2020-06-14] MEDS: FAMOTIDINE 20 MG TAB PO SCH (10:36)
[2020-06-14] MEDS: DICLOFENAC SODIUM 1% TOPICAL GEL 100 GM TP SCH (10:38)
[2020-06-14] MEDS: TAMSULOSIN 0.4 MG CAP PO SCH (10:59)
--- NOTE | 2020-06-14 11:31 | Gastroenterology Progress Note ---
Assessment and Plan 1. GI: pt presented w/ shock now with colitis and loose stool - C. diff and other stool cx's negative - more alert w/ signs decreasing loose stools - antibiotics per ID - Continue current meds including Questran - continue po, advance as tolerated - no plans to scope at this time - when diarrhea stable ok to dc from GI standpoint - will follow Subjective Date of service: 06/14/20 Principal diagnosis: shock Interval history: - signs decrease diarrhea per staff. More alert but confused. Denies other complaints. Objective - Constitutional Vitals: Temp Pulse Resp BP Pulse Ox 97.5 F L 86 18 136/51 97 06/14/20 07:38 06/14/20 10:36 06/14/20 07:38 06/14/20 10:36 06/14/20 07:38 General appearance: no acute distress - EENT Eyes: PERRL - Respiratory Respiratory: bilateral: CTA - Cardiovascular Rhythm: regular Heart Sounds: Present: S1 & S2 - Gastrointestinal General gastrointestinal: Present: soft, non-tender, non-distended - Labs CBC & Chem 7: 06/14/20 05:23 06/14/20 05:23 Labs: Laboratory Results - last 24 hr 06/13/20 06/13/20 06/13/20 11:35 16:42 21:25 WBC RBC Hgb Hct MCV MCH MCHC RDW Plt Count Sodium Potassium Chloride Carbon Dioxide Anion Gap BUN Creatinine Estimated GFR BUN/Creatinine Ratio Glucose POC Glucose 109 H 132 H 127 H Calcium Total Bilirubin AST ALT Alkaline Phosphatase Total Protein Albumin Albumin/Globulin Ratio 06/14/20 06/14/20 06/14/20 05:23 05:23 07:36 WBC 11.9 H RBC 2.30 L Hgb 7.1 L Hct 22.6 L MCV 98 H MCH 31 MCHC 32 RDW 14.6 Plt Count 172 Sodium 145 Potassium 3.7 D Chloride 113.6 H Carbon Dioxide 22 Anion Gap 13 BUN 31 H Creatinine 1.3 Estimated GFR > 60 BUN/Creatinine Ratio 24 Glucose 101 H POC Glucose 95 Calcium 7.2 L Total Bilirubin 0.20 AST 19 ALT 20 Alkaline Phosphatase 55 Total Protein 4.9 L Albumin 2.4 L Albumin/Globulin Ratio 1.0 06/14/20 11:11 WBC RBC Hgb Hct MCV MCH MCHC RDW Plt Count Sodium Potassium Chloride Carbon Dioxide Anion Gap BUN Creatinine Estimated GFR BUN/Creatinine Ratio Glucose POC Glucose 90 Calcium Total Bilirubin AST ALT Alkaline Phosphatase Total Protein Albumin Albumin/Globulin Ratio
--- NOTE | 2020-06-14 12:14 | Progress Note ---
Assessment and Plan Pt is maintaining NSR. Currently stable cardiac status. Cont present cardiac management, including PO lopressor 25mg BID. Consider initiation of ACEI/ARB if/when ok per nephrology team. Renal indices are improving. No systemic AC at this time in regards to AFib in setting of anemia and transient nature of AFib (<24Hr bout). Pt noted to have persistent anemia and diarrhea. GI recs noted - C. diff and other stool cx's negative, antibiotics per ID, continue po, advance as tolerated, no plans to scope at this time, when diarrhea stable ok to dc from GI standpoint. 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 Unknown etiology or chronicity of these diagnoses. No current clinical evidence of acutely decompensated HF. Per [facility] records, pt saw [facility]ology in 1998 and underwent LHC which did not show any significant findings. Continue with conservative cardiac management given pt's advanced age, dementia and multiple co-morbidities. Nothing further to add from cardiac standpoint at this time. Will follow on as needed basis. Recommend pt follow up in our office with Dr. Rosa within 2 weeks of discharge ([phone]). The patient has been seen in conjunction with Dr. Rosa who agrees with the assessment and plan of care. - Patient Problems (1) Altered mental status Current Visit: Yes Status: Acute (2) Sepsis Current Visit: Yes Status: Acute (3) Septic shock Current Visit: Yes Status: Acute (4) Urinary tract infection Current Visit: Yes Status: Acute Qualifiers: Encounter type: initial encounter (5) Renal failure Current Visit: Yes Status: Acute (6) Diarrhea Current Visit: Yes Status: Acute (7) Anemia Current Visit: Yes Status: Acute (8) Cardiomyopathy Current Visit: Yes Status: Chronic (9) LBBB (left bundle branch block) Current Visit: Yes Status: Acute (10) Transient atrial fibrillation Current Visit: Yes Status: Acute (11) Dementia Current Visit: Yes Status: Chronic (12) History of CVA (cerebrovascular accident) Current Visit: Yes Status: Chronic (13) Diabetes Current Visit: Yes Status: Chronic Subjective Date of service: 06/14/20 Principal diagnosis: shock Interval history: pt resting in bed, NAD, pleasantly confused. tele reviewed - in SR HR 80s. Objective Last Vital Signs Temp 97.5 F L 06/14/20 07:38 Pulse 86 06/14/20 10:36 Resp 17 06/14/20 10:00 BP 136/51 06/14/20 10:36 Pulse Ox 98 06/14/20 10:00 - Physical Examination General: No Apparent Distress HEENT: Positive: PERRL, Normocephaly, Mucus Membranes Moist Neck: Positive: neck supple, trachea midline Cardiac: Positive: Reg Rate and Rhythm, S1/S2 Lungs: Positive: Decreased Breath Sounds Neuro: Positive: Grossly Intact, Other (confused) Abdomen: Positive: Active Bowel Sounds. Negative: Tender Skin: Negative: Rash Musculoskeletal: No Pain Extremities: Present: upper extr. pulses, lower extr. pulses. Absent: edema - Labs and Meds Cardiac Enzymes 06/14/20 Range/Units 05:23 AST 19 (5-40) units/L CBC 06/14/20 Range/Units 05:23 WBC 11.9 H (4.5-11.0) K/mm3 RBC 2.30 L (3.65-5.03) M/mm3 Hgb 7.1 L (11.8-15.2) gm/dl Hct 22.6 L (35.5-45.6) % Plt Count 172 (140-440) K/mm3 Comprehensive Metabolic Panel 06/14/20 Range/Units 05:23 Sodium 145 (137-145) mmol/L Potassium 3.7 D (3.6-5.0) mmol/L Chloride 113.6 H (98-107) mmol/L Carbon Dioxide 22 (22-30) mmol/L BUN 31 H (9-20) mg/dL Creatinine 1.3 (0.8-1.3) mg/dL Glucose 101 H (75-100) mg/dL Calcium 7.2 L (8.4-10.2) mg/dL AST 19 (5-40) units/L ALT 20 (7-56) units/L Alkaline Phosphatase 55 (35-129) units/L Total Protein 4.9 L (6.3-8.2) g/dL Albumin 2.4 L (3.9-5) g/dL - Imaging and Cardiology EKG: report reviewed, image reviewed Echo: report reviewed (06/06/2020 showed EF 15-20%, LV borderline dilated, no significant valvular abnormalities. ) Cardiac cath: report reviewed (1998 - no significant findings) - Telemetry EKG Rhythm: Sinus Rhythm - EKG Sinus rhythms and dysrhythmias: sinus rhythm AV and intraventricular conduction: left bundle branch block
--- NOTE | 2020-06-14 12:22 | Progress Note ---
Assessment and Plan Assessment and plan: This is a 80-year-old male who is a resident of assisted living facility with vascular dementia, cerebral sclerosis, debility, diabetes mellitus who presents to the emergency department on 06/06 with complaints of lethargy and diminished cognition as per daughter he developed an episode of unresponsiveness while at breakfast at at his assisted living facility. Patient was found to have a urinary tract infection complicated by sepsis and septic shock, acute kidney injury, toxic metabolic encephalopathy as well as metabolic acidosis. Patient was hypotensive with systolic blood pressures in the 50s and was initiated on vasopressor support in the emergency department. Patient was admitted to the hospital service with consults to nephrology and [facility]. Septic Shock Metabolic encephalopathy Coag negative Staphylococcus 03/07 bottles Urinary tract infection Possible ISCHEMIC COLITIS Acute hypoxic respiratory failure Acute kidney injury Metabolic acidosis Diarrhea Dementia Hypertension Anemia 06/07: Patient remains on dopamine, vasopressin and Levophed. Nephrology has started the patient on sodium bicarbonate drip for metabolic acidosis. Infectious disease initiated vancomycin in addition to the cefepime and ordered a C. difficile. 06/08: Patient has gram-positive cocci bacteremia in 03/07 bottles which grew to be coag negative staph coccus and he has repeat blood cultures in progress. Urine culture has no growth to date and he is on IV vancomycin and cefepime. Yesterday we ordered a C. difficile PCR which is pending. Patient had a moment of tachycardia into the 130s and a stat EKG was obtained. Patient was given amiodarone bolus by [facility] and cardiology was consulted. Patient is hyperchloremic today however his metabolic acidosis and BUN/creatinine is slightly improved to 93/3.2 from 100/3.6 and his repeat lactic acid is 1.5. At the time my examination patient was on Levophed at 6, vasopressin 0.03 and dopamine at 6. This morning patient failed his swallow eval and ST evaluation was ordered. Of note patient's echocardiogram shows reduced 15 to 20% with borderline left ventricular hypertrophy. 06/09: This morning his speech evaluation was completed and he has been cleared for mechanical soft diet with thin liquids. Patient complained of right-sided chest pain with radiation to shoulders and a stat EKG cardiac enzymes were ordered. Patient was recultured yesterday and those have no growth to date and his vancomycin was stopped. Infectious disease team recommends removal of Torres catheter when feasible and a CT abdomen/pelvis when stable. Patient has been cleared to transfer to the floor by cardiology and [facility]. 06/10/2020; patient is on IV cefepime for sepsis due to UTI day 3 out of 5. Vancomycin discontinued. Patient is complaining pleuritic chest pain. Patient was evaluated by cardiology for elevated troponin and episode of A. fib on admission. Cardiology discontinued amiodarone and put her on Lopressor. Cardiology recommend against anticoagulation because of patient's anemia. Hemoglobin this morning was 7.4 and anemia work-up is in progress. I did o rdered CT abdomen and pelvis. PT OT evaluation. Patient has ISAAC and nephrology is following. Patient has rectal tube and liquid stool in the bag. I ordered stool for C. difficile. We will continue to monitor. 06/11/2020; patient is on cefepime day 06/06. CT abdomen and pelvis was done and significant for colitis, ischemic colitis is possibility given hypotension and elevated lactic acid level. I will consult GI. Patient has episode of A. fib for less than 24 hours, cardiology was consulted and recommend to be on Lopressor. No need for coagulation because of his anemia. Hemoglobin this morning is improved to 8. Anemia work-up was done, no iron deficiency anemia identified. ISAAC is improving. C. difficile was negative. 06/12/2020; continue cefepime per ID recommendation. CT abdomen and pelvis is significant for ischemic colitis likely due to septic shock, hypotension. Patient was seen by GI and recommend no further intervention at this time. Patient had episode of A. fib on admission for less than 24 hours and cardiology recommend to continue on Lopressor, no anticoagulation needed. Hemoglobin is improving. Patient came from assisted living facility. Patient need Covid test before discharge. ISAAC is improving. Creatinine this morning was 1.7. Nephrology is following. OT evaluated and recommend subacute rehab, PT evaluation is pending. 06/13: Replace K and Mag, continue to monitor renal fuction, Continue abx per ID, c.diff negative. patient still with Rectal tube and Torres but will re- evaluate for possible discontinuation. Questran started by GI. Will continue to monitor and replace electrolytes Discussed with nursing staff to change torres to condom catheter CM to try and ascertain patients functional status prior to hospitalization 06/14: Patient showing some clinical improvement Torres replaced due to urinary retention about 1000 cc of clear urine removed. Flomax started. PT OT consulted as patient is noted to have been ambulatory prior to this admission will likely need SNF placement. Diarrhea consistency is improving anticipate discharge in 24 to 48 hours once approval is obtained. Cardiology input is noted Lopressor 25 mg p.o. twice daily possible addition of SABIHA inhibitor or ARB when okay with nephrology as regular this is a is improving. At this time no AC for A. fib management due to anemia and the transient nature of the A. fib which was less than 24 hours. 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 Unknown etiology or chronicity of these diagnoses. No current clinical evidence of acutely decompensated HF. Per [facility] records, pt saw [facility]ology in 1998 and underwent LHC which did not show any significant findings. Continue with conservative cardiac management given pt's advanced age, dementia and multiple co-morbidities. Recommend pt follow up in our office with Dr. Rosa within 2 weeks of discharge ([phone]). History Interval history: Patient seen and examined, much more awake today still with diarrhea but improving. Discussed with nursing staff patient with urinary retention since Torres was removed has had less than 30 cc of urine. Patient advised about need for Torres replacement. Hospitalist Physical - Physical exam Narrative exam: Not in cardiopulmonary distress. The patient appeared well nourished and normally developed. Vital signs as documented. Head exam is unremarkable. No scleral icterus . Neck is without jugular venous distension, thyromegaly, or carotid bruits. Lungs are clear to auscultation. Cardiac exam reveals regular rate and Rhythm. Abdominal exam reveals normal bowel sounds, nontender, no organomegaly. Rectal tube in place. Extremities are with plus 1 pitting edeam in upper and lower ext and both femoral and pedal pulses are normal. 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, severely demented - Constitutional Vitals: Temp Pulse Resp BP Pulse Ox 97.5 F L 86 17 136/51 98 06/14/20 07:38 06/14/20 10:36 06/14/20 10:00 06/14/20 10:36 06/14/20 10:00 General appearance: Present: no acute distress, well-nourished HEART Score - HEART Score Troponin: Troponin T 0.170 ng/mL (0.00-0.029) H* D 06/11/20 05:30 Results - Labs CBC & Chem 7: 06/14/20 05:23 06/14/20 05:23 Labs: Laboratory Last Values WBC 11.9 K/mm3 (4.5-11.0) H 06/14/20 05:23 RBC 2.30 M/mm3 (3.65-5.03) L 06/14/20 05:23 Hgb 7.1 gm/dl (11.8-15.2) L 06/14/20 05:23 Hct 22.6 % (35.5-45.6) L 06/14/20 05:23 MCV 98 fl (84-94) H 06/14/20 05:23 MCH 31 pg (28-32) 06/14/20 05:23 MCHC 32 % (32-34) 06/14/20 05:23 RDW 14.6 % (13.2-15.2) 06/14/20 05:23 Plt Count 172 K/mm3 (140-440) 06/14/20 05:23 Lymph % (Auto) 6.8 % (13.4-35.0) L 06/13/20 06:13 [place] % (Auto) 5.0 % (0.0-7.3) 06/13/20 06:13 Eos % (Auto) 1.7 % (0.0-4.3) 06/13/20 06:13 Baso % (Auto) 0.2 % (0.0-1.8) 06/13/20 06:13 Lymph # (Auto) 0.9 K/mm3 (1.2-5.4) L 06/13/20 06:13 [place] # (Auto) 0.7 K/mm3 (0.0-0.8) 06/13/20 06:13 Eos # (Auto) 0.2 K/mm3 (0.0-0.4) 06/13/20 06:13 Baso # (Auto) 0.0 K/mm3 (0.0-0.1) 06/13/20 06:13 Add Manual Diff Complete 06/12/20 05:24 Total Counted 100 06/12/20 05:24 Seg Neutrophils % 86.3 % (40.0-70.0) H 06/13/20 06:13 Seg Neuts % (Manual) 82.0 % (40.0-70.0) H 06/12/20 05:24 Band Neutrophils % 3.0 % 06/12/20 05:24 Lymphocytes % (Manual) 10.0 % (13.4-35.0) L 06/12/20 05:24 Reactive Lymphs % (Man) 1.0 % 06/12/20 05:24 Monocytes % (Manual) 2.0 % (0.0-7.3) 06/12/20 05:24 Eosinophils % (Manual) 2.0 % (0.0-4.3) 06/12/20 05:24 Nucleated RBC % Not Reportable 06/12/20 05:24 Seg Neutrophils # 11.9 K/mm3 (1.8-7.7) H 06/13/20 06:13 Seg Neutrophils # Man 11.2 K/mm3 (1.8-7.7) H 06/12/20 05:24 Band Neutrophils # 0.4 K/mm3 06/12/20 05:24 Lymphocytes # (Manual) 1.4 K/mm3 (1.2-5.4) 06/12/20 05:24 Abs React Lymphs (Man) 0.1 K/mm3 06/12/20 05:24 Monocytes # (Manual) 0.3 K/mm3 (0.0-0.8) 06/12/20 05:24 Eosinophils # (Manual) 0.3 K/mm3 (0.0-0.4) 06/12/20 05:24 Basophils # (Manual) 0.0 K/mm3 (0.0-0.1) 06/12/20 05:24 Metamyelocytes # 0.0 K/mm3 06/12/20 05:24 Myelocytes # 0.0 K/mm3 06/12/20 05:24 Promyelocytes # 0.0 K/mm3 06/12/20 05:24 Blast Cells # 0.0 K/mm3 06/12/20 05:24 WBC Morphology Not Reportable 06/12/20 05:24 Hypersegmented Neuts Not Reportable 06/12/20 05:24 Hyposegmented Neuts Not Reportable 06/12/20 05:24 Hypogranular Neuts Not Reportable 06/12/20 05:24 Smudge Cells Not Reportable 06/12/20 05:24 Toxic Granulation Not Reportable 06/12/20 05:24 Toxic Vacuolation Not Reportable 06/12/20 05:24 Dohle Bodies Not Reportable 06/12/20 05:24 Pelger-Huet Anomaly Not Reportable 06/12/20 05:24 Denys Rods Not Reportable 06/12/20 05:24 Platelet Estimate Consistent w auto 06/12/20 05:24 Clumped Platelets Not Reportable 06/12/20 05:24 Plt Clumps, EDTA Not Reportable 06/12/20 05:24 Large Platelets Not Reportable 06/12/20 05:24 Giant Platelets Not Reportable 06/12/20 05:24 Platelet Satelliting Not Reportable 06/12/20 05:24 Plt Morphology Comment Not Reportable 06/12/20 05:24 RBC Morphology Not Reportable 06/12/20 05:24 Dimorphic RBCs Not Reportable 06/12/20 05:24 Polychromasia Not Reportable 06/12/20 05:24 Hypochromasia Not Reportable 06/12/20 05:24 Poikilocytosis Not Reportable 06/12/20 05:24 Anisocytosis 1+ 06/12/20 05:24 Microcytosis Not Reportable 06/12/20 05:24 Macrocytosis 1+ 06/12/20 05:24 Spherocytes Not Reportable 06/12/20 05:24 Pappenheimer Bodies Not Reportable 06/12/20 05:24 Sickle Cells Not Reportable 06/12/20 05:24 Target Cells Not Reportable 06/12/20 05:24 Tear Drop Cells Not Reportable 06/12/20 05:24 Ovalocytes Not Reportable 06/12/20 05:24 Helmet Cells Not Reportable 06/12/20 05:24 [place] Bodies Not Reportable 06/12/20 05:24 [place] Rings Not Reportable 06/12/20 05:24 Robbins Cells Not Reportable 06/12/20 05:24 Bite Cells Not Reportable 06/12/20 05:24 Crenated Cell Not Reportable 06/12/20 05:24 Elliptocytes Not Reportable 06/12/20 05:24 Acanthocytes (Spur) Not Reportable 06/12/20 05:24 Rouleaux Not Reportable 06/12/20 05:24 Hemoglobin C Crystals Not Reportable 06/12/20 05:24 Schistocytes Not Reportable 06/12/20 05:24 Malaria parasites Not Reportable 06/12/20 05:24 Chance Bodies Not Reportable 06/12/20 05:24 Hem Pathologist Commnt No 06/12/20 05:24 PT 16.3 Sec. (12.2-14.9) H 06/06/20 10:19 INR 1.33 (0.87-1.13) H 06/06/20 10:19 APTT 31.6 Sec. (24.2-36.6) 06/06/20 10:19 ABG pH 7.329 pH Units (7.350-7.450) L 06/06/20 11:18 ABG pCO2 27.8 mm Hg 06/06/20 11:18 ABG pO2 258.1 mm Hg (80.0-90.0) H 06/06/20 11:18 ABG HCO3 14.3 mmol/L (20.0-26.0) L 06/06/20 11:18 ABG O2 Saturation 99.4 % (95.0-99.0) H 06/06/20 11:18 ABG O2 Content 13.2 (0.0-44) 06/06/20 11:18 ABG Base Excess -10.5 mmol/L (-2.0-3.0) L 06/06/20 11:18 ABG Hemoglobin 9.1 gm/dl (14.0-18.0) L 06/06/20 11:18 ABG Carboxyhemoglobin 1.3 % (0.0-5.0) 06/06/20 11:18 ABG Methemoglobin Not Reportable 06/06/20 11:18 VBG pH 7.438 (7.320-7.420) H 06/06/20 10:19 Oxyhemoglobin 98.2 % (95.0-99.0) 06/06/20 11:18 FiO2 21 % 06/06/20 11:18 Sodium 145 mmol/L (137-145) 06/14/20 05:23 Potassium 3.7 mmol/L (3.6-5.0) D 06/14/20 05:23 Chloride 113.6 mmol/L (98-107) H 06/14/20 05:23 Carbon Dioxide 22 mmol/L (22-30) 06/14/20 05:23 Anion Gap 13 mmol/L 06/14/20 05:23 BUN 31 mg/dL (9-20) H 06/14/20 05:23 Creatinine 1.3 mg/dL (0.8-1.3) 06/14/20 05:23 Estimated GFR > 60 ml/min 06/14/20 05:23 BUN/Creatinine Ratio 24 % 06/14/20 05:23 Glucose 101 mg/dL (75-100) H 06/14/20 05:23 POC Glucose 90 mg/dL (70-105) 06/14/20 11:11 Lactic Acid 1.50 mmol/L (0.7-2.0) 06/08/20 05:15 Calcium 7.2 mg/dL (8.4-10.2) L 06/14/20 05:23 Phosphorus 2.60 mg/dL (2.5-4.5) D 06/13/20 06:13 Magnesium 1.50 mg/dL (1.7-2.3) L 06/13/20 06:13 Iron 54 ug/dL (49-181) 06/10/20 10:44 TIBC 157 mcg/dL (250-450) L 06/10/20 10:44 Ferritin 569.5 ng/mL (30.0-300.0) H 06/10/20 10:44 Total Bilirubin 0.20 mg/dL (0.1-1.2) 06/14/20 05:23 AST 19 units/L (5-40) 06/14/20 05:23 ALT 20 units/L (7-56) 06/14/20 05:23 Alkaline Phosphatase 55 units/L (35-129) 06/14/20 05:23 Ammonia 64.0 umol/L (25-60) H 06/06/20 10:19 Total Creatine Kinase 1212 units/L (55-170) H 06/09/20 12:57 CK-MB (CK-2) 12.1 ng/mL (0.0-4.0) H 06/09/20 12:57 CK-MB (CK-2) Rel Index 0.9 (0-4) 06/09/20 12:57 Troponin T 0.170 ng/mL (0.00-0.029) H* D 06/11/20 05:30 Total Protein 4.9 g/dL (6.3-8.2) L 06/14/20 05:23 Albumin 2.4 g/dL (3.9-5) L 06/14/20 05:23 Albumin/Globulin Ratio 1.0 % 06/14/20 05:23 Triglycerides 103 mg/dL (2-149) 06/06/20 10:19 Cholesterol 84 mg/dL (50-199) 06/06/20 10:19 LDL Cholesterol Direct 28 mg/dL (50-130) L 06/06/20 10:19 HDL Cholesterol 44 mg/dL (40-59) 06/06/20 10:19 Cholesterol/HDL Ratio 1.90 % 06/06/20 10:19 Vitamin B12 1170 pg/mL (211-911) H 06/10/20 14:49 TSH 4.440 mlU/mL (0.270-4.200) H 06/06/20 10:19 Free T4 1.55 ng/dL (0.76-1.46) H 06/06/20 10:19 PTH Intact 271.9 pg/mL (15-65) H 06/08/20 05:15 Urine Color Yellow (Yellow) 06/06/20 14:02 Urine Turbidity Cloudy (Clear) 06/06/20 14:02 Urine pH 6.0 (5.0-7.0) 06/06/20 14:02 Ur Specific [place] 1.013 (1.003-1.030) 06/06/20 14:02 Urine Protein 100 mg/dl mg/dL (Negative) 06/06/20 14:02 Urine Glucose (UA) Neg mg/dL (Negative) 06/06/20 14:02 Urine Ketones Neg mg/dL (Negative) 06/06/20 14:02 Urine Blood Sm (Negative) 06/06/20 14:02 Urine Nitrite Neg (Negative) 06/06/20 14:02 Urine Bilirubin Neg (Negative) 06/06/20 14:02 Urine Urobilinogen < 2.0 mg/dL (<2.0) 06/06/20 14:02 Ur Leukocyte Esterase Lg (Negative) 06/06/20 14:02 Urine WBC (Auto) > 182.0 /HPF (0.0-6.0) H 06/06/20 14:02 Urine RBC (Auto) 55.0 /HPF (0.0-6.0) 06/06/20 14:02 U Epithel Cells (Auto) 1.0 /HPF (0-13.0) 06/06/20 14:02 Urine WBC Clumps 2+ /HPF 06/06/20 14:02 Urine Creatinine 57.0 mg/dL (0.1-20.0) H 06/06/20 21:05 Urine Sodium 85 mmol/L 06/06/20 21:05 Random Vancomycin 9.8 ug/mL (0-40.0) 06/09/20 04:30 Urine Opiates Screen Presumptive negative 06/06/20 14:02 Urine Methadone Screen Presumptive negative 06/06/20 14:02 Ur Barbiturates Screen Presumptive negative 06/06/20 14:02 Ur Phencyclidine Scrn Presumptive negative 06/06/20 14:02 Ur Amphetamines Screen Presumptive negative 06/06/20 14:02 U Benzodiazepines Scrn Presumptive negative 06/06/20 14:02 Urine Cocaine Screen Presumptive negative 06/06/20 14:02 U Marijuana (THC) Screen Presumptive negative 06/06/20 14:02 Drugs of Abuse Note Disclamer 06/06/20 14:02 Plasma/Serum Alcohol < 0.01 % (0-0.07) 06/06/20 10:19 C. difficile Tox (PCR) Negative (Negative) 06/08/20 Unknown Coronavirus (PCR) Negative (Negative) 06/07/20 09:15 Blood Type O POSITIVE 06/06/20 14:47 Antibody Screen Negative 06/06/20 14:47 Microbiology: Microbiology 06/08/20 10:11 Peripheral/Venous Blood Culture - Final NO GROWTH AFTER 5 DAYS 06/08/20 10:11 Peripheral/Venous Blood Culture - Final NO GROWTH AFTER 5 DAYS Torres/IV: Voiding Method Indwelling Catheter Active Medications - Current Medications Current Medications: Generic Name Dose Route Start Last Admin Trade Name Freq PRN Reason Stop Dose Admin Acetaminophen 650 mg 06/06/20 15:00 06/11/20 21:52 Acetaminophen 325 Mg Tab PO 650 mg Q6H PRN Administration Pain, Mild (1-3) Albuterol 2.5 mg 06/06/20 15:00 Albuterol 2.5 Mg/3 Ml Nebu IH Q3HRT PRN Shortness Of Breath Allopurinol 100 mg 06/07/20 10:00 06/14/20 10:35 Allopurinol 100 Mg Tab PO 100 mg QDAY YELENA Administration Calcium Carbonate/Glycine 500 mg 06/07/20 10:00 06/14/20 10:35 Calcium Carbonate 500 Mg Tab Chew PO 500 mg QDAY YELENA Administration Cholecalciferol 2,000 unit 06/07/20 10:00 06/14/20 10:35 Cholecalciferol (Vit D3) 1000 Unit (25 Mcg) Tab PO 2,000 unit QDAY YELENA Administration Cholestyramine Resin 4 gm 06/12/20 22:00 06/14/20 10:35 Cholestyramine (With Sugar) 4 Gm Packet PO 4 gm BID YELENA Administration Diclofenac Sodium 20 applic 06/07/20 10:00 06/14/20 10:38 Diclofenac Sodium 1% Topical Gel 100 Gm TP 20 applic QDAY YELENA Administration Dicyclomine HCl 10 mg 06/06/20 20:00 06/14/20 09:36 Dicyclomine 10 Mg Cap PO 10 mg TID YELENA Administration Famotidine 20 mg 06/13/20 10:00 06/14/20 10:36 Famotidine 20 Mg Tab PO 20 mg QDAY YELENA Administration Heparin Sodium (Porcine) 5,000 unit 06/07/20 22:00 06/14/20 10:36 Heparin 5,000 Unit/1 Ml Vial SUB-Q 5,000 unit Q12HR YELENA Administration Dextrose 1,000 mls @ 50 mls/hr 06/11/20 15:00 06/14/20 04:52 D5w IV 50 mls/hr DIRECT YELENA Administration Magnesium Citrate 300 ml 06/06/20 16:20 Magnesium Citrate 300 Ml Oral Liqd PO QDAY PRN Constipation Metoprolol Tartrate 25 mg 06/09/20 22:00 06/14/20 10:36 Metoprolol Tartrate 25 Mg Tab PO 25 mg BID YELENA Administration Pravastatin Sodium 10 mg 06/06/20 22:00 06/13/20 21:27 Pravastatin 20 Mg Tab PO 10 mg QHS YELENA Administration Sodium Chloride 10 ml 06/06/20 15:00 06/14/20 10:37 Sodium Chloride 0.9% 10 Ml Flush Syringe IV 10 ml BID YELENA Administration Sodium Chloride 10 ml 06/06/20 15:00 Sodium Chloride 0.9% 10 Ml Flush Syringe IV PRN PRN LINE FLUSH Tamsulosin HCl 0.4 mg 06/14/20 11:00 06/14/20 10:59 Tamsulosin 0.4 Mg Cap PO 0.4 mg QDAY YELENA Administration Nutrition/Malnutrition Assess - Dietary Evaluation Nutrition/Malnutrition Findings: Nutrition Notes Start: 06/08/20 11:43 Freq: Status: Active Protocol: Document 06/13/20 14:44 CW (Rec: 06/13/20 14:57 CW [id number]) Nutrition Notes Initial or Follow up Reassessment Current Diagnosis Acute Kidney Injury,Diabetes, Hypertension Other Pertinent Diagnosis AMS, Dementia, UTI, metabolic encephalopathy, ?s/p CVA? Current Diet Mechanical soft diet + ONS BID Labs/Tests Na 146 BUN 38 Cr 1.4 K 3.0 Pertinent Medications D5 at 50 ml/hr K dur K3PO4 Height 5 ft 8 in Weight 77.1 kg [place] Body Weight (kg) 70.00 BMI 25.8 Weight Status Appropriate Subjective/Other Information F/U for intakes and ONS.Per tech pt refusing to eat solid foods but will drinK ONS. Will increase ONS.; Attempted to obtain preferences from pt but pt is pleasantly confused. Recommend appetite stimulant. Burn Absent Trauma Absent GI Symptoms Diarrhea Difficulty In Swallowing Skin Integrity/Comment Stage 1 pressure ulcer Current % PO Negligible Minimum of two criteria No Fluid Accumulation Mild (non-severe) #2 Nutrition Diagnosis Increased nutrient needs ( specify in comment below) Diagnosis Progress(for reassessment Continues documentation) #1 Nutrition Diagnosis Inadequate oral intake As Evidenced by Signs and Symptoms Pt not eating much of meals Diagnosis Progress(for reassessment Continues documentation) Is patient on ventilator? No Is Patient Ambulatory and/or Out of Bed Yes REE-([place]-[facility]. or-ambulatory/OOB) [ [id number] [id number]] Calculation Used for Recommendations [facility] Additional Notes protein needs: 62 - 153g (0.8 - 1.2g/kgBW for ISAAC) fluid needs: 1 ml/kcal Nutrition Intervention Change Diet Order: Continue Mechanical Soft Diet, ONS Add Supplement/Snack (indicate name/kcal Nepro TID /protein ) Provides kCal: 1,275 Provides Protein (gm) 57 Goal #1 Meet at least 75% of kcal and proteins via PO Goal #2 wound healing Anticipated Discharge Needs: Mechanical Soft diet + ONS PRN Follow-Up By: 04/15/21 Additional Comments F/U intakes and ONS tolerance
--- NOTE | 2020-06-14 13:40 | Progress Note ---
Assessment and Plan Cultures: Blood culture 06/06/2020 coagulase-negative staph 1 out of 4 Blood culture 06/08/2020 no growth today C. difficile PCR negative SARS-CoV-2 PCR negative Urine culture 06/07/2020 no growth Assessment: 80 years old male with history of dementia, CVA, debility, diabetes mellitus, secondary to few hours of unresponsiveness at breakfast at his assisted living facility: #Sepsis with septic shock: Resolved, remarkable improvement, off pressors; source UTI +/- colitis. Completed cefepime 5 days #Extensive colitis: remains with large foul smelling diarrhea. seen on CT ? ischemia. C diff neg #Coagulase-negative staph bacteremia: 1 out of 4 likely contaminant. #Acute hypoxemic respiratory failure: now on NC O2. CXR clear. SARS-CoV-2 PCR negative. #UTI: with hematuria, urine culture no growth #Acute encephalopathy: due to sepsis> CT no acute changes. Resolved. #ISAAC: ? from sepsis, better #RVR A. fib: On amiodarone, cardiology on board #Thrombocytopenia: Monitor platelets, likely due to sepsis, resolved. Recommendations: -Avoid laxative -remove torres as feasible -monitor leukocytosis Narayan Rowley MD [facility] ([facility] O: [phone] F: [phone] Subjective Date of service: 06/14/20 Principal diagnosis: shock Interval history: Afebrile, improving white count now 11.9. Objective - Exam Narrative Exam: General appearance: Alert in NAD on NC O2 Eyes: anicteric sclerae, moist conjunctivae; no lid-lag; PERRLA HENT: Normocephalic, Atraumatic; normal external ears, nares open, oropharynx limited edentulous Neck: supple, tracheal midline, no JVD Lungs: Clear to auscultation bilaterally CV: RRR no murmur Abdomen: Soft, nontender, ventral hernia Extremities: no edema, no cyanosis Skin: No rash. Psych: no agitated Neuro: Alert, follows simple commands - Constitutional Vitals: Vital Signs Temp Pulse Resp BP Pulse Ox 97.8 F 83 18 123/57 98 06/14/20 12:07 06/14/20 12:07 06/14/20 12:06/14/20 12:07 06/14/20 12:07 Temperature -Last 24 Hours Temperature 97.8 F Temperature 97.5 F Temperature 99.0 F Temperature 98.3 F Temperature 98.6 F Temperature 99.8 F - Labs CBC & Chem 7: 06/14/20 05:23 06/14/20 05:23 Labs: Abnormal lab results 06/13/20 06/13/20 06/13/20 Range/Units 11:35 16:42 21:25 WBC (4.5-11.0) K/mm3 RBC (3.65-5.03) M/mm3 Hgb (11.8-15.2) gm/dl Hct (35.5-45.6) % MCV (84-94) fl Chloride (98-107) mmol/L BUN (9-20) mg/dL Glucose (75-100) mg/dL POC Glucose 109 H 132 H 127 H (70-105) mg/dL Calcium (8.4-10.2) mg/dL Total Protein (6.3-8.2) g/dL Albumin (3.9-5) g/dL 06/14/20 06/14/20 Range/Units 05:23 05:23 WBC 11.9 H (4.5-11.0) K/mm3 RBC 2.30 L (3.65-5.03) M/mm3 Hgb 7.1 L (11.8-15.2) gm/dl Hct 22.6 L (35.5-45.6) % MCV 98 H (84-94) fl Chloride 113.6 H (98-107) mmol/L BUN 31 H (9-20) mg/dL Glucose 101 H (75-100) mg/dL POC Glucose (70-105) mg/dL Calcium 7.2 L (8.4-10.2) mg/dL Total Protein 4.9 L (6.3-8.2) g/dL Albumin 2.4 L (3.9-5) g/dL
--- NOTE | 2020-06-14 14:59 | Electrocardiograph Report ---
[facility] Test Date: 2020-06-09 Test Time: 09:52:52 Pat Name: TROY THAKKAR Department: Room: A484 1 Gender: M Applied Exercise Physiologist: RESP : 1940 Requested By: AICHA LA Order Number: [id number] Reading MD: Caitlin Helton Measurements Intervals [place] Rate: 88 P: 0 NH: 77 QRS: 35 QRSD: 140 T: 243 QT: 420 QTc: 509 Interpretive Statements Sinus rhythm Atrial premature complex Left bundle branch block Prolonged QT interval Compared to ECG 06/08/2020 11:20:49 Atrial premature complex(es) now present Prolonged QT interval now present Junctional tachycardia no longer present Electronically Signed On 06-14-2020 14:59:38 EDT by Caitlin Helton
[2020-06-14] MEDS: PRAVASTATIN 20 MG TAB PO SCH (23:01)
[2020-06-15 06:53] LABS: Hematocrit 21.5 % (35.5-45.6); Hemoglobin 6.9 gm/dl (11.8-15.2); Mean Corpuscular HGB Conc 32 % (32-34); Mean Corpuscular Volume 97 fl (84-94); Platelet Count 192 K/mm3 (140-440); Red Blood Count 2.23 M/mm3 (3.65-5.03); Red Cell Distribution Width 14.2 % (13.2-15.2)
[2020-06-15 07:10] LABS: BUN/Creatinine Ratio 22; Blood Urea Nitrogen 26 mg/dL (9-20); Calcium 7.5 mg/dL (8.4-10.2); Hemolysis Index 4
[2020-06-15] MEDS ORDERED: SODIUM CHLORIDE 0.9% 500 ML 500 ML IV SCH (09:00)
[2020-06-15] MEDS: DICYCLOMINE 10 MG CAP PO SCH ×3 (09:55→21:54)
[2020-06-15] MEDS: TAMSULOSIN 0.4 MG CAP PO SCH (09:56)
[2020-06-15] MEDS: FAMOTIDINE 20 MG TAB PO SCH (09:56)
[2020-06-15] MEDS: allopurinoL 100 MG TAB PO SCH (09:56)
[2020-06-15] MEDS: CHOLECALCIFEROL (VIT D3) 1000 UNIT (25 mcg) TAB PO SCH (09:56)
[2020-06-15] MEDS: CALCIUM CARBONATE 500 MG TAB CHEW PO SCH (09:56)
[2020-06-15] MEDS: CHOLESTYRAMINE (WITH SUGAR) 4 GM PACKET PO SCH ×2 (09:56→21:54)
[2020-06-15] MEDS: METOPROLOL TARTRATE 25 MG TAB PO SCH ×2 (09:57→21:51)
[2020-06-15] MEDS ORDERED: POTASSIUM PHOSPHATE 30 MMOL in SODIUM CHLORIDE 0.9% 500 ML 500 ML IV ONE (10:00)
[2020-06-15] MEDS ORDERED: MAGNESIUM SULFATE 4 GM/100 ML BAG IV ONE (10:00)
--- NOTE | 2020-06-15 10:02 | Progress Note ---
Assessment and Plan 1. Acute kidney injury: Vasomotor ISAAC in the setting of shock. Renal US ordered negative for hydro. Baseline renal function is unknown. Monitor renal function. Creatinine level is improving. Avoid nephrotoxic agents. Meds dosage based on GFR. 2. FEN: Hypernatremia, improved. Hypokalemia, replete K, monitor. Anion-gap metabolic acidosis, improved, monitor. Replete Mg and Phos. Monitor lytes and volume status. 3. Sepsis with shock: Currently off pressors. Monitor BP. 4. UTI: Abx per ID. 5. Acute hypoxemic respiratory failure: CXR clear. COVID test negative. NC O2 as needed. 6. Diarrhea: ?Colitis. C.diff negative. 7. R kidney mass: Further testing depends on clinical course. 8. Metabolic encephalopathy: Monitor. 9. H/o Dementia: Supportive care. 10. H/o HTN: Monitor BP. 11. Anemia, POA: Monitor. Subjective: Patient was seen and examined at the bedside. No new complaint. Objective: General appearance: well-developed, appears stated age, not in distress HEENT: ATNC Neck: trachea midline Respiratory: ctab Heart: regular, S1S2, no murmur Gastrointestinal: soft, normoactive bowel sounds, not tender Integumentary: no rash, warm and dry Ext: no edema Neurologic: alert, not following any command, confused Ext: trace edema : torres catheter Subjective Date of service: 06/15/20 Principal diagnosis: shock Objective - Vital Signs Vital signs: Vital Signs - 12hr 06/14/20 06/14/20 06/15/20 23:02 23:04 03:40 Temperature 99.1 F 99.1 F Pulse Rate 77 76 77 Respiratory 16 18 Rate Blood Pressure 126/50 126/50 139/50 O2 Sat by Pulse 97 95 Oximetry 06/15/20 06/15/20 07:49 09:57 Temperature 97.6 F Pulse Rate 77 77 Respiratory 18 Rate Blood Pressure 128/52 128/52 O2 Sat by Pulse 97 Oximetry - Lab 06/15/20 06:31 06/15/20 06:31 Most recent lab results ABG pH 7.329 pH Units (7.350-7.450) L 06/06/20 11:18 ABG pCO2 27.8 mm Hg 06/06/20 11:18 ABG pO2 258.1 mm Hg (80.0-90.0) H 06/06/20 11:18 ABG HCO3 14.3 mmol/L (20.0-26.0) L 06/06/20 11:18 ABG O2 Saturation 99.4 % (95.0-99.0) H 06/06/20 11:18 Calcium 7.5 mg/dL (8.4-10.2) L 06/15/20 06:31 Phosphorus 1.70 mg/dL (2.5-4.5) L 06/15/20 06:31 Magnesium 1.30 mg/dL (1.7-2.3) L 06/15/20 06:31 Urine Creatinine 57.0 mg/dL (0.1-20.0) H 06/06/20 21:05 Urine Sodium 85 mmol/L 06/06/20 21:05 Medications & Allergies - Medications Allergies/Adverse Reactions: Allergies No Known Allergies Allergy (Verified 06/06/20 15:21) Home Medications: Home Medications Medication Instructions Recorded Confirmed Last Taken Type Amlodipine Besylate [Norvasc] 5 mg PO QDAY 06/06/20 06/06/20 Unknown History Bisacodyl [Women's Gentle Laxative] 5 mg PO BID 06/06/20 06/06/20 Unknown History Calcium Carb/Magnesium Hydrox 500 mg PO QDAY 06/06/20 06/06/20 Unknown History [Antacid 1000-200 mg Tab Chew] Cholecalciferol (Vitamin D3) 2,000 unit PO QDAY 06/06/20 06/06/20 Unknown History [Vitamin D3 2,000 UNIT CAP] Dextrose/Dextrin/Maltose 24 gm PO ONCE 06/06/20 06/06/20 Unknown History [Insta-Glucose Gel] Diclofenac 1% [Diclofenac 1% 100 gm TP QDAY 06/06/20 06/06/20 Unknown History topical gel] Dicyclomine [Bentyl] 10 mg PO TID 06/06/20 06/06/20 Unknown History Docusate Sodium [Colace] 100 mg PO BID PRN 06/06/20 06/06/20 Unknown History Furosemide [Lasix] 40 mg PO QDAY 06/06/20 06/06/20 Unknown History Insulin Lispro [Insulin Lispro 10 unit SQ TID 06/06/20 06/06/20 Unknown History Kwikpen U-100] Magnesium Citrate [Citroma] 296 ml PO QDAY 06/06/20 06/06/20 Unknown History Melatonin [Melatonin 3MG TAB] 6 mg PO QHS 06/06/20 06/06/20 Unknown History Oxycodone HCl/Acetaminophen 1 each PO QDAY 06/06/20 06/06/20 Unknown History [Oxycodone-Acetaminophen 10-325] Pantoprazole [Protonix] 40 mg PO QDAY 06/06/20 06/06/20 Unknown History Pioglitazone HCl [Actos] 30 mg PO QDAY 06/06/20 06/06/20 Unknown History Polyethylene Glycol 3350 [Gavilax] 10 gm PO QDAY 06/06/20 06/06/20 Unknown History Pravastatin Sodium [Pravastatin] 10 mg PO QHS 06/06/20 06/06/20 Unknown History Tamsulosin [Flomax] 0.4 mg PO QDAY 06/06/20 06/06/20 Unknown History allopurinoL [Zyloprim] 100 mg PO QDAY 06/06/20 06/06/20 Unknown History lisinopriL [Lisinopril] 20 mg PO QDAY 06/06/20 06/06/20 Unknown History Active Medications: Generic Name Dose Route Start Last Admin Trade Name Freq PRN Reason Stop Dose Admin Acetaminophen 650 mg 06/06/20 15:00 06/11/20 21:52 Acetaminophen 325 Mg Tab PO 650 mg Q6H PRN Administration Pain, Mild (1-3) Albuterol 2.5 mg 06/06/20 15:00 Albuterol 2.5 Mg/3 Ml Nebu IH Q3HRT PRN Shortness Of Breath Allopurinol 100 mg 06/07/20 10:00 06/15/20 09:56 Allopurinol 100 Mg Tab PO 100 mg QDAY YELENA Administration Calcium Carbonate/Glycine 500 mg 06/07/20 10:00 06/15/20 09:56 Calcium Carbonate 500 Mg Tab Chew PO 500 mg QDAY YELENA Administration Cholecalciferol 2,000 unit 06/07/20 10:00 06/15/20 09:56 Cholecalciferol (Vit D3) 1000 Unit (25 Mcg) Tab PO 2,000 unit QDAY YELENA Administration Cholestyramine Resin 4 gm 06/12/20 22:00 06/15/20 09:56 Cholestyramine (With Sugar) 4 Gm Packet PO 4 gm BID YELENA Administration Dicyclomine HCl 10 mg 06/06/20 20:00 06/15/20 09:55 Dicyclomine 10 Mg Cap PO 10 mg TID YELENA Administration Famotidine 20 mg 06/13/20 10:00 06/15/20 09:56 Famotidine 20 Mg Tab PO 20 mg QDAY YELENA Administration Potassium Phosphate 30 mmol/ 510 mls @ 85 mls/hr 06/15/20 10:00 Sodium Chloride IV 06/15/20 15:59 ONCE ONE Magnesium Sulfate 4 gm in 100 mls @ 25 mls/hr 06/15/20 10:00 Magnesium Sulfate 4gm/100ml IV 06/15/20 13:59 ONCE ONE Sodium Chloride 500 mls @ 0 mls/hr 06/15/20 09:00 Nacl 0.9% 500 Ml IV 06/15/20 19:00 ONCE YELENA As Directed Magnesium Citrate 300 ml 06/06/20 16:20 Magnesium Citrate 300 Ml Oral Liqd PO QDAY PRN Constipation Metoprolol Tartrate 25 mg 06/09/20 22:00 06/15/20 09:57 Metoprolol Tartrate 25 Mg Tab PO 25 mg BID YELENA Administration Pravastatin Sodium 10 mg 06/06/20 22:00 06/14/20 23:01 Pravastatin 20 Mg Tab PO 10 mg QHS YELENA Administration Sodium Chloride 10 ml 06/06/20 15:00 06/14/20 23:02 Sodium Chloride 0.9% 10 Ml Flush Syringe IV 10 ml BID YELENA Administration Sodium Chloride 10 ml 06/06/20 15:00 Sodium Chloride 0.9% 10 Ml Flush Syringe IV PRN PRN LINE FLUSH Tamsulosin HCl 0.4 mg 06/14/20 11:00 06/15/20 09:56 Tamsulosin 0.4 Mg Cap PO 0.4 mg QDAY YELENA Administration
--- NOTE | 2020-06-15 12:37 | Progress Note ---
Assessment and Plan Assessment and plan: This is a 80-year-old male who is a resident of assisted living facility with vascular dementia, cerebral sclerosis, debility, diabetes mellitus who presents to the emergency department on 06/06 with complaints of lethargy and diminished cognition as per daughter he developed an episode of unresponsiveness while at breakfast at at his assisted living facility. Patient was found to have a urinary tract infection complicated by sepsis and septic shock, acute kidney injury, toxic metabolic encephalopathy as well as metabolic acidosis. Patient was hypotensive with systolic blood pressures in the 50s and was initiated on vasopressor support in the emergency department. Patient was admitted to the hospital service with consults to nephrology and [facility]. Septic Shock Metabolic encephalopathy Coag negative Staphylococcus 03/07 bottles Urinary tract infection Possible ISCHEMIC COLITIS Acute hypoxic respiratory failure Acute kidney injury Metabolic acidosis Diarrhea Dementia Hypertension Anemia 06/07: Patient remains on dopamine, vasopressin and Levophed. Nephrology has started the patient on sodium bicarbonate drip for metabolic acidosis. Infectious disease initiated vancomycin in addition to the cefepime and ordered a C. difficile. 06/08: Patient has gram-positive cocci bacteremia in 03/07 bottles which grew to be coag negative staph coccus and he has repeat blood cultures in progress. Urine culture has no growth to date and he is on IV vancomycin and cefepime. Yesterday we ordered a C. difficile PCR which is pending. Patient had a moment of tachycardia into the 130s and a stat EKG was obtained. Patient was given amiodarone bolus by [facility] and cardiology was consulted. Patient is hyperchloremic today however his metabolic acidosis and BUN/creatinine is slightly improved to 93/3.2 from 100/3.6 and his repeat lactic acid is 1.5. At the time my examination patient was on Levophed at 6, vasopressin 0.03 and dopamine at 6. This morning patient failed his swallow eval and ST evaluation was ordered. Of note patient's echocardiogram shows reduced 15 to 20% with borderline left ventricular hypertrophy. 06/09: This morning his speech evaluation was completed and he has been cleared for mechanical soft diet with thin liquids. Patient complained of right-sided chest pain with radiation to shoulders and a stat EKG cardiac enzymes were ordered. Patient was recultured yesterday and those have no growth to date and his vancomycin was stopped. Infectious disease team recommends removal of Torres catheter when feasible and a CT abdomen/pelvis when stable. Patient has been cleared to transfer to the floor by cardiology and [facility]. 06/10/2020; patient is on IV cefepime for sepsis due to UTI day 3 out of 5. Vancomycin discontinued. Patient is complaining pleuritic chest pain. Patient was evaluated by cardiology for elevated troponin and episode of A. fib on admission. Cardiology discontinued amiodarone and put her on Lopressor. Cardiology recommend against anticoagulation because of patient's anemia. Hemoglobin this morning was 7.4 and anemia work-up is in progress. I did o rdered CT abdomen and pelvis. PT OT evaluation. Patient has ISAAC and nephrology is following. Patient has rectal tube and liquid stool in the bag. I ordered stool for C. difficile. We will continue to monitor. 06/11/2020; patient is on cefepime day 06/06. CT abdomen and pelvis was done and significant for colitis, ischemic colitis is possibility given hypotension and elevated lactic acid level. I will consult GI. Patient has episode of A. fib for less than 24 hours, cardiology was consulted and recommend to be on Lopressor. No need for coagulation because of his anemia. Hemoglobin this morning is improved to 8. Anemia work-up was done, no iron deficiency anemia identified. ISAAC is improving. C. difficile was negative. 06/12/2020; continue cefepime per ID recommendation. CT abdomen and pelvis is significant for ischemic colitis likely due to septic shock, hypotension. Patient was seen by GI and recommend no further intervention at this time. Patient had episode of A. fib on admission for less than 24 hours and cardiology recommend to continue on Lopressor, no anticoagulation needed. Hemoglobin is improving. Patient came from assisted living facility. Patient need Covid test before discharge. ISAAC is improving. Creatinine this morning was 1.7. Nephrology is following. OT evaluated and recommend subacute rehab, PT evaluation is pending. 06/13: Replace K and Mag, continue to monitor renal fuction, Continue abx per ID, c.diff negative. patient still with Rectal tube and Torres but will re- evaluate for possible discontinuation. Questran started by GI. Will continue to monitor and replace electrolytes Discussed with nursing staff to change torres to condom catheter CM to try and ascertain patients functional status prior to hospitalization 06/14: Patient showing some clinical improvement Torres replaced due to urinary retention about 1000 cc of clear urine removed. Flomax started. PT OT consulted as patient is noted to have been ambulatory prior to this admission will likely need SNF placement. Diarrhea consistency is improving anticipate discharge in 24 to 48 hours once approval is obtained. Cardiology input is noted Lopressor 25 mg p.o. twice daily possible addition of SABIHA inhibitor or ARB when okay with nephrology as regular this is a is improving. At this time no AC for A. fib management due to anemia and the transient nature of the A. fib which was less than 24 hours. 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 Unknown etiology or chronicity of these diagnoses. No current clinical evidence of acutely decompensated HF. Per [place] records, pt saw [facility] [facility] in 1998 and underwent LHC which did not show any significant findings. Continue with conservative cardiac management given pt's advanced age, dementia and multiple co-morbidities. Recommend pt follow up in our office with Dr. Rosa within 2 weeks of discharge ([phone]). 06/15: Continue supportive care. Will give a unit of PRBC and anticipate discharge today or tomorrow once approval from insurance company obtained. PATIENT will need urology follow up outpatient and also cardiology outpatient. Discussed with patient and Case management Continue PT OT History Interval history: Patient seen and examined, no new complaints but noted to have hemoglobin of 6.9 today no overt bleed noted Hospitalist Physical - Physical exam Narrative exam: Not in cardiopulmonary distress. The patient appeared well nourished and normally developed. Vital signs as documented. Head exam is unremarkable. No scleral icterus . Neck is without jugular venous distension, thyromegaly, or carotid bruits. Lungs are clear to auscultation. Cardiac exam reveals regular rate and Rhythm. Abdominal exam reveals normal bowel sounds, nontender, no organomegaly. Rectal tube in place. Extremities are with plus 1 pitting edeam in upper and lower ext and both femoral and pedal pulses are normal. FORENSICS TEAM DIRECTOR: Alert, cooperative, severely demented - Constitutional Vitals: Temp Pulse Resp BP Pulse Ox 97.6 F 71 18 128/52 97 06/15/20 07:49 06/15/20 10:00 06/15/20 10:00 06/15/20 09:57 06/15/20 10:00 General appearance: Present: no acute distress, well-nourished HEART Score - HEART Score Troponin: Troponin T 0.170 ng/mL (0.00-0.029) H* D 06/11/20 05:30 Results - Labs CBC & Chem 7: 06/15/20 06:31 06/15/20 06:31 Labs: Laboratory Last Values WBC 10.3 K/mm3 (4.5-11.0) 06/15/20 06:31 RBC 2.23 M/mm3 (3.65-5.03) L 06/15/20 06:31 Hgb 6.9 gm/dl (11.8-15.2) L 06/15/20 06:31 Hct 21.5 % (35.5-45.6) L 06/15/20 06:31 MCV 97 fl (84-94) H 06/15/20 06:31 MCH 31 pg (28-32) 06/15/20 06:31 MCHC 32 % (32-34) 06/15/20 06:31 RDW 14.2 % (13.2-15.2) 06/15/20 06:31 Plt Count 192 K/mm3 (140-440) 06/15/20 06:31 Lymph % (Auto) 6.8 % (13.4-35.0) L 06/13/20 06:13 Bowman % (Auto) 5.0 % (0.0-7.3) 06/13/20 06:13 Eos % (Auto) 1.7 % (0.0-4.3) 06/13/20 06:13 Baso % (Auto) 0.2 % (0.0-1.8) 06/13/20 06:13 Lymph # (Auto) 0.9 K/mm3 (1.2-5.4) L 06/13/20 06:13 Bowman # (Auto) 0.7 K/mm3 (0.0-0.8) 06/13/20 06:13 Eos # (Auto) 0.2 K/mm3 (0.0-0.4) 06/13/20 06:13 Baso # (Auto) 0.0 K/mm3 (0.0-0.1) 06/13/20 06:13 Add Manual Diff Complete 06/12/20 05:24 Total Counted 100 06/12/20 05:24 Seg Neutrophils % 86.3 % (40.0-70.0) H 06/13/20 06:13 Seg Neuts % (Manual) 82.0 % (40.0-70.0) H 06/12/20 05:24 Band Neutrophils % 3.0 % 06/12/20 05:24 Lymphocytes % (Manual) 10.0 % (13.4-35.0) L 06/12/20 05:24 Reactive Lymphs % (Man) 1.0 % 06/12/20 05:24 Monocytes % (Manual) 2.0 % (0.0-7.3) 06/12/20 05:24 Eosinophils % (Manual) 2.0 % (0.0-4.3) 06/12/20 05:24 Nucleated RBC % Not Reportable 06/12/20 05:24 Seg Neutrophils # 11.9 K/mm3 (1.8-7.7) H 06/13/20 06:13 Seg Neutrophils # Man 11.2 K/mm3 (1.8-7.7) H 06/12/20 05:24 Band Neutrophils # 0.4 K/mm3 06/12/20 05:24 Lymphocytes # (Manual) 1.4 K/mm3 (1.2-5.4) 06/12/20 05:24 Abs React Lymphs (Man) 0.1 K/mm3 06/12/20 05:24 Monocytes # (Manual) 0.3 K/mm3 (0.0-0.8) 06/12/20 05:24 Eosinophils # (Manual) 0.3 K/mm3 (0.0-0.4) 06/12/20 05:24 Basophils # (Manual) 0.0 K/mm3 (0.0-0.1) 06/12/20 05:24 Metamyelocytes # 0.0 K/mm3 06/12/20 05:24 Myelocytes # 0.0 K/mm3 06/12/20 05:24 Promyelocytes # 0.0 K/mm3 06/12/20 05:24 Blast Cells # 0.0 K/mm3 06/12/20 05:24 WBC Morphology Not Reportable 06/12/20 05:24 Hypersegmented Neuts Not Reportable 06/12/20 05:24 Hyposegmented Neuts Not Reportable 06/12/20 05:24 Hypogranular Neuts Not Reportable 06/12/20 05:24 Smudge Cells Not Reportable 06/12/20 05:24 Toxic Granulation Not Reportable 06/12/20 05:24 Toxic Vacuolation Not Reportable 06/12/20 05:24 Dohle Bodies Not Reportable 06/12/20 05:24 Pelger-Huet Anomaly Not Reportable 06/12/20 05:24 Denys Rods Not Reportable 06/12/20 05:24 Platelet Estimate Consistent w auto 06/12/20 05:24 Clumped Platelets Not Reportable 06/12/20 05:24 Plt Clumps, EDTA Not Reportable 06/12/20 05:24 Large Platelets Not Reportable 06/12/20 05:24 Giant Platelets Not Reportable 06/12/20 05:24 Platelet Satelliting Not Reportable 06/12/20 05:24 Plt Morphology Comment Not Reportable 06/12/20 05:24 RBC Morphology Not Reportable 06/12/20 05:24 Dimorphic RBCs Not Reportable 06/12/20 05:24 Polychromasia Not Reportable 06/12/20 05:24 Hypochromasia Not Reportable 06/12/20 05:24 Poikilocytosis Not Reportable 06/12/20 05:24 Anisocytosis 1+ 06/12/20 05:24 Microcytosis Not Reportable 06/12/20 05:24 Macrocytosis 1+ 06/12/20 05:24 Spherocytes Not Reportable 06/12/20 05:24 Pappenheimer Bodies Not Reportable 06/12/20 05:24 Sickle Cells Not Reportable 06/12/20 05:24 Target Cells Not Reportable 06/12/20 05:24 Tear Drop Cells Not Reportable 06/12/20 05:24 Ovalocytes Not Reportable 06/12/20 05:24 Helmet Cells Not Reportable 06/12/20 05:24 [place] Bodies Not Reportable 06/12/20 05:24 Vancourt Rings Not Reportable 06/12/20 05:24 Dom Cells Not Reportable 06/12/20 05:24 Bite Cells Not Reportable 06/12/20 05:24 Crenated Cell Not Reportable 06/12/20 05:24 Elliptocytes Not Reportable 06/12/20 05:24 Acanthocytes (Spur) Not Reportable 06/12/20 05:24 Rouleaux Not Reportable 06/12/20 05:24 Hemoglobin C Crystals Not Reportable 06/12/20 05:24 Schistocytes Not Reportable 06/12/20 05:24 Malaria parasites Not Reportable 06/12/20 05:24 Chance Bodies Not Reportable 06/12/20 05:24 Hem Pathologist Commnt No 06/12/20 05:24 PT 16.3 Sec. (12.2-14.9) H 06/06/20 10:19 INR 1.33 (0.87-1.13) H 06/06/20 10:19 APTT 31.6 Sec. (24.2-36.6) 06/06/20 10:19 ABG pH 7.329 pH Units (7.350-7.450) L 06/06/20 11:18 ABG pCO2 27.8 mm Hg 06/06/20 11:18 ABG pO2 258.1 mm Hg (80.0-90.0) H 06/06/20 11:18 ABG HCO3 14.3 mmol/L (20.0-26.0) L 06/06/20 11:18 ABG O2 Saturation 99.4 % (95.0-99.0) H 06/06/20 11:18 ABG O2 Content 13.2 (0.0-44) 06/06/20 11:18 ABG Base Excess -10.5 mmol/L (-2.0-3.0) L 06/06/20 11:18 ABG Hemoglobin 9.1 gm/dl (14.0-18.0) L 06/06/20 11:18 ABG Carboxyhemoglobin 1.3 % (0.0-5.0) 06/06/20 11:18 ABG Methemoglobin Not Reportable 06/06/20 11:18 VBG pH 7.438 (7.320-7.420) H 06/06/20 10:19 Oxyhemoglobin 98.2 % (95.0-99.0) 06/06/20 11:18 FiO2 21 % 06/06/20 11:18 Sodium 140 mmol/L (137-145) 06/15/20 06:31 Potassium 3.6 mmol/L (3.6-5.0) 06/15/20 06:31 Chloride 110.0 mmol/L (98-107) H 06/15/20 06:31 Carbon Dioxide 22 mmol/L (22-30) 06/15/20 06:31 Anion Gap 12 mmol/L 06/15/20 06:31 BUN 26 mg/dL (9-20) H 06/15/20 06:31 Creatinine 1.2 mg/dL (0.8-1.3) 06/15/20 06:31 Estimated GFR > 60 ml/min 06/15/20 06:31 BUN/Creatinine Ratio 22 % 06/15/20 06:31 Glucose 88 mg/dL (75-100) 06/15/20 06:31 POC Glucose 86 mg/dL (70-105) 06/15/20 07:47 Lactic Acid 1.50 mmol/L (0.7-2.0) 06/08/20 05:15 Calcium 7.5 mg/dL (8.4-10.2) L 06/15/20 06:31 Phosphorus 1.70 mg/dL (2.5-4.5) L 06/15/20 06:31 Magnesium 1.30 mg/dL (1.7-2.3) L 06/15/20 06:31 Iron 54 ug/dL (49-181) 06/10/20 10:44 TIBC 157 mcg/dL (250-450) L 06/10/20 10:44 Ferritin 569.5 ng/mL (30.0-300.0) H 06/10/20 10:44 Total Bilirubin 0.20 mg/dL (0.1-1.2) 06/14/20 05:23 AST 19 units/L (5-40) 06/14/20 05:23 ALT 20 units/L (7-56) 06/14/20 05:23 Alkaline Phosphatase 55 units/L (35-129) 06/14/20 05:23 Ammonia 64.0 umol/L (25-60) H 06/06/20 10:19 Total Creatine Kinase 1212 units/L (55-170) H 06/09/20 12:57 CK-MB (CK-2) 12.1 ng/mL (0.0-4.0) H 06/09/20 12:57 CK-MB (CK-2) Rel Index 0.9 (0-4) 06/09/20 12:57 Troponin T 0.170 ng/mL (0.00-0.029) H* D 06/11/20 05:30 Total Protein 4.9 g/dL (6.3-8.2) L 06/14/20 05:23 Albumin 2.4 g/dL (3.9-5) L 06/14/20 05:23 Albumin/Globulin Ratio 1.0 % 06/14/20 05:23 Triglycerides 103 mg/dL (2-149) 06/06/20 10:19 Cholesterol 84 mg/dL (50-199) 06/06/20 10:19 LDL Cholesterol Direct 28 mg/dL (50-130) L 06/06/20 10:19 HDL Cholesterol 44 mg/dL (40-59) 06/06/20 10:19 Cholesterol/HDL Ratio 1.90 % 06/06/20 10:19 Vitamin B12 1170 pg/mL (211-911) H 06/10/20 14:49 TSH 4.440 mlU/mL (0.270-4.200) H 06/06/20 10:19 Free T4 1.55 ng/dL (0.76-1.46) H 06/06/20 10:19 PTH Intact 271.9 pg/mL (15-65) H 06/08/20 05:15 Urine Color Yellow (Yellow) 06/06/20 14:02 Urine Turbidity Cloudy (Clear) 06/06/20 14:02 Urine pH 6.0 (5.0-7.0) 06/06/20 14:02 Ur Specific [place] 1.013 (1.003-1.030) 06/06/20 14:02 Urine Protein 100 mg/dl mg/dL (Negative) 06/06/20 14:02 Urine Glucose (UA) Neg mg/dL (Negative) 06/06/20 14:02 Urine Ketones Neg mg/dL (Negative) 06/06/20 14:02 Urine Blood Sm (Negative) 06/06/20 14:02 Urine Nitrite Neg (Negative) 06/06/20 14:02 Urine Bilirubin Neg (Negative) 06/06/20 14:02 Urine Urobilinogen < 2.0 mg/dL (<2.0) 06/06/20 14:02 Ur Leukocyte Esterase Lg (Negative) 06/06/20 14:02 Urine WBC (Auto) > 182.0 /HPF (0.0-6.0) H 06/06/20 14:02 Urine RBC (Auto) 55.0 /HPF (0.0-6.0) 06/06/20 14:02 U Epithel Cells (Auto) 1.0 /HPF (0-13.0) 06/06/20 14:02 Urine WBC Clumps 2+ /HPF 06/06/20 14:02 Urine Creatinine 57.0 mg/dL (0.1-20.0) H 06/06/20 21:05 Urine Sodium 85 mmol/L 06/06/20 21:05 Random Vancomycin 9.8 ug/mL (0-40.0) 06/09/20 04:30 Urine Opiates Screen Presumptive negative 06/06/20 14:02 Urine Methadone Screen Presumptive negative 06/06/20 14:02 Ur Barbiturates Screen Presumptive negative 06/06/20 14:02 Ur Phencyclidine Scrn Presumptive negative 06/06/20 14:02 Ur Amphetamines Screen Presumptive negative 06/06/20 14:02 U Benzodiazepines Scrn Presumptive negative 06/06/20 14:02 Urine Cocaine Screen Presumptive negative 06/06/20 14:02 U Marijuana (THC) Screen Presumptive negative 06/06/20 14:02 Drugs of Abuse Note Disclamer 06/06/20 14:02 Plasma/Serum Alcohol < 0.01 % (0-0.07) 06/06/20 10:19 C. difficile Tox (PCR) Negative (Negative) 06/08/20 Unknown Coronavirus (PCR) Negative (Negative) 06/07/20 09:15 Blood Type O POSITIVE 06/15/20 11:00 Antibody Screen Negative 06/15/20 11:00 Crossmatch See Detail 06/15/20 11:00 Torres/IV: Voiding Method Indwelling Catheter Active Medications - Current Medications Current Medications: Generic Name Dose Route Start Last Admin Trade Name Freq PRN Reason Stop Dose Admin Acetaminophen 650 mg 06/06/20 15:00 06/11/20 21:52 Acetaminophen 325 Mg Tab PO 650 mg Q6H PRN Administration Pain, Mild (1-3) Albuterol 2.5 mg 06/06/20 15:00 Albuterol 2.5 Mg/3 Ml Nebu IH Q3HRT PRN Shortness Of Breath Allopurinol 100 mg 06/07/20 10:00 06/15/20 09:56 Allopurinol 100 Mg Tab PO 100 mg QDAY YELENA Administration Calcium Carbonate/Glycine 500 mg 06/07/20 10:00 06/15/20 09:56 Calcium Carbonate 500 Mg Tab Chew PO 500 mg QDAY YELENA Administration Cholecalciferol 2,000 unit 06/07/20 10:00 06/15/20 09:56 Cholecalciferol (Vit D3) 1000 Unit (25 Mcg) Tab PO 2,000 unit QDAY YELENA Administration Cholestyramine Resin 4 gm 06/12/20 22:00 06/15/20 09:56 Cholestyramine (With Sugar) 4 Gm Packet PO 4 gm BID YELENA Administration Dicyclomine HCl 10 mg 06/06/20 20:00 06/15/20 09:55 Dicyclomine 10 Mg Cap PO 10 mg TID YELENA Administration Famotidine 20 mg 06/13/20 10:00 06/15/20 09:56 Famotidine 20 Mg Tab PO 20 mg QDAY YELENA Administration Potassium Phosphate 30 mmol/ 510 mls @ 85 mls/hr 06/15/20 10:00 06/15/20 10:07 Sodium Chloride IV 06/15/20 15:59 85 mls/hr ONCE ONE Administration Magnesium Sulfate 4 gm in 100 mls @ 25 mls/hr 06/15/20 10:00 06/15/20 10:07 Magnesium Sulfate 4gm/100ml IV 06/15/20 13:59 25 mls/hr ONCE ONE Administration Sodium Chloride 500 mls @ 0 mls/hr 06/15/20 09:00 Nacl 0.9% 500 Ml IV 06/15/20 19:00 ONCE YELENA As Directed Magnesium Citrate 300 ml 06/06/20 16:20 Magnesium Citrate 300 Ml Oral Liqd PO QDAY PRN Constipation Metoprolol Tartrate 25 mg 06/09/20 22:00 06/15/20 09:57 Metoprolol Tartrate 25 Mg Tab PO 25 mg BID YELENA Administration Pravastatin Sodium 10 mg 06/06/20 22:00 06/14/20 23:01 Pravastatin 20 Mg Tab PO 10 mg QHS YELENA Administration Sodium Chloride 10 ml 06/06/20 15:00 06/15/20 10:07 Sodium Chloride 0.9% 10 Ml Flush Syringe IV 10 ml BID YELENA Administration Sodium Chloride 10 ml 06/06/20 15:00 Sodium Chloride 0.9% 10 Ml Flush Syringe IV PRN PRN LINE FLUSH Tamsulosin HCl 0.4 mg 06/14/20 11:00 06/15/20 09:56 Tamsulosin 0.4 Mg Cap PO 0.4 mg QDAY YELENA Administration Nutrition/Malnutrition Assess - Dietary Evaluation Nutrition/Malnutrition Findings: Nutrition Notes Start: 06/08/20 11:43 Freq: Status: Active Protocol: Document 06/13/20 14:44 CW (Rec: 06/13/20 14:57 CW [id number]) Nutrition Notes Initial or Follow up Reassessment Current Diagnosis Acute Kidney Injury,Diabetes, Hypertension Other Pertinent Diagnosis AMS, Dementia, UTI, metabolic encephalopathy, ?s/p CVA? Current Diet Mechanical soft diet + ONS BID Labs/Tests Na 146 BUN 38 Cr 1.4 K 3.0 Pertinent Medications D5 at 50 ml/hr K dur K3PO4 Height 5 ft 8 in Weight 77.1 kg [place] Body Weight (kg) 70.00 BMI 25.8 Weight Status Appropriate Subjective/Other Information F/U for intakes and ONS.Per tech pt refusing to eat solid foods but will drinK ONS. Will increase ONS.; Attempted to obtain preferences from pt but pt is pleasantly confused. Recommend appetite stimulant. Burn Absent Trauma Absent GI Symptoms Diarrhea Difficulty In Swallowing Skin Integrity/Comment Stage 1 pressure ulcer Current % PO Negligible Minimum of two criteria No Fluid Accumulation Mild (non-severe) #2 Nutrition Diagnosis Increased nutrient needs ( specify in comment below) Diagnosis Progress(for reassessment Continues documentation) #1 Nutrition Diagnosis Inadequate oral intake As Evidenced by Signs and Symptoms Pt not eating much of meals Diagnosis Progress(for reassessment Continues documentation) Is patient on ventilator? No Is Patient Ambulatory and/or Out of Bed Yes REE-([place]-St. Jeor-ambulatory/OOB) [ [id number] [id number]] Calculation Used for Recommendations [place]-St Jeor Additional Notes protein needs: 62 - 153g (0.8 - 1.2g/kgBW for ISAAC) fluid needs: 1 ml/kcal Nutrition Intervention Change Diet Order: Continue Mechanical Soft Diet, ONS Add Supplement/Snack (indicate name/kcal Nepro TID /protein ) Provides kCal: 1,275 Provides Protein (gm) 57 Goal #1 Meet at least 75% of kcal and proteins via PO Goal #2 wound healing Anticipated Discharge Needs: Mechanical Soft diet + ONS PRN Follow-Up By: 06/16/20 Additional Comments F/U intakes and ONS tolerance
--- NOTE | 2020-06-15 15:54 | Progress Note ---
Assessment and Plan Cultures: Blood culture 06/06/2020 coagulase-negative staph 1 out of 4 Blood culture 06/08/2020 no growth today C. difficile PCR negative SARS-CoV-2 PCR negative Urine culture 06/07/2020 no growth Assessment: 80 years old male with history of dementia, CVA, debility, diabetes mellitus, secondary to few hours of unresponsiveness at breakfast at his assisted living facility: #Sepsis with septic shock: Resolved, remarkable improvement, off pressors; source UTI +/- colitis. Completed cefepime 5 days #Extensive colitis: remains with large foul smelling diarrhea. seen on CT ? ischemia. C diff neg #Coagulase-negative staph bacteremia: 1 out of 4 likely contaminant. #Acute hypoxemic respiratory failure: now on NC O2. CXR clear. SARS-CoV-2 PCR negative. #UTI: with hematuria, urine culture no growth #Acute encephalopathy: due to sepsis> CT no acute changes. Resolved. #ISAAC: ? from sepsis, better #RVR A. fib: On amiodarone, cardiology on board #Thrombocytopenia: Monitor platelets, likely due to sepsis, resolved. Recommendations: -Avoid laxative -remove torres as feasible -monitor leukocytosis -Okay for discharge from ID standpoint when diarrhea improved. Narayan Rowley MD [facility] O: [phone] F: [phone] Subjective Date of service: 06/15/20 Principal diagnosis: shock Interval history: Afebrile, normal white count. Objective - Exam Narrative Exam: General appearance: Alert in NAD on NC O2 Eyes: anicteric sclerae, moist conjunctivae; no lid-lag; PERRLA HENT: Normocephalic, Atraumatic; normal external ears, nares open, oropharynx limited edentulous Neck: supple, tracheal midline, no JVD Lungs: Clear to auscultation bilaterally CV: RRR no murmur Abdomen: Soft, nontender, ventral hernia Extremities: no edema, no cyanosis Skin: No rash. Psych: no agitated Neuro: Alert, follows simple commands - Constitutional Vitals: Vital Signs Temp Pulse Resp BP Pulse Ox 97.6 F 71 18 128/52 97 06/15/20 07:49 06/15/20 10:00 06/15/20 10:00 06/15/20 09:57 06/15/20 10:00 Temperature -Last 24 Hours Temperature 97.6 F Temperature 99.1 F Temperature 99.1 F Temperature 99.2 F Temperature 98.4 F - Labs CBC & Chem 7: 06/15/20 06:31 06/15/20 06:31 Labs: Abnormal lab results 06/14/20 06/14/20 06/15/20 Range/Units 16:39 20:32 06:31 RBC 2.23 L (3.65-5.03) M/mm3 Hgb 6.9 L (11.8-15.2) gm/dl Hct 21.5 L (35.5-45.6) % MCV 97 H (84-94) fl Chloride (98-107) mmol/L BUN (9-20) mg/dL POC Glucose 152 H 134 H (70-105) mg/dL Calcium (8.4-10.2) mg/dL Phosphorus (2.5-4.5) mg/dL Magnesium (1.7-2.3) mg/dL Crossmatch 06/15/20 06/15/20 Range/Units 06:31 11:00 RBC (3.65-5.03) M/mm3 Hgb (11.8-15.2) gm/dl Hct (35.5-45.6) % MCV (84-94) fl Chloride 110.0 H (98-107) mmol/L BUN 26 H (9-20) mg/dL POC Glucose (70-105) mg/dL Calcium 7.5 L (8.4-10.2) mg/dL Phosphorus 1.70 L (2.5-4.5) mg/dL Magnesium 1.30 L (1.7-2.3) mg/dL Crossmatch See Detail
--- NOTE | 2020-06-15 17:15 | Gastroenterology Progress Note ---
Assessment and Plan 1. GI: pt presented w/ shock now with colitis and loose stool - C. diff and other stool cx's negative - more alert w/ signs decreasing loose stools - antibiotics per ID - Continue current meds including Questran - continue po, advance as tolerated - no plans to scope at this time - when diarrhea stable ok to dc from GI standpoint, possibly tomorrow - will follow Subjective Date of service: 06/15/20 Principal diagnosis: shock Interval history: - reported decrease loose stool per staff Objective - Constitutional Vitals: Temp Pulse Resp BP Pulse Ox 97.6 F 76 20 137/43 95 06/15/20 07:49 06/15/20 16:12 06/15/20 16:12 06/15/20 16:12 06/15/20 16:12 General appearance: no acute distress - EENT Eyes: PERRL - Respiratory Respiratory: bilateral: CTA - Cardiovascular Rhythm: regular Heart Sounds: Present: S1 & S2 - Gastrointestinal General gastrointestinal: Present: soft, non-tender, non-distended - Labs CBC & Chem 7: 06/15/20 06:31 06/15/20 06:31 Labs: Laboratory Results - last 24 hr 06/14/20 06/14/20 06/14/20 10:35 16:39 20:32 WBC RBC Hgb Hct MCV MCH MCHC RDW Plt Count Sodium Potassium Chloride Carbon Dioxide Anion Gap BUN Creatinine Estimated GFR BUN/Creatinine Ratio Glucose POC Glucose 152 H 134 H Calcium Phosphorus Magnesium Coronavirus (PCR) Negative Blood Type Antibody Screen Crossmatch 06/15/20 06/15/20 06/15/20 06:31 06:31 07:47 WBC 10.3 RBC 2.23 L Hgb 6.9 L Hct 21.5 L MCV 97 H MCH 31 MCHC 32 RDW 14.2 Plt Count 192 Sodium 140 Potassium 3.6 Chloride 110.0 H Carbon Dioxide 22 Anion Gap 12 BUN 26 H Creatinine 1.2 Estimated GFR > 60 BUN/Creatinine Ratio 22 Glucose 88 POC Glucose 86 Calcium 7.5 L Phosphorus 1.70 L Magnesium 1.30 L Coronavirus (PCR) Blood Type Antibody Screen Crossmatch 06/15/20 06/15/20 11:00 11:14 WBC RBC Hgb Hct MCV MCH MCHC RDW Plt Count Sodium Potassium Chloride Carbon Dioxide Anion Gap BUN Creatinine Estimated GFR BUN/Creatinine Ratio Glucose POC Glucose 78 Calcium Phosphorus Magnesium Coronavirus (PCR) Blood Type O POSITIVE Antibody Screen Negative Crossmatch See Detail
[2020-06-15] MEDS: PRAVASTATIN 20 MG TAB PO SCH (21:51)
[2020-06-16 05:33] LABS: Calcium 7.7 mg/dL (8.4-10.2)
[2020-06-16] MEDS ORDERED: CALCIUM GLUCONATE 1,000 MG in SODIUM CHLORIDE 0.9% 100 ML IV ONE (06:18)
[2020-06-16] MEDS ORDERED: DEXTROSE 50% IN WATER (25GM) 50 ML SYRINGE IV ONE (08:15)
--- NOTE | 2020-06-16 09:58 | Progress Note ---
Assessment and Plan 1. Acute kidney injury: Vasomotor ISAAC in the setting of shock. Renal US ordered negative for hydro. Monitor renal function. Creatinine level is better. Avoid nephrotoxic agents. Meds dosage based on GFR. 2. FEN: Hypernatremia, improved. Hypokalemia, replete K, monitor. Metabolic acidosis, Sod bicarb, monitor. Monitor lytes and volume status. 3. Sepsis with shock: Currently off pressors. Monitor BP. 4. UTI: Abx per ID. 5. Acute hypoxemic respiratory failure: CXR clear. COVID test negative. NC O2 as needed. 6. Diarrhea: ?Colitis. C.diff negative. 7. Suspected R kidney mass: CT abdomen showed cyst. D/w patient's daughter to follow up in 2-3 weeks. 8. Metabolic encephalopathy: Monitor. 9. H/o Dementia: Supportive care. 10. H/o HTN: Monitor BP. 11. Anemia, POA: Monitor. Subjective: Patient was seen and examined at the bedside. No new complaint. Objective: General appearance: well-developed, appears stated age, not in distress HEENT: ATNC Neck: trachea midline Respiratory: ctab Heart: regular, S1S2, no murmur Gastrointestinal: soft, normoactive bowel sounds, not tender Integumentary: no rash, warm and dry Ext: no edema Neurologic: alert, not following any command, confusion noted Ext: trace edema : torres catheter Subjective Date of service: 06/16/20 Principal diagnosis: shock Objective - Vital Signs Vital signs: Vital Signs - 12hr 06/15/20 06/16/20 06/16/20 23:42 03:46 08:11 Temperature 98.0 F 98.0 F 98.2 F Pulse Rate 77 84 88 Respiratory 18 18 18 Rate Blood Pressure 154/66 151/62 150/54 O2 Sat by Pulse 100 100 97 Oximetry - Lab 06/16/20 12:50 06/16/20 04:40 Most recent lab results ABG pH 7.329 pH Units (7.350-7.450) L 06/06/20 11:18 ABG pCO2 27.8 mm Hg 06/06/20 11:18 ABG pO2 258.1 mm Hg (80.0-90.0) H 06/06/20 11:18 ABG HCO3 14.3 mmol/L (20.0-26.0) L 06/06/20 11:18 ABG O2 Saturation 99.4 % (95.0-99.0) H 06/06/20 11:18 Calcium 7.7 mg/dL (8.4-10.2) L 06/16/20 04:40 Phosphorus 2.70 mg/dL (2.5-4.5) D 06/16/20 04:40 Magnesium 1.70 mg/dL (1.7-2.3) 06/16/20 04:40 Urine Creatinine 57.0 mg/dL (0.1-20.0) H 06/06/20 21:05 Urine Sodium 85 mmol/L 06/06/20 21:05 Medications & Allergies - Medications Allergies/Adverse Reactions: Allergies No Known Allergies Allergy (Verified 06/06/20 15:21) Home Medications: Home Medications Medication Instructions Recorded Confirmed Last Taken Type Amlodipine Besylate [Norvasc] 5 mg PO QDAY 06/06/20 06/06/20 Unknown History Bisacodyl [Women's Gentle Laxative] 5 mg PO BID 06/06/20 06/06/20 Unknown History Calcium Carb/Magnesium Hydrox 500 mg PO QDAY 06/06/20 06/06/20 Unknown History [Antacid 1000-200 mg Tab Chew] Cholecalciferol (Vitamin D3) 2,000 unit PO QDAY 06/06/20 06/06/20 Unknown History [Vitamin D3 2,000 UNIT CAP] Dextrose/Dextrin/Maltose 24 gm PO ONCE 06/06/20 06/06/20 Unknown History [Insta-Glucose Gel] Diclofenac 1% [Diclofenac 1% 100 gm TP QDAY 06/06/20 06/06/20 Unknown History topical gel] Dicyclomine [Bentyl] 10 mg PO TID 06/06/20 06/06/20 Unknown History Docusate Sodium [Colace] 100 mg PO BID PRN 06/06/20 06/06/20 Unknown History Furosemide [Lasix] 40 mg PO QDAY 06/06/20 06/06/20 Unknown History Insulin Lispro [Insulin Lispro 10 unit SQ TID 06/06/20 06/06/20 Unknown History Kwikpen U-100] Magnesium Citrate [Citroma] 296 ml PO QDAY 06/06/20 06/06/20 Unknown History Melatonin [Melatonin 3MG TAB] 6 mg PO QHS 06/06/20 06/06/20 Unknown History Oxycodone HCl/Acetaminophen 1 each PO QDAY 06/06/20 06/06/20 Unknown History [Oxycodone-Acetaminophen 10-325] Pantoprazole [Protonix] 40 mg PO QDAY 06/06/20 06/06/20 Unknown History Pioglitazone HCl [Actos] 30 mg PO QDAY 06/06/20 06/06/20 Unknown History Polyethylene Glycol 3350 [Gavilax] 10 gm PO QDAY 06/06/20 06/06/20 Unknown History Pravastatin Sodium [Pravastatin] 10 mg PO QHS 06/06/20 06/06/20 Unknown History Tamsulosin [Flomax] 0.4 mg PO QDAY 06/06/20 06/06/20 Unknown History allopurinoL [Zyloprim] 100 mg PO QDAY 06/06/20 06/06/20 Unknown History lisinopriL [Lisinopril] 20 mg PO QDAY 06/06/20 06/06/20 Unknown History Active Medications: Generic Name Dose Route Start Last Admin Trade Name Freq PRN Reason Stop Dose Admin Acetaminophen 650 mg 06/06/20 15:00 06/11/20 21:52 Acetaminophen 325 Mg Tab PO 650 mg Q6H PRN Administration Pain, Mild (1-3) Albuterol 2.5 mg 06/06/20 15:00 Albuterol 2.5 Mg/3 Ml Nebu IH Q3HRT PRN Shortness Of Breath Allopurinol 100 mg 06/07/20 10:00 06/15/20 09:56 Allopurinol 100 Mg Tab PO 100 mg QDAY YELENA Administration Calcium Carbonate/Glycine 500 mg 06/07/20 10:00 06/15/20 09:56 Calcium Carbonate 500 Mg Tab Chew PO 500 mg QDAY YELENA Administration Cholecalciferol 2,000 unit 06/07/20 10:00 06/15/20 09:56 Cholecalciferol (Vit D3) 1000 Unit (25 Mcg) Tab PO 2,000 unit QDAY YELENA Administration Cholestyramine Resin 4 gm 06/12/20 22:00 06/15/20 21:54 Cholestyramine (With Sugar) 4 Gm Packet PO 4 gm BID YELENA Administration Dicyclomine HCl 10 mg 06/06/20 20:00 06/15/20 21:54 Dicyclomine 10 Mg Cap PO 10 mg TID YELENA Administration Famotidine 20 mg 06/13/20 10:00 06/15/20 09:56 Famotidine 20 Mg Tab PO 20 mg QDAY YELENA Administration Magnesium Citrate 300 ml 06/06/20 16:20 Magnesium Citrate 300 Ml Oral Liqd PO QDAY PRN Constipation Metoprolol Tartrate 25 mg 06/09/20 22:00 06/15/20 21:51 Metoprolol Tartrate 25 Mg Tab PO 25 mg BID YELENA Administration Pravastatin Sodium 10 mg 06/06/20 22:00 06/15/20 21:51 Pravastatin 20 Mg Tab PO 10 mg QHS YELENA Administration Sodium Chloride 10 ml 06/06/20 15:00 06/15/20 21:57 Sodium Chloride 0.9% 10 Ml Flush Syringe IV 10 ml BID YELENA Administration Sodium Chloride 10 ml 06/06/20 15:00 Sodium Chloride 0.9% 10 Ml Flush Syringe IV PRN PRN LINE FLUSH Tamsulosin HCl 0.4 mg 06/14/20 11:00 06/15/20 09:56 Tamsulosin 0.4 Mg Cap PO 0.4 mg QDAY YELENA Administration
[2020-06-16] MEDS: CALCIUM CARBONATE 500 MG TAB CHEW PO SCH (10:10)
--- NOTE | 2020-06-16 10:41 | Progress Note ---
Assessment and Plan Assessment and plan: This is a 80-year-old male who is a resident of assisted living facility with vascular dementia, cerebral sclerosis, debility, diabetes mellitus who presents to the emergency department on 06/06 with complaints of lethargy and diminished cognition as per daughter he developed an episode of unresponsiveness while at breakfast at at his assisted living facility. Patient was found to have a urinary tract infection complicated by sepsis and septic shock, acute kidney injury, toxic metabolic encephalopathy as well as metabolic acidosis. Patient was hypotensive with systolic blood pressures in the 50s and was initiated on vasopressor support in the emergency department. Patient was admitted to the hospital service with consults to nephrology and [facility]. Septic Shock Metabolic encephalopathy Coag negative Staphylococcus 03/07 bottles Urinary tract infection Possible ISCHEMIC COLITIS Acute hypoxic respiratory failure Acute kidney injury Metabolic acidosis Diarrhea Dementia Hypertension Anemia 06/07: Patient remains on dopamine, vasopressin and Levophed. Nephrology has started the patient on sodium bicarbonate drip for metabolic acidosis. Infectious disease initiated vancomycin in addition to the cefepime and ordered a C. difficile. 06/08: Patient has gram-positive cocci bacteremia in 03/07 bottles which grew to be coag negative staph coccus and he has repeat blood cultures in progress. Urine culture has no growth to date and he is on IV vancomycin and cefepime. Yesterday we ordered a C. difficile PCR which is pending. Patient had a moment of tachycardia into the 130s and a stat EKG was obtained. Patient was given amiodarone bolus by [facility] and cardiology was consulted. Patient is hyperchloremic today however his metabolic acidosis and BUN/creatinine is slightly improved to 93/3.2 from 100/3.6 and his repeat lactic acid is 1.5. At the time my examination patient was on Levophed at 6, vasopressin 0.03 and dopamine at 6. This morning patient failed his swallow eval and ST evaluation was ordered. Of note patient's echocardiogram shows reduced 15 to 20% with borderline left ventricular hypertrophy. 06/09: This morning his speech evaluation was completed and he has been cleared for mechanical soft diet with thin liquids. Patient complained of right-sided chest pain with radiation to shoulders and a stat EKG cardiac enzymes were ordered. Patient was recultured yesterday and those have no growth to date and his vancomycin was stopped. Infectious disease team recommends removal of Torres catheter when feasible and a CT abdomen/pelvis when stable. Patient has been cleared to transfer to the floor by cardiology and [facility]. 06/10/2020; patient is on IV cefepime for sepsis due to UTI day 3 out of 5. Vancomycin discontinued. Patient is complaining pleuritic chest pain. Patient was evaluated by cardiology for elevated troponin and episode of A. fib on admission. Cardiology discontinued amiodarone and put her on Lopressor. Cardiology recommend against anticoagulation because of patient's anemia. Hemoglobin this morning was 7.4 and anemia work-up is in progress. I did o rdered CT abdomen and pelvis. PT OT evaluation. Patient has ISAAC and nephrology is following. Patient has rectal tube and liquid stool in the bag. I ordered stool for C. difficile. We will continue to monitor. 06/11/2020; patient is on cefepime day 06/06. CT abdomen and pelvis was done and significant for colitis, ischemic colitis is possibility given hypotension and elevated lactic acid level. I will consult GI. Patient has episode of A. fib for less than 24 hours, cardiology was consulted and recommend to be on Lopressor. No need for coagulation because of his anemia. Hemoglobin this morning is improved to 8. Anemia work-up was done, no iron deficiency anemia identified. ISAAC is improving. C. difficile was negative. 06/12/2020; continue cefepime per ID recommendation. CT abdomen and pelvis is significant for ischemic colitis likely due to septic shock, hypotension. Patient was seen by GI and recommend no further intervention at this time. Patient had episode of A. fib on admission for less than 24 hours and cardiology recommend to continue on Lopressor, no anticoagulation needed. Hemoglobin is improving. Patient came from assisted living facility. Patient need Covid test before discharge. ISAAC is improving. Creatinine this morning was 1.7. Nephrology is following. OT evaluated and recommend subacute rehab, PT evaluation is pending. 06/13: Replace K and Mag, continue to monitor renal fuction, Continue abx per ID, c.diff negative. patient still with Rectal tube and Torres but will re- evaluate for possible discontinuation. Questran started by GI. Will continue to monitor and replace electrolytes Discussed with nursing staff to change torres to condom catheter CM to try and ascertain patients functional status prior to hospitalization 06/14: Patient showing some clinical improvement Torres replaced due to urinary retention about 1000 cc of clear urine removed. Flomax started. PT OT consulted as patient is noted to have been ambulatory prior to this admission will likely need SNF placement. Diarrhea consistency is improving anticipate discharge in 24 to 48 hours once approval is obtained. Cardiology input is noted Lopressor 25 mg p.o. twice daily possible addition of SABIHA inhibitor or ARB when okay with nephrology as regular this is a is improving. At this time no AC for A. fib management due to anemia and the transient nature of the A. fib which was less than 24 hours. 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 Unknown etiology or chronicity of these diagnoses. No current clinical evidence of acutely decompensated HF. Per [place] records, pt saw [place] [facility] in 1998 and underwent LHC which did not show any significant findings. Continue with conservative cardiac management given pt's advanced age, dementia and multiple co-morbidities. Recommend pt follow up in our office with Dr. Rosa within 2 weeks of discharge ([phone]). 06/15: Continue supportive care. Will give a unit of PRBC and anticipate discharge today or tomorrow once approval from insurance company obtained. PATIENT will need urology follow up outpatient and also cardiology outpatient. Discussed with patient and Case management Continue PT OT 06/16: Still awaiting prior approval from the insurance company for patient to be discharged. Continue supportive care thrombocytopenia noted again antiplatelets are on hold. We will continue to monitor anticipate discharge once prior authorization is received from insurance [employer]. Continue rehab therapy while in house Hospitalist Physical - Constitutional Vitals: Temp Pulse Resp BP Pulse Ox 98.2 F 88 18 150/54 97 06/16/20 08:11 06/16/20 08:11 06/16/20 08:11 06/16/20 08:11 06/16/20 08:11 General appearance: Present: no acute distress, well-nourished HEART Score - HEART Score Troponin: Troponin T 0.170 ng/mL (0.00-0.029) H* D 06/11/20 05:30 Results - Labs CBC & Chem 7: 06/16/20 12:50 06/16/20 04:40 Labs: Laboratory Last Values WBC 10.3 K/mm3 (4.5-11.0) 06/15/20 06:31 RBC 2.23 M/mm3 (3.65-5.03) L 06/15/20 06:31 Hgb 6.9 gm/dl (11.8-15.2) L 06/15/20 06:31 Hct 21.5 % (35.5-45.6) L 06/15/20 06:31 MCV 97 fl (84-94) H 06/15/20 06:31 MCH 31 pg (28-32) 06/15/20 06:31 MCHC 32 % (32-34) 06/15/20 06:31 RDW 14.2 % (13.2-15.2) 06/15/20 06:31 Plt Count 192 K/mm3 (140-440) 06/15/20 06:31 Lymph % (Auto) 6.8 % (13.4-35.0) L 06/13/20 06:13 [place] % (Auto) 5.0 % (0.0-7.3) 06/13/20 06:13 Eos % (Auto) 1.7 % (0.0-4.3) 06/13/20 06:13 Baso % (Auto) 0.2 % (0.0-1.8) 06/13/20 06:13 Lymph # (Auto) 0.9 K/mm3 (1.2-5.4) L 06/13/20 06:13 [place] # (Auto) 0.7 K/mm3 (0.0-0.8) 06/13/20 06:13 Eos # (Auto) 0.2 K/mm3 (0.0-0.4) 06/13/20 06:13 Baso # (Auto) 0.0 K/mm3 (0.0-0.1) 06/13/20 06:13 Add Manual Diff Complete 06/12/20 05:24 Total Counted 100 06/12/20 05:24 Seg Neutrophils % 86.3 % (40.0-70.0) H 06/13/20 06:13 Seg Neuts % (Manual) 82.0 % (40.0-70.0) H 06/12/20 05:24 Band Neutrophils % 3.0 % 06/12/20 05:24 Lymphocytes % (Manual) 10.0 % (13.4-35.0) L 06/12/20 05:24 Reactive Lymphs % (Man) 1.0 % 06/12/20 05:24 Monocytes % (Manual) 2.0 % (0.0-7.3) 06/12/20 05:24 Eosinophils % (Manual) 2.0 % (0.0-4.3) 06/12/20 05:24 Nucleated RBC % Not Reportable 06/12/20 05:24 Seg Neutrophils # 11.9 K/mm3 (1.8-7.7) H 06/13/20 06:13 Seg Neutrophils # Man 11.2 K/mm3 (1.8-7.7) H 06/12/20 05:24 Band Neutrophils # 0.4 K/mm3 06/12/20 05:24 Lymphocytes # (Manual) 1.4 K/mm3 (1.2-5.4) 06/12/20 05:24 Abs React Lymphs (Man) 0.1 K/mm3 06/12/20 05:24 Monocytes # (Manual) 0.3 K/mm3 (0.0-0.8) 06/12/20 05:24 Eosinophils # (Manual) 0.3 K/mm3 (0.0-0.4) 06/12/20 05:24 Basophils # (Manual) 0.0 K/mm3 (0.0-0.1) 06/12/20 05:24 Metamyelocytes # 0.0 K/mm3 06/12/20 05:24 Myelocytes # 0.0 K/mm3 06/12/20 05:24 Promyelocytes # 0.0 K/mm3 06/12/20 05:24 Blast Cells # 0.0 K/mm3 06/12/20 05:24 WBC Morphology Not Reportable 06/12/20 05:24 Hypersegmented Neuts Not Reportable 06/12/20 05:24 Hyposegmented Neuts Not Reportable 06/12/20 05:24 Hypogranular Neuts Not Reportable 06/12/20 05:24 Smudge Cells Not Reportable 06/12/20 05:24 Toxic Granulation Not Reportable 06/12/20 05:24 Toxic Vacuolation Not Reportable 06/12/20 05:24 Dohle Bodies Not Reportable 06/12/20 05:24 Pelger-Huet Anomaly Not Reportable 06/12/20 05:24 Denys Rods Not Reportable 06/12/20 05:24 Platelet Estimate Consistent w auto 06/12/20 05:24 Clumped Platelets Not Reportable 06/12/20 05:24 Plt Clumps, EDTA Not Reportable 06/12/20 05:24 Large Platelets Not Reportable 06/12/20 05:24 Giant Platelets Not Reportable 06/12/20 05:24 Platelet Satelliting Not Reportable 06/12/20 05:24 Plt Morphology Comment Not Reportable 06/12/20 05:24 RBC Morphology Not Reportable 06/12/20 05:24 Dimorphic RBCs Not Reportable 06/12/20 05:24 Polychromasia Not Reportable 06/12/20 05:24 Hypochromasia Not Reportable 06/12/20 05:24 Poikilocytosis Not Reportable 06/12/20 05:24 Anisocytosis 1+ 06/12/20 05:24 Microcytosis Not Reportable 06/12/20 05:24 Macrocytosis 1+ 06/12/20 05:24 Spherocytes Not Reportable 06/12/20 05:24 Pappenheimer Bodies Not Reportable 06/12/20 05:24 Sickle Cells Not Reportable 06/12/20 05:24 Target Cells Not Reportable 06/12/20 05:24 Tear Drop Cells Not Reportable 06/12/20 05:24 Ovalocytes Not Reportable 06/12/20 05:24 Helmet Cells Not Reportable 06/12/20 05:24 [place] Bodies Not Reportable 06/12/20 05:24 [place] Rings Not Reportable 06/12/20 05:24 Dom Cells Not Reportable 06/12/20 05:24 Bite Cells Not Reportable 06/12/20 05:24 Crenated Cell Not Reportable 06/12/20 05:24 Elliptocytes Not Reportable 06/12/20 05:24 Acanthocytes (Spur) Not Reportable 06/12/20 05:24 Rouleaux Not Reportable 06/12/20 05:24 Hemoglobin C Crystals Not Reportable 06/12/20 05:24 Schistocytes Not Reportable 06/12/20 05:24 Malaria parasites Not Reportable 06/12/20 05:24 Chance Bodies Not Reportable 06/12/20 05:24 Hem Pathologist Commnt No 06/12/20 05:24 PT 16.3 Sec. (12.2-14.9) H 06/06/20 10:19 INR 1.33 (0.87-1.13) H 06/06/20 10:19 APTT 31.6 Sec. (24.2-36.6) 06/06/20 10:19 ABG pH 7.329 pH Units (7.350-7.450) L 06/06/20 11:18 ABG pCO2 27.8 mm Hg 06/06/20 11:18 ABG pO2 258.1 mm Hg (80.0-90.0) H 06/06/20 11:18 ABG HCO3 14.3 mmol/L (20.0-26.0) L 06/06/20 11:18 ABG O2 Saturation 99.4 % (95.0-99.0) H 06/06/20 11:18 ABG O2 Content 13.2 (0.0-44) 06/06/20 11:18 ABG Base Excess -10.5 mmol/L (-2.0-3.0) L 06/06/20 11:18 ABG Hemoglobin 9.1 gm/dl (14.0-18.0) L 06/06/20 11:18 ABG Carboxyhemoglobin 1.3 % (0.0-5.0) 06/06/20 11:18 ABG Methemoglobin Not Reportable 06/06/20 11:18 VBG pH 7.438 (7.320-7.420) H 06/06/20 10:19 Oxyhemoglobin 98.2 % (95.0-99.0) 06/06/20 11:18 FiO2 21 % 06/06/20 11:18 Sodium 138 mmol/L (137-145) 06/16/20 04:40 Potassium 4.0 mmol/L (3.6-5.0) 06/16/20 04:40 Chloride 109.3 mmol/L (98-107) H 06/16/20 04:40 Carbon Dioxide 19 mmol/L (22-30) L 06/16/20 04:40 Anion Gap 14 mmol/L 06/16/20 04:40 BUN 21 mg/dL (9-20) H 06/16/20 04:40 Creatinine 1.4 mg/dL (0.8-1.3) H 06/16/20 04:40 Estimated GFR 59 ml/min 06/16/20 04:40 BUN/Creatinine Ratio 15 % 06/16/20 04:40 Glucose 77 mg/dL (75-100) 06/16/20 04:40 POC Glucose 88 mg/dL (70-105) 06/16/20 01:20 Lactic Acid 1.50 mmol/L (0.7-2.0) 06/08/20 05:15 Calcium 7.7 mg/dL (8.4-10.2) L 06/16/20 04:40 Phosphorus 2.70 mg/dL (2.5-4.5) D 06/16/20 04:40 Magnesium 1.70 mg/dL (1.7-2.3) 06/16/20 04:40 Iron 54 ug/dL (49-181) 06/10/20 10:44 TIBC 157 mcg/dL (250-450) L 06/10/20 10:44 Ferritin 569.5 ng/mL (30.0-300.0) H 06/10/20 10:44 Total Bilirubin 0.20 mg/dL (0.1-1.2) 06/14/20 05:23 AST 19 units/L (5-40) 06/14/20 05:23 ALT 20 units/L (7-56) 06/14/20 05:23 Alkaline Phosphatase 55 units/L (35-129) 06/14/20 05:23 Ammonia 64.0 umol/L (25-60) H 06/06/20 10:19 Total Creatine Kinase 1212 units/L (55-170) H 06/09/20 12:57 CK-MB (CK-2) 12.1 ng/mL (0.0-4.0) H 06/09/20 12:57 CK-MB (CK-2) Rel Index 0.9 (0-4) 06/09/20 12:57 Troponin T 0.170 ng/mL (0.00-0.029) H* D 06/11/20 05:30 Total Protein 4.9 g/dL (6.3-8.2) L 06/14/20 05:23 Albumin 2.4 g/dL (3.9-5) L 06/14/20 05:23 Albumin/Globulin Ratio 1.0 % 06/14/20 05:23 Triglycerides 103 mg/dL (2-149) 06/06/20 10:19 Cholesterol 84 mg/dL (50-199) 06/06/20 10:19 LDL Cholesterol Direct 28 mg/dL (50-130) L 06/06/20 10:19 HDL Cholesterol 44 mg/dL (40-59) 06/06/20 10: Cholesterol/HDL Ratio 1.90 % 06/06/20 10:19 Vitamin B12 1170 pg/mL (211-911) H 06/10/20 14:49 TSH 4.440 mlU/mL (0.270-4.200) H 06/06/20 10:19 Free T4 1.55 ng/dL (0.76-1.46) H 06/06/20 10:19 PTH Intact 271.9 pg/mL (15-65) H 06/08/20 05:15 Urine Color Yellow (Yellow) 06/06/20 14:02 Urine Turbidity Cloudy (Clear) 06/06/20 14:02 Urine pH 6.0 (5.0-7.0) 06/06/20 14:02 Ur Specific [place] 1.013 (1.003-1.030) 06/06/20 14:02 Urine Protein 100 mg/dl mg/dL (Negative) 06/06/20 14:02 Urine Glucose (UA) Neg mg/dL (Negative) 06/06/20 14:02 Urine Ketones Neg mg/dL (Negative) 06/06/20 14:02 Urine Blood Sm (Negative) 06/06/20 14:02 Urine Nitrite Neg (Negative) 06/06/20 14:02 Urine Bilirubin Neg (Negative) 06/06/20 14:02 Urine Urobilinogen < 2.0 mg/dL (<2.0) 06/06/20 14:02 Ur Leukocyte Esterase Lg (Negative) 06/06/20 14:02 Urine WBC (Auto) > 182.0 /HPF (0.0-6.0) H 06/06/20 14:02 Urine RBC (Auto) 55.0 /HPF (0.0-6.0) 06/06/20 14:02 U Epithel Cells (Auto) 1.0 /HPF (0-13.0) 06/06/20 14:02 Urine WBC Clumps 2+ /HPF 06/06/20 14:02 Urine Creatinine 57.0 mg/dL (0.1-20.0) H 06/06/20 21:05 Urine Sodium 85 mmol/L 06/06/20 21:05 Random Vancomycin 9.8 ug/mL (0-40.0) 06/09/20 04:30 Urine Opiates Screen Presumptive negative 06/06/20 14:02 Urine Methadone Screen Presumptive negative 06/06/20 14:02 Ur Barbiturates Screen Presumptive negative 06/06/20 14:02 Ur Phencyclidine Scrn Presumptive negative 06/06/20 14:02 Ur Amphetamines Screen Presumptive negative 06/06/20 14:02 U Benzodiazepines Scrn Presumptive negative 06/06/20 14:02 Urine Cocaine Screen Presumptive negative 06/06/20 14:02 U Marijuana (THC) Screen Presumptive negative 06/06/20 14:02 Drugs of Abuse Note Disclamer 06/06/20 14:02 Plasma/Serum Alcohol < 0.01 % (0-0.07) 06/06/20 10:19 C. difficile Tox (PCR) Negative (Negative) 06/08/20 Unknown Coronavirus (PCR) Negative (Negative) 06/14/20 10:35 Blood Type O POSITIVE 06/15/20 11:00 Antibody Screen Negative 06/15/20 11:00 Crossmatch See Detail 06/15/20 11:00 Torres/IV: Voiding Method Indwelling Catheter Active Medications - Current Medications Current Medications: Generic Name Dose Route Start Last Admin Trade Name Freq PRN Reason Stop Dose Admin Acetaminophen 650 mg 06/06/20 15:00 06/11/20 21:52 Acetaminophen 325 Mg Tab PO 650 mg Q6H PRN Administration Pain, Mild (1-3) Albuterol 2.5 mg 06/06/20 15:00 Albuterol 2.5 Mg/3 Ml Nebu IH Q3HRT PRN Shortness Of Breath Allopurinol 100 mg 06/07/20 10:00 06/15/20 09:56 Allopurinol 100 Mg Tab PO 100 mg QDAY YELENA Administration Calcium Carbonate/Glycine 500 mg 06/07/20 10:00 06/15/20 09:56 Calcium Carbonate 500 Mg Tab Chew PO 500 mg QDAY YELENA Administration Cholecalciferol 2,000 unit 06/07/20 10:00 06/15/20 09:56 Cholecalciferol (Vit D3) 1000 Unit (25 Mcg) Tab PO 2,000 unit QDAY YELENA Administration Cholestyramine Resin 4 gm 06/12/20 22:00 06/15/20 21:54 Cholestyramine (With Sugar) 4 Gm Packet PO 4 gm BID YELENA Administration Dicyclomine HCl 10 mg 06/06/20 20:00 06/15/20 21:54 Dicyclomine 10 Mg Cap PO 10 mg TID YELENA Administration Famotidine 20 mg 06/13/20 10:00 06/15/20 09:56 Famotidine 20 Mg Tab PO 20 mg QDAY YELENA Administration Magnesium Citrate 300 ml 06/06/20 16:20 Magnesium Citrate 300 Ml Oral Liqd PO QDAY PRN Constipation Metoprolol Tartrate 25 mg 06/09/20 22:00 06/15/20 21:51 Metoprolol Tartrate 25 Mg Tab PO 25 mg BID YELENA Administration Pravastatin Sodium 10 mg 06/06/20 22:00 06/15/20 21:51 Pravastatin 20 Mg Tab PO 10 mg QHS YELENA Administration Sodium Chloride 10 ml 06/06/20 15:00 06/15/20 21:57 Sodium Chloride 0.9% 10 Ml Flush Syringe IV 10 ml BID YELENA Administration Sodium Chloride 10 ml 06/06/20 15:00 Sodium Chloride 0.9% 10 Ml Flush Syringe IV PRN PRN LINE FLUSH Tamsulosin HCl 0.4 mg 06/14/20 11:00 06/15/20 09:56 Tamsulosin 0.4 Mg Cap PO 0.4 mg QDAY YELENA Administration Nutrition/Malnutrition Assess - Dietary Evaluation Nutrition/Malnutrition Findings: Nutrition Notes Start: 06/08/20 11:43 Freq: Status: Active Protocol: Document 06/13/20 14:44 CW (Rec: 06/13/20 14:57 CW [id number]) Nutrition Notes Initial or Follow up Reassessment Current Diagnosis Acute Kidney Injury,Diabetes, Hypertension Other Pertinent Diagnosis AMS, Dementia, UTI, metabolic encephalopathy, ?s/p CVA? Current Diet Mechanical soft diet + ONS BID Labs/Tests Na 146 BUN 38 Cr 1.4 K 3.0 Pertinent Medications D5 at 50 ml/hr K dur K3PO4 Height 5 ft 8 in Weight 77.1 kg Divide Body Weight (kg) 70.00 BMI 25.8 Weight Status Appropriate Subjective/Other Information F/U for intakes and ONS.Per tech pt refusing to eat solid foods but will drinK ONS. Will increase ONS.; Attempted to obtain preferences from pt but pt is pleasantly confused. Recommend appetite stimulant. Burn Absent Trauma Absent GI Symptoms Diarrhea Difficulty In Swallowing Skin Integrity/Comment Stage 1 pressure ulcer Current % PO Negligible Minimum of two criteria No Fluid Accumulation Mild (non-severe) #2 Nutrition Diagnosis Increased nutrient needs ( specify in comment below) Diagnosis Progress(for reassessment Continues documentation) #1 Nutrition Diagnosis Inadequate oral intake As Evidenced by Signs and Symptoms Pt not eating much of meals Diagnosis Progress(for reassessment Continues documentation) Is patient on ventilator? No Is Patient Ambulatory and/or Out of Bed Yes REE-([facility]-ambulatory/OOB) [ [id number] [id number]] Calculation Used for Recommendations [facility] Additional Notes protein needs: 62 - 153g (0.8 - 1.2g/kgBW for ISAAC) fluid needs: 1 ml/kcal Nutrition Intervention Change Diet Order: Continue Mechanical Soft Diet, ONS Add Supplement/Snack (indicate name/kcal Nepro TID /protein ) Provides kCal: 1,275 Provides Protein (gm) 57 Goal #1 Meet at least 75% of kcal and proteins via PO Goal #2 wound healing Anticipated Discharge Needs: Mechanical Soft diet + ONS PRN Follow-Up By: 06/16/20 Additional Comments F/U intakes and ONS tolerance
[2020-06-16] MEDS: DICYCLOMINE 10 MG CAP PO SCH ×3 (10:45→19:55)
[2020-06-16] MEDS: CHOLESTYRAMINE (WITH SUGAR) 4 GM PACKET PO SCH ×2 (10:45→22:29)
[2020-06-16] MEDS: TAMSULOSIN 0.4 MG CAP PO SCH (10:53)
[2020-06-16] MEDS: allopurinoL 100 MG TAB PO SCH (10:53)
[2020-06-16] MEDS: CHOLECALCIFEROL (VIT D3) 1000 UNIT (25 mcg) TAB PO SCH (10:53)
[2020-06-16] MEDS: METOPROLOL TARTRATE 25 MG TAB PO SCH ×2 (10:56→22:29)
[2020-06-16] MEDS: FAMOTIDINE 20 MG TAB PO SCH (10:57)
--- NOTE | 2020-06-16 12:14 | Progress Note ---
Assessment and Plan Cultures: Blood culture 06/06/2020 coagulase-negative staph 1 out of 4 Blood culture 06/08/2020 no growth today C. difficile PCR negative SARS-CoV-2 PCR negative Urine culture 06/07/2020 no growth Assessment: 80 years old male with history of dementia, CVA, debility, diabetes mellitus, secondary to few hours of unresponsiveness at breakfast at his assisted living facility: #Sepsis with septic shock: Resolved, remarkable improvement, off pressors; source UTI +/- colitis. Completed cefepime 5 days #Extensive colitis: remains with large foul smelling diarrhea. seen on CT ? ischemia. C diff neg #Coagulase-negative staph bacteremia: 1 out of 4 likely contaminant. #Acute hypoxemic respiratory failure: now on [place] O2. CXR clear. SARS-CoV-2 PCR negative. #UTI: with hematuria, urine culture no growth #Acute encephalopathy: due to sepsis> CT no acute changes. Resolved. #ISAAC: ? from sepsis, better #RVR A. fib: On amiodarone, cardiology on board #Thrombocytopenia: Monitor platelets, likely due to sepsis, resolved. Recommendations: -Avoid laxative -remove torres as feasible -monitor leukocytosis - resolved -Okay for discharge from ID standpoint when diarrhea improved. Narayan Rowley MD [facility] O: [phone] F: [phone] Subjective Date of service: 06/16/20 Principal diagnosis: shock Interval history: Afebrile, normal white count. Objective - Exam Narrative Exam: General appearance: Alert in NAD on NC O2 Eyes: anicteric sclerae, moist conjunctivae; no lid-lag; PERRLA HENT: Normocephalic, Atraumatic; normal external ears, nares open, oropharynx limited edentulous Neck: supple, tracheal midline, no JVD Lungs: Clear to auscultation bilaterally CV: RRR no murmur Abdomen: Soft, nontender, ventral hernia Extremities: no edema, no cyanosis Skin: No rash. Psych: no agitated Neuro: Alert, follows simple commands - Constitutional Vitals: Vital Signs Temp Pulse Resp BP Pulse Ox 98.2 F 88 18 150/54 97 06/16/20 08:11 06/16/20 10:56 06/16/20 08:11 06/16/20 10:56 06/16/20 08:11 Temperature -Last 24 Hours Temperature 98.2 F Temperature 98.0 F Temperature 98.0 F Temperature 98.2 F Temperature 99 F Temperature 99.2 F Temperature 98.0 F - Labs CBC & Chem 7: 06/15/20 06:31 06/16/20 04:40 Labs: Abnormal lab results 06/15/20 06/15/20 06/16/20 Range/Units 11:00 20:32 04:40 Chloride 109.3 H (98-107) mmol/L Carbon Dioxide 19 L (22-30) mmol/L BUN 21 H (9-20) mg/dL Creatinine 1.4 H (0.8-1.3) mg/dL POC Glucose 65 L (70-105) mg/dL Calcium 7.7 L (8.4-10.2) mg/dL Crossmatch See Detail
[2020-06-16 13:22] LABS: Hematocrit 27.3 % (35.5-45.6); Hemoglobin 9.3 gm/dl (11.8-15.2); Mean Corpuscular HGB Conc 34 % (32-34); Mean Corpuscular Volume 94 fl (84-94); Red Cell Distribution Width 14.2 % (13.2-15.2)
[2020-06-16 13:26] LABS: Platelet Count 107 K/mm3 (140-440)
--- NOTE | 2020-06-16 16:11 | Gastroenterology Progress Note ---
Assessment and Plan 1. GI: pt presented w/ shock now with colitis and loose stool - C. diff and other stool cx's negative - more alert w/ signs decreasing loose stools - antibiotics per ID - Continue current meds including Questran - continue po, advance as tolerated - no plans to scope at this time - when diarrhea stable ok to dc from GI standpoint, possibly tomorrow - will follow Subjective Date of service: 06/16/20 Principal diagnosis: shock Interval history: - reportedly decrease loose stools per staff, no other complaints Objective - Constitutional Vitals: Temp Pulse Resp BP Pulse Ox 97.8 F 89 16 144/56 97 06/16/20 11:56 06/16/20 11:56 06/16/20 11:56 06/16/20 11:56 06/16/20 11:56 General appearance: no acute distress - EENT Eyes: PERRL - Respiratory Respiratory: bilateral: rhonchi - Cardiovascular Rhythm: regular Heart Sounds: Present: S1 & S2 - Gastrointestinal General gastrointestinal: Present: soft, non-tender, non-distended - Labs CBC & Chem 7: 06/16/20 12:50 06/16/20 04:40 Labs: Laboratory Results - last 24 hr 06/15/20 06/15/20 06/15/20 11:00 16:35 20:32 WBC RBC Hgb Hct MCV MCH MCHC RDW Plt Count Sodium Potassium Chloride Carbon Dioxide Anion Gap BUN Creatinine Estimated GFR BUN/Creatinine Ratio Glucose POC Glucose 72 65 L Calcium Phosphorus Magnesium Blood Type O POSITIVE Antibody Screen Negative Crossmatch See Detail 06/15/20 06/16/20 06/16/20 21:50 01:20 04:40 WBC RBC Hgb Hct MCV MCH MCHC RDW Plt Count Sodium 138 Potassium 4.0 Chloride 109.3 H Carbon Dioxide 19 L Anion Gap 14 BUN 21 H Creatinine 1.4 H Estimated GFR 59 BUN/Creatinine Ratio 15 Glucose 77 POC Glucose 74 88 Calcium 7.7 L Phosphorus 2.70 D Magnesium 1.70 Blood Type Antibody Screen Crossmatch 06/16/20 06/16/20 06/16/20 08:09 10:14 11:54 WBC RBC Hgb Hct MCV MCH MCHC RDW Plt Count Sodium Potassium Chloride Carbon Dioxide Anion Gap BUN Creatinine Estimated GFR BUN/Creatinine Ratio Glucose POC Glucose 63 L 93 88 Calcium Phosphorus Magnesium Blood Type Antibody Screen Crossmatch 06/16/20 12:50 WBC 11.0 RBC 2.90 L Hgb 9.3 L Hct 27.3 L MCV 94 MCH 32 MCHC 34 RDW 14.2 Plt Count 107 L Sodium Potassium Chloride Carbon Dioxide Anion Gap BUN Creatinine Estimated GFR BUN/Creatinine Ratio Glucose POC Glucose Calcium Phosphorus Magnesium Blood Type Antibody Screen Crossmatch
[2020-06-16 19:18] LABS: Total Cells Counted 100
[2020-06-16 19:19] LABS: Band Neutrophils # (Manual) 2.2 K/mm3
[2020-06-16 19:21] LABS: Large Platelets Rare
[2020-06-16 19:22] LABS: Platelet Clumps Rare; Platelet Estimate Consistent w Auto; RBC Morphology Normal
[2020-06-16] MEDS: ACETAMINOPHEN 325 MG TAB PO PRN (19:53)
[2020-06-16] MEDS: SODIUM BICARBONATE 650 MG TAB PO SCH (19:55)
[2020-06-16] MEDS: PRAVASTATIN 20 MG TAB PO SCH (22:30)
[2020-06-17 06:07] LABS: Hematocrit 30.1 % (35.5-45.6); Hemoglobin 9.9 gm/dl (11.8-15.2); Mean Corpuscular HGB Conc 33 % (32-34); Mean Corpuscular Volume 99 fl (84-94); Platelet Count 122 K/mm3 (140-440); Red Blood Count 3.04 M/mm3 (3.65-5.03); Red Cell Distribution Width 14.4 % (13.2-15.2)
[2020-06-17] MEDS ORDERED: SODIUM CHLORIDE 0.9% 1000 ML 1,000 ML IV SCH (09:00)
[2020-06-17] MEDS ORDERED: SODIUM CHLORIDE 0.9% 1000 ML 1,000 ML IV ONE (09:00)
[2020-06-17] MEDS: SODIUM BICARBONATE 650 MG TAB PO SCH ×3 (09:20→21:59)
[2020-06-17] MEDS: DICYCLOMINE 10 MG CAP PO SCH ×3 (09:20→21:59)
[2020-06-17] MEDS: CHOLESTYRAMINE (WITH SUGAR) 4 GM PACKET PO SCH ×2 (10:10→21:58)
[2020-06-17] MEDS: FAMOTIDINE 20 MG TAB PO SCH (10:10)
[2020-06-17] MEDS: CHOLECALCIFEROL (VIT D3) 1000 UNIT (25 mcg) TAB PO SCH (10:11)
[2020-06-17] MEDS: METOPROLOL TARTRATE 25 MG TAB PO SCH ×2 (10:11→21:59)
[2020-06-17] MEDS: allopurinoL 100 MG TAB PO SCH (10:11)
[2020-06-17] MEDS: TAMSULOSIN 0.4 MG CAP PO SCH (10:11)
[2020-06-17] MEDS: CALCIUM CARBONATE 500 MG TAB CHEW PO SCH (10:11)
--- NOTE | 2020-06-17 11:18 | Progress Note ---
Assessment and Plan 1. Acute kidney injury: Vasomotor ISAAC in the setting of shock. Renal US ordered negative for hydro. Monitor renal function. Increase in the Creatinine level noted. IV fluids. Avoid nephrotoxic agents. Meds dosage based on GFR. 2. FEN: Hypernatremia, improved. Hypokalemia, improved, monitor. Metabolic acidosis, Sod bicarb, monitor. Monitor lytes and volume status. 3. Sepsis with shock: Currently off pressors. Monitor BP. 4. UTI: Abx per ID. 5. Acute hypoxemic respiratory failure: CXR clear. COVID test negative. NC O2 as needed. 6. Diarrhea: ?Colitis. C.diff negative. 7. Suspected R kidney mass: CT abdomen showed cyst. D/w patient's daughter to follow up in 2-3 weeks. 8. Metabolic encephalopathy: Monitor. 9. H/o Dementia: Supportive care. 10. H/o HTN: Monitor BP. 11. Anemia, POA: Monitor. Subjective: Patient was seen and examined at the bedside. No new complaint. Objective: General appearance: well-developed, appears stated age, not in distress HEENT: ATNC Neck: trachea midline Respiratory: ctab Heart: regular, S1S2, no murmur Gastrointestinal: soft, normoactive bowel sounds, not tender Integumentary: no rash, warm and dry Ext: no edema Neurologic: alert, not following any command, confusion noted Ext: trace edema : torres catheter Subjective Date of service: 06/17/20 Principal diagnosis: shock Objective - Vital Signs Vital signs: Vital Signs - 12hr 06/17/20 04:33 Temperature 98.2 F Pulse Rate 107 H Respiratory 20 Rate Blood Pressure 116/66 O2 Sat by Pulse 97 Oximetry - Lab 06/17/20 05:34 06/17/20 05:34 Most recent lab results ABG pH 7.329 pH Units (7.350-7.450) L 06/06/20 11:18 ABG pCO2 27.8 mm Hg 06/06/20 11:18 ABG pO2 258.1 mm Hg (80.0-90.0) H 06/06/20 11:18 ABG HCO3 14.3 mmol/L (20.0-26.0) L 06/06/20 11:18 ABG O2 Saturation 99.4 % (95.0-99.0) H 06/06/20 11:18 Calcium 8.0 mg/dL (8.4-10.2) L 06/17/20 05:34 Phosphorus 2.70 mg/dL (2.5-4.5) D 06/16/20 04:40 Magnesium 1.70 mg/dL (1.7-2.3) 06/16/20 04:40 Urine Creatinine 57.0 mg/dL (0.1-20.0) H 06/06/20 21:05 Urine Sodium 85 mmol/L 06/06/20 21:05 Medications & Allergies - Medications Allergies/Adverse Reactions: Allergies No Known Allergies Allergy (Verified 06/06/20 15:21) Home Medications: Home Medications Medication Instructions Recorded Confirmed Last Taken Type Amlodipine Besylate [Norvasc] 5 mg PO QDAY 06/06/20 06/06/20 Unknown History Bisacodyl [Women's Gentle Laxative] 5 mg PO BID 06/06/20 06/06/20 Unknown History Calcium Carb/Magnesium Hydrox 500 mg PO QDAY 06/06/20 06/06/20 Unknown History [Antacid 1000-200 mg Tab Chew] Cholecalciferol (Vitamin D3) 2,000 unit PO QDAY 06/06/20 06/06/20 Unknown History [Vitamin D3 2,000 UNIT CAP] Dextrose/Dextrin/Maltose 24 gm PO ONCE 06/06/20 06/06/20 Unknown History [Insta-Glucose Gel] Diclofenac 1% [Diclofenac 1% 100 gm TP QDAY 06/06/20 06/06/20 Unknown History topical gel] Dicyclomine [Bentyl] 10 mg PO TID 06/06/20 06/06/20 Unknown History Docusate Sodium [Colace] 100 mg PO BID PRN 06/06/20 06/06/20 Unknown History Furosemide [Lasix] 40 mg PO QDAY 06/06/20 06/06/20 Unknown History Insulin Lispro [Insulin Lispro 10 unit SQ TID 06/06/20 06/06/20 Unknown History Kwikpen U-100] Magnesium Citrate [Citroma] 296 ml PO QDAY 06/06/20 06/06/20 Unknown History Melatonin [Melatonin 3MG TAB] 6 mg PO QHS 06/06/20 06/06/20 Unknown History Oxycodone HCl/Acetaminophen 1 each PO QDAY 06/06/20 06/06/20 Unknown History [Oxycodone-Acetaminophen 10-325] Pantoprazole [Protonix] 40 mg PO QDAY 06/06/20 06/06/20 Unknown History Pioglitazone HCl [Actos] 30 mg PO QDAY 06/06/20 06/06/20 Unknown History Polyethylene Glycol 3350 [Gavilax] 10 gm PO QDAY 06/06/20 06/06/20 Unknown History Pravastatin Sodium [Pravastatin] 10 mg PO QHS 06/06/20 06/06/20 Unknown History Tamsulosin [Flomax] 0.4 mg PO QDAY 06/06/20 06/06/20 Unknown History allopurinoL [Zyloprim] 100 mg PO QDAY 06/06/20 06/06/20 Unknown History lisinopriL [Lisinopril] 20 mg PO QDAY 06/06/20 06/06/20 Unknown History Active Medications: Generic Name Dose Route Start Last Admin Trade Name Freq PRN Reason Stop Dose Admin Acetaminophen 650 mg 06/06/20 15:00 06/16/20 19:53 Acetaminophen 325 Mg Tab PO 650 mg Q6H PRN Administration Pain, Mild (1-3) Albuterol 2.5 mg 06/06/20 15:00 Albuterol 2.5 Mg/3 Ml Nebu IH Q3HRT PRN Shortness Of Breath Allopurinol 100 mg 06/07/20 10:00 06/17/20 10:11 Allopurinol 100 Mg Tab PO 100 mg QDAY YELENA Administration Calcium Carbonate/Glycine 500 mg 06/07/20 10:00 06/17/20 10:11 Calcium Carbonate 500 Mg Tab Chew PO 500 mg QDAY YELENA Administration Cholecalciferol 2,000 unit 06/07/20 10:00 06/17/20 10:11 Cholecalciferol (Vit D3) 1000 Unit (25 Mcg) Tab PO 2,000 unit QDAY YELENA Administration Cholestyramine Resin 4 gm 06/12/20 22:00 06/17/20 10:10 Cholestyramine (With Sugar) 4 Gm Packet PO 4 gm BID YELENA Administration Dicyclomine HCl 10 mg 06/06/20 20:00 06/17/20 09:20 Dicyclomine 10 Mg Cap PO 10 mg TID YELENA Administration Famotidine 20 mg 06/13/20 10:00 06/17/20 10:10 Famotidine 20 Mg Tab PO 20 mg QDAY YELENA Administration Sodium Chloride 1,000 mls @ 75 mls/hr 06/17/20 09:00 Nacl 0.9% 1000 Ml IV DIRECT YELENA Magnesium Citrate 300 ml 06/06/20 16:20 Magnesium Citrate 300 Ml Oral Liqd PO QDAY PRN Constipation Metoprolol Tartrate 25 mg 06/09/20 22:00 06/17/20 10:11 Metoprolol Tartrate 25 Mg Tab PO 25 mg BID YELENA Administration Pravastatin Sodium 10 mg 06/06/20 22:00 06/16/20 22:30 Pravastatin 20 Mg Tab PO 10 mg QHS YELENA Administration Sodium Bicarbonate 650 mg 06/16/20 20:00 06/17/20 09:20 Sodium Bicarbonate 650 Mg Tab PO 650 mg TID YELENA Administration Sodium Chloride 10 ml 06/06/20 15:00 06/17/20 10:11 Sodium Chloride 0.9% 10 Ml Flush Syringe IV 10 ml BID YELENA Administration Sodium Chloride 10 ml 06/06/20 15:00 Sodium Chloride 0.9% 10 Ml Flush Syringe IV PRN PRN LINE FLUSH Tamsulosin HCl 0.4 mg 06/14/20 11:00 06/17/20 10:11 Tamsulosin 0.4 Mg Cap PO 0.4 mg QDAY YELENA Administration
--- NOTE | 2020-06-17 12:42 | Discharge Summary ---
Providers - Providers Date of Admission: 06/06/20 14:32 Attending physician: ULISES WINTER MD 06/06/20 14:27 Consult to Physician [CONS] Stat Comment: Consulting Provider: GREG CARTWRIGHT Physician Instructions: Reason For Exam: Hyperkalemia, renal insufficiency 06/06/20 14:32 Consult to Physician [CONS] Routine Comment: Consulting Provider: ANA CRISTINA TEJEDA Physician Instructions: Reason For Exam: septic shock 06/07/20 09:36 Consult to Physician [CONS] Routine Comment: Consulting Provider: ANTHONY HERNANDEZ Physician Instructions: Reason For Exam: septic shock 06/07/20 09:39 Consult to Physician [CONS] Routine Comment: Consulting Provider: ANTHONY HERNANDEZ Physician Instructions: Reason For Exam: septic shock 06/08/20 08:47 Speech Therapy Evaluation and Treat [CONS] Urgent Reason For Exam: failed bedside swallow 06/08/20 12:38 Consult to Physician [CONS] Routine Comment: ousmane alfonso/david Consulting Provider: KENTRELL ROSA Physician Instructions: Reason For Exam: arrhythmia 06/09/20 11:14 Physical Therapy Evaluation and Treat [CONS] Routine Comment: Reason For Exam: evaluate and treat 06/09/20 21:06 Occupational Therapy Evaluate and Treat [CONS] Routine Comment: Reason For Exam: evaluate and treat 06/11/20 08:12 Consult to Physician [CONS] Routine Comment: Consulting Provider: LISA BARBOUR Physician Instructions: Reason For Exam: Colitis, likely ischemic 06/13/20 17:09 Physical Therapy Evaluation and Treat [CONS] Routine Comment: Eval for SNF Reason For Exam: Debility 06/15/20 09:00 Consult to Wound/ET Nurse [CONS] Routine Reason For Exam: woundre- eval for sacral area 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 Patient was found to have a ur inary tract infection complicated by sepsis and septic shock, acute kidney injury, toxic metabolic encephalopathy as well as metabolic acidosis. Patient was hypotensive with systolic blood pressures in the 50s and was initiated on vasopressor support in the emergency department. Patient was admitted to the hospital service with consults to nephrology and [facility]. Septic Shock Metabolic encephalopathy Coag negative Staphylococcus /4 bottles Urinary tract infection Possible ISCHEMIC COLITIS Acute hypoxic respiratory failure Acute kidney injury Metabolic acidosis Diarrhea Dementia Hypertension Anemia 06/07: Patient remains on dopamine, vasopressin and Levophed. Nephrology has started the patient on sodium bicarbonate drip for metabolic acidosis. Infectious disease initiated vancomycin in addition to the cefepime and ordered a C. difficile. 06/08: Patient has gram-positive cocci bacteremia in /4 bottles which grew to be coag negative staph coccus and he has repeat blood cultures in progress. Urine culture has no growth to date and he is on IV vancomycin and cefepime. Yesterday we ordered a C. difficile PCR which is pending. Patient had a moment of tachycardia into the 130s and a stat EKG was obtained. Patient was given amiodarone bolus by [facility] and cardiology was consulted. Patient is hyperchloremic today however his metabolic acidosis and BUN/creatinine is slightly improved to 93/3.2 from 100/3.6 and his repeat lactic acid is 1.5. At the time my examination patient was on Levophed at 6, vasopressin 0.03 and dopamine at 6. This morning patient failed his swallow eval and ST evaluation was ordered. Of note patient's echocardiogram shows reduced 15 to 20% with borderline left ventricular hypertrophy. 06/09: This morning his speech evaluation was completed and he has been cleared for mechanical soft diet with thin liquids. Patient complained of right-sided chest pain with radiation to shoulders and a stat EKG cardiac enzymes were ordered. Patient was recultured yesterday and those have no growth to date and his vancomycin was stopped. Infectious disease team recommends removal of Torres catheter when feasible and a CT abdomen/pelvis when stable. Patient has been cleared to transfer to the floor by cardiology and [facility]. 06/10/2020; patient is on IV cefepime for sepsis due to UTI day 3 out of 5. Vancomycin discontinued. Patient is complaining pleuritic chest pain. Patient was evaluated by cardiology for elevated troponin and episode of A. fib on admission. Cardiology discontinued amiodarone and put her on Lopressor. Cardiology recommend against anticoagulation because of patient's anemia. Hemoglobin this morning was 7.4 and anemia work-up is in progress. I did ordered CT abdomen and pelvis. PT OT evaluation. Patient has ISAAC and nephrology is following. Patient has rectal tube and liquid stool in the bag. I ordered stool for C. difficile. We will continue to monitor. 06/11/2020; patient is on cefepime day 4/5. CT abdomen and pelvis was done and significant for colitis, ischemic colitis is possibility given hypotension and elevated lactic acid level. I will consult GI. Patient has episode of A. fib for less than 24 hours, cardiology was consulted and recommend to be on Lopressor. No need for coagulation because of his anemia. Hemoglobin this morning is improved to 8. Anemia work-up was done, no iron deficiency anemia identified. ISAAC is improving. C. difficile was negative. 06/12/2020; continue cefepime per ID recommendation. CT abdomen and pelvis is significant for ischemic colitis likely due to septic shock, hypotension. Patient was seen by GI and recommend no further intervention at this time. Patient had episode of A. fib on admission for less than 24 hours and cardiology recommend to continue on Lopressor, no anticoagulation needed. Hemoglobin is improving. Patient came from assisted living facility. Patient need Covid test before discharge. ISAAC is improving. Creatinine this morning was 1.7. Nephrology is following. OT evaluated and recommend subacute rehab, PT evaluation is pending. 06/13: Replace K and Mag, continue to monitor renal fuction, Continue abx per ID, c.diff negative. patient still with Rectal tube and Torres but will re- evaluate for possible discontinuation. Questran started by GI. Will continue to monitor and replace electrolytes Discussed with nursing staff to change torres to condom catheter CM to try and ascertain patients functional status prior to hospitalization 06/14: Patient showing some clinical improvement Torres replaced due to urinary retention about 1000 cc of clear urine removed. Flomax started. PT OT consulted as patient is noted to have been ambulatory prior to this admission will likely need SNF placement. Diarrhea consistency is improving anticipate d ischarge in 24 to 48 hours once approval is obtained. Cardiology input is noted Lopressor 25 mg p.o. twice daily possible addition of SABIHA inhibitor or ARB when okay with nephrology as regular this is a is improving. At this time no AC for A. fib management due to anemia and the transient nature of the A. fib which was less than 24 hours. 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 Unknown etiology or chronicity of these diagnoses. No current clinical evidence of acutely decompensated HF. Per [facility] records, pt saw [facility] in 1998 and underwent LHC which did not show any significant findings. Continue with conservative cardiac management given pt's advanced age, dementia and multiple co-morbidities. Recommend pt follow up in our office with Dr. Rosa within 2 weeks of discharge ([phone]). 06/15: Continue supportive care. Will give a unit of PRBC and anticipate discharge today or tomorrow once approval from insurance company obtained. PATIENT will need urology follow up outpatient and also cardiology outpatient. Discussed with patient and Case management Continue PT OT 06/16: Still awaiting prior approval from the insurance company for patient to be discharged. Continue supportive care thrombocytopenia noted again antiplatelets are on hold. We will continue to monitor anticipate discharge once prior authorization is received from insurance company. Continue rehab therapy while in house 06/17: Disposition: [id number] SN[facility] Time spent for discharge: 35 mins Exam - Physical Exam Narrative exam: Not in cardiopulmonary distress. The patient appeared well nourished and normally developed. Vital signs as documented. Head exam is unremarkable. No scleral icterus . Neck is without jugular venous distension, thyromegaly, or carotid bruits. Lungs are clear to auscultation. Cardiac exam reveals regular rate and Rhythm. Abdominal exam reveals normal bowel sounds, nontender, no organomegaly. Rectal tube in place. Extremities are with plus 1 pitting edeam in upper and lower ext and both femoral and pedal pulses are normal. 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, cooperative, severely demented - Constitutional Vitals: Temp Pulse Resp BP Pulse Ox 98.2 F 107 H 20 116/66 97 06/17/20 04:33 06/17/20 10:00 06/17/20 04:33 06/17/20 04:33 06/17/20 04:33 Plan Activity: advance as tolerated, fall precautions Diet: renal Special Instructions: record daily weights, record daily BP diary Plan of Treatment: follow with urology for removal of torres Follow up with: ALEKSANDRA PAIZ MD [Staff Physician] - 7 Days ROWENA GARRETT MD [Staff Physician] - 7 Days [facility]IMARY [facility]ARE, [Primary Care Provider] - 3-5 Days KENTRELL ROSA MD [Staff Physician] - 14 Days Prescriptions: Tamsulosin [Flomax] 0.4 mg PO QDAY #30 capsule Metoprolol [Lopressor TAB] 25 mg PO BID #60 tablet Famotidine [Pepcid] 20 mg PO QDAY #30 tablet Cholestyramine (with Sugar) [Questran] 4 gm PO BID #60 packet Sodium Bicarbonate 650 mg PO TID #30 tablet
[2020-06-17 14:15] LABS: Calcium 7.5 mg/dL (8.4-10.2)
--- NOTE | 2020-06-17 14:43 | Progress Note ---
Assessment and Plan Cultures: Blood culture 06/06/2020 coagulase-negative staph 1 out of 4 Blood culture 06/08/2020 no growth today C. difficile PCR negative SARS-CoV-2 PCR negative Urine culture 06/07/2020 no growth Assessment: 80 years old male with history of dementia, CVA, debility, diabetes mellitus, secondary to few hours of unresponsiveness at breakfast at his assisted living facility: #Sepsis with septic shock: Resolved, remarkable improvement, off pressors; source UTI +/- colitis. Completed cefepime 5 days #Extensive colitis: remains with large foul smelling diarrhea. seen on CT ? ischemia. C diff neg #Coagulase-negative staph bacteremia: 1 out of 4 likely contaminant. #Acute hypoxemic respiratory failure: now on NC O2. CXR clear. SARS-CoV-2 PCR negative. #UTI: with hematuria, urine culture no growth #Acute encephalopathy: due to sepsis> CT no acute changes. Resolved. #ISACA: ? from sepsis, better #RVR A. fib: On amiodarone, cardiology on board #Thrombocytopenia: Monitor platelets, likely due to sepsis, resolved. Recommendations: -Avoid laxative -remove torres as feasible -monitor leukocytosis - resolved -Okay for discharge from ID standpoint when diarrhea improved. Narayan Rowley MD [facility], [place], [facility] O: [phone] F: [phone] Subjective Date of service: 06/17/20 Principal diagnosis: shock Interval history: Febrile to 102.8 last night, otherwise afebrile. Normal white count. Objective - Exam Narrative Exam: General appearance: Alert in NAD on NC O2 Eyes: anicteric sclerae, moist conjunctivae; no lid-lag; PERRLA HENT: Normocephalic, Atraumatic; normal external ears, nares open, oropharynx limited edentulous Neck: supple, tracheal midline, no JVD Lungs: Clear to auscultation bilaterally CV: RRR no murmur Abdomen: Soft, nontender, ventral hernia Extremities: no edema, no cyanosis Skin: No rash. Psych: no agitated Neuro: Alert, follows simple commands - Constitutional Vitals: Vital Signs Temp Pulse Resp BP Pulse Ox 98.6 F 107 H 18 139/55 95 06/17/20 08:26 06/17/20 10:00 06/17/20 08:26 06/17/20 08:26 06/17/20 08:26 Temperature -Last 24 Hours Temperature 98.6 F Temperature 98.2 F Temperature 99.7 F Temperature 99.7 F Temperature 102.8 F Temperature 99.8 F - Labs CBC & Chem 7: 06/17/20 05:34 06/17/20 12:40 Labs: Abnormal lab results 06/16/20 06/16/20 06/16/20 Range/Units 12:50 15:55 21:17 RBC (3.65-5.03) M/mm3 Hgb (11.8-15.2) gm/dl Hct (35.5-45.6) % MCV (84-94) fl MCH (28-32) pg Plt Count (140-440) K/mm3 Lymphocytes % (Manual) 6.0 L (13.4-35.0) % Monocytes % (Manual) 9.0 H (0.0-7.3) % Lymphocytes # (Manual) 0.7 L (1.2-5.4) K/mm3 Monocytes # (Manual) 1.0 H (0.0-0.8) K/mm3 Potassium (3.6-5.0) mmol/L Chloride (98-107) mmol/L Carbon Dioxide (22-30) mmol/L BUN (9-20) mg/dL Creatinine (0.8-1.3) mg/dL Glucose (75-100) mg/dL POC Glucose 131 H 113 H (70-105) mg/dL Calcium (8.4-10.2) mg/dL 06/17/20 06/17/20 06/17/20 Range/Units 05:34 05:34 08:24 RBC 3.04 L (3.65-5.03) M/mm3 Hgb 9.9 L (11.8-15.2) gm/dl Hct 30.1 L (35.5-45.6) % MCV 99 H (84-94) fl MCH 33 H (28-32) pg Plt Count 122 L (140-440) K/mm3 Lymphocytes % (Manual) (13.4-35.0) % Monocytes % (Manual) (0.0-7.3) % Lymphocytes # (Manual) (1.2-5.4) K/mm3 Monocytes # (Manual) (0.0-0.8) K/mm3 Potassium (3.6-5.0) mmol/L Chloride (98-107) mmol/L Carbon Dioxide 18 L (22-30) mmol/L BUN 28 H (9-20) mg/dL Creatinine 1.6 H (0.8-1.3) mg/dL Glucose 112 H (75-100) mg/dL POC Glucose 107 H (70-105) mg/dL Calcium 8.0 L (8.4-10.2) mg/dL 06/17/20 06/17/20 Range/Units 12:22 12:40 RBC (3.65-5.03) M/mm3 Hgb (11.8-15.2) gm/dl Hct (35.5-45.6) % MCV (84-94) fl MCH (28-32) pg Plt Count (140-440) K/mm3 Lymphocytes % (Manual) (13.4-35.0) % Monocytes % (Manual) (0.0-7.3) % Lymphocytes # (Manual) (1.2-5.4) K/mm3 Monocytes # (Manual) (0.0-0.8) K/mm3 Potassium 6.2 H* D (3.6-5.0) mmol/L Chloride 111.2 H (98-107) mmol/L Carbon Dioxide 16 L (22-30) mmol/L BUN 35 H (9-20) mg/dL Creatinine 1.6 H (0.8-1.3) mg/dL Glucose 124 H (75-100) mg/dL POC Glucose 117 H (70-105) mg/dL Calcium 7.5 L (8.4-10.2) mg/dL
--- NOTE | 2020-06-17 15:29 | Gastroenterology Progress Note ---
Assessment and Plan 1. GI: pt presented w/ shock now with colitis and loose stool - C. diff and other stool cx's negative - more alert w/ signs decreasing loose stools - antibiotics per ID - Continue current meds including Questran - continue po, advance as tolerated - no plans to scope at this time - advance diet as tolerated - ok to dc Subjective Date of service: 06/17/20 Principal diagnosis: shock Interval history: - continue improvement in diarrhea per staff Objective - Constitutional Vitals: Temp Pulse Resp BP Pulse Ox 98.6 F 107 H 18 139/55 95 06/17/20 08:26 06/17/20 10:00 06/17/20 08:26 06/17/20 08:26 06/17/20 08:26 General appearance: no acute distress - EENT Eyes: PERRL - Respiratory Respiratory: bilateral: CTA - Cardiovascular Rhythm: regular Heart Sounds: Present: S1 & S2 - Gastrointestinal General gastrointestinal: Present: soft, non-tender, non-distended - Labs CBC & Chem 7: 06/17/20 05:34 06/17/20 12:40 Labs: Laboratory Results - last 24 hr 06/16/20 06/16/20 06/16/20 12:50 15:55 21:17 WBC RBC Hgb Hct MCV MCH MCHC RDW Plt Count Add Manual Diff Complete Total Counted 100 Seg Neuts % (Manual) 65.0 Band Neutrophils % 20.0 Lymphocytes % (Manual) 6.0 L Monocytes % (Manual) 9.0 H Nucleated RBC % Not Reportable Seg Neutrophils # Man 7.2 Band Neutrophils # 2.2 Lymphocytes # (Manual) 0.7 L Abs React Lymphs (Man) 0.0 Monocytes # (Manual) 1.0 H Eosinophils # (Manual) 0.0 Basophils # (Manual) 0.0 Metamyelocytes # 0.0 Myelocytes # 0.0 Promyelocytes # 0.0 Blast Cells # 0.0 WBC Morphology Not Reportable Hypersegmented Neuts Not Reportable Hyposegmented Neuts Not Reportable Hypogranular Neuts Not Reportable Smudge Cells Not Reportable Toxic Granulation Not Reportable Toxic Vacuolation Not Reportable Dohle Bodies Not Reportable Pelger-Huet Anomaly Not Reportable Denys Rods Not Reportable Platelet Estimate Consistent w auto Clumped Platelets Rare Plt Clumps, EDTA Not Reportable Large Platelets Rare Giant Platelets Not Reportable Platelet Satelliting Not Reportable Plt Morphology Comment Not Reportable RBC Morphology Normal Dimorphic RBCs Not Reportable Polychromasia Not Reportable Hypochromasia Not Reportable Poikilocytosis Not Reportable Anisocytosis Not Reportable Microcytosis Not Reportable Macrocytosis Not Reportable Spherocytes Not Reportable Pappenheimer Bodies Not Reportable Sickle Cells Not Reportable Target Cells Not Reportable Tear Drop Cells Not Reportable Ovalocytes Not Reportable Helmet Cells Not Reportable Brenner-[place] Bodies Not Reportable Andrews Rings Not Reportable [place] Cells Not Reportable Bite Cells Not Reportable Crenated Cell Not Reportable Elliptocytes Not Reportable Acanthocytes (Spur) Not Reportable Rouleaux Not Reportable Hemoglobin C Crystals Not Reportable Schistocytes Not Reportable Malaria parasites Not Reportable Chance Bodies Not Reportable Hem Pathologist Commnt No Sodium Potassium Chloride Carbon Dioxide Anion Gap BUN Creatinine Estimated GFR BUN/Creatinine Ratio Glucose POC Glucose 131 H 113 H Calcium 06/17/20 06/17/20 06/17/20 05:34 05:34 08:24 WBC 5.8 RBC 3.04 L Hgb 9.9 L Hct 30.1 L MCV 99 H MCH 33 H MCHC 33 RDW 14.4 Plt Count 122 L Add Manual Diff Total Counted Seg Neuts % (Manual) Band Neutrophils % Lymphocytes % (Manual) Monocytes % (Manual) Nucleated RBC % Seg Neutrophils # Man Band Neutrophils # Lymphocytes # (Manual) Abs React Lymphs (Man) Monocytes # (Manual) Eosinophils # (Manual) Basophils # (Manual) Metamyelocytes # Myelocytes # Promyelocytes # Blast Cells # WBC Morphology Hypersegmented Neuts Hyposegmented Neuts Hypogranular Neuts Smudge Cells Toxic Granulation Toxic Vacuolation Dohle Bodies Pelger-Huet Anomaly Denys Rods Platelet Estimate Clumped Platelets Plt Clumps, EDTA Large Platelets Giant Platelets Platelet Satelliting Plt Morphology Comment RBC Morphology Dimorphic RBCs Polychromasia Hypochromasia Poikilocytosis Anisocytosis Microcytosis Macrocytosis Spherocytes Pappenheimer Bodies Sickle Cells Target Cells Tear Drop Cells Ovalocytes Helmet Cells Brenner-[place] Bodies Andrews Rings Flat Top Cells Bite Cells Crenated Cell Elliptocytes Acanthocytes (Spur) Rouleaux Hemoglobin C Crystals Schistocytes Malaria parasites Chance Bodies Hem Pathologist Commnt Sodium 139 Potassium 4.4 Chloride 106.6 Carbon Dioxide 18 L Anion Gap 19 BUN 28 H Creatinine 1.6 H Estimated GFR 51 BUN/Creatinine Ratio 18 Glucose 112 H POC Glucose 107 H Calcium 8.0 L 06/17/20 06/17/20 12:22 12:40 WBC RBC Hgb Hct MCV MCH MCHC RDW Plt Count Add Manual Diff Total Counted Seg Neuts % (Manual) Band Neutrophils % Lymphocytes % (Manual) Monocytes % (Manual) Nucleated RBC % Seg Neutrophils # Man Band Neutrophils # Lymphocytes # (Manual) Abs React Lymphs (Man) Monocytes # (Manual) Eosinophils # (Manual) Basophils # (Manual) Metamyelocytes # Myelocytes # Promyelocytes # Blast Cells # WBC Morphology Hypersegmented Neuts Hyposegmented Neuts Hypogranular Neuts Smudge Cells Toxic Granulation Toxic Vacuolation Dohle Bodies Pelger-Huet Anomaly Denys Rods Platelet Estimate Clumped Platelets Plt Clumps, EDTA Large Platelets Giant Platelets Platelet Satelliting Plt Morphology Comment RBC Morphology Dimorphic RBCs Polychromasia Hypochromasia Poikilocytosis Anisocytosis Microcytosis Macrocytosis Spherocytes Pappenheimer Bodies Sickle Cells Target Cells Tear Drop Cells Ovalocytes Helmet Cells Brenner-[place] Bodies Andrews Rings Dom Cells Bite Cells Crenated Cell Elliptocytes Acanthocytes (Spur) Rouleaux Hemoglobin C Crystals Schistocytes Malaria parasites Chance Bodies Hem Pathologist Commnt Sodium 139 Potassium 6.2 H* D Chloride 111.2 H Carbon Dioxide 16 L Anion Gap 18 BUN 35 H Creatinine 1.6 H Estimated GFR 51 BUN/Creatinine Ratio 22 Glucose 124 H POC Glucose 117 H Calcium 7.5 L
[2020-06-17] MEDS ORDERED: INSULIN REGULAR, HUMAN 100 UNITS/1 ML IV ONE (16:00)
[2020-06-17] MEDS ORDERED: SODIUM BICARB 8.4% 50 MEQ/50 ML SYRINGE IV ONE (16:00)
[2020-06-17] MEDS ORDERED: DEXTROSE 50% IN WATER (25GM) 50 ML SYRINGE IV ONE (16:00)
[2020-06-17] MEDS ORDERED: SODIUM POLYSTYRENE 15 GM/60 ML ORAL LIQD PO ONE (16:00)
--- NOTE | 2020-06-17 19:36 | Progress Note ---
Assessment and Plan Assessment and plan: This is a 80-year-old male who is a resident of assisted living facility with vascular dementia, cerebral sclerosis, debility, diabetes mellitus who presents to the emergency department on 06/06 with complaints of lethargy and diminished cognition as per daughter he developed an episode of unresponsiveness while at breakfast at at his assisted living facility. Patient was found to have a urinary tract infection complicated by sepsis and septic shock, acute kidney injury, toxic metabolic encephalopathy as well as metabolic acidosis. Patient was hypotensive with systolic blood pressures in the 50s and was initiated on vasopressor support in the emergency department. Patient was admitted to the hospital service with consults to nephrology and [facility]. Septic Shock Metabolic encephalopathy Coag negative Staphylococcus / bottles Urinary tract infection Possible ISCHEMIC COLITIS Acute hypoxic respiratory failure Acute kidney injury Metabolic acidosis persist Diarrhea Dementia Hypertension Anemia 06/07: Patient remains on dopamine, vasopressin and Levophed. Nephrology has started the patient on sodium bicarbonate drip for metabolic acidosis. Infectious disease initiated vancomycin in addition to the cefepime and ordered a C. difficile. 06/08: Patient has gram-positive cocci bacteremia in 03/07 bottles which grew to be coag negative staph coccus and he has repeat blood cultures in progress. Urine culture has no growth to date and he is on IV vancomycin and cefepime. Yesterday we ordered a C. difficile PCR which is pending. Patient had a moment of tachycardia into the 130s and a stat EKG was obtained. Patient was given amiodarone bolus by [facility] and cardiology was consulted. Patient is hyperchloremic today however his metabolic acidosis and BUN/creatinine is slightly improved to 93/3.2 from 100/3.6 and his repeat lactic acid is 1.5. At the time my examination patient was on Levophed at 6, vasopressin 0.03 and dopamine at 6. This morning patient failed his swallow eval and ST evaluation was ordered. Of note patient's echocardiogram shows reduced 15 to 20% with borderline left ventricular hypertrophy. 06/09: This morning his speech evaluation was completed and he has been cleared for mechanical soft diet with thin liquids. Patient complained of right-sided chest pain with radiation to shoulders and a stat EKG cardiac enzymes were ordered. Patient was recultured yesterday and those have no growth to date and his vancomycin was stopped. Infectious disease team recommends removal of Torres catheter when feasible and a CT abdomen/pelvis when stable. Patient has been cl eared to transfer to the floor by cardiology and [facility]. 06/10/2020; patient is on IV cefepime for sepsis due to UTI day 3 out of 5. Vancomycin discontinued. Patient is complaining pleuritic chest pain. Patient was evaluated by cardiology for elevated troponin and episode of A. fib on admission. Cardiology discontinued amiodarone and put her on Lopressor. Cardiology recommend against anticoagulation because of patient's anemia. Hemoglobin this morning was 7.4 and anemia work-up is in progress. I did ordered CT abdomen and pelvis. PT OT evaluation. Patient has ISAAC and nephrology is following. Patient has rectal tube and liquid stool in the bag. I ordered stool for C. difficile. We will continue to monitor. 06/11/2020; patient is on cefepime day 06/06. CT abdomen and pelvis was done and significant for colitis, ischemic colitis is possibility given hypotension and elevated lactic acid level. I will consult GI. Patient has episode of A. fib for less than 24 hours, cardiology was consulted and recommend to be on Lopressor. No need for coagulation because of his anemia. Hemoglobin this morning is improved to 8. Anemia work-up was done, no iron deficiency anemia identified. ISAAC is improving. C. difficile was negative. 06/12/2020; continue cefepime per ID recommendation. CT abdomen and pelvis is significant for ischemic colitis likely due to septic shock, hypotension. Patient was seen by GI and recommend no further intervention at this time. Patient had episode of A. fib on admission for less than 24 hours and cardiology recommend to continue on Lopressor, no anticoagulation needed. Hemoglobin is improving. Patient came from assisted living facility. Patient need Covid test before discharge. ISAAC is improving. Creatinine this morning was 1.7. Nephrology is following. OT evaluated and recommend subacute rehab, PT evaluation is pending. 06/13: Replace K and Mag, continue to monitor renal fuction, Continue abx per ID, c.diff negative. patient still with Rectal tube and Torres but will re- evaluate for possible discontinuation. Questran started by GI. Will continue to monitor and replace electrolytes Discussed with nursing staff to change torres to condom catheter CM to try and ascertain patients functional status prior to hospitalization 06/14: Patient showing some clinical improvement Torres replaced due to urinary retention about 1000 cc of clear urine removed. Flomax started. PT OT consulted as patient is noted to have been ambulatory prior to this admission will likely need SNF placement. Diarrhea consistency is improving anticipate discharge in 24 to 48 hours once approval is obtained. Cardiology input is noted Lopressor 25 mg p.o. twice daily possible addition of SABIHA inhibitor or ARB when okay with nephrology as regular this is a is improving. At this time no AC for A. fib management due to anemia and the transient nature of the A. fib which was less than 24 hours. 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 Unknown etiology or chronicity of these diagnoses. No current clinical evidence of acutely decompensated HF. Per [facility] records, pt saw [facility]ology in 1998 and underwent LHC which did not show any significant findings. Continue with conservative cardiac management given pt's advanced age, dementia and multiple co-morbidities. Recommend pt follow up in our office with Dr. Rosa within 2 weeks of discharge ([phone]). 06/15: Continue supportive care. Will give a unit of PRBC and anticipate discharge today or tomorrow once approval from insurance company obtained. PATIENT will need urology follow up outpatient and also cardiology outpatient. Discussed with patient and Case management Continue PT OT 06/16: Still awaiting prior approval from the insurance company for patient to be discharged. Continue supportive care thrombocytopenia noted again antiplatelets are on hold. We will continue to monitor anticipate discharge once prior authorization is received from insurance [employer]. Continue rehab therapy while in house 06/17: Severe hyperkalemia noted in the setting of renal dysfunction. Will hold discharge. Also patient with intermittent fevers culture still on resolved. Bolus of fluid given will also give some Kayexalate to correct hyperkalemia. History Interval history: Patient seen and examined, no new complaints discharge was possible held due to electrolyte abnormalities including severe hypokalemia Hospitalist Physical - Physical exam Narrative exam: Not in cardiopulmonary distress. The patient appeared well nourished and normally developed. Vital signs as documented. Head exam is unremarkable. No scleral icterus . Neck is without jugular venous distension, thyromegaly, or carotid bruits. Lungs are clear to auscultation. Cardiac exam reveals regular rate and Rhythm. Abdominal exam reveals normal bowel sounds, nontender, no organomegaly. Rectal tube in place. Extremities are with plus 1 pitting edeam in upper and lower ext and both femoral and pedal pulses are normal. 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 - Constitutional Vitals: Temp Pulse Resp BP Pulse Ox 98.6 F 97 H 16 124/66 95 06/17/20 17:10 06/17/20 17:10 06/17/20 17:10 06/17/20 17:10 06/17/20 17:10 General appearance: Present: no acute distress, well-nourished HEART Score - HEART Score Troponin: Troponin T 0.170 ng/mL (0.00-0.029) H* D 06/11/20 05:30 Results - Labs CBC & Chem 7: 06/17/20 05:34 06/17/20 18:49 Labs: Laboratory Last Values WBC 5.8 K/mm3 (4.5-11.0) 06/17/20 05:34 RBC 3.04 M/mm3 (3.65-5.03) L 06/17/20 05:34 Hgb 9.9 gm/dl (11.8-15.2) L 06/17/20 05:34 Hct 30.1 % (35.5-45.6) L 06/17/20 05:34 MCV 99 fl (84-94) H 06/17/20 05:34 MCH 33 pg (28-32) H 06/17/20 05:34 MCHC 33 % (32-34) 06/17/20 05:34 RDW 14.4 % (13.2-15.2) 06/17/20 05:34 Plt Count 122 K/mm3 (140-440) L 06/17/20 05:34 Lymph % (Auto) 6.8 % (13.4-35.0) L 06/13/20 06:13 Frederick % (Auto) 5.0 % (0.0-7.3) 06/13/20 06:13 Eos % (Auto) 1.7 % (0.0-4.3) 06/13/20 06:13 Baso % (Auto) 0.2 % (0.0-1.8) 06/13/20 06:13 Lymph # (Auto) 0.9 K/mm3 (1.2-5.4) L 06/13/20 06:13 Frederick # (Auto) 0.7 K/mm3 (0.0-0.8) 06/13/20 06:13 Eos # (Auto) 0.2 K/mm3 (0.0-0.4) 06/13/20 06:13 Baso # (Auto) 0.0 K/mm3 (0.0-0.1) 06/13/20 06:13 Add Manual Diff Complete 06/16/20 12:50 Total Counted 100 06/16/20 12:50 Seg Neutrophils % 86.3 % (40.0-70.0) H 06/13/20 06:13 Seg Neuts % (Manual) 65.0 % (40.0-70.0) 06/16/20 12:50 Band Neutrophils % 20.0 % 06/16/20 12:50 Lymphocytes % (Manual) 6.0 % (13.4-35.0) L 06/16/20 12:50 Reactive Lymphs % (Man) 1.0 % 06/12/20 05:24 Monocytes % (Manual) 9.0 % (0.0-7.3) H 06/16/20 12:50 Eosinophils % (Manual) 2.0 % (0.0-4.3) 06/12/20 05:24 Nucleated RBC % Not Reportable 06/16/20 12:50 Seg Neutrophils # 11.9 K/mm3 (1.8-7.7) H 06/13/20 06:13 Seg Neutrophils # Man 7.2 K/mm3 (1.8-7.7) 06/16/20 12:50 Band Neutrophils # 2.2 K/mm3 06/16/20 12:50 Lymphocytes # (Manual) 0.7 K/mm3 (1.2-5.4) L 06/16/20 12:50 Abs React Lymphs (Man) 0.0 K/mm3 06/16/20 12:50 Monocytes # (Manual) 1.0 K/mm3 (0.0-0.8) H 06/16/20 12:50 Eosinophils # (Manual) 0.0 K/mm3 (0.0-0.4) 06/16/20 12:50 Basophils # (Manual) 0.0 K/mm3 (0.0-0.1) 06/16/20 12:50 Metamyelocytes # 0.0 K/mm3 06/16/20 12:50 Myelocytes # 0.0 K/mm3 06/16/20 12:50 Promyelocytes # 0.0 K/mm3 06/16/20 12:50 Blast Cells # 0.0 K/mm3 06/16/20 12:50 WBC Morphology Not Reportable 06/16/20 12:50 Hypersegmented Neuts Not Reportable 06/16/20 12:50 Hyposegmented Neuts Not Reportable 06/16/20 12:50 Hypogranular Neuts Not Reportable 06/16/20 12:50 Smudge Cells Not Reportable 06/16/20 12:50 Toxic Granulation Not Reportable 06/16/20 12:50 Toxic Vacuolation Not Reportable 06/16/20 12:50 Dohle Bodies Not Reportable 06/16/20 12:50 Pelger-Huet Anomaly Not Reportable 06/16/20 12:50 Denys Rods Not Reportable 06/16/20 12:50 Platelet Estimate Consistent w auto 06/16/20 12:50 Clumped Platelets Rare 06/16/20 12:50 Plt Clumps, EDTA Not Reportable 06/16/20 12:50 Large Platelets Rare 06/16/20 12:50 Giant Platelets Not Reportable 06/16/20 12:50 Platelet Satelliting Not Reportable 06/16/20 12:50 Plt Morphology Comment Not Reportable 06/16/20 12:50 RBC Morphology Normal 06/16/20 12:50 Dimorphic RBCs Not Reportable 06/16/20 12:50 Polychromasia Not Reportable 06/16/20 12:50 Hypochromasia Not Reportable 06/16/20 12:50 Poikilocytosis Not Reportable 06/16/20 12:50 Anisocytosis Not Reportable 06/16/20 12:50 Microcytosis Not Reportable 06/16/20 12:50 Macrocytosis Not Reportable 06/16/20 12:50 Spherocytes Not Reportable 06/16/20 12:50 Pappenheimer Bodies Not Reportable 06/16/20 12:50 Sickle Cells Not Reportable 06/16/20 12:50 Target Cells Not Reportable 06/16/20 12:50 Tear Drop Cells Not Reportable 06/16/20 12:50 Ovalocytes Not Reportable 06/16/20 12:50 Helmet Cells Not Reportable 06/16/20 12:50 Brenner-Leota Bodies Not Reportable 06/16/20 12:50 Kirkland Rings Not Reportable 06/16/20 12:50 Dom Cells Not Reportable 06/16/20 12:50 Bite Cells Not Reportable 06/16/20 12:50 Crenated Cell Not Reportable 06/16/20 12:50 Elliptocytes Not Reportable 06/16/20 12:50 Acanthocytes (Spur) Not Reportable 06/16/20 12:50 Rouleaux Not Reportable 06/16/20 12:50 Hemoglobin C Crystals Not Reportable 06/16/20 12:50 Schistocytes Not Reportable 06/16/20 12:50 Malaria parasites Not Reportable 06/16/20 12:50 Chance Bodies Not Reportable 06/16/20 12:50 Hem Pathologist Commnt No 06/16/20 12:50 PT 16.3 Sec. (12.2-14.9) H 06/06/20 10:19 INR 1.33 (0.87-1.13) H 06/06/20 10:19 APTT 31.6 Sec. (24.2-36.6) 06/06/20 10:19 ABG pH 7.329 pH Units (7.350-7.450) L 06/06/20 11:18 ABG pCO2 27.8 mm Hg 06/06/20 11:18 ABG pO2 258.1 mm Hg (80.0-90.0) H 06/06/20 11:18 ABG HCO3 14.3 mmol/L (20.0-26.0) L 06/06/20 11:18 ABG O2 Saturation 99.4 % (95.0-99.0) H 06/06/20 11:18 ABG O2 Content 13.2 (0.0-44) 06/06/20 11:18 ABG Base Excess -10.5 mmol/L (-2.0-3.0) L 06/06/20 11:18 ABG Hemoglobin 9.1 gm/dl (14.0-18.0) L 06/06/20 11:18 ABG Carboxyhemoglobin 1.3 % (0.0-5.0) 06/06/20 11:18 ABG Methemoglobin Not Reportable 06/06/20 11:18 VBG pH 7.438 (7.320-7.420) H 06/06/20 10:19 Oxyhemoglobin 98.2 % (95.0-99.0) 06/06/20 11:18 FiO2 21 % 06/06/20 11:18 Sodium 139 mmol/L (137-145) 06/17/20 12:40 Potassium 6.2 mmol/L (3.6-5.0) H* D 06/17/20 12:40 Chloride 111.2 mmol/L (98-107) H 06/17/20 12:40 Carbon Dioxide 16 mmol/L (22-30) L 06/17/20 12:40 Anion Gap 18 mmol/L 06/17/20 12:40 BUN 35 mg/dL (9-20) H 06/17/20 12:40 Creatinine 1.6 mg/dL (0.8-1.3) H 06/17/20 12:40 Estimated GFR 51 ml/min 06/17/20 12:40 BUN/Creatinine Ratio 22 % 06/17/20 12:40 Glucose 124 mg/dL (75-100) H 06/17/20 12:40 POC Glucose 167 mg/dL (70-105) H 06/17/20 16:38 Lactic Acid 1.50 mmol/L (0.7-2.0) 06/08/20 05:15 Calcium 7.5 mg/dL (8.4-10.2) L 06/17/20 12:40 Phosphorus 2.70 mg/dL (2.5-4.5) D 06/16/20 04:40 Magnesium 1.70 mg/dL (1.7-2.3) 06/16/20 04:40 Iron 54 ug/dL (49-181) 06/10/20 10:44 TIBC 157 mcg/dL (250-450) L 06/10/20 10:44 Ferritin 569.5 ng/mL (30.0-300.0) H 06/10/20 10:44 Total Bilirubin 0.20 mg/dL (0.1-1.2) 06/14/20 05:23 AST 19 units/L (5-40) 06/14/20 05:23 ALT 20 units/L (7-56) 06/14/20 05:23 Alkaline Phosphatase 55 units/L (35-129) 06/14/20 05:23 Ammonia 64.0 umol/L (25-60) H 06/06/20 10:19 Total Creatine Kinase 1212 units/L (55-170) H 06/09/20 12:57 CK-MB (CK-2) 12.1 ng/mL (0.0-4.0) H 06/09/20 12:57 CK-MB (CK-2) Rel Index 0.9 (0-4) 06/09/20 12:57 Troponin T 0.170 ng/mL (0.00-0.029) H* D 06/11/20 05:30 Total Protein 4.9 g/dL (6.3-8.2) L 06/14/20 05:23 Albumin 2.4 g/dL (3.9-5) L 06/14/20 05:23 Albumin/Globulin Ratio 1.0 % 06/14/20 05:23 Triglycerides 103 mg/dL (2-149) 06/06/20 10:19 Cholesterol 84 mg/dL (50-199) 06/06/20 10:19 LDL Cholesterol Direct 28 mg/dL (50-130) L 06/06/20 10:19 HDL Cholesterol 44 mg/dL (40-59) 06/06/20 10:19 Cholesterol/HDL Ratio 1.90 % 06/06/20 10:19 Vitamin B12 1170 pg/mL (211-911) H 06/10/20 14:49 TSH 4.440 mlU/mL (0.270-4.200) H 06/06/20 10:19 Free T4 1.55 ng/dL (0.76-1.46) H 06/06/20 10:19 PTH Intact 271.9 pg/mL (15-65) H 06/08/20 05:15 Urine Color Yellow (Yellow) 06/06/20 14:02 Urine Turbidity Cloudy (Clear) 06/06/20 14:02 Urine pH 6.0 (5.0-7.0) 06/06/20 14:02 Ur Specific [place] 1.013 (1.003-1.030) 06/06/20 14:02 Urine Protein 100 mg/dl mg/dL (Negative) 06/06/20 14:02 Urine Glucose (UA) Neg mg/dL (Negative) 06/06/20 14:02 Urine Ketones Neg mg/dL (Negative) 06/06/20 14:02 Urine Blood Sm (Negative) 06/06/20 14:02 Urine Nitrite Neg (Negative) 06/06/20 14:02 Urine Bilirubin Neg (Negative) 06/06/20 14:02 Urine Urobilinogen < 2.0 mg/dL (<2.0) 06/06/20 14:02 Ur Leukocyte Esterase Lg (Negative) 06/06/20 14:02 Urine WBC (Auto) > 182.0 /HPF (0.0-6.0) H 06/06/20 14:02 Urine RBC (Auto) 55.0 /HPF (0.0-6.0) 06/06/20 14:02 U Epithel Cells (Auto) 1.0 /HPF (0-13.0) 06/06/20 14:02 Urine WBC Clumps 2+ /HPF 06/06/20 14:02 Urine Creatinine 57.0 mg/dL (0.1-20.0) H 06/06/20 21:05 Urine Sodium 85 mmol/L 06/06/20 21:05 Random Vancomycin 9.8 ug/mL (0-40.0) 06/09/20 04:30 Urine Opiates Screen Presumptive negative 06/06/20 14:02 Urine Methadone Screen Presumptive negative 06/06/20 14:02 Ur Barbiturates Screen Presumptive negative 06/06/20 14:02 Ur Phencyclidine Scrn Presumptive negative 06/06/20 14:02 Ur Amphetamines Screen Presumptive negative 06/06/20 14:02 U Benzodiazepines Scrn Presumptive negative 06/06/20 14:02 Urine Cocaine Screen Presumptive negative 06/06/20 14:02 U Marijuana (THC) Screen Presumptive negative 06/06/20 14:02 Drugs of Abuse Note Disclamer 06/06/20 14:02 Plasma/Serum Alcohol < 0.01 % (0-0.07) 06/06/20 10:19 C. difficile Tox (PCR) Negative (Negative) 06/08/20 Unknown Coronavirus (PCR) Negative (Negative) 06/14/20 10:35 Blood Type O POSITIVE 06/15/20 11:00 Antibody Screen Negative 06/15/20 11:00 Crossmatch See Detail 06/15/20 11:00 Microbiology: Microbiology 06/16/20 17:49 Peripheral/Venous Blood Culture - Preliminary NO GROWTH AFTER 24 HOURS 06/16/20 17:49 Peripheral/Venous Blood Culture - Preliminary NO GROWTH AFTER 24 HOURS Torres/IV: Voiding Method Indwelling Catheter Active Medications - Current Medications Current Medications: Generic Name Dose Route Start Last Admin Trade Name Freq PRN Reason Stop Dose Admin Acetaminophen 650 mg 06/06/20 15:00 06/16/20 19:53 Acetaminophen 325 Mg Tab PO 650 mg Q6H PRN Administration Pain, Mild (1-3) Albuterol 2.5 mg 06/06/20 15:00 Albuterol 2.5 Mg/3 Ml Nebu IH Q3HRT PRN Shortness Of Breath Allopurinol 100 mg 06/07/20 10:00 06/17/20 10:11 Allopurinol 100 Mg Tab PO 100 mg QDAY YELENA Administration Calcium Carbonate/Glycine 500 mg 06/07/20 10:00 06/17/20 10:11 Calcium Carbonate 500 Mg Tab Chew PO 500 mg QDAY YELENA Administration Cholecalciferol 2,000 unit 06/07/20 10:00 06/17/20 10:11 Cholecalciferol (Vit D3) 1000 Unit (25 Mcg) Tab PO 2,000 unit QDAY YELENA Administration Cholestyramine Resin 4 gm 06/12/20 22:00 06/17/20 10:10 Cholestyramine (With Sugar) 4 Gm Packet PO 4 gm BID YELENA Administration Dicyclomine HCl 10 mg 06/06/20 20:00 06/17/20 14:08 Dicyclomine 10 Mg Cap PO 10 mg TID YELENA Administration Famotidine 20 mg 06/13/20 10:00 06/17/20 10:10 Famotidine 20 Mg Tab PO 20 mg QDAY YELENA Administration Sodium Chloride 1,000 mls @ 75 mls/hr 06/17/20 09:00 Nacl 0.9% 1000 Ml IV DIRECT YELENA Magnesium Citrate 300 ml 06/06/20 16:20 Magnesium Citrate 300 Ml Oral Liqd PO QDAY PRN Constipation Metoprolol Tartrate 25 mg 06/09/20 22:00 06/17/20 10:11 Metoprolol Tartrate 25 Mg Tab PO 25 mg BID YELENA Administration Pravastatin Sodium 10 mg 06/06/20 22:00 06/16/20 22:30 Pravastatin 20 Mg Tab PO 10 mg QHS YELENA Administration Sodium Bicarbonate 650 mg 06/16/20 20:00 06/17/20 14:08 Sodium Bicarbonate 650 Mg Tab PO 650 mg TID YELENA Administration Sodium Chloride 10 ml 06/06/20 15:00 06/17/20 10:11 Sodium Chloride 0.9% 10 Ml Flush Syringe IV 10 ml BID YELENA Administration Sodium Chloride 10 ml 06/06/20 15:00 Sodium Chloride 0.9% 10 Ml Flush Syringe IV PRN PRN LINE FLUSH Tamsulosin HCl 0.4 mg 06/14/20 11:00 06/17/20 10:11 Tamsulosin 0.4 Mg Cap PO 0.4 mg QDAY YELENA Administration Nutrition/Malnutrition Assess - Dietary Evaluation Nutrition/Malnutrition Findings: Nutrition Notes Start: 06/08/20 11:43 Freq: Status: Active Protocol: Document 06/16/20 14:34 CW (Rec: 06/16/20 14:47 CW [id number]) Nutrition Notes Initial or Follow up Reassessment Current Diagnosis Acute Kidney Injury,Diabetes, Hypertension Other Pertinent Diagnosis AMS, Dementia, UTI, metabolic encephalopathy, ?s/p CVA? Current Diet Mechanical soft diet + ONS BID Labs/Tests BUN 21 Cr 1.4 Pertinent Medications K4PO3 in NS at 85 ml/hr Height 5 ft 8 in Weight 101.2 kg Shafer Body Weight (kg) 70.00 BMI 33.9 Weight change and time frame weight change likely d/t error Weight Status Appropriate Subjective/Other Information F/U for intakes and ONS. Pt eating more of meals. Approximately 50% per tech and drinks 75% of ONS. Pt receives feeding assist. Will continue ONS at TID until intake stablizes Percent of energy/protein needs met: 104%/123% Burn Absent Trauma Absent GI Symptoms Diarrhea Difficulty In Swallowing Skin Integrity/Comment Stage 1 pressure ulcer Current % PO Fair (50-74%) Minimum of two criteria No Fluid Accumulation Mild (non-severe) #2 Nutrition Diagnosis Increased nutrient needs ( specify in comment below) Diagnosis Progress(for reassessment Continues documentation) #1 Nutrition Diagnosis Inadequate oral intake As Evidenced by Signs and Symptoms Pt eating 50% of meals Diagnosis Progress(for reassessment Improved documentation) Is patient on ventilator? No Is Patient Ambulatory and/or Out of Bed Yes REE-([place]-St. Jeor-ambulatory/OOB) [ 2211.950 [id number]] Kcal/Kg value to use for calculation 18 Approximate Energy Requirements Using 1822 kcal/Kg Calculation Used for Recommendations Rosenda Donna Additional Notes protein needs: 62 - 153g (0.8 - 1.2g/kgBW for ISAAC) fluid needs: 1 ml/kcal Nutrition Intervention Change Diet Order: Continue Mechanical Soft Diet and ONS Add Supplement/Snack (indicate name/kcal Nepro TID /protein ) Provides kCal: 1,275 Provides Protein (gm) 57 Goal #1 Meet at least 75% of kcal and proteins via PO Goal #2 wound healing Anticipated Discharge Needs: Mechanical Soft diet + ONS PRN Follow-Up By: 06/21/20 Additional Comments F/U intakes and ONS tolerance
[2020-06-17 19:49] LABS: Calcium 7.6 mg/dL (8.4-10.2)
[2020-06-17] MEDS: PRAVASTATIN 20 MG TAB PO SCH (21:59)
[2020-06-17] MEDS: ACETAMINOPHEN 325 MG TAB PO PRN (22:00)
[2020-06-17] MEDS ORDERED: SODIUM BICARBONATE 150 MEQ in WATER, STERILE *NICU ONLY 1,000 SYR IV SCH (23:00)
[2020-06-18] MEDS: ACETAMINOPHEN 325 MG TAB PO PRN (08:59)
[2020-06-18] MEDS: CHOLESTYRAMINE (WITH SUGAR) 4 GM PACKET PO SCH ×2 (09:03→22:59)
[2020-06-18] MEDS: CHOLECALCIFEROL (VIT D3) 1000 UNIT (25 mcg) TAB PO SCH (09:03)
[2020-06-18] MEDS: allopurinoL 100 MG TAB PO SCH (09:03)
[2020-06-18] MEDS: FAMOTIDINE 20 MG TAB PO SCH (09:03)
[2020-06-18] MEDS: CALCIUM CARBONATE 500 MG TAB CHEW PO SCH (09:03)
[2020-06-18] MEDS: TAMSULOSIN 0.4 MG CAP PO SCH (09:03)
[2020-06-18] MEDS: DICYCLOMINE 10 MG CAP PO SCH ×3 (09:03→22:59)
[2020-06-18] MEDS: SODIUM BICARBONATE 650 MG TAB PO SCH ×3 (09:04→22:59)
[2020-06-18] MEDS: METOPROLOL TARTRATE 25 MG TAB PO SCH ×2 (09:05→22:58)
--- NOTE | 2020-06-18 10:18 | Progress Note ---
Assessment and Plan 1. Acute kidney injury: Vasomotor ISAAC in the setting of shock. Renal US negative for hydro. Monitor renal function. Creatinine level about the same as yesterday. IV fluids. Avoid nephrotoxic agents. Meds dosage based on GFR. 2. FEN: Hypernatremia, improved. Hyperkalemia, improved, monitor. Metabolic acidosis, Sod bicarb, monitor. Monitor lytes and volume status. 3. Sepsis with shock: Currently off pressors. Monitor BP. 4. UTI: S/p Abx. 5. Acute hypoxemic respiratory failure: CXR clear. COVID test negative. NC O2 as needed. 6. Diarrhea: ?Colitis. C.diff negative. 7. Suspected R kidney mass: CT abdomen showed cyst. D/w patient's daughter to follow up in 2-3 weeks. 8. Metabolic encephalopathy: Monitor. 9. H/o Dementia: Supportive care. 10. H/o HTN: Monitor BP. 11. Anemia, POA: Monitor. Subjective: Patient was seen and examined at the bedside. No new complaint. Objective: General appearance: well-developed, appears stated age, not in distress HEENT: ATNC Neck: trachea midline Respiratory: ctab Heart: regular, S1S2, no murmur Gastrointestinal: soft, normoactive bowel sounds, not tender Integumentary: no rash, warm and dry Ext: no edema Neurologic: alert, not following any command, confusion noted Ext: trace edema : torres catheter Subjective Date of service: 06/18/20 Principal diagnosis: shock Objective - Vital Signs Vital signs: Vital Signs - 12hr 06/17/20 06/18/20 06/18/20 23:26 04:18 07:15 Temperature 98.0 F 98.4 F 100.1 F H Pulse Rate 99 H 100 H 103 H Respiratory 18 18 18 Rate Blood Pressure 131/49 129/40 111/46 O2 Sat by Pulse 98 100 97 Oximetry 06/18/20 09:05 Temperature Pulse Rate 103 H Respiratory Rate Blood Pressure 111/46 O2 Sat by Pulse Oximetry - Lab 06/18/20 10:39 06/18/20 10:39 Most recent lab results ABG pH 7.329 pH Units (7.350-7.450) L 06/06/20 11:18 ABG pCO2 27.8 mm Hg 06/06/20 11:18 ABG pO2 258.1 mm Hg (80.0-90.0) H 06/06/20 11:18 ABG HCO3 14.3 mmol/L (20.0-26.0) L 06/06/20 11:18 ABG O2 Saturation 99.4 % (95.0-99.0) H 06/06/20 11:18 Calcium 7.6 mg/dL (8.4-10.2) L 06/17/20 18:49 Phosphorus 2.70 mg/dL (2.5-4.5) D 06/16/20 04:40 Magnesium 1.70 mg/dL (1.7-2.3) 06/16/20 04:40 Urine Creatinine 57.0 mg/dL (0.1-20.0) H 06/06/20 21:05 Urine Sodium 85 mmol/L 06/06/20 21:05 Medications & Allergies - Medications Allergies/Adverse Reactions: Allergies No Known Allergies Allergy (Verified 06/06/20 15:21) Home Medications: Home Medications Medication Instructions Recorded Confirmed Last Taken Type Amlodipine Besylate [Norvasc] 5 mg PO QDAY 06/06/20 06/06/20 Unknown History Calcium Carb/Magnesium Hydrox 500 mg PO QDAY 06/06/20 06/06/20 Unknown History [Antacid 1000-200 mg Tab Chew] Cholecalciferol (Vitamin D3) 2,000 unit PO QDAY 06/06/20 06/06/20 Unknown History [Vitamin D3 2,000 UNIT CAP] Dicyclomine [Bentyl] 10 mg PO TID 06/06/20 06/06/20 Unknown History Insulin Lispro [Insulin Lispro 10 unit SQ TID 06/06/20 06/06/20 Unknown History Kwikpen U-100] Magnesium Citrate [Citroma] 296 ml PO QDAY 06/06/20 06/06/20 Unknown History Melatonin [Melatonin 3MG TAB] 6 mg PO QHS 06/06/20 06/06/20 Unknown History Pantoprazole [Protonix TAB] 40 mg PO QDAY 06/06/20 06/06/20 Unknown History Pioglitazone HCl [Actos] 30 mg PO QDAY 06/06/20 06/06/20 Unknown History Pravastatin Sodium [Pravastatin] 10 mg PO QHS 06/06/20 06/06/20 Unknown History allopurinoL [Zyloprim] 100 mg PO QDAY 06/06/20 06/06/20 Unknown History Cholestyramine (with Sugar) 4 gm PO BID #60 packet 06/17/20 Unknown Rx [Questran] Famotidine [Pepcid] 20 mg PO QDAY #30 tablet 06/17/20 Unknown Rx Metoprolol [Lopressor TAB] 25 mg PO BID #60 tablet 06/17/20 Unknown Rx Sodium Bicarbonate 650 mg PO TID #30 tablet 06/17/20 Unknown Rx Tamsulosin [Flomax] 0.4 mg PO QDAY #30 capsule 06/17/20 Unknown Rx Active Medications: Generic Name Dose Route Start Last Admin Trade Name Freq PRN Reason Stop Dose Admin Acetaminophen 650 mg 06/06/20 15:00 06/18/20 08:59 Acetaminophen 325 Mg Tab PO 650 mg Q6H PRN Administration Pain, Mild (1-3) Albuterol 2.5 mg 06/06/20 15:00 Albuterol 2.5 Mg/3 Ml Nebu IH Q3HRT PRN Shortness Of Breath Allopurinol 100 mg 06/07/20 10:00 06/18/20 09:03 Allopurinol 100 Mg Tab PO 100 mg QDAY YELEAN Administration Calcium Carbonate/Glycine 500 mg 06/07/20 10:00 06/18/20 09:03 Calcium Carbonate 500 Mg Tab Chew PO 500 mg QDAY YELENA Administration Cholecalciferol 2,000 unit 06/07/20 10:00 06/18/20 09:03 Cholecalciferol (Vit D3) 1000 Unit (25 Mcg) Tab PO 2,000 unit QDAY YELENA Administration Cholestyramine Resin 4 gm 06/12/20 22:00 06/18/20 09:03 Cholestyramine (With Sugar) 4 Gm Packet PO 4 gm BID YELENA Administration Dicyclomine HCl 10 mg 06/06/20 20:00 06/18/20 09:03 Dicyclomine 10 Mg Cap PO 10 mg TID YELENA Administration Famotidine 20 mg 06/13/20 10:00 06/18/20 09:03 Famotidine 20 Mg Tab PO 20 mg QDAY YELENA Administration Sodium Bicarbonate 150 meq/ 1,150 mls @ 75 mls/hr 06/18/20 09:00 Sterile Water IV DIRECT YELENA Magnesium Citrate 300 ml 06/06/20 16:20 Magnesium Citrate 300 Ml Oral Liqd PO QDAY PRN Constipation Metoprolol Tartrate 25 mg 06/09/20 22:00 06/18/20 09:05 Metoprolol Tartrate 25 Mg Tab PO 25 mg BID YELENA Administration Pravastatin Sodium 10 mg 06/06/20 22:00 06/17/20 21:59 Pravastatin 20 Mg Tab PO 10 mg QHS YELENA Administration Sodium Bicarbonate 650 mg 06/16/20 20:00 06/18/20 09:04 Sodium Bicarbonate 650 Mg Tab PO 650 mg TID YELENA Administration Sodium Chloride 10 ml 06/06/20 15:00 06/17/20 22:00 Sodium Chloride 0.9% 10 Ml Flush Syringe IV 10 ml BID YELENA Administration Sodium Chloride 10 ml 06/06/20 15:00 Sodium Chloride 0.9% 10 Ml Flush Syringe IV PRN PRN LINE FLUSH Tamsulosin HCl 0.4 mg 06/14/20 11:00 06/18/20 09:03 Tamsulosin 0.4 Mg Cap PO 0.4 mg QDAY YELENA Administration
[2020-06-18 11:35] LABS: Calcium 7.3 mg/dL (8.4-10.2)
--- NOTE | 2020-06-18 11:41 | XRay Report ---
CHEST 1 VIEW INDICATION / CLINICAL INFORMATION: fever. COMPARISON: 06/06/2020 FINDINGS: SUPPORT DEVICES: None. HEART / MEDIASTINUM: No significant abnormality. LUNGS / PLEURA: Subsegmental atelectasis or scarring on the left No pneumothorax. ADDITIONAL FINDINGS: No significant additional findings. IMPRESSION: Subsegmental atelectasis or scarring on the left unchanged from 06/06/2020. Overall no interval change Signer Name: Ash Bentley MD FACR Signed: 06/18/2020 11:36 AM Workstation Name: [id number]
[2020-06-18 11:47] LABS: Hematocrit 23.9 % (35.5-45.6); Mean Corpuscular HGB Conc 34 % (32-34); Mean Corpuscular Volume 96 fl (84-94); Platelet Count 241 K/mm3 (140-440); Red Blood Count 2.48 M/mm3 (3.65-5.03); Red Cell Distribution Width 13.9 % (13.2-15.2)
--- NOTE | 2020-06-18 12:52 | Progress Note ---
Assessment and Plan Assessment and plan: This is a 80-year-old male who is a resident of assisted living facility with vascular dementia, cerebral sclerosis, debility, diabetes mellitus who presents to the emergency department on 06/06 with complaints of lethargy and diminished cognition as per daughter he developed an episode of unresponsiveness while at breakfast at at his assisted living facility. Patient was found to have a urinary tract infection complicated by sepsis and septic shock, acute kidney injury, toxic metabolic encephalopathy as well as metabolic acidosis. Patient was hypotensive with systolic blood pressures in the 50s and was initiated on vasopressor support in the emergency department. Patient was admitted to the hospital service with consults to nephrology and [facility]. Septic Shock Metabolic encephalopathy Coag negative Staphylococcus / bottles Urinary tract infection Possible ISCHEMIC COLITIS Acute hypoxic respiratory failure Acute kidney injury Metabolic acidosis persist Diarrhea Dementia Hypertension Anemia 06/07: Patient remains on dopamine, vasopressin and Levophed. Nephrology has started the patient on sodium bicarbonate drip for metabolic acidosis. Infectious disease initiated vancomycin in addition to the cefepime and ordered a C. difficile. 06/08: Patient has gram-positive cocci bacteremia in 03/07 bottles which grew to be coag negative staph coccus and he has repeat blood cultures in progress. Urine culture has no growth to date and he is on IV vancomycin and cefepime. Yesterday we ordered a C. difficile PCR which is pending. Patient had a moment of tachycardia into the 130s and a stat EKG was obtained. Patient was given amiodarone bolus by [facility] and cardiology was consulted. Patient is hyperchloremic today however his metabolic acidosis and BUN/creatinine is slightly improved to 93/3.2 from 100/3.6 and his repeat lactic acid is 1.5. At the time my examination patient was on Levophed at 6, vasopressin 0.03 and dopamine at 6. This morning patient failed his swallow eval and ST evaluation was ordered. Of note patient's echocardiogram shows reduced 15 to 20% with borderline left ventricular hypertrophy. 06/09: This morning his speech evaluation was completed and he has been cleared for mechanical soft diet with thin liquids. Patient complained of right-sided chest pain with radiation to shoulders and a stat EKG cardiac enzymes were ordered. Patient was recultured yesterday and those have no growth to date and his vancomycin was stopped. Infectious disease team recommends removal of Torres catheter when feasible and a CT abdomen/pelvis when stable. Patient has been cl eared to transfer to the floor by cardiology and [facility]. 06/10/2020; patient is on IV cefepime for sepsis due to UTI day 3 out of 5. Vancomycin discontinued. Patient is complaining pleuritic chest pain. Patient was evaluated by cardiology for elevated troponin and episode of A. fib on admission. Cardiology discontinued amiodarone and put her on Lopressor. Cardiology recommend against anticoagulation because of patient's anemia. Hemoglobin this morning was 7.4 and anemia work-up is in progress. I did ordered CT abdomen and pelvis. PT OT evaluation. Patient has ISAAC and nephrology is following. Patient has rectal tube and liquid stool in the bag. I ordered stool for C. difficile. We will continue to monitor. 06/11/2020; patient is on cefepime day 06/06. CT abdomen and pelvis was done and significant for colitis, ischemic colitis is possibility given hypotension and elevated lactic acid level. I will consult GI. Patient has episode of A. fib for less than 24 hours, cardiology was consulted and recommend to be on Lopressor. No need for coagulation because of his anemia. Hemoglobin this morning is improved to 8. Anemia work-up was done, no iron deficiency anemia identified. ISAAC is improving. C. difficile was negative. 06/12/2020; continue cefepime per ID recommendation. CT abdomen and pelvis is significant for ischemic colitis likely due to septic shock, hypotension. Patient was seen by GI and recommend no further intervention at this time. Patient had episode of A. fib on admission for less than 24 hours and cardiology recommend to continue on Lopressor, no anticoagulation needed. Hemoglobin is improving. Patient came from assisted living facility. Patient need Covid test before discharge. ISAAC is improving. Creatinine this morning was 1.7. Nephrology is following. OT evaluated and recommend subacute rehab, PT evaluation is pending. 06/13: Replace K and Mag, continue to monitor renal fuction, Continue abx per ID, c.diff negative. patient still with Rectal tube and Torres but will re- evaluate for possible discontinuation. Questran started by GI. Will continue to monitor and replace electrolytes Discussed with nursing staff to change torres to condom catheter CM to try and ascertain patients functional status prior to hospitalization 06/14: Patient showing some clinical improvement Torres replaced due to urinary retention about 1000 cc of clear urine removed. Flomax started. PT OT consulted as patient is noted to have been ambulatory prior to this admission will likely need SNF placement. Diarrhea consistency is improving anticipate discharge in 24 to 48 hours once approval is obtained. Cardiology input is noted Lopressor 25 mg p.o. twice daily possible addition of SABIHA inhibitor or ARB when okay with nephrology as regular this is a is improving. At this time no AC for A. fib management due to anemia and the transient nature of the A. fib which was less than 24 hours. 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 Unknown etiology or chronicity of these diagnoses. No current clinical evidence of acutely decompensated HF. Per [facility] records, pt saw [facility] in 1998 and underwent LHC which did not show any significant findings. Continue with conservative cardiac management given pt's advanced age, dementia and multiple co-morbidities. Recommend pt follow up in our office with Dr. Rosa within 2 weeks of discharge ([phone]). 06/15: Continue supportive care. Will give a unit of PRBC and anticipate discharge today or tomorrow once approval from insurance company obtained. PATIENT will need urology follow up outpatient and also cardiology outpatient. Discussed with patient and Case management Continue PT OT 06/16: Still awaiting prior approval from the insurance company for patient to be discharged. Continue supportive care thrombocytopenia noted again antiplatelets are on hold. We will continue to monitor anticipate discharge once prior authorization is received from insurance [employer]. Continue rehab therapy while in house 06/17: Severe hyperkalemia noted in the setting of renal dysfunction. Will hold discharge. Also patient with intermittent fevers culture still on resolved. Bolus of fluid given will also give some Kayexalate to correct hyperkalemia. 06/18: Still with low-grade fever. White count still normal. Potassium mild hypokalemia. Will monitor closely renal function showing some improvement. If continues to improve we will anticipate discharge tomorrow. Still with elevated troponin but improved compared to prior. No respiratory compromise noted at this time diarrhea still present. Will discuss with ID if patient should empirically be treated with p.o. vancomycin despite negative C. difficile for with Flagyl. History Interval history: Patient seen and examined, patient reports no new complaints today. Did note some EKG changes repeat potassium is low. Hospitalist Physical - Physical exam Narrative exam: Not in cardiopulmonary distress. The patient appeared well nourished and normally developed. Currently in due to severe debility Vital signs as documented. Head exam is unremarkable. No scleral icterus . Neck is without jugular venous distension, thyromegaly, or carotid bruits. Lungs are clear to auscultation. Cardiac exam reveals regular rate and Rhythm. Abdominal exam reveals normal bowel sounds, nontender, no organomegaly. Rectal tube in place. Extremities are with plus 1 pitting edeam in upper and lower ext and both femoral and pedal pulses are normal. PROOF PRESS OPERATOR: Alert, cooperative, - Constitutional Vitals: Temp Pulse Resp BP Pulse Ox 100.0 F H 104 H 18 110/43 100 06/18/20 10:50 06/18/20 10:50 06/18/20 10:50 06/18/20 11:00 06/18/20 10:50 General appearance: Present: no acute distress, well-nourished HEART Score - HEART Score Troponin: Troponin T 0.141 ng/mL (0.00-0.029) H* 06/18/20 10:39 Results - Labs CBC & Chem 7: 06/18/20 10:39 06/18/20 10:39 Labs: Laboratory Last Values WBC 4.0 K/mm3 (4.5-11.0) L 06/18/20 10:39 RBC 2.48 M/mm3 (3.65-5.03) L 06/18/20 10:39 Hgb 8.0 gm/dl (11.8-15.2) L 06/18/20 10:39 Hct 23.9 % (35.5-45.6) L D 06/18/20 10:39 MCV 96 fl (84-94) H 06/18/20 10:39 MCH 32 pg (28-32) 06/18/20 10:39 MCHC 34 % (32-34) 06/18/20 10:39 RDW 13.9 % (13.2-15.2) 06/18/20 10:39 Plt Count 241 K/mm3 (140-440) 06/18/20 10:39 Lymph % (Auto) 6.8 % (13.4-35.0) L 06/13/20 06:13 [place] % (Auto) 5.0 % (0.0-7.3) 06/13/20 06:13 Eos % (Auto) 1.7 % (0.0-4.3) 06/13/20 06:13 Baso % (Auto) 0.2 % (0.0-1.8) 06/13/20 06:13 Lymph # (Auto) 0.9 K/mm3 (1.2-5.4) L 06/13/20 06:13 [place] # (Auto) 0.7 K/mm3 (0.0-0.8) 06/13/20 06:13 Eos # (Auto) 0.2 K/mm3 (0.0-0.4) 06/13/20 06:13 Baso # (Auto) 0.0 K/mm3 (0.0-0.1) 06/13/20 06:13 Add Manual Diff Complete 06/16/20 12:50 Total Counted 100 06/16/20 12:50 Seg Neutrophils % 86.3 % (40.0-70.0) H 06/13/20 06:13 Seg Neuts % (Manual) 65.0 % (40.0-70.0) 06/16/20 12:50 Band Neutrophils % 20.0 % 06/16/20 12:50 Lymphocytes % (Manual) 6.0 % (13.4-35.0) L 06/16/20 12:50 Reactive Lymphs % (Man) 1.0 % 06/12/20 05:24 Monocytes % (Manual) 9.0 % (0.0-7.3) H 06/16/20 12:50 Eosinophils % (Manual) 2.0 % (0.0-4.3) 06/12/20 05:24 Nucleated RBC % Not Reportable 06/16/20 12:50 Seg Neutrophils # 11.9 K/mm3 (1.8-7.7) H 06/13/20 06:13 Seg Neutrophils # Man 7.2 K/mm3 (1.8-7.7) 06/16/20 12:50 Band Neutrophils # 2.2 K/mm3 06/16/20 12:50 Lymphocytes # (Manual) 0.7 K/mm3 (1.2-5.4) L 06/16/20 12:50 Abs React Lymphs (Man) 0.0 K/mm3 06/16/20 12:50 Monocytes # (Manual) 1.0 K/mm3 (0.0-0.8) H 06/16/20 12:50 Eosinophils # (Manual) 0.0 K/mm3 (0.0-0.4) 06/16/20 12:50 Basophils # (Manual) 0.0 K/mm3 (0.0-0.1) 06/16/20 12:50 Metamyelocytes # 0.0 K/mm3 06/16/20 12:50 Myelocytes # 0.0 K/mm3 06/16/20 12:50 Promyelocytes # 0.0 K/mm3 06/16/20 12:50 Blast Cells # 0.0 K/mm3 06/16/20 12:50 WBC Morphology Not Reportable 06/16/20 12:50 Hypersegmented Neuts Not Reportable 06/16/20 12:50 Hyposegmented Neuts Not Reportable 06/16/20 12:50 Hypogranular Neuts Not Reportable 06/16/20 12:50 Smudge Cells Not Reportable 06/16/20 12:50 Toxic Granulation Not Reportable 06/16/20 12:50 Toxic Vacuolation Not Reportable 06/16/20 12:50 Dohle Bodies Not Reportable 06/16/20 12:50 Pelger-Huet Anomaly Not Reportable 06/16/20 12:50 Denys Rods Not Reportable 06/16/20 12:50 Platelet Estimate Consistent w auto 06/16/20 12:50 Clumped Platelets Rare 06/16/20 12:50 Plt Clumps, EDTA Not Reportable 06/16/20 12:50 Large Platelets Rare 06/16/20 12:50 Giant Platelets Not Reportable 06/16/20 12:50 Platelet Satelliting Not Reportable 06/16/20 12:50 Plt Morphology Comment Not Reportable 06/16/20 12:50 RBC Morphology Normal 06/16/20 12:50 Dimorphic RBCs Not Reportable 06/16/20 12:50 Polychromasia Not Reportable 06/16/20 12:50 Hypochromasia Not Reportable 06/16/20 12:50 Poikilocytosis Not Reportable 06/16/20 12:50 Anisocytosis Not Reportable 06/16/20 12:50 Microcytosis Not Reportable 06/16/20 12:50 Macrocytosis Not Reportable 06/16/20 12:50 Spherocytes Not Reportable 06/16/20 12:50 Pappenheimer Bodies Not Reportable 06/16/20 12:50 Sickle Cells Not Reportable 06/16/20 12:50 Target Cells Not Reportable 06/16/20 12:50 Tear Drop Cells Not Reportable 06/16/20 12:50 Ovalocytes Not Reportable 06/16/20 12:50 Helmet Cells Not Reportable 06/16/20 12:50 [place] Bodies Not Reportable 06/16/20 12:50 Morgan Rings Not Reportable 06/16/20 12:50 Alexander Cells Not Reportable 06/16/20 12:50 Bite Cells Not Reportable 06/16/20 12:50 Crenated Cell Not Reportable 06/16/20 12:50 Elliptocytes Not Reportable 06/16/20 12:50 Acanthocytes (Spur) Not Reportable 06/16/20 12:50 Rouleaux Not Reportable 06/16/20 12:50 Hemoglobin C Crystals Not Reportable 06/16/20 12:50 Schistocytes Not Reportable 06/16/20 12:50 Malaria parasites Not Reportable 06/16/20 12:50 Chance Bodies Not Reportable 06/16/20 12:50 Hem Pathologist Commnt No 06/16/20 12:50 PT 16.3 Sec. (12.2-14.9) H 06/06/20 10:19 INR 1.33 (0.87-1.13) H 06/06/20 10:19 APTT 31.6 Sec. (24.2-36.6) 06/06/20 10:19 ABG pH 7.329 pH Units (7.350-7.450) L 06/06/20 11:18 ABG pCO2 27.8 mm Hg 06/06/20 11:18 ABG pO2 258.1 mm Hg (80.0-90.0) H 06/06/20 11:18 ABG HCO3 14.3 mmol/L (20.0-26.0) L 06/06/20 11:18 ABG O2 Saturation 99.4 % (95.0-99.0) H 06/06/20 11:18 ABG O2 Content 13.2 (0.0-44) 06/06/20 11:18 ABG Base Excess -10.5 mmol/L (-2.0-3.0) L 06/06/20 11:18 ABG Hemoglobin 9.1 gm/dl (14.0-18.0) L 06/06/20 11:18 ABG Carboxyhemoglobin 1.3 % (0.0-5.0) 06/06/20 11:18 ABG Methemoglobin Not Reportable 06/06/20 11:18 VBG pH 7.438 (7.320-7.420) H 06/06/20 10:19 Oxyhemoglobin 98.2 % (95.0-99.0) 06/06/20 11:18 FiO2 21 % 06/06/20 11:18 Sodium 134 mmol/L (137-145) L 06/18/20 10:39 Potassium 3.4 mmol/L (3.6-5.0) L D 06/18/20 10:39 Chloride 104.4 mmol/L (98-107) 06/18/20 10:39 Carbon Dioxide 18 mmol/L (22-30) L 06/18/20 10:39 Anion Gap 15 mmol/L 06/18/20 10:39 BUN 29 mg/dL (9-20) H 06/18/20 10:39 Creatinine 1.6 mg/dL (0.8-1.3) H 06/18/20 10:39 Estimated GFR 51 ml/min 06/18/20 10:39 BUN/Creatinine Ratio 18 % 06/18/20 10:39 Glucose 128 mg/dL (75-100) H 06/18/20 10:39 POC Glucose 72 mg/dL (70-105) 06/18/20 07:41 Lactic Acid 1.50 mmol/L (0.7-2.0) 06/08/20 05:15 Calcium 7.3 mg/dL (8.4-10.2) L 06/18/20 10:39 Phosphorus 2.70 mg/dL (2.5-4.5) D 06/16/20 04:40 Magnesium 1.70 mg/dL (1.7-2.3) 06/16/20 04:40 Iron 54 ug/dL (49-181) 06/10/20 10:44 TIBC 157 mcg/dL (250-450) L 06/10/20 10:44 Ferritin 569.5 ng/mL (30.0-300.0) H 06/10/20 10:44 Total Bilirubin 0.20 mg/dL (0.1-1.2) 06/14/20 05:23 AST 19 units/L (5-40) 06/14/20 05:23 ALT 20 units/L (7-56) 06/14/20 05:23 Alkaline Phosphatase 55 units/L (35-129) 06/14/20 05:23 Ammonia 64.0 umol/L (25-60) H 06/06/20 10:19 Total Creatine Kinase 1212 units/L (55-170) H 06/09/20 12:57 CK-MB (CK-2) 12.1 ng/mL (0.0-4.0) H 06/09/20 12:57 CK-MB (CK-2) Rel Index 0.9 (0-4) 06/09/20 12:57 Troponin T 0.141 ng/mL (0.00-0.029) H* 06/18/20 10:39 Total Protein 4.9 g/dL (6.3-8.2) L 06/14/20 05:23 Albumin 2.4 g/dL (3.9-5) L 06/14/20 05:23 Albumin/Globulin Ratio 1.0 % 06/14/20 05:23 Triglycerides 103 mg/dL (2-149) 06/06/20 10:19 Cholesterol 84 mg/dL (50-199) 06/06/20 10:19 LDL Cholesterol Direct 28 mg/dL (50-130) L 06/06/20 10:19 HDL Cholesterol 44 mg/dL (40-59) 06/06/20 10:19 Cholesterol/HDL Ratio 1.90 % 06/06/20 10:19 Vitamin B12 1170 pg/mL (211-911) H 06/10/20 14:49 TSH 4.440 mlU/mL (0.270-4.200) H 06/06/20 10:19 Free T4 1.55 ng/dL (0.76-1.46) H 06/06/20 10:19 PTH Intact 271.9 pg/mL (15-65) H 06/08/20 05:15 Urine Color Yellow (Yellow) 06/06/20 14:02 Urine Turbidity Cloudy (Clear) 06/06/20 14:02 Urine pH 6.0 (5.0-7.0) 06/06/20 14:02 Ur Specific [place] 1.013 (1.003-1.030) 06/06/20 14:02 Urine Protein 100 mg/dl mg/dL (Negative) 06/06/20 14:02 Urine Glucose (UA) Neg mg/dL (Negative) 06/06/20 14:02 Urine Ketones Neg mg/dL (Negative) 06/06/20 14:02 Urine Blood Sm (Negative) 06/06/20 14:02 Urine Nitrite Neg (Negative) 06/06/20 14:02 Urine Bilirubin Neg (Negative) 06/06/20 14:02 Urine Urobilinogen < 2.0 mg/dL (<2.0) 06/06/20 14:02 Ur Leukocyte Esterase Lg (Negative) 06/06/20 14:02 Urine WBC (Auto) > 182.0 /HPF (0.0-6.0) H 06/06/20 14:02 Urine RBC (Auto) 55.0 /HPF (0.0-6.0) 06/06/20 14:02 U Epithel Cells (Auto) 1.0 /HPF (0-13.0) 06/06/20 14:02 Urine WBC Clumps 2+ /HPF 06/06/20 14:02 Urine Creatinine 57.0 mg/dL (0.1-20.0) H 06/06/20 21:05 Urine Sodium 85 mmol/L 06/06/20 21:05 Random Vancomycin 9.8 ug/mL (0-40.0) 06/09/20 04:30 Urine Opiates Screen Presumptive negative 06/06/20 14:02 Urine Methadone Screen Presumptive negative 06/06/20 14:02 Ur Barbiturates Screen Presumptive negative 06/06/20 14:02 Ur Phencyclidine Scrn Presumptive negative 06/06/20 14:02 Ur Amphetamines Screen Presumptive negative 06/06/20 14:02 U Benzodiazepines Scrn Presumptive negative 06/06/20 14:02 Urine Cocaine Screen Presumptive negative 06/06/20 14:02 U Marijuana (THC) Screen Presumptive negative 06/06/20 14:02 Drugs of Abuse Note Disclamer 06/06/20 14:02 Plasma/Serum Alcohol < 0.01 % (0-0.07) 06/06/20 10:19 C. difficile Tox (PCR) Negative (Negative) 06/08/20 Unknown Coronavirus (PCR) Negative (Negative) 06/14/20 10:35 Blood Type O POSITIVE 06/15/20 11:00 Antibody Screen Negative 06/15/20 11:00 Crossmatch See Detail 06/15/20 11:00 Microbiology: Microbiology 06/16/20 17:49 Peripheral/Venous Blood Culture - Preliminary NO GROWTH AFTER 24 HOURS 06/16/20 17:49 Peripheral/Venous Blood Culture - Preliminary NO GROWTH AFTER 24 HOURS Torres/IV: Voiding Method Indwelling Catheter Active Medications - Current Medications Current Medications: Generic Name Dose Route Start Last Admin Trade Name Freq PRN Reason Stop Dose Admin Acetaminophen 650 mg 06/06/20 15:00 06/18/20 08:59 Acetaminophen 325 Mg Tab PO 650 mg Q6H PRN Administration Pain, Mild (1-3) Albuterol 2.5 mg 06/06/20 15:00 Albuterol 2.5 Mg/3 Ml Nebu IH Q3HRT PRN Shortness Of Breath Allopurinol 100 mg 06/07/20 10:00 06/18/20 09:03 Allopurinol 100 Mg Tab PO 100 mg QDAY YELNEA Administration Calcium Carbonate/Glycine 500 mg 06/07/20 10:00 06/18/20 09:03 Calcium Carbonate 500 Mg Tab Chew PO 500 mg QDAY YELENA Administration Cholecalciferol 2,000 unit 06/07/20 10:00 06/18/20 09:03 Cholecalciferol (Vit D3) 1000 Unit (25 Mcg) Tab PO 2,000 unit QDAY YELENA Administration Cholestyramine Resin 4 gm 06/12/20 22:00 06/18/20 09:03 Cholestyramine (With Sugar) 4 Gm Packet PO 4 gm BID YELENA Administration Dicyclomine HCl 10 mg 06/06/20 20:00 06/18/20 09:03 Dicyclomine 10 Mg Cap PO 10 mg TID YELENA Administration Famotidine 20 mg 06/13/20 10:00 06/18/20 09:03 Famotidine 20 Mg Tab PO 20 mg QDAY YELENA Administration Sodium Bicarbonate 150 meq/ 1,150 mls @ 75 mls/hr 06/18/20 09:00 Sterile Water IV DIRECT YELENA Magnesium Citrate 300 ml 06/06/20 16:20 Magnesium Citrate 300 Ml Oral Liqd PO QDAY PRN Constipation Metoprolol Tartrate 25 mg 06/09/20 22:00 06/18/20 09:05 Metoprolol Tartrate 25 Mg Tab PO 25 mg BID YELENA Administration Pravastatin Sodium 10 mg 06/06/20 22:00 06/17/20 21:59 Pravastatin 20 Mg Tab PO 10 mg QHS YELENA Administration Sodium Bicarbonate 650 mg 06/16/20 20:00 06/18/20 09:04 Sodium Bicarbonate 650 Mg Tab PO 650 mg TID YELENA Administration Sodium Chloride 10 ml 06/06/20 15:00 06/17/20 22:00 Sodium Chloride 0.9% 10 Ml Flush Syringe IV 10 ml BID YELENA Administration Sodium Chloride 10 ml 06/06/20 15:00 Sodium Chloride 0.9% 10 Ml Flush Syringe IV PRN PRN LINE FLUSH Tamsulosin HCl 0.4 mg 06/14/20 11:00 06/18/20 09:03 Tamsulosin 0.4 Mg Cap PO 0.4 mg QDAY YELENA Administration Nutrition/Malnutrition Assess - Dietary Evaluation Nutrition/Malnutrition Findings: Nutrition Notes Start: 06/08/20 11:43 Freq: Status: Active Protocol: Document 06/16/20 14:34 CW (Rec: 06/16/20 14:47 CW [email or web address]) Nutrition Notes Initial or Follow up Reassessment Current Diagnosis Acute Kidney Injury,Diabetes, Hypertension Other Pertinent Diagnosis AMS, Dementia, UTI, metabolic encephalopathy, ?s/p CVA? Current Diet Mechanical soft diet + ONS BID Labs/Tests BUN 21 Cr 1.4 Pertinent Medications K4PO3 in NS at 85 ml/hr Height 5 ft 8 in Weight 101.2 kg [place] Body Weight (kg) 70.00 BMI 33.9 Weight change and time frame weight change likely d/t error Weight Status Appropriate Subjective/Other Information F/U for intakes and ONS. Pt eating more of meals. Approximately 50% per tech and drinks 75% of ONS. Pt receives feeding assist. Will continue ONS at TID until intake stablizes Percent of energy/protein needs met: 104%/123% Burn Absent Trauma Absent GI Symptoms Diarrhea Difficulty In Swallowing Skin Integrity/Comment Stage 1 pressure ulcer Current % PO Fair (50-74%) Minimum of two criteria No Fluid Accumulation Mild (non-severe) #2 Nutrition Diagnosis Increased nutrient needs ( specify in comment below) Diagnosis Progress(for reassessment Continues documentation) #1 Nutrition Diagnosis Inadequate oral intake As Evidenced by Signs and Symptoms Pt eating 50% of meals Diagnosis Progress(for reassessment Improved documentation) Is patient on ventilator? No Is Patient Ambulatory and/or Out of Bed Yes REE-([facility]-ambulatory/OOB) [ 2211.950 [id number]] Kcal/Kg value to use for calculation 18 Approximate Energy Requirements Using 1822 kcal/Kg Calculation Used for Recommendations [facility] Additional Notes protein needs: 62 - 153g (0.8 - 1.2g/kgBW for ISAAC) fluid needs: 1 ml/kcal Nutrition Intervention Change Diet Order: Continue Mechanical Soft Diet and ONS Add Supplement/Snack (indicate name/kcal Nepro TID /protein ) Provides kCal: 1,275 Provides Protein (gm) 57 Goal #1 Meet at least 75% of kcal and proteins via PO Goal #2 wound healing Anticipated Discharge Needs: Mechanical Soft diet + ONS PRN Follow-Up By: 06/21/20 Additional Comments F/U intakes and ONS tolerance
[2020-06-18] MEDS: metroNIDAZOLE 250 MG TAB PO SCH ×2 (14:23→22:59)
--- NOTE | 2020-06-18 17:06 | Gastroenterology Progress Note ---
Assessment and Plan 1. GI: pt presented w/ shock now with ischemic colitis and loose stool - C. diff and other stool cx's negative - slowly improving diarrhea - antibiotics per ID - Continue current meds including Questran - continue po, advance as tolerated - no plans to scope at this time - advance diet as tolerated - will sign off, call if needed Subjective Date of service: 06/18/20 Principal diagnosis: shock Interval history: - reports decrease diarrhea overnight Objective - Constitutional Vitals: Temp Pulse Resp BP Pulse Ox 100.0 F H 99 H 18 110/43 100 06/18/20 10:50 06/18/20 14:10 06/18/20 10:50 06/18/20 11:00 06/18/20 10:50 General appearance: no acute distress - EENT Eyes: PERRL - Respiratory Respiratory: bilateral: CTA - Cardiovascular Rhythm: regular Heart Sounds: Present: S1 & S2 - Gastrointestinal General gastrointestinal: Present: soft, non-tender, non-distended - Labs CBC & Chem 7: 06/18/20 10:39 06/18/20 10:39 Labs: Laboratory Results - last 24 hr 06/17/20 06/17/20 06/17/20 16:38 18:49 20:25 WBC RBC Hgb Hct MCV MCH MCHC RDW Plt Count Sodium 140 Potassium 5.6 H Chloride 110.6 H Carbon Dioxide 15 L Anion Gap 20 BUN 37 H Creatinine 1.7 H Estimated GFR 47 BUN/Creatinine Ratio 22 Glucose 133 H POC Glucose 167 H 112 H Calcium 7.6 L Troponin T 06/18/20 06/18/20 06/18/20 07:41 10:39 10:39 WBC 4.0 L RBC 2.48 L Hgb 8.0 L Hct 23.9 L D MCV 96 H MCH 32 MCHC 34 RDW 13.9 Plt Count 241 Sodium 134 L Potassium 3.4 L D Chloride 104.4 Carbon Dioxide 18 L Anion Gap 15 BUN 29 H Creatinine 1.6 H Estimated GFR 51 BUN/Creatinine Ratio 18 Glucose 128 H POC Glucose 72 Calcium 7.3 L Troponin T 0.141 H* 06/18/20 10:55 WBC RBC Hgb Hct MCV MCH MCHC RDW Plt Count Sodium Potassium Chloride Carbon Dioxide Anion Gap BUN Creatinine Estimated GFR BUN/Creatinine Ratio Glucose POC Glucose 128 H Calcium Troponin T
[2020-06-18] MEDS: PRAVASTATIN 20 MG TAB PO SCH (22:59)
[2020-06-19] MEDS: SODIUM BICARBONATE 150 MEQ in WATER FOR INJECTION (PF) 1,000 ML IV SCH ×2 (01:59→18:06)
[2020-06-19] MEDS: metroNIDAZOLE 250 MG TAB PO SCH ×3 (06:31→22:11)
[2020-06-19] MEDS: DICYCLOMINE 10 MG CAP PO SCH ×3 (09:08→22:11)
[2020-06-19] MEDS: METOPROLOL TARTRATE 25 MG TAB PO SCH ×2 (09:08→22:11)
[2020-06-19] MEDS: CALCIUM CARBONATE 500 MG TAB CHEW PO SCH (09:08)
[2020-06-19] MEDS: allopurinoL 100 MG TAB PO SCH (09:08)
[2020-06-19] MEDS: FAMOTIDINE 20 MG TAB PO SCH (09:08)
[2020-06-19] MEDS: TAMSULOSIN 0.4 MG CAP PO SCH (09:08)
[2020-06-19] MEDS: CHOLECALCIFEROL (VIT D3) 1000 UNIT (25 mcg) TAB PO SCH (09:09)
[2020-06-19] MEDS: SODIUM BICARBONATE 650 MG TAB PO SCH ×3 (09:09→22:10)
[2020-06-19] MEDS: CHOLESTYRAMINE (WITH SUGAR) 4 GM PACKET PO SCH ×2 (09:10→22:12)
--- NOTE | 2020-06-19 11:58 | Progress Note ---
Assessment and Plan Assessment and plan: This is a 80-year-old male who is a resident of assisted living facility with vascular dementia, cerebral sclerosis, debility, diabetes mellitus who presents to the emergency department on 06/06 with complaints of lethargy and diminished cognition as per daughter he developed an episode of unresponsiveness while at breakfast at at his assisted living facility. Patient was found to have a urinary tract infection complicated by sepsis and septic shock, acute kidney injury, toxic metabolic encephalopathy as well as metabolic acidosis. Patient was hypotensive with systolic blood pressures in the 50s and was initiated on vasopressor support in the emergency department. Patient was admitted to the hospital service with consults to nephrology and [facility]. Septic Shock Metabolic encephalopathy Coag negative Staphylococcus / bottles Urinary tract infection Possible ISCHEMIC COLITIS Acute hypoxic respiratory failure Acute kidney injury Metabolic acidosis persist Diarrhea Dementia Hypertension Anemia 06/07: Patient remains on dopamine, vasopressin and Levophed. Nephrology has started the patient on sodium bicarbonate drip for metabolic acidosis. Infectious disease initiated vancomycin in addition to the cefepime and ordered a C. difficile. 06/08: Patient has gram-positive cocci bacteremia in 03/07 bottles which grew to be coag negative staph coccus and he has repeat blood cultures in progress. Urine culture has no growth to date and he is on IV vancomycin and cefepime. Yesterday we ordered a C. difficile PCR which is pending. Patient had a moment of tachycardia into the 130s and a stat EKG was obtained. Patient was given amiodarone bolus by [facility] and cardiology was consulted. Patient is hyperchloremic today however his metabolic acidosis and BUN/creatinine is slightly improved to 93/3.2 from 100/3.6 and his repeat lactic acid is 1.5. At the time my examination patient was on Levophed at 6, vasopressin 0.03 and dopamine at 6. This morning patient failed his swallow eval and ST evaluation was ordered. Of note patient's echocardiogram shows reduced 15 to 20% with borderline left ventricular hypertrophy. 06/09: This morning his speech evaluation was completed and he has been cleared for mechanical soft diet with thin liquids. Patient complained of right-sided chest pain with radiation to shoulders and a stat EKG cardiac enzymes were ordered. Patient was recultured yesterday and those have no growth to date and his vancomycin was stopped. Infectious disease team recommends removal of Torres catheter when feasible and a CT abdomen/pelvis when stable. Patient has been cl eared to transfer to the floor by cardiology and [facility]. 06/10/2020; patient is on IV cefepime for sepsis due to UTI day 3 out of 5. Vancomycin discontinued. Patient is complaining pleuritic chest pain. Patient was evaluated by cardiology for elevated troponin and episode of A. fib on admission. Cardiology discontinued amiodarone and put her on Lopressor. Cardiology recommend against anticoagulation because of patient's anemia. Hemoglobin this morning was 7.4 and anemia work-up is in progress. I did ordered CT abdomen and pelvis. PT OT evaluation. Patient has ISAAC and nephrology is following. Patient has rectal tube and liquid stool in the bag. I ordered stool for C. difficile. We will continue to monitor. 06/11/2020; patient is on cefepime day 06/06. CT abdomen and pelvis was done and significant for colitis, ischemic colitis is possibility given hypotension and elevated lactic acid level. I will consult GI. Patient has episode of A. fib for less than 24 hours, cardiology was consulted and recommend to be on Lopressor. No need for coagulation because of his anemia. Hemoglobin this morning is improved to 8. Anemia work-up was done, no iron deficiency anemia identified. ISAAC is improving. C. difficile was negative. 06/12/2020; continue cefepime per ID recommendation. CT abdomen and pelvis is significant for ischemic colitis likely due to septic shock, hypotension. Patient was seen by GI and recommend no further intervention at this time. Patient had episode of A. fib on admission for less than 24 hours and cardiology recommend to continue on Lopressor, no anticoagulation needed. Hemoglobin is improving. Patient came from assisted living facility. Patient need Covid test before discharge. ISAAC is improving. Creatinine this morning was 1.7. Nephrology is following. OT evaluated and recommend subacute rehab, PT evaluation is pending. 06/13: Replace K and Mag, continue to monitor renal fuction, Continue abx per ID, c.diff negative. patient still with Rectal tube and Torres but will re- evaluate for possible discontinuation. Questran started by GI. Will continue to monitor and replace electrolytes Discussed with nursing staff to change torres to condom catheter CM to try and ascertain patients functional status prior to hospitalization 06/14: Patient showing some clinical improvement Torres replaced due to urinary retention about 1000 cc of clear urine removed. Flomax started. PT OT consulted as patient is noted to have been ambulatory prior to this admission will likely need SNF placement. Diarrhea consistency is improving anticipate discharge in 24 to 48 hours once approval is obtained. Cardiology input is noted Lopressor 25 mg p.o. twice daily possible addition of SABIHA inhibitor or ARB when okay with nephrology as regular this is a is improving. At this time no AC for A. fib management due to anemia and the transient nature of the A. fib which was less than 24 hours. 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 Unknown etiology or chronicity of these diagnoses. No current clinical evidence of acutely decompensated HF. Per [facility] records, pt saw [facility]ology in 1998 and underwent LHC which did not show any significant findings. Continue with conservative cardiac management given pt's advanced age, dementia and multiple co-morbidities. Recommend pt follow up in our office with Dr. Rosa within 2 weeks of discharge ([phone]). 06/15: Continue supportive care. Will give a unit of PRBC and anticipate discharge today or tomorrow once approval from insurance company obtained. PATIENT will need urology follow up outpatient and also cardiology outpatient. Discussed with patient and Case management Continue PT OT 06/16: Still awaiting prior approval from the insurance company for patient to be discharged. Continue supportive care thrombocytopenia noted again antiplatelets are on hold. We will continue to monitor anticipate discharge once prior authorization is received from insurance [employer]. Continue rehab therapy while in house 06/17: Severe hyperkalemia noted in the setting of renal dysfunction. Will hold discharge. Also patient with intermittent fevers culture still on resolved. Bolus of fluid given will also give some Kayexalate to correct hyperkalemia. 06/18: Still with low-grade fever. White count still normal. Potassium mild hypokalemia. Will monitor closely renal function showing some improvement. If continues to improve we will anticipate discharge tomorrow. Still with elevated troponin but improved compared to prior. No respiratory compromise noted at this time diarrhea still present. Will discuss with ID if patient should empirically be treated with p.o. vancomycin despite negative C. difficile for with Flagyl. 06/19: Considering noted deformity on bilateral shoulders will obtain an x-ray just to ensure that there is no other acute event. I reviewed the chart and not has been done. Continue bicarb drip may need to decrease rate but will defer to community education specialist. Awaiting labs from today. Anticipate discharge in a.m. we will also rule out bilateral upper extremity DVT due to the swelling. History Interval history: Patient seen and examined, patient reports no new complaints today. Continue supportive care Hospitalist Physical - Physical exam Narrative exam: Not in cardiopulmonary distress. The patient appeared well nourished and normally developed. Currently in due to severe debility Vital signs as documented. Head exam is unremarkable. No scleral icterus . Neck is without jugular venous distension, thyromegaly, or carotid bruits. Lungs are clear to auscultation. Cardiac exam reveals regular rate and Rhythm. Abdominal exam reveals normal bowel sounds, nontender, no organomegaly. Rectal tube in place. Extremities are with plus 1 pitting edeam in upper and lower ext and both femoral and pedal pulses are normal. NURSING INFORMATICS ANALYST: Alert, cooperative, - Constitutional Vitals: Temp Pulse Resp BP Pulse Ox 98.9 F 103 H 20 125/42 100 06/19/20 08:02 06/19/20 10:00 06/19/20 08:02 06/19/20 09:08 06/19/20 08:02 General appearance: Present: no acute distress, well-nourished HEART Score - HEART Score Troponin: Troponin T 0.141 ng/mL (0.00-0.029) H* 06/18/20 10:39 Results - Labs CBC & Chem 7: 06/18/20 10:39 06/18/20 10:39 Labs: Laboratory Last Values WBC 4.0 K/mm3 (4.5-11.0) L 06/18/20 10:39 RBC 2.48 M/mm3 (3.65-5.03) L 06/18/20 10:39 Hgb 8.0 gm/dl (11.8-15.2) L 06/18/20 10:39 Hct 23.9 % (35.5-45.6) L D 06/18/20 10:39 MCV 96 fl (84-94) H 06/18/20 10:39 MCH 32 pg (28-32) 06/18/20 10:39 MCHC 34 % (32-34) 06/18/20 10:39 RDW 13.9 % (13.2-15.2) 06/18/20 10:39 Plt Count 241 K/mm3 (140-440) 06/18/20 10:39 Lymph % (Auto) 6.8 % (13.4-35.0) L 06/13/20 06:13 Bath % (Auto) 5.0 % (0.0-7.3) 06/13/20 06:13 Eos % (Auto) 1.7 % (0.0-4.3) 06/13/20 06:13 Baso % (Auto) 0.2 % (0.0-1.8) 06/13/20 06:13 Lymph # (Auto) 0.9 K/mm3 (1.2-5.4) L 06/13/20 06:13 Bath # (Auto) 0.7 K/mm3 (0.0-0.8) 06/13/20 06:13 Eos # (Auto) 0.2 K/mm3 (0.0-0.4) 06/13/20 06:13 Baso # (Auto) 0.0 K/mm3 (0.0-0.1) 06/13/20 06:13 Add Manual Diff Complete 06/16/20 12:50 Total Counted 100 06/16/20 12:50 Seg Neutrophils % 86.3 % (40.0-70.0) H 06/13/20 06:13 Seg Neuts % (Manual) 65.0 % (40.0-70.0) 06/16/20 12:50 Band Neutrophils % 20.0 % 06/16/20 12:50 Lymphocytes % (Manual) 6.0 % (13.4-35.0) L 06/16/20 12:50 Reactive Lymphs % (Man) 1.0 % 06/12/20 05:24 Monocytes % (Manual) 9.0 % (0.0-7.3) H 06/16/20 12:50 Eosinophils % (Manual) 2.0 % (0.0-4.3) 06/12/20 05:24 Nucleated RBC % Not Reportable 06/16/20 12:50 Seg Neutrophils # 11.9 K/mm3 (1.8-7.7) H 06/13/20 06:13 Seg Neutrophils # Man 7.2 K/mm3 (1.8-7.7) 06/16/20 12:50 Band Neutrophils # 2.2 K/mm3 06/16/20 12:50 Lymphocytes # (Manual) 0.7 K/mm3 (1.2-5.4) L 06/16/20 12:50 Abs React Lymphs (Man) 0.0 K/mm3 06/16/20 12:50 Monocytes # (Manual) 1.0 K/mm3 (0.0-0.8) H 06/16/20 12:50 Eosinophils # (Manual) 0.0 K/mm3 (0.0-0.4) 06/16/20 12:50 Basophils # (Manual) 0.0 K/mm3 (0.0-0.1) 06/16/20 12:50 Metamyelocytes # 0.0 K/mm3 06/16/20 12:50 Myelocytes # 0.0 K/mm3 06/16/20 12:50 Promyelocytes # 0.0 K/mm3 06/16/20 12:50 Blast Cells # 0.0 K/mm3 06/16/20 12:50 WBC Morphology Not Reportable 06/16/20 12:50 Hypersegmented Neuts Not Reportable 06/16/20 12:50 Hyposegmented Neuts Not Reportable 06/16/20 12:50 Hypogranular Neuts Not Reportable 06/16/20 12:50 Smudge Cells Not Reportable 06/16/20 12:50 Toxic Granulation Not Reportable 06/16/20 12:50 Toxic Vacuolation Not Reportable 06/16/20 12:50 Dohle Bodies Not Reportable 06/16/20 12:50 Pelger-Huet Anomaly Not Reportable 06/16/20 12:50 Denys Rods Not Reportable 06/16/20 12:50 Platelet Estimate Consistent w auto 06/16/20 12:50 Clumped Platelets Rare 06/16/20 12:50 Plt Clumps, EDTA Not Reportable 06/16/20 12:50 Large Platelets Rare 06/16/20 12:50 Giant Platelets Not Reportable 06/16/20 12:50 Platelet Satelliting Not Reportable 06/16/20 12:50 Plt Morphology Comment Not Reportable 06/16/20 12:50 RBC Morphology Normal 06/16/20 12:50 Dimorphic RBCs Not Reportable 06/16/20 12:50 Polychromasia Not Reportable 06/16/20 12:50 Hypochromasia Not Reportable 06/16/20 12:50 Poikilocytosis Not Reportable 06/16/20 12:50 Anisocytosis Not Reportable 06/16/20 12:50 Microcytosis Not Reportable 06/16/20 12:50 Macrocytosis Not Reportable 06/16/20 12:50 Spherocytes Not Reportable 06/16/20 12:50 Pappenheimer Bodies Not Reportable 06/16/20 12:50 Sickle Cells Not Reportable 06/16/20 12:50 Target Cells Not Reportable 06/16/20 12:50 Tear Drop Cells Not Reportable 06/16/20 12:50 Ovalocytes Not Reportable 06/16/20 12:50 Helmet Cells Not Reportable 06/16/20 12:50 Brenner-[place] Bodies Not Reportable 06/16/20 12:50 [place] Rings Not Reportable 06/16/20 12:50 [place] Cells Not Reportable 06/16/20 12:50 Bite Cells Not Reportable 06/16/20 12:50 Crenated Cell Not Reportable 06/16/20 12:50 Elliptocytes Not Reportable 06/16/20 12:50 Acanthocytes (Spur) Not Reportable 06/16/20 12:50 Rouleaux Not Reportable 06/16/20 12:50 Hemoglobin C Crystals Not Reportable 06/16/20 12:50 Schistocytes Not Reportable 06/16/20 12:50 Malaria parasites Not Reportable 06/16/20 12:50 Chance Bodies Not Reportable 06/16/20 12:50 Hem Pathologist Commnt No 06/16/20 12:50 PT 16.3 Sec. (12.2-14.9) H 06/06/20 10:19 INR 1.33 (0.87-1.13) H 06/06/20 10:19 APTT 31.6 Sec. (24.2-36.6) 06/06/20 10:19 ABG pH 7.329 pH Units (7.350-7.450) L 06/06/20 11:18 ABG pCO2 27.8 mm Hg 06/06/20 11:18 ABG pO2 258.1 mm Hg (80.0-90.0) H 06/06/20 11:18 ABG HCO3 14.3 mmol/L (20.0-26.0) L 06/06/20 11:18 ABG O2 Saturation 99.4 % (95.0-99.0) H 06/06/20 11:18 ABG O2 Content 13.2 (0.0-44) 06/06/20 11:18 ABG Base Excess -10.5 mmol/L (-2.0-3.0) L 06/06/20 11:18 ABG Hemoglobin 9.1 gm/dl (14.0-18.0) L 06/06/20 11:18 ABG Carboxyhemoglobin 1.3 % (0.0-5.0) 06/06/20 11:18 ABG Methemoglobin Not Reportable 06/06/20 11:18 VBG pH 7.438 (7.320-7.420) H 06/06/20 10:19 Oxyhemoglobin 98.2 % (95.0-99.0) 06/06/20 11:18 FiO2 21 % 06/06/20 11:18 Sodium 134 mmol/L (137-145) L 06/18/20 10:39 Potassium 3.4 mmol/L (3.6-5.0) L D 06/18/20 10:39 Chloride 104.4 mmol/L (98-107) 06/18/20 10:39 Carbon Dioxide 18 mmol/L (22-30) L 06/18/20 10:39 Anion Gap 15 mmol/L 06/18/20 10:39 BUN 29 mg/dL (9-20) H 06/18/20 10:39 Creatinine 1.6 mg/dL (0.8-1.3) H 06/18/20 10:39 Estimated GFR 51 ml/min 06/18/20 10:39 BUN/Creatinine Ratio 18 % 06/18/20 10:39 Glucose 128 mg/dL (75-100) H 06/18/20 10:39 POC Glucose 71 mg/dL (70-105) 06/19/20 07:59 Lactic Acid 1.50 mmol/L (0.7-2.0) 06/08/20 05:15 Calcium 7.3 mg/dL (8.4-10.2) L 06/18/20 10:39 Phosphorus 2.70 mg/dL (2.5-4.5) D 06/16/20 04:40 Magnesium 1.70 mg/dL (1.7-2.3) 06/16/20 04:40 Iron 54 ug/dL (49-181) 06/10/20 10:44 TIBC 157 mcg/dL (250-450) L 06/10/20 10:44 Ferritin 569.5 ng/mL (30.0-300.0) H 06/10/20 10:44 Total Bilirubin 0.20 mg/dL (0.1-1.2) 06/14/20 05:23 AST 19 units/L (5-40) 06/14/20 05:23 ALT 20 units/L (7-56) 06/14/20 05:23 Alkaline Phosphatase 55 units/L (35-129) 06/14/20 05:23 Ammonia 64.0 umol/L (25-60) H 06/06/20 10:19 Total Creatine Kinase 1212 units/L (55-170) H 06/09/20 12:57 CK-MB (CK-2) 12.1 ng/mL (0.0-4.0) H 06/09/20 12:57 CK-MB (CK-2) Rel Index 0.9 (0-4) 06/09/20 12:57 Troponin T 0.141 ng/mL (0.00-0.029) H* 06/18/20 10:39 Total Protein 4.9 g/dL (6.3-8.2) L 06/14/20 05:23 Albumin 2.4 g/dL (3.9-5) L 06/14/20 05:23 Albumin/Globulin Ratio 1.0 % 06/14/20 05:23 Triglycerides 103 mg/dL (2-149) 06/06/20 10:19 Cholesterol 84 mg/dL (50-199) 06/06/20 10:19 LDL Cholesterol Direct 28 mg/dL (50-130) L 06/06/20 10:19 HDL Cholesterol 44 mg/dL (40-59) 06/06/20 10:19 Cholesterol/HDL Ratio 1.90 % 06/06/20 10:19 Vitamin B12 1170 pg/mL (211-911) H 06/10/20 14:49 TSH 4.440 mlU/mL (0.270-4.200) H 06/06/20 10:19 Free T4 1.55 ng/dL (0.76-1.46) H 06/06/20 10:19 PTH Intact 271.9 pg/mL (15-65) H 06/08/20 05:15 Urine Color Yellow (Yellow) 06/06/20 14:02 Urine Turbidity Cloudy (Clear) 06/06/20 14:02 Urine pH 6.0 (5.0-7.0) 06/06/20 14:02 Ur Specific [place] 1.013 (1.003-1.030) 06/06/20 14:02 Urine Protein 100 mg/dl mg/dL (Negative) 06/06/20 14:02 Urine Glucose (UA) Neg mg/dL (Negative) 06/06/20 14:02 Urine Ketones Neg mg/dL (Negative) 06/06/20 14:02 Urine Blood Sm (Negative) 06/06/20 14:02 Urine Nitrite Neg (Negative) 06/06/20 14:02 Urine Bilirubin Neg (Negative) 06/06/20 14:02 Urine Urobilinogen < 2.0 mg/dL (<2.0) 06/06/20 14:02 Ur Leukocyte Esterase Lg (Negative) 06/06/20 14:02 Urine WBC (Auto) > 182.0 /HPF (0.0-6.0) H 06/06/20 14:02 Urine RBC (Auto) 55.0 /HPF (0.0-6.0) 06/06/20 14:02 U Epithel Cells (Auto) 1.0 /HPF (0-13.0) 06/06/20 14:02 Urine WBC Clumps 2+ /HPF 06/06/20 14:02 Urine Creatinine 57.0 mg/dL (0.1-20.0) H 06/06/20 21:05 Urine Sodium 85 mmol/L 06/06/20 21:05 Random Vancomycin 9.8 ug/mL (0-40.0) 06/09/20 04:30 Urine Opiates Screen Presumptive negative 06/06/20 14:02 Urine Methadone Screen Presumptive negative 06/06/20 14:02 Ur Barbiturates Screen Presumptive negative 06/06/20 14:02 Ur Phencyclidine Scrn Presumptive negative 06/06/20 14:02 Ur Amphetamines Screen Presumptive negative 06/06/20 14:02 U Benzodiazepines Scrn Presumptive negative 06/06/20 14:02 Urine Cocaine Screen Presumptive negative 06/06/20 14:02 U Marijuana (THC) Screen Presumptive negative 06/06/20 14:02 Drugs of Abuse Note Disclamer 06/06/20 14:02 Plasma/Serum Alcohol < 0.01 % (0-0.07) 06/06/20 10:19 C. difficile Tox (PCR) Negative (Negative) 06/08/20 Unknown Coronavirus (PCR) Negative (Negative) 06/14/20 10:35 Blood Type O POSITIVE 06/15/20 11:00 Antibody Screen Negative 06/15/20 11:00 Crossmatch See Detail 06/15/20 11:00 Microbiology: Microbiology 06/16/20 17:49 Peripheral/Venous Blood Culture - Preliminary NO GROWTH AFTER 48 HOURS 06/16/20 17:49 Peripheral/Venous Blood Culture - Preliminary NO GROWTH AFTER 48 HOURS Torres/IV: Voiding Method Indwelling Catheter Active Medications - Current Medications Current Medications: Generic Name Dose Route Start Last Admin Trade Name Freq PRN Reason Stop Dose Admin Acetaminophen 650 mg 06/06/20 15:00 06/18/20 08:59 Acetaminophen 325 Mg Tab PO 650 mg Q6H PRN Administration Pain, Mild (1-3) Albuterol 2.5 mg 06/06/20 15:00 Albuterol 2.5 Mg/3 Ml Nebu IH Q3HRT PRN Shortness Of Breath Allopurinol 100 mg 06/07/20 10:00 06/19/20 09:08 Allopurinol 100 Mg Tab PO 100 mg QDAY YELENA Administration Calcium Carbonate/Glycine 500 mg 06/07/20 10:00 06/19/20 09:08 Calcium Carbonate 500 Mg Tab Chew PO 500 mg QDAY YELENA Administration Cholecalciferol 2,000 unit 06/07/20 10:00 06/19/20 09:09 Cholecalciferol (Vit D3) 1000 Unit (25 Mcg) Tab PO 2,000 unit QDAY YELENA Administration Cholestyramine Resin 4 gm 06/12/20 22:00 06/19/20 09:10 Cholestyramine (With Sugar) 4 Gm Packet PO 4 gm BID YELENA Administration Dicyclomine HCl 10 mg 06/06/20 20:00 06/19/20 09:08 Dicyclomine 10 Mg Cap PO 10 mg TID YELENA Administration Famotidine 20 mg 06/13/20 10:00 06/19/20 09:08 Famotidine 20 Mg Tab PO 20 mg QDAY YELENA Administration Sodium Bicarbonate 150 meq/ 1,150 mls @ 75 mls/hr 06/18/20 09:00 06/19/20 01:59 Sterile Water IV 75 mls/hr DIRECT YELENA Administration Magnesium Citrate 300 ml 06/06/20 16:20 Magnesium Citrate 300 Ml Oral Liqd PO QDAY PRN Constipation Metoprolol Tartrate 25 mg 06/09/20 22:00 06/19/20 09:08 Metoprolol Tartrate 25 Mg Tab PO 25 mg BID YELENA Administration Metronidazole 250 mg 06/18/20 14:00 06/19/20 06:31 Metronidazole 250 Mg Tab PO 250 mg Q8HR YELENA Administration Protocol Pravastatin Sodium 10 mg 06/06/20 22:00 06/18/20 22:59 Pravastatin 20 Mg Tab PO 10 mg QHS YELENA Administration Sodium Bicarbonate 650 mg 06/16/20 20:00 06/19/20 09:09 Sodium Bicarbonate 650 Mg Tab PO 650 mg TID YELENA Administration Sodium Chloride 10 ml 06/06/20 15:00 06/19/20 09:09 Sodium Chloride 0.9% 10 Ml Flush Syringe IV 10 ml BID YELENA Administration Sodium Chloride 10 ml 06/06/20 15:00 Sodium Chloride 0.9% 10 Ml Flush Syringe IV PRN PRN LINE FLUSH Tamsulosin HCl 0.4 mg 06/14/20 11:00 06/19/20 09:08 Tamsulosin 0.4 Mg Cap PO 0.4 mg QDAY YELENA Administration Nutrition/Malnutrition Assess - Dietary Evaluation Nutrition/Malnutrition Findings: Nutrition Notes Start: 06/08/20 11:43 Freq: Status: Active Protocol: Document 06/16/20 14:34 CW (Rec: 06/16/20 14:47 CW [id number]) Nutrition Notes Initial or Follow up Reassessment Current Diagnosis Acute Kidney Injury,Diabetes, Hypertension Other Pertinent Diagnosis AMS, Dementia, UTI, metabolic encephalopathy, ?s/p CVA? Current Diet Mechanical soft diet + ONS BID Labs/Tests BUN 21 Cr 1.4 Pertinent Medications K4PO3 in NS at 85 ml/hr Height 5 ft 8 in Weight 101.2 kg Mather Body Weight (kg) 70.00 BMI 33.9 Weight change and time frame weight change likely d/t error Weight Status Appropriate Subjective/Other Information F/U for intakes and ONS. Pt eating more of meals. Approximately 50% per tech and drinks 75% of ONS. Pt receives feeding assist. Will continue ONS at TID until intake stablizes Percent of energy/protein needs met: 104%/123% Burn Absent Trauma Absent GI Symptoms Diarrhea Difficulty In Swallowing Skin Integrity/Comment Stage 1 pressure ulcer Current % PO Fair (50-74%) Minimum of two criteria No Fluid Accumulation Mild (non-severe) #2 Nutrition Diagnosis Increased nutrient needs ( specify in comment below) Diagnosis Progress(for reassessment Continues documentation) #1 Nutrition Diagnosis Inadequate oral intake As Evidenced by Signs and Symptoms Pt eating 50% of meals Diagnosis Progress(for reassessment Improved documentation) Is patient on ventilator? No Is Patient Ambulatory and/or Out of Bed Yes REE-([facility]-ambulatory/OOB) [ 2211.950 [id number]] Kcal/Kg value to use for calculation 18 Approximate Energy Requirements Using 1822 kcal/Kg Calculation Used for Recommendations [facility] Additional Notes protein needs: 62 - 153g (0.8 - 1.2g/kgBW for ISAAC) fluid needs: 1 ml/kcal Nutrition Intervention Change Diet Order: Continue Mechanical Soft Diet and ONS Add Supplement/Snack (indicate name/kcal Nepro TID /protein ) Provides kCal: 1,275 Provides Protein (gm) 57 Goal #1 Meet at least 75% of kcal and proteins via PO Goal #2 wound healing Anticipated Discharge Needs: Mechanical Soft diet + ONS PRN Follow-Up By: 06/21/20 Additional Comments F/U intakes and ONS tolerance
--- NOTE | 2020-06-19 12:20 | Progress Note ---
Assessment and Plan 1. Acute kidney injury: Vasomotor ISAAC in the setting of shock. Renal US negative for hydro. Monitor renal function. Creatinine level about the same. Avoid nephrotoxic agents. Meds dosage based on GFR. No labs from today. 2. FEN: Hypernatremia, improved. Hyperkalemia, improved, monitor. Metabolic acidosis, Sod bicarb, monitor. Monitor lytes and volume status. 3. Sepsis with shock: Currently off pressors. Monitor BP. 4. UTI: S/p Abx. 5. Acute hypoxemic respiratory failure: CXR clear. COVID test negative. NC O2 as needed. 6. Diarrhea: ?Colitis. C.diff negative. 7. Suspected R kidney mass: CT abdomen showed cyst. D/w patient's daughter to follow up in 2-3 weeks. 8. Metabolic encephalopathy: Monitor. 9. H/o Dementia: Supportive care. 10. H/o HTN: Monitor BP. 11. Anemia, POA: Monitor. Subjective: Patient was seen and examined at the bedside. No new complaint. Objective: General appearance: well-developed, appears stated age, not in distress HEENT: ATNC Neck: trachea midline Respiratory: ctab Heart: regular, S1S2, no murmur Gastrointestinal: soft, normoactive bowel sounds, not tender Integumentary: no rash, warm and dry Ext: no edema Neurologic: alert, not following any command, confusion noted Ext: trace edema : Hair catheter Subjective Date of service: 06/19/20 Principal diagnosis: shock Objective - Vital Signs Vital signs: Vital Signs - 12hr 06/19/20 06/19/20 06/19/20 03:53 08:02 09:08 Temperature 98.0 F 98.9 F Pulse Rate 101 H 104 H 104 H Respiratory 18 20 Rate Blood Pressure 122/44 125/42 125/42 O2 Sat by Pulse 100 100 Oximetry 06/19/20 10:00 Temperature Pulse Rate 103 H Respiratory Rate Blood Pressure O2 Sat by Pulse Oximetry - Lab 06/18/20 10:39 06/18/20 10:39 Most recent lab results ABG pH 7.329 pH Units (7.350-7.450) L 06/06/20 11:18 ABG pCO2 27.8 mm Hg 06/06/20 11:18 ABG pO2 258.1 mm Hg (80.0-90.0) H 06/06/20 11:18 ABG HCO3 14.3 mmol/L (20.0-26.0) L 06/06/20 11:18 ABG O2 Saturation 99.4 % (95.0-99.0) H 06/06/20 11:18 Calcium 7.3 mg/dL (8.4-10.2) L 06/18/20 10:39 Phosphorus 2.70 mg/dL (2.5-4.5) D 06/16/20 04:40 Magnesium 1.70 mg/dL (1.7-2.3) 06/16/20 04:40 Urine Creatinine 57.0 mg/dL (0.1-20.0) H 06/06/20 21:05 Urine Sodium 85 mmol/L 06/06/20 21:05 Medications & Allergies - Medications Allergies/Adverse Reactions: Allergies No Known Allergies Allergy (Verified 06/06/20 15:21) Home Medications: Home Medications Medication Instructions Recorded Confirmed Last Taken Type Amlodipine Besylate [Norvasc] 5 mg PO QDAY 06/06/20 06/06/20 Unknown History Calcium Carb/Magnesium Hydrox 500 mg PO QDAY 06/06/20 06/06/20 Unknown History [Antacid 1000-200 mg Tab Chew] Cholecalciferol (Vitamin D3) 2,000 unit PO QDAY 06/06/20 06/06/20 Unknown History [Vitamin D3 2,000 UNIT CAP] Dicyclomine [Bentyl] 10 mg PO TID 06/06/20 06/06/20 Unknown History Insulin Lispro [Insulin Lispro 10 unit SQ TID 06/06/20 06/06/20 Unknown History Kwikpen U-100] Magnesium Citrate [Citroma] 296 ml PO QDAY 06/06/20 06/06/20 Unknown History Melatonin [Melatonin 3MG TAB] 6 mg PO QHS 06/06/20 06/06/20 Unknown History Pantoprazole [Protonix TAB] 40 mg PO QDAY 06/06/20 06/06/20 Unknown History Pioglitazone HCl [Actos] 30 mg PO QDAY 06/06/20 06/06/20 Unknown History Pravastatin Sodium [Pravastatin] 10 mg PO QHS 06/06/20 06/06/20 Unknown History allopurinoL [Zyloprim] 100 mg PO QDAY 06/06/20 06/06/20 Unknown History Cholestyramine (with Sugar) 4 gm PO BID #60 packet 06/17/20 Unknown Rx [Questran] Famotidine [Pepcid] 20 mg PO QDAY #30 tablet 06/17/20 Unknown Rx Metoprolol [Lopressor TAB] 25 mg PO BID #60 tablet 06/17/20 Unknown Rx Sodium Bicarbonate 650 mg PO TID #30 tablet 06/17/20 Unknown Rx Tamsulosin [Flomax] 0.4 mg PO QDAY #30 capsule 06/17/20 Unknown Rx Active Medications: Generic Name Dose Route Start Last Admin Trade Name Freq PRN Reason Stop Dose Admin Acetaminophen 650 mg 06/06/20 15:00 06/18/20 08:59 Acetaminophen 325 Mg Tab PO 650 mg Q6H PRN Administration Pain, Mild (1-3) Albuterol 2.5 mg 06/06/20 15:00 Albuterol 2.5 Mg/3 Ml Nebu IH Q3HRT PRN Shortness Of Breath Allopurinol 100 mg 06/07/20 10:00 06/19/20 09:08 Allopurinol 100 Mg Tab PO 100 mg QDAY YELENA Administration Calcium Carbonate/Glycine 500 mg 06/07/20 10:00 06/19/20 09:08 Calcium Carbonate 500 Mg Tab Chew PO 500 mg QDAY YELENA Administration Cholecalciferol 2,000 unit 06/07/20 10:00 06/19/20 09:09 Cholecalciferol (Vit D3) 1000 Unit (25 Mcg) Tab PO 2,000 unit QDAY YELENA Administration Cholestyramine Resin 4 gm 06/12/20 22:00 06/19/20 09:10 Cholestyramine (With Sugar) 4 Gm Packet PO 4 gm BID YELENA Administration Dicyclomine HCl 10 mg 06/06/20 20:00 06/19/20 09:08 Dicyclomine 10 Mg Cap PO 10 mg TID YELENA Administration Famotidine 20 mg 06/13/20 10:00 06/19/20 09:08 Famotidine 20 Mg Tab PO 20 mg QDAY YELENA Administration Sodium Bicarbonate 150 meq/ 1,150 mls @ 75 mls/hr 06/18/20 09:00 06/19/20 01:59 Sterile Water IV 75 mls/hr DIRECT YELENA Administration Magnesium Citrate 300 ml 06/06/20 16:20 Magnesium Citrate 300 Ml Oral Liqd PO QDAY PRN Constipation Metoprolol Tartrate 25 mg 06/09/20 22:00 06/19/20 09:08 Metoprolol Tartrate 25 Mg Tab PO 25 mg BID YELENA Administration Metronidazole 250 mg 06/18/20 14:00 06/19/20 06:31 Metronidazole 250 Mg Tab PO 250 mg Q8HR YELENA Administration Protocol Pravastatin Sodium 10 mg 06/06/20 22:00 06/18/20 22:59 Pravastatin 20 Mg Tab PO 10 mg QHS YELENA Administration Sodium Bicarbonate 650 mg 06/16/20 20:00 06/19/20 09:09 Sodium Bicarbonate 650 Mg Tab PO 650 mg TID YELENA Administration Sodium Chloride 10 ml 06/06/20 15:00 06/19/20 09:09 Sodium Chloride 0.9% 10 Ml Flush Syringe IV 10 ml BID YELENA Administration Sodium Chloride 10 ml 06/06/20 15:00 Sodium Chloride 0.9% 10 Ml Flush Syringe IV PRN PRN LINE FLUSH Tamsulosin HCl 0.4 mg 06/14/20 11:00 06/19/20 09:08 Tamsulosin 0.4 Mg Cap PO 0.4 mg QDAY YELENA Administration
--- NOTE | 2020-06-19 12:33 | XRay Report ---
BILATERAL SHOULDER 7 VIEW(S) INDICATION / CLINICAL INFORMATION: deformity COMPARISON: None available. 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 There may also be a deformity of the acromion on the right. 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 Signer Name: Ran Bentley MD Signed: 06/19/2020 12:28 PM Workstation Name: [id number]
[2020-06-19] MEDS: ACETAMINOPHEN 325 MG TAB PO PRN ×3 (13:56→23:00)
[2020-06-19 14:55] LABS: Hematocrit 24.7 % (35.5-45.6); Hemoglobin 8.5 gm/dl (11.8-15.2); Mean Corpuscular HGB Conc 34 % (32-34); Mean Corpuscular Volume 94 fl (84-94); Red Blood Count 2.62 M/mm3 (3.65-5.03)
[2020-06-19 14:58] LABS: Platelet Count 201 K/mm3 (140-440)
[2020-06-19 15:00] LABS: Calcium 7.3 mg/dL (8.4-10.2)
[2020-06-19] MEDS: PRAVASTATIN 20 MG TAB PO SCH (22:11)
[2020-06-20] MEDS: metroNIDAZOLE 250 MG TAB PO SCH ×2 (06:46→13:46)
[2020-06-20 06:54] LABS: Hematocrit 23.9 % (35.5-45.6); Hemoglobin 8.1 gm/dl (11.8-15.2); Mean Corpuscular HGB Conc 34 % (32-34); Mean Corpuscular Volume 97 fl (84-94); Platelet Count 279 K/mm3 (140-440); Red Blood Count 2.48 M/mm3 (3.65-5.03)
[2020-06-20 07:02] LABS: Calcium 7.4 mg/dL (8.4-10.2)
[2020-06-20] MEDS: DICYCLOMINE 10 MG CAP PO SCH ×3 (08:35→20:50)
[2020-06-20] MEDS: SODIUM BICARBONATE 650 MG TAB PO SCH ×3 (08:35→20:50)
[2020-06-20] MEDS: SODIUM BICARBONATE 150 MEQ in WATER FOR INJECTION (PF) 1,000 ML IV SCH (09:02)
[2020-06-20] MEDS: ACETAMINOPHEN 325 MG TAB PO PRN (09:05)
[2020-06-20] MEDS: FAMOTIDINE 20 MG TAB PO SCH (09:06)
[2020-06-20] MEDS: TAMSULOSIN 0.4 MG CAP PO SCH (09:06)
[2020-06-20] MEDS: CALCIUM CARBONATE 500 MG TAB CHEW PO SCH (09:06)
[2020-06-20] MEDS: allopurinoL 100 MG TAB PO SCH (09:06)
[2020-06-20] MEDS: CHOLECALCIFEROL (VIT D3) 1000 UNIT (25 mcg) TAB PO SCH (09:06)
[2020-06-20] MEDS: CHOLESTYRAMINE (WITH SUGAR) 4 GM PACKET PO SCH ×2 (09:07→22:26)
[2020-06-20] MEDS: METOPROLOL TARTRATE 25 MG TAB PO SCH ×2 (09:07→22:25)
--- NOTE | 2020-06-20 10:17 | Vascular Lab Report ---
BILATERAL UPPER EXTREMITY VENOUS DOPPLER ULTRASOUND HISTORY: Upper extremity pain and swelling. COMPARISON: None. TECHNIQUE: Grayscale, color and spectral Doppler imaging of the venous system of both upper extremiti es was performed. FINDINGS: Right Upper Extremity: Internal Jugular Vein: Normal grayscale appearance and flow. Subclavian Vein: Normal grayscale appearance and flow. Axillary Vein: Normal venous flow, compressibility and augmentation. Brachial vein: Normal venous flow, compressibility and augmentation. Radial vein: Normal venous flow, compressibility and augmentation. Ulnar vein: Normal venous flow, compressibility and augmentation. Left Upper Extremity: Internal Jugular Vein: Normal grayscale appearance and flow. Subclavian Vein: Normal grayscale appearance and flow. Axillary Vein: Normal venous flow, compressibility and augmentation. Brachial vein: Normal venous flow, compressibility and augmentation. Radial vein: Normal venous flow, compressibility and augmentation. Ulnar vein: Normal venous flow, compressibility and augmentation. Additional Findings: None. IMPRESSION: 1. No sonographic evidence of deep venous thrombosis in either upper extremity. Signer Name: Xander Lomeli Jr, MD Signed: 06/20/2020 10:13 AM Workstation Name: [id number]
[2020-06-20] MEDS ORDERED: PHOS-NAK POWDER PACKET PO NR (10:30)
[2020-06-20] MEDS ORDERED: POTASSIUM CHLORIDE ER 20 MEQ TAB PO NR ×2 (10:30→12:05)
--- NOTE | 2020-06-20 10:30 | Progress Note ---
Assessment and Plan 1. Acute kidney injury: Vasomotor ISAAC in the setting of shock. Renal US negative for hydro. Monitor renal function. Creatinine level about the same. Avoid nephrotoxic agents. Meds dosage based on GFR. 2. FEN: Hypernatremia, improved. Hypokalemia, replete K, monitor. Metabolic acidosis, Sod bicarb, monitor. Monitor lytes and volume status. 3. Sepsis with shock: Currently off pressors. Monitor BP. 4. UTI: S/p Abx. 5. Acute hypoxemic respiratory failure: CXR clear. COVID test negative. NC O2 as needed. 6. Diarrhea: ?Colitis. C.diff negative. 7. Suspected R kidney mass: CT abdomen showed cyst. 8. Metabolic encephalopathy: Monitor. 9. H/o Dementia: Supportive care. 10. H/o HTN: Monitor BP. 11. Anemia, POA: Monitor. Subjective: Patient was seen and examined at the bedside. No new complaint. Objective: General appearance: well-developed, appears stated age, not in distress HEENT: ATNC Neck: trachea midline Respiratory: ctab Heart: regular, S1S2, no murmur Gastrointestinal: soft, normoactive bowel sounds, not tender Integumentary: no rash, warm and dry Ext: no edema Neurologic: alert, not following any command, confusion noted Ext: trace LE edema : Hair catheter Subjective Date of service: 06/20/20 Principal diagnosis: shock Objective - Vital Signs Vital signs: Vital Signs - 12hr 06/19/20 06/20/20 06/20/20 23:14 03:25 07:33 Temperature 103.1 F H 98.2 F 100.6 F H Pulse Rate 103 H 97 H 94 H Pulse Rate [ Left Radial] Pulse Rate [ Right Radial] Respiratory 19 18 15 Rate Blood Pressure 116/53 131/61 145/58 O2 Sat by Pulse 97 99 93 Oximetry 06/20/20 06/20/20 06/20/20 08:33 09:05 09:07 Temperature Pulse Rate 74 Pulse Rate [ 79 Left Radial] Pulse Rate [ 79 Right Radial] Respiratory 18 17 Rate Blood Pressure 138/61 O2 Sat by Pulse 97 Oximetry 06/20/20 09:15 Temperature 99.1 F Pulse Rate Pulse Rate [ Left Radial] Pulse Rate [ Right Radial] Respiratory Rate Blood Pressure O2 Sat by Pulse Oximetry - Lab 06/20/20 06:00 04/19/21 06:00 Most recent lab results ABG pH 7.329 pH Units (7.350-7.450) L 06/06/20 11:18 ABG pCO2 27.8 mm Hg 06/06/20 11:18 ABG pO2 258.1 mm Hg (80.0-90.0) H 06/06/20 11:18 ABG HCO3 14.3 mmol/L (20.0-26.0) L 06/06/20 11:18 ABG O2 Saturation 99.4 % (95.0-99.0) H 06/06/20 11:18 Calcium 7.4 mg/dL (8.4-10.2) L 06/20/20 06:00 Phosphorus 2.40 mg/dL (2.5-4.5) L 06/20/20 06:00 Magnesium 1.70 mg/dL (1.7-2.3) 06/16/20 04:40 Urine Creatinine 57.0 mg/dL (0.1-20.0) H 06/06/20 21:05 Urine Sodium 85 mmol/L 06/06/20 21:05 Medications & Allergies - Medications Allergies/Adverse Reactions: Allergies No Known Allergies Allergy (Verified 06/06/20 15:21) Home Medications: Home Medications Medication Instructions Recorded Confirmed Last Taken Type Amlodipine Besylate [Norvasc] 5 mg PO QDAY 06/06/20 06/06/20 Unknown History Calcium Carb/Magnesium Hydrox 500 mg PO QDAY 06/06/20 06/06/20 Unknown History [Antacid 1000-200 mg Tab Chew] Cholecalciferol (Vitamin D3) 2,000 unit PO QDAY 06/06/20 06/06/20 Unknown History [Vitamin D3 2,000 UNIT CAP] Dicyclomine [Bentyl] 10 mg PO TID 06/06/20 06/06/20 Unknown History Insulin Lispro [Insulin Lispro 10 unit SQ TID 06/06/20 06/06/20 Unknown History Kwikpen U-100] Magnesium Citrate [Citroma] 296 ml PO QDAY 06/06/20 06/06/20 Unknown History Melatonin [Melatonin 3MG TAB] 6 mg PO QHS 06/06/20 06/06/20 Unknown History Pantoprazole [Protonix TAB] 40 mg PO QDAY 06/06/20 06/06/20 Unknown History Pioglitazone HCl [Actos] 30 mg PO QDAY 06/06/20 06/06/20 Unknown History Pravastatin Sodium [Pravastatin] 10 mg PO QHS 06/06/20 06/06/20 Unknown History allopurinoL [Zyloprim] 100 mg PO QDAY 06/06/20 06/06/20 Unknown History Cholestyramine (with Sugar) 4 gm PO BID #60 packet 06/17/20 Unknown Rx [Questran] Famotidine [Pepcid] 20 mg PO QDAY #30 tablet 06/17/20 Unknown Rx Metoprolol [Lopressor TAB] 25 mg PO BID #60 tablet 06/17/20 Unknown Rx Sodium Bicarbonate 650 mg PO TID #30 tablet 06/17/20 Unknown Rx Tamsulosin [Flomax] 0.4 mg PO QDAY #30 capsule 06/17/20 Unknown Rx Active Medications: Generic Name Dose Route Start Last Admin Trade Name Freq PRN Reason Stop Dose Admin Acetaminophen 650 mg 06/06/20 15:00 06/20/20 09:05 Acetaminophen 325 Mg Tab PO 650 mg Q6H PRN Administration Pain, Mild (1-3) Albuterol 2.5 mg 06/06/20 15:00 Albuterol 2.5 Mg/3 Ml Nebu IH Q3HRT PRN Shortness Of Breath Allopurinol 100 mg 06/07/20 10:00 06/20/20 09:06 Allopurinol 100 Mg Tab PO 100 mg QDAY YELENA Administration Calcium Carbonate/Glycine 500 mg 06/07/20 10:00 06/20/20 09:06 Calcium Carbonate 500 Mg Tab Chew PO 500 mg QDAY YELENA Administration Cholecalciferol 2,000 unit 06/07/20 10:00 06/20/20 09:06 Cholecalciferol (Vit D3) 1000 Unit (25 Mcg) Tab PO 2,000 unit QDAY YELENA Administration Cholestyramine Resin 4 gm 06/12/20 22:00 06/20/20 09:07 Cholestyramine (With Sugar) 4 Gm Packet PO 4 gm BID YELENA Administration Dicyclomine HCl 10 mg 06/06/20 20:00 06/20/20 08:35 Dicyclomine 10 Mg Cap PO 10 mg TID YELENA Administration Famotidine 20 mg 06/13/20 10:00 06/20/20 09:06 Famotidine 20 Mg Tab PO 20 mg QDAY YELENA Administration Sodium Bicarbonate 150 meq/ 1,150 mls @ 75 mls/hr 06/18/20 09:00 06/20/20 09:02 Sterile Water IV 75 mls/hr DIRECT YELENA Administration Magnesium Citrate 300 ml 06/06/20 16:20 Magnesium Citrate 300 Ml Oral Liqd PO QDAY PRN Constipation Metoprolol Tartrate 25 mg 06/09/20 22:00 06/20/20 09:07 Metoprolol Tartrate 25 Mg Tab PO 25 mg BID YELENA Administration Metronidazole 250 mg 06/18/20 14:00 06/20/20 06:46 Metronidazole 250 Mg Tab PO 250 mg Q8HR YELENA Administration Protocol Pravastatin Sodium 10 mg 06/06/20 22:00 06/19/20 22:11 Pravastatin 20 Mg Tab PO 10 mg QHS YELENA Administration Sodium Bicarbonate 650 mg 06/16/20 20:00 06/20/20 08:35 Sodium Bicarbonate 650 Mg Tab PO 650 mg TID YELENA Administration Sodium Chloride 10 ml 06/06/20 15:00 06/20/20 09:07 Sodium Chloride 0.9% 10 Ml Flush Syringe IV 10 ml BID YELENA Administration Sodium Chloride 10 ml 06/06/20 15:00 Sodium Chloride 0.9% 10 Ml Flush Syringe IV PRN PRN LINE FLUSH Tamsulosin HCl 0.4 mg 06/14/20 11:00 06/20/20 09:06 Tamsulosin 0.4 Mg Cap PO 0.4 mg QDAY YELENA Administration
--- NOTE | 2020-06-20 11:59 | Progress Note ---
Assessment and Plan Assessment and plan: This is a 80-year-old male who is a resident of assisted living facility with vascular dementia, cerebral sclerosis, debility, diabetes mellitus who presents to the emergency department on 06/06 with complaints of lethargy and diminished cognition as per daughter he developed an episode of unresponsiveness while at breakfast at at his assisted living facility. Patient was found to have a urinary tract infection complicated by sepsis and septic shock, acute kidney injury, toxic metabolic encephalopathy as well as metabolic acidosis. Patient was hypotensive with systolic blood pressures in the 50s and was initiated on vasopressor support in the emergency department. Patient was admitted to the hospital service with consults to nephrology and [facility]. Septic Shock Metabolic encephalopathy Coag negative Staphylococcus / bottles Urinary tract infection Possible ISCHEMIC COLITIS Acute hypoxic respiratory failure Acute kidney injury secondary to vasomotor nephropathy Metabolic acidosis persist Diarrhea Dementia Hypertension Anemia 06/07: Patient remains on dopamine, vasopressin and Levophed. Nephrology has started the patient on sodium bicarbonate drip for metabolic acidosis. Infectious disease initiated vancomycin in addition to the cefepime and ordered a C. difficile. 06/08: Patient has gram-positive cocci bacteremia in 03/07 bottles which grew to be coag negative staph coccus and he has repeat blood cultures in progress. Urine culture has no growth to date and he is on IV vancomycin and cefepime. Yesterday we ordered a C. difficile PCR which is pending. Patient had a moment of tachycardia into the 130s and a stat EKG was obtained. Patient was given amiodarone bolus by [facility] and cardiology was consulted. Patient is hyperchloremic today however his metabolic acidosis and BUN/creatinine is slightly improved to 93/3.2 from 100/3.6 and his repeat lactic acid is 1.5. At the time my examination patient was on Levophed at 6, vasopressin 0.03 and dopamine at 6. This morning patient failed his swallow eval and ST evaluation was ordered. Of note patient's echocardiogram shows reduced 15 to 20% with borderline left ventricular hypertrophy. 06/09: This morning his speech evaluation was completed and he has been cleared for mechanical soft diet with thin liquids. Patient complained of right-sided chest pain with radiation to shoulders and a stat EKG cardiac enzymes were ordered. Patient was recultured yesterday and those have no growth to date and his vancomycin was stopped. Infectious disease team recommends removal of Torres catheter when feasible and a CT abdomen/pelvis when stable. Patient has been cleared to transfer to the floor by cardiology and [facility]. 06/10/2020; patient is on IV cefepime for sepsis due to UTI day 3 out of 5. Vancomycin discontinued. Patient is complaining pleuritic chest pain. Patient was evaluated by cardiology for elevated troponin and episode of A. fib on admission. Cardiology discontinued amiodarone and put her on Lopressor. Cardio logy recommend against anticoagulation because of patient's anemia. Hemoglobin this morning was 7.4 and anemia work-up is in progress. I did ordered CT abdomen and pelvis. PT OT evaluation. Patient has ISAAC and nephrology is following. Patient has rectal tube and liquid stool in the bag. I ordered stool for C. difficile. We will continue to monitor. 06/11/2020; patient is on cefepime day 4. CT abdomen and pelvis was done and significant for colitis, ischemic colitis is possibility given hypotension and elevated lactic acid level. I will consult GI. Patient has episode of A. fib for less than 24 hours, cardiology was consulted and recommend to be on Lopressor. No need for coagulation because of his anemia. Hemoglobin this morning is improved to 8. Anemia work-up was done, no iron deficiency anemia identified. ISAAC is improving. C. difficile was negative. 06/12/2020; continue cefepime per ID recommendation. CT abdomen and pelvis is significant for ischemic colitis likely due to septic shock, hypotension. Patient was seen by GI and recommend no further intervention at this time. Patient had episode of A. fib on admission for less than 24 hours and cardiology recommend to continue on Lopressor, no anticoagulation needed. Hemoglobin is improving. Patient came from assisted living facility. Patient need Covid test before discharge. ISAAC is improving. Creatinine this morning was 1.7. Nephrology is following. OT evaluated and recommend subacute rehab, PT evalua tion is pending. 06/13: Replace K and Mag, continue to monitor renal fuction, Continue abx per ID, c.diff negative. patient still with Rectal tube and Torres but will re- evaluate for possible discontinuation. Questran started by GI. Will continue to monitor and replace electrolytes Discussed with nursing staff to change torres to condom catheter CM to try and ascertain patients functional status prior to hospitalization 06/14: Patient showing some clinical improvement Torres replaced due to urinary retention about 1000 cc of clear urine removed. Flomax started. PT OT consulted as patient is noted to have been ambulatory prior to this admission will likely need SNF placement. Diarrhea consistency is improving anticipate discharge in 24 to 48 hours once approval is obtained. Cardiology input is noted Lopressor 25 mg p.o. twice daily possible addition of SABIHA inhibitor or ARB when okay with nephrology as regular this is a is improving. At this time no AC for A. fib management due to anemia and the transient nature of the A. fib which was less than 24 hours. 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 Unknown etiology or chronicity of these diagnoses. No current clinical evidence of acutely decompensated HF. Per [facility] records, pt saw [facility] in 1998 and underwent LHC which did not show any significant findings. Continue with conservative cardiac management given pt's advanced age, dementia and multiple co-morbidities. Recommend pt follow up in our office with Dr. Rosa within 2 weeks of discharge ([phone]). 06/15: Continue supportive care. Will give a unit of PRBC and anticipate discharge today or tomorrow once approval from insurance company obtained. PATIENT will need urology follow up outpatient and also cardiology outpatient. Discussed with patient and Case management Continue PT OT 06/16: Still awaiting prior approval from the insurance company for patient to be discharged. Continue supportive care thrombocytopenia noted again antiplatelets are on hold. We will continue to monitor anticipate discharge once prior authorization is received from insurance [employer]. Continue rehab therapy while in house 06/17: Severe hyperkalemia noted in the setting of renal dysfunction. Will hold discharge. Also patient with intermittent fevers culture still on resolved. Bolus of fluid given will also give some Kayexalate to correct hyperkalemia. 06/18: Still with low-grade fever. White count still normal. Potassium mild hypokalemia. Will monitor closely renal function showing some improvement. If continues to improve we will anticipate discharge tomorrow. Still with elevated troponin but improved compared to prior. No respiratory compromise noted at this time diarrhea still present. Will discuss with ID if patient should empirically be treated with p.o. vancomycin despite negative C. difficile for with Flagyl. 06/19: Considering noted deformity on bilateral shoulders will obtain an x-ray just to ensure that there is no other acute event. I reviewed the chart and not has been done. Continue bicarb drip may need to decrease rate but will defer to agency service coordinator. Awaiting labs from today. Anticipate discharge in a.m. we will also rule out bilateral upper extremity DVT due to the swelling. 06/20: Patient is a 80-year-old male who presented to the hospital for dialysis related facility with complaints of lethargy diminished cognition diagnosed with septic shock with diarrhea but with C. difficile negative during hospital stay was noted to be cardiac arrhythmia with tachycardia resolved with amiodarone. Was also noted to have ISAAC likely secondary to ATN showed some improvement and stabilized. Diarrhea persisted was managed with fecal management system with ID input noted. Fortunately the past few days has been having recurrent fever today noted to have a distended abdomen although nontender CT abdomen and pelvis with oral contrast was added following clearance from agency service coordinator. History Interval history: Patient seen and examined, patient reports no new complaints today. Still with high fever overnight, Continue supportive care, Diarrhea decreased in quantity Hospitalist Physical - Physical exam Narrative exam: Not in cardiopulmonary distress. The patient appeared well nourished and normally developed. Currently in due to severe debility Vital signs as documented. Head exam is unremarkable. No scleral icterus . Neck is without jugular venous distension, thyromegaly, or carotid bruits. Lungs are clear to auscultation. Cardiac exam reveals regular rate and Rhythm. Abdominal exam reveals Distended, normal bowel sounds, nontender, no organomegaly. Rectal tube in place. Extremities are with plus 1 pitting edema in upper and lower ext and both femoral and pedal pulses are normal. PLANT GUIDE: Alert, cooperative, - Constitutional Vitals: Temp Pulse Resp BP Pulse Ox 99.1 F 74 15 138/61 97 06/20/20 09:15 06/20/20 09:07 06/20/20 10:05 06/20/20 09:07 06/20/20 08:33 General appearance: Present: no acute distress, well-nourished HEART Score - HEART Score Troponin: Troponin T 0.141 ng/mL (0.00-0.029) H* 06/18/20 10:39 Results - Labs CBC & Chem 7: 06/20/20 06:00 06/20/20 06:00 Labs: Laboratory Last Values WBC 4.9 K/mm3 (4.5-11.0) 06/20/20 06:00 RBC 2.48 M/mm3 (3.65-5.03) L 06/20/20 06:00 Hgb 8.1 gm/dl (11.8-15.2) L 06/20/20 06:00 Hct 23.9 % (35.5-45.6) L 06/20/20 06:00 MCV 97 fl (84-94) H 06/20/20 06:00 MCH 33 pg (28-32) H 06/20/20 06:00 MCHC 34 % (32-34) 06/20/20 06:00 RDW 14.0 % (13.2-15.2) 06/20/20 06:00 Plt Count 279 K/mm3 (140-440) 06/20/20 06:00 Lymph % (Auto) 6.8 % (13.4-35.0) L 06/13/20 06:13 Bucks % (Auto) 5.0 % (0.0-7.3) 06/13/20 06:13 Eos % (Auto) 1.7 % (0.0-4.3) 06/13/20 06:13 Baso % (Auto) 0.2 % (0.0-1.8) 06/13/20 06:13 Lymph # (Auto) 0.9 K/mm3 (1.2-5.4) L 06/13/20 06:13 Bucks # (Auto) 0.7 K/mm3 (0.0-0.8) 06/13/20 06:13 Eos # (Auto) 0.2 K/mm3 (0.0-0.4) 06/13/20 06:13 Baso # (Auto) 0.0 K/mm3 (0.0-0.1) 06/13/20 06:13 Add Manual Diff Complete 06/16/20 12:50 Total Counted 100 06/16/20 12:50 Seg Neutrophils % 86.3 % (40.0-70.0) H 06/13/20 06:13 Seg Neuts % (Manual) 65.0 % (40.0-70.0) 06/16/20 12:50 Band Neutrophils % 20.0 % 06/16/20 12:50 Lymphocytes % (Manual) 6.0 % (13.4-35.0) L 06/16/20 12:50 Reactive Lymphs % (Man) 1.0 % 06/12/20 05:24 Monocytes % (Manual) 9.0 % (0.0-7.3) H 06/16/20 12:50 Eosinophils % (Manual) 2.0 % (0.0-4.3) 06/12/20 05:24 Nucleated RBC % Not Reportable 06/16/20 12:50 Seg Neutrophils # 11.9 K/mm3 (1.8-7.7) H 06/13/20 06:13 Seg Neutrophils # Man 7.2 K/mm3 (1.8-7.7) 06/16/20 12:50 Band Neutrophils # 2.2 K/mm3 06/16/20 12:50 Lymphocytes # (Manual) 0.7 K/mm3 (1.2-5.4) L 06/16/20 12:50 Abs React Lymphs (Man) 0.0 K/mm3 06/16/20 12:50 Monocytes # (Manual) 1.0 K/mm3 (0.0-0.8) H 06/16/20 12:50 Eosinophils # (Manual) 0.0 K/mm3 (0.0-0.4) 06/16/20 12:50 Basophils # (Manual) 0.0 K/mm3 (0.0-0.1) 06/16/20 12:50 Metamyelocytes # 0.0 K/mm3 06/16/20 12:50 Myelocytes # 0.0 K/mm3 06/16/20 12:50 Promyelocytes # 0.0 K/mm3 06/16/20 12:50 Blast Cells # 0.0 K/mm3 06/16/20 12:50 WBC Morphology Not Reportable 06/16/20 12:50 Hypersegmented Neuts Not Reportable 06/16/20 12:50 Hyposegmented Neuts Not Reportable 06/16/20 12:50 Hypogranular Neuts Not Reportable 06/16/20 12:50 Smudge Cells Not Reportable 06/16/20 12:50 Toxic Granulation Not Reportable 06/16/20 12:50 Toxic Vacuolation Not Reportable 06/16/20 12:50 Dohle Bodies Not Reportable 06/16/20 12:50 Pelger-Huet Anomaly Not Reportable 06/16/20 12:50 Denys Rods Not Reportable 06/16/20 12:50 Platelet Estimate Consistent w auto 06/16/20 12:50 Clumped Platelets Rare 06/16/20 12:50 Plt Clumps, EDTA Not Reportable 06/16/20 12:50 Large Platelets Rare 06/16/20 12:50 Giant Platelets Not Reportable 06/16/20 12:50 Platelet Satelliting Not Reportable 06/16/20 12:50 Plt Morphology Comment Not Reportable 06/16/20 12:50 RBC Morphology Normal 06/16/20 12:50 Dimorphic RBCs Not Reportable 06/16/20 12:50 Polychromasia Not Reportable 06/16/20 12:50 Hypochromasia Not Reportable 06/16/20 12:50 Poikilocytosis Not Reportable 06/16/20 12:50 Anisocytosis Not Reportable 06/16/20 12:50 Microcytosis Not Reportable 06/16/20 12:50 Macrocytosis Not Reportable 06/16/20 12:50 Spherocytes Not Reportable 06/16/20 12:50 Pappenheimer Bodies Not Reportable 06/16/20 12:50 Sickle Cells Not Reportable 06/16/20 12:50 Target Cells Not Reportable 06/16/20 12:50 Tear Drop Cells Not Reportable 06/16/20 12:50 Ovalocytes Not Reportable 06/16/20 12:50 Helmet Cells Not Reportable 06/16/20 12:50 [place] Bodies Not Reportable 06/16/20 12:50 [place] Rings Not Reportable 06/16/20 12:50 Odell Cells Not Reportable 06/16/20 12:50 Bite Cells Not Reportable 06/16/20 12:50 Crenated Cell Not Reportable 06/16/20 12:50 Elliptocytes Not Reportable 06/16/20 12:50 Acanthocytes (Spur) Not Reportable 06/16/20 12:50 Rouleaux Not Reportable 06/16/20 12:50 Hemoglobin C Crystals Not Reportable 06/16/20 12:50 Schistocytes Not Reportable 06/16/20 12:50 Malaria parasites Not Reportable 06/16/20 12:50 Chance Bodies Not Reportable 06/16/20 12:50 Hem Pathologist Commnt No 06/16/20 12:50 PT 16.3 Sec. (12.2-14.9) H 06/06/20 10:19 INR 1.33 (0.87-1.13) H 06/06/20 10:19 APTT 31.6 Sec. (24.2-36.6) 06/06/20 10:19 ABG pH 7.329 pH Units (7.350-7.450) L 06/06/20 11:18 ABG pCO2 27.8 mm Hg 06/06/20 11:18 ABG pO2 258.1 mm Hg (80.0-90.0) H 06/06/20 11:18 ABG HCO3 14.3 mmol/L (20.0-26.0) L 06/06/20 11:18 ABG O2 Saturation 99.4 % (95.0-99.0) H 06/06/20 11:18 ABG O2 Content 13.2 (0.0-44) 06/06/20 11:18 ABG Base Excess -10.5 mmol/L (-2.0-3.0) L 06/06/20 11:18 ABG Hemoglobin 9.1 gm/dl (14.0-18.0) L 06/06/20 11:18 ABG Carboxyhemoglobin 1.3 % (0.0-5.0) 06/06/20 11:18 ABG Methemoglobin Not Reportable 06/06/20 11:18 VBG pH 7.438 (7.320-7.420) H 06/06/20 10:19 Oxyhemoglobin 98.2 % (95.0-99.0) 06/06/20 11:18 FiO2 21 % 06/06/20 11:18 Sodium 138 mmol/L (137-145) 06/20/20 06:00 Potassium 3.0 mmol/L (3.6-5.0) L D 06/20/20 06:00 Chloride 102.2 mmol/L (98-107) 06/20/20 06:00 Carbon Dioxide 25 mmol/L (22-30) 06/20/20 06:00 Anion Gap 14 mmol/L 06/20/20 06:00 BUN 33 mg/dL (9-20) H 06/20/20 06:00 Creatinine 1.7 mg/dL (0.8-1.3) H 06/20/20 06:00 Estimated GFR 47 ml/min 06/20/20 06:00 BUN/Creatinine Ratio 19 % 06/20/20 06:00 Glucose 99 mg/dL (75-100) 06/20/20 06:00 POC Glucose 90 mg/dL (70-105) 06/20/20 07:35 Lactic Acid 1.50 mmol/L (0.7-2.0) 06/08/20 05:15 Calcium 7.4 mg/dL (8.4-10.2) L 06/20/20 06:00 Phosphorus 2.40 mg/dL (2.5-4.5) L 06/20/20 06:00 Magnesium 1.70 mg/dL (1.7-2.3) 06/16/20 04:40 Iron 54 ug/dL (49-181) 06/10/20 10:44 TIBC 157 mcg/dL (250-450) L 06/10/20 10:44 Ferritin 569.5 ng/mL (30.0-300.0) H 06/10/20 10:44 Total Bilirubin 0.20 mg/dL (0.1-1.2) 06/14/20 05:23 AST 19 units/L (5-40) 06/14/20 05:23 ALT 20 units/L (7-56) 06/14/20 05:23 Alkaline Phosphatase 55 units/L (35-129) 06/14/20 05:23 Ammonia 64.0 umol/L (25-60) H 06/06/20 10:19 Total Creatine Kinase 1212 units/L (55-170) H 06/09/20 12:57 CK-MB (CK-2) 12.1 ng/mL (0.0-4.0) H 06/09/20 12:57 CK-MB (CK-2) Rel Index 0.9 (0-4) 06/09/20 12:57 Troponin T 0.141 ng/mL (0.00-0.029) H* 06/18/20 10:39 Total Protein 4.9 g/dL (6.3-8.2) L 06/14/20 05:23 Albumin 2.4 g/dL (3.9-5) L 06/14/20 05:23 Albumin/Globulin Ratio 1.0 % 06/14/20 05:23 Triglycerides 103 mg/dL (2-149) 06/06/20 10:19 Cholesterol 84 mg/dL (50-199) 06/06/20 10:19 LDL Cholesterol Direct 28 mg/dL (50-130) L 06/06/20 10:19 HDL Cholesterol 44 mg/dL (40-59) 06/06/20 10:19 Cholesterol/HDL Ratio 1.90 % 06/06/20 10:19 Vitamin B12 1170 pg/mL (211-911) H 06/10/20 14:49 TSH 4.440 mlU/mL (0.270-4.200) H 06/06/20 10:19 Free T4 1.55 ng/dL (0.76-1.46) H 06/06/20 10:19 PTH Intact 271.9 pg/mL (15-65) H 06/08/20 05:15 Urine Color Yellow (Yellow) 06/06/20 14:02 Urine Turbidity Cloudy (Clear) 06/06/20 14:02 Urine pH 6.0 (5.0-7.0) 06/06/20 14:02 Ur Specific [place] 1.013 (1.003-1.030) 06/06/20 14:02 Urine Protein 100 mg/dl mg/dL (Negative) 06/06/20 14:02 Urine Glucose (UA) Neg mg/dL (Negative) 06/06/20 14:02 Urine Ketones Neg mg/dL (Negative) 06/06/20 14:02 Urine Blood Sm (Negative) 06/06/20 14:02 Urine Nitrite Neg (Negative) 06/06/20 14:02 Urine Bilirubin Neg (Negative) 06/06/20 14:02 Urine Urobilinogen < 2.0 mg/dL (<2.0) 06/06/20 14:02 Ur Leukocyte Esterase Lg (Negative) 06/06/20 14:02 Urine WBC (Auto) > 182.0 /HPF (0.0-6.0) H 06/06/20 14:02 Urine RBC (Auto) 55.0 /HPF (0.0-6.0) 06/06/20 14:02 U Epithel Cells (Auto) 1.0 /HPF (0-13.0) 06/06/20 14:02 Urine WBC Clumps 2+ /HPF 06/06/20 14:02 Urine Creatinine 57.0 mg/dL (0.1-20.0) H 06/06/20 21:05 Urine Sodium 85 mmol/L 06/06/20 21:05 Random Vancomycin 9.8 ug/mL (0-40.0) 06/09/20 04:30 Urine Opiates Screen Presumptive negative 06/06/20 14:02 Urine Methadone Screen Presumptive negative 06/06/20 14:02 Ur Barbiturates Screen Presumptive negative 06/06/20 14:02 Ur Phencyclidine Scrn Presumptive negative 06/06/20 14:02 Ur Amphetamines Screen Presumptive negative 06/06/20 14:02 U Benzodiazepines Scrn Presumptive negative 06/06/20 14:02 Urine Cocaine Screen Presumptive negative 06/06/20 14:02 U Marijuana (THC) Screen Presumptive negative 06/06/20 14:02 Drugs of Abuse Note Disclamer 06/06/20 14:02 Plasma/Serum Alcohol < 0.01 % (0-0.07) 06/06/20 10:19 C. difficile Tox (PCR) Negative (Negative) 06/08/20 Unknown Coronavirus (PCR) Negative (Negative) 06/14/20 10:35 Blood Type O POSITIVE 06/15/20 11:00 Antibody Screen Negative 06/15/20 11:00 Crossmatch See Detail 06/15/20 11:00 Microbiology: Microbiology 06/16/20 17:49 Peripheral/Venous Blood Culture - Preliminary NO GROWTH AFTER 72 HOURS 06/16/20 17:49 Peripheral/Venous Blood Culture - Preliminary NO GROWTH AFTER 72 HOURS Torres/IV: Voiding Method Indwelling Catheter Active Medications - Current Medications Current Medications: Generic Name Dose Route Start Last Admin Trade Name Freq PRN Reason Stop Dose Admin Acetaminophen 650 mg 06/06/20 15:00 06/20/20 09:05 Acetaminophen 325 Mg Tab PO 650 mg Q6H PRN Administration Pain, Mild (1-3) Albuterol 2.5 mg 06/06/20 15:00 Albuterol 2.5 Mg/3 Ml Nebu IH Q3HRT PRN Shortness Of Breath Allopurinol 100 mg 06/07/20 10:00 06/20/20 09:06 Allopurinol 100 Mg Tab PO 100 mg QDAY YELENA Administration Calcium Carbonate/Glycine 500 mg 06/07/20 10:00 06/20/20 09:06 Calcium Carbonate 500 Mg Tab Chew PO 500 mg QDAY YELENA Administration Cholecalciferol 2,000 unit 06/07/20 10:00 06/20/20 09:06 Cholecalciferol (Vit D3) 1000 Unit (25 Mcg) Tab PO 2,000 unit QDAY YELENA Administration Cholestyramine Resin 4 gm 06/12/20 22:00 06/20/20 09:07 Cholestyramine (With Sugar) 4 Gm Packet PO 4 gm BID YELENA Administration Dicyclomine HCl 10 mg 06/06/20 20:00 06/20/20 08:35 Dicyclomine 10 Mg Cap PO 10 mg TID YELENA Administration Famotidine 20 mg 06/13/20 10:00 06/20/20 09:06 Famotidine 20 Mg Tab PO 20 mg QDAY YELENA Administration Sodium Bicarbonate 150 meq/ 1,150 mls @ 75 mls/hr 06/18/20 09:00 06/20/20 09:02 Sterile Water IV 75 mls/hr DIRECT YELENA Administration Magnesium Citrate 300 ml 06/06/20 16:20 Magnesium Citrate 300 Ml Oral Liqd PO QDAY PRN Constipation Metoprolol Tartrate 25 mg 06/09/20 22:00 06/20/20 09:07 Metoprolol Tartrate 25 Mg Tab PO 25 mg BID YELENA Administration Metronidazole 250 mg 06/18/20 14:00 06/20/20 06:46 Metronidazole 250 Mg Tab PO 250 mg Q8HR YELENA Administration Protocol Potassium Chloride 40 meq 06/20/20 10:30 Potassium Chloride Er 20 Meq Tab PO 06/20/20 12:00 ONCE NR Potassium Phos/Sodium Phos 2 each 06/20/20 10:30 Phos-Nak Powder Packet PO 06/20/20 12:00 ONCE NR Pravastatin Sodium 10 mg 06/06/20 22:00 06/19/20 22:11 Pravastatin 20 Mg Tab PO 10 mg QHS YELENA Administration Sodium Bicarbonate 650 mg 06/16/20 20:00 06/20/20 08:35 Sodium Bicarbonate 650 Mg Tab PO 650 mg TID YELENA Administration Sodium Chloride 10 ml 06/06/20 15:00 06/20/20 09:07 Sodium Chloride 0.9% 10 Ml Flush Syringe IV 10 ml BID YELENA Administration Sodium Chloride 10 ml 06/06/20 15:00 Sodium Chloride 0.9% 10 Ml Flush Syringe IV PRN PRN LINE FLUSH Tamsulosin HCl 0.4 mg 06/14/20 11:00 06/20/20 09:06 Tamsulosin 0.4 Mg Cap PO 0.4 mg QDAY YELENA Administration Nutrition/Malnutrition Assess - Dietary Evaluation Nutrition/Malnutrition Findings: Nutrition Notes Start: 06/08/20 11:43 Freq: Status: Active Protocol: Document 06/16/20 14:34 CW (Rec: 06/16/20 14:47 CW [email or web address]) Nutrition Notes Initial or Follow up Reassessment Current Diagnosis Acute Kidney Injury,Diabetes, Hypertension Other Pertinent Diagnosis AMS, Dementia, UTI, metabolic encephalopathy, ?s/p CVA? Current Diet Mechanical soft diet + ONS BID Labs/Tests BUN 21 Cr 1.4 Pertinent Medications K4PO3 in NS at 85 ml/hr Height 5 ft 8 in Weight 101.2 kg [place] Body Weight (kg) 70.00 BMI 33.9 Weight change and time frame weight change likely d/t error Weight Status Appropriate Subjective/Other Information F/U for intakes and ONS. Pt eating more of meals. Approximately 50% per tech and drinks 75% of ONS. Pt receives feeding assist. Will continue ONS at TID until intake stablizes Percent of energy/protein needs met: 104%/123% Burn Absent Trauma Absent GI Symptoms Diarrhea Difficulty In Swallowing Skin Integrity/Comment Stage 1 pressure ulcer Current % PO Fair (50-74%) Minimum of two criteria No Fluid Accumulation Mild (non-severe) #2 Nutrition Diagnosis Increased nutrient needs ( specify in comment below) Diagnosis Progress(for reassessment Continues documentation) #1 Nutrition Diagnosis Inadequate oral intake As Evidenced by Signs and Symptoms Pt eating 50% of meals Diagnosis Progress(for reassessment Improved documentation) Is patient on ventilator? No Is Patient Ambulatory and/or Out of Bed Yes REE-([facility]-ambulatory/OOB) [ 6221.950 [id number]] Kcal/Kg value to use for calculation 18 Approximate Energy Requirements Using 1822 kcal/Kg Calculation Used for Recommendations [facility] Additional Notes protein needs: 62 - 153g (0.8 - 1.2g/kgBW for ISAAC) fluid needs: 1 ml/kcal Nutrition Intervention Change Diet Order: Continue Mechanical Soft Diet and ONS Add Supplement/Snack (indicate name/kcal Nepro TID /protein ) Provides kCal: 1,275 Provides Protein (gm) 57 Goal #1 Meet at least 75% of kcal and proteins via PO Goal #2 wound healing Anticipated Discharge Needs: Mechanical Soft diet + ONS PRN Follow-Up By: 06/21/20 Additional Comments F/U intakes and ONS tolerance
--- NOTE | 2020-06-20 14:29 | Cat Scan Report ---
CT ABDOMEN PELVIS WITHOUT CONTRAST INDICATION / CLINICAL INFORMATION: FEVER, abdominal distension,. TECHNIQUE: Axial CT images were obtained through the abdomen and pelvis without IV contrast. All CT scans at [facility] location are performed using CT dose reduction for ALARA by means of automated exposure control. COMPARISON: Exam is compared to 06/10/2020 FINDINGS: Exam is of limited diagnostic quality secondary to patient's arm position as well as lack of intraven ous contrast and lack of intra-abdominal body fat LOWER CHEST: Bronchiectasis is present right lower lobe. Patchy parenchymal changes left lower lobe w ith a left pleural effusion. Resolved right pleural effusion and improved aeration right lower lobe a s compared to previous exam LIVER: No significant abnormality. GALLBLADDER: No significant abnormality. BILE DUCTS: No significant abnormality. PANCREAS: No significant abnormality. SPLEEN: No significant abnormality. ADRENALS: No significant abnormality. RIGHT KIDNEY and URETER: No significant abnormality. LEFT KIDNEY and URETER: No significant abnormality. STOMACH and SMALL BOWEL: No significant abnormality. COLON: Multiple loops of distended colon noted more pronounced on previous exam. PERITONEUM: No free fluid. No free air. No fluid collection. LYMPH NODES: No significant adenopathy. AORTA and ARTERIES: Calcified atherosclerotic plaque abdominal aorta is major branches IVC and VEINS: No significant abnormality. URINARY BLADDER: Hair catheters present within the urinary bladder REPRODUCTIVE ORGANS: No significant abnormality ADDITIONAL FINDINGS: Anasarca SKELETAL SYSTEM: Severe degenerative changes of the lumbar spine. Right hip nailing in place. IMPRESSION: 1. Persistent abnormal appearance of the gastrointestinal tract-colon 2. Improved aeration right lower lobe 3. Bronchiectasis right lower lobe 4. Patchy parenchymal changes left lower lobe with a small left pleural effusion Signer Name: Yony Obregon MD Signed: 06/20/2020 2:24 PM Workstation Name: [id number] ,
--- NOTE | 2020-06-20 15:19 | Progress Note ---
Assessment and Plan Cultures: Blood culture 06/06/2020 coagulase-negative staph 1 out of 4 Blood culture 06/08/2020 no growth today C. difficile PCR negative SARS-CoV-2 PCR negative Urine culture 06/07/2020 no growth Assessment: 80 years old male with history of dementia, CVA, debility, diabetes mellitus, secondary to few hours of unresponsiveness at breakfast at his assisted living facility: #Sepsis with septic shock: Resolved, remarkable improvement, off pressors; source UTI +/- colitis. Completed cefepime 5 days #Extensive colitis: remains with large foul smelling diarrhea. seen on CT ? ischemia. C diff neg #Coagulase-negative staph bacteremia: 1 out of 4 likely contaminant. #Acute hypoxemic respiratory failure: now on NC O2. CXR clear. SARS-CoV-2 PCR negative. #UTI: with hematuria, urine culture no growth #Acute encephalopathy: due to sepsis> CT no acute changes. Resolved. #ISAAC: ? from sepsis, a little worse now #RVR A. fib: On amiodarone, cardiology on board #Thrombocytopenia: Monitor platelets, likely due to sepsis, resolved. Recommendations: -Avoid laxative -repeated blood cultures with recurring fevers -Started Levaquin 750mg q48h and Flagyl 500mg q8h given abnormal CT GNima Rowley MD [facility] ([facility] O: [phone] F: [phone] Subjective Date of service: 06/20/20 Principal diagnosis: shock Interval history: Febrile to 103.1 yesterday night with a white count 4.9. Imaging personally reviewed: CT abdomen pelvis: persistent abnormal appearance of the GI tract. Objective - Exam Narrative Exam: General appearance: Alert in NAD on NC O2 Eyes: anicteric sclerae, moist conjunctivae; no lid-lag; PERRLA HENT: Normocephalic, Atraumatic; normal external ears, nares open, edentulous Neck: supple, tracheal midline, no JVD Lungs: Clear to auscultation bilaterally CV: RRR no murmur Abdomen: Soft, nontender, ventral hernia Extremities: no edema, no cyanosis Skin: No rash. Psych: no agitated Neuro: Alert, follows simple commands - Constitutional Vitals: Vital Signs Temp Pulse Resp BP Pulse Ox 98.7 F 88 17 117/67 99 06/20/20 11:59 06/20/20 13:53 06/20/20 11:59 06/20/20 11:59 06/20/20 11:59 Temperature -Last 24 Hours Temperature 98.7 F Temperature 99.1 F Temperature 100.6 F Temperature 98.2 F Temperature 103.1 F Temperature 103.0 F Temperature 100.4 F - Labs CBC & Chem 7: 06/20/20 06:00 06/20/20 06:00 Labs: Abnormal lab results 06/19/20 06/19/20 06/20/20 Range/Units 11:07 15:41 06:00 RBC 2.48 L (3.65-5.03) M/mm3 Hgb 8.1 L (11.8-15.2) gm/dl Hct 23.9 L (35.5-45.6) % MCV 97 H (84-94) fl MCH 33 H (28-32) pg Potassium (3.6-5.0) mmol/L BUN (9-20) mg/dL Creatinine (0.8-1.3) mg/dL POC Glucose 68 L 124 H (70-105) mg/dL Calcium (8.4-10.2) mg/dL Phosphorus (2.5-4.5) mg/dL 06/20/20 Range/Units 06:00 RBC (3.65-5.03) M/mm3 Hgb (11.8-15.2) gm/dl Hct (35.5-45.6) % MCV (84-94) fl MCH (28-32) pg Potassium 3.0 L D (3.6-5.0) mmol/L BUN 33 H (9-20) mg/dL Creatinine 1.7 H (0.8-1.3) mg/dL POC Glucose (70-105) mg/dL Calcium 7.4 L (8.4-10.2) mg/dL Phosphorus 2.40 L (2.5-4.5) mg/dL
[2020-06-20] MEDS: metroNIDAZOLE/NS 500 MG/100 ML 500 MG/100 ML BAG IV SCH (18:01)
[2020-06-20] MEDS: PRAVASTATIN 20 MG TAB PO SCH (22:25)
[2020-06-21] MEDS: metroNIDAZOLE/NS 500 MG/100 ML 500 MG/100 ML BAG IV SCH ×2 (02:55→14:07)
[2020-06-21 07:36] LABS: Calcium 6.9 mg/dL (8.4-10.2)
--- NOTE | 2020-06-21 07:52 | Progress Note ---
Assessment and Plan 1. Acute kidney injury: Vasomotor ISAAC in the setting of shock. Renal US negative for hydro. Monitor renal function. Creatinine level is improving. Avoid nephrotoxic agents. Meds dosage based on GFR. 2. FEN: Hypernatremia, improved. Hypokalemia, replete K, monitor. Metabolic acidosis, improved, Sod bicarb drip stopped, monitor. Replete Phos. Monitor lytes and volume status. 3. Sepsis with shock: Currently off pressors. Monitor BP. 4. UTI: S/p Abx. 5. Acute hypoxemic respiratory failure: CXR clear. COVID test negative. NC O2 as needed. 6. Colitis: C.diff negative. 7. Metabolic encephalopathy: Monitor. 8. H/o Dementia: Supportive care. 9. H/o HTN: Monitor BP. 10. Anemia, POA: Monitor. Subjective: Patient was seen and examined at the bedside. No new complaint. Objective: General appearance: well-developed, appears stated age, not in distress HEENT: ATNC Neck: trachea midline Respiratory: ctab Heart: regular, S1S2, no murmur Gastrointestinal: soft, normoactive bowel sounds, not tender Integumentary: no rash, warm and dry Ext: no edema Neurologic: alert, able to move extremities, confusion noted Ext: trace LE edema : Hair catheter Subjective Date of service: 06/21/20 Principal diagnosis: shock Objective - Vital Signs Vital signs: Vital Signs - 12hr 06/20/20 06/21/20 06/21/20 22:25 00:48 04:33 Temperature 98.2 F 98.0 F Pulse Rate 75 62 86 Respiratory 18 18 Rate Blood Pressure 114/41 114/41 Blood Pressure 121/68 [Right] O2 Sat by Pulse 95 Oximetry 06/21/20 04:43 Temperature 98.0 F Pulse Rate 86 Respiratory 18 Rate Blood Pressure 113/35 Blood Pressure [Right] O2 Sat by Pulse 95 Oximetry - Lab 06/20/20 06:00 06/21/20 06:54 Most recent lab results ABG pH 7.329 pH Units (7.350-7.450) L 06/06/20 11:18 ABG pCO2 27.8 mm Hg 06/06/20 11:18 ABG pO2 258.1 mm Hg (80.0-90.0) H 06/06/20 11:18 ABG HCO3 14.3 mmol/L (20.0-26.0) L 06/06/20 11:18 ABG O2 Saturation 99.4 % (95.0-99.0) H 06/06/20 11:18 Calcium 6.9 mg/dL (8.4-10.2) L 06/21/20 06:54 Phosphorus 2.00 mg/dL (2.5-4.5) L 06/21/20 06:54 Magnesium 1.70 mg/dL (1.7-2.3) 06/16/20 04:40 Urine Creatinine 57.0 mg/dL (0.1-20.0) H 06/06/20 21:05 Urine Sodium 85 mmol/L 06/06/20 21:05 Medications & Allergies - Medications Allergies/Adverse Reactions: Allergies No Known Allergies Allergy (Verified 06/06/20 15:21) Home Medications: Home Medications Medication Instructions Recorded Confirmed Last Taken Type Amlodipine Besylate [Norvasc] 5 mg PO QDAY 06/06/20 06/06/20 Unknown History Calcium Carb/Magnesium Hydrox 500 mg PO QDAY 06/06/20 06/06/20 Unknown History [Antacid 1000-200 mg Tab Chew] Cholecalciferol (Vitamin D3) 2,000 unit PO QDAY 06/06/20 06/06/20 Unknown History [Vitamin D3 2,000 UNIT CAP] Dicyclomine [Bentyl] 10 mg PO TID 06/06/20 06/06/20 Unknown History Insulin Lispro [Insulin Lispro 10 unit SQ TID 06/06/20 06/06/20 Unknown History Kwikpen U-100] Magnesium Citrate [Citroma] 296 ml PO QDAY 06/06/20 06/06/20 Unknown History Melatonin [Melatonin 3MG TAB] 6 mg PO QHS 06/06/20 06/06/20 Unknown History Pantoprazole [Protonix TAB] 40 mg PO QDAY 06/06/20 06/06/20 Unknown History Pioglitazone HCl [Actos] 30 mg PO QDAY 06/06/20 06/06/20 Unknown History Pravastatin Sodium [Pravastatin] 10 mg PO QHS 06/06/20 06/06/20 Unknown History allopurinoL [Zyloprim] 100 mg PO QDAY 06/06/20 06/06/20 Unknown History Cholestyramine (with Sugar) 4 gm PO BID #60 packet 06/17/20 Unknown Rx [Questran] Famotidine [Pepcid] 20 mg PO QDAY #30 tablet 06/17/20 Unknown Rx Metoprolol [Lopressor TAB] 25 mg PO BID #60 tablet 06/17/20 Unknown Rx Sodium Bicarbonate 650 mg PO TID #30 tablet 06/17/20 Unknown Rx Tamsulosin [Flomax] 0.4 mg PO QDAY #30 capsule 06/17/20 Unknown Rx Active Medications: Generic Name Dose Route Start Last Admin Trade Name Freq PRN Reason Stop Dose Admin Acetaminophen 650 mg 06/06/20 15:00 06/20/20 09:05 Acetaminophen 325 Mg Tab PO 650 mg Q6H PRN Administration Pain, Mild (1-3) Albuterol 2.5 mg 06/06/20 15:00 Albuterol 2.5 Mg/3 Ml Nebu IH Q3HRT PRN Shortness Of Breath Allopurinol 100 mg 06/07/20 10:00 06/20/20 09:06 Allopurinol 100 Mg Tab PO 100 mg QDAY YELENA Administration Calcium Carbonate/Glycine 500 mg 06/07/20 10:00 06/20/20 09:06 Calcium Carbonate 500 Mg Tab Chew PO 500 mg QDAY YELENA Administration Cholecalciferol 2,000 unit 06/07/20 10:00 06/20/20 09:06 Cholecalciferol (Vit D3) 1000 Unit (25 Mcg) Tab PO 2,000 unit QDAY YELENA Administration Cholestyramine Resin 4 gm 06/12/20 22:00 06/20/20 22:26 Cholestyramine (With Sugar) 4 Gm Packet PO 4 gm BID YELENA Administration Dicyclomine HCl 10 mg 06/06/20 20:00 06/20/20 20:50 Dicyclomine 10 Mg Cap PO 10 mg TID YELENA Administration Famotidine 20 mg 06/13/20 10:00 06/20/20 09:06 Famotidine 20 Mg Tab PO 20 mg QDAY YELENA Administration Sodium Bicarbonate 150 meq/ 1,150 mls @ 75 mls/hr 06/18/20 09:00 06/20/20 09:02 Sterile Water IV 75 mls/hr DIRECT YELENA Administration Levofloxacin/Dextrose 750 mg in 150 mls @ 100 mls/hr 06/20/20 16:00 06/20/20 16:33 Levaquin 750mg/150ml IV 100 mls/hr Q48H YELENA Administration Protocol Metronidazole 500 mg in 100 mls @ 100 mls/hr 06/20/20 18:00 06/21/20 02:55 Flagyl 500 Mg/100 Ml IV 100 mls/hr Q8H YELENA Administration Protocol Magnesium Citrate 300 ml 06/06/20 16:20 Magnesium Citrate 300 Ml Oral Liqd PO QDAY PRN Constipation Metoprolol Tartrate 25 mg 06/09/20 22:00 06/20/20 22:25 Metoprolol Tartrate 25 Mg Tab PO 25 mg BID YELENA Administration Pravastatin Sodium 10 mg 06/06/20 22:00 06/20/20 22:25 Pravastatin 20 Mg Tab PO 10 mg QHS YELENA Administration Sodium Bicarbonate 650 mg 06/16/20 20:00 06/20/20 20:50 Sodium Bicarbonate 650 Mg Tab PO 650 mg TID YELENA Administration Sodium Chloride 10 ml 06/06/20 15:00 06/20/20 22:26 Sodium Chloride 0.9% 10 Ml Flush Syringe IV 10 ml BID YELENA Administration Sodium Chloride 10 ml 06/06/20 15:00 Sodium Chloride 0.9% 10 Ml Flush Syringe IV PRN PRN LINE FLUSH Tamsulosin HCl 0.4 mg 06/14/20 11:00 06/20/20 09:06 Tamsulosin 0.4 Mg Cap PO 0.4 mg QDAY YELENA Administration
[2020-06-21] MEDS ORDERED: POTASSIUM PHOSPHATE 45 MMOL in SODIUM CHLORIDE 0.9% 500 ML 500 ML IV ONE (08:30)
[2020-06-21] MEDS: CALCIUM CARBONATE 500 MG TAB CHEW PO SCH (12:15)
[2020-06-21] MEDS: allopurinoL 100 MG TAB PO SCH (12:15)
[2020-06-21] MEDS: METOPROLOL TARTRATE 25 MG TAB PO SCH ×2 (12:15→22:23)
[2020-06-21] MEDS: CHOLESTYRAMINE (WITH SUGAR) 4 GM PACKET PO SCH ×2 (12:15→22:24)
[2020-06-21] MEDS: CHOLECALCIFEROL (VIT D3) 1000 UNIT (25 mcg) TAB PO SCH (12:15)
[2020-06-21] MEDS: TAMSULOSIN 0.4 MG CAP PO SCH (12:15)
[2020-06-21] MEDS: SODIUM BICARBONATE 650 MG TAB PO SCH ×3 (12:16→22:23)
[2020-06-21] MEDS: DICYCLOMINE 10 MG CAP PO SCH ×3 (12:16→22:24)
[2020-06-21] MEDS: ACETAMINOPHEN 325 MG TAB PO PRN (12:16)
--- NOTE | 2020-06-21 13:20 | Progress Note ---
Assessment and Plan Assessment and plan: Septic Shock-resolved. Completed antibiotics Metabolic encephalopathy. Resolved Coag negative Staphylococcus 1/4 bottles. Likely contaminant Urinary tract infection. Urine culture showed no growth. Extensive colitis: C. difficile negative. On Levaquin and Flagyl given abnormal CT abdomen Acute hypoxic respiratory failure-improved. Continue oxygen supplementation. COVID-19 negative Acute kidney injury secondary to vasomotor nephropathy. Nephrology on board Atrial fibrillation with RVR-rate is well controlled. On amiodarone. Cardiology recommendations appreciated Recurrent fevers. Repeat blood cultures negative so far History Interval history: 80-year-old male who is a resident of assisted living facility with vascular dementia, cerebral sclerosis, debility, diabetes mellitus who presents to the emergency department on 06/06 with complaints of lethargy and diminished cognition as per daughter he developed an episode of unresponsiveness while at breakfast at at his assisted living facility. Patient was found to have a urinary tract infection complicated by sepsis and septic shock, acute kidney injury, toxic metabolic encephalopathy as well as metabolic acidosis. Patient was hypotensive with systolic blood pressures in the 50s and was initiated on vasopressor support in the emergency department. Patient was admitted to the hospital service with consults to nephrology and [facility]. Hospital course 06/07: Patient remains on dopamine, vasopressin and Levophed. Nephrology has started the patient on sodium bicarbonate drip for metabolic acidosis. Infectious disease initiated vancomycin in addition to the cefepime and ordered a C. difficile. 06/08: Patient has gram-positive cocci bacteremia in 1/4 bottles which grew to be coag negative staph coccus and he has repeat blood cultures in progress. Urine culture has no growth to date and he is on IV vancomycin and cefepime. Yesterday we ordered a C. difficile PCR which is pending. Patient had a moment of tachycardia into the 130s and a stat EKG was obtained. Patient was given amiodarone bolus by [facility] and cardiology was consulted. Patient is hyperchloremic today however his metabolic acidosis and BUN/creatinine is slightly improved to 93/3.2 from 100/3.6 and his repeat lactic acid is 1.5. At the time my examination patient was on Levophed at 6, vasopressin 0.03 and dopamine at 6. This morning patient failed his swallow eval and ST evaluation was ordered. Of note patient's echocardiogram shows reduced 15 to 20% with borderline left ventricular hypertrophy. 06/09: This morning his speech evaluation was completed and he has been cleared fo r mechanical soft diet with thin liquids. Patient complained of right-sided chest pain with radiation to shoulders and a stat EKG cardiac enzymes were ordered. Patient was recultured yesterday and those have no growth to date and his vancomycin was stopped. Infectious disease team recommends removal of Torres catheter when feasible and a CT abdomen/pelvis when stable. Patient has been cleared to transfer to the floor by cardiology and [facility]. 06/10/2020; patient is on IV cefepime for sepsis due to UTI day 3 out of 5. Vancomycin discontinued. Patient is complaining pleuritic chest pain. Patient was evaluated by cardiology for elevated troponin and episode of A. fib on admission. Cardiology discontinued amiodarone and put her on Lopressor. Cardiology recommend against anticoagulation because of patient's anemia. Hemoglobin this morning was 7.4 and anemia work-up is in progress. I did ordered CT abdomen and pelvis. PT OT evaluation. Patient has ISAAC and nephrology is following. Patient has rectal tube and liquid stool in the bag. I ordered stool for C. difficile. We will continue to monitor. 06/11/2020; patient is on cefepime day 4/5. CT abdomen and pelvis was done and significant for colitis, ischemic colitis is possibility given hypotension and elevated lactic acid level. I will consult GI. Patient has episode of A. fib for less than 24 hours, cardiology was consulted and recommend to be on Lopressor. No need for coagulation because of his anemia. Hemoglobin this morning is improved to 8. Anemia work-up was done, no iron deficiency anemia identified. ISAAC is improving. C. difficile was negative. 06/12/2020; continue cefepime per ID recommendation. CT abdomen and pelvis is significant for ischemic colitis likely due to septic shock, hypotension. Patient was seen by GI and recommend no further intervention at this time. Patient had episode of A. fib on admission for less than 24 hours and cardiology recommend to continue on Lopressor, no anticoagulation needed. Hemoglobin is improving. Patient came from assisted living facility. Patient need Covid test before discharge. ISAAC is improving. Creatinine this morning was 1.7. Nephrology is following. OT evaluated and recommend subacute rehab, PT evaluation is pending. 06/13: Replace K and Mag, continue to monitor renal fuction, Continue abx per ID, c.diff negative. patient still with Rectal tube and Torres but will re- evaluate for possible discontinuation. Questran started by GI. Will continue to monitor and replace electrolytes Discussed with nursing staff to change torres to condom catheter CM to try and ascertain patients functional status prior to hospitalization 06/14: Patient showing some clinical improvement Torres replaced due to urinary retention about 1000 cc of clear urine removed. Flomax started. PT OT consulted as patient is noted to have been ambulatory prior to this admission will likely need SNF placement. Diarrhea consistency is improving anticipate discharge in 24 to 48 hours once approval is obtained. Cardiology input is noted Lopressor 25 mg p.o. twice daily possible addition of SABIHA inhibitor or ARB when okay with nephrology as regular this is a is improving. At this time no AC for A. fib management due to anemia and the transient nature of the A. fib which was less than 24 hours. 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 Unknown etiology or chronicity of these diagnoses. No current clinical evidence of acutely decompensated HF. Per [place] records, pt saw [place] [facility] in 1998 and underwent LHC which did not show any significant findings. Continue with conservative cardiac management given pt's advanced age, dementia and multiple co-morbidities. Recommend pt follow up in our office with Dr. Rosa within 2 weeks of discharge ([phone]). 06/15: Continue supportive care. Will give a unit of PRBC and anticipate discharge today or tomorrow once approval from insurance company obtained. PATIENT will need urology follow up outpatient and also cardiology outpatient. Discussed with patient and Case management Continue PT OT 06/16: Still awaiting prior approval from the insurance company for patient to be discharged. Continue supportive care thrombocytopenia noted again antiplatelets are on hold. We will continue to monitor anticipate discharge once prior authorization is received from insurance [employer]. Continue rehab therapy while in house 06/17: Severe hyperkalemia noted in the setting of renal dysfunction. Will hold discharge. Also patient with intermittent fevers culture still on resolved. Bolus of fluid given will also give some Kayexalate to correct hyperkalemia. 06/18: Still with low-grade fever. White count still normal. Potassium mild hypokalemia. Will monitor closely renal function showing some improvement. If continues to improve we will anticipate discharge tomorrow. Still with elevated troponin but improved compared to prior. No respiratory compromise noted at this time diarrhea still present. Will discuss with ID if patient should empirically be treated with p.o. vancomycin despite negative C. difficile for with Flagyl. 06/19: Considering noted deformity on bilateral shoulders will obtain an x-ray just to ensure that there is no other acute event. I reviewed the chart and not has been done. Continue bicarb drip may need to decrease rate but will defer to take up operator. Awaiting labs from today. Anticipate discharge in a.m. we will also rule out bilateral upper extremity DVT due to the swelling. 06/20: Patient is a 80-year-old male who presented to the hospital for dialysis related facility with complaints of lethargy diminished cognition diagnosed with septic shock with diarrhea but with C. difficile negative during hospital stay was noted to be cardiac arrhythmia with tachycardia resolved with amiodarone. Was also noted to have ISAAC likely secondary to ATN showed some improvement and stabilized. Diarrhea persisted was managed with fecal management system with ID input noted. Fortunately the past few days has been having recurrent fever today noted to have a distended abdomen although nontender CT abdomen and pelvis with oral contrast was added following clearance from take up operator. 06/21. Patient seen and examined at bedside this morning. Ultrasound of the upp er extremities showed no DVT. He has been advised to elevate right upper extremity to improve swelling. Potassium is very low today he will get potassium replacement. Plan for possible discharge tomorrow. Remained afebrile overnight Hospitalist Physical - Constitutional Vitals: Temp Pulse Resp BP Pulse Ox 98.0 F 87 18 118/54 93 06/21/20 10:53 06/21/20 10:53 06/21/20 10:53 06/21/20 10:53 06/21/20 10:53 General appearance: Present: no acute distress, well-nourished HEART Score - HEART Score Troponin: Troponin T 0.141 ng/mL (0.00-0.029) H* 06/18/20 10:39 Results - Labs CBC & Chem 7: 06/20/20 06:00 06/21/20 06:54 Labs: Laboratory Last Values WBC 4.9 K/mm3 (4.5-11.0) 06/20/20 06:00 RBC 2.48 M/mm3 (3.65-5.03) L 06/20/20 06:00 Hgb 8.1 gm/dl (11.8-15.2) L 06/20/20 06:00 Hct 23.9 % (35.5-45.6) L 06/20/20 06:00 MCV 97 fl (84-94) H 06/20/20 06:00 MCH 33 pg (28-32) H 06/20/20 06:00 MCHC 34 % (32-34) 06/20/20 06:00 RDW 14.0 % (13.2-15.2) 06/20/20 06:00 Plt Count 279 K/mm3 (140-440) 06/20/20 06:00 Lymph % (Auto) 6.8 % (13.4-35.0) L 06/13/20 06:13 [place] % (Auto) 5.0 % (0.0-7.3) 06/13/20 06:13 Eos % (Auto) 1.7 % (0.0-4.3) 06/13/20 06:13 Baso % (Auto) 0.2 % (0.0-1.8) 06/13/20 06:13 Lymph # (Auto) 0.9 K/mm3 (1.2-5.4) L 06/13/20 06:13 [place] # (Auto) 0.7 K/mm3 (0.0-0.8) 06/13/20 06:13 Eos # (Auto) 0.2 K/mm3 (0.0-0.4) 06/13/20 06:13 Baso # (Auto) 0.0 K/mm3 (0.0-0.1) 06/13/20 06:13 Add Manual Diff Complete 06/16/20 12:50 Total Counted 100 06/16/20 12:50 Seg Neutrophils % 86.3 % (40.0-70.0) H 06/13/20 06:13 Seg Neuts % (Manual) 65.0 % (40.0-70.0) 06/16/20 12:50 Band Neutrophils % 20.0 % 06/16/20 12:50 Lymphocytes % (Manual) 6.0 % (13.4-35.0) L 06/16/20 12:50 Reactive Lymphs % (Man) 1.0 % 06/12/20 05:24 Monocytes % (Manual) 9.0 % (0.0-7.3) H 06/16/20 12:50 Eosinophils % (Manual) 2.0 % (0.0-4.3) 06/12/20 05:24 Nucleated RBC % Not Reportable 06/16/20 12:50 Seg Neutrophils # 11.9 K/mm3 (1.8-7.7) H 06/13/20 06:13 Seg Neutrophils # Man 7.2 K/mm3 (1.8-7.7) 06/16/20 12:50 Band Neutrophils # 2.2 K/mm3 06/16/20 12:50 Lymphocytes # (Manual) 0.7 K/mm3 (1.2-5.4) L 06/16/20 12:50 Abs React Lymphs (Man) 0.0 K/mm3 06/16/20 12:50 Monocytes # (Manual) 1.0 K/mm3 (0.0-0.8) H 06/16/20 12:50 Eosinophils # (Manual) 0.0 K/mm3 (0.0-0.4) 06/16/20 12:50 Basophils # (Manual) 0.0 K/mm3 (0.0-0.1) 06/16/20 12:50 Metamyelocytes # 0.0 K/mm3 06/16/20 12:50 Myelocytes # 0.0 K/mm3 06/16/20 12:50 Promyelocytes # 0.0 K/mm3 06/16/20 12:50 Blast Cells # 0.0 K/mm3 06/16/20 12:50 WBC Morphology Not Reportable 06/16/20 12:50 Hypersegmented Neuts Not Reportable 06/16/20 12:50 Hyposegmented Neuts Not Reportable 06/16/20 12:50 Hypogranular Neuts Not Reportable 06/16/20 12:50 Smudge Cells Not Reportable 06/16/20 12:50 Toxic Granulation Not Reportable 06/16/20 12:50 Toxic Vacuolation Not Reportable 06/16/20 12:50 Dohle Bodies Not Reportable 06/16/20 12:50 Pelger-Huet Anomaly Not Reportable 06/16/20 12:50 Denys Rods Not Reportable 06/16/20 12:50 Platelet Estimate Consistent w auto 06/16/20 12:50 Clumped Platelets Rare 06/16/20 12:50 Plt Clumps, EDTA Not Reportable 06/16/20 12:50 Large Platelets Rare 06/16/20 12:50 Giant Platelets Not Reportable 06/16/20 12:50 Platelet Satelliting Not Reportable 06/16/20 12:50 Plt Morphology Comment Not Reportable 06/16/20 12:50 RBC Morphology Normal 06/16/20 12:50 Dimorphic RBCs Not Reportable 06/16/20 12:50 Polychromasia Not Reportable 06/16/20 12:50 Hypochromasia Not Reportable 06/16/20 12:50 Poikilocytosis Not Reportable 06/16/20 12:50 Anisocytosis Not Reportable 06/16/20 12:50 Microcytosis Not Reportable 06/16/20 12:50 Macrocytosis Not Reportable 06/16/20 12:50 Spherocytes Not Reportable 06/16/20 12:50 Pappenheimer Bodies Not Reportable 06/16/20 12:50 Sickle Cells Not Reportable 06/16/20 12:50 Target Cells Not Reportable 06/16/20 12:50 Tear Drop Cells Not Reportable 06/16/20 12:50 Ovalocytes Not Reportable 06/16/20 12:50 Helmet Cells Not Reportable 06/16/20 12:50 [place] Bodies Not Reportable 06/16/20 12:50 [place] Rings Not Reportable 06/16/20 12:50 [place] Cells Not Reportable 06/16/20 12:50 Bite Cells Not Reportable 06/16/20 12:50 Crenated Cell Not Reportable 06/16/20 12:50 Elliptocytes Not Reportable 06/16/20 12:50 Acanthocytes (Spur) Not Reportable 06/16/20 12:50 Rouleaux Not Reportable 06/16/20 12:50 Hemoglobin C Crystals Not Reportable 06/16/20 12:50 Schistocytes Not Reportable 06/16/20 12:50 Malaria parasites Not Reportable 06/16/20 12:50 Chance Bodies Not Reportable 06/16/20 12:50 Hem Pathologist Commnt No 06/16/20 12:50 PT 16.3 Sec. (12.2-14.9) H 06/06/20 10:19 INR 1.33 (0.87-1.13) H 06/06/20 10:19 APTT 31.6 Sec. (24.2-36.6) 06/06/20 10:19 ABG pH 7.329 pH Units (7.350-7.450) L 06/06/20 11:18 ABG pCO2 27.8 mm Hg 06/06/20 11:18 ABG pO2 258.1 mm Hg (80.0-90.0) H 06/06/20 11:18 ABG HCO3 14.3 mmol/L (20.0-26.0) L 06/06/20 11:18 ABG O2 Saturation 99.4 % (95.0-99.0) H 06/06/20 11:18 ABG O2 Content 13.2 (0.0-44) 06/06/20 11:18 ABG Base Excess -10.5 mmol/L (-2.0-3.0) L 06/06/20 11:18 ABG Hemoglobin 9.1 gm/dl (14.0-18.0) L 06/06/20 11:18 ABG Carboxyhemoglobin 1.3 % (0.0-5.0) 06/06/20 11:18 ABG Methemoglobin Not Reportable 06/06/20 11:18 VBG pH 7.438 (7.320-7.420) H 06/06/20 10:19 Oxyhemoglobin 98.2 % (95.0-99.0) 06/06/20 11:18 FiO2 21 % 06/06/20 11:18 Sodium 138 mmol/L (137-145) 06/21/20 06:54 Potassium 2.4 mmol/L (3.6-5.0) L* 06/21/20 06:54 Chloride 103.8 mmol/L (98-107) 06/21/20 06:54 Carbon Dioxide 28 mmol/L (22-30) 06/21/20 06:54 Anion Gap 9 mmol/L 06/21/20 06:54 BUN 35 mg/dL (9-20) H 06/21/20 06:54 Creatinine 1.4 mg/dL (0.8-1.3) H 06/21/20 06:54 Estimated GFR 59 ml/min 06/21/20 06:54 BUN/Creatinine Ratio 25 % 06/21/20 06:54 Glucose 68 mg/dL (75-100) L 06/21/20 06:54 POC Glucose 66 mg/dL (70-105) L 06/21/20 10:54 Lactic Acid 1.50 mmol/L (0.7-2.0) 06/08/20 05:15 Calcium 6.9 mg/dL (8.4-10.2) L 06/21/20 06:54 Phosphorus 2.00 mg/dL (2.5-4.5) L 06/21/20 06:54 Magnesium 1.70 mg/dL (1.7-2.3) 06/16/20 04:40 Iron 54 ug/dL (49-181) 06/10/20 10:44 TIBC 157 mcg/dL (250-450) L 06/10/20 10:44 Ferritin 569.5 ng/mL (30.0-300.0) H 06/10/20 10:44 Total Bilirubin 0.20 mg/dL (0.1-1.2) 06/14/20 05:23 AST 19 units/L (5-40) 06/14/20 05:23 ALT 20 units/L (7-56) 06/14/20 05:23 Alkaline Phosphatase 55 units/L (35-129) 06/14/20 05:23 Ammonia 64.0 umol/L (25-60) H 06/06/20 10:19 Total Creatine Kinase 1212 units/L (55-170) H 06/09/20 12:57 CK-MB (CK-2) 12.1 ng/mL (0.0-4.0) H 06/09/20 12:57 CK-MB (CK-2) Rel Index 0.9 (0-4) 06/09/20 12:57 Troponin T 0.141 ng/mL (0.00-0.029) H* 06/18/20 10:39 Total Protein 4.9 g/dL (6.3-8.2) L 06/14/20 05:23 Albumin 2.4 g/dL (3.9-5) L 06/14/20 05:23 Albumin/Globulin Ratio 1.0 % 06/14/20 05:23 Triglycerides 103 mg/dL (2-149) 06/06/20 10:19 Cholesterol 84 mg/dL (50-199) 06/06/20 10:19 LDL Cholesterol Direct 28 mg/dL (50-130) L 06/06/20 10:19 HDL Cholesterol 44 mg/dL (40-59) 06/06/20 10:19 Cholesterol/HDL Ratio 1.90 % 06/06/20 10:19 Vitamin B12 1170 pg/mL (211-911) H 06/10/20 14:49 TSH 4.440 mlU/mL (0.270-4.200) H 06/06/20 10:19 Free T4 1.55 ng/dL (0.76-1.46) H 06/06/20 10:19 PTH Intact 271.9 pg/mL (15-65) H 06/08/20 05:15 Urine Color Yellow (Yellow) 06/06/20 14:02 Urine Turbidity Cloudy (Clear) 06/06/20 14:02 Urine pH 6.0 (5.0-7.0) 06/06/20 14:02 Ur Specific [place] 1.013 (1.003-1.030) 06/06/20 14:02 Urine Protein 100 mg/dl mg/dL (Negative) 06/06/20 14:02 Urine Glucose (UA) Neg mg/dL (Negative) 06/06/20 14:02 Urine Ketones Neg mg/dL (Negative) 06/06/20 14:02 Urine Blood Sm (Negative) 06/06/20 14:02 Urine Nitrite Neg (Negative) 06/06/20 14:02 Urine Bilirubin Neg (Negative) 06/06/20 14:02 Urine Urobilinogen < 2.0 mg/dL (<2.0) 06/06/20 14:02 Ur Leukocyte Esterase Lg (Negative) 06/06/20 14:02 Urine WBC (Auto) > 182.0 /HPF (0.0-6.0) H 06/06/20 14:02 Urine RBC (Auto) 55.0 /HPF (0.0-6.0) 06/06/20 14:02 U Epithel Cells (Auto) 1.0 /HPF (0-13.0) 06/06/20 14:02 Urine WBC Clumps 2+ /HPF 06/06/20 14:02 Urine Creatinine 57.0 mg/dL (0.1-20.0) H 06/06/20 21:05 Urine Sodium 85 mmol/L 06/06/20 21:05 Random Vancomycin 9.8 ug/mL (0-40.0) 06/09/20 04:30 Urine Opiates Screen Presumptive negative 06/06/20 14:02 Urine Methadone Screen Presumptive negative 06/06/20 14:02 Ur Barbiturates Screen Presumptive negative 06/06/20 14:02 Ur Phencyclidine Scrn Presumptive negative 06/06/20 14:02 Ur Amphetamines Screen Presumptive negative 06/06/20 14:02 U Benzodiazepines Scrn Presumptive negative 06/06/20 14:02 Urine Cocaine Screen Presumptive negative 06/06/20 14:02 U Marijuana (THC) Screen Presumptive negative 06/06/20 14:02 Drugs of Abuse Note Disclamer 06/06/20 14:02 Plasma/Serum Alcohol < 0.01 % (0-0.07) 06/06/20 10:19 C. difficile Tox (PCR) Negative (Negative) 06/08/20 Unknown Coronavirus (PCR) Negative (Negative) 06/14/20 10:35 Blood Type O POSITIVE 06/15/20 11:00 Antibody Screen Negative 06/15/20 11:00 Crossmatch See Detail 06/15/20 11:00 Microbiology: Microbiology 06/16/20 17:49 Peripheral/Venous Blood Culture - Preliminary NO GROWTH AFTER 4 DAYS 06/16/20 17:49 Peripheral/Venous Blood Culture - Preliminary NO GROWTH AFTER 4 DAYS 06/20/20 15:43 Peripheral/Venous Blood Culture - Preliminary Culture in Progress 06/20/20 15:43 Peripheral/Venous Blood Culture - Preliminary Culture in Progress Torres/IV: Voiding Method Indwelling Catheter Active Medications - Current Medications Current Medications: Generic Name Dose Route Start Last Admin Trade Name Freq PRN Reason Stop Dose Admin Acetaminophen 650 mg 06/06/20 15:00 06/21/20 12:16 Acetaminophen 325 Mg Tab PO 650 mg Q6H PRN Administration Pain, Mild (1-3) Albuterol 2.5 mg 06/06/20 15:00 Albuterol 2.5 Mg/3 Ml Nebu IH Q3HRT PRN Shortness Of Breath Allopurinol 100 mg 06/07/20 10:00 06/21/20 12:15 Allopurinol 100 Mg Tab PO 100 mg QDAY YELENA Administration Calcium Carbonate/Glycine 500 mg 06/07/20 10:00 06/21/20 12:15 Calcium Carbonate 500 Mg Tab Chew PO 500 mg QDAY YELENA Administration Cholecalciferol 2,000 unit 06/07/20 10:00 06/21/20 12:15 Cholecalciferol (Vit D3) 1000 Unit (25 Mcg) Tab PO 2,000 unit QDAY YELENA Administration Cholestyramine Resin 4 gm 06/12/20 22:00 06/21/20 12:15 Cholestyramine (With Sugar) 4 Gm Packet PO 4 gm BID YELENA Administration Dicyclomine HCl 10 mg 06/06/20 20:00 06/21/20 12:16 Dicyclomine 10 Mg Cap PO Not Given TID YELENA Famotidine 20 mg 06/13/20 10:00 06/20/20 09:06 Famotidine 20 Mg Tab PO 20 mg QDAY YELENA Administration Levofloxacin/Dextrose 750 mg in 150 mls @ 100 mls/hr 06/20/20 16:00 06/20/20 16:33 Levaquin 750mg/150ml IV 100 mls/hr Q48H [facility] Administration Protocol Metronidazole 500 mg in 100 mls @ 100 mls/hr 06/20/20 18:00 06/21/20 02:55 Flagyl 500 Mg/100 Ml IV 100 mls/hr Q8H [facility] Administration Protocol Potassium Phosphate 45 mmol/ 515 mls @ 85 mls/hr 06/21/20 08:30 06/21/20 12:15 Sodium Chloride IV 06/21/20 14:33 85 mls/hr ONCE ONE Administration Magnesium Citrate 300 ml 06/06/20 16:20 Magnesium Citrate 300 Ml Oral Liqd PO QDAY PRN Constipation Metoprolol Tartrate 25 mg 06/09/20 22:00 06/21/20 12:15 Metoprolol Tartrate 25 Mg Tab PO 25 mg BID YELENA Administration Pravastatin Sodium 10 mg 06/06/20 22:00 06/20/20 22:25 Pravastatin 20 Mg Tab PO 10 mg QHS YELENA Administration Sodium Bicarbonate 650 mg 06/16/20 20:00 06/21/20 12:16 Sodium Bicarbonate 650 Mg Tab PO Not Given TID YELENA Sodium Chloride 10 ml 06/06/20 15:00 06/20/20 22:26 Sodium Chloride 0.9% 10 Ml Flush Syringe IV 10 ml BID YELENA Administration Sodium Chloride 10 ml 06/06/20 15:00 Sodium Chloride 0.9% 10 Ml Flush Syringe IV PRN PRN LINE FLUSH Tamsulosin HCl 0.4 mg 06/14/20 11:00 06/21/20 12:15 Tamsulosin 0.4 Mg Cap PO 0.4 mg QDAY YELENA Administration Nutrition/Malnutrition Assess - Dietary Evaluation Nutrition/Malnutrition Findings: Nutrition Notes Start: 06/08/20 11:43 Freq: Status: Active Protocol: Document 06/16/20 14:34 CW (Rec: 06/16/20 14:47 CW [id number]) Nutrition Notes Initial or Follow up Reassessment Current Diagnosis Acute Kidney Injury,Diabetes, Hypertension Other Pertinent Diagnosis AMS, Dementia, UTI, metabolic encephalopathy, ?s/p CVA? Current Diet Mechanical soft diet + ONS BID Labs/Tests BUN 21 Cr 1.4 Pertinent Medications K4PO3 in NS at 85 ml/hr Height 5 ft 8 in Weight 101.2 kg [place] Body Weight (kg) 70.00 BMI 33.9 Weight change and time frame weight change likely d/t error Weight Status Appropriate Subjective/Other Information F/U for intakes and ONS. Pt eating more of meals. Approximately 50% per tech and drinks 75% of ONS. Pt receives feeding assist. Will continue ONS at TID until intake stablizes Percent of energy/protein needs met: 104%/123% Burn Absent Trauma Absent GI Symptoms Diarrhea Difficulty In Swallowing Skin Integrity/Comment Stage 1 pressure ulcer Current % PO Fair (50-74%) Minimum of two criteria No Fluid Accumulation Mild (non-severe) #2 Nutrition Diagnosis Increased nutrient needs ( specify in comment below) Diagnosis Progress(for reassessment Continues documentation) #1 Nutrition Diagnosis Inadequate oral intake As Evidenced by Signs and Symptoms Pt eating 50% of meals Diagnosis Progress(for reassessment Improved documentation) Is patient on ventilator? No Is Patient Ambulatory and/or Out of Bed Yes REE-([facility]-ambulatory/OOB) [ 6241.950 [id number]] Kcal/Kg value to use for calculation 18 Approximate Energy Requirements Using 1822 kcal/Kg Calculation Used for Recommendations [facility] Additional Notes protein needs: 62 - 153g (0.8 - 1.2g/kgBW for ISAAC) fluid needs: 1 ml/kcal Nutrition Intervention Change Diet Order: Continue Mechanical Soft Diet and ONS Add Supplement/Snack (indicate name/kcal Nepro TID /protein ) Provides kCal: 1,275 Provides Protein (gm) 57 Goal #1 Meet at least 75% of kcal and proteins via PO Goal #2 wound healing Anticipated Discharge Needs: Mechanical Soft diet + ONS PRN Follow-Up By: 06/21/20 Additional Comments F/U intakes and ONS tolerance
--- NOTE | 2020-06-21 14:02 | Progress Note ---
Assessment and Plan Cultures: Blood culture 06/06/2020 coagulase-negative staph 1 out of 4 Blood culture 06/08/2020 no growth today C. difficile PCR negative SARS-CoV-2 PCR negative Urine culture 06/07/2020 no growth Blood culture 06/20/2020 no growth so far Assessment: 80 years old male with history of dementia, CVA, debility, diabetes mellitus, secondary to few hours of unresponsiveness at breakfast at his assisted living facility: #Sepsis with septic shock: Resolved, remarkable improvement, off pressors; source UTI +/- colitis. Completed cefepime 5 days #Extensive colitis: remains with large foul smelling diarrhea. seen on CT ? ischemia. C diff neg #Coagulase-negative staph bacteremia: 1 out of 4 likely contaminant. #Acute hypoxemic respiratory failure: now on NC O2. CXR clear. SARS-CoV-2 PCR negative. #UTI: with hematuria, urine culture no growth #Acute encephalopathy: due to sepsis> CT no acute changes. Resolved. #ISAAC: ? from sepsis, a little worse now #RVR A. fib: On amiodarone, cardiology on board #Thrombocytopenia: Monitor platelets, likely due to sepsis, resolved. Recommendations: -Avoid laxative -repeated blood cultures with recurring fevers -Started Levaquin 750mg q48h and Flagyl 500mg q8h given abnormal CT. Complete 7 days. If improved can DC with PO of both. MD [facility]ans[facility] O: [phone] F: [phone] Subjective Date of service: 06/21/20 Principal diagnosis: shock Interval history: Afebrile, no new issues Objective - Exam Narrative Exam: General appearance: Alert in NAD on NC O2 Eyes: anicteric sclerae, moist conjunctivae; no lid-lag; PERRLA HENT: Normocephalic, Atraumatic; normal external ears, nares open, edentulous Neck: supple, tracheal midline, no JVD Lungs: Clear to auscultation bilaterally CV: RRR no murmur Abdomen: Soft, nontender, ventral hernia Extremities: no edema, no cyanosis Skin: No rash. Psych: no agitated Neuro: Alert, follows simple commands - Constitutional Vitals: Vital Signs Temp Pulse Resp BP Pulse Ox 98.0 F 87 18 118/54 93 06/21/20 10:53 06/21/20 10:53 06/21/20 10:53 06/21/20 10:53 06/21/20 10:53 Temperature -Last 24 Hours Temperature 98.0 F Temperature 98.6 F Temperature 98.0 F Temperature 98.0 F Temperature 98.2 F Temperature 98.2 F Temperature 97.7 F - Labs CBC & Chem 7: 06/20/20 06:00 06/21/20 06:54 Labs: Abnormal lab results 06/20/20 06/21/20 06/21/20 Range/Units 17:07 06:54 07:53 Potassium 2.4 L* (3.6-5.0) mmol/L BUN 35 H (9-20) mg/dL Creatinine 1.4 H (0.8-1.3) mg/dL Glucose 68 L (75-100) mg/dL POC Glucose 120 H 64 L (70-105) mg/dL Calcium 6.9 L (8.4-10.2) mg/dL Phosphorus 2.00 L (2.5-4.5) mg/dL 06/21/20 Range/Units 10:54 Potassium (3.6-5.0) mmol/L BUN (9-20) mg/dL Creatinine (0.8-1.3) mg/dL Glucose (75-100) mg/dL POC Glucose 66 L (70-105) mg/dL Calcium (8.4-10.2) mg/dL Phosphorus (2.5-4.5) mg/dL
[2020-06-21] MEDS: FAMOTIDINE 20 MG TAB PO SCH (14:07)
[2020-06-21] MEDS: PRAVASTATIN 20 MG TAB PO SCH (22:24)
[2020-06-21] MEDS ORDERED: POTASSIUM CHLORIDE ER 20 MEQ TAB PO ONE (23:47)
[2020-06-22] MEDS: metroNIDAZOLE/NS 500 MG/100 ML 500 MG/100 ML BAG IV SCH ×4 (02:47→17:08)
[2020-06-22] MEDS: ACETAMINOPHEN 325 MG TAB PO PRN (02:59)
[2020-06-22] MEDS ORDERED: POTASSIUM CHLORIDE ER 20 MEQ TAB PO ONE (03:40)
[2020-06-22 06:04] LABS: Calcium 6.7 mg/dL (8.4-10.2)
[2020-06-22] MEDS: CHOLESTYRAMINE (WITH SUGAR) 4 GM PACKET PO SCH ×2 (10:04→21:19)
[2020-06-22] MEDS: FAMOTIDINE 20 MG TAB PO SCH (10:04)
[2020-06-22] MEDS: METOPROLOL TARTRATE 25 MG TAB PO SCH ×2 (10:04→21:20)
[2020-06-22] MEDS: TAMSULOSIN 0.4 MG CAP PO SCH (10:04)
[2020-06-22] MEDS: CHOLECALCIFEROL (VIT D3) 1000 UNIT (25 mcg) TAB PO SCH (10:04)
[2020-06-22] MEDS: DICYCLOMINE 10 MG CAP PO SCH ×3 (10:04→21:19)
[2020-06-22] MEDS: SODIUM BICARBONATE 650 MG TAB PO SCH ×3 (10:04→21:19)
[2020-06-22] MEDS: allopurinoL 100 MG TAB PO SCH (10:04)
[2020-06-22] MEDS: CALCIUM CARBONATE 500 MG TAB CHEW PO SCH (10:04)
[2020-06-22] MEDS: POTASSIUM CHLORIDE ER 20 MEQ TAB PO SCH ×3 (10:04→21:20)
--- NOTE | 2020-06-22 11:48 | Progress Note ---
Assessment and Plan 1. Acute kidney injury: Vasomotor ISAAC in the setting of shock. Renal US negative for hydro. Monitor renal function. Creatinine level is better. Avoid nephrotoxic agents. Meds dosage based on GFR. 2. FEN: Hypernatremia, improved. Hypokalemia, replete K, monitor. Metabolic acidosis, improved. Replete Mg. Monitor volume status and lytes. 3. Sepsis with shock: Currently off pressors. Monitor BP. 4. UTI: S/p Abx. 5. Acute hypoxemic respiratory failure: CXR clear. COVID test negative. NC O2 as needed. 6. Colitis: C.diff negative. 7. Metabolic encephalopathy: Monitor. 8. H/o Dementia: Supportive care. 9. H/o HTN: Monitor BP. 10. Anemia, POA: Monitor. Subjective: Patient was seen and examined at the bedside. No new complaint. Objective: General appearance: well-developed, appears stated age, not in distress HEENT: ATNC Neck: trachea midline Respiratory: ctab Heart: regular, S1S2, no murmur Gastrointestinal: soft, normoactive bowel sounds, not tender Integumentary: no rash, warm and dry Ext: no edema Neurologic: alert, able to move extremities, confusion noted Ext: trace LE edema : Hair catheter Subjective Date of service: 06/22/20 Principal diagnosis: shock Objective - Vital Signs Vital signs: Vital Signs - 12hr 06/22/20 06/22/20 03:35 08:05 Temperature 97.4 F L 98.6 F Pulse Rate 73 82 Respiratory 16 20 Rate Blood Pressure 104/42 142/49 O2 Sat by Pulse 96 93 Oximetry - Lab 06/20/20 06:00 06/22/20 16:38 Most recent lab results ABG pH 7.329 pH Units (7.350-7.450) L 06/06/20 11:18 ABG pCO2 27.8 mm Hg 06/06/20 11:18 ABG pO2 258.1 mm Hg (80.0-90.0) H 06/06/20 11:18 ABG HCO3 14.3 mmol/L (20.0-26.0) L 06/06/20 11:18 ABG O2 Saturation 99.4 % (95.0-99.0) H 06/06/20 11:18 Calcium 6.7 mg/dL (8.4-10.2) L 06/22/20 05:16 Phosphorus 3.20 mg/dL (2.5-4.5) D 06/22/20 05:16 Magnesium 1.20 mg/dL (1.7-2.3) L 06/22/20 05:16 Urine Creatinine 57.0 mg/dL (0.1-20.0) H 06/06/20 21:05 Urine Sodium 85 mmol/L 06/06/20 21:05 Medications & Allergies - Medications Allergies/Adverse Reactions: Allergies No Known Allergies Allergy (Verified 06/06/20 15:21) Home Medications: Home Medications Medication Instructions Recorded Confirmed Last Taken Type Amlodipine Besylate [Norvasc] 5 mg PO QDAY 06/06/20 06/06/20 Unknown History Calcium Carb/Magnesium Hydrox 500 mg PO QDAY 06/06/20 06/06/20 Unknown History [Antacid 1000-200 mg Tab Chew] Cholecalciferol (Vitamin D3) 2,000 unit PO QDAY 06/06/20 06/06/20 Unknown History [Vitamin D3 2,000 UNIT CAP] Dicyclomine [Bentyl] 10 mg PO TID 06/06/20 06/06/20 Unknown History Insulin Lispro [Insulin Lispro 10 unit SQ TID 06/06/20 06/06/20 Unknown History Kwikpen U-100] Magnesium Citrate [Citroma] 296 ml PO QDAY 06/06/20 06/06/20 Unknown History Melatonin [Melatonin 3MG TAB] 6 mg PO QHS 06/06/20 06/06/20 Unknown History Pantoprazole [Protonix TAB] 40 mg PO QDAY 06/06/20 06/06/20 Unknown History Pioglitazone HCl [Actos] 30 mg PO QDAY 06/06/20 06/06/20 Unknown History Pravastatin Sodium [Pravastatin] 10 mg PO QHS 06/06/20 06/06/20 Unknown History allopurinoL [Zyloprim] 100 mg PO QDAY 06/06/20 06/06/20 Unknown History Cholestyramine (with Sugar) 4 gm PO BID #60 packet 06/17/20 Unknown Rx [Questran] Famotidine [Pepcid] 20 mg PO QDAY #30 tablet 06/17/20 Unknown Rx Metoprolol [Lopressor TAB] 25 mg PO BID #60 tablet 06/17/20 Unknown Rx Sodium Bicarbonate 650 mg PO TID #30 tablet 06/17/20 Unknown Rx Tamsulosin [Flomax] 0.4 mg PO QDAY #30 capsule 06/17/20 Unknown Rx Active Medications: Generic Name Dose Route Start Last Admin Trade Name Freq PRN Reason Stop Dose Admin Acetaminophen 650 mg 06/06/20 15:00 06/22/20 02:59 Acetaminophen 325 Mg Tab PO 650 mg Q6H PRN Administration Pain, Mild (1-3) Albuterol 2.5 mg 06/06/20 15:00 Albuterol 2.5 Mg/3 Ml Nebu IH Q3HRT PRN Shortness Of Breath Allopurinol 100 mg 06/07/20 10:00 06/22/20 10:04 Allopurinol 100 Mg Tab PO 100 mg QDAY YELENA Administration Calcium Carbonate/Glycine 500 mg 06/07/20 10:00 06/22/20 10:04 Calcium Carbonate 500 Mg Tab Chew PO 500 mg QDAY YELENA Administration Cholecalciferol 2,000 unit 06/07/20 10:00 06/22/20 10:04 Cholecalciferol (Vit D3) 1000 Unit (25 Mcg) Tab PO 2,000 unit QDAY YELENA Administration Cholestyramine Resin 4 gm 06/12/20 22:00 06/22/20 10:04 Cholestyramine (With Sugar) 4 Gm Packet PO 4 gm BID YELENA Administration Dicyclomine HCl 10 mg 06/06/20 20:00 06/22/20 10:04 Dicyclomine 10 Mg Cap PO 10 mg TID YELENA Administration Famotidine 20 mg 06/13/20 10:00 06/22/20 10:04 Famotidine 20 Mg Tab PO 20 mg QDAY YELENA Administration Levofloxacin/Dextrose 750 mg in 150 mls @ 100 mls/hr 06/20/20 16:00 06/20/20 16:33 Levaquin 750mg/150ml IV 06/26/20 15:59 100 mls/hr Q48H YELENA Administration Protocol Metronidazole 500 mg in 100 mls @ 100 mls/hr 06/20/20 18:00 06/22/20 02:47 Flagyl 500 Mg/100 Ml IV 06/27/20 10:59 100 mls/hr Q8H YELENA Administration Protocol Magnesium Citrate 300 ml 06/06/20 16:20 Magnesium Citrate 300 Ml Oral Liqd PO QDAY PRN Constipation Metoprolol Tartrate 25 mg 06/09/20 22:00 06/22/20 10:04 Metoprolol Tartrate 25 Mg Tab PO 25 mg BID YELENA Administration Pravastatin Sodium 10 mg 06/06/20 22:00 06/21/20 22:24 Pravastatin 20 Mg Tab PO 10 mg QHS YELENA Administration Sodium Bicarbonate 650 mg 06/16/20 20:00 06/22/20 10:04 Sodium Bicarbonate 650 Mg Tab PO 650 mg TID YELENA Administration Sodium Chloride 10 ml 06/06/20 15:00 06/22/20 10:05 Sodium Chloride 0.9% 10 Ml Flush Syringe IV 10 ml BID YELENA Administration Sodium Chloride 10 ml 06/06/20 15:00 Sodium Chloride 0.9% 10 Ml Flush Syringe IV PRN PRN LINE FLUSH Tamsulosin HCl 0.4 mg 06/14/20 11:00 06/22/20 10:04 Tamsulosin 0.4 Mg Cap PO 0.4 mg QDAY YELENA Administration
[2020-06-22] MEDS ORDERED: POTASSIUM CHLORIDE ER 20 MEQ TAB PO NR (12:28)
[2020-06-22] MEDS ORDERED: MAGNESIUM SULFATE 4 GM/100 ML BAG IV ONE (12:30)
--- NOTE | 2020-06-22 13:54 | Progress Note ---
Assessment and Plan Assessment and plan: Septic Shock-resolved. Completed antibiotics Metabolic encephalopathy. Resolved Coag negative Staphylococcus 1/4 bottles. Likely contaminant Urinary tract infection. Urine culture showed no growth. Extensive colitis: C. difficile negative. On Levaquin and Flagyl given abnormal CT abdomen. Antidiarrheals Acute hypoxic respiratory failure-improved. Continue oxygen supplementation. COVID-19 negative Acute kidney injury secondary to vasomotor nephropathy. Nephrology on board Atrial fibrillation with RVR-rate is well controlled. On amiodarone. Cardiology recommendations appreciated Recurrent fevers. Repeat blood cultures negative so far Electrolyte abnormalities-has hypomagnesemia and hypokalemia. Replete Discharge planning. Plan to discharge to skilled facility when stable. History Interval history: 80-year-old male who is a resident of assisted living facility with vascular dementia, cerebral sclerosis, debility, diabetes mellitus who presents to the emergency department on 06/06 with complaints of lethargy and diminished cognition as per daughter he developed an episode of unresponsiveness while at breakfast at at his assisted living facility. Patient was found to have a urinary tract infection complicated by sepsis and septic shock, acute kidney injury, toxic metabolic encephalopathy as well as metabolic acidosis. Patient was hypotensive with systolic blood pressures in the 50s and was initiated on vasopressor support in the emergency department. Patient was admitted to the hospital serv ice with consults to nephrology and [facility]. Hospital course 06/07: Patient remains on dopamine, vasopressin and Levophed. Nephrology has started the patient on sodium bicarbonate drip for metabolic acidosis. Infectious disease initiated vancomycin in addition to the cefepime and ordered a C. difficile. 06/08: Patient has gram-positive cocci bacteremia in 1/4 bottles which grew to be coag negative staph coccus and he has repeat blood cultures in progress. Urine culture has no growth to date and he is on IV vancomycin and cefepime. Yesterday we ordered a C. difficile PCR which is pending. Patient had a moment of tachycardia into the 130s and a stat EKG was obtained. Patient was given amiodarone bolus by [facility] and cardiology was consulted. Patient is hyperchloremic today however his metabolic acidosis and BUN/creatinine is slightly improved to 93/3.2 from 100/3.6 and his repeat lactic acid is 1.5. At the time my examination patient was on Levophed at 6, vasopressin 0.03 and dopamine at 6. This morning patient failed his swallow eval and ST evaluation was ordered. Of note patient's echocardiogram shows reduced 15 to 20% with borderline left ventricular hypertrophy. 06/09: This morning his speech evaluation was completed and he has been cleared for mechanical soft diet with thin liquids. Patient complained of right-sided chest pain with radiation to shoulders and a stat EKG cardiac enzymes were ordered. Patient was recultured yesterday and those have no growth to date and his vancomycin was stopped. Infectious disease team recommends removal of Torres catheter when feasible and a CT abdomen/pelvis when stable. Patient has been cleared to transfer to the floor by cardiology and CCM. 06/10/2020; patient is on IV cefepime for sepsis due to UTI day 3 out of 5. Vancomycin discontinued. Patient is complaining pleuritic chest pain. Patient was evaluated by cardiology for elevated troponin and episode of A. fib on admission. Cardiology discontinued amiodarone and put her on Lopressor. Cardiology recommend against anticoagulation because of patient's anemia. Hemoglobin this morning was 7.4 and anemia work-up is in progress. I did ordered CT abdomen and pelvis. PT OT evaluation. Patient has ISAAC and nephrology is following. Patient has rectal tube and liquid stool in the bag. I ordered stool for C. difficile. We will continue to monitor. 06/11/2020; patient is on cefepime day 06/06. CT abdomen and pelvis was done and significant for colitis, ischemic colitis is possibility given hypotension and elevated lactic acid level. I will consult GI. Patient has episode of A. fib for less than 24 hours, cardiology was consulted and recommend to be on Lopressor. No need for coagulation because of his anemia. Hemoglobin this morning is improved to 8. Anemia work-up was done, no iron deficiency anemia identified. ISAAC is improving. C. difficile was negative. 06/12/2020; continue cefepime per ID recommendation. CT abdomen and pelvis is significant for ischemic colitis likely due to septic shock, hypotension. Patient was seen by GI and recommend no further intervention at this time. Patient had episode of A. fib on admission for less than 24 hours and cardiology recommend to continue on Lopressor, no anticoagulation needed. Hemoglobin is improving. Patient came from assisted living facility. Patient need Covid test before discharge. ISAAC is improving. Creatinine this morning was 1.7. Nephrology is following. OT evaluated and recommend subacute rehab, PT evaluation is pending. 06/13: Replace K and Mag, continue to monitor renal fuction, Continue abx per ID, c.diff negative. patient still with Rectal tube and Torres but will re- evaluate for possible discontinuation. Questran started by GI. Will continue to monitor and replace electrolytes Discussed with nursing staff to change torres to condom catheter CM to try and ascertain patients functional status prior to hospitalization 06/14: Patient showing some clinical improvement Torres replaced due to urinary retention about 1000 cc of clear urine removed. Flomax started. PT OT consu lted as patient is noted to have been ambulatory prior to this admission will likely need SNF placement. Diarrhea consistency is improving anticipate discharge in 24 to 48 hours once approval is obtained. Cardiology input is noted Lopressor 25 mg p.o. twice daily possible addition of SABIHA inhibitor or ARB when okay with nephrology as regular this is a is improving. At this time no AC for A. fib management due to anemia and the transient nature of the A. fib which was less than 24 hours. 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 Unknown etiology or chronicity of these diagnoses. No current clinical evidence of acutely decompensated HF. Per [facility] records, pt saw [facility] cardiology in 1998 and underwent LHC which did not show any significant findings. Continue with conservative cardiac management given pt's advanced age, dementia and multiple co-morbidities. Recommend pt follow up in our office with Dr. Rosa within 2 weeks of discharge ([phone]). 06/15: Continue supportive care. Will give a unit of PRBC and anticipate discharge today or tomorrow once approval from insurance company obtained. PATIENT will need urology follow up outpatient and also cardiology outpatient. Discussed with patient and Case management Continue PT OT 06/16: Still awaiting prior approval from the insurance company for patient to be discharged. Continue supportive care thrombocytopenia noted again antiplatelets are on hold. We will continue to monitor anticipate discharge once prior authorization is received from insurance [employer]. Continue rehab therapy while in house 06/17: Severe hyperkalemia noted in the setting of renal dysfunction. Will hold discharge. Also patient with intermittent fevers culture still on resolved. Bolus of fluid given will also give some Kayexalate to correct hyperkalemia. 06/18: Still with low-grade fever. White count still normal. Potassium mild hypokalemia. Will monitor closely renal function showing some improvement. If continues to improve we will anticipate discharge tomorrow. Still with elevated troponin but improved compared to prior. No respiratory compromise noted at this time diarrhea still present. Will discuss with ID if patient should empirically be treated with p.o. vancomycin despite negative C. difficile for with Flagyl. 06/19: Considering noted deformity on bilateral shoulders will obtain an x-ray just to ensure that there is no other acute event. I reviewed the chart and not has been done. Continue bicarb drip may need to decrease rate but will defer to museum guide. Awaiting labs from today. Anticipate discharge in a.m. we will also rule out bilateral upper extremity DVT due to the swelling. 06/20: Patient is a 80-year-old male who presented to the hospital for dialysis related facility with complaints of lethargy diminished cognition diagnosed with septic shock with diarrhea but with C. difficile negative during hospital stay was noted to be cardiac arrhythmia with tachycardia resolved with amiodarone. Was also noted to have ISAAC likely secondary to ATN showed some improvement and stabilized. Diarrhea persisted was managed with fecal management system with ID input noted. Fortunately the past few days has been having recurrent fever today noted to have a distended abdomen although nontender CT abdomen and pelvis with oral contrast was added following clearance from museum guide. 06/21. Patient seen and examined at bedside this morning. Ultrasound of the upper extremities showed no DVT. He has been advised to elevate right upper extremity to improve swelling. Potassium is very low today he will get potassium replacement. Plan for possible discharge tomorrow. Remained afebrile overnight 06/22. Having electrolyte abnormalities. Repleting. Will repeat levels this PM. On Antibiotics for colitis. Will dc when his electrolytes become stable. Hospitalist Physical - Physical exam Narrative exam: VITAL SIGNS: Reviewed. GENERAL: Awake HEAD: No signs of head trauma. EYES: Pupils are equal. Extraocular motions intact. MOUTH: Oropharynx is normal. NECK: No adenopathy, no JVD. CHEST: Chest with diminished breath sounds bilaterally. No wheezes, rales, or rhonchi. CARDIAC: normal S1 and S2, without murmurs, gallops, or rubs. ABDOMEN: Soft, non tender and non distended. No rebound or guarding, and no masses palpated. Bowel Sounds normal. MUSCULOSKELETAL: No edema NEUROLOGIC EXAM: Alert and oriented x3. No focal neurologic deficits SKIN: No obvious lesions - Constitutional Vitals: Temp Pulse Resp BP Pulse Ox 98.6 F 81 18 131/54 98 06/22/20 11:14 06/22/20 11:14 06/22/20 11:14 06/22/20 11:14 06/22/20 11:14 HEART Score - HEART Score Troponin: Troponin T 0.141 ng/mL (0.00-0.029) H* 06/18/20 10:39 Results - Labs CBC & Chem 7: 06/20/20 06:00 06/22/20 05:16 Labs: Laboratory Last Values WBC 4.9 K/mm3 (4.5-11.0) 06/20/20 06:00 RBC 2.48 M/mm3 (3.65-5.03) L 06/20/20 06:00 Hgb 8.1 gm/dl (11.8-15.2) L 06/20/20 06:00 Hct 23.9 % (35.5-45.6) L 06/20/20 06:00 MCV 97 fl (84-94) H 06/20/20 06:00 MCH 33 pg (28-32) H 06/20/20 06:00 MCHC 34 % (32-34) 06/20/20 06:00 RDW 14.0 % (13.2-15.2) 06/20/20 06:00 Plt Count 279 K/mm3 (140-440) 06/20/20 06:00 Lymph % (Auto) 6.8 % (13.4-35.0) L 06/13/20 06:13 [place] % (Auto) 5.0 % (0.0-7.3) 06/13/20 06:13 Eos % (Auto) 1.7 % (0.0-4.3) 06/13/20 06:13 Baso % (Auto) 0.2 % (0.0-1.8) 06/13/20 06:13 Lymph # (Auto) 0.9 K/mm3 (1.2-5.4) L 06/13/20 06:13 [place] # (Auto) 0.7 K/mm3 (0.0-0.8) 06/13/20 06:13 Eos # (Auto) 0.2 K/mm3 (0.0-0.4) 06/13/20 06:13 Baso # (Auto) 0.0 K/mm3 (0.0-0.1) 06/13/20 06:13 Add Manual Diff Complete 06/16/20 12:50 Total Counted 100 06/16/20 12:50 Seg Neutrophils % 86.3 % (40.0-70.0) H 06/13/20 06:13 Seg Neuts % (Manual) 65.0 % (40.0-70.0) 06/16/20 12:50 Band Neutrophils % 20.0 % 06/16/20 12:50 Lymphocytes % (Manual) 6.0 % (13.4-35.0) L 06/16/20 12:50 Reactive Lymphs % (Man) 1.0 % 06/12/20 05:24 Monocytes % (Manual) 9.0 % (0.0-7.3) H 06/16/20 12:50 Eosinophils % (Manual) 2.0 % (0.0-4.3) 06/12/20 05:24 Nucleated RBC % Not Reportable 06/16/20 12:50 Seg Neutrophils # 11.9 K/mm3 (1.8-7.7) H 06/13/20 06:13 Seg Neutrophils # Man 7.2 K/mm3 (1.8-7.7) 06/16/20 12:50 Band Neutrophils # 2.2 K/mm3 06/16/20 12:50 Lymphocytes # (Manual) 0.7 K/mm3 (1.2-5.4) L 06/16/20 12:50 Abs React Lymphs (Man) 0.0 K/mm3 06/16/20 12:50 Monocytes # (Manual) 1.0 K/mm3 (0.0-0.8) H 06/16/20 12:50 Eosinophils # (Manual) 0.0 K/mm3 (0.0-0.4) 06/16/20 12:50 Basophils # (Manual) 0.0 K/mm3 (0.0-0.1) 06/16/20 12:50 Metamyelocytes # 0.0 K/mm3 06/16/20 12:50 Myelocytes # 0.0 K/mm3 06/16/20 12:50 Promyelocytes # 0.0 K/mm3 06/16/20 12:50 Blast Cells # 0.0 K/mm3 06/16/20 12:50 WBC Morphology Not Reportable 06/16/20 12:50 Hypersegmented Neuts Not Reportable 06/16/20 12:50 Hyposegmented Neuts Not Reportable 06/16/20 12:50 Hypogranular Neuts Not Reportable 06/16/20 12:50 Smudge Cells Not Reportable 06/16/20 12:50 Toxic Granulation Not Reportable 06/16/20 12:50 Toxic Vacuolation Not Reportable 06/16/20 12:50 Dohle Bodies Not Reportable 06/16/20 12:50 Pelger-Huet Anomaly Not Reportable 06/16/20 12:50 Denys Rods Not Reportable 06/16/20 12:50 Platelet Estimate Consistent w auto 06/16/20 12:50 Clumped Platelets Rare 06/16/20 12:50 Plt Clumps, EDTA Not Reportable 06/16/20 12:50 Large Platelets Rare 06/16/20 12:50 Giant Platelets Not Reportable 06/16/20 12:50 Platelet Satelliting Not Reportable 06/16/20 12:50 Plt Morphology Comment Not Reportable 06/16/20 12:50 RBC Morphology Normal 06/16/20 12:50 Dimorphic RBCs Not Reportable 06/16/20 12:50 Polychromasia Not Reportable 06/16/20 12:50 Hypochromasia Not Reportable 06/16/20 12:50 Poikilocytosis Not Reportable 06/16/20 12:50 Anisocytosis Not Reportable 06/16/20 12:50 Microcytosis Not Reportable 06/16/20 12:50 Macrocytosis Not Reportable 06/16/20 12:50 Spherocytes Not Reportable 06/16/20 12:50 Pappenheimer Bodies Not Reportable 06/16/20 12:50 Sickle Cells Not Reportable 06/16/20 12:50 Target Cells Not Reportable 06/16/20 12:50 Tear Drop Cells Not Reportable 06/16/20 12:50 Ovalocytes Not Reportable 06/16/20 12:50 Helmet Cells Not Reportable 06/16/20 12:50 [place] Bodies Not Reportable 06/16/20 12:50 Vanderbilt Rings Not Reportable 06/16/20 12:50 [place] Cells Not Reportable 06/16/20 12:50 Bite Cells Not Reportable 06/16/20 12:50 Crenated Cell Not Reportable 06/16/20 12:50 Elliptocytes Not Reportable 06/16/20 12:50 Acanthocytes (Spur) Not Reportable 06/16/20 12:50 Rouleaux Not Reportable 06/16/20 12:50 Hemoglobin C Crystals Not Reportable 06/16/20 12:50 Schistocytes Not Reportable 06/16/20 12:50 Malaria parasites Not Reportable 06/16/20 12:50 Chance Bodies Not Reportable 06/16/20 12:50 Hem Pathologist Commnt No 06/16/20 12:50 PT 16.3 Sec. (12.2-14.9) H 06/06/20 10:19 INR 1.33 (0.87-1.13) H 06/06/20 10:19 APTT 31.6 Sec. (24.2-36.6) 06/06/20 10:19 ABG pH 7.329 pH Units (7.350-7.450) L 06/06/20 11:18 ABG pCO2 27.8 mm Hg 06/06/20 11:18 ABG pO2 258.1 mm Hg (80.0-90.0) H 06/06/20 11:18 ABG HCO3 14.3 mmol/L (20.0-26.0) L 06/06/20 11:18 ABG O2 Saturation 99.4 % (95.0-99.0) H 06/06/20 11:18 ABG O2 Content 13.2 (0.0-44) 06/06/20 11:18 ABG Base Excess -10.5 mmol/L (-2.0-3.0) L 06/06/20 11:18 ABG Hemoglobin 9.1 gm/dl (14.0-18.0) L 06/06/20 11:18 ABG Carboxyhemoglobin 1.3 % (0.0-5.0) 06/06/20 11:18 ABG Methemoglobin Not Reportable 06/06/20 11:18 VBG pH 7.438 (7.320-7.420) H 06/06/20 10:19 Oxyhemoglobin 98.2 % (95.0-99.0) 06/06/20 11:18 FiO2 21 % 06/06/20 11:18 Sodium 138 mmol/L (137-145) 06/22/20 05:16 Potassium 2.6 mmol/L (3.6-5.0) L* 06/22/20 05:16 Chloride 105.6 mmol/L (98-107) 06/22/20 05:16 Carbon Dioxide 24 mmol/L (22-30) 06/22/20 05:16 Anion Gap 11 mmol/L 06/22/20 05:16 BUN 31 mg/dL (9-20) H 06/22/20 05:16 Creatinine 1.4 mg/dL (0.8-1.3) H 06/22/20 05:16 Estimated GFR 59 ml/min 06/22/20 05:16 BUN/Creatinine Ratio 22 % 06/22/20 05:16 Glucose 74 mg/dL (75-100) L 06/22/20 05:16 POC Glucose 59 mg/dL (70-105) L 06/22/20 11:10 Lactic Acid 1.50 mmol/L (0.7-2.0) 06/08/20 05:15 Calcium 6.7 mg/dL (8.4-10.2) L 06/22/20 05:16 Phosphorus 3.20 mg/dL (2.5-4.5) D 06/22/20 05:16 Magnesium 1.20 mg/dL (1.7-2.3) L 06/22/20 05:16 Iron 54 ug/dL (49-181) 06/10/20 10:44 TIBC 157 mcg/dL (250-450) L 06/10/20 10:44 Ferritin 569.5 ng/mL (30.0-300.0) H 06/10/20 10:44 Total Bilirubin 0.20 mg/dL (0.1-1.2) 06/14/20 05:23 AST 19 units/L (5-40) 06/14/20 05:23 ALT 20 units/L (7-56) 06/14/20 05:23 Alkaline Phosphatase 55 units/L (35-129) 06/14/20 05:23 Ammonia 64.0 umol/L (25-60) H 06/06/20 10:19 Total Creatine Kinase 1212 units/L (55-170) H 06/09/20 12:57 CK-MB (CK-2) 12.1 ng/mL (0.0-4.0) H 06/09/20 12:57 CK-MB (CK-2) Rel Index 0.9 (0-4) 06/09/20 12:57 Troponin T 0.141 ng/mL (0.00-0.029) H* 06/18/20 10:39 Total Protein 4.9 g/dL (6.3-8.2) L 06/14/20 05:23 Albumin 2.4 g/dL (3.9-5) L 06/14/20 05:23 Albumin/Globulin Ratio 1.0 % 06/14/20 05:23 Triglycerides 103 mg/dL (2-149) 06/06/20 10:19 Cholesterol 84 mg/dL (50-199) 06/06/20 10:19 LDL Cholesterol Direct 28 mg/dL (50-130) L 06/06/20 10:19 HDL Cholesterol 44 mg/dL (40-59) 06/06/20 10:19 Cholesterol/HDL Ratio 1.90 % 06/06/20 10:19 Vitamin B12 1170 pg/mL (211-911) H 06/10/20 14:49 TSH 4.440 mlU/mL (0.270-4.200) H 06/06/20 10:19 Free T4 1.55 ng/dL (0.76-1.46) H 06/06/20 10:19 PTH Intact 271.9 pg/mL (15-65) H 06/08/20 05:15 Urine Color Yellow (Yellow) 06/06/20 14:02 Urine Turbidity Cloudy (Clear) 06/06/20 14:02 Urine pH 6.0 (5.0-7.0) 06/06/20 14:02 Ur Specific [place] 1.013 (1.003-1.030) 06/06/20 14:02 Urine Protein 100 mg/dl mg/dL (Negative) 06/06/20 14:02 Urine Glucose (UA) Neg mg/dL (Negative) 06/06/20 14:02 Urine Ketones Neg mg/dL (Negative) 06/06/20 14:02 Urine Blood Sm (Negative) 06/06/20 14:02 Urine Nitrite Neg (Negative) 06/06/20 14:02 Urine Bilirubin Neg (Negative) 06/06/20 14:02 Urine Urobilinogen < 2.0 mg/dL (<2.0) 06/06/20 14:02 Ur Leukocyte Esterase Lg (Negative) 06/06/20 14:02 Urine WBC (Auto) > 182.0 /HPF (0.0-6.0) H 06/06/20 14:02 Urine RBC (Auto) 55.0 /HPF (0.0-6.0) 06/06/20 14:02 U Epithel Cells (Auto) 1.0 /HPF (0-13.0) 06/06/20 14:02 Urine WBC Clumps 2+ /HPF 06/06/20 14:02 Urine Creatinine 57.0 mg/dL (0.1-20.0) H 06/06/20 21:05 Urine Sodium 85 mmol/L 06/06/20 21:05 Random Vancomycin 9.8 ug/mL (0-40.0) 06/09/20 04:30 Urine Opiates Screen Presumptive negative 06/06/20 14:02 Urine Methadone Screen Presumptive negative 06/06/20 14:02 Ur Barbiturates Screen Presumptive negative 06/06/20 14:02 Ur Phencyclidine Scrn Presumptive negative 06/06/20 14:02 Ur Amphetamines Screen Presumptive negative 06/06/20 14:02 U Benzodiazepines Scrn Presumptive negative 06/06/20 14:02 Urine Cocaine Screen Presumptive negative 06/06/20 14:02 U Marijuana (THC) Screen Presumptive negative 06/06/20 14:02 Drugs of Abuse Note Disclamer 06/06/20 14:02 Plasma/Serum Alcohol < 0.01 % (0-0.07) 06/06/20 10:19 C. difficile Tox (PCR) Negative (Negative) 06/08/20 Unknown Coronavirus (PCR) Negative (Negative) 06/14/20 10:35 Blood Type O POSITIVE 06/15/20 11:00 Antibody Screen Negative 06/15/20 11:00 Crossmatch See Detail 06/15/20 11:00 Microbiology: Microbiology 06/16/20 17:49 Peripheral/Venous Blood Culture - Final NO GROWTH AFTER 5 DAYS 06/16/20 17:49 Peripheral/Venous Blood Culture - Final NO GROWTH AFTER 5 DAYS 06/20/20 15:43 Peripheral/Venous Blood Culture - Preliminary NO GROWTH AFTER 24 HOURS 06/20/20 15:43 Peripheral/Venous Blood Culture - Preliminary NO GROWTH AFTER 24 HOURS Torres/IV: Voiding Method Indwelling Catheter Active Medications - Current Medications Current Medications: Generic Name Dose Route Start Last Admin Trade Name Freq PRN Reason Stop Dose Admin Acetaminophen 650 mg 06/06/20 15:00 06/22/20 02:59 Acetaminophen 325 Mg Tab PO 650 mg Q6H PRN Administration Pain, Mild (1-3) Albuterol 2.5 mg 06/06/20 15:00 Albuterol 2.5 Mg/3 Ml Nebu IH Q3HRT PRN Shortness Of Breath Allopurinol 100 mg 06/07/20 10:00 06/22/20 10:04 Allopurinol 100 Mg Tab PO 100 mg QDAY YELENA Administration Calcium Carbonate/Glycine 500 mg 06/07/20 10:00 06/22/20 10:04 Calcium Carbonate 500 Mg Tab Chew PO 500 mg QDAY YELENA Administration Cholecalciferol 2,000 unit 06/07/20 10:00 06/22/20 10:04 Cholecalciferol (Vit D3) 1000 Unit (25 Mcg) Tab PO 2,000 unit QDAY YELENA Administration Cholestyramine Resin 4 gm 06/12/20 22:00 06/22/20 10:04 Cholestyramine (With Sugar) 4 Gm Packet PO 4 gm BID YELENA Administration Dicyclomine HCl 10 mg 06/06/20 20:00 06/22/20 10:04 Dicyclomine 10 Mg Cap PO 10 mg TID YELENA Administration Famotidine 20 mg 06/13/20 10:00 06/22/20 10:04 Famotidine 20 Mg Tab PO 20 mg QDAY YELENA Administration Levofloxacin/Dextrose 750 mg in 150 mls @ 100 mls/hr 06/20/20 16:00 06/20/20 16:33 Levaquin 750mg/150ml IV 06/26/20 15:59 100 mls/hr Q48H YELENA Administration Protocol Metronidazole 500 mg in 100 mls @ 100 mls/hr 06/20/20 18:00 06/22/20 02:47 Flagyl 500 Mg/100 Ml IV 06/27/20 10:59 100 mls/hr Q8H YELENA Administration Protocol Magnesium Sulfate 4 gm in 100 mls @ 25 mls/hr 06/22/20 12:30 Magnesium Sulfate 4gm/100ml IV 06/22/20 16:29 ONCE ONE Loperamide HCl 2 mg 06/22/20 12:30 Loperamide 2 Mg Cap PO Q2H PRN Diarrhea Magnesium Citrate 300 ml 06/06/20 16:20 Magnesium Citrate 300 Ml Oral Liqd PO QDAY PRN Constipation Metoprolol Tartrate 25 mg 06/09/20 22:00 06/22/20 10:04 Metoprolol Tartrate 25 Mg Tab PO 25 mg BID YELENA Administration Pravastatin Sodium 10 mg 06/06/20 22:00 06/21/20 22:24 Pravastatin 20 Mg Tab PO 10 mg QHS YELENA Administration Sodium Bicarbonate 650 mg 06/16/20 20:00 06/22/20 10:04 Sodium Bicarbonate 650 Mg Tab PO 650 mg TID YELENA Administration Sodium Chloride 10 ml 06/06/20 15:00 06/22/20 10:05 Sodium Chloride 0.9% 10 Ml Flush Syringe IV 10 ml BID YELENA Administration Sodium Chloride 10 ml 06/06/20 15:00 Sodium Chloride 0.9% 10 Ml Flush Syringe IV PRN PRN LINE FLUSH Tamsulosin HCl 0.4 mg 06/14/20 11:00 06/22/20 10:04 Tamsulosin 0.4 Mg Cap PO 0.4 mg QDAY YELENA Administration Nutrition/Malnutrition Assess - Dietary Evaluation Nutrition/Malnutrition Findings: Nutrition Notes Start: 06/08/20 11:43 Freq: Status: Active Protocol: Document 06/21/20 14:09 (Rec: 06/21/20 14:15 [id number]) Nutrition Notes Initial or Follow up Reassessment Current Diagnosis Acute Kidney Injury,Diabetes, Hypertension Other Pertinent Diagnosis AMS, Dementia, UTI, metabolic encephalopathy, ?s/p CVA? Current Diet Mechanical soft diet + ONS BID Labs/Tests K 2.4 BUN 35 Cr 1.4 Phos 2 Pertinent Medications Potassium phosphate 45 mmol Height 5 ft 8 in Weight 85.6 kg Usual Body Weight 120.45 kg [place] Body Weight (kg) 70.00 BMI 28.7 Weight change and time frame 29% wt loss in 1.5 years (not significant) Weight Status Appropriate Subjective/Other Information FU for intakes. Pt eating an average of 25% of meals. Pt would like hamburger for dinner. Pt drank 50% of ONS at time of visit. Percent of energy/protein needs met: 35%/55% Burn Absent Trauma Absent GI Symptoms Diarrhea Difficulty In Swallowing Skin Integrity/Comment Stage 1 pressure ulcer Current % PO Fair (50-74%) Minimum of two criteria No Fluid Accumulation Mild (non-severe) #2 Nutrition Diagnosis Increased nutrient needs ( specify in comment below) Diagnosis Progress(for reassessment Continues documentation) #1 Nutrition Diagnosis Inadequate oral intake As Evidenced by Signs and Symptoms Pt eating 25% of meals Diagnosis Progress(for reassessment Worsened documentation) Is patient on ventilator? No Is Patient Ambulatory and/or Out of Bed Yes REE-([facility]-ambulatory/OOB) [ 2009.150 [id number]] Calculation Used for Recommendations [facility] Additional Notes protein needs: 62 - 153g (0.8 - 1.2g/kgBW for ISAAC) fluid needs: 1 ml/kcal Nutrition Intervention Change Diet Order: Continue Mechanical Soft Diet and ONS Add Supplement/Snack (indicate name/kcal Nepro TID /protein ) Provides kCal: 1,275 Provides Protein (gm) 57 Goal #1 Meet at least 75% of kcal and proteins via PO and ONS Goal #2 wound healing Anticipated Discharge Needs: Mechanical Soft diet + ONS PRN Follow-Up By: 06/23/20 Additional Comments F/U intakes and ONS tolerance
--- NOTE | 2020-06-22 15:04 | Progress Note ---
Assessment and Plan Cultures: Blood culture 06/06/2020 coagulase-negative staph 1 out of 4 Blood culture 06/08/2020 no growth today C. difficile PCR negative SARS-CoV-2 PCR negative Urine culture 06/07/2020 no growth Blood culture 06/20/2020 no growth so far Assessment: 80 years old male with history of dementia, CVA, debility, diabetes mellitus, secondary to few hours of unresponsiveness at breakfast at his assisted living facility: #Sepsis with septic shock: Resolved, remarkable improvement, off pressors; source UTI +/- colitis. Completed cefepime 5 days #Extensive colitis: remains with large foul smelling diarrhea. seen on CT ? ischemia. C diff neg #Coagulase-negative staph bacteremia: 1 out of 4 likely contaminant. #Acute hypoxemic respiratory failure: now on NC O2. CXR clear. SARS-CoV-2 PCR negative. #UTI: with hematuria, urine culture no growth #Acute encephalopathy: due to sepsis> CT no acute changes. Resolved. #ISAAC: ? from sepsis, a little worse now #RVR A. fib: On amiodarone, cardiology on board #Thrombocytopenia: Monitor platelets, likely due to sepsis, resolved. Recommendations: -Avoid laxative -Started Levaquin 750mg q48h and Flagyl 500mg q8h given abnormal CT. Complete 7 days. If improved can DC with PO of both. Narayan Rowley MD [facility] ([facility]) O: [phone] F: [phone] Subjective Date of service: 06/22/20 Principal diagnosis: shock Interval history: Afebrile, normal white count. No acute change. Objective - Exam Narrative Exam: General appearance: Alert in NAD on NC O2 Eyes: anicteric sclerae, moist conjunctivae; no lid-lag; PERRLA HENT: Normocephalic, Atraumatic; normal external ears, nares open, edentulous Neck: supple, tracheal midline, no JVD Lungs: Clear to auscultation bilaterally CV: RRR no murmur Abdomen: Soft, nontender, ventral hernia Extremities: no edema, no cyanosis Skin: No rash. Psych: no agitated Neuro: Alert, follows simple commands - Constitutional Vitals: Vital Signs Temp Pulse Resp BP Pulse Ox 98.6 F 81 18 131/54 98 04/21/21 11:14 06/22/20 11:14 06/22/20 11:14 06/22/20 11:14 06/22/20 11:14 Temperature -Last 24 Hours Temperature 98.6 F Temperature 98.6 F Temperature 97.4 F Temperature 99.0 F Temperature 98.5 F Temperature 98.3 F - Labs CBC & Chem 7: 06/20/20 06:00 06/22/20 05:16 Labs: Abnormal lab results 06/21/20 06/21/20 06/21/20 Range/Units 18:15 21:42 23:21 Potassium 3.0 L D (3.6-5.0) mmol/L BUN (9-20) mg/dL Creatinine (0.8-1.3) mg/dL Glucose (75-100) mg/dL POC Glucose 63 L 56 L (70-105) mg/dL Calcium (8.4-10.2) mg/dL Magnesium (1.7-2.3) mg/dL 06/22/20 06/22/20 06/22/20 Range/Units 05:16 05:16 08:02 Potassium 2.6 L* (3.6-5.0) mmol/L BUN 31 H (9-20) mg/dL Creatinine 1.4 H (0.8-1.3) mg/dL Glucose 74 L (75-100) mg/dL POC Glucose 62 L (70-105) mg/dL Calcium 6.7 L (8.4-10.2) mg/dL Magnesium 1.20 L (1.7-2.3) mg/dL 06/22/20 Range/Units 11:10 Potassium (3.6-5.0) mmol/L BUN (9-20) mg/dL Creatinine (0.8-1.3) mg/dL Glucose (75-100) mg/dL POC Glucose 59 L (70-105) mg/dL Calcium (8.4-10.2) mg/dL Magnesium (1.7-2.3) mg/dL
[2020-06-22 17:58] LABS: Calcium 7.1 mg/dL (8.4-10.2)
[2020-06-22] MEDS: PRAVASTATIN 20 MG TAB PO SCH (21:19)
[2020-06-23] MEDS: POTASSIUM CHLORIDE ER 20 MEQ TAB PO SCH ×2 (01:27→04:43)
[2020-06-23] MEDS: metroNIDAZOLE/NS 500 MG/100 ML 500 MG/100 ML BAG IV SCH ×3 (04:35→21:33)
[2020-06-23 05:43] LABS: BUN/Creatinine Ratio 21; Blood Urea Nitrogen 27 mg/dL (9-20); Calcium 7.1 mg/dL (8.4-10.2); Hemolysis Index 4
[2020-06-23] MEDS ORDERED: PHOS-NAK POWDER PACKET PO NR (08:14)
[2020-06-23] MEDS: DICYCLOMINE 10 MG CAP PO SCH ×3 (08:59→21:32)
[2020-06-23] MEDS ORDERED: POTASSIUM CHLORIDE 10 MEQ 10 MEQ/100 ML BAG IV SCH (09:00)
[2020-06-23] MEDS ORDERED: MAGNESIUM SULFATE 4 GM/100 ML BAG IV ONE (09:00)
--- NOTE | 2020-06-23 09:37 | Progress Note ---
Assessment and Plan 1. Acute kidney injury: Vasomotor ISAAC in the setting of shock. Renal US negative for hydro. Monitor renal function. Creatinine level is better. Avoid nephrotoxic agents. Meds dosage based on GFR. 2. FEN: Hypernatremia, improved. Hypokalemia, replete K, monitor. Metabolic acidosis, improved. Replete Mg and Phos. Monitor volume status and lytes. 3. Sepsis with shock: Currently off pressors. Monitor BP. 4. UTI: S/p Abx. 5. Acute hypoxemic respiratory failure: CXR clear. COVID test negative. NC O2 as needed. 6. Colitis: C.diff negative. 7. Metabolic encephalopathy: Monitor. 8. H/o Dementia: Supportive care. 9. H/o HTN: Monitor BP. 10. Anemia, POA: Monitor. Subjective: Patient was seen and examined at the bedside. No new complaint. Objective: General appearance: well-developed, appears stated age, not in distress HEENT: ATNC Neck: trachea midline Respiratory: ctab Heart: regular, S1S2, no murmur Gastrointestinal: soft, normoactive bowel sounds, not tender Integumentary: sacral wound noted Ext: no edema Neurologic: alert, able to move extremities, confusion noted Ext: no edema : Hair catheter Subjective Date of service: 06/23/20 Principal diagnosis: shock Objective - Vital Signs Vital signs: Vital Signs - 12hr 06/23/20 06/23/20 06/23/20 00:13 05:31 07:31 Temperature 98.0 F 98.0 F 99.1 F Pulse Rate 71 78 73 Respiratory 18 20 18 Rate Blood Pressure 121/54 132/58 138/42 O2 Sat by Pulse 96 99 98 Oximetry 06/23/20 08:15 Temperature Pulse Rate Respiratory 17 Rate Blood Pressure O2 Sat by Pulse 97 Oximetry - Lab 06/20/20 06:00 06/23/20 05:00 Most recent lab results ABG pH 7.329 pH Units (7.350-7.450) L 06/06/20 11:18 ABG pCO2 27.8 mm Hg 06/06/20 11:18 ABG pO2 258.1 mm Hg (80.0-90.0) H 06/06/20 11:18 ABG HCO3 14.3 mmol/L (20.0-26.0) L 06/06/20 11:18 ABG O2 Saturation 99.4 % (95.0-99.0) H 06/06/20 11:18 Calcium 7.1 mg/dL (8.4-10.2) L 06/23/20 05:00 Phosphorus 2.20 mg/dL (2.5-4.5) L D 06/23/20 05:00 Magnesium 1.60 mg/dL (1.7-2.3) L 06/23/20 05:00 Urine Creatinine 57.0 mg/dL (0.1-20.0) H 06/06/20 21:05 Urine Sodium 85 mmol/L 06/06/20 21:05 Medications & Allergies - Medications Allergies/Adverse Reactions: Allergies No Known Allergies Allergy (Verified 06/06/20 15:21) Home Medications: Home Medications Medication Instructions Recorded Confirmed Last Taken Type Amlodipine Besylate [Norvasc] 5 mg PO QDAY 06/06/20 06/06/20 Unknown History Calcium Carb/Magnesium Hydrox 500 mg PO QDAY 06/06/20 06/06/20 Unknown History [Antacid 1000-200 mg Tab Chew] Cholecalciferol (Vitamin D3) 2,000 unit PO QDAY 06/06/20 06/06/20 Unknown History [Vitamin D3 2,000 UNIT CAP] Dicyclomine [Bentyl] 10 mg PO TID 06/06/20 06/06/20 Unknown History Insulin Lispro [Insulin Lispro 10 unit SQ TID 06/06/20 06/06/20 Unknown History Kwikpen U-100] Magnesium Citrate [Citroma] 296 ml PO QDAY 06/06/20 06/06/20 Unknown History Melatonin [Melatonin 3MG TAB] 6 mg PO QHS 06/06/20 06/06/20 Unknown History Pantoprazole [Protonix TAB] 40 mg PO QDAY 06/06/20 06/06/20 Unknown History Pioglitazone HCl [Actos] 30 mg PO QDAY 06/06/20 06/06/20 Unknown History Pravastatin Sodium [Pravastatin] 10 mg PO QHS 06/06/20 06/06/20 Unknown History allopurinoL [Zyloprim] 100 mg PO QDAY 06/06/20 06/06/20 Unknown History Cholestyramine (with Sugar) 4 gm PO BID #60 packet 06/17/20 Unknown Rx [Questran] Famotidine [Pepcid] 20 mg PO QDAY #30 tablet 06/17/20 Unknown Rx Metoprolol [Lopressor TAB] 25 mg PO BID #60 tablet 06/17/20 Unknown Rx Sodium Bicarbonate 650 mg PO TID #30 tablet 06/17/20 Unknown Rx Tamsulosin [Flomax] 0.4 mg PO QDAY #30 capsule 06/17/20 Unknown Rx Active Medications: Generic Name Dose Route Start Last Admin Trade Name Freq PRN Reason Stop Dose Admin Acetaminophen 650 mg 06/06/20 15:00 06/22/20 02:59 Acetaminophen 325 Mg Tab PO 650 mg Q6H PRN Administration Pain, Mild (1-3) Albuterol 2.5 mg 06/06/20 15:00 Albuterol 2.5 Mg/3 Ml Nebu IH Q3HRT PRN Shortness Of Breath Allopurinol 100 mg 06/07/20 10:00 06/22/20 10:04 Allopurinol 100 Mg Tab PO 100 mg QDAY YELENA Administration Calcium Carbonate/Glycine 500 mg 06/07/20 10:00 06/22/20 10:04 Calcium Carbonate 500 Mg Tab Chew PO 500 mg QDAY YELENA Administration Cholecalciferol 2,000 unit 06/07/20 10:00 06/22/20 10:04 Cholecalciferol (Vit D3) 1000 Unit (25 Mcg) Tab PO 2,000 unit QDAY YELENA Administration Cholestyramine Resin 4 gm 06/12/20 22:00 06/22/20 21:19 Cholestyramine (With Sugar) 4 Gm Packet PO 4 gm BID YELENA Administration Dicyclomine HCl 10 mg 06/06/20 20:00 06/22/20 21:19 Dicyclomine 10 Mg Cap PO 10 mg TID YELENA Administration Famotidine 20 mg 06/13/20 10:00 06/22/20 10:04 Famotidine 20 Mg Tab PO 20 mg QDAY YELENA Administration Levofloxacin/Dextrose 750 mg in 150 mls @ 100 mls/hr 06/20/20 16:00 06/22/20 16:07 Levaquin 750mg/150ml IV 06/26/20 15:59 100 mls/hr Q48H YELENA Administration Protocol Metronidazole 500 mg in 100 mls @ 100 mls/hr 06/20/20 18:00 06/23/20 04:35 Flagyl 500 Mg/100 Ml IV 06/27/20 10:59 100 mls/hr Q8H YELENA Administration Protocol Magnesium Sulfate 4 gm in 100 mls @ 25 mls/hr 06/23/20 09:00 Magnesium Sulfate 4gm/100ml IV 06/23/20 12:59 ONCE ONE Loperamide HCl 2 mg 06/22/20 12:30 Loperamide 2 Mg Cap PO Q2H PRN Diarrhea Magnesium Citrate 300 ml 06/06/20 16:20 Magnesium Citrate 300 Ml Oral Liqd PO QDAY PRN Constipation Metoprolol Tartrate 25 mg 06/09/20 22:00 06/22/20 21:20 Metoprolol Tartrate 25 Mg Tab PO 25 mg BID YELENA Administration Pravastatin Sodium 10 mg 06/06/20 22:00 06/22/20 21:19 Pravastatin 20 Mg Tab PO 10 mg QHS YELENA Administration Sodium Bicarbonate 650 mg 06/16/20 20:00 06/22/20 21:19 Sodium Bicarbonate 650 Mg Tab PO 650 mg TID YELENA Administration Sodium Chloride 10 ml 06/06/20 15:00 06/22/20 21:21 Sodium Chloride 0.9% 10 Ml Flush Syringe IV 10 ml BID YELENA Administration Sodium Chloride 10 ml 06/06/20 15:00 Sodium Chloride 0.9% 10 Ml Flush Syringe IV PRN PRN LINE FLUSH Tamsulosin HCl 0.4 mg 06/14/20 11:00 06/22/20 10:04 Tamsulosin 0.4 Mg Cap PO 0.4 mg QDAY YELENA Administration
[2020-06-23] MEDS ORDERED: POTASSIUM PHOSPHATE 30 MMOL in SODIUM CHLORIDE 0.9% 500 ML 500 ML IV ONE (10:00)
[2020-06-23] MEDS: CHOLESTYRAMINE (WITH SUGAR) 4 GM PACKET PO SCH ×2 (10:59→21:32)
[2020-06-23] MEDS: LOPERAMIDE 2 MG CAP PO PRN ×2 (10:59→21:31)
[2020-06-23] MEDS: allopurinoL 100 MG TAB PO SCH (10:59)
[2020-06-23] MEDS: CHOLECALCIFEROL (VIT D3) 1000 UNIT (25 mcg) TAB PO SCH (10:59)
[2020-06-23] MEDS: TAMSULOSIN 0.4 MG CAP PO SCH (10:59)
[2020-06-23] MEDS: CALCIUM CARBONATE 500 MG TAB CHEW PO SCH (10:59)
[2020-06-23] MEDS: FAMOTIDINE 20 MG TAB PO SCH (10:59)
[2020-06-23] MEDS ORDERED: POTASSIUM CHLORIDE ER 20 MEQ TAB PO ONE (11:00)
[2020-06-23] MEDS: METOPROLOL TARTRATE 25 MG TAB PO SCH ×2 (11:01→21:34)
[2020-06-23] MEDS: SODIUM BICARBONATE 650 MG TAB PO SCH ×3 (11:02→21:33)
--- NOTE | 2020-06-23 11:22 | Discharge Summary ---
Providers - Providers Date of Admission: 06/06/20 14:32 Date of discharge: 06/23/20 Attending physician: KYLE VILLEGAS 06/06/20 14:27 Consult to Physician [CONS] Stat Comment: Consulting Provider: GREG CARTWRIGHT Physician Instructions: Reason For Exam: Hyperkalemia, renal insufficiency 06/06/20 14:32 Consult to Physician [CONS] Routine Comment: Consulting Provider: ANA CRISTINA TEJEDA Physician Instructions: Reason For Exam: septic shock 06/07/20 09:36 Consult to Physician [CONS] Routine Comment: Consulting Provider: ANTHONY HERNANDEZ Physician Instructions: Reason For Exam: septic shock 06/07/20 09:39 Consult to Physician [CONS] Routine Comment: Consulting Provider: ANTHONY HERNANDEZ Physician Instructions: Reason For Exam: septic shock 06/08/20 08:47 Speech Therapy Evaluation and Treat [CONS] Urgent Reason For Exam: failed bedside swallow 06/08/20 12:38 Consult to Physician [CONS] Routine Comment: ousmane alfonso/david Consulting Provider: KENTRELL ROSA Physician Instructions: Reason For Exam: arrhythmia 06/09/20 11:14 Physical Therapy Evaluation and Treat [CONS] Routine Comment: Reason For Exam: evaluate and treat 06/09/20 21:06 Occupational Therapy Evaluate and Treat [CONS] Routine Comment: Reason For Exam: evaluate and treat 06/11/20 08:12 Consult to Physician [CONS] Routine Comment: Consulting Provider: LISA BARBOUR Physician Instructions: Reason For Exam: Colitis, likely ischemic 06/13/20 17:09 Physical Therapy Evaluation and Treat [CONS] Routine Comment: Eval for SNF Reason For Exam: Debility 06/15/20 09:00 Consult to Wound/ET Nurse [CONS] Routine Reason For Exam: woundre- eval for sacral area 06/20/20 19:15 Consult to Wound/ET Nurse [CONS] Routine Reason For Exam: Wound Re-evaluation Primary care physician: [employer] Hospitalization Condition: Stable Hospital course: 80-year-old male who is a resident of assisted living facility with vascular dementia, cerebral sclerosis, debility, diabetes mellitus who presents to the emergency department on 06/06 with complaints of lethargy and diminished cognition as per daughter he developed an episode of unresponsiveness while at breakfast at at his assisted living facility. Patient was found to have a urinary tract infection complicated by sepsis and septic shock, acute kidney injury, toxic metabolic encephalopathy as well as metabolic acidosis. Patient was hypotensive with systolic blood pressures in the 50s and was initiated on vasopressor support in the emergency department. Patient was admitted to the hospital service with consults to nephrology and [facility]. Hospital course 06/07: Patient remains on dopamine, vasopressin and Levophed. Nephrology has started the patient on sodium bicarbonate drip for metabolic acidosis. Infectious disease initiated vancomycin in addition to the cefepime and ordered a C. difficile. 06/08: Patient has gram-positive cocci bacteremia in 03/07 bottles which grew to be coag negative staph coccus and he has repeat blood cultures in progress. Urine culture has no growth to date and he is on IV vancomycin and cefepime. Yesterday we ordered a C. difficile PCR which is pending. Patient had a moment of tachycardia into the 130s and a stat EKG was obtained. Patient was given amiodarone bolus by [facility] and cardiology was consulted. Patient is hyperchloremic today however his metabolic acidosis and BUN/creatinine is slightly improved to 93/3.2 from 100/3.6 and his repeat lactic acid is 1.5. At the time my examinat ion patient was on Levophed at 6, vasopressin 0.03 and dopamine at 6. This morning patient failed his swallow eval and ST evaluation was ordered. Of note patient's echocardiogram shows reduced 15 to 20% with borderline left ventricular hypertrophy. 06/09: This morning his speech evaluation was completed and he has been cleared for mechanical soft diet with thin liquids. Patient complained of right-sided chest pain with radiation to shoulders and a stat EKG cardiac enzymes were ordered. Patient was recultured yesterday and those have no growth to date and his vancomycin was stopped. Infectious disease team recommends removal of Torres catheter when feasible and a CT abdomen/pelvis when stable. Patient has been cleared to transfer to the floor by cardiology and [facility]. 06/10/2020; patient is on IV cefepime for sepsis due to UTI day 3 out of 5. Vancomycin discontinued. Patient is complaining pleuritic chest pain. Patient was evaluated by cardiology for elevated troponin and episode of A. fib on admission. Cardiology discontinued amiodarone and put her on Lopressor. Cardiology recommend against anticoagulation because of patient's anemia. Hemoglobin this morning was 7.4 and anemia work-up is in progress. I did ordered CT abdomen and pelvis. PT OT evaluation. Patient has ISAAC and nephrology is following. Patient has rectal tube and liquid stool in the bag. I ordered stool for C. difficile. We will continue to monitor. 06/11/2020; patient is on cefepime day 4/5. CT abdomen and pelvis was done and significant for colitis, ischemic colitis is possibility given hypotension and elevated lactic acid level. I will consult GI. Patient has episode of A. fib for less than 24 hours, cardiology was consulted and recommend to be on Lopressor. No need for coagulation because of his anemia. Hemoglobin this morning is improved to 8. Anemia work-up was done, no iron deficiency anemia identified. ISAAC is improving. C. difficile was negative. 06/12/2020; continue cefepime per ID recommendation. CT abdomen and pelvis is significant for ischemic colitis likely due to septic shock, hypotension. Patient was seen by GI and recommend no further intervention at this time. Patient had episode of A. fib on admission for less than 24 hours and cardiology recommend to continue on Lopressor, no anticoagulation needed. Hemoglobin is improving. Patient came from assisted living facility. Patient need Covid test before discharge. ISAAC is improving. Creatinine this morning was 1.7. Nephrology is following. OT evaluated and recommend subacute rehab, PT evaluation is pending. 06/13: Replace K and Mag, continue to monitor renal fuction, Continue abx per ID, c.diff negative. patient still with Rectal tube and Torres but will re- evaluate for possible discontinuation. Questran started by GI. Will continue to monitor and replace electrolytes Discussed with nursing staff to change torres to condom catheter CM to try and ascertain patients functional status prior to hospitalization 06/14: Patient showing some clinical improvement Torres replaced due to urinary retention about 1000 cc of clear urine removed. Flomax started. PT OT consulted as patient is noted to have been ambulatory prior to this admission will likely need SNF placement. Diarrhea consistency is improving anticipate discharge in 24 to 48 hours once approval is obtained. Cardiology input is noted Lopressor 25 mg p.o. twice daily possible addition of SABIHA inhibitor or ARB when okay with nephrology as regular this is a is improving. At this time no AC for A. fib management due to anemia and the transient nature of the A. fib which was less than 24 hours. 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 Unknown etiology or chronicity of these diagnoses. No current clinical evidence of acutely decompensated HF. Per [facility] records, pt saw [facility] in 1998 and underwent LHC which did not show any significant findings. Continue with conservative cardiac management given pt's advanced age, dementia and multiple co-morbidities. Recommend pt follow up in our office with Dr. Rosa within 2 weeks of discharge ([phone]). 06/15: Continue supportive care. Will give a unit of PRBC and anticipate discharge today or tomorrow once approval from insurance company obtained. PATIENT will need urology follow up outpatient and also cardiology outpatient. Discussed with patient and Case management Continue PT OT 06/16: Still awaiting prior approval from the insurance company for patient to be discharged. Continue supportive care thrombocytopenia noted again antiplatelets are on hold. We will continue to monitor anticipate discharge once prior authorization is received from insurance [employer]. Continue rehab therapy while in house 06/17: Severe hyperkalemia noted in the setting of renal dysfunction. Will hold discharge. Also patient with intermittent fevers culture still on resolved. Bolus of fluid given will also give some Kayexalate to correct hyperkalemia. 06/18: Still with low-grade fever. White count still normal. Potassium mild hypokalemia. Will monitor closely renal function showing some improvement. If continues to improve we will anticipate discharge tomorrow. Still with elevated troponin but improved compared to prior. No respiratory compromise noted at this time diarrhea still present. Will discuss with ID if patient should empirically be treated with p.o. vancomycin despite negative C. difficile for with Flagyl. 06/19: Considering noted deformity on bilateral shoulders will obtain an x-ray just to ensure that there is no other acute event. I reviewed the chart and not has been done. Continue bicarb drip may need to decrease rate but will defer to piping designer. Awaiting labs from today. Anticipate discharge in a.m. we will also rule out bilateral upper extremity DVT due to the swelling. 06/20: Patient is a 80-year-old male who presented to the hospital for dialysis related facility with complaints of lethargy diminished cognition diagnosed with septic shock with diarrhea but with C. difficile negative during hospital stay was noted to be cardiac arrhythmia with tachycardia resolved with amiodarone. Was also noted to have ISAAC likely secondary to ATN showed some improvement and stabilized. Diarrhea persisted was managed with fecal management system with ID input noted. Fortunately the past few days has been having recurrent fever today noted to have a distended abdomen although nontender CT abdomen and pelvis with oral contrast was added following clearance from piping designer. 06/21. Patient seen and examined at bedside this morning. Ultrasound of the upper extremities showed no DVT. He has been advised to elevate right upper extremity to improve swelling. Potassium is very low today he will get potassium replacement. Plan for possible discharge tomorrow. Remained afebrile overnight 06/22. Having electrolyte abnormalities. Repleting. Will repeat levels this PM. On Antibiotics for colitis. Will dc when his electrolytes become stable. 06/23. Electrolytes are better. Remains on antibiotics. He will be discharged to skilled facility. He will need close monitoring of renal function, K, Mg, PO4 levels. Disposition: [id number]/[id number] SNF W [facility] CERT Final Discharge Diagnosis (Prints w/discharge instructions): Septic shock Time spent for discharge: 45 mins - Discharge Diagnoses (1) Acute kidney injury (ISAAC) with acute tubular necrosis (ATN) Status: Acute (2) Hyperkalemia Status: Acute (3) Metabolic acidosis Status: Acute (4) Septic shock Status: Acute Core Measure Documentation - Palliative Care Palliative Care/ Comfort Measures: Not Applicable - Core Measures Any of the following diagnoses?: none Exam - Physical Exam Narrative exam: VITAL SIGNS: Reviewed. GENERAL: Awake HEAD: No signs of head trauma. EYES: Pupils are equal. Extraocular motions intact. MOUTH: Oropharynx is normal. NECK: No adenopathy, no JVD. CHEST: Chest with diminished breath sounds bilaterally. No wheezes, rales, or rhonchi. CARDIAC: normal S1 and S2, without murmurs, gallops, or rubs. ABDOMEN: Soft, non tender and non distended. No rebound or guarding, and no masses palpated. Bowel Sounds normal. MUSCULOSKELETAL: No edema NEUROLOGIC EXAM: Alert and oriented x3. No focal neurologic deficits SKIN: No obvious lesions - Constitutional Vitals: Temp Pulse Resp BP Pulse Ox 99.1 F 82 17 128/77 97 06/23/20 07:31 06/23/20 11:01 06/23/20 08:15 06/23/20 11:01 06/23/20 08:15 Plan Diet: low salt, diabetic, low protein Additional Instructions: Continue close monitoring of renal function, potassium, Magnesium and phosphate levels. Complete antibiotics. Follow up with urology and cardiology. Follow up with GI. Continue rest of home medications Plan of Treatment: follow with urology for removal of torres Follow up with: ALEKSANDRA PAIZ MD [Staff Physician] - 7 Days ROWENA GARRETT MD [Staff Physician] - 7 Days [facility]IMARY [facility]ARE, [Primary Care Provider] - 3-5 Days KENTRELL ROSA MD [Staff Physician] - 14 Days Prescriptions: Cholestyramine (with Sugar) [Cholestyramine Packet] 4 gm PO BID #60 powd.pack metroNIDAZOLE [Flagyl] 500 mg PO Q8HR #9 tablet Tamsulosin [Flomax] 0.4 mg PO QDAY #30 cap Loperamide [Imodium] 2 mg PO Q2H PRN #10 capsule PRN Reason: Diarrhea levoFLOXacin [Levaquin] 750 mg PO QDAY #3 tablet Metoprolol [Lopressor TAB] 25 mg PO BID #60 tablet Famotidine [Pepcid] 20 mg PO QDAY #30 tablet
--- NOTE | 2020-06-23 16:05 | Progress Note ---
Assessment and Plan Cultures: Blood culture 06/06/2020 coagulase-negative staph 1 out of 4 Blood culture 06/08/2020 no growth today C. difficile PCR negative SARS-CoV-2 PCR negative Urine culture 06/07/2020 no growth Blood culture 06/20/2020 no growth so far Assessment: 80 years old male with history of dementia, CVA, debility, diabetes mellitus, secondary to few hours of unresponsiveness at breakfast at his assisted living facility: #Sepsis with septic shock: Resolved, remarkable improvement, off pressors; source UTI +/- colitis. Completed cefepime 5 days #Extensive colitis: remains with large foul smelling diarrhea. seen on CT ? ischemia. C diff neg #Coagulase-negative staph bacteremia: 1 out of 4 likely contaminant. #Acute hypoxemic respiratory failure: now on NC O2. CXR clear. SARS-CoV-2 PCR negative. #UTI: with hematuria, urine culture no growth #Acute encephalopathy: due to sepsis> CT no acute changes. Resolved. #ISAAC: ? from sepsis, a little worse now #RVR A. fib: On amiodarone, cardiology on board #Thrombocytopenia: Monitor platelets, likely due to sepsis, resolved. Recommendations: -Avoid laxative -Started Levaquin 750mg q48h and Flagyl 500mg q8h given abnormal CT. Complete 7 days. If improved can DC with PO of both. Narayan Rowley MD [facility] ([facility]) O: [phone] F: [phone] Subjective Date of service: 06/23/20 Principal diagnosis: shock Interval history: Afebrile, doing better. No acute issues. Objective - Exam Narrative Exam: General appearance: Alert in NAD on NC O2 Eyes: anicteric sclerae, moist conjunctivae; no lid-lag; PERRLA HENT: Normocephalic, Atraumatic; normal external ears, nares open, edentulous Neck: supple, tracheal midline, no JVD Lungs: Clear to auscultation bilaterally CV: RRR no murmur Abdomen: Soft, nontender, ventral hernia Extremities: no edema, no cyanosis Skin: No rash. Psych: no agitated Neuro: Alert, follows simple commands - Constitutional Vitals: Vital Signs Temp Pulse Resp BP Pulse Ox 98.8 F 76 18 130/76 96 06/23/20 15:52 06/23/20 15:52 06/23/20 15:52 06/23/20 15:52 06/23/20 15:52 Temperature -Last 24 Hours Temperature 98.8 F Temperature 98.8 F Temperature 99.1 F Temperature 98.0 F Temperature 98.0 F Temperature 98.2 F - Labs CBC & Chem 7: 06/20/20 06:00 06/23/20 05:00 Labs: Abnormal lab results 06/22/20 06/22/20 06/22/20 Range/Units 10:00 15:34 16:38 Sodium (137-145) mmol/L Potassium 2.7 L* (3.6-5.0) mmol/L Chloride 109.9 H (98-107) mmol/L Carbon Dioxide 21 L (22-30) mmol/L BUN 30 H (9-20) mg/dL Creatinine 1.4 H (0.8-1.3) mg/dL Glucose 71 L (75-100) mg/dL POC Glucose 63 L (70-105) mg/dL Calcium 7.1 L (8.4-10.2) mg/dL Phosphorus (2.5-4.5) mg/dL Magnesium 1.30 L (1.7-2.3) mg/dL Coronavirus (PCR) Positive A (Negative) 06/22/20 06/23/20 Range/Units 21:42 05:00 Sodium 135 L (137-145) mmol/L Potassium 3.4 L D (3.6-5.0) mmol/L Chloride (98-107) mmol/L Carbon Dioxide (22-30) mmol/L BUN 27 H (9-20) mg/dL Creatinine (0.8-1.3) mg/dL Glucose (75-100) mg/dL POC Glucose 130 H (70-105) mg/dL Calcium 7.1 L (8.4-10.2) mg/dL Phosphorus 2.20 L D (2.5-4.5) mg/dL Magnesium 1.60 L (1.7-2.3) mg/dL Coronavirus (PCR) (Negative)
[2020-06-23] MEDS: ACETAMINOPHEN 325 MG TAB PO PRN (21:31)
[2020-06-23] MEDS: PRAVASTATIN 20 MG TAB PO SCH (21:33)
[2020-06-24] MEDS: metroNIDAZOLE/NS 500 MG/100 ML 500 MG/100 ML BAG IV SCH ×3 (01:48→18:41)
[2020-06-24] MEDS: ACETAMINOPHEN 325 MG TAB PO PRN (06:09)
[2020-06-24] MEDS: CHOLESTYRAMINE (WITH SUGAR) 4 GM PACKET PO SCH ×2 (09:12→22:10)
[2020-06-24] MEDS: CALCIUM CARBONATE 500 MG TAB CHEW PO SCH (09:13)
[2020-06-24] MEDS: SODIUM BICARBONATE 650 MG TAB PO SCH ×3 (09:13→22:09)
[2020-06-24] MEDS: DICYCLOMINE 10 MG CAP PO SCH ×3 (09:13→22:10)
[2020-06-24] MEDS: CHOLECALCIFEROL (VIT D3) 1000 UNIT (25 mcg) TAB PO SCH (09:13)
[2020-06-24] MEDS: FAMOTIDINE 20 MG TAB PO SCH (09:13)
[2020-06-24] MEDS: METOPROLOL TARTRATE 25 MG TAB PO SCH ×2 (09:13→22:10)
[2020-06-24] MEDS: allopurinoL 100 MG TAB PO SCH (09:13)
[2020-06-24] MEDS: TAMSULOSIN 0.4 MG CAP PO SCH (09:14)
[2020-06-24 09:38] LABS: BUN/Creatinine Ratio 17; Blood Urea Nitrogen 20 mg/dL (9-20); Calcium 7.1 mg/dL (8.4-10.2); Hemolysis Index 13
--- NOTE | 2020-06-24 10:31 | Progress Note ---
Assessment and Plan Assessment and plan: Septic Shock-resolved. Completed antibiotics Metabolic encephalopathy. Resolved Coag negative Staphylococcus 1/4 bottles. Likely contaminant Urinary tract infection. Urine culture showed no growth. Extensive colitis: C. difficile negative. On Levaquin and Flagyl given abnormal CT abdomen. Antidiarrheals Acute hypoxic respiratory failure-improved. Continue oxygen supplementation. COVID-19 negative Acute kidney injury secondary to vasomotor nephropathy. Nephrology on board Atrial fibrillation with RVR-rate is well controlled. On amiodarone. Cardiology recommendations appreciated Recurrent fevers. Repeat blood cultures negative so far Electrolyte abnormalities-has hypomagnesemia and hypokalemia. Replete COVID-19 infection-stable. No need for dexamethasone he is not hypoxic. ID following Discharge planning. Plan to discharge to skilled facility when stable. - Patient Problems (1) Acute kidney injury (ISAAC) with acute tubular necrosis (ATN) Current Visit: Yes Status: Acute (2) Hyperkalemia Current Visit: Yes Status: Acute (3) Metabolic acidosis Current Visit: Yes Status: Acute (4) Septic shock Current Visit: Yes Status: Acute History Interval history: 80-year-old male who is a resident of assisted living facility with vascular dementia, cerebral sclerosis, debility, diabetes mellitus who presents to the e mergency department on 06/06 with complaints of lethargy and diminished cognition as per daughter he developed an episode of unresponsiveness while at breakfast at at his assisted living facility. Patient was found to have a urinary tract infection complicated by sepsis and septic shock, acute kidney injury, toxic metabolic encephalopathy as well as metabolic acidosis. Patient was hypotensive with systolic blood pressures in the 50s and was initiated on vasopressor support in the emergency department. Patient was admitted to the hospital service with consults to nephrology and [facility]. Hospital course 06/07: Patient remains on dopamine, vasopressin and Levophed. Nephrology has started the patient on sodium bicarbonate drip for metabolic acidosis. Infectious disease initiated vancomycin in addition to the cefepime and ordered a C. difficile. 06/08: Patient has gram-positive cocci bacteremia in 1/4 bottles which grew to be coag negative staph coccus and he has repeat blood cultures in progress. Urine culture has no growth to date and he is on IV vancomycin and cefepime. Yesterday we ordered a C. difficile PCR which is pending. Patient had a moment of tachycardia into the 130s and a stat EKG was obtained. Patient was given amiodarone bolus by [facility] and cardiology was consulted. Patient is hyperchloremic today however his metabolic acidosis and BUN/creatinine is slightly improved to 93/3.2 from 100/3.6 and his repeat lactic acid is 1.5. At the time my examination patient was on Levophed at 6, vasopressin 0.03 and dopamine at 6. This morning patient failed his swallow eval and ST evaluation was ordered. Of note patient's echocardiogram shows reduced 15 to 20% with borderline left ventricular hypertrophy. 06/09: This morning his speech evaluation was completed and he has been cleared for mechanical soft diet with thin liquids. Patient complained of right-sided chest pain with radiation to shoulders and a stat EKG cardiac enzymes were ordered. Patient was recultured yesterday and those have no growth to date and his vancomycin was stopped. Infectious disease team recommends removal of Torres catheter when feasible and a CT abdomen/pelvis when stable. Patient has been cleared to transfer to the floor by cardiology and [facility]. 06/10/2020; patient is on IV cefepime for sepsis due to UTI day 3 out of 5. Vancomycin discontinued. Patient is complaining pleuritic chest pain. Patient was evaluated by cardiology for elevated troponin and episode of A. fib on admission. Cardiology discontinued amiodarone and put her on Lopressor. Cardiology recommend against anticoagulation because of patient's anemia. Hemoglobin this morning was 7.4 and anemia work-up is in progress. I did ordered CT abdomen and pelvis. PT OT evaluation. Patient has ISAAC and nephrology is following. Patient has rectal tube and liquid stool in the bag. I ordered stool for C. difficile. We will continue to monitor. 06/11/2020; patient is on cefepime day 4/5. CT abdomen and pelvis was done and significant for colitis, ischemic colitis is possibility given hypotension and elevated lactic acid level. I will consult GI. Patient has episode of A. fib for less than 24 hours, cardiology was consulted and recommend to be on Lopressor. No need for coagulation because of his anemia. Hemoglobin this morning is improved to 8. Anemia work-up was done, no iron deficiency anemia identified. ISAAC is improving. C. difficile was negative. 06/12/2020; continue cefepime per ID recommendation. CT abdomen and pelvis is significant for ischemic colitis likely due to septic shock, hypotension. Patient was seen by GI and recommend no further intervention at this time. Patient had episode of A. fib on admission for less than 24 hours and cardiology recommend to continue on Lopressor, no anticoagulation needed. Hemoglobin is improving. Patient came from assisted living facility. Patient need Covid test before discharge. ISAAC is improving. Creatinine this morning was 1.7. Nephrolo gy is following. OT evaluated and recommend subacute rehab, PT evaluation is pending. 06/13: Replace K and Mag, continue to monitor renal fuction, Continue abx per ID, c.diff negative. patient still with Rectal tube and Torres but will re- evaluate for possible discontinuation. Questran started by GI. Will continue to monitor and replace electrolytes Discussed with nursing staff to change torres to condom catheter CM to try and ascertain patients functional status prior to hospitalization 06/14: Patient showing some clinical improvement Torres replaced due to urinary retention about 1000 cc of clear urine removed. Flomax started. PT OT consulted as patient is noted to have been ambulatory prior to this admission will likely need SNF placement. Diarrhea consistency is improving anticipate discharge in 24 to 48 hours once approval is obtained. Cardiology input is noted Lopressor 25 mg p.o. twice daily possible addition of SABIHA inhibitor or ARB when okay with nephrology as regular this is a is improving. At this time no AC for A. fib management due to anemia and the transient nature of the A. fib which was less than 24 hours. 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 Unknown etiology or chronicity of these diagnoses. No current clinical evidence of acutely decompensated HF. Per [facility] records, pt saw [facility] in 1998 and underwent LHC which did not show any significant findings. Continue with conservative cardiac management given pt's advanced age, dementia and multiple co-morbidities. Recommend pt follow up in our office with Dr. Rosa within 2 weeks of discharge ([phone]). 06/15: Continue supportive care. Will give a unit of PRBC and anticipate discharge today or tomorrow once approval from insurance company obtained. PATIENT will need urology follow up outpatient and also cardiology outpatient. Discussed with patient and Case management Continue PT OT 06/16: Still awaiting prior approval from the insurance company for patient to be discharged. Continue supportive care thrombocytopenia noted again antiplatelets are on hold. We will continue to monitor anticipate discharge once prior authorization is received from insurance [employer]. Continue rehab therapy while in house 06/17: Severe hyperkalemia noted in the setting of renal dysfunction. Will hold discharge. Also patient with intermittent fevers culture still on resolved. Bolus of fluid given will also give some Kayexalate to correct hyperkalemia. 06/18: Still with low-grade fever. White count still normal. Potassium mild hypokalemia. Will monitor closely renal function showing some improvement. If continues to improve we will anticipate discharge tomorrow. Still with elevated troponin but improved compared to prior. No respiratory compromise noted at this time diarrhea still present. Will discuss with ID if patient should empirically be treated with p.o. vancomycin despite negative C. difficile for with Flagyl. 06/19: Considering noted deformity on bilateral shoulders will obtain an x-ray just to ensure that there is no other acute event. I reviewed the chart and not has been done. Continue bicarb drip may need to decrease rate but will defer to government program manager. Awaiting labs from today. Anticipate discharge in a.m. we will also rule out bilateral upper extremity DVT due to the swelling. 06/20: Patient is a 80-year-old male who presented to the hospital for dialysis related facility with complaints of lethargy diminished cognition diagnosed with septic shock with diarrhea but with C. difficile negative during hospital stay was noted to be cardiac arrhythmia with tachycardia resolved with amiodarone. Was also noted to have ISAAC likely secondary to ATN showed some improvement and stabilized. Diarrhea persisted was managed with fecal management system with ID input noted. Fortunately the past few days has been having recurrent fever today noted to have a distended abdomen although nontender CT abdomen and pelvis with oral contrast was added following clearance from government program manager. 06/21. Patient seen and examined at bedside this morning. Ultrasound of the upper extremities showed no DVT. He has been advised to elevate right upper extremity to improve swelling. Potassium is very low today he will get potassium replacement. Plan for possible discharge tomorrow. Remained afebrile overnight 06/22. Having electrolyte abnormalities. Repleting. Will repeat levels this PM. On Antibiotics for colitis. Will dc when his electrolytes become stable. 06/23. Plan for discharge today as electrolytes have improved. COVID-19 test was positive so he would not go to [facility] as per director of casework department. Plan to search for facilities that will accept him Hospitalist Physical - Physical exam Narrative exam: VITAL SIGNS: Reviewed. GENERAL: Awake HEAD: No signs of head trauma. EYES: Pupils are equal. Extraocular motions intact. MOUTH: Oropharynx is normal. NECK: No adenopathy, no JVD. CHEST: Chest with diminished breath sounds bilaterally. No wheezes, rales, or rhonchi. CARDIAC: normal S1 and S2, without murmurs, gallops, or rubs. ABDOMEN: Soft, non tender and non distended. No rebound or guarding, and no masses palpated. Bowel Sounds normal. MUSCULOSKELETAL: No edema NEUROLOGIC EXAM: Alert and oriented x3. No focal neurologic deficits SKIN: No obvious lesions - Constitutional Vitals: Temp Pulse Resp BP Pulse Ox 98.4 F 73 18 134/60 98 06/24/20 06:07 06/24/20 09:13 06/24/20 06:07 06/24/20 09:13 06/24/20 06:07 HEART Score - HEART Score Troponin: Troponin T 0.141 ng/mL (0.00-0.029) H* 06/18/20 10:39 Results - Labs CBC & Chem 7: 06/20/20 06:00 06/24/20 08:29 Labs: Laboratory Last Values WBC 4.9 K/mm3 (4.5-11.0) 06/20/20 06:00 RBC 2.48 M/mm3 (3.65-5.03) L 06/20/20 06:00 Hgb 8.1 gm/dl (11.8-15.2) L 06/20/20 06:00 Hct 23.9 % (35.5-45.6) L 06/20/20 06:00 MCV 97 fl (84-94) H 06/20/20 06:00 MCH 33 pg (28-32) H 06/20/20 06:00 MCHC 34 % (32-34) 06/20/20 06:00 RDW 14.0 % (13.2-15.2) 06/20/20 06:00 Plt Count 279 K/mm3 (140-440) 06/20/20 06:00 Lymph % (Auto) 6.8 % (13.4-35.0) L 06/13/20 06:13 [place] % (Auto) 5.0 % (0.0-7.3) 06/13/20 06:13 Eos % (Auto) 1.7 % (0.0-4.3) 06/13/20 06:13 Baso % (Auto) 0.2 % (0.0-1.8) 06/13/20 06:13 Lymph # (Auto) 0.9 K/mm3 (1.2-5.4) L 06/13/20 06:13 [place] # (Auto) 0.7 K/mm3 (0.0-0.8) 06/13/20 06:13 Eos # (Auto) 0.2 K/mm3 (0.0-0.4) 06/13/20 06:13 Baso # (Auto) 0.0 K/mm3 (0.0-0.1) 06/13/20 06:13 Add Manual Diff Complete 06/16/20 12:50 Total Counted 100 06/16/20 12:50 Seg Neutrophils % 86.3 % (40.0-70.0) H 06/13/20 06:13 Seg Neuts % (Manual) 65.0 % (40.0-70.0) 06/16/20 12:50 Band Neutrophils % 20.0 % 06/16/20 12:50 Lymphocytes % (Manual) 6.0 % (13.4-35.0) L 06/16/20 12:50 Reactive Lymphs % (Man) 1.0 % 06/12/20 05:24 Monocytes % (Manual) 9.0 % (0.0-7.3) H 06/16/20 12:50 Eosinophils % (Manual) 2.0 % (0.0-4.3) 06/12/20 05:24 Nucleated RBC % Not Reportable 06/16/20 12:50 Seg Neutrophils # 11.9 K/mm3 (1.8-7.7) H 06/13/20 06:13 Seg Neutrophils # Man 7.2 K/mm3 (1.8-7.7) 06/16/20 12:50 Band Neutrophils # 2.2 K/mm3 06/16/20 12:50 Lymphocytes # (Manual) 0.7 K/mm3 (1.2-5.4) L 06/16/20 12:50 Abs React Lymphs (Man) 0.0 K/mm3 06/16/20 12:50 Monocytes # (Manual) 1.0 K/mm3 (0.0-0.8) H 06/16/20 12:50 Eosinophils # (Manual) 0.0 K/mm3 (0.0-0.4) 06/16/20 12:50 Basophils # (Manual) 0.0 K/mm3 (0.0-0.1) 06/16/20 12:50 Metamyelocytes # 0.0 K/mm3 06/16/20 12:50 Myelocytes # 0.0 K/mm3 06/16/20 12:50 Promyelocytes # 0.0 K/mm3 06/16/20 12:50 Blast Cells # 0.0 K/mm3 06/16/20 12:50 WBC Morphology Not Reportable 06/16/20 12:50 Hypersegmented Neuts Not Reportable 06/16/20 12:50 Hyposegmented Neuts Not Reportable 06/16/20 12:50 Hypogranular Neuts Not Reportable 06/16/20 12:50 Smudge Cells Not Reportable 06/16/20 12:50 Toxic Granulation Not Reportable 06/16/20 12:50 Toxic Vacuolation Not Reportable 06/16/20 12:50 Dohle Bodies Not Reportable 06/16/20 12:50 Pelger-Huet Anomaly Not Reportable 06/16/20 12:50 Denys Rods Not Reportable 06/16/20 12:50 Platelet Estimate Consistent w auto 06/16/20 12:50 Clumped Platelets Rare 06/16/20 12:50 Plt Clumps, EDTA Not Reportable 06/16/20 12:50 Large Platelets Rare 06/16/20 12:50 Giant Platelets Not Reportable 06/16/20 12:50 Platelet Satelliting Not Reportable 06/16/20 12:50 Plt Morphology Comment Not Reportable 06/16/20 12:50 RBC Morphology Normal 06/16/20 12:50 Dimorphic RBCs Not Reportable 06/16/20 12:50 Polychromasia Not Reportable 06/16/20 12:50 Hypochromasia Not Reportable 06/16/20 12:50 Poikilocytosis Not Reportable 06/16/20 12:50 Anisocytosis Not Reportable 06/16/20 12:50 Microcytosis Not Reportable 06/16/20 12:50 Macrocytosis Not Reportable 06/16/20 12:50 Spherocytes Not Reportable 06/16/20 12:50 Pappenheimer Bodies Not Reportable 06/16/20 12:50 Sickle Cells Not Reportable 06/16/20 12:50 Target Cells Not Reportable 06/16/20 12:50 Tear Drop Cells Not Reportable 06/16/20 12:50 Ovalocytes Not Reportable 06/16/20 12:50 Helmet Cells Not Reportable 06/16/20 12:50 Brenner-Tornillo Bodies Not Reportable 06/16/20 12:50 Stafford Rings Not Reportable 06/16/20 12:50 [place] Cells Not Reportable 06/16/20 12:50 Bite Cells Not Reportable 06/16/20 12:50 Crenated Cell Not Reportable 06/16/20 12:50 Elliptocytes Not Reportable 06/16/20 12:50 Acanthocytes (Spur) Not Reportable 06/16/20 12:50 Rouleaux Not Reportable 06/16/20 12:50 Hemoglobin C Crystals Not Reportable 06/16/20 12:50 Schistocytes Not Reportable 06/16/20 12:50 Malaria parasites Not Reportable 06/16/20 12:50 Chance Bodies Not Reportable 06/16/20 12:50 Hem Pathologist Commnt No 06/16/20 12:50 PT 16.3 Sec. (12.2-14.9) H 06/06/20 10:19 INR 1.33 (0.87-1.13) H 06/06/20 10:19 APTT 31.6 Sec. (24.2-36.6) 06/06/20 10:19 ABG pH 7.329 pH Units (7.350-7.450) L 06/06/20 11:18 ABG pCO2 27.8 mm Hg 06/06/20 11:18 ABG pO2 258.1 mm Hg (80.0-90.0) H 06/06/20 11:18 ABG HCO3 14.3 mmol/L (20.0-26.0) L 06/06/20 11:18 ABG O2 Saturation 99.4 % (95.0-99.0) H 06/06/20 11:18 ABG O2 Content 13.2 (0.0-44) 06/06/20 11:18 ABG Base Excess -10.5 mmol/L (-2.0-3.0) L 06/06/20 11:18 ABG Hemoglobin 9.1 gm/dl (14.0-18.0) L 06/06/20 11:18 ABG Carboxyhemoglobin 1.3 % (0.0-5.0) 06/06/20 11:18 ABG Methemoglobin Not Reportable 06/06/20 11:18 VBG pH 7.438 (7.320-7.420) H 06/06/20 10:19 Oxyhemoglobin 98.2 % (95.0-99.0) 06/06/20 11:18 FiO2 21 % 06/06/20 11:18 Sodium 138 mmol/L (137-145) 06/24/20 08:29 Potassium 4.2 mmol/L (3.6-5.0) D 06/24/20 08:29 Chloride 110.3 mmol/L (98-107) H 06/24/20 08:29 Carbon Dioxide 21 mmol/L (22-30) L 06/24/20 08:29 Anion Gap 11 mmol/L 06/24/20 08:29 BUN 20 mg/dL (9-20) 06/24/20 08:29 Creatinine 1.2 mg/dL (0.8-1.3) 06/24/20 08:29 Estimated GFR > 60 ml/min 06/24/20 08:29 BUN/Creatinine Ratio 17 % 06/24/20 08:29 Glucose 81 mg/dL (75-100) 06/24/20 08:29 POC Glucose 97 mg/dL (70-105) 06/23/20 21:20 Lactic Acid 1.50 mmol/L (0.7-2.0) 06/08/20 05:15 Calcium 7.1 mg/dL (8.4-10.2) L 06/24/20 08:29 Phosphorus 2.50 mg/dL (2.5-4.5) 06/24/20 08:29 Magnesium 1.80 mg/dL (1.7-2.3) 06/24/20 08:29 Iron 54 ug/dL (49-181) 06/10/20 10:44 TIBC 157 mcg/dL (250-450) L 06/10/20 10:44 Ferritin 569.5 ng/mL (30.0-300.0) H 06/10/20 10:44 Total Bilirubin 0.20 mg/dL (0.1-1.2) 06/14/20 05:23 AST 19 units/L (5-40) 06/14/20 05:23 ALT 20 units/L (7-56) 06/14/20 05:23 Alkaline Phosphatase 55 units/L (35-129) 06/14/20 05:23 Ammonia 64.0 umol/L (25-60) H 06/06/20 10:19 Total Creatine Kinase 1212 units/L (55-170) H 06/09/20 12:57 CK-MB (CK-2) 12.1 ng/mL (0.0-4.0) H 06/09/20 12:57 CK-MB (CK-2) Rel Index 0.9 (0-4) 06/09/20 12:57 Troponin T 0.141 ng/mL (0.00-0.029) H* 06/18/20 10:39 Total Protein 4.9 g/dL (6.3-8.2) L 06/14/20 05:23 Albumin 2.4 g/dL (3.9-5) L 06/14/20 05:23 Albumin/Globulin Ratio 1.0 % 06/14/20 05:23 Triglycerides 103 mg/dL (2-149) 06/06/20 10:19 Cholesterol 84 mg/dL (50-199) 06/06/20 10:19 LDL Cholesterol Direct 28 mg/dL (50-130) L 06/06/20 10:19 HDL Cholesterol 44 mg/dL (40-59) 06/06/20 10:19 Cholesterol/HDL Ratio 1.90 % 06/06/20 10:19 Vitamin B12 1170 pg/mL (211-911) H 06/10/20 14:49 RBC Folic Acid 829 ng/mL (>280) 06/10/20 10:44 TSH 4.440 mlU/mL (0.270-4.200) H 06/06/20 10:19 Free T4 1.55 ng/dL (0.76-1.46) H 06/06/20 10:19 PTH Intact 271.9 pg/mL (15-65) H 06/08/20 05:15 Urine Color Yellow (Yellow) 06/06/20 14:02 Urine Turbidity Cloudy (Clear) 06/06/20 14:02 Urine pH 6.0 (5.0-7.0) 06/06/20 14:02 Ur Specific [place] 1.013 (1.003-1.030) 06/06/20 14:02 Urine Protein 100 mg/dl mg/dL (Negative) 06/06/20 14:02 Urine Glucose (UA) Neg mg/dL (Negative) 06/06/20 14:02 Urine Ketones Neg mg/dL (Negative) 06/06/20 14:02 Urine Blood Sm (Negative) 06/06/20 14:02 Urine Nitrite Neg (Negative) 06/06/20 14:02 Urine Bilirubin Neg (Negative) 06/06/20 14:02 Urine Urobilinogen < 2.0 mg/dL (<2.0) 06/06/20 14:02 Ur Leukocyte Esterase Lg (Negative) 06/06/20 14:02 Urine WBC (Auto) > 182.0 /HPF (0.0-6.0) H 06/06/20 14:02 Urine RBC (Auto) 55.0 /HPF (0.0-6.0) 06/06/20 14:02 U Epithel Cells (Auto) 1.0 /HPF (0-13.0) 06/06/20 14:02 Urine WBC Clumps 2+ /HPF 06/06/20 14:02 Urine Creatinine 57.0 mg/dL (0.1-20.0) H 06/06/20 21:05 Urine Sodium 85 mmol/L 06/06/20 21:05 Random Vancomycin 9.8 ug/mL (0-40.0) 06/09/20 04:30 Urine Opiates Screen Presumptive negative 06/06/20 14:02 Urine Methadone Screen Presumptive negative 06/06/20 14:02 Ur Barbiturates Screen Presumptive negative 06/06/20 14:02 Ur Phencyclidine Scrn Presumptive negative 06/06/20 14:02 Ur Amphetamines Screen Presumptive negative 06/06/20 14:02 U Benzodiazepines Scrn Presumptive negative 06/06/20 14:02 Urine Cocaine Screen Presumptive negative 06/06/20 14:02 U Marijuana (THC) Screen Presumptive negative 06/06/20 14:02 Drugs of Abuse Note Disclamer 06/06/20 14:02 Plasma/Serum Alcohol < 0.01 % (0-0.07) 06/06/20 10:19 C. difficile Tox (PCR) Negative (Negative) 06/08/20 Unknown Coronavirus (PCR) Positive (Negative) A 06/22/20 10:00 Blood Type O POSITIVE 06/15/20 11:00 Antibody Screen Negative 06/15/20 11:00 Crossmatch See Detail 06/15/20 11:00 Microbiology: Microbiology 06/20/20 15:43 Peripheral/Venous Blood Culture - Preliminary NO GROWTH AFTER 72 HOURS 06/20/20 15:43 Peripheral/Venous Blood Culture - Preliminary NO GROWTH AFTER 72 HOURS Torres/IV: Voiding Method Indwelling Catheter Active Medications - Current Medications Current Medications: Generic Name Dose Route Start Last Admin Trade Name Freq PRN Reason Stop Dose Admin Acetaminophen 650 mg 06/06/20 15:00 06/24/20 06:09 Acetaminophen 325 Mg Tab PO 650 mg Q6H PRN Administration Pain, Mild (1-3) Albuterol 2.5 mg 06/06/20 15:00 Albuterol 2.5 Mg/3 Ml Nebu IH Q3HRT PRN Shortness Of Breath Allopurinol 100 mg 06/07/20 10:00 06/24/20 09:13 Allopurinol 100 Mg Tab PO 100 mg QDAY YELENA Administration Calcium Carbonate/Glycine 500 mg 06/07/20 10:00 06/24/20 09:13 Calcium Carbonate 500 Mg Tab Chew PO 500 mg QDAY YELENA Administration Cholecalciferol 2,000 unit 06/07/20 10:00 06/24/20 09:13 Cholecalciferol (Vit D3) 1000 Unit (25 Mcg) Tab PO 2,000 unit QDAY YELENA Administration Cholestyramine Resin 4 gm 06/12/20 22:00 06/24/20 09:12 Cholestyramine (With Sugar) 4 Gm Packet PO 4 gm BID YELENA Administration Dicyclomine HCl 10 mg 06/06/20 20:00 06/24/20 09:13 Dicyclomine 10 Mg Cap PO 10 mg TID YELENA Administration Famotidine 20 mg 06/13/20 10:00 06/24/20 09:13 Famotidine 20 Mg Tab PO 20 mg QDAY YELENA Administration Hydrophilic Ointment 1 applic 06/24/20 11:00 Lip Therapy Vaseline TP DIRECT PRN Dry Lips Levofloxacin/Dextrose 750 mg in 150 mls @ 100 mls/hr 06/20/20 16:00 06/22/20 16:07 Levaquin 750mg/150ml IV 06/26/20 15:59 100 mls/hr Q48H YELENA Administration Protocol Metronidazole 500 mg in 100 mls @ 100 mls/hr 06/20/20 18:00 06/24/20 09:12 Flagyl 500 Mg/100 Ml IV 06/27/20 10:59 100 mls/hr Q8H YELENA Administration Protocol Loperamide HCl 2 mg 06/22/20 12:30 06/23/20 21:31 Loperamide 2 Mg Cap PO 2 mg Q2H PRN Administration Diarrhea Magnesium Citrate 300 ml 06/06/20 16:20 Magnesium Citrate 300 Ml Oral Liqd PO QDAY PRN Constipation Metoprolol Tartrate 25 mg 06/09/20 22:00 06/24/20 09:13 Metoprolol Tartrate 25 Mg Tab PO 25 mg BID YELENA Administration Pravastatin Sodium 10 mg 06/06/20 22:00 06/23/20 21:33 Pravastatin 20 Mg Tab PO 10 mg QHS YELENA Administration Sodium Bicarbonate 650 mg 06/16/20 20:00 06/24/20 09:13 Sodium Bicarbonate 650 Mg Tab PO 650 mg TID YELENA Administration Sodium Chloride 10 ml 06/06/20 15:00 06/24/20 09:14 Sodium Chloride 0.9% 10 Ml Flush Syringe IV 10 ml BID YELENA Administration Sodium Chloride 10 ml 06/06/20 15:00 Sodium Chloride 0.9% 10 Ml Flush Syringe IV PRN PRN LINE FLUSH Tamsulosin HCl 0.4 mg 06/14/20 11:00 06/24/20 09:14 Tamsulosin 0.4 Mg Cap PO 0.4 mg QDAY YELENA Administration Nutrition/Malnutrition Assess - Dietary Evaluation Nutrition/Malnutrition Findings: Nutrition Notes Start: 06/08/20 11:43 Freq: Status: Active Protocol: Document 06/23/20 14:37 CW (Rec: 06/23/20 14:46 CW [id number]) Nutrition Notes Initial or Follow up Reassessment Current Diagnosis Acute Kidney Injury,Diabetes, Hypertension Other Pertinent Diagnosis AMS, Dementia, UTI, metabolic encephalopathy, ?s/p CVA? Current Diet Mechanical soft diet + ONS BID Labs/Tests Na 135 K 3.4 BUN 27 Phos 2.2 Pertinent Medications Potassium phosphate 85 mmol Imodium MgS04 K dur Height 5 ft 8 in Weight 87.2 kg [place] Body Weight (kg) 70.00 BMI 29.2 Weight Status Appropriate Subjective/Other Information F/U for intakes adn ONS tolerance. Pt continues to eat very little. Recommend appetite stimulant at this time. Pt pleasantly confused. Pt requesting apple juice. D/t low tolerance with nepro will change to ensure clear apple to increase intake Percent of energy/protein needs met: 31%/47% Burn Absent Trauma Absent Difficulty In Swallowing Skin Integrity/Comment Stage 1 pressure ulcer Current % PO Negligible Minimum of two criteria No Fluid Accumulation Mild (non-severe) #2 Nutrition Diagnosis Increased nutrient needs ( specify in comment below) Diagnosis Progress(for reassessment Continues documentation) #1 Nutrition Diagnosis Inadequate oral intake Diagnosis Progress(for reassessment Continues documentation) Is patient on ventilator? No Is Patient Ambulatory and/or Out of Bed Yes REE-([facility]-ambulatory/OOB) [ [id number] [id number]] Calculation Used for Recommendations [facility] Additional Notes protein needs: 62 - 153g (0.8 - 1.2g/kgBW for ISAAC) fluid needs: 1 ml/kcal Nutrition Intervention Change Diet Order: Continue Mechanical Soft Diet and ONS Add Supplement/Snack (indicate name/kcal Ensure Clear TID /protein ) Provides kCal: 720 Provides Protein (gm) 24 Goal #1 Meet at least 75% of kcal and proteins via PO and ONS Goal #2 wound healing Anticipated Discharge Needs: Mechanical Soft diet + ONS PRN Follow-Up By: 06/28/20 Additional Comments F/U intakes and ONS tolerance
[2020-06-24] MEDS ORDERED: LIP THERAPY VASELINE TP PRN (11:00)
--- NOTE | 2020-06-24 11:09 | Progress Note ---
Assessment and Plan Cultures: Blood culture 06/06/2020 coagulase-negative staph 1 out of 4 Blood culture 06/08/2020 no growth today C. difficile PCR negative SARS-CoV-2 PCR negative Urine culture 06/07/2020 no growth Blood culture 06/20/2020 no growth so far Assessment: 80 years old male with history of dementia, CVA, debility, diabetes mellitus, secondary to few hours of unresponsiveness at breakfast at his assisted living facility: #Sepsis with septic shock: Resolved, remarkable improvement, off pressors; source UTI +/- colitis. Completed cefepime 5 days #Extensive colitis: remains with large foul smelling diarrhea. seen on CT ? ischemia. C diff neg #Coagulase-negative staph bacteremia: 1 out of 4 likely contaminant. #Acute hypoxemic respiratory failure: now on NC O2. CXR clear. SARS-CoV-2 PCR negative. #UTI: with hematuria, urine culture no growth #Acute encephalopathy: due to sepsis> CT no acute changes. Resolved. #ISAAC: ? from sepsis, a little worse now #RVR A. fib: On amiodarone, cardiology on board #Thrombocytopenia: Monitor platelets, likely due to sepsis, resolved. Recommendations: -Avoid laxative -Started Levaquin 750mg q48h and Flagyl 500mg q8h given abnormal CT. Complete 7 days. If improved can DC with PO of both. ID will sign off for now. Please call questions. Narayan Rowley MD [facility] ([facility] O: [phone] F: [phone] Subjective Date of service: 06/24/20 Principal diagnosis: shock Interval history: Afebrile, no new issues. Cultures are remain negative. Pending discharge to a skilled facility. Objective - Exam Narrative Exam: General appearance: Alert in NAD on NC O2 Eyes: anicteric sclerae, moist conjunctivae; no lid-lag; PERRLA HENT: Normocephalic, Atraumatic; normal external ears, nares open, edentulous Neck: supple, tracheal midline, no JVD Lungs: Clear to auscultation bilaterally CV: RRR no murmur Abdomen: Soft, nontender, ventral hernia Extremities: no edema, no cyanosis Skin: No rash. Psych: no agitated Neuro: Alert, follows simple commands - Constitutional Vitals: Vital Signs Temp Pulse Resp BP Pulse Ox 98.4 F 73 18 134/60 98 06/24/20 06:07 06/24/20 09:13 06/24/20 06:07 06/24/20 09:13 06/24/20 06:07 Temperature -Last 24 Hours Temperature 98.4 F Temperature 99.2 F Temperature 99.9 F Temperature 98.8 F Temperature 98.8 F Temperature 98.6 F - Labs CBC & Chem 7: 06/20/20 06:00 06/24/20 08:29 Labs: Abnormal lab results 06/22/20 06/23/20 06/24/20 Range/Units 10:00 11:27 08:29 Chloride 110.3 H (98-107) mmol/L Carbon Dioxide 21 L (22-30) mmol/L POC Glucose 68 L (70-105) mg/dL Calcium 7.1 L (8.4-10.2) mg/dL Coronavirus (PCR) Positive A (Negative)
[2020-06-24] MEDS: oxyCODONE /ACETAMINOPHEN 5-325MG TAB PO PRN (13:21)
--- NOTE | 2020-06-24 14:25 | Magnetic Resonance Report ---
MR brain wo con INDICATION / CLINICAL INFORMATION: 80 years Male; Left arm weakness. TECHNIQUE: Multiplanar, multisequence MR images of the brain were obtained. COMPARISON: The study is compared to the previous CT head of 06/06/2020. FINDINGS: BRAIN / INTRACRANIAL CONTENTS: There are mild paravertebral white matter changes most consistent with microvascular angiopathy. Fusion imaging reveals no evidence of acute infarction. There appear to be old lacunar infarcts involving the gangliocapsular regions bilaterally. There is mild cerebral atrophy with associated mild prominence of the ventricular system. No extra-ax ial fluid collections or significant mass effect is identified. CRANIOCERVICAL JUNCTION: No significant abnormality. VASCULAR FLOW-VOIDS: No significant abnormality. ORBITS: No significant abnormality of visualized orbits. SINUSES / MASTOIDS: This mild mucosal thickening involving maxillary and sphenoid sinuses. ADDITIONAL FINDINGS: None. IMPRESSION: 1. There is mild microvascular angiopathy and cerebral atrophy without CT evidence of acute infarctio n. 2. There is mild maxillary and sphenoid sinus inflammatory disease. Signer Name: Arturo Jensen MD Signed: 06/24/2020 2:20 PM Workstation Name: [id number]
--- NOTE | 2020-06-24 18:18 | Progress Note ---
Assessment and Plan 1. Acute kidney injury: Vasomotor ISAAC in the setting of shock. Renal US negative for hydro. Monitor renal function. Creatinine level is better. Avoid nephrotoxic agents. Meds dosage based on GFR. 2. FEN: Hypernatremia, improved. Hypokalemia, replete K as needed, monitor. Metabolic acidosis, improved. Monitor volume status and lytes. 3. Sepsis with shock: Currently off pressors. Monitor BP. 4. UTI: S/p Abx. 5. Acute hypoxemic respiratory failure: CXR clear. COVID test negative. NC O2 as needed. 6. Colitis: C.diff negative. 7. Metabolic encephalopathy: Monitor. 8. H/o Dementia: Supportive care. 9. H/o HTN: Monitor BP. 10. Anemia, POA: Monitor. Subjective: Patient was seen and examined at the bedside. No new complaint. Objective: General appearance: well-developed, appears stated age, not in distress HEENT: ATNC Neck: trachea midline Respiratory: ctab Heart: regular, S1S2, no murmur Gastrointestinal: soft, normoactive bowel sounds, not tender Integumentary: sacral wound noted Ext: no edema Neurologic: alert, able to move extremities, confusion noted Ext: no edema : Hair catheter Subjective Date of service: 06/24/20 Principal diagnosis: shock Objective - Vital Signs Vital signs: Vital Signs - 12hr 06/24/20 09:13 Pulse Rate 73 Blood Pressure 134/60 - Lab 06/20/20 06:00 06/24/20 08:29 Most recent lab results ABG pH 7.329 pH Units (7.350-7.450) L 06/06/20 11:18 ABG pCO2 27.8 mm Hg 06/06/20 11:18 ABG pO2 258.1 mm Hg (80.0-90.0) H 06/06/20 11:18 ABG HCO3 14.3 mmol/L (20.0-26.0) L 06/06/20 11:18 ABG O2 Saturation 99.4 % (95.0-99.0) H 06/06/20 11:18 Calcium 7.1 mg/dL (8.4-10.2) L 06/24/20 08:29 Phosphorus 2.50 mg/dL (2.5-4.5) 06/24/20 08:29 Magnesium 1.80 mg/dL (1.7-2.3) 06/24/20 08:29 Urine Creatinine 57.0 mg/dL (0.1-20.0) H 06/06/20 21:05 Urine Sodium 85 mmol/L 06/06/20 21:05 Medications & Allergies - Medications Allergies/Adverse Reactions: Allergies No Known Allergies Allergy (Verified 06/06/20 15:21) Home Medications: Home Medications Medication Instructions Recorded Confirmed Last Taken Type Amlodipine Besylate [Norvasc] 5 mg PO QDAY 06/06/20 06/06/20 Unknown History Calcium Carb/Magnesium Hydrox 500 mg PO QDAY 06/06/20 06/06/20 Unknown History [Antacid 1000-200 mg Tab Chew] Cholecalciferol (Vitamin D3) 2,000 unit PO QDAY 06/06/20 06/06/20 Unknown History [Vitamin D3 2,000 UNIT CAP] Dicyclomine [Bentyl] 10 mg PO TID 06/06/20 06/06/20 Unknown History Insulin Lispro [Insulin Lispro 10 unit SQ TID 06/06/20 06/06/20 Unknown History Kwikpen U-100] Melatonin [Melatonin 3MG TAB] 6 mg PO QHS 06/06/20 06/06/20 Unknown History Pantoprazole [Protonix TAB] 40 mg PO QDAY 06/06/20 06/06/20 Unknown History Pioglitazone HCl [Actos] 30 mg PO QDAY 06/06/20 06/06/20 Unknown History Pravastatin Sodium [Pravastatin] 10 mg PO QHS 06/06/20 06/06/20 Unknown History allopurinoL [Zyloprim] 100 mg PO QDAY 06/06/20 06/06/20 Unknown History Famotidine [Pepcid] 20 mg PO QDAY #30 tablet 06/17/20 Unknown Rx Cholestyramine (with Sugar) 4 gm PO BID #60 powd.pack 06/23/20 Unknown Rx [Cholestyramine Packet] Loperamide [Imodium] 2 mg PO Q2H PRN #10 capsule 06/23/20 Unknown Rx Metoprolol [Lopressor TAB] 25 mg PO BID #60 tablet 06/23/20 Unknown Rx Tamsulosin [Flomax] 0.4 mg PO QDAY #30 cap 06/23/20 Unknown Rx levoFLOXacin [Levaquin] 750 mg PO QDAY #3 tablet 06/23/20 Unknown Rx metroNIDAZOLE [Flagyl] 500 mg PO Q8HR #9 tablet 06/23/20 Unknown Rx Active Medications: Generic Name Dose Route Start Last Admin Trade Name Freq PRN Reason Stop Dose Admin Acetaminophen 650 mg 06/06/20 15:00 06/24/20 06:09 Acetaminophen 325 Mg Tab PO 650 mg Q6H PRN Administration Pain, Mild (1-3) Albuterol 2.5 mg 06/06/20 15:00 Albuterol 2.5 Mg/3 Ml Nebu IH Q3HRT PRN Shortness Of Breath Allopurinol 100 mg 06/07/20 10:00 06/24/20 09:13 Allopurinol 100 Mg Tab PO 100 mg QDAY YELENA Administration Calcium Carbonate/Glycine 500 mg 06/07/20 10:00 06/24/20 09:13 Calcium Carbonate 500 Mg Tab Chew PO 500 mg QDAY YELENA Administration Cholecalciferol 2,000 unit 06/07/20 10:00 06/24/20 09:13 Cholecalciferol (Vit D3) 1000 Unit (25 Mcg) Tab PO 2,000 unit QDAY YELENA Administration Cholestyramine Resin 4 gm 06/12/20 22:00 06/24/20 09:12 Cholestyramine (With Sugar) 4 Gm Packet PO 4 gm BID YELENA Administration Dicyclomine HCl 10 mg 06/06/20 20:00 06/24/20 13:21 Dicyclomine 10 Mg Cap PO 10 mg TID YELENA Administration Famotidine 20 mg 06/13/20 10:00 06/24/20 09:13 Famotidine 20 Mg Tab PO 20 mg QDAY YELENA Administration Hydrophilic Ointment 1 applic 06/24/20 11:00 Lip Therapy Vaseline TP DIRECT PRN Dry Lips Levofloxacin/Dextrose 750 mg in 150 mls @ 100 mls/hr 06/20/20 16:00 06/24/20 16:49 Levaquin 750mg/150ml IV 06/26/20 15:59 100 mls/hr Q48H YELENA Administration Protocol Metronidazole 500 mg in 100 mls @ 100 mls/hr 06/20/20 18:00 06/24/20 09:12 Flagyl 500 Mg/100 Ml IV 06/27/20 10:59 100 mls/hr Q8H YELENA Administration Protocol Loperamide HCl 2 mg 06/22/20 12:30 06/23/20 21:31 Loperamide 2 Mg Cap PO 2 mg Q2H PRN Administration Diarrhea Magnesium Citrate 300 ml 06/06/20 16:20 Magnesium Citrate 300 Ml Oral Liqd PO QDAY PRN Constipation Metoprolol Tartrate 25 mg 06/09/20 22:00 06/24/20 09:13 Metoprolol Tartrate 25 Mg Tab PO 25 mg BID YELENA Administration Oxycodone/Acetaminophen 1 tab 06/24/20 12:30 06/24/20 13:21 Oxycodone /Acetaminophen 5-325mg Tab PO 1 tab Q4H PRN Administration Pain, Moderate (4-6) Pravastatin Sodium 10 mg 06/06/20 22:00 06/23/20 21:33 Pravastatin 20 Mg Tab PO 10 mg QHS YELENA Administration Sodium Bicarbonate 650 mg 06/16/20 20:00 06/24/20 13:21 Sodium Bicarbonate 650 Mg Tab PO 650 mg TID YELENA Administration Sodium Chloride 10 ml 06/06/20 15:00 06/24/20 09:14 Sodium Chloride 0.9% 10 Ml Flush Syringe IV 10 ml BID YELENA Administration Sodium Chloride 10 ml 06/06/20 15:00 Sodium Chloride 0.9% 10 Ml Flush Syringe IV PRN PRN LINE FLUSH Tamsulosin HCl 0.4 mg 06/14/20 11:00 06/24/20 09:14 Tamsulosin 0.4 Mg Cap PO 0.4 mg QDAY YELENA Administration
[2020-06-24] MEDS: PRAVASTATIN 20 MG TAB PO SCH (22:09)
[2020-06-25] MEDS: metroNIDAZOLE/NS 500 MG/100 ML 500 MG/100 ML BAG IV SCH ×3 (02:52→17:23)
[2020-06-25] MEDS: DICYCLOMINE 10 MG CAP PO SCH ×3 (07:46→22:02)
[2020-06-25] MEDS: oxyCODONE /ACETAMINOPHEN 5-325MG TAB PO PRN ×2 (07:46→14:54)
[2020-06-25] MEDS: SODIUM BICARBONATE 650 MG TAB PO SCH ×3 (07:47→22:03)
[2020-06-25 09:11] LABS: BUN/Creatinine Ratio 17; Blood Urea Nitrogen 20 mg/dL (9-20); Calcium 7.2 mg/dL (8.4-10.2); Hemolysis Index 119
[2020-06-25] MEDS: METOPROLOL TARTRATE 25 MG TAB PO SCH ×2 (09:33→22:03)
[2020-06-25] MEDS: CHOLESTYRAMINE (WITH SUGAR) 4 GM PACKET PO SCH ×2 (09:33→22:03)
[2020-06-25] MEDS: FAMOTIDINE 20 MG TAB PO SCH (09:33)
[2020-06-25] MEDS: CHOLECALCIFEROL (VIT D3) 1000 UNIT (25 mcg) TAB PO SCH (09:34)
[2020-06-25] MEDS: allopurinoL 100 MG TAB PO SCH (09:34)
[2020-06-25] MEDS: CALCIUM CARBONATE 500 MG TAB CHEW PO SCH (09:34)
[2020-06-25] MEDS: TAMSULOSIN 0.4 MG CAP PO SCH (09:34)
--- NOTE | 2020-06-25 10:17 | Progress Note ---
Assessment and Plan Assessment and plan: Septic Shock-resolved. Completed antibiotics Metabolic encephalopathy. Resolved Coag negative Staphylococcus 1/4 bottles. Likely contaminant Urinary tract infection. Urine culture showed no growth. Extensive colitis: C. difficile negative. On Levaquin and Flagyl given abnormal CT abdomen. Antidiarrheals Acute hypoxic respiratory failure-improved. Continue oxygen supplementation. Acute kidney injury secondary to vasomotor nephropathy. Nephrology on board Atrial fibrillation with RVR-rate is well controlled. On amiodarone. Cardiology recommendations appreciated Recurrent fevers. Repeat blood cultures negative so far Electrolyte abnormalities-Resolved COVID-19 infection-stable. No need for dexamethasone he is not hypoxic. ID following Sacral ulcer-regular turning. Zinc oxide barrier cream PRN Discharge planning. Plan to discharge to skilled facility when accepted - Patient Problems (1) Acute kidney injury (ISAAC) with acute tubular necrosis (ATN) Current Visit: Yes Status: Acute (2) Hyperkalemia Current Visit: Yes Status: Acute (3) Metabolic acidosis Current Visit: Yes Status: Acute (4) Septic shock Current Visit: Yes Status: Acute History Interval history: 80-year-old male who is a resident of assisted living facility with vascular dementia, cerebral sclerosis, debility, diabetes mellitus who presents to the emergency department on 06/06 with complaints of lethargy and diminished cognition as per daughter he developed an episode of unresponsiveness while at breakfast at at his assisted living facility. Patient was found to have a urinary tract infection complicated by sepsis and septic shock, acute kidney injury, toxic metabolic encephalopathy as well as metabolic acidosis. Patient was hypotensive with systolic blood pressures in the 50s and was initiated on vasopressor support in the emergency department. Patient was admitted to the hospital service with consults to nephrology and [facility]. Hospital course 06/07: Patient remains on dopamine, vasopressin and Levophed. Nephrology has started the patient on sodium bicarbonate drip for metabolic acidosis. Infectious disease initiated vancomycin in addition to the cefepime and ordered a C. difficile. 06/08: Patient has gram-positive cocci bacteremia in 1/4 bottles which grew to be coag negative staph coccus and he has repeat blood cultures in progress. Urine culture has no growth to date and he is on IV vancomycin and cefepime. Yesterday we ordered a C. difficile PCR which is pending. Patient had a moment of tachycardia into the 130s and a stat EKG was obtained. Patient was given amiodarone bolus by [facility] and cardiology was consulted. Patient is hyperchloremic today however his metabolic acidosis and BUN/creatinine is slightly improved to 93/3.2 from 100/3.6 and his repeat lactic acid is 1.5. At the time my examination patient was on Levophed at 6, vasopressin 0.03 and dopamine at 6. This morning patient failed his swallow eval and ST evaluation was ordered. Of note patient's echocardiogram shows reduced 15 to 20% with borderline left ventricular hypertrophy. 06/09: This morning his speech evaluation was completed and he has been cleared for mechanical soft diet with thin liquids. Patient complained of right-sided chest pain with radiation to shoulders and a stat EKG cardiac enzymes were ordered. Patient was recultured yesterday and those have no growth to date and his vancomycin was stopped. Infectious disease team recommends removal of Torres catheter when feasible and a CT abdomen/pelvis when stable. Patient has been cleared to transfer to the floor by cardiology and [facility]. 06/10/2020; patient is on IV cefepime for sepsis due to UTI day 3 out of 5. Vancomycin discontinued. Patient is complaining pleuritic chest pain. Patient was evaluated by cardiology for elevated troponin and episode of A. fib on admi ssion. Cardiology discontinued amiodarone and put her on Lopressor. Cardiology recommend against anticoagulation because of patient's anemia. Hemoglobin this morning was 7.4 and anemia work-up is in progress. I did ordered CT abdomen and pelvis. PT OT evaluation. Patient has ISAAC and nephrology is following. Patient has rectal tube and liquid stool in the bag. I ordered stool for C. difficile. We will continue to monitor. 06/11/2020; patient is on cefepime day 4/5. CT abdomen and pelvis was done and significant for colitis, ischemic colitis is possibility given hypotension and elevated lactic acid level. I will consult GI. Patient has episode of A. fib for less than 24 hours, cardiology was consulted and recommend to be on Lopressor. No need for coagulation because of his anemia. Hemoglobin this morning is improved to 8. Anemia work-up was done, no iron deficiency anemia id entified. ISAAC is improving. C. difficile was negative. 06/12/2020; continue cefepime per ID recommendation. CT abdomen and pelvis is significant for ischemic colitis likely due to septic shock, hypotension. Patient was seen by GI and recommend no further intervention at this time. Patient had episode of A. fib on admission for less than 24 hours and cardiology recommend to continue on Lopressor, no anticoagulation needed. Hemoglobin is improving. Patient came from assisted living facility. Patient need Covid test before discharge. ISAAC is improving. Creatinine this morning was 1.7. Ne phrology is following. OT evaluated and recommend subacute rehab, PT evaluation is pending. 06/13: Replace K and Mag, continue to monitor renal fuction, Continue abx per ID, c.diff negative. patient still with Rectal tube and Torres but will re- evaluate for possible discontinuation. Questran started by GI. Will continue to monitor and replace electrolytes Discussed with nursing staff to change torres to condom catheter CM to try and ascertain patients functional status prior to hospitalization 06/14: Patient showing some clinical improvement Torres replaced due to urinary retention about 1000 cc of clear urine removed. Flomax started. PT OT consulted as patient is noted to have been ambulatory prior to this admission will likely need SNF placement. Diarrhea consistency is improving anticipate discharge in 24 to 48 hours once approval is obtained. Cardiology input is noted Lopressor 25 mg p.o. twice daily possible addition of SABIHA inhibitor or ARB when okay with nephrology as regular this is a is improving. At this time no AC for A. fib management due to anemia and the transient nature of the A. fib which was less than 24 hours. 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 Unknown etiology or chronicity of these diagnoses. No current clinical evidence of acutely decompensated HF. Per [facility] records, pt saw [facility] in 1998 and underwent LHC which did not show any significant findings. Continue with conservative cardiac management given pt's advanced age, dementia and multiple co-morbidities. Recommend pt follow up in our office with Dr. Rosa within 2 weeks of discharg e ([phone]). 06/15: Continue supportive care. Will give a unit of PRBC and anticipate discharg e today or tomorrow once approval from insurance company obtained. PATIENT will need urology follow up outpatient and also cardiology outpatient. Discussed with patient and Case management Continue PT OT 06/16: Still awaiting prior approval from the insurance company for patient to be discharged. Continue supportive care thrombocytopenia noted again antiplatelets are on hold. We will continue to monitor anticipate discharge once prior authorization is received from insurance [employer]. Continue rehab therapy while in house 06/17: Severe hyperkalemia noted in the setting of renal dysfunction. Will hold discharge. Also patient with intermittent fevers culture still on resolved. Bolus of fluid given will also give some Kayexalate to correct hyperkalemia. 06/18: Still with low-grade fever. White count still normal. Potassium mild hypokalemia. Will monitor closely renal function showing some improvement. If continues to improve we will anticipate discharge tomorrow. Still with elevated troponin but improved compared to prior. No respiratory compromise noted at this time diarrhea still present. Will discuss with ID if patient should empirically be treated with p.o. vancomycin despite negative C. difficile for with Flagyl. 06/19: Considering noted deformity on bilateral shoulders will obtain an x-ray just to ensure that there is no other acute event. I reviewed the chart and not has been done. Continue bicarb drip may need to decrease rate but will defer to blower room attendant. Awaiting labs from today. Anticipate discharge in a.m. we will also rule out bilateral upper extremity DVT due to the swelling. 06/20: Patient is a 80-year-old male who presented to the hospital for dialysis related facility with complaints of lethargy diminished cognition diagnosed with septic shock with diarrhea but with C. difficile negative during hospital stay was noted to be cardiac arrhythmia with tachycardia resolved with amiodarone. Was also noted to have ISAAC likely secondary to ATN showed some improvement and stabilized. Diarrhea persisted was managed with fecal management system with ID input noted. Fortunately the past few days has been having recurrent fever today noted to have a distended abdomen although nontender CT abdomen and pelvis with oral contrast was added following clearance from blower room attendant. 06/21. Patient seen and examined at bedside this morning. Ultrasound of the upper extremities showed no DVT. He has been advised to elevate right upper extremity to improve swelling. Potassium is very low today he will get potassium replacement. Plan for possible discharge tomorrow. Remained afebrile overnight 06/22. Having electrolyte abnormalities. Repleting. Will repeat levels this PM. On Antibiotics for colitis. Will dc when his electrolytes become stable. 06/23. Plan for discharge today as electrolytes have improved. COVID-19 test was positive so he would not go to [place] as per rehabilitation caseworker. Plan to search for facilities that will accept him 06/24. Electrolytes have normalized. Awaiting placement 06/25. Complains of pain around the buttock area. Resumed home dose oxycodone yesterday. Hospitalist Physical - Physical exam Narrative exam: VITAL SIGNS: Reviewed. GENERAL: Awake HEAD: No signs of head trauma. EYES: Pupils are equal. Extraocular motions intact. MOUTH: Oropharynx is normal. NECK: No adenopathy, no JVD. CHEST: Chest with diminished breath sounds bilaterally. No wheezes, rales, or rhonchi. CARDIAC: normal S1 and S2, without murmurs, gallops, or rubs. ABDOMEN: Soft, non tender and non distended. No rebound or guarding, and no masses palpated. Bowel Sounds normal. MUSCULOSKELETAL: No edema NEUROLOGIC EXAM: Alert and oriented x3. No focal neurologic deficits SKIN: No obvious lesions - Constitutional Vitals: Temp Pulse Resp BP Pulse Ox 98.6 F 69 18 126/62 99 06/25/20 03:59 06/25/20 09:33 06/25/20 07:46 06/25/20 09:33 06/25/20 03:59 HEART Score - HEART Score Troponin: Troponin T 0.141 ng/mL (0.00-0.029) H* 06/18/20 10:39 Results - Labs CBC & Chem 7: 06/20/20 06:00 06/25/20 08:35 Labs: Laboratory Last Values WBC 4.9 K/mm3 (4.5-11.0) 06/20/20 06:00 RBC 2.48 M/mm3 (3.65-5.03) L 06/20/20 06:00 Hgb 8.1 gm/dl (11.8-15.2) L 06/20/20 06:00 Hct 23.9 % (35.5-45.6) L 06/20/20 06:00 MCV 97 fl (84-94) H 06/20/20 06:00 MCH 33 pg (28-32) H 06/20/20 06:00 MCHC 34 % (32-34) 06/20/20 06:00 RDW 14.0 % (13.2-15.2) 06/20/20 06:00 Plt Count 279 K/mm3 (140-440) 06/20/20 06:00 Lymph % (Auto) 6.8 % (13.4-35.0) L 06/13/20 06:13 Grainger % (Auto) 5.0 % (0.0-7.3) 06/13/20 06:13 Eos % (Auto) 1.7 % (0.0-4.3) 06/13/20 06:13 Baso % (Auto) 0.2 % (0.0-1.8) 06/13/20 06:13 Lymph # (Auto) 0.9 K/mm3 (1.2-5.4) L 06/13/20 06:13 Grainger # (Auto) 0.7 K/mm3 (0.0-0.8) 06/13/20 06:13 Eos # (Auto) 0.2 K/mm3 (0.0-0.4) 06/13/20 06:13 Baso # (Auto) 0.0 K/mm3 (0.0-0.1) 06/13/20 06:13 Add Manual Diff Complete 06/16/20 12:50 Total Counted 100 06/16/20 12:50 Seg Neutrophils % 86.3 % (40.0-70.0) H 06/13/20 06:13 Seg Neuts % (Manual) 65.0 % (40.0-70.0) 06/16/20 12:50 Band Neutrophils % 20.0 % 06/16/20 12:50 Lymphocytes % (Manual) 6.0 % (13.4-35.0) L 06/16/20 12:50 Reactive Lymphs % (Man) 1.0 % 06/12/20 05:24 Monocytes % (Manual) 9.0 % (0.0-7.3) H 06/16/20 12:50 Eosinophils % (Manual) 2.0 % (0.0-4.3) 06/12/20 05:24 Nucleated RBC % Not Reportable 06/16/20 12:50 Seg Neutrophils # 11.9 K/mm3 (1.8-7.7) H 06/13/20 06:13 Seg Neutrophils # Man 7.2 K/mm3 (1.8-7.7) 06/16/20 12:50 Band Neutrophils # 2.2 K/mm3 06/16/20 12:50 Lymphocytes # (Manual) 0.7 K/mm3 (1.2-5.4) L 06/16/20 12:50 Abs React Lymphs (Man) 0.0 K/mm3 06/16/20 12:50 Monocytes # (Manual) 1.0 K/mm3 (0.0-0.8) H 06/16/20 12:50 Eosinophils # (Manual) 0.0 K/mm3 (0.0-0.4) 06/16/20 12:50 Basophils # (Manual) 0.0 K/mm3 (0.0-0.1) 06/16/20 12:50 Metamyelocytes # 0.0 K/mm3 06/16/20 12:50 Myelocytes # 0.0 K/mm3 06/16/20 12:50 Promyelocytes # 0.0 K/mm3 06/16/20 12:50 Blast Cells # 0.0 K/mm3 06/16/20 12:50 WBC Morphology Not Reportable 06/16/20 12:50 Hypersegmented Neuts Not Reportable 06/16/20 12:50 Hyposegmented Neuts Not Reportable 06/16/20 12:50 Hypogranular Neuts Not Reportable 06/16/20 12:50 Smudge Cells Not Reportable 06/16/20 12:50 Toxic Granulation Not Reportable 06/16/20 12:50 Toxic Vacuolation Not Reportable 06/16/20 12:50 Dohle Bodies Not Reportable 06/16/20 12:50 Pelger-Huet Anomaly Not Reportable 06/16/20 12:50 Denys Rods Not Reportable 06/16/20 12:50 Platelet Estimate Consistent w auto 06/16/20 12:50 Clumped Platelets Rare 06/16/20 12:50 Plt Clumps, EDTA Not Reportable 06/16/20 12:50 Large Platelets Rare 06/16/20 12:50 Giant Platelets Not Reportable 06/16/20 12:50 Platelet Satelliting Not Reportable 06/16/20 12:50 Plt Morphology Comment Not Reportable 06/16/20 12:50 RBC Morphology Normal 06/16/20 12:50 Dimorphic RBCs Not Reportable 06/16/20 12:50 Polychromasia Not Reportable 06/16/20 12:50 Hypochromasia Not Reportable 06/16/20 12:50 Poikilocytosis Not Reportable 06/16/20 12:50 Anisocytosis Not Reportable 06/16/20 12:50 Microcytosis Not Reportable 06/16/20 12:50 Macrocytosis Not Reportable 06/16/20 12:50 Spherocytes Not Reportable 06/16/20 12:50 Pappenheimer Bodies Not Reportable 06/16/20 12:50 Sickle Cells Not Reportable 06/16/20 12:50 Target Cells Not Reportable 06/16/20 12:50 Tear Drop Cells Not Reportable 06/16/20 12:50 Ovalocytes Not Reportable 06/16/20 12:50 Helmet Cells Not Reportable 06/16/20 12:50 [place] Bodies Not Reportable 06/16/20 12:50 [place] Rings Not Reportable 06/16/20 12:50 Bascom Cells Not Reportable 06/16/20 12:50 Bite Cells Not Reportable 06/16/20 12:50 Crenated Cell Not Reportable 06/16/20 12:50 Elliptocytes Not Reportable 06/16/20 12:50 Acanthocytes (Spur) Not Reportable 06/16/20 12:50 Rouleaux Not Reportable 06/16/20 12:50 Hemoglobin C Crystals Not Reportable 06/16/20 12:50 Schistocytes Not Reportable 06/16/20 12:50 Malaria parasites Not Reportable 06/16/20 12:50 Chance Bodies Not Reportable 06/16/20 12:50 Hem Pathologist Commnt No 06/16/20 12:50 PT 16.3 Sec. (12.2-14.9) H 06/06/20 10:19 INR 1.33 (0.87-1.13) H 06/06/20 10:19 APTT 31.6 Sec. (24.2-36.6) 06/06/20 10:19 ABG pH 7.329 pH Units (7.350-7.450) L 06/06/20 11:18 ABG pCO2 27.8 mm Hg 06/06/20 11:18 ABG pO2 258.1 mm Hg (80.0-90.0) H 06/06/20 11:18 ABG HCO3 14.3 mmol/L (20.0-26.0) L 06/06/20 11:18 ABG O2 Saturation 99.4 % (95.0-99.0) H 06/06/20 11:18 ABG O2 Content 13.2 (0.0-44) 06/06/20 11:18 ABG Base Excess -10.5 mmol/L (-2.0-3.0) L 06/06/20 11:18 ABG Hemoglobin 9.1 gm/dl (14.0-18.0) L 06/06/20 11:18 ABG Carboxyhemoglobin 1.3 % (0.0-5.0) 06/06/20 11:18 ABG Methemoglobin Not Reportable 06/06/20 11:18 VBG pH 7.438 (7.320-7.420) H 06/06/20 10:19 Oxyhemoglobin 98.2 % (95.0-99.0) 06/06/20 11:18 FiO2 21 % 06/06/20 11:18 Sodium 135 mmol/L (137-145) L 06/25/20 08:35 Potassium 4.7 mmol/L (3.6-5.0) 06/25/20 08:35 Chloride 109.3 mmol/L (98-107) H 06/25/20 08:35 Carbon Dioxide 20 mmol/L (22-30) L 06/25/20 08:35 Anion Gap 10 mmol/L 06/25/20 08:35 BUN 20 mg/dL (9-20) 06/25/20 08:35 Creatinine 1.2 mg/dL (0.8-1.3) 06/25/20 08:35 Estimated GFR > 60 ml/min 06/25/20 08:35 BUN/Creatinine Ratio 17 % 06/25/20 08:35 Glucose 64 mg/dL (75-100) L 06/25/20 08:35 POC Glucose 97 mg/dL (70-105) 06/23/20 21:20 Lactic Acid 1.50 mmol/L (0.7-2.0) 06/08/20 05:15 Calcium 7.2 mg/dL (8.4-10.2) L 06/25/20 08:35 Phosphorus 2.50 mg/dL (2.5-4.5) 06/24/20 08:29 Magnesium 1.80 mg/dL (1.7-2.3) 06/24/20 08:29 Iron 54 ug/dL (49-181) 06/10/20 10:44 TIBC 157 mcg/dL (250-450) L 06/10/20 10:44 Ferritin 569.5 ng/mL (30.0-300.0) H 06/10/20 10:44 Total Bilirubin 0.20 mg/dL (0.1-1.2) 06/14/20 05:23 AST 19 units/L (5-40) 06/14/20 05:23 ALT 20 units/L (7-56) 06/14/20 05:23 Alkaline Phosphatase 55 units/L (35-129) 06/14/20 05:23 Ammonia 64.0 umol/L (25-60) H 06/06/20 10:19 Total Creatine Kinase 1212 units/L (55-170) H 06/09/20 12:57 CK-MB (CK-2) 12.1 ng/mL (0.0-4.0) H 06/09/20 12:57 CK-MB (CK-2) Rel Index 0.9 (0-4) 06/09/20 12:57 Troponin T 0.141 ng/mL (0.00-0.029) H* 06/18/20 10:39 Total Protein 4.9 g/dL (6.3-8.2) L 06/14/20 05:23 Albumin 2.4 g/dL (3.9-5) L 06/14/20 05:23 Albumin/Globulin Ratio 1.0 % 06/14/20 05:23 Triglycerides 103 mg/dL (2-149) 06/06/20 10:19 Cholesterol 84 mg/dL (50-199) 06/06/20 10:19 LDL Cholesterol Direct 28 mg/dL (50-130) L 06/06/20 10:19 HDL Cholesterol 44 mg/dL (40-59) 06/06/20 10:19 Cholesterol/HDL Ratio 1.90 % 06/06/20 10:19 Vitamin B12 1170 pg/mL (211-911) H 06/10/20 14:49 RBC Folic Acid 829 ng/mL (>280) 06/10/20 10:44 TSH 4.440 mlU/mL (0.270-4.200) H 06/06/20 10:19 Free T4 1.55 ng/dL (0.76-1.46) H 06/06/20 10:19 PTH Intact 271.9 pg/mL (15-65) H 06/08/20 05:15 Urine Color Yellow (Yellow) 06/06/20 14:02 Urine Turbidity Cloudy (Clear) 06/06/20 14:02 Urine pH 6.0 (5.0-7.0) 06/06/20 14:02 Ur Specific [place] 1.013 (1.003-1.030) 06/06/20 14:02 Urine Protein 100 mg/dl mg/dL (Negative) 06/06/20 14:02 Urine Glucose (UA) Neg mg/dL (Negative) 06/06/20 14:02 Urine Ketones Neg mg/dL (Negative) 06/06/20 14:02 Urine Blood Sm (Negative) 06/06/20 14:02 Urine Nitrite Neg (Negative) 06/06/20 14:02 Urine Bilirubin Neg (Negative) 06/06/20 14:02 Urine Urobilinogen < 2.0 mg/dL (<2.0) 06/06/20 14:02 Ur Leukocyte Esterase Lg (Negative) 06/06/20 14:02 Urine WBC (Auto) > 182.0 /HPF (0.0-6.0) H 06/06/20 14:02 Urine RBC (Auto) 55.0 /HPF (0.0-6.0) 06/06/20 14:02 U Epithel Cells (Auto) 1.0 /HPF (0-13.0) 06/06/20 14:02 Urine WBC Clumps 2+ /HPF 06/06/20 14:02 Urine Creatinine 57.0 mg/dL (0.1-20.0) H 06/06/20 21:05 Urine Sodium 85 mmol/L 06/06/20 21:05 Random Vancomycin 9.8 ug/mL (0-40.0) 06/09/20 04:30 Urine Opiates Screen Presumptive negative 06/06/20 14:02 Urine Methadone Screen Presumptive negative 06/06/20 14:02 Ur Barbiturates Screen Presumptive negative 06/06/20 14:02 Ur Phencyclidine Scrn Presumptive negative 06/06/20 14:02 Ur Amphetamines Screen Presumptive negative 06/06/20 14:02 U Benzodiazepines Scrn Presumptive negative 06/06/20 14:02 Urine Cocaine Screen Presumptive negative 06/06/20 14:02 U Marijuana (THC) Screen Presumptive negative 06/06/20 14:02 Drugs of Abuse Note Disclamer 06/06/20 14:02 Plasma/Serum Alcohol < 0.01 % (0-0.07) 06/06/20 10:19 C. difficile Tox (PCR) Negative (Negative) 06/08/20 Unknown Coronavirus (PCR) Positive (Negative) A 06/22/20 10:00 Blood Type O POSITIVE 06/15/20 11:00 Antibody Screen Negative 06/15/20 11:00 Crossmatch See Detail 06/15/20 11:00 Microbiology: Microbiology 06/20/20 15:43 Peripheral/Venous Blood Culture - Preliminary NO GROWTH AFTER 4 DAYS 06/20/20 15:43 Peripheral/Venous Blood Culture - Preliminary NO GROWTH AFTER 4 DAYS Torres/IV: Voiding Method Indwelling Catheter Active Medications - Current Medications Current Medications: Generic Name Dose Route Start Last Admin Trade Name Freq PRN Reason Stop Dose Admin Acetaminophen 650 mg 06/06/20 15:00 06/24/20 06:09 Acetaminophen 325 Mg Tab PO 650 mg Q6H PRN Administration Pain, Mild (1-3) Albuterol 2.5 mg 06/06/20 15:00 Albuterol 2.5 Mg/3 Ml Nebu IH Q3HRT PRN Shortness Of Breath Allopurinol 100 mg 06/07/20 10:00 06/25/20 09:34 Allopurinol 100 Mg Tab PO 100 mg QDAY YELENA Administration Calcium Carbonate/Glycine 500 mg 06/07/20 10:00 06/25/20 09:34 Calcium Carbonate 500 Mg Tab Chew PO 500 mg QDAY YELENA Administration Cholecalciferol 2,000 unit 06/07/20 10:00 06/25/20 09:34 Cholecalciferol (Vit D3) 1000 Unit (25 Mcg) Tab PO 2,000 unit QDAY YELENA Administration Cholestyramine Resin 4 gm 06/12/20 22:00 06/25/20 09:33 Cholestyramine (With Sugar) 4 Gm Packet PO 4 gm BID YELENA Administration Dicyclomine HCl 10 mg 06/06/20 20:00 06/25/20 07:46 Dicyclomine 10 Mg Cap PO 10 mg TID YELENA Administration Famotidine 20 mg 06/13/20 10:00 06/25/20 09:33 Famotidine 20 Mg Tab PO 20 mg QDAY YELENA Administration Hydrophilic Ointment 1 applic 06/24/20 11:00 06/25/20 07:47 Lip Therapy Vaseline TP 1 applic DIRECT PRN Administration Dry Lips Levofloxacin/Dextrose 750 mg in 150 mls @ 100 mls/hr 06/20/20 16:00 06/24/20 16:49 Levaquin 750mg/150ml IV 06/26/20 15:59 100 mls/hr Q48H YELENA Administration Protocol Metronidazole 500 mg in 100 mls @ 100 mls/hr 06/20/20 18:00 06/25/20 09:34 Flagyl 500 Mg/100 Ml IV 06/27/20 10:59 100 mls/hr Q8H YELENA Administration Protocol Loperamide HCl 2 mg 06/22/20 12:30 06/23/20 21:31 Loperamide 2 Mg Cap PO 2 mg Q2H PRN Administration Diarrhea Magnesium Citrate 300 ml 06/06/20 16:20 Magnesium Citrate 300 Ml Oral Liqd PO QDAY PRN Constipation Metoprolol Tartrate 25 mg 06/09/20 22:00 06/25/20 09:33 Metoprolol Tartrate 25 Mg Tab PO 25 mg BID YELENA Administration Oxycodone/Acetaminophen 1 tab 06/24/20 12:30 06/25/20 07:46 Oxycodone /Acetaminophen 5-325mg Tab PO 1 tab Q4H PRN Administration Pain, Moderate (4-6) Pravastatin Sodium 10 mg 06/06/20 22:00 06/24/20 22:09 Pravastatin 20 Mg Tab PO 10 mg QHS YELENA Administration Sodium Bicarbonate 650 mg 06/16/20 20:00 06/25/20 07:47 Sodium Bicarbonate 650 Mg Tab PO 650 mg TID YELENA Administration Sodium Chloride 10 ml 06/06/20 15:00 06/25/20 09:34 Sodium Chloride 0.9% 10 Ml Flush Syringe IV 10 ml BID YELENA Administration Sodium Chloride 10 ml 06/06/20 15:00 Sodium Chloride 0.9% 10 Ml Flush Syringe IV PRN PRN LINE FLUSH Tamsulosin HCl 0.4 mg 06/14/20 11:00 06/25/20 09:34 Tamsulosin 0.4 Mg Cap PO 0.4 mg QDAY YELENA Administration Nutrition/Malnutrition Assess - Dietary Evaluation Nutrition/Malnutrition Findings: Nutrition Notes Start: 06/08/20 11:43 Freq: Status: Active Protocol: Document 06/23/20 14:37 CW (Rec: 06/23/20 14:46 CW [email or web address]) Nutrition Notes Initial or Follow up Reassessment Current Diagnosis Acute Kidney Injury,Diabetes, Hypertension Other Pertinent Diagnosis AMS, Dementia, UTI, metabolic encephalopathy, ?s/p CVA? Current Diet Mechanical soft diet + ONS BID Labs/Tests Na 135 K 3.4 BUN 27 Phos 2.2 Pertinent Medications Potassium phosphate 85 mmol Imodium MgS04 K dur Height 5 ft 8 in Weight 87.2 kg [place] Body Weight (kg) 70.00 BMI 29.2 Weight Status Appropriate Subjective/Other Information F/U for intakes adn ONS tolerance. Pt continues to eat very little. Recommend appetite stimulant at this time. Pt pleasantly confused. Pt requesting apple juice. D/t low tolerance with nepro will change to ensure clear apple to increase intake Percent of energy/protein needs met: 31%/47% Burn Absent Trauma Absent Difficulty In Swallowing Skin Integrity/Comment Stage 1 pressure ulcer Current % PO Negligible Minimum of two criteria No Fluid Accumulation Mild (non-severe) #2 Nutrition Diagnosis Increased nutrient needs ( specify in comment below) Diagnosis Progress(for reassessment Continues documentation) #1 Nutrition Diagnosis Inadequate oral intake Diagnosis Progress(for reassessment Continues documentation) Is patient on ventilator? No Is Patient Ambulatory and/or Out of Bed Yes REE-([facility]-ambulatory/OOB) [ 2028.950 [id number]] Calculation Used for Recommendations [facility] Additional Notes protein needs: 62 - 153g (0.8 - 1.2g/kgBW for ISAAC) fluid needs: 1 ml/kcal Nutrition Intervention Change Diet Order: Continue Mechanical Soft Diet and ONS Add Supplement/Snack (indicate name/kcal Ensure Clear TID /protein ) Provides kCal: 720 Provides Protein (gm) 24 Goal #1 Meet at least 75% of kcal and proteins via PO and ONS Goal #2 wound healing Anticipated Discharge Needs: Mechanical Soft diet + ONS PRN Follow-Up By: 06/28/20 Additional Comments F/U intakes and ONS tolerance
--- NOTE | 2020-06-25 14:42 | Progress Note ---
Assessment and Plan 1. Acute kidney injury: Vasomotor ISAAC in the setting of shock. Renal US negative for hydro. Monitor renal function. Creatinine level is better. Avoid nephrotoxic agents. Meds dosage based on GFR. 2. FEN: Hypernatremia, improved. Hypokalemia, replete K as needed, monitor. Metabolic acidosis, improved. Monitor volume status and lytes. 3. Sepsis with shock: Currently off pressors. Monitor BP. 4. UTI: S/p Abx. 5. Acute hypoxemic respiratory failure: CXR clear. Initial COVID test negative. Repeat Covid test positive. On RA. 6. Colitis: C.diff negative. 7. Metabolic encephalopathy: Monitor. 8. H/o Dementia: Supportive care. 9. H/o HTN: Monitor BP. 10. Anemia, POA: Monitor. Subjective: Patient was seen and examined at the bedside. No new complaint. Objective: General appearance: well-developed, appears stated age, not in distress HEENT: ATNC Neck: trachea midline Respiratory: ctab Heart: regular, S1S2, no murmur Gastrointestinal: soft, normoactive bowel sounds, not tender Integumentary: sacral wound noted Ext: trace extremity edema Neurologic: alert, conversing, able to move extremities : Hair catheter Subjective Date of service: 06/25/20 Principal diagnosis: shock Objective - Vital Signs Vital signs: Vital Signs - 12hr 06/25/20 06/25/20 06/25/20 03:59 07:46 09:33 Temperature 98.6 F Pulse Rate 69 69 Respiratory 19 18 Rate Blood Pressure 126/62 126/62 O2 Sat by Pulse 99 Oximetry 06/25/20 12:18 Temperature 97.8 F Pulse Rate 72 Respiratory 18 Rate Blood Pressure 124/50 O2 Sat by Pulse 97 Oximetry - Lab 06/20/20 06:00 06/25/20 08:35 Most recent lab results ABG pH 7.329 pH Units (7.350-7.450) L 06/06/20 11:18 ABG pCO2 27.8 mm Hg 06/06/20 11:18 ABG pO2 258.1 mm Hg (80.0-90.0) H 06/06/20 11:18 ABG HCO3 14.3 mmol/L (20.0-26.0) L 06/06/20 11:18 ABG O2 Saturation 99.4 % (95.0-99.0) H 06/06/20 11:18 Calcium 7.2 mg/dL (8.4-10.2) L 06/25/20 08:35 Phosphorus 2.50 mg/dL (2.5-4.5) 06/24/20 08:29 Magnesium 1.80 mg/dL (1.7-2.3) 06/24/20 08:29 Urine Creatinine 57.0 mg/dL (0.1-20.0) H 06/06/20 21:05 Urine Sodium 85 mmol/L 06/06/20 21:05 Medications & Allergies - Medications Allergies/Adverse Reactions: Allergies No Known Allergies Allergy (Verified 06/06/20 15:21) Home Medications: Home Medications Medication Instructions Recorded Confirmed Last Taken Type Amlodipine Besylate [Norvasc] 5 mg PO QDAY 06/06/20 06/06/20 Unknown History Calcium Carb/Magnesium Hydrox 500 mg PO QDAY 06/06/20 06/06/20 Unknown History [Antacid 1000-200 mg Tab Chew] Cholecalciferol (Vitamin D3) 2,000 unit PO QDAY 06/06/20 06/06/20 Unknown History [Vitamin D3 2,000 UNIT CAP] Dicyclomine [Bentyl] 10 mg PO TID 06/06/20 06/06/20 Unknown History Insulin Lispro [Insulin Lispro 10 unit SQ TID 06/06/20 06/06/20 Unknown History Kwikpen U-100] Melatonin [Melatonin 3MG TAB] 6 mg PO QHS 06/06/20 06/06/20 Unknown History Pantoprazole [Protonix TAB] 40 mg PO QDAY 06/06/20 06/06/20 Unknown History Pioglitazone HCl [Actos] 30 mg PO QDAY 06/06/20 06/06/20 Unknown History Pravastatin Sodium [Pravastatin] 10 mg PO QHS 06/06/20 06/06/20 Unknown History allopurinoL [Zyloprim] 100 mg PO QDAY 06/06/20 06/06/20 Unknown History Famotidine [Pepcid] 20 mg PO QDAY #30 tablet 06/17/20 Unknown Rx Cholestyramine (with Sugar) 4 gm PO BID #60 powd.pack 06/23/20 Unknown Rx [Cholestyramine Packet] Loperamide [Imodium] 2 mg PO Q2H PRN #10 capsule 06/23/20 Unknown Rx Metoprolol [Lopressor TAB] 25 mg PO BID #60 tablet 06/23/20 Unknown Rx Tamsulosin [Flomax] 0.4 mg PO QDAY #30 cap 06/23/20 Unknown Rx levoFLOXacin [Levaquin] 750 mg PO QDAY #3 tablet 06/23/20 Unknown Rx metroNIDAZOLE [Flagyl] 500 mg PO Q8HR #9 tablet 06/23/20 Unknown Rx Active Medications: Generic Name Dose Route Start Last Admin Trade Name Freq PRN Reason Stop Dose Admin Acetaminophen 650 mg 06/06/20 15:00 06/24/20 06:09 Acetaminophen 325 Mg Tab PO 650 mg Q6H PRN Administration Pain, Mild (1-3) Albuterol 2.5 mg 06/06/20 15:00 Albuterol 2.5 Mg/3 Ml Nebu IH Q3HRT PRN Shortness Of Breath Allopurinol 100 mg 06/07/20 10:00 06/25/20 09:34 Allopurinol 100 Mg Tab PO 100 mg QDAY YELENA Administration Calcium Carbonate/Glycine 500 mg 06/07/20 10:00 06/25/20 09:34 Calcium Carbonate 500 Mg Tab Chew PO 500 mg QDAY YELENA Administration Cholecalciferol 2,000 unit 06/07/20 10:00 06/25/20 09:34 Cholecalciferol (Vit D3) 1000 Unit (25 Mcg) Tab PO 2,000 unit QDAY YELENA Administration Cholestyramine Resin 4 gm 06/12/20 22:00 06/25/20 09:33 Cholestyramine (With Sugar) 4 Gm Packet PO 4 gm BID YELENA Administration Dicyclomine HCl 10 mg 06/06/20 20:00 06/25/20 07:46 Dicyclomine 10 Mg Cap PO 10 mg TID YELENA Administration Famotidine 20 mg 06/13/20 10:00 06/25/20 09:33 Famotidine 20 Mg Tab PO 20 mg QDAY YELENA Administration Hydrophilic Ointment 1 applic 06/24/20 11:00 06/25/20 07:47 Lip Therapy Vaseline TP 1 applic DIRECT PRN Administration Dry Lips Levofloxacin/Dextrose 750 mg in 150 mls @ 100 mls/hr 06/20/20 16:00 06/24/20 16:49 Levaquin 750mg/150ml IV 06/26/20 15:59 100 mls/hr Q48H YELENA Administration Protocol Metronidazole 500 mg in 100 mls @ 100 mls/hr 06/20/20 18:00 06/25/20 09:34 Flagyl 500 Mg/100 Ml IV 06/27/20 10:59 100 mls/hr Q8H YELENA Administration Protocol Loperamide HCl 2 mg 06/22/20 12:30 06/23/20 21:31 Loperamide 2 Mg Cap PO 2 mg Q2H PRN Administration Diarrhea Magnesium Citrate 300 ml 06/06/20 16:20 Magnesium Citrate 300 Ml Oral Liqd PO QDAY PRN Constipation Metoprolol Tartrate 25 mg 06/09/20 22:00 06/25/20 09:33 Metoprolol Tartrate 25 Mg Tab PO 25 mg BID YELENA Administration Oxycodone/Acetaminophen 1 tab 06/24/20 12:30 06/25/20 07:46 Oxycodone /Acetaminophen 5-325mg Tab PO 1 tab Q4H PRN Administration Pain, Moderate (4-6) Pravastatin Sodium 10 mg 06/06/20 22:00 06/24/20 22:09 Pravastatin 20 Mg Tab PO 10 mg QHS YELENA Administration Sodium Bicarbonate 650 mg 06/16/20 20:00 06/25/20 07:47 Sodium Bicarbonate 650 Mg Tab PO 650 mg TID YELENA Administration Sodium Chloride 10 ml 06/06/20 15:00 06/25/20 09:34 Sodium Chloride 0.9% 10 Ml Flush Syringe IV 10 ml BID YELENA Administration Sodium Chloride 10 ml 06/06/20 15:00 Sodium Chloride 0.9% 10 Ml Flush Syringe IV PRN PRN LINE FLUSH Tamsulosin HCl 0.4 mg 06/14/20 11:00 06/25/20 09:34 Tamsulosin 0.4 Mg Cap PO 0.4 mg QDAY YELENA Administration Zinc Oxide 1 applic 06/25/20 11:00 Zinc Oxide 20% Oint 28.35 Gm TP BID [facility]
[2020-06-25] MEDS: ZINC OXIDE 20% OINT 28.35 GM TP SCH ×2 (14:55→23:00)
[2020-06-25] MEDS: PRAVASTATIN 20 MG TAB PO SCH (22:02)
[2020-06-26] MEDS: metroNIDAZOLE/NS 500 MG/100 ML 500 MG/100 ML BAG IV SCH ×3 (02:28→17:02)
[2020-06-26] MEDS: oxyCODONE /ACETAMINOPHEN 5-325MG TAB PO PRN ×3 (02:52→16:57)
[2020-06-26] MEDS: CALCIUM CARBONATE 500 MG TAB CHEW PO SCH (09:07)
[2020-06-26] MEDS: CHOLESTYRAMINE (WITH SUGAR) 4 GM PACKET PO SCH ×2 (09:07→22:25)
[2020-06-26] MEDS: FAMOTIDINE 20 MG TAB PO SCH (09:07)
[2020-06-26] MEDS: allopurinoL 100 MG TAB PO SCH (09:07)
[2020-06-26] MEDS: METOPROLOL TARTRATE 25 MG TAB PO SCH ×2 (09:07→22:25)
[2020-06-26] MEDS: DICYCLOMINE 10 MG CAP PO SCH ×3 (09:08→20:26)
[2020-06-26] MEDS: SODIUM BICARBONATE 650 MG TAB PO SCH ×3 (09:08→20:26)
[2020-06-26] MEDS: CHOLECALCIFEROL (VIT D3) 1000 UNIT (25 mcg) TAB PO SCH (09:08)
--- NOTE | 2020-06-26 09:28 | Progress Note ---
Assessment and Plan Assessment and plan: Septic Shock-resolved. Completed antibiotics Metabolic encephalopathy. Resolved Coag negative Staphylococcus 1/4 bottles. Likely contaminant Urinary tract infection. Urine culture showed no growth. Extensive colitis: C. difficile negative. On Levaquin and Flagyl given abnormal CT abdomen. Antidiarrheals Acute hypoxic respiratory failure-improved. Continue oxygen supplementation. Acute kidney injury secondary to vasomotor nephropathy. Nephrology on board Atrial fibrillation with RVR-rate is well controlled. On amiodarone. Cardiology recommendations appreciated Recurrent fevers. Repeat blood cultures negative so far Electrolyte abnormalities-Resolved COVID-19 infection-stable. No need for dexamethasone he is not hypoxic. ID following Sacral ulcer-regular turning. Zinc oxide barrier cream PRN Discharge planning. Plan to discharge to skilled facility when accepted - Patient Problems (1) Acute kidney injury (ISAAC) with acute tubular necrosis (ATN) Current Visit: Yes Status: Acute (2) Hyperkalemia Current Visit: Yes Status: Acute (3) Metabolic acidosis Current Visit: Yes Status: Acute (4) Septic shock Current Visit: Yes Status: Acute History Interval history: 80-year-old male who is a resident of assisted living facility with vascular dementia, cerebral sclerosis, debility, diabetes mellitus who presents to the emergency department on 06/06 with complaints of lethargy and diminished cognition as per daughter he developed an episode of unresponsiveness while at breakfast at at his assisted living facility. Patient was found to have a urinary tract infection complicated by sepsis and septic shock, acute kidney injury, toxic metabolic encephalopathy as well as metabolic acidosis. Patient was hypotensive with systolic blood pressures in the 50s and was initiated on vasopressor support in the emergency department. Patient was admitted to the hospital service with consults to nephrology and [facility]. Hospital course 06/07: Patient remains on dopamine, vasopressin and Levophed. Nephrology has started the patient on sodium bicarbonate drip for metabolic acidosis. Infectious disease initiated vancomycin in addition to the cefepime and ordered a C. difficile. 06/08: Patient has gram-positive cocci bacteremia in 1/4 bottles which grew to be coag negative staph coccus and he has repeat blood cultures in progress. Urine culture has no growth to date and he is on IV vancomycin and cefepime. Yesterday we ordered a C. difficile PCR which is pending. Patient had a moment of tachycardia into the 130s and a stat EKG was obtained. Patient was given amiodarone bolus by [facility] and cardiology was consulted. Patient is hyperchloremic today however his metabolic acidosis and BUN/creatinine is slightly improved to 93/3.2 from 100/3.6 and his repeat lactic acid is 1.5. At the time my examination patient was on Levophed at 6, vasopressin 0.03 and dopamine at 6. This morning patient failed his swallow eval and ST evaluation was ordered. Of note patient's echocardiogram shows reduced 15 to 20% with borderline left ventricular hypertrophy. 06/09: This morning his speech evaluation was completed and he has been cleared for mechanical soft diet with thin liquids. Patient complained of right-sided chest pain with radiation to shoulders and a stat EKG cardiac enzymes were ordered. Patient was recultured yesterday and those have no growth to date and his vancomycin was stopped. Infectious disease team recommends removal of Torres catheter when feasible and a CT abdomen/pelvis when stable. Patient has been cleared to transfer to the floor by cardiology and [facility]. 06/10/2020; patient is on IV cefepime for sepsis due to UTI day 3 out of 5. Vancomycin discontinued. Patient is complaining pleuritic chest pain. Patient was evaluated by cardiology for elevated troponin and episode of A. fib on admi ssion. Cardiology discontinued amiodarone and put her on Lopressor. Cardiology recommend against anticoagulation because of patient's anemia. Hemoglobin this morning was 7.4 and anemia work-up is in progress. I did ordered CT abdomen and pelvis. PT OT evaluation. Patient has ISAAC and nephrology is following. Patient has rectal tube and liquid stool in the bag. I ordered stool for C. difficile. We will continue to monitor. 06/11/2020; patient is on cefepime day 4/5. CT abdomen and pelvis was done and significant for colitis, ischemic colitis is possibility given hypotension and elevated lactic acid level. I will consult GI. Patient has episode of A. fib for less than 24 hours, cardiology was consulted and recommend to be on Lopressor. No need for coagulation because of his anemia. Hemoglobin this morning is improved to 8. Anemia work-up was done, no iron deficiency anemia id entified. ISAAC is improving. C. difficile was negative. 06/12/2020; continue cefepime per ID recommendation. CT abdomen and pelvis is significant for ischemic colitis likely due to septic shock, hypotension. Patient was seen by GI and recommend no further intervention at this time. Patient had episode of A. fib on admission for less than 24 hours and cardiology recommend to continue on Lopressor, no anticoagulation needed. Hemoglobin is improving. Patient came from assisted living facility. Patient need Covid test before discharge. ISAAC is improving. Creatinine this morning was 1.7. Ne phrology is following. OT evaluated and recommend subacute rehab, PT evaluation is pending. 06/13: Replace K and Mag, continue to monitor renal fuction, Continue abx per ID, c.diff negative. patient still with Rectal tube and Torres but will re- evaluate for possible discontinuation. Questran started by GI. Will continue to monitor and replace electrolytes Discussed with nursing staff to change torres to condom catheter CM to try and ascertain patients functional status prior to hospitalization 06/14: Patient showing some clinical improvement Torres replaced due to urinary retention about 1000 cc of clear urine removed. Flomax started. PT OT consulted as patient is noted to have been ambulatory prior to this admission will likely need SNF placement. Diarrhea consistency is improving anticipate discharge in 24 to 48 hours once approval is obtained. Cardiology input is noted Lopressor 25 mg p.o. twice daily possible addition of SABIHA inhibitor or ARB when okay with nephrology as regular this is a is improving. At this time no AC for A. fib management due to anemia and the transient nature of the A. fib which was less than 24 hours. 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 Unknown etiology or chronicity of these diagnoses. No current clinical evidence of acutely decompensated HF. Per [facility], pt saw [facility] in 1998 and underwent LHC which did not show any significant findings. Continue with conservative cardiac management given pt's advanced age, dementia and multiple co-morbidities. Recommend pt follow up in our office with Dr. Rosa within 2 weeks of discharg e ([phone]). 06/15: Continue supportive care. Will give a unit of PRBC and anticipate discharg e today or tomorrow once approval from insurance company obtained. PATIENT will need urology follow up outpatient and also cardiology outpatient. Discussed with patient and Case management Continue PT OT 06/16: Still awaiting prior approval from the insurance company for patient to be discharged. Continue supportive care thrombocytopenia noted again antiplatelets are on hold. We will continue to monitor anticipate discharge once prior authorization is received from insurance [employer]. Continue rehab therapy while in house 06/17: Severe hyperkalemia noted in the setting of renal dysfunction. Will hold discharge. Also patient with intermittent fevers culture still on resolved. Bolus of fluid given will also give some Kayexalate to correct hyperkalemia. 06/18: Still with low-grade fever. White count still normal. Potassium mild hypokalemia. Will monitor closely renal function showing some improvement. If continues to improve we will anticipate discharge tomorrow. Still with elevated troponin but improved compared to prior. No respiratory compromise noted at this time diarrhea still present. Will discuss with ID if patient should empirically be treated with p.o. vancomycin despite negative C. difficile for with Flagyl. 06/19: Considering noted deformity on bilateral shoulders will obtain an x-ray just to ensure that there is no other acute event. I reviewed the chart and not has been done. Continue bicarb drip may need to decrease rate but will defer to [facility]. Awaiting labs from today. Anticipate discharge in a.m. we will also rule out bilateral upper extremity DVT due to the swelling. 06/20: Patient is a 80-year-old male who presented to the hospital for dialysis related facility with complaints of lethargy diminished cognition diagnosed with septic shock with diarrhea but with C. difficile negative during hospital stay was noted to be cardiac arrhythmia with tachycardia resolved with amiodarone. Was also noted to have ISAAC likely secondary to ATN showed some improvement and stabilized. Diarrhea persisted was managed with fecal management system with ID input noted. Fortunately the past few days has been having recurrent fever today noted to have a distended abdomen although nontender CT abdomen and pelvis with oral contrast was added following clearance from [facility]. 06/21. Patient seen and examined at bedside this morning. Ultrasound of the upper extremities showed no DVT. He has been advised to elevate right upper extremity to improve swelling. Potassium is very low today he will get potassium replacement. Plan for possible discharge tomorrow. Remained afebrile overnight 06/22. Having electrolyte abnormalities. Repleting. Will repeat levels this PM. On Antibiotics for colitis. Will dc when his electrolytes become stable. 06/23. Plan for discharge today as electrolytes have improved. COVID-19 test was positive so he would not go to [facility] as per case consultant. Plan to search for facilities that will accept him 06/24. Electrolytes have normalized. Awaiting placement 06/25. Complains of pain around the buttock area. Resumed home dose oxycodone yesterday. 06/26. Needs placement. To complete antibiotics tomorrow. Hospitalist Physical - Physical exam Narrative exam: VITAL SIGNS: Reviewed. GENERAL: Awake HEAD: No signs of head trauma. EYES: Pupils are equal. Extraocular motions intact. MOUTH: Oropharynx is normal. NECK: No adenopathy, no JVD. CHEST: Chest with diminished breath sounds bilaterally. No wheezes, rales, or rhonchi. CARDIAC: normal S1 and S2, without murmurs, gallops, or rubs. ABDOMEN: Soft, non tender and non distended. No rebound or guarding, and no masses palpated. Bowel Sounds normal. MUSCULOSKELETAL: No edema NEUROLOGIC EXAM: Alert and oriented x3. No focal neurologic deficits SKIN: No obvious lesions - Constitutional Vitals: Temp Pulse Resp BP Pulse Ox 99.2 F 76 20 109/50 96 06/26/20 03:34 06/26/20 09:07 06/26/20 03:34 06/26/20 09:07 06/26/20 03:34 HEART Score - HEART Score Troponin: Troponin T 0.141 ng/mL (0.00-0.029) H* 06/18/20 10:39 Results - Labs CBC & Chem 7: 06/20/20 06:00 06/25/20 08:35 Labs: Laboratory Last Values WBC 4.9 K/mm3 (4.5-11.0) 06/20/20 06:00 RBC 2.48 M/mm3 (3.65-5.03) L 06/20/20 06:00 Hgb 8.1 gm/dl (11.8-15.2) L 06/20/20 06:00 Hct 23.9 % (35.5-45.6) L 06/20/20 06:00 MCV 97 fl (84-94) H 06/20/20 06:00 MCH 33 pg (28-32) H 06/20/20 06:00 MCHC 34 % (32-34) 06/20/20 06:00 RDW 14.0 % (13.2-15.2) 06/20/20 06:00 Plt Count 279 K/mm3 (140-440) 06/20/20 06:00 Lymph % (Auto) 6.8 % (13.4-35.0) L 06/13/20 06:13 [place] % (Auto) 5.0 % (0.0-7.3) 06/13/20 06:13 Eos % (Auto) 1.7 % (0.0-4.3) 06/13/20 06:13 Baso % (Auto) 0.2 % (0.0-1.8) 06/13/20 06:13 Lymph # (Auto) 0.9 K/mm3 (1.2-5.4) L 06/13/20 06:13 [place] # (Auto) 0.7 K/mm3 (0.0-0.8) 06/13/20 06:13 Eos # (Auto) 0.2 K/mm3 (0.0-0.4) 06/13/20 06:13 Baso # (Auto) 0.0 K/mm3 (0.0-0.1) 06/13/20 06:13 Add Manual Diff Complete 06/16/20 12:50 Total Counted 100 06/16/20 12:50 Seg Neutrophils % 86.3 % (40.0-70.0) H 06/13/20 06:13 Seg Neuts % (Manual) 65.0 % (40.0-70.0) 06/16/20 12:50 Band Neutrophils % 20.0 % 06/16/20 12:50 Lymphocytes % (Manual) 6.0 % (13.4-35.0) L 06/16/20 12:50 Reactive Lymphs % (Man) 1.0 % 06/12/20 05:24 Monocytes % (Manual) 9.0 % (0.0-7.3) H 06/16/20 12:50 Eosinophils % (Manual) 2.0 % (0.0-4.3) 06/12/20 05:24 Nucleated RBC % Not Reportable 06/16/20 12:50 Seg Neutrophils # 11.9 K/mm3 (1.8-7.7) H 06/13/20 06:13 Seg Neutrophils # Man 7.2 K/mm3 (1.8-7.7) 06/16/20 12:50 Band Neutrophils # 2.2 K/mm3 06/16/20 12:50 Lymphocytes # (Manual) 0.7 K/mm3 (1.2-5.4) L 06/16/20 12:50 Abs React Lymphs (Man) 0.0 K/mm3 06/16/20 12:50 Monocytes # (Manual) 1.0 K/mm3 (0.0-0.8) H 06/16/20 12:50 Eosinophils # (Manual) 0.0 K/mm3 (0.0-0.4) 06/16/20 12:50 Basophils # (Manual) 0.0 K/mm3 (0.0-0.1) 06/16/20 12:50 Metamyelocytes # 0.0 K/mm3 06/16/20 12:50 Myelocytes # 0.0 K/mm3 06/16/20 12:50 Promyelocytes # 0.0 K/mm3 06/16/20 12:50 Blast Cells # 0.0 K/mm3 06/16/20 12:50 WBC Morphology Not Reportable 06/16/20 12:50 Hypersegmented Neuts Not Reportable 06/16/20 12:50 Hyposegmented Neuts Not Reportable 06/16/20 12:50 Hypogranular Neuts Not Reportable 06/16/20 12:50 Smudge Cells Not Reportable 06/16/20 12:50 Toxic Granulation Not Reportable 06/16/20 12:50 Toxic Vacuolation Not Reportable 06/16/20 12:50 Dohle Bodies Not Reportable 06/16/20 12:50 Pelger-Huet Anomaly Not Reportable 06/16/20 12:50 Denys Rods Not Reportable 06/16/20 12:50 Platelet Estimate Consistent w auto 06/16/20 12:50 Clumped Platelets Rare 06/16/20 12:50 Plt Clumps, EDTA Not Reportable 06/16/20 12:50 Large Platelets Rare 06/16/20 12:50 Giant Platelets Not Reportable 06/16/20 12:50 Platelet Satelliting Not Reportable 06/16/20 12:50 Plt Morphology Comment Not Reportable 06/16/20 12:50 RBC Morphology Normal 06/16/20 12:50 Dimorphic RBCs Not Reportable 06/16/20 12:50 Polychromasia Not Reportable 06/16/20 12:50 Hypochromasia Not Reportable 06/16/20 12:50 Poikilocytosis Not Reportable 06/16/20 12:50 Anisocytosis Not Reportable 06/16/20 12:50 Microcytosis Not Reportable 06/16/20 12:50 Macrocytosis Not Reportable 06/16/20 12:50 Spherocytes Not Reportable 06/16/20 12:50 Pappenheimer Bodies Not Reportable 06/16/20 12:50 Sickle Cells Not Reportable 06/16/20 12:50 Target Cells Not Reportable 06/16/20 12:50 Tear Drop Cells Not Reportable 06/16/20 12:50 Ovalocytes Not Reportable 06/16/20 12:50 Helmet Cells Not Reportable 06/16/20 12:50 Brenner-Alston Bodies Not Reportable 06/16/20 12:50 Clifton Rings Not Reportable 06/16/20 12:50 [place] Cells Not Reportable 06/16/20 12:50 Bite Cells Not Reportable 06/16/20 12:50 Crenated Cell Not Reportable 06/16/20 12:50 Elliptocytes Not Reportable 06/16/20 12:50 Acanthocytes (Spur) Not Reportable 06/16/20 12:50 Rouleaux Not Reportable 06/16/20 12:50 Hemoglobin C Crystals Not Reportable 06/16/20 12:50 Schistocytes Not Reportable 06/16/20 12:50 Malaria parasites Not Reportable 06/16/20 12:50 Chance Bodies Not Reportable 06/16/20 12:50 Hem Pathologist Commnt No 06/16/20 12:50 PT 16.3 Sec. (12.2-14.9) H 06/06/20 10:19 INR 1.33 (0.87-1.13) H 06/06/20 10:19 APTT 31.6 Sec. (24.2-36.6) 06/06/20 10:19 ABG pH 7.329 pH Units (7.350-7.450) L 06/06/20 11:18 ABG pCO2 27.8 mm Hg 06/06/20 11:18 ABG pO2 258.1 mm Hg (80.0-90.0) H 06/06/20 11:18 ABG HCO3 14.3 mmol/L (20.0-26.0) L 06/06/20 11:18 ABG O2 Saturation 99.4 % (95.0-99.0) H 06/06/20 11:18 ABG O2 Content 13.2 (0.0-44) 06/06/20 11:18 ABG Base Excess -10.5 mmol/L (-2.0-3.0) L 06/06/20 11:18 ABG Hemoglobin 9.1 gm/dl (14.0-18.0) L 06/06/20 11:18 ABG Carboxyhemoglobin 1.3 % (0.0-5.0) 06/06/20 11:18 ABG Methemoglobin Not Reportable 06/06/20 11:18 VBG pH 7.438 (7.320-7.420) H 06/06/20 10:19 Oxyhemoglobin 98.2 % (95.0-99.0) 06/06/20 11:18 FiO2 21 % 06/06/20 11:18 Sodium 135 mmol/L (137-145) L 06/25/20 08:35 Potassium 4.7 mmol/L (3.6-5.0) 06/25/20 08:35 Chloride 109.3 mmol/L (98-107) H 06/25/20 08:35 Carbon Dioxide 20 mmol/L (22-30) L 06/25/20 08:35 Anion Gap 10 mmol/L 06/25/20 08:35 BUN 20 mg/dL (9-20) 06/25/20 08:35 Creatinine 1.2 mg/dL (0.8-1.3) 06/25/20 08:35 Estimated GFR > 60 ml/min 06/25/20 08:35 BUN/Creatinine Ratio 17 % 06/25/20 08:35 Glucose 64 mg/dL (75-100) L 06/25/20 08:35 POC Glucose 86 mg/dL (70-105) 06/26/20 08:21 Lactic Acid 1.50 mmol/L (0.7-2.0) 06/08/20 05:15 Calcium 7.2 mg/dL (8.4-10.2) L 06/25/20 08:35 Phosphorus 2.50 mg/dL (2.5-4.5) 06/24/20 08:29 Magnesium 1.80 mg/dL (1.7-2.3) 06/24/20 08:29 Iron 54 ug/dL (49-181) 06/10/20 10:44 TIBC 157 mcg/dL (250-450) L 06/10/20 10:44 Ferritin 569.5 ng/mL (30.0-300.0) H 06/10/20 10:44 Total Bilirubin 0.20 mg/dL (0.1-1.2) 06/14/20 05:23 AST 19 units/L (5-40) 06/14/20 05:23 ALT 20 units/L (7-56) 06/14/20 05:23 Alkaline Phosphatase 55 units/L (35-129) 06/14/20 05:23 Ammonia 64.0 umol/L (25-60) H 06/06/20 10:19 Total Creatine Kinase 1212 units/L (55-170) H 06/09/20 12:57 CK-MB (CK-2) 12.1 ng/mL (0.0-4.0) H 06/09/20 12:57 CK-MB (CK-2) Rel Index 0.9 (0-4) 06/09/20 12:57 Troponin T 0.141 ng/mL (0.00-0.029) H* 06/18/20 10:39 Total Protein 4.9 g/dL (6.3-8.2) L 06/14/20 05:23 Albumin 2.4 g/dL (3.9-5) L 06/14/20 05:23 Albumin/Globulin Ratio 1.0 % 06/14/20 05:23 Triglycerides 103 mg/dL (2-149) 06/06/20 10:19 Cholesterol 84 mg/dL (50-199) 06/06/20 10:19 LDL Cholesterol Direct 28 mg/dL (50-130) L 06/06/20 10:19 HDL Cholesterol 44 mg/dL (40-59) 06/06/20 10:19 Cholesterol/HDL Ratio 1.90 % 06/06/20 10:19 Vitamin B12 1170 pg/mL (211-911) H 06/10/20 14:49 RBC Folic Acid 829 ng/mL (>280) 06/10/20 10:44 TSH 4.440 mlU/mL (0.270-4.200) H 06/06/20 10:19 Free T4 1.55 ng/dL (0.76-1.46) H 06/06/20 10:19 PTH Intact 271.9 pg/mL (15-65) H 06/08/20 05:15 Urine Color Yellow (Yellow) 06/06/20 14:02 Urine Turbidity Cloudy (Clear) 06/06/20 14:02 Urine pH 6.0 (5.0-7.0) 06/06/20 14:02 Ur Specific Vernal 1.013 (1.003-1.030) 06/06/20 14:02 Urine Protein 100 mg/dl mg/dL (Negative) 06/06/20 14:02 Urine Glucose (UA) Neg mg/dL (Negative) 06/06/20 14:02 Urine Ketones Neg mg/dL (Negative) 06/06/20 14:02 Urine Blood Sm (Negative) 06/06/20 14:02 Urine Nitrite Neg (Negative) 06/06/20 14:02 Urine Bilirubin Neg (Negative) 06/06/20 14:02 Urine Urobilinogen < 2.0 mg/dL (<2.0) 06/06/20 14:02 Ur Leukocyte Esterase Lg (Negative) 06/06/20 14:02 Urine WBC (Auto) > 182.0 /HPF (0.0-6.0) H 06/06/20 14:02 Urine RBC (Auto) 55.0 /HPF (0.0-6.0) 06/06/20 14:02 U Epithel Cells (Auto) 1.0 /HPF (0-13.0) 06/06/20 14:02 Urine WBC Clumps 2+ /HPF 06/06/20 14:02 Urine Creatinine 57.0 mg/dL (0.1-20.0) H 06/06/20 21:05 Urine Sodium 85 mmol/L 06/06/20 21:05 Random Vancomycin 9.8 ug/mL (0-40.0) 06/09/20 04:30 Urine Opiates Screen Presumptive negative 06/06/20 14:02 Urine Methadone Screen Presumptive negative 06/06/20 14:02 Ur Barbiturates Screen Presumptive negative 06/06/20 14:02 Ur Phencyclidine Scrn Presumptive negative 06/06/20 14:02 Ur Amphetamines Screen Presumptive negative 06/06/20 14:02 U Benzodiazepines Scrn Presumptive negative 06/06/20 14:02 Urine Cocaine Screen Presumptive negative 06/06/20 14:02 U Marijuana (THC) Screen Presumptive negative 06/06/20 14:02 Drugs of Abuse Note Disclamer 06/06/20 14:02 Plasma/Serum Alcohol < 0.01 % (0-0.07) 06/06/20 10:19 C. difficile Tox (PCR) Negative (Negative) 06/08/20 Unknown Coronavirus (PCR) Positive (Negative) A 06/22/20 10:00 Blood Type O POSITIVE 06/15/20 11:00 Antibody Screen Negative 06/15/20 11:00 Crossmatch See Detail 06/15/20 11:00 Microbiology: Microbiology 06/20/20 15:43 Peripheral/Venous Blood Culture - Final NO GROWTH AFTER 5 DAYS 06/20/20 15:43 Peripheral/Venous Blood Culture - Final NO GROWTH AFTER 5 DAYS Torres/IV: Voiding Method Indwelling Catheter Active Medications - Current Medications Current Medications: Generic Name Dose Route Start Last Admin Trade Name Freq PRN Reason Stop Dose Admin Acetaminophen 650 mg 06/06/20 15:00 06/24/20 06:09 Acetaminophen 325 Mg Tab PO 650 mg Q6H PRN Administration Pain, Mild (1-3) Albuterol 2.5 mg 06/06/20 15:00 Albuterol 2.5 Mg/3 Ml Nebu IH Q3HRT PRN Shortness Of Breath Allopurinol 100 mg 06/07/20 10:00 06/26/20 09:07 Allopurinol 100 Mg Tab PO 100 mg QDAY YELENA Administration Calcium Carbonate/Glycine 500 mg 06/07/20 10:00 06/26/20 09:07 Calcium Carbonate 500 Mg Tab Chew PO 500 mg QDAY YELENA Administration Cholecalciferol 2,000 unit 06/07/20 10:00 06/26/20 09:08 Cholecalciferol (Vit D3) 1000 Unit (25 Mcg) Tab PO 2,000 unit QDAY YELENA Administration Cholestyramine Resin 4 gm 06/12/20 22:00 06/26/20 09:07 Cholestyramine (With Sugar) 4 Gm Packet PO 4 gm BID YELENA Administration Dicyclomine HCl 10 mg 06/06/20 20:00 06/26/20 09:08 Dicyclomine 10 Mg Cap PO 10 mg TID YELENA Administration Famotidine 20 mg 06/13/20 10:00 06/26/20 09:07 Famotidine 20 Mg Tab PO 20 mg QDAY YELENA Administration Hydrophilic Ointment 1 applic 06/24/20 11:00 06/25/20 07:47 Lip Therapy Vaseline TP 1 applic DIRECT PRN Administration Dry Lips Levofloxacin/Dextrose 750 mg in 150 mls @ 100 mls/hr 06/20/20 16:00 06/24/20 16:49 Levaquin 750mg/150ml IV 06/26/20 15:59 100 mls/hr Q48H YELENA Administration Protocol Metronidazole 500 mg in 100 mls @ 100 mls/hr 06/20/20 18:00 06/26/20 09:06 Flagyl 500 Mg/100 Ml IV 06/27/20 10:59 100 mls/hr Q8H YELENA Administration Protocol Loperamide HCl 2 mg 06/22/20 12:30 06/23/20 21:31 Loperamide 2 Mg Cap PO 2 mg Q2H PRN Administration Diarrhea Magnesium Citrate 300 ml 06/06/20 16:20 Magnesium Citrate 300 Ml Oral Liqd PO QDAY PRN Constipation Metoprolol Tartrate 25 mg 06/09/20 22:00 06/26/20 09:07 Metoprolol Tartrate 25 Mg Tab PO 25 mg BID YELENA Administration Oxycodone/Acetaminophen 1 tab 06/24/20 12:30 06/26/20 09:08 Oxycodone /Acetaminophen 5-325mg Tab PO 1 tab Q4H PRN Administration Pain, Moderate (4-6) Pravastatin Sodium 10 mg 06/06/20 22:00 06/25/20 22:02 Pravastatin 20 Mg Tab PO 10 mg QHS YELENA Administration Sodium Bicarbonate 650 mg 06/16/20 20:00 06/26/20 09:08 Sodium Bicarbonate 650 Mg Tab PO 650 mg TID YELENA Administration Sodium Chloride 10 ml 06/06/20 15:00 06/26/20 09:08 Sodium Chloride 0.9% 10 Ml Flush Syringe IV 10 ml BID YELENA Administration Sodium Chloride 10 ml 06/06/20 15:00 Sodium Chloride 0.9% 10 Ml Flush Syringe IV PRN PRN LINE FLUSH Tamsulosin HCl 0.4 mg 06/14/20 11:00 06/25/20 09:34 Tamsulosin 0.4 Mg Cap PO 0.4 mg QDAY YELENA Administration Zinc Oxide 1 applic 06/25/20 11:00 06/25/20 23:00 Zinc Oxide 20% Oint 28.35 Gm TP 1 applic BID YELENA Administration Nutrition/Malnutrition Assess - Dietary Evaluation Nutrition/Malnutrition Findings: Nutrition Notes Start: 06/08/20 11:43 Freq: Status: Active Protocol: Document 06/26/20 08:04 CW (Rec: 06/26/20 08:20 CW [id number]) Nutrition Notes Need for Assessment generated from: MD Order Current Diagnosis Acute Kidney Injury,Diabetes, Hypertension Other Pertinent Diagnosis AMS, Dementia, UTI, metabolic encephalopathy, ?s/p CVA? Current Diet Mechanical soft diet + ONS BID Labs/Tests 06/26/2019 Na 135 K 4.7 BG 64 Pertinent Medications reviewed Height 5 ft 8 in Weight 87.2 kg [place] Body Weight (kg) 70.00 BMI 29.2 Weight Status Overweight Subjective/Other Information MD consult for dietary supplements. Updated diet order to provide ensure clear TID. Intake continues to be very low; <25% x7 days. recommend appetite stimulant or alternate feeding method based on POC Percent of energy/protein needs met: 27%/33% Burn Absent Trauma Absent Difficulty In Swallowing Skin Integrity/Comment Stage 1 pressure ulcer Current % PO Negligible Minimum of two criteria Yes Energy Intake (severe) < or equal to 50% Estimated Energy Requirement > or equal to 5 days Fluid Accumulation Mild (non-severe) Reduced Rental Representative Strength Measurably Reduced (severe) #3 Nutrition Diagnosis Malnutrition Etiology lack of appetite As Evidenced by Signs and Symptoms bilateral weak girp strength, <50% of intake of energy needs x 7 days, nonpitting edema #2 Nutrition Diagnosis Increased nutrient needs ( specify in comment below) Diagnosis Progress(for reassessment Continues documentation) #1 Nutrition Diagnosis Inadequate oral intake As Evidenced by Signs and Symptoms Pt eating 0% of meals and drinking 33% of ONS Diagnosis Progress(for reassessment Worsened documentation) Is patient on ventilator? No Is Patient Ambulatory and/or Out of Bed Yes REE-(Garrison-St. Jeor-ambulatory/OOB) [ 2028. [id number]] Calculation Used for Recommendations Garrison-St Jeor Additional Notes protein needs: 104 - 131g (1. 2 - 1.5g/kgBW for ISAAC) fluid needs: 1 ml/kcal Nutrition Intervention Change Diet Order: Continue Mechanical Soft Diet and ONS Add Supplement/Snack (indicate name/kcal Ensure Clear TID /protein ) Provides kCal: 720 Provides Protein (gm) 24 Goal #1 Meet at least 75% of kcal and proteins via PO and ONS Goal #2 wound healing Anticipated Discharge Needs: Mechanical Soft diet + ONS PRN Follow-Up By: 06/28/20 Additional Comments F/U intakes and ONS tolerance; POC
[2020-06-26] MEDS: ZINC OXIDE 20% OINT 28.35 GM TP SCH ×2 (12:22→22:00)
[2020-06-26] MEDS: TAMSULOSIN 0.4 MG CAP PO SCH (12:22)
--- NOTE | 2020-06-26 13:13 | Progress Note ---
Assessment and Plan 1. Acute kidney injury: Vasomotor ISAAC in the setting of shock. Renal US negative for hydro. Monitor renal function. Creatinine level is better. Avoid nephrotoxic agents. Meds dosage based on GFR. 2. FEN: Hypernatremia, improved. Hypokalemia, improved, monitor. Metabolic acidosis, improved. Monitor volume status and lytes. 3. Sepsis with shock: Resolved, s/p abx. 4. UTI: S/p Abx. 5. Acute hypoxemic respiratory failure: CXR clear. Initial COVID test negative. Repeat Covid test positive. On RA. 6. Colitis: C.diff negative. 7. Metabolic encephalopathy: Monitor. 8. H/o Dementia: Supportive care. 9. H/o HTN: Monitor BP. 10. Anemia, POA: Monitor. Subjective: Patient was seen and examined at the bedside. No new complaint. Objective: General appearance: well-developed, appears stated age, not in distress HEENT: ATNC Neck: trachea midline Respiratory: ctab Heart: regular, S1S2, no murmur Gastrointestinal: soft, normoactive bowel sounds, not tender Integumentary: sacral wound noted Ext: trace dependent edema Neurologic: alert, conversing, able to move extremities : Hair catheter Subjective Date of service: 06/26/20 Principal diagnosis: shock Objective - Vital Signs Vital signs: Vital Signs - 12hr 06/26/20 06/26/20 03:34 09:07 Temperature 99.2 F Pulse Rate 76 76 Respiratory 20 Rate Blood Pressure 109/50 109/50 O2 Sat by Pulse 96 Oximetry - Lab 06/20/20 06:00 06/25/20 08:35 Most recent lab results ABG pH 7.329 pH Units (7.350-7.450) L 06/06/20 11:18 ABG pCO2 27.8 mm Hg 06/06/20 11:18 ABG pO2 258.1 mm Hg (80.0-90.0) H 06/06/20 11:18 ABG HCO3 14.3 mmol/L (20.0-26.0) L 06/06/20 11:18 ABG O2 Saturation 99.4 % (95.0-99.0) H 06/06/20 11:18 Calcium 7.2 mg/dL (8.4-10.2) L 06/25/20 08:35 Phosphorus 2.50 mg/dL (2.5-4.5) 06/24/20 08:29 Magnesium 1.80 mg/dL (1.7-2.3) 06/24/20 08:29 Urine Creatinine 57.0 mg/dL (0.1-20.0) H 06/06/20 21:05 Urine Sodium 85 mmol/L 06/06/20 21:05 Medications & Allergies - Medications Allergies/Adverse Reactions: Allergies No Known Allergies Allergy (Verified 06/06/20 15:21) Home Medications: Home Medications Medication Instructions Recorded Confirmed Last Taken Type Amlodipine Besylate [Norvasc] 5 mg PO QDAY 06/06/20 06/06/20 Unknown History Calcium Carb/Magnesium Hydrox 500 mg PO QDAY 06/06/20 06/06/20 Unknown History [Antacid 1000-200 mg Tab Chew] Cholecalciferol (Vitamin D3) 2,000 unit PO QDAY 06/06/20 06/06/20 Unknown History [Vitamin D3 2,000 UNIT CAP] Dicyclomine [Bentyl] 10 mg PO TID 06/06/20 06/06/20 Unknown History Insulin Lispro [Insulin Lispro 10 unit SQ TID 06/06/20 06/06/20 Unknown History Kwikpen U-100] Melatonin [Melatonin 3MG TAB] 6 mg PO QHS 06/06/20 06/06/20 Unknown History Pantoprazole [Protonix TAB] 40 mg PO QDAY 06/06/20 06/06/20 Unknown History Pioglitazone HCl [Actos] 30 mg PO QDAY 06/06/20 06/06/20 Unknown History Pravastatin Sodium [Pravastatin] 10 mg PO QHS 06/06/20 06/06/20 Unknown History allopurinoL [Zyloprim] 100 mg PO QDAY 06/06/20 06/06/20 Unknown History Famotidine [Pepcid] 20 mg PO QDAY #30 tablet 06/17/20 Unknown Rx Cholestyramine (with Sugar) 4 gm PO BID #60 powd.pack 06/23/20 Unknown Rx [Cholestyramine Packet] Loperamide [Imodium] 2 mg PO Q2H PRN #10 capsule 06/23/20 Unknown Rx Metoprolol [Lopressor TAB] 25 mg PO BID #60 tablet 06/23/20 Unknown Rx Tamsulosin [Flomax] 0.4 mg PO QDAY #30 cap 06/23/20 Unknown Rx levoFLOXacin [Levaquin] 750 mg PO QDAY #3 tablet 06/23/20 Unknown Rx metroNIDAZOLE [Flagyl] 500 mg PO Q8HR #9 tablet 06/23/20 Unknown Rx Active Medications: Generic Name Dose Route Start Last Admin Trade Name Freq PRN Reason Stop Dose Admin Acetaminophen 650 mg 06/06/20 15:00 06/24/20 06:09 Acetaminophen 325 Mg Tab PO 650 mg Q6H PRN Administration Pain, Mild (1-3) Albuterol 2.5 mg 06/06/20 15:00 Albuterol 2.5 Mg/3 Ml Nebu IH Q3HRT PRN Shortness Of Breath Allopurinol 100 mg 06/07/20 10:00 06/26/20 09:07 Allopurinol 100 Mg Tab PO 100 mg QDAY YELENA Administration Calcium Carbonate/Glycine 500 mg 06/07/20 10:00 06/26/20 09:07 Calcium Carbonate 500 Mg Tab Chew PO 500 mg QDAY YELENA Administration Cholecalciferol 2,000 unit 06/07/20 10:00 06/26/20 09:08 Cholecalciferol (Vit D3) 1000 Unit (25 Mcg) Tab PO 2,000 unit QDAY YELENA Administration Cholestyramine Resin 4 gm 06/12/20 22:00 06/26/20 09:07 Cholestyramine (With Sugar) 4 Gm Packet PO 4 gm BID YELENA Administration Dicyclomine HCl 10 mg 06/06/20 20:00 06/26/20 09:08 Dicyclomine 10 Mg Cap PO 10 mg TID YELENA Administration Famotidine 20 mg 06/13/20 10:00 06/26/20 09:07 Famotidine 20 Mg Tab PO 20 mg QDAY YELENA Administration Hydrophilic Ointment 1 applic 06/24/20 11:00 06/25/20 07:47 Lip Therapy Vaseline TP 1 applic DIRECT PRN Administration Dry Lips Levofloxacin/Dextrose 750 mg in 150 mls @ 100 mls/hr 06/20/20 16:00 06/24/20 16:49 Levaquin 750mg/150ml IV 06/26/20 15:59 100 mls/hr Q48H YELENA Administration Protocol Metronidazole 500 mg in 100 mls @ 100 mls/hr 06/20/20 18:00 06/26/20 09:06 Flagyl 500 Mg/100 Ml IV 06/27/20 10:59 100 mls/hr Q8H YELENA Administration Protocol Loperamide HCl 2 mg 06/22/20 12:30 06/23/20 21:31 Loperamide 2 Mg Cap PO 2 mg Q2H PRN Administration Diarrhea Magnesium Citrate 300 ml 06/06/20 16:20 Magnesium Citrate 300 Ml Oral Liqd PO QDAY PRN Constipation Metoprolol Tartrate 25 mg 06/09/20 22:00 06/26/20 09:07 Metoprolol Tartrate 25 Mg Tab PO 25 mg BID YELENA Administration Oxycodone/Acetaminophen 1 tab 06/24/20 12:30 06/26/20 09:08 Oxycodone /Acetaminophen 5-325mg Tab PO 1 tab Q4H PRN Administration Pain, Moderate (4-6) Pravastatin Sodium 10 mg 06/06/20 22:00 06/25/20 22:02 Pravastatin 20 Mg Tab PO 10 mg QHS YELENA Administration Sodium Bicarbonate 650 mg 06/16/20 20:00 06/26/20 09:08 Sodium Bicarbonate 650 Mg Tab PO 650 mg TID YELENA Administration Sodium Chloride 10 ml 06/06/20 15:00 06/26/20 09:08 Sodium Chloride 0.9% 10 Ml Flush Syringe IV 10 ml BID YELENA Administration Sodium Chloride 10 ml 06/06/20 15:00 Sodium Chloride 0.9% 10 Ml Flush Syringe IV PRN PRN LINE FLUSH Tamsulosin HCl 0.4 mg 06/14/20 11:00 06/26/20 12:22 Tamsulosin 0.4 Mg Cap PO 0.4 mg QDAY YELENA Administration Zinc Oxide 1 applic 06/25/20 11:00 06/26/20 12:22 Zinc Oxide 20% Oint 28.35 Gm TP 1 applic BID YELENA Administration
[2020-06-26] MEDS: PRAVASTATIN 20 MG TAB PO SCH (22:25)
[2020-06-27] MEDS: metroNIDAZOLE/NS 500 MG/100 ML 500 MG/100 ML BAG IV SCH ×2 (02:04→10:08)
[2020-06-27 08:20] LABS: BUN/Creatinine Ratio 13; Blood Urea Nitrogen 13 mg/dL (9-20); Calcium 7.1 mg/dL (8.4-10.2); Hemolysis Index 18
--- NOTE | 2020-06-27 09:06 | Progress Note ---
Assessment and Plan Assessment and plan: Septic Shock-resolved. Completed antibiotics Metabolic encephalopathy. Resolved Coag negative Staphylococcus 1/4 bottles. Likely contaminant Urinary tract infection. Urine culture showed no growth. Extensive colitis: C. difficile negative. On Levaquin and Flagyl given abnormal CT abdomen. Antidiarrheals Acute hypoxic respiratory failure-improved. Continue oxygen supplementation. Acute kidney injury secondary to vasomotor nephropathy. Nephrology on board Atrial fibrillation with RVR-rate is well controlled. On amiodarone. Cardiology recommendations appreciated. No indication for anticoagulation due to transient history of atrial fibrillation and anemia as per cardiology. Recurrent fevers. Repeat blood cultures negative so far. Resolved Electrolyte abnormalities-Resolved COVID-19 infection-stable. No need for dexamethasone he is not hypoxic. ID following Sacral ulcer-regular turning. Zinc oxide barrier cream PRN Discharge planning. Plan to discharge to skilled facility when accepted - Patient Problems (1) Acute kidney injury (ISAAC) with acute tubular necrosis (ATN) Current Visit: Yes Status: Acute (2) Hyperkalemia Current Visit: Yes Status: Acute (3) Metabolic acidosis Current Visit: Yes Status: Acute (4) Septic shock Current Visit: Yes Status: Acute History Interval history: 80-year-old male who is a resident of assisted living facility with vascular dementia, cerebral sclerosis, debility, diabetes mellitus who presents to the emergency department on 06/06 with complaints of lethargy and diminished cognition as per daughter he developed an episode of unresponsiveness while at breakfast at at his assisted living facility. Patient was found to have a urinary tract infection complicated by sepsis and septic shock, acute kidney injury, toxic metabolic encephalopathy as well as metabolic acidosis. Patient was hypotensive with systolic blood pressures in the 50s and was initiated on vasopressor support in the emergency department. Patient was admitted to the hospital service with consults to nephrology and [facility]. Hospital course 06/07: Patient remains on dopamine, vasopressin and Levophed. Nephrology has started the patient on sodium bicarbonate drip for metabolic acidosis. Infectious disease initiated vancomycin in addition to the cefepime and ordered a C. difficile. 06/08: Patient has gram-positive cocci bacteremia in 1/4 bottles which grew to be coag negative staph coccus and he has repeat blood cultures in progress. Urine culture has no growth to date and he is on IV vancomycin and cefepime. Yesterday we ordered a C. difficile PCR which is pending. Patient had a moment of tachycardia into the 130s and a stat EKG was obtained. Patient was given amiodarone bolus by [facility] and cardiology was consulted. Patient is hyperchloremic today however his metabolic acidosis and BUN/creatinine is slightly improved to 93/3.2 from 100/3.6 and his repeat lactic acid is 1.5. At the time my examination patient was on Levophed at 6, vasopressin 0.03 and dopamine at 6. This morning patient failed his swallow eval and ST evaluation was ordered. Of note patient's echocardiogram shows reduced 15 to 20% with borderline left ventricular hypertrophy. 06/09: This morning his speech evaluation was completed and he has been cleared for mechanical soft diet with thin liquids. Patient complained of right-sided chest pain with radiation to shoulders and a stat EKG cardiac enzymes were order ed. Patient was recultured yesterday and those have no growth to date and his vancomycin was stopped. Infectious disease team recommends removal of Torres catheter when feasible and a CT abdomen/pelvis when stable. Patient has been cleared to transfer to the floor by cardiology and [facility]. 06/10/2020; patient is on IV cefepime for sepsis due to UTI day 3 out of 5. Vancomycin discontinued. Patient is complaining pleuritic chest pain. Patient was evaluated by cardiology for elevated troponin and episode of A. fib on admission. Cardiology discontinued amiodarone and put her on Lopressor. Cardi ology recommend against anticoagulation because of patient's anemia. Hemoglobin this morning was 7.4 and anemia work-up is in progress. I did ordered CT abdomen and pelvis. PT OT evaluation. Patient has ISAAC and nephrology is following. Patient has rectal tube and liquid stool in the bag. I ordered stool for C. difficile. We will continue to monitor. 06/11/2020; patient is on cefepime day 4/5. CT abdomen and pelvis was done and significant for colitis, ischemic colitis is possibility given hypotension and elevated lactic acid level. I will consult GI. Patient has episode of A. fib for less than 24 hours, cardiology was consulted and recommend to be on Lopressor. No need for coagulation because of his anemia. Hemoglobin this morning is improved to 8. Anemia work-up was done, no iron deficiency anemia identified. ISAAC is improving. C. difficile was negative. 06/12/2020; continue cefepime per ID recommendation. CT abdomen and pelvis is significant for ischemic colitis likely due to septic shock, hypotension. Patient was seen by GI and recommend no further intervention at this time. Patient had episode of A. fib on admission for less than 24 hours and cardiology recommend to continue on Lopressor, no anticoagulation needed. Hemoglobin is improving. Patient came from assisted living facility. Patient need Covid test before discharge. ISAAC is improving. Creatinine this morning was 1.7. Nephrology is following. OT evaluated and recommend subacute rehab, PT evalu ation is pending. 06/13: Replace K and Mag, continue to monitor renal fuction, Continue abx per ID, c.diff negative. patient still with Rectal tube and Torres but will re- evaluate for possible discontinuation. Questran started by GI. Will continue to monitor and replace electrolytes Discussed with nursing staff to change torres to condom catheter CM to try and ascertain patients functional status prior to hospitalization 06/14: Patient showing some clinical improvement Torres replaced due to urinary retention about 1000 cc of clear urine removed. Flomax started. PT OT consulted as patient is noted to have been ambulatory prior to this admission will likely need SNF placement. Diarrhea consistency is improving anticipate discharge in 24 to 48 hours once approval is obtained. Cardiology input is noted Lopressor 25 mg p.o. twice daily possible addition of SABIHA inhibitor or ARB when okay with nephrology as regular this is a is improving. At this time no AC for A. fib management due to anemia and the transient nature of the A. fib which was less than 24 hours. 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 Unknown etiology or chronicity of these diagnoses. No current clinical evidence of acutely decompensated HF. Per [place] records, pt saw [place] [facility] in 1998 and underwent LHC which did n ot show any significant findings. Continue with conservative cardiac management given pt's advanced age, dementia and multiple co-morbidities. Recommend pt follow up in our office with Dr. Rosa within 2 weeks of discharge ([phone]). 06/15: Continue supportive care. Will give a unit of PRBC and anticipate discharge today or tomorrow once approval from insurance company obtained. PATIENT will need urology follow up outpatient and also cardiology outpatient. Discussed with patient and Case management Continue PT OT 06/16: Still awaiting prior approval from the insurance company for patient to be discharged. Continue supportive care thrombocytopenia noted again antiplatelets are on hold. We will continue to monitor anticipate discharge once prior authorization is received from insurance company. Continue rehab therapy while in house 06/17: Severe hyperkalemia noted in the setting of renal dysfunction. Will hold discharge. Also patient with intermittent fevers culture still on resolved. Bolus of fluid given will also give some Kayexalate to correct hyperkalemia. 06/18: Still with low-grade fever. White count still normal. Potassium mild hypokalemia. Will monitor closely renal function showing some improvement. If continues to improve we will anticipate discharge tomorrow. Still with elevated troponin but improved compared to prior. No respiratory compromise noted at this time diarrhea still present. Will discuss with ID if patient should empirically be treated with p.o. vancomycin despite negative C. difficile for with Flagyl. 06/19: Considering noted deformity on bilateral shoulders will obtain an x-ray just to ensure that there is no other acute event. I reviewed the chart and not has been done. Continue bicarb drip may need to decrease rate but will defer to wash box operator. Awaiting labs from today. Anticipate discharge in a.m. we will also rule out bilateral upper extremity DVT due to the swelling. 06/20: Patient is a 80-year-old male who presented to the hospital for dialysis related facility with complaints of lethargy diminished cognition diagnosed with septic shock with diarrhea but with C. difficile negative during hospital stay was noted to be cardiac arrhythmia with tachycardia resolved with amiodarone. Was also noted to have ISAAC likely secondary to ATN showed some improvement and stabilized. Diarrhea persisted was managed with fecal management system with ID input noted. Fortunately the past few days has been having recurrent fever today noted to have a distended abdomen although nontender CT abdomen and pelvis with oral contrast was added following clearance from wash box operator. 06/21. Patient seen and examined at bedside this morning. Ultrasound of the upper extremities showed no DVT. He has been advised to elevate right upper extremity to improve swelling. Potassium is very low today he will get potassium replacement. Plan for possible discharge tomorrow. Remained afebrile overnight 06/22. Having electrolyte abnormalities. Repleting. Will repeat levels this PM. On Antibiotics for colitis. Will dc when his electrolytes become stable. 06/23. Plan for discharge today as electrolytes have improved. COVID-19 test was positive so he would not go to [place] as per supportive employment case manager. Plan to search for facilities that will accept him 06/24. Electrolytes have normalized. Awaiting placement 06/25. Complains of pain around the buttock area. Resumed home dose oxycodone yesterday. 06/26. Needs placement. To complete antibiotics tomorrow. 06/27. Pending placement. Continue wound care. Vitals stable Hospitalist Physical - Physical exam Narrative exam: VITAL SIGNS: Reviewed. GENERAL: Awake HEAD: No signs of head trauma. EYES: Pupils are equal. Extraocular motions intact. MOUTH: Oropharynx is normal. NECK: No adenopathy, no JVD. CHEST: Chest with diminished breath sounds bilaterally. No wheezes, rales, or rhonchi. CARDIAC: normal S1 and S2, without murmurs, gallops, or rubs. ABDOMEN: Soft, non tender and non distended. No rebound or guarding, and no masses palpated. Bowel Sounds normal. MUSCULOSKELETAL: No edema NEUROLOGIC EXAM: Alert and oriented x3. No focal neurologic deficits SKIN: No obvious lesions - Constitutional Vitals: Temp Pulse Resp BP Pulse Ox 98.4 F 59 L 16 143/69 100 06/27/20 04:37 06/27/20 04:37 06/27/20 04:37 06/27/20 04:37 06/27/20 04:37 HEART Score - HEART Score Troponin: Troponin T 0.141 ng/mL (0.00-0.029) H* 06/18/20 10:39 Results - Labs CBC & Chem 7: 06/20/20 06:00 06/27/20 07:37 Labs: Laboratory Last Values WBC 4.9 K/mm3 (4.5-11.0) 06/20/20 06:00 RBC 2.48 M/mm3 (3.65-5.03) L 06/20/20 06:00 Hgb 8.1 gm/dl (11.8-15.2) L 06/20/20 06:00 Hct 23.9 % (35.5-45.6) L 06/20/20 06:00 MCV 97 fl (84-94) H 06/20/20 06:00 MCH 33 pg (28-32) H 06/20/20 06:00 MCHC 34 % (32-34) 06/20/20 06:00 RDW 14.0 % (13.2-15.2) 06/20/20 06:00 Plt Count 279 K/mm3 (140-440) 06/20/20 06:00 Lymph % (Auto) 6.8 % (13.4-35.0) L 06/13/20 06:13 [place] % (Auto) 5.0 % (0.0-7.3) 06/13/20 06:13 Eos % (Auto) 1.7 % (0.0-4.3) 06/13/20 06:13 Baso % (Auto) 0.2 % (0.0-1.8) 06/13/20 06:13 Lymph # (Auto) 0.9 K/mm3 (1.2-5.4) L 06/13/20 06:13 [place] # (Auto) 0.7 K/mm3 (0.0-0.8) 06/13/20 06:13 Eos # (Auto) 0.2 K/mm3 (0.0-0.4) 06/13/20 06:13 Baso # (Auto) 0.0 K/mm3 (0.0-0.1) 06/13/20 06:13 Add Manual Diff Complete 06/16/20 12:50 Total Counted 100 06/16/20 12:50 Seg Neutrophils % 86.3 % (40.0-70.0) H 06/13/20 06:13 Seg Neuts % (Manual) 65.0 % (40.0-70.0) 06/16/20 12:50 Band Neutrophils % 20.0 % 06/16/20 12:50 Lymphocytes % (Manual) 6.0 % (13.4-35.0) L 06/16/20 12:50 Reactive Lymphs % (Man) 1.0 % 06/12/20 05:24 Monocytes % (Manual) 9.0 % (0.0-7.3) H 06/16/20 12:50 Eosinophils % (Manual) 2.0 % (0.0-4.3) 06/12/20 05:24 Nucleated RBC % Not Reportable 06/16/20 12:50 Seg Neutrophils # 11.9 K/mm3 (1.8-7.7) H 06/13/20 06:13 Seg Neutrophils # Man 7.2 K/mm3 (1.8-7.7) 06/16/20 12:50 Band Neutrophils # 2.2 K/mm3 06/16/20 12:50 Lymphocytes # (Manual) 0.7 K/mm3 (1.2-5.4) L 06/16/20 12:50 Abs React Lymphs (Man) 0.0 K/mm3 06/16/20 12:50 Monocytes # (Manual) 1.0 K/mm3 (0.0-0.8) H 06/16/20 12:50 Eosinophils # (Manual) 0.0 K/mm3 (0.0-0.4) 06/16/20 12:50 Basophils # (Manual) 0.0 K/mm3 (0.0-0.1) 06/16/20 12:50 Metamyelocytes # 0.0 K/mm3 06/16/20 12:50 Myelocytes # 0.0 K/mm3 06/16/20 12:50 Promyelocytes # 0.0 K/mm3 06/16/20 12:50 Blast Cells # 0.0 K/mm3 06/16/20 12:50 WBC Morphology Not Reportable 06/16/20 12:50 Hypersegmented Neuts Not Reportable 06/16/20 12:50 Hyposegmented Neuts Not Reportable 06/16/20 12:50 Hypogranular Neuts Not Reportable 06/16/20 12:50 Smudge Cells Not Reportable 06/16/20 12:50 Toxic Granulation Not Reportable 06/16/20 12:50 Toxic Vacuolation Not Reportable 06/16/20 12:50 Dohle Bodies Not Reportable 06/16/20 12:50 Pelger-Huet Anomaly Not Reportable 06/16/20 12:50 Denys Rods Not Reportable 06/16/20 12:50 Platelet Estimate Consistent w auto 06/16/20 12:50 Clumped Platelets Rare 06/16/20 12:50 Plt Clumps, EDTA Not Reportable 06/16/20 12:50 Large Platelets Rare 06/16/20 12:50 Giant Platelets Not Reportable 06/16/20 12:50 Platelet Satelliting Not Reportable 06/16/20 12:50 Plt Morphology Comment Not Reportable 06/16/20 12:50 RBC Morphology Normal 06/16/20 12:50 Dimorphic RBCs Not Reportable 06/16/20 12:50 Polychromasia Not Reportable 06/16/20 12:50 Hypochromasia Not Reportable 06/16/20 12:50 Poikilocytosis Not Reportable 06/16/20 12:50 Anisocytosis Not Reportable 06/16/20 12:50 Microcytosis Not Reportable 06/16/20 12:50 Macrocytosis Not Reportable 06/16/20 12:50 Spherocytes Not Reportable 06/16/20 12:50 Pappenheimer Bodies Not Reportable 06/16/20 12:50 Sickle Cells Not Reportable 06/16/20 12:50 Target Cells Not Reportable 06/16/20 12:50 Tear Drop Cells Not Reportable 06/16/20 12:50 Ovalocytes Not Reportable 06/16/20 12:50 Helmet Cells Not Reportable 06/16/20 12:50 [place] Bodies Not Reportable 06/16/20 12:50 [place] Rings Not Reportable 06/16/20 12:50 Dom Cells Not Reportable 06/16/20 12:50 Bite Cells Not Reportable 06/16/20 12:50 Crenated Cell Not Reportable 06/16/20 12:50 Elliptocytes Not Reportable 06/16/20 12:50 Acanthocytes (Spur) Not Reportable 06/16/20 12:50 Rouleaux Not Reportable 06/16/20 12:50 Hemoglobin C Crystals Not Reportable 06/16/20 12:50 Schistocytes Not Reportable 06/16/20 12:50 Malaria parasites Not Reportable 06/16/20 12:50 Chance Bodies Not Reportable 06/16/20 12:50 Hem Pathologist Commnt No 06/16/20 12:50 PT 16.3 Sec. (12.2-14.9) H 06/06/20 10:19 INR 1.33 (0.87-1.13) H 06/06/20 10:19 APTT 31.6 Sec. (24.2-36.6) 06/06/20 10:19 ABG pH 7.329 pH Units (7.350-7.450) L 06/06/20 11:18 ABG pCO2 27.8 mm Hg 06/06/20 11:18 ABG pO2 258.1 mm Hg (80.0-90.0) H 06/06/20 11:18 ABG HCO3 14.3 mmol/L (20.0-26.0) L 06/06/20 11:18 ABG O2 Saturation 99.4 % (95.0-99.0) H 06/06/20 11:18 ABG O2 Content 13.2 (0.0-44) 06/06/20 11:18 ABG Base Excess -10.5 mmol/L (-2.0-3.0) L 06/06/20 11:18 ABG Hemoglobin 9.1 gm/dl (14.0-18.0) L 06/06/20 11:18 ABG Carboxyhemoglobin 1.3 % (0.0-5.0) 06/06/20 11:18 ABG Methemoglobin Not Reportable 06/06/20 11:18 VBG pH 7.438 (7.320-7.420) H 06/06/20 10:19 Oxyhemoglobin 98.2 % (95.0-99.0) 06/06/20 11:18 FiO2 21 % 06/06/20 11:18 Sodium 135 mmol/L (137-145) L 06/27/20 07:37 Potassium 4.2 mmol/L (3.6-5.0) 06/27/20 07:37 Chloride 108.1 mmol/L (98-107) H 06/27/20 07:37 Carbon Dioxide 22 mmol/L (22-30) 06/27/20 07:37 Anion Gap 9 mmol/L 06/27/20 07:37 BUN 13 mg/dL (9-20) 06/27/20 07:37 Creatinine 1.0 mg/dL (0.8-1.3) 06/27/20 07:37 Estimated GFR > 60 ml/min 06/27/20 07:37 BUN/Creatinine Ratio 13 % 06/27/20 07:37 Glucose 78 mg/dL (75-100) 06/27/20 07:37 POC Glucose 98 mg/dL (70-105) 06/26/20 21:39 Lactic Acid 1.50 mmol/L (0.7-2.0) 06/08/20 05:15 Calcium 7.1 mg/dL (8.4-10.2) L 06/27/20 07:37 Phosphorus 2.50 mg/dL (2.5-4.5) 06/24/20 08:29 Magnesium 1.80 mg/dL (1.7-2.3) 06/24/20 08:29 Iron 54 ug/dL (49-181) 06/10/20 10:44 TIBC 157 mcg/dL (250-450) L 06/10/20 10:44 Ferritin 569.5 ng/mL (30.0-300.0) H 06/10/20 10:44 Total Bilirubin 0.20 mg/dL (0.1-1.2) 06/14/20 05:23 AST 19 units/L (5-40) 06/14/20 05:23 ALT 20 units/L (7-56) 06/14/20 05:23 Alkaline Phosphatase 55 units/L (35-129) 06/14/20 05:23 Ammonia 64.0 umol/L (25-60) H 06/06/20 10:19 Total Creatine Kinase 1212 units/L (55-170) H 06/09/20 12:57 CK-MB (CK-2) 12.1 ng/mL (0.0-4.0) H 06/09/20 12:57 CK-MB (CK-2) Rel Index 0.9 (0-4) 06/09/20 12:57 Troponin T 0.141 ng/mL (0.00-0.029) H* 06/18/20 10:39 Total Protein 4.9 g/dL (6.3-8.2) L 06/14/20 05:23 Albumin 2.4 g/dL (3.9-5) L 06/14/20 05:23 Albumin/Globulin Ratio 1.0 % 06/14/20 05:23 Triglycerides 103 mg/dL (2-149) 06/06/20 10:19 Cholesterol 84 mg/dL (50-199) 06/06/20 10:19 LDL Cholesterol Direct 28 mg/dL (50-130) L 06/06/20 10:19 HDL Cholesterol 44 mg/dL (40-59) 06/06/20 10:19 Cholesterol/HDL Ratio 1.90 % 06/06/20 10:19 Vitamin B12 1170 pg/mL (211-911) H 06/10/20 14:49 RBC Folic Acid 829 ng/mL (>280) 06/10/20 10:44 TSH 4.440 mlU/mL (0.270-4.200) H 06/06/20 10:19 Free T4 1.55 ng/dL (0.76-1.46) H 06/06/20 10:19 PTH Intact 271.9 pg/mL (15-65) H 06/08/20 05:15 Urine Color Yellow (Yellow) 06/06/20 14:02 Urine Turbidity Cloudy (Clear) 06/06/20 14:02 Urine pH 6.0 (5.0-7.0) 06/06/20 14:02 Ur Specific [place] 1.013 (1.003-1.030) 06/06/20 14:02 Urine Protein 100 mg/dl mg/dL (Negative) 06/06/20 14:02 Urine Glucose (UA) Neg mg/dL (Negative) 06/06/20 14:02 Urine Ketones Neg mg/dL (Negative) 06/06/20 14:02 Urine Blood Sm (Negative) 06/06/20 14:02 Urine Nitrite Neg (Negative) 06/06/20 14:02 Urine Bilirubin Neg (Negative) 06/06/20 14:02 Urine Urobilinogen < 2.0 mg/dL (<2.0) 06/06/20 14:02 Ur Leukocyte Esterase Lg (Negative) 06/06/20 14:02 Urine WBC (Auto) > 182.0 /HPF (0.0-6.0) H 06/06/20 14:02 Urine RBC (Auto) 55.0 /HPF (0.0-6.0) 06/06/20 14:02 U Epithel Cells (Auto) 1.0 /HPF (0-13.0) 06/06/20 14:02 Urine WBC Clumps 2+ /HPF 06/06/20 14:02 Urine Creatinine 57.0 mg/dL (0.1-20.0) H 06/06/20 21:05 Urine Sodium 85 mmol/L 06/06/20 21:05 Random Vancomycin 9.8 ug/mL (0-40.0) 06/09/20 04:30 Urine Opiates Screen Presumptive negative 06/06/20 14:02 Urine Methadone Screen Presumptive negative 06/06/20 14:02 Ur Barbiturates Screen Presumptive negative 06/06/20 14:02 Ur Phencyclidine Scrn Presumptive negative 06/06/20 14:02 Ur Amphetamines Screen Presumptive negative 06/06/20 14:02 U Benzodiazepines Scrn Presumptive negative 06/06/20 14:02 Urine Cocaine Screen Presumptive negative 06/06/20 14:02 U Marijuana (THC) Screen Presumptive negative 06/06/20 14:02 Drugs of Abuse Note Disclamer 06/06/20 14:02 Plasma/Serum Alcohol < 0.01 % (0-0.07) 06/06/20 10:19 C. difficile Tox (PCR) Negative (Negative) 06/08/20 Unknown Coronavirus (PCR) Positive (Negative) A 06/22/20 10:00 Blood Type O POSITIVE 06/15/20 11:00 Antibody Screen Negative 06/15/20 11:00 Crossmatch See Detail 06/15/20 11:00 Torres/IV: Voiding Method Condom Catheter Active Medications - Current Medications Current Medications: Generic Name Dose Route Start Last Admin Trade Name Freq PRN Reason Stop Dose Admin Acetaminophen 650 mg 06/06/20 15:00 06/24/20 06:09 Acetaminophen 325 Mg Tab PO 650 mg Q6H PRN Administration Pain, Mild (1-3) Albuterol 2.5 mg 06/06/20 15:00 Albuterol 2.5 Mg/3 Ml Nebu IH Q3HRT PRN Shortness Of Breath Allopurinol 100 mg 06/07/20 10:00 06/26/20 09:07 Allopurinol 100 Mg Tab PO 100 mg QDAY YELENA Administration Calcium Carbonate/Glycine 500 mg 06/07/20 10:00 06/26/20 09:07 Calcium Carbonate 500 Mg Tab Chew PO 500 mg QDAY YELENA Administration Cholecalciferol 2,000 unit 06/07/20 10:00 06/26/20 09:08 Cholecalciferol (Vit D3) 1000 Unit (25 Mcg) Tab PO 2,000 unit QDAY YELENA Administration Cholestyramine Resin 4 gm 06/12/20 22:00 06/26/20 22:25 Cholestyramine (With Sugar) 4 Gm Packet PO 4 gm BID YELENA Administration Dicyclomine HCl 10 mg 06/06/20 20:00 06/26/20 20:26 Dicyclomine 10 Mg Cap PO 10 mg TID YELENA Administration Famotidine 20 mg 06/13/20 10:00 06/26/20 09:07 Famotidine 20 Mg Tab PO 20 mg QDAY YELENA Administration Hydrophilic Ointment 1 applic 06/24/20 11:00 06/25/20 07:47 Lip Therapy Vaseline TP 1 applic DIRECT PRN Administration Dry Lips Metronidazole 500 mg in 100 mls @ 100 mls/hr 06/20/20 18:00 06/27/20 02:04 Flagyl 500 Mg/100 Ml IV 06/27/20 10:59 100 mls/hr Q8H YELENA Administration Protocol Loperamide HCl 2 mg 06/22/20 12:30 06/23/20 21:31 Loperamide 2 Mg Cap PO 2 mg Q2H PRN Administration Diarrhea Magnesium Citrate 300 ml 06/06/20 16:20 Magnesium Citrate 300 Ml Oral Liqd PO QDAY PRN Constipation Metoprolol Tartrate 25 mg 06/09/20 22:00 06/26/20 22:25 Metoprolol Tartrate 25 Mg Tab PO 25 mg BID YELENA Administration Oxycodone/Acetaminophen 1 tab 06/24/20 12:30 06/26/20 16:57 Oxycodone /Acetaminophen 5-325mg Tab PO 1 tab Q4H PRN Administration Pain, Moderate (4-6) Pravastatin Sodium 10 mg 06/06/20 22:00 06/26/20 22:25 Pravastatin 20 Mg Tab PO 10 mg QHS YELENA Administration Sodium Bicarbonate 650 mg 06/16/20 20:00 06/26/20 20:26 Sodium Bicarbonate 650 Mg Tab PO 650 mg TID YELENA Administration Sodium Chloride 10 ml 06/06/20 15:00 06/26/20 22:26 Sodium Chloride 0.9% 10 Ml Flush Syringe IV 10 ml BID YELENA Administration Sodium Chloride 10 ml 06/06/20 15:00 Sodium Chloride 0.9% 10 Ml Flush Syringe IV PRN PRN LINE FLUSH Tamsulosin HCl 0.4 mg 06/14/20 11:00 06/26/20 12:22 Tamsulosin 0.4 Mg Cap PO 0.4 mg QDAY YELENA Administration Zinc Oxide 1 applic 06/25/20 11:00 06/26/20 22:00 Zinc Oxide 20% Oint 28.35 Gm TP 1 applic BID YELENA Administration Nutrition/Malnutrition Assess - Dietary Evaluation Nutrition/Malnutrition Findings: Nutrition Notes Start: 06/08/20 11:43 Freq: Status: Active Protocol: Document 06/26/20 08:04 CW (Rec: 06/26/20 08:20 CW [id number]) Nutrition Notes Need for Assessment generated from: MD Order Current Diagnosis Acute Kidney Injury,Diabetes, Hypertension Other Pertinent Diagnosis AMS, Dementia, UTI, metabolic encephalopathy, ?s/p CVA? Current Diet Mechanical soft diet + ONS BID Labs/Tests 06/26/2019 Na 135 K 4.7 BG 64 Pertinent Medications reviewed Height 5 ft 8 in Weight 87.2 kg [place] Body Weight (kg) 70.00 BMI 29.2 Weight Status Overweight Subjective/Other Information MD consult for dietary supplements. Updated diet order to provide ensure clear TID. Intake continues to be very low; <25% x7 days. recommend appetite stimulant or alternate feeding method based on POC Percent of energy/protein needs met: 27%/33% Burn Absent Trauma Absent Difficulty In Swallowing Skin Integrity/Comment Stage 1 pressure ulcer Current % PO Negligible Minimum of two criteria Yes Energy Intake (severe) < or equal to 50% Estimated Energy Requirement > or equal to 5 days Fluid Accumulation Mild (non-severe) Reduced Stereoptic Projection Topographer Strength Measurably Reduced (severe) #3 Nutrition Diagnosis Malnutrition Etiology lack of appetite As Evidenced by Signs and Symptoms bilateral weak girp strength, <50% of intake of energy needs x 7 days, nonpitting edema #2 Nutrition Diagnosis Increased nutrient needs ( specify in comment below) Diagnosis Progress(for reassessment Continues documentation) #1 Nutrition Diagnosis Inadequate oral intake As Evidenced by Signs and Symptoms Pt eating 0% of meals and drinking 33% of ONS Diagnosis Progress(for reassessment Worsened documentation) Is patient on ventilator? No Is Patient Ambulatory and/or Out of Bed Yes REE-([place]-St. Jeor-ambulatory/OOB) [ 2028. [id number].[id number]] Calculation Used for Recommendations [place] Jeor Additional Notes protein needs: 104 - 131g (1. 2 - 1.5g/kgBW for ISAAC) fluid needs: 1 ml/kcal Nutrition Intervention Change Diet Order: Continue Mechanical Soft Diet and ONS Add Supplement/Snack (indicate name/kcal Ensure Clear TID /protein ) Provides kCal: 720 Provides Protein (gm) 24 Goal #1 Meet at least 75% of kcal and proteins via PO and ONS Goal #2 wound healing Anticipated Discharge Needs: Mechanical Soft diet + ONS PRN Follow-Up By: 06/28/20 Additional Comments F/U intakes and ONS tolerance; POC
--- NOTE | 2020-06-27 09:39 | Progress Note ---
Assessment and Plan 1. Acute kidney injury: Vasomotor ISAAC in the setting of shock. Renal US negative for hydro. Monitor renal function. Creatinine level is better. Avoid nephrotoxic agents. Meds dosage based on GFR. 2. FEN: Hypernatremia, improved. Hypokalemia, improved, monitor. Metabolic acidosis, improved. Monitor volume status and lytes. 3. Sepsis with shock: Resolved, s/p abx. 4. UTI: S/p Abx. 5. Acute hypoxemic respiratory failure: CXR clear. Initial COVID test negative. Repeat Covid test positive. On RA. 6. Colitis: C.diff negative. 7. Metabolic encephalopathy: Monitor. 8. H/o Dementia: Supportive care. 9. H/o HTN: Monitor BP. 10. Anemia, POA: Monitor. Subjective: Patient was seen and examined at the bedside. No new complaint. Objective: General appearance: well-developed, appears stated age, not in distress HEENT: ATNC Neck: trachea midline Respiratory: ctab Heart: regular, S1S2, no murmur Gastrointestinal: soft, normoactive bowel sounds, not tender Integumentary: sacral wound noted Ext: R UE edema Neurologic: alert, conversing, able to move extremities : Hair catheter Subjective Date of service: 06/27/20 Principal diagnosis: shock Objective - Vital Signs Vital signs: Vital Signs - 12hr 06/26/20 06/26/20 06/26/20 21:42 22:00 22:25 Temperature 98.6 F Pulse Rate 66 67 Respiratory 16 Rate Respiratory 18 Rate [Bilateral Sacrum] Blood Pressure 135/66 135/66 O2 Sat by Pulse 98 97 Oximetry 06/27/20 04:37 Temperature 98.4 F Pulse Rate 59 L Respiratory 16 Rate Respiratory Rate [Bilateral Sacrum] Blood Pressure 143/69 O2 Sat by Pulse 100 Oximetry - Lab 06/20/20 06:00 06/27/20 07:37 Most recent lab results ABG pH 7.329 pH Units (7.350-7.450) L 06/06/20 11:18 ABG pCO2 27.8 mm Hg 06/06/20 11:18 ABG pO2 258.1 mm Hg (80.0-90.0) H 06/06/20 11:18 ABG HCO3 14.3 mmol/L (20.0-26.0) L 06/06/20 11:18 ABG O2 Saturation 99.4 % (95.0-99.0) H 06/06/20 11:18 Calcium 7.1 mg/dL (8.4-10.2) L 06/27/20 07:37 Phosphorus 2.50 mg/dL (2.5-4.5) 06/24/20 08:29 Magnesium 1.80 mg/dL (1.7-2.3) 06/24/20 08:29 Urine Creatinine 57.0 mg/dL (0.1-20.0) H 06/06/20 21:05 Urine Sodium 85 mmol/L 06/06/20 21:05 Medications & Allergies - Medications Allergies/Adverse Reactions: Allergies No Known Allergies Allergy (Verified 06/06/20 15:21) Home Medications: Home Medications Medication Instructions Recorded Confirmed Last Taken Type Amlodipine Besylate [Norvasc] 5 mg PO QDAY 06/06/20 06/06/20 Unknown History Calcium Carb/Magnesium Hydrox 500 mg PO QDAY 06/06/20 06/06/20 Unknown History [Antacid 1000-200 mg Tab Chew] Cholecalciferol (Vitamin D3) 2,000 unit PO QDAY 06/06/20 06/06/20 Unknown History [Vitamin D3 2,000 UNIT CAP] Dicyclomine [Bentyl] 10 mg PO TID 06/06/20 06/06/20 Unknown History Insulin Lispro [Insulin Lispro 10 unit SQ TID 06/06/20 06/06/20 Unknown History Kwikpen U-100] Melatonin [Melatonin 3MG TAB] 6 mg PO QHS 06/06/20 06/06/20 Unknown History Pantoprazole [Protonix TAB] 40 mg PO QDAY 06/06/20 06/06/20 Unknown History Pioglitazone HCl [Actos] 30 mg PO QDAY 06/06/20 06/06/20 Unknown History Pravastatin Sodium [Pravastatin] 10 mg PO QHS 06/06/20 06/06/20 Unknown History allopurinoL [Zyloprim] 100 mg PO QDAY 06/06/20 06/06/20 Unknown History Famotidine [Pepcid] 20 mg PO QDAY #30 tablet 06/17/20 Unknown Rx Cholestyramine (with Sugar) 4 gm PO BID #60 powd.pack 06/23/20 Unknown Rx [Cholestyramine Packet] Loperamide [Imodium] 2 mg PO Q2H PRN #10 capsule 06/23/20 Unknown Rx Metoprolol [Lopressor TAB] 25 mg PO BID #60 tablet 06/23/20 Unknown Rx Tamsulosin [Flomax] 0.4 mg PO QDAY #30 cap 06/23/20 Unknown Rx levoFLOXacin [Levaquin] 750 mg PO QDAY #3 tablet 06/23/20 Unknown Rx metroNIDAZOLE [Flagyl] 500 mg PO Q8HR #9 tablet 06/23/20 Unknown Rx Active Medications: Generic Name Dose Route Start Last Admin Trade Name Freq PRN Reason Stop Dose Admin Acetaminophen 650 mg 06/06/20 15:00 06/24/20 06:09 Acetaminophen 325 Mg Tab PO 650 mg Q6H PRN Administration Pain, Mild (1-3) Albuterol 2.5 mg 06/06/20 15:00 Albuterol 2.5 Mg/3 Ml Nebu IH Q3HRT PRN Shortness Of Breath Allopurinol 100 mg 06/07/20 10:00 06/26/20 09:07 Allopurinol 100 Mg Tab PO 100 mg QDAY YELENA Administration Calcium Carbonate/Glycine 500 mg 06/07/20 10:00 06/26/20 09:07 Calcium Carbonate 500 Mg Tab Chew PO 500 mg QDAY YELENA Administration Cholecalciferol 2,000 unit 06/07/20 10:00 06/26/20 09:08 Cholecalciferol (Vit D3) 1000 Unit (25 Mcg) Tab PO 2,000 unit QDAY YELENA Administration Cholestyramine Resin 4 gm 06/12/20 22:00 06/26/20 22:25 Cholestyramine (With Sugar) 4 Gm Packet PO 4 gm BID YELENA Administration Dicyclomine HCl 10 mg 06/06/20 20:00 06/26/20 20:26 Dicyclomine 10 Mg Cap PO 10 mg TID YELENA Administration Famotidine 20 mg 06/13/20 10:00 06/26/20 09:07 Famotidine 20 Mg Tab PO 20 mg QDAY YELENA Administration Hydrophilic Ointment 1 applic 06/24/20 11:00 06/25/20 07:47 Lip Therapy Vaseline TP 1 applic DIRECT PRN Administration Dry Lips Metronidazole 500 mg in 100 mls @ 100 mls/hr 06/20/20 18:00 06/27/20 02:04 Flagyl 500 Mg/100 Ml IV 06/27/20 10:59 100 mls/hr Q8H YELENA Administration Protocol Loperamide HCl 2 mg 06/22/20 12:30 06/23/20 21:31 Loperamide 2 Mg Cap PO 2 mg Q2H PRN Administration Diarrhea Magnesium Citrate 300 ml 06/06/20 16:20 Magnesium Citrate 300 Ml Oral Liqd PO QDAY PRN Constipation Metoprolol Tartrate 25 mg 06/09/20 22:00 06/26/20 22:25 Metoprolol Tartrate 25 Mg Tab PO 25 mg BID YELENA Administration Oxycodone/Acetaminophen 1 tab 06/24/20 12:30 06/26/20 16:57 Oxycodone /Acetaminophen 5-325mg Tab PO 1 tab Q4H PRN Administration Pain, Moderate (4-6) Pravastatin Sodium 10 mg 06/06/20 22:00 06/26/20 22:25 Pravastatin 20 Mg Tab PO 10 mg QHS YELENA Administration Sodium Bicarbonate 650 mg 06/16/20 20:00 06/26/20 20:26 Sodium Bicarbonate 650 Mg Tab PO 650 mg TID YELENA Administration Sodium Chloride 10 ml 06/06/20 15:00 06/26/20 22:26 Sodium Chloride 0.9% 10 Ml Flush Syringe IV 10 ml BID YELENA Administration Sodium Chloride 10 ml 06/06/20 15:00 Sodium Chloride 0.9% 10 Ml Flush Syringe IV PRN PRN LINE FLUSH Tamsulosin HCl 0.4 mg 06/14/20 11:00 06/26/20 12:22 Tamsulosin 0.4 Mg Cap PO 0.4 mg QDAY YELENA Administration Zinc Oxide 1 applic 06/25/20 11:00 06/26/20 22:00 Zinc Oxide 20% Oint 28.35 Gm TP 1 applic BID YELENA Administration
[2020-06-27] MEDS: CALCIUM CARBONATE 500 MG TAB CHEW PO SCH (10:07)
[2020-06-27] MEDS: TAMSULOSIN 0.4 MG CAP PO SCH (10:09)
[2020-06-27] MEDS: SODIUM BICARBONATE 650 MG TAB PO SCH ×3 (10:09→22:19)
[2020-06-27] MEDS: allopurinoL 100 MG TAB PO SCH (10:10)
[2020-06-27] MEDS: FAMOTIDINE 20 MG TAB PO SCH (10:10)
[2020-06-27] MEDS: DICYCLOMINE 10 MG CAP PO SCH ×3 (10:10→22:17)
[2020-06-27] MEDS: CHOLECALCIFEROL (VIT D3) 1000 UNIT (25 mcg) TAB PO SCH (10:10)
[2020-06-27] MEDS: METOPROLOL TARTRATE 25 MG TAB PO SCH ×2 (10:11→22:26)
[2020-06-27] MEDS: CHOLESTYRAMINE (WITH SUGAR) 4 GM PACKET PO SCH ×2 (10:11→22:19)
[2020-06-27] MEDS: LOPERAMIDE 2 MG CAP PO PRN (10:12)
[2020-06-27] MEDS: oxyCODONE /ACETAMINOPHEN 5-325MG TAB PO PRN ×2 (10:12→14:33)
[2020-06-27] MEDS: ZINC OXIDE 20% OINT 28.35 GM TP SCH ×2 (10:12→22:23)
[2020-06-27] MEDS ORDERED: LIP THERAPY VASELINE TP PRN (10:34)
[2020-06-27] MEDS: PRAVASTATIN 20 MG TAB PO SCH (22:17)
[2020-06-28] MEDS: oxyCODONE /ACETAMINOPHEN 5-325MG TAB PO PRN (04:18)
[2020-06-28] MEDS: DICYCLOMINE 10 MG CAP PO SCH ×2 (09:02→21:11)
[2020-06-28] MEDS: CHOLECALCIFEROL (VIT D3) 1000 UNIT (25 mcg) TAB PO SCH (09:03)
[2020-06-28] MEDS: FAMOTIDINE 20 MG TAB PO SCH (09:03)
[2020-06-28] MEDS: allopurinoL 100 MG TAB PO SCH (09:03)
[2020-06-28] MEDS: SODIUM BICARBONATE 650 MG TAB PO SCH ×2 (09:03→21:12)
[2020-06-28] MEDS: CHOLESTYRAMINE (WITH SUGAR) 4 GM PACKET PO SCH ×2 (09:04→21:12)
[2020-06-28] MEDS: METOPROLOL TARTRATE 25 MG TAB PO SCH ×2 (09:04→21:11)
[2020-06-28] MEDS: TAMSULOSIN 0.4 MG CAP PO SCH (09:04)
[2020-06-28] MEDS: CALCIUM CARBONATE 500 MG TAB CHEW PO SCH (09:05)
[2020-06-28] MEDS: ZINC OXIDE 20% OINT 28.35 GM TP SCH ×2 (09:06→21:13)
--- NOTE | 2020-06-28 12:37 | Progress Note ---
Assessment and Plan 1. Acute kidney injury: Vasomotor ISAAC in the setting of shock. Renal US negative for hydro. Monitor renal function. Creatinine level is better. Avoid nephrotoxic agents. Meds dosage based on GFR. 2. FEN: Hypernatremia, improved. Hypokalemia, improved, monitor. Metabolic acidosis, improved. Edema, IV Lasix. Monitor volume status and lytes. 3. Sepsis with shock: Resolved, s/p abx. 4. UTI: S/p Abx. 5. Acute hypoxemic respiratory failure: CXR clear. Initial COVID test negative. Repeat Covid test positive. On RA. 6. Colitis: C.diff negative. 7. Metabolic encephalopathy: Monitor. 8. H/o Dementia: Supportive care. 9. H/o HTN: Monitor BP. 10. Anemia, POA: Monitor. Subjective: Patient was seen and examined at the bedside. C/o swelling of extremities. Objective: General appearance: well-developed, appears stated age, not in distress HEENT: ATNC Neck: trachea midline Respiratory: ctab Heart: regular, S1S2, no murmur Gastrointestinal: soft, normoactive bowel sounds, not tender Integumentary: sacral wound noted Ext: extremity edema Neurologic: alert, conversing, able to move extremities : Hair catheter Subjective Date of service: 06/28/20 Principal diagnosis: shock Objective - Vital Signs Vital signs: Vital Signs - 12hr 06/28/20 06/28/20 06/28/20 06:08 09:04 11:55 Temperature 98.6 F 98.3 F Pulse Rate 69 72 Respiratory 18 18 Rate Blood Pressure 145/52 140/68 163/60 O2 Sat by Pulse 99 100 Oximetry - Lab 06/20/20 06:00 06/27/20 07:37 Most recent lab results ABG pH 7.329 pH Units (7.350-7.450) L 06/06/20 11:18 ABG pCO2 27.8 mm Hg 06/06/20 11:18 ABG pO2 258.1 mm Hg (80.0-90.0) H 06/06/20 11:18 ABG HCO3 14.3 mmol/L (20.0-26.0) L 06/06/20 11:18 ABG O2 Saturation 99.4 % (95.0-99.0) H 06/06/20 11:18 Calcium 7.1 mg/dL (8.4-10.2) L 06/27/20 07:37 Phosphorus 2.50 mg/dL (2.5-4.5) 06/24/20 08:29 Magnesium 1.80 mg/dL (1.7-2.3) 06/24/20 08:29 Urine Creatinine 57.0 mg/dL (0.1-20.0) H 06/06/20 21:05 Urine Sodium 85 mmol/L 06/06/20 21:05 Medications & Allergies - Medications Allergies/Adverse Reactions: Allergies No Known Allergies Allergy (Verified 06/06/20 15:21) Home Medications: Home Medications Medication Instructions Recorded Confirmed Last Taken Type Amlodipine Besylate [Norvasc] 5 mg PO QDAY 06/06/20 06/06/20 Unknown History Calcium Carb/Magnesium Hydrox 500 mg PO QDAY 06/06/20 06/06/20 Unknown History [Antacid 1000-200 mg Tab Chew] Cholecalciferol (Vitamin D3) 2,000 unit PO QDAY 06/06/20 06/06/20 Unknown History [Vitamin D3 2,000 UNIT CAP] Dicyclomine [Bentyl] 10 mg PO TID 06/06/20 06/06/20 Unknown History Insulin Lispro [Insulin Lispro 10 unit SQ TID 06/06/20 06/06/20 Unknown History Kwikpen U-100] Melatonin [Melatonin 3MG TAB] 6 mg PO QHS 06/06/20 06/06/20 Unknown History Pantoprazole [Protonix TAB] 40 mg PO QDAY 06/06/20 06/06/20 Unknown History Pioglitazone HCl [Actos] 30 mg PO QDAY 06/06/20 06/06/20 Unknown History Pravastatin Sodium [Pravastatin] 10 mg PO QHS 06/06/20 06/06/20 Unknown History allopurinoL [Zyloprim] 100 mg PO QDAY 06/06/20 06/06/20 Unknown History Famotidine [Pepcid] 20 mg PO QDAY #30 tablet 06/17/20 Unknown Rx Cholestyramine (with Sugar) 4 gm PO BID #60 powd.pack 06/23/20 Unknown Rx [Cholestyramine Packet] Loperamide [Imodium] 2 mg PO Q2H PRN #10 capsule 06/23/20 Unknown Rx Metoprolol [Lopressor TAB] 25 mg PO BID #60 tablet 06/23/20 Unknown Rx Tamsulosin [Flomax] 0.4 mg PO QDAY #30 cap 06/23/20 Unknown Rx levoFLOXacin [Levaquin] 750 mg PO QDAY #3 tablet 06/23/20 Unknown Rx metroNIDAZOLE [Flagyl] 500 mg PO Q8HR #9 tablet 06/23/20 Unknown Rx Active Medications: Generic Name Dose Route Start Last Admin Trade Name Freq PRN Reason Stop Dose Admin Acetaminophen 650 mg 06/06/20 15:00 06/24/20 06:09 Acetaminophen 325 Mg Tab PO 650 mg Q6H PRN Administration Pain, Mild (1-3) Albuterol 2.5 mg 06/06/20 15:00 Albuterol 2.5 Mg/3 Ml Nebu IH Q3HRT PRN Shortness Of Breath Allopurinol 100 mg 06/07/20 10:00 06/28/20 09:03 Allopurinol 100 Mg Tab PO 100 mg QDAY YELENA Administration Calcium Carbonate/Glycine 500 mg 06/07/20 10:00 06/28/20 09:05 Calcium Carbonate 500 Mg Tab Chew PO 500 mg QDAY YELENA Administration Cholecalciferol 2,000 unit 06/07/20 10:00 06/28/20 09:03 Cholecalciferol (Vit D3) 1000 Unit (25 Mcg) Tab PO 2,000 unit QDAY YELENA Administration Cholestyramine Resin 4 gm 06/12/20 22:00 06/28/20 09:04 Cholestyramine (With Sugar) 4 Gm Packet PO 4 gm BID YELENA Administration Dicyclomine HCl 10 mg 06/06/20 20:00 06/28/20 09:02 Dicyclomine 10 Mg Cap PO 10 mg TID YELENA Administration Famotidine 20 mg 06/13/20 10:00 06/28/20 09:03 Famotidine 20 Mg Tab PO 20 mg QDAY YELENA Administration Hydrophilic Ointment 1 applic 06/24/20 11:00 06/25/20 07:47 Lip Therapy Vaseline TP 1 applic DIRECT PRN Administration Dry Lips Loperamide HCl 2 mg 06/22/20 12:30 06/27/20 10:12 Loperamide 2 Mg Cap PO 2 mg Q2H PRN Administration Diarrhea Magnesium Citrate 300 ml 06/06/20 16:20 Magnesium Citrate 300 Ml Oral Liqd PO QDAY PRN Constipation Metoprolol Tartrate 25 mg 06/09/20 22:00 06/28/20 09:04 Metoprolol Tartrate 25 Mg Tab PO 25 mg BID YELENA Administration Oxycodone/Acetaminophen 1 tab 06/24/20 12:30 06/28/20 04:18 Oxycodone /Acetaminophen 5-325mg Tab PO 1 tab Q4H PRN Administration Pain, Moderate (4-6) Pravastatin Sodium 10 mg 06/06/20 22:00 06/27/20 22:17 Pravastatin 20 Mg Tab PO 10 mg QHS YELENA Administration Sodium Bicarbonate 650 mg 06/16/20 20:00 06/28/20 09:03 Sodium Bicarbonate 650 Mg Tab PO 650 mg TID YELENA Administration Sodium Chloride 10 ml 06/06/20 15:00 06/28/20 09:05 Sodium Chloride 0.9% 10 Ml Flush Syringe IV 10 ml BID YELENA Administration Sodium Chloride 10 ml 06/06/20 15:00 Sodium Chloride 0.9% 10 Ml Flush Syringe IV PRN PRN LINE FLUSH Tamsulosin HCl 0.4 mg 06/14/20 11:00 06/28/20 09:04 Tamsulosin 0.4 Mg Cap PO 0.4 mg QDAY YELENA Administration Zinc Oxide 1 applic 06/25/20 11:00 06/28/20 09:06 Zinc Oxide 20% Oint 28.35 Gm TP 1 applic BID YELENA Administration
--- NOTE | 2020-06-28 12:38 | Progress Note ---
Assessment and Plan Assessment and plan: 80-year-old male who is a resident of assisted living facility with vascular dementia, cerebral sclerosis, debility, diabetes mellitus who presents to the emergency department on 06/06 with complaints of lethargy and diminished cognition as per daughter he developed an episode of unresponsiveness while at breakfast at at his assisted living facility. Patient was found to have a urinary tract infection complicated by sepsis and septic shock, acute kidney injury, toxic metabolic encephalopathy as well as metabolic acidosis. Patient was hypotensive with systolic blood pressures in the 50s and was initiated on vasopressor support in the emergency department. Patient was admitted to the hospital serv ice with consults to nephrology and [facility]. Hospital course 06/07: Patient remains on dopamine, vasopressin and Levophed. Nephrology has started the patient on sodium bicarbonate drip for metabolic acidosis. Infectious disease initiated vancomycin in addition to the cefepime and ordered a C. difficile. 06/08: Patient has gram-positive cocci bacteremia in 03/07 bottles which grew to be coag negative staph coccus and he has repeat blood cultures in progress. Urine culture has no growth to date and he is on IV vancomycin and cefepime. Yesterday we ordered a C. difficile PCR which is pending. Patient had a moment of tachycardia into the 130s and a stat EKG was obtained. Patient was given amiodarone bolus by [facility] and cardiology was consulted. Patient is hyperchloremic today however his metabolic acidosis and BUN/creatinine is slightly improved to 93/3.2 from 100/3.6 and his repeat lactic acid is 1.5. At the time my examination patient was on Levophed at 6, vasopressin 0.03 and dopamine at 6. This morning patient failed his swallow eval and ST evaluation was ordered. Of note patient's echocardiogram shows reduced 15 to 20% with borderline left ventricular hypertrophy. 06/09: This morning his speech evaluation was completed and he has been cleared for mechanical soft diet with thin liquids. Patient complained of right-sided chest pain with radiation to shoulders and a stat EKG cardiac enzymes were ordered. Patient was recultured yesterday and those have no growth to date and his vancomycin was stopped. Infectious disease team recommends removal of Torres catheter when feasible and a CT abdomen/pelvis when stable. Patient has been cleared to transfer to the floor by cardiology and [facility]. 06/10/2020; patient is on IV cefepime for sepsis due to UTI day 3 out of 5. Vancomycin discontinued. Patient is complaining pleuritic chest pain. Patient was evaluated by cardiology for elevated troponin and episode of A. fib on admission. Cardiology discontinued amiodarone and put her on Lopressor. Cardiology recommend against anticoagulation because of patient's anemia. Hemoglobin this morning was 7.4 and anemia work-up is in progress. I did ordered CT abdomen and pelvis. PT OT evaluation. Patient has ISAAC and nephrology is following. Patient has rectal tube and liquid stool in the bag. I ordered stool for C. difficile. We will continue to monitor. 06/11/2020; patient is on cefepime day /. CT abdomen and pelvis was done and significant for colitis, ischemic colitis is possibility given hypotension and elevated lactic acid level. I will consult GI. Patient has episode of A. fib for less than 24 hours, cardiology was consulted and recommend to be on Lopressor. No need for coagulation because of his anemia. Hemoglobin this morning is improved to 8. Anemia work-up was done, no iron deficiency anemia identified. ISAAC is improving. C. difficile was negative. 06/12/2020; continue cefepime per ID recommendation. CT abdomen and pelvis is significant for ischemic colitis likely due to septic shock, hypotension. Patient was seen by GI and recommend no further intervention at this time. Patient had episode of A. fib on admission for less than 24 hours and cardiology recommend to continue on Lopressor, no anticoagulation needed. Hemoglobin is improving. Patient came from assisted living facility. Patient need Covid test before discharge. ISAAC is improving. Creatinine this morning was 1.7. Nephrology is following. OT evaluated and recommend subacute rehab, PT evaluation is pending. 06/13: Replace K and Mag, continue to monitor renal fuction, Continue abx per ID, c.diff negative. patient still with Rectal tube and Torres but will re- evaluate for possible discontinuation. Questran started by GI. Will continue to monitor and replace electrolytes Discussed with nursing staff to change torres to condom catheter CM to try and ascertain patients functional status prior to hospitalization 06/14: Patient showing some clinical improvement Torres replaced due to urinary retention about 1000 cc of clear urine removed. Flomax started. PT OT consu lted as patient is noted to have been ambulatory prior to this admission will likely need SNF placement. Diarrhea consistency is improving anticipate discharge in 24 to 48 hours once approval is obtained. Cardiology input is noted Lopressor 25 mg p.o. twice daily possible addition of SABIHA inhibitor or ARB when okay with nephrology as regular this is a is improving. At this time no AC for A. fib management due to anemia and the transient nature of the A. fib which was less than 24 hours. 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 Unknown etiology or chronicity of these diagnoses. No current clinical evidence of acutely decompensated HF. Per [place] records, pt saw [place] [facility] in 1998 and underwent LHC which did not show any significant findings. Continue with conservative cardiac management given pt's advanced age, dementia and multiple co-morbidities. Recommend pt follow up in our office with Dr. Rosa within 2 weeks of discharge ([phone]). 06/15: Continue supportive care. Will give a unit of PRBC and anticipate discharge today or tomorrow once approval from insurance company obtained. PATIENT will need urology follow up outpatient and also cardiology outpatient. Discussed with patient and Case management Continue PT OT 06/16: Still awaiting prior approval from the insurance company for patient to be discharged. Continue supportive care thrombocytopenia noted again antiplatelets are on hold. We will continue to monitor anticipate discharge once prior authorization is received from insurance [email or web address]. Continue rehab therapy while in house 06/17: Severe hyperkalemia noted in the setting of renal dysfunction. Will hold discharge. Also patient with intermittent fevers culture still on resolved. Bolus of fluid given will also give some Kayexalate to correct hyperkalemia. 06/18: Still with low-grade fever. White count still normal. Potassium mild hypokalemia. Will monitor closely renal function showing some improvement. If continues to improve we will anticipate discharge tomorrow. Still with elevated troponin but improved compared to prior. No respiratory compromise noted at this time diarrhea still present. Will discuss with ID if patient should empirically be treated with p.o. vancomycin despite negative C. difficile for with Flagyl. 06/19: Considering noted deformity on bilateral shoulders will obtain an x-ray just to ensure that there is no other acute event. I reviewed the chart and not has been done. Continue bicarb drip may need to decrease rate but will defer to sql architect. Awaiting labs from today. Anticipate discharge in a.m. we will also rule out bilateral upper extremity DVT due to the swelling. 4/19: Patient is a 80-year-old male who presented to the hospital for dialysis related facility with complaints of lethargy diminished cognition diagnosed with septic shock with diarrhea but with C. difficile negative during hospital stay was noted to be cardiac arrhythmia with tachycardia resolved with amiodarone. Was also noted to have ISAAC likely secondary to ATN showed some improvement and stabilized. Diarrhea persisted was managed with fecal management system with ID input noted. Fortunately the past few days has been having recurrent fever today noted to have a distended abdomen although nontender CT abdomen and pelvis with oral contrast was added following clearance from sql architect. 06/21. Patient seen and examined at bedside this morning. Ultrasound of the upper extremities showed no DVT. He has been advised to elevate right upper extremity to improve swelling. Potassium is very low today he will get potassium replacement. Plan for possible discharge tomorrow. Remained afebrile overnight 06/22. Having electrolyte abnormalities. Repleting. Will repeat levels this PM. On Antibiotics for colitis. Will dc when his electrolytes become stable. 06/23. Plan for discharge today as electrolytes have improved. COVID-19 test was positive so he would not go to [place] as per nurse case management. Plan to search for facilities that will accept him 06/24. Electrolytes have normalized. Awaiting placement 06/25. Complains of pain around the buttock area. Resumed home dose oxycodone yesterday. 06/26. Needs placement. To complete antibiotics tomorrow. 06/27. Pending placement. Continue wound care. Vitals stable 06/28: Patient still awaiting placement. Noted to have swelling of the right upper extremity. Appears to be dependent. Discussed with nursing staff to elevate upper extremity. Septic Shock-resolved. Completed antibiotics Metabolic encephalopathy. Resolved Coag negative Staphylococcus 03/07 bottles. Likely contaminant Urinary tract infection. Urine culture showed no growth. Extensive colitis: C. difficile negative. On Levaquin and Flagyl given abnormal CT abdomen. Antidiarrheals Acute hypoxic respiratory failure-improved. Continue oxygen supplementation. Acute kidney injury secondary to vasomotor nephropathy. Nephrology on board Atrial fibrillation with RVR-rate is well controlled. On amiodarone. Cardiology recommendations appreciated. No indication for anticoagulation due to transient history of atrial fibrillation and anemia as per cardiology. Recurrent fevers. Repeat blood cultures negative so far. Resolved Electrolyte abnormalities-Resolved COVID-19 infection-stable. No need for dexamethasone he is not hypoxic. ID following Sacral ulcer-regular turning. Zinc oxide barrier cream PRN Discharge planning. Plan to discharge to skilled facility when accepted - Patient Problems (1) Acute kidney injury (ISAAC) with acute tubular necrosis (ATN) Current Visit: Yes Status: Acute (2) Hyperkalemia Current Visit: Yes Status: Acute (3) Metabolic acidosis Current Visit: Yes Status: Acute (4) Septic shock Current Visit: Yes Status: Acute History Interval history: History Interval history: Patient seen and examined, patient reports no new complaints today. Still with high fever overnight, Continue supportive care, Diarrhea decreased in quantity Hospitalist Physical - Physical exam Narrative exam: VITAL SIGNS: Reviewed. GENERAL: Awake HEAD: No signs of head trauma. EYES: Pupils are equal. Extraocular motions intact. MOUTH: Oropharynx is normal. NECK: No adenopathy, no JVD. CHEST: Chest with diminished breath sounds bilaterally. No wheezes, rales, or rhonchi. CARDIAC: normal S1 and S2, without murmurs, gallops, or rubs. ABDOMEN: Soft, non tender and non distended. No rebound or guarding, and no masses palpated. Bowel Sounds normal. MUSCULOSKELETAL: Upper extremity swelling right more than left, NEUROLOGIC EXAM: Alert and oriented x3. Mild contractions. SKIN: No obvious lesions - Constitutional Vitals: Temp Pulse Resp BP Pulse Ox 98.3 F 72 18 163/60 100 06/28/20 11:55 06/28/20 11:55 06/28/20 11:55 06/28/20 11:55 06/28/20 11:55 General appearance: Present: no acute distress, well-nourished HEART Score - HEART Score Troponin: Troponin T 0.141 ng/mL (0.00-0.029) H* 06/18/20 10:39 Results - Labs CBC & Chem 7: 06/20/20 06:00 06/27/20 07:37 Labs: Laboratory Last Values WBC 4.9 K/mm3 (4.5-11.0) 06/20/20 06:00 RBC 2.48 M/mm3 (3.65-5.03) L 06/20/20 06:00 Hgb 8.1 gm/dl (11.8-15.2) L 06/20/20 06:00 Hct 23.9 % (35.5-45.6) L 06/20/20 06:00 MCV 97 fl (84-94) H 06/20/20 06:00 MCH 33 pg (28-32) H 06/20/20 06:00 MCHC 34 % (32-34) 06/20/20 06:00 RDW 14.0 % (13.2-15.2) 06/20/20 06:00 Plt Count 279 K/mm3 (140-440) 06/20/20 06:00 Lymph % (Auto) 6.8 % (13.4-35.0) L 06/13/20 06:13 [place] % (Auto) 5.0 % (0.0-7.3) 06/13/20 06:13 Eos % (Auto) 1.7 % (0.0-4.3) 06/13/20 06:13 Baso % (Auto) 0.2 % (0.0-1.8) 06/13/20 06:13 Lymph # (Auto) 0.9 K/mm3 (1.2-5.4) L 06/13/20 06:13 [place] # (Auto) 0.7 K/mm3 (0.0-0.8) 06/13/20 06:13 Eos # (Auto) 0.2 K/mm3 (0.0-0.4) 06/13/20 06:13 Baso # (Auto) 0.0 K/mm3 (0.0-0.1) 06/13/20 06:13 Add Manual Diff Complete 06/16/20 12:50 Total Counted 100 06/16/20 12:50 Seg Neutrophils % 86.3 % (40.0-70.0) H 06/13/20 06:13 Seg Neuts % (Manual) 65.0 % (40.0-70.0) 06/16/20 12:50 Band Neutrophils % 20.0 % 06/16/20 12:50 Lymphocytes % (Manual) 6.0 % (13.4-35.0) L 06/16/20 12:50 Reactive Lymphs % (Man) 1.0 % 06/12/20 05:24 Monocytes % (Manual) 9.0 % (0.0-7.3) H 06/16/20 12:50 Eosinophils % (Manual) 2.0 % (0.0-4.3) 06/12/20 05:24 Nucleated RBC % Not Reportable 06/16/20 12:50 Seg Neutrophils # 11.9 K/mm3 (1.8-7.7) H 06/13/20 06:13 Seg Neutrophils # Man 7.2 K/mm3 (1.8-7.7) 06/16/20 12:50 Band Neutrophils # 2.2 K/mm3 06/16/20 12:50 Lymphocytes # (Manual) 0.7 K/mm3 (1.2-5.4) L 06/16/20 12:50 Abs React Lymphs (Man) 0.0 K/mm3 06/16/20 12:50 Monocytes # (Manual) 1.0 K/mm3 (0.0-0.8) H 06/16/20 12:50 Eosinophils # (Manual) 0.0 K/mm3 (0.0-0.4) 06/16/20 12:50 Basophils # (Manual) 0.0 K/mm3 (0.0-0.1) 06/16/20 12:50 Metamyelocytes # 0.0 K/mm3 06/16/20 12:50 Myelocytes # 0.0 K/mm3 06/16/20 12:50 Promyelocytes # 0.0 K/mm3 06/16/20 12:50 Blast Cells # 0.0 K/mm3 06/16/20 12:50 WBC Morphology Not Reportable 06/16/20 12:50 Hypersegmented Neuts Not Reportable 06/16/20 12:50 Hyposegmented Neuts Not Reportable 06/16/20 12:50 Hypogranular Neuts Not Reportable 06/16/20 12:50 Smudge Cells Not Reportable 06/16/20 12:50 Toxic Granulation Not Reportable 06/16/20 12:50 Toxic Vacuolation Not Reportable 06/16/20 12:50 Dohle Bodies Not Reportable 06/16/20 12:50 Pelger-Huet Anomaly Not Reportable 06/16/20 12:50 Denys Rods Not Reportable 06/16/20 12:50 Platelet Estimate Consistent w auto 06/16/20 12:50 Clumped Platelets Rare 06/16/20 12:50 Plt Clumps, EDTA Not Reportable 06/16/20 12:50 Large Platelets Rare 06/16/20 12:50 Giant Platelets Not Reportable 06/16/20 12:50 Platelet Satelliting Not Reportable 06/16/20 12:50 Plt Morphology Comment Not Reportable 06/16/20 12:50 RBC Morphology Normal 06/16/20 12:50 Dimorphic RBCs Not Reportable 06/16/20 12:50 Polychromasia Not Reportable 06/16/20 12:50 Hypochromasia Not Reportable 06/16/20 12:50 Poikilocytosis Not Reportable 06/16/20 12:50 Anisocytosis Not Reportable 06/16/20 12:50 Microcytosis Not Reportable 06/16/20 12:50 Macrocytosis Not Reportable 06/16/20 12:50 Spherocytes Not Reportable 06/16/20 12:50 Pappenheimer Bodies Not Reportable 06/16/20 12:50 Sickle Cells Not Reportable 06/16/20 12:50 Target Cells Not Reportable 06/16/20 12:50 Tear Drop Cells Not Reportable 06/16/20 12:50 Ovalocytes Not Reportable 06/16/20 12:50 Helmet Cells Not Reportable 06/16/20 12:50 [place] Bodies Not Reportable 06/16/20 12:50 [place] Rings Not Reportable 06/16/20 12:50 Dom Cells Not Reportable 06/16/20 12:50 Bite Cells Not Reportable 06/16/20 12:50 Crenated Cell Not Reportable 06/16/20 12:50 Elliptocytes Not Reportable 06/16/20 12:50 Acanthocytes (Spur) Not Reportable 06/16/20 12:50 Rouleaux Not Reportable 06/16/20 12:50 Hemoglobin C Crystals Not Reportable 06/16/20 12:50 Schistocytes Not Reportable 06/16/20 12:50 Malaria parasites Not Reportable 06/16/20 12:50 Chance Bodies Not Reportable 06/16/20 12:50 Hem Pathologist Commnt No 06/16/20 12:50 PT 16.3 Sec. (12.2-14.9) H 06/06/20 10:19 INR 1.33 (0.87-1.13) H 06/06/20 10:19 APTT 31.6 Sec. (24.2-36.6) 06/06/20 10:19 ABG pH 7.329 pH Units (7.350-7.450) L 06/06/20 11:18 ABG pCO2 27.8 mm Hg 06/06/20 11:18 ABG pO2 258.1 mm Hg (80.0-90.0) H 06/06/20 11:18 ABG HCO3 14.3 mmol/L (20.0-26.0) L 06/06/20 11:18 ABG O2 Saturation 99.4 % (95.0-99.0) H 06/06/20 11:18 ABG O2 Content 13.2 (0.0-44) 06/06/20 11:18 ABG Base Excess -10.5 mmol/L (-2.0-3.0) L 06/06/20 11:18 ABG Hemoglobin 9.1 gm/dl (14.0-18.0) L 06/06/20 11:18 ABG Carboxyhemoglobin 1.3 % (0.0-5.0) 06/06/20 11:18 ABG Methemoglobin Not Reportable 06/06/20 11:18 VBG pH 7.438 (7.320-7.420) H 06/06/20 10:19 Oxyhemoglobin 98.2 % (95.0-99.0) 06/06/20 11:18 FiO2 21 % 06/06/20 11:18 Sodium 135 mmol/L (137-145) L 06/27/20 07:37 Potassium 4.2 mmol/L (3.6-5.0) 06/27/20 07:37 Chloride 108.1 mmol/L (98-107) H 06/27/20 07:37 Carbon Dioxide 22 mmol/L (22-30) 06/27/20 07:37 Anion Gap 9 mmol/L 06/27/20 07:37 BUN 13 mg/dL (9-20) 06/27/20 07:37 Creatinine 1.0 mg/dL (0.8-1.3) 06/27/20 07:37 Estimated GFR > 60 ml/min 06/27/20 07:37 BUN/Creatinine Ratio 13 % 06/27/20 07:37 Glucose 78 mg/dL (75-100) 06/27/20 07:37 POC Glucose 87 mg/dL (70-105) 06/27/20 07:19 Lactic Acid 1.50 mmol/L (0.7-2.0) 06/08/20 05:15 Calcium 7.1 mg/dL (8.4-10.2) L 06/27/20 07:37 Phosphorus 2.50 mg/dL (2.5-4.5) 06/24/20 08:29 Magnesium 1.80 mg/dL (1.7-2.3) 06/24/20 08:29 Iron 54 ug/dL (49-181) 06/10/20 10:44 TIBC 157 mcg/dL (250-450) L 06/10/20 10:44 Ferritin 569.5 ng/mL (30.0-300.0) H 06/10/20 10:44 Total Bilirubin 0.20 mg/dL (0.1-1.2) 06/14/20 05:23 AST 19 units/L (5-40) 06/14/20 05:23 ALT 20 units/L (7-56) 06/14/20 05:23 Alkaline Phosphatase 55 units/L (35-129) 06/14/20 05:23 Ammonia 64.0 umol/L (25-60) H 06/06/20 10:19 Total Creatine Kinase 1212 units/L (55-170) H 06/09/20 12:57 CK-MB (CK-2) 12.1 ng/mL (0.0-4.0) H 06/09/20 12:57 CK-MB (CK-2) Rel Index 0.9 (0-4) 06/09/20 12:57 Troponin T 0.141 ng/mL (0.00-0.029) H* 06/18/20 10:39 Total Protein 4.9 g/dL (6.3-8.2) L 06/14/20 05:23 Albumin 2.4 g/dL (3.9-5) L 06/14/20 05:23 Albumin/Globulin Ratio 1.0 % 06/14/20 05:23 Triglycerides 103 mg/dL (2-149) 06/06/20 10:19 Cholesterol 84 mg/dL (50-199) 06/06/20 10:19 LDL Cholesterol Direct 28 mg/dL (50-130) L 06/06/20 10:19 HDL Cholesterol 44 mg/dL (40-59) 06/06/20 10:19 Cholesterol/HDL Ratio 1.90 % 06/06/20 10:19 Vitamin B12 1170 pg/mL (211-911) H 06/10/20 14:49 RBC Folic Acid 829 ng/mL (>280) 06/10/20 10:44 TSH 4.440 mlU/mL (0.270-4.200) H 06/06/20 10:19 Free T4 1.55 ng/dL (0.76-1.46) H 06/06/20 10:19 PTH Intact 271.9 pg/mL (15-65) H 06/08/20 05:15 Urine Color Yellow (Yellow) 06/06/20 14:02 Urine Turbidity Cloudy (Clear) 06/06/20 14:02 Urine pH 6.0 (5.0-7.0) 06/06/20 14:02 Ur Specific [place] 1.013 (1.003-1.030) 06/06/20 14:02 Urine Protein 100 mg/dl mg/dL (Negative) 06/06/20 14:02 Urine Glucose (UA) Neg mg/dL (Negative) 06/06/20 14:02 Urine Ketones Neg mg/dL (Negative) 06/06/20 14:02 Urine Blood Sm (Negative) 06/06/20 14:02 Urine Nitrite Neg (Negative) 06/06/20 14:02 Urine Bilirubin Neg (Negative) 06/06/20 14:02 Urine Urobilinogen < 2.0 mg/dL (<2.0) 06/06/20 14:02 Ur Leukocyte Esterase Lg (Negative) 06/06/20 14:02 Urine WBC (Auto) > 182.0 /HPF (0.0-6.0) H 06/06/20 14:02 Urine RBC (Auto) 55.0 /HPF (0.0-6.0) 06/06/20 14:02 U Epithel Cells (Auto) 1.0 /HPF (0-13.0) 06/06/20 14:02 Urine WBC Clumps 2+ /HPF 06/06/20 14:02 Urine Creatinine 57.0 mg/dL (0.1-20.0) H 06/06/20 21:05 Urine Sodium 85 mmol/L 06/06/20 21:05 Random Vancomycin 9.8 ug/mL (0-40.0) 06/09/20 04:30 Urine Opiates Screen Presumptive negative 06/06/20 14:02 Urine Methadone Screen Presumptive negative 06/06/20 14:02 Ur Barbiturates Screen Presumptive negative 06/06/20 14:02 Ur Phencyclidine Scrn Presumptive negative 06/06/20 14:02 Ur Amphetamines Screen Presumptive negative 06/06/20 14:02 U Benzodiazepines Scrn Presumptive negative 06/06/20 14:02 Urine Cocaine Screen Presumptive negative 06/06/20 14:02 U Marijuana (THC) Screen Presumptive negative 06/06/20 14:02 Drugs of Abuse Note Disclamer 06/06/20 14:02 Plasma/Serum Alcohol < 0.01 % (0-0.07) 06/06/20 10:19 C. difficile Tox (PCR) Negative (Negative) 06/08/20 Unknown Coronavirus (PCR) Positive (Negative) A 06/22/20 10:00 Blood Type O POSITIVE 06/15/20 11:00 Antibody Screen Negative 06/15/20 11:00 Crossmatch See Detail 06/15/20 11:00 Torres/IV: Voiding Method Indwelling Catheter Active Medications - Current Medications Current Medications: Generic Name Dose Route Start Last Admin Trade Name Freq PRN Reason Stop Dose Admin Acetaminophen 650 mg 06/06/20 15:00 06/24/20 06:09 Acetaminophen 325 Mg Tab PO 650 mg Q6H PRN Administration Pain, Mild (1-3) Albuterol 2.5 mg 06/06/20 15:00 Albuterol 2.5 Mg/3 Ml Nebu IH Q3HRT PRN Shortness Of Breath Allopurinol 100 mg 06/07/20 10:00 06/28/20 09:03 Allopurinol 100 Mg Tab PO 100 mg QDAY YELENA Administration Calcium Carbonate/Glycine 500 mg 06/07/20 10:00 06/28/20 09:05 Calcium Carbonate 500 Mg Tab Chew PO 500 mg QDAY YELENA Administration Cholecalciferol 2,000 unit 06/07/20 10:00 06/28/20 09:03 Cholecalciferol (Vit D3) 1000 Unit (25 Mcg) Tab PO 2,000 unit QDAY YELENA Administration Cholestyramine Resin 4 gm 06/12/20 22:00 06/28/20 09:04 Cholestyramine (With Sugar) 4 Gm Packet PO 4 gm BID YELENA Administration Dicyclomine HCl 10 mg 06/06/20 20:00 06/28/20 09:02 Dicyclomine 10 Mg Cap PO 10 mg TID YELENA Administration Famotidine 20 mg 06/13/20 10:00 06/28/20 09:03 Famotidine 20 Mg Tab PO 20 mg QDAY YELENA Administration Hydrophilic Ointment 1 applic 06/24/20 11:00 06/25/20 07:47 Lip Therapy Vaseline TP 1 applic DIRECT PRN Administration Dry Lips Loperamide HCl 2 mg 06/22/20 12:30 06/27/20 10:12 Loperamide 2 Mg Cap PO 2 mg Q2H PRN Administration Diarrhea Magnesium Citrate 300 ml 06/06/20 16:20 Magnesium Citrate 300 Ml Oral Liqd PO QDAY PRN Constipation Metoprolol Tartrate 25 mg 06/09/20 22:00 06/28/20 09:04 Metoprolol Tartrate 25 Mg Tab PO 25 mg BID YELENA Administration Oxycodone/Acetaminophen 1 tab 06/24/20 12:30 06/28/20 04:18 Oxycodone /Acetaminophen 5-325mg Tab PO 1 tab Q4H PRN Administration Pain, Moderate (4-6) Pravastatin Sodium 10 mg 06/06/20 22:00 06/27/20 22:17 Pravastatin 20 Mg Tab PO 10 mg QHS YELENA Administration Sodium Bicarbonate 650 mg 06/16/20 20:00 06/28/20 09:03 Sodium Bicarbonate 650 Mg Tab PO 650 mg TID YELENA Administration Sodium Chloride 10 ml 06/06/20 15:00 06/28/20 09:05 Sodium Chloride 0.9% 10 Ml Flush Syringe IV 10 ml BID YELENA Administration Sodium Chloride 10 ml 06/06/20 15:00 Sodium Chloride 0.9% 10 Ml Flush Syringe IV PRN PRN LINE FLUSH Tamsulosin HCl 0.4 mg 06/14/20 11:00 06/28/20 09:04 Tamsulosin 0.4 Mg Cap PO 0.4 mg QDAY YELENA Administration Zinc Oxide 1 applic 06/25/20 11:00 04/27/21 09:06 Zinc Oxide 20% Oint 28.35 Gm TP 1 applic BID YELENA Administration Nutrition/Malnutrition Assess - Dietary Evaluation Nutrition/Malnutrition Findings: Nutrition Notes Start: 06/08/20 11:43 Freq: Status: Active Protocol: Document 06/26/20 08:04 CW (Rec: 06/26/20 08:20 CW [id number]) Nutrition Notes Need for Assessment generated from: MD Order Current Diagnosis Acute Kidney Injury,Diabetes, Hypertension Other Pertinent Diagnosis AMS, Dementia, UTI, metabolic encephalopathy, ?s/p CVA? Current Diet Mechanical soft diet + ONS BID Labs/Tests 06/26/2019 Na 135 K 4.7 BG 64 Pertinent Medications reviewed Height 5 ft 8 in Weight 87.2 kg Moran Body Weight (kg) 70.00 BMI 29.2 Weight Status Overweight Subjective/Other Information MD consult for dietary supplements. Updated diet order to provide ensure clear TID. Intake continues to be very low; <25% x7 days. recommend appetite stimulant or alternate feeding method based on POC Percent of energy/protein needs met: 27%/33% Burn Absent Trauma Absent Difficulty In Swallowing Skin Integrity/Comment Stage 1 pressure ulcer Current % PO Negligible Minimum of two criteria Yes Energy Intake (severe) < or equal to 50% Estimated Energy Requirement > or equal to 5 days Fluid Accumulation Mild (non-severe) Reduced Lithographed Plate Inspector Strength Measurably Reduced (severe) #3 Nutrition Diagnosis Malnutrition Etiology lack of appetite As Evidenced by Signs and Symptoms bilateral weak girp strength, <50% of intake of energy needs x 7 days, nonpitting edema #2 Nutrition Diagnosis Increased nutrient needs ( specify in comment below) Diagnosis Progress(for reassessment Continues documentation) #1 Nutrition Diagnosis Inadequate oral intake As Evidenced by Signs and Symptoms Pt eating 0% of meals and drinking 33% of ONS Diagnosis Progress(for reassessment Worsened documentation) Is patient on ventilator? No Is Patient Ambulatory and/or Out of Bed Yes REE-([place]-St. Jeor-ambulatory/OOB) [ 2028. NUTR.[id number]] Calculation Used for Recommendations [place]-St Jeor Additional Notes protein needs: 104 - 131g (1. 2 - 1.5g/kgBW for ISAAC) fluid needs: 1 ml/kcal Nutrition Intervention Change Diet Order: Continue Mechanical Soft Diet and ONS Add Supplement/Snack (indicate name/kcal Ensure Clear TID /protein ) Provides kCal: 720 Provides Protein (gm) 24 Goal #1 Meet at least 75% of kcal and proteins via PO and ONS Goal #2 wound healing Anticipated Discharge Needs: Mechanical Soft diet + ONS PRN Follow-Up By: 06/28/20 Additional Comments F/U intakes and ONS tolerance; POC
[2020-06-28] MEDS ORDERED: FUROSEMIDE 40 MG/4 ML INJ IV NR ×2 (13:14→14:45)
[2020-06-28] MEDS: PRAVASTATIN 20 MG TAB PO SCH (21:12)
[2020-06-29] MEDS: CHOLECALCIFEROL (VIT D3) 1000 UNIT (25 mcg) TAB PO SCH (11:55)
[2020-06-29] MEDS: FAMOTIDINE 20 MG TAB PO SCH (11:55)
[2020-06-29] MEDS: TAMSULOSIN 0.4 MG CAP PO SCH (11:55)
[2020-06-29] MEDS: allopurinoL 100 MG TAB PO SCH (11:55)
[2020-06-29] MEDS: CALCIUM CARBONATE 500 MG TAB CHEW PO SCH (11:55)
[2020-06-29] MEDS: METOPROLOL TARTRATE 25 MG TAB PO SCH ×2 (11:55→23:06)
[2020-06-29] MEDS: SODIUM BICARBONATE 650 MG TAB PO SCH ×4 (12:26→23:07)
[2020-06-29] MEDS: CHOLESTYRAMINE (WITH SUGAR) 4 GM PACKET PO SCH ×2 (12:27→23:07)
[2020-06-29] MEDS: DICYCLOMINE 10 MG CAP PO SCH ×4 (12:27→23:07)
[2020-06-29] MEDS: ZINC OXIDE 20% OINT 28.35 GM TP SCH ×2 (12:28→23:07)
--- NOTE | 2020-06-29 12:43 | Progress Note ---
Assessment and Plan Assessment and plan: 80-year-old male who is a resident of assisted living facility with vascular dementia, cerebral sclerosis, debility, diabetes mellitus who presents to the emergency department on 06/06 with complaints of lethargy and diminished cognition as per daughter he developed an episode of unresponsiveness while at breakfast at at his assisted living facility. Patient was found to have a urinary tract infection complicated by sepsis and septic shock, acute kidney injury, toxic metabolic encephalopathy as well as metabolic acidosis. Patient was hypotensive with systolic blood pressures in the 50s and was initiated on vasopressor support in the emergency department. Patient was admitted to the hospital serv ice with consults to nephrology and [facility]. Hospital course 06/07: Patient remains on dopamine, vasopressin and Levophed. Nephrology has started the patient on sodium bicarbonate drip for metabolic acidosis. Infectious disease initiated vancomycin in addition to the cefepime and ordered a C. difficile. 06/08: Patient has gram-positive cocci bacteremia in 03/07 bottles which grew to be coag negative staph coccus and he has repeat blood cultures in progress. Urine culture has no growth to date and he is on IV vancomycin and cefepime. Yesterday we ordered a C. difficile PCR which is pending. Patient had a moment of tachycardia into the 130s and a stat EKG was obtained. Patient was given amiodarone bolus by [facility] and cardiology was consulted. Patient is hyperchloremic today however his metabolic acidosis and BUN/creatinine is slightly improved to 93/3.2 from 100/3.6 and his repeat lactic acid is 1.5. At the time my examination patient was on Levophed at 6, vasopressin 0.03 and dopamine at 6. This morning patient failed his swallow eval and ST evaluation was ordered. Of note patient's echocardiogram shows reduced 15 to 20% with borderline left ventricular hypertrophy. 06/09: This morning his speech evaluation was completed and he has been cleared for mechanical soft diet with thin liquids. Patient complained of right-sided chest pain with radiation to shoulders and a stat EKG cardiac enzymes were ordered. Patient was recultured yesterday and those have no growth to date and his vancomycin was stopped. Infectious disease team recommends removal of Torres catheter when feasible and a CT abdomen/pelvis when stable. Patient has been cleared to transfer to the floor by cardiology and [facility]. 06/10/2020; patient is on IV cefepime for sepsis due to UTI day 3 out of 5. Vancomycin discontinued. Patient is complaining pleuritic chest pain. Patient was evaluated by cardiology for elevated troponin and episode of A. fib on admission. Cardiology discontinued amiodarone and put her on Lopressor. Cardiology recommend against anticoagulation because of patient's anemia. Hemoglobin this morning was 7.4 and anemia work-up is in progress. I did ordered CT abdomen and pelvis. PT OT evaluation. Patient has ISAAC and nephrology is following. Patient has rectal tube and liquid stool in the bag. I ordered stool for C. difficile. We will continue to monitor. 06/11/2020; patient is on cefepime day /. CT abdomen and pelvis was done and significant for colitis, ischemic colitis is possibility given hypotension and elevated lactic acid level. I will consult GI. Patient has episode of A. fib for less than 24 hours, cardiology was consulted and recommend to be on Lopressor. No need for coagulation because of his anemia. Hemoglobin this morning is improved to 8. Anemia work-up was done, no iron deficiency anemia identified. ISAAC is improving. C. difficile was negative. 06/12/2020; continue cefepime per ID recommendation. CT abdomen and pelvis is significant for ischemic colitis likely due to septic shock, hypotension. Patient was seen by GI and recommend no further intervention at this time. Patient had episode of A. fib on admission for less than 24 hours and cardiology recommend to continue on Lopressor, no anticoagulation needed. Hemoglobin is improving. Patient came from assisted living facility. Patient need Covid test before discharge. ISAAC is improving. Creatinine this morning was 1.7. Nephrology is following. OT evaluated and recommend subacute rehab, PT evaluation is pending. 06/13: Replace K and Mag, continue to monitor renal fuction, Continue abx per ID, c.diff negative. patient still with Rectal tube and Torres but will re- evaluate for possible discontinuation. Questran started by GI. Will continue to monitor and replace electrolytes Discussed with nursing staff to change torres to condom catheter CM to try and ascertain patients functional status prior to hospitalization 06/14: Patient showing some clinical improvement Torres replaced due to urinary retention about 1000 cc of clear urine removed. Flomax started. PT OT consu lted as patient is noted to have been ambulatory prior to this admission will likely need SNF placement. Diarrhea consistency is improving anticipate discharge in 24 to 48 hours once approval is obtained. Cardiology input is noted Lopressor 25 mg p.o. twice daily possible addition of SABIHA inhibitor or ARB when okay with nephrology as regular this is a is improving. At this time no AC for A. fib management due to anemia and the transient nature of the A. fib which was less than 24 hours. 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 Unknown etiology or chronicity of these diagnoses. No current clinical evidence of acutely decompensated HF. Per [facility] records, pt saw [facility] in 1998 and underwent LHC which did not show any significant findings. Continue with conservative cardiac management given pt's advanced age, dementia and multiple co-morbidities. Recommend pt follow up in our office with Dr. Rosa within 2 weeks of discharge ([phone]). 06/15: Continue supportive care. Will give a unit of PRBC and anticipate discharge today or tomorrow once approval from insurance company obtained. PATIENT will need urology follow up outpatient and also cardiology outpatient. Discussed with patient and Case management Continue PT OT 06/16: Still awaiting prior approval from the insurance company for patient to be discharged. Continue supportive care thrombocytopenia noted again antiplatelets are on hold. We will continue to monitor anticipate discharge once prior authorization is received from insurance [employer]. Continue rehab therapy while in house 06/17: Severe hyperkalemia noted in the setting of renal dysfunction. Will hold discharge. Also patient with intermittent fevers culture still on resolved. Bolus of fluid given will also give some Kayexalate to correct hyperkalemia. 06/18: Still with low-grade fever. White count still normal. Potassium mild hypokalemia. Will monitor closely renal function showing some improvement. If continues to improve we will anticipate discharge tomorrow. Still with elevated troponin but improved compared to prior. No respiratory compromise noted at this time diarrhea still present. Will discuss with ID if patient should empirically be treated with p.o. vancomycin despite negative C. difficile for with Flagyl. 06/19: Considering noted deformity on bilateral shoulders will obtain an x-ray just to ensure that there is no other acute event. I reviewed the chart and not has been done. Continue bicarb drip may need to decrease rate but will defer to marine engineering teacher. Awaiting labs from today. Anticipate discharge in a.m. we will also rule out bilateral upper extremity DVT due to the swelling. 4/19: Patient is a 80-year-old male who presented to the hospital for dialysis related facility with complaints of lethargy diminished cognition diagnosed with septic shock with diarrhea but with C. difficile negative during hospital stay was noted to be cardiac arrhythmia with tachycardia resolved with amiodarone. Was also noted to have ISAAC likely secondary to ATN showed some improvement and stabilized. Diarrhea persisted was managed with fecal management system with ID input noted. Fortunately the past few days has been having recurrent fever today noted to have a distended abdomen although nontender CT abdomen and pelvis with oral contrast was added following clearance from marine engineering teacher. 06/21. Patient seen and examined at bedside this morning. Ultrasound of the upper extremities showed no DVT. He has been advised to elevate right upper extremity to improve swelling. Potassium is very low today he will get potassium replacement. Plan for possible discharge tomorrow. Remained afebrile overnight 06/22. Having electrolyte abnormalities. Repleting. Will repeat levels this PM. On Antibiotics for colitis. Will dc when his electrolytes become stable. 06/23. Plan for discharge today as electrolytes have improved. COVID-19 test was positive so he would not go to [facility] as per case loader operator. Plan to search for facilities that will accept him 06/24. Electrolytes have normalized. Awaiting placement 06/25. Complains of pain around the buttock area. Resumed home dose oxycodone yesterday. 06/26. Needs placement. To complete antibiotics tomorrow. 06/27. Pending placement. Continue wound care. Vitals stable 06/28: Patient still awaiting placement. Noted to have swelling of the right upper extremity. Appears to be dependent. Discussed with nursing staff to elevate upper extremity. 06/29: Patient seen and examined, Continue supportive discussed with case management today will work on seeing if the facility he came from will accept him back. Still recommended outpatient urology evaluation. Upper extremity swelling continues to show some improvement with elevation. Septic Shock-resolved. Completed antibiotics Metabolic encephalopathy. Resolved Coag negative Staphylococcus 03/07 bottles. Likely contaminant Urinary tract infection. Urine culture showed no growth. Extensive colitis: C. difficile negative. On Levaquin and Flagyl given abnormal CT abdomen. Antidiarrals Acute hypoxic respiratory failure-improved. Continue oxygen supplementation. Acute kidney injury secondary to vasomotor nephropathy. Nephrology on board Atrial fibrillation with RVR-rate is well controlled. On amiodarone. Cardiology recommendations appreciated. No indication for anticoagulation due to transient history of atrial fibrillation and anemia as per cardiology. Recurrent fevers. Repeat blood cultures negative so far. Resolved Electrolyte abnormalities-Resolved COVID-19 infection-stable. No need for dexamethasone he is not hypoxic. ID following Sacral ulcer-regular turning. Zinc oxide barrier cream PRN Discharge planning. Plan to discharge to skilled facility when accepted - Patient Problems (1) Acute kidney injury (ISAAC) with acute tubular necrosis (ATN) Current Visit: Yes Status: Acute (2) Hyperkalemia Current Visit: Yes Status: Acute (3) Metabolic acidosis Current Visit: Yes Status: Acute (4) Septic shock Current Visit: Yes Status: Acute History Interval history: History Interval history: Patient seen and examined, patient reports no new complaints today. No new fever, Continue supportive care. Hospitalist Physical - Physical exam Narrative exam: VITAL SIGNS: Reviewed. GENERAL: Awake HEAD: No signs of head trauma. EYES: Pupils are equal. Extraocular motions intact. MOUTH: Oropharynx is normal. NECK: No adenopathy, no JVD. CHEST: Chest with diminished breath sounds bilaterally. No wheezes, rales, or rhonchi. CARDIAC: normal S1 and S2, without murmurs, gallops, or rubs. ABDOMEN: Soft, non tender and non distended. No rebound or guarding, and no masses palpated. Bowel Sounds normal. MUSCULOSKELETAL: Upper extremity swelling right more than left, Improving some NEUROLOGIC EXAM: Alert and oriented x3. Mild contractions. SKIN: No obvious lesions - Constitutional Vitals: Temp Pulse Resp BP Pulse Ox 98.1 F 86 18 131/70 99 06/29/20 05:18 06/29/20 11:55 06/29/20 05:18 06/29/20 05:18 06/29/20 05:18 General appearance: Present: no acute distress, well-nourished HEART Score - HEART Score Troponin: Troponin T 0.141 ng/mL (0.00-0.029) H* 06/18/20 10:39 Results - Labs CBC & Chem 7: 06/20/20 06:00 06/27/20 07:37 Labs: Laboratory Last Values WBC 4.9 K/mm3 (4.5-11.0) 06/20/20 06:00 RBC 2.48 M/mm3 (3.65-5.03) L 06/20/20 06:00 Hgb 8.1 gm/dl (11.8-15.2) L 06/20/20 06:00 Hct 23.9 % (35.5-45.6) L 06/20/20 06:00 MCV 97 fl (84-94) H 06/20/20 06:00 MCH 33 pg (28-32) H 06/20/20 06:00 MCHC 34 % (32-34) 06/20/20 06:00 RDW 14.0 % (13.2-15.2) 06/20/20 06:00 Plt Count 279 K/mm3 (140-440) 06/20/20 06:00 Lymph % (Auto) 6.8 % (13.4-35.0) L 06/13/20 06:13 [place] % (Auto) 5.0 % (0.0-7.3) 06/13/20 06:13 Eos % (Auto) 1.7 % (0.0-4.3) 06/13/20 06:13 Baso % (Auto) 0.2 % (0.0-1.8) 06/13/20 06:13 Lymph # (Auto) 0.9 K/mm3 (1.2-5.4) L 06/13/20 06:13 [place] # (Auto) 0.7 K/mm3 (0.0-0.8) 06/13/20 06:13 Eos # (Auto) 0.2 K/mm3 (0.0-0.4) 06/13/20 06:13 Baso # (Auto) 0.0 K/mm3 (0.0-0.1) 06/13/20 06:13 Add Manual Diff Complete 06/16/20 12:50 Total Counted 100 06/16/20 12:50 Seg Neutrophils % 86.3 % (40.0-70.0) H 06/13/20 06:13 Seg Neuts % (Manual) 65.0 % (40.0-70.0) 06/16/20 12:50 Band Neutrophils % 20.0 % 06/16/20 12:50 Lymphocytes % (Manual) 6.0 % (13.4-35.0) L 06/16/20 12:50 Reactive Lymphs % (Man) 1.0 % 06/12/20 05:24 Monocytes % (Manual) 9.0 % (0.0-7.3) H 06/16/20 12:50 Eosinophils % (Manual) 2.0 % (0.0-4.3) 06/12/20 05:24 Nucleated RBC % Not Reportable 06/16/20 12:50 Seg Neutrophils # 11.9 K/mm3 (1.8-7.7) H 06/13/20 06:13 Seg Neutrophils # Man 7.2 K/mm3 (1.8-7.7) 06/16/20 12:50 Band Neutrophils # 2.2 K/mm3 06/16/20 12:50 Lymphocytes # (Manual) 0.7 K/mm3 (1.2-5.4) L 06/16/20 12:50 Abs React Lymphs (Man) 0.0 K/mm3 06/16/20 12:50 Monocytes # (Manual) 1.0 K/mm3 (0.0-0.8) H 06/16/20 12:50 Eosinophils # (Manual) 0.0 K/mm3 (0.0-0.4) 06/16/20 12:50 Basophils # (Manual) 0.0 K/mm3 (0.0-0.1) 06/16/20 12:50 Metamyelocytes # 0.0 K/mm3 06/16/20 12:50 Myelocytes # 0.0 K/mm3 06/16/20 12:50 Promyelocytes # 0.0 K/mm3 06/16/20 12:50 Blast Cells # 0.0 K/mm3 06/16/20 12:50 WBC Morphology Not Reportable 06/16/20 12:50 Hypersegmented Neuts Not Reportable 06/16/20 12:50 Hyposegmented Neuts Not Reportable 06/16/20 12:50 Hypogranular Neuts Not Reportable 06/16/20 12:50 Smudge Cells Not Reportable 06/16/20 12:50 Toxic Granulation Not Reportable 06/16/20 12:50 Toxic Vacuolation Not Reportable 06/16/20 12:50 Dohle Bodies Not Reportable 06/16/20 12:50 Pelger-Huet Anomaly Not Reportable 06/16/20 12:50 Denys Rods Not Reportable 06/16/20 12:50 Platelet Estimate Consistent w auto 06/16/20 12:50 Clumped Platelets Rare 06/16/20 12:50 Plt Clumps, EDTA Not Reportable 06/16/20 12:50 Large Platelets Rare 06/16/20 12:50 Giant Platelets Not Reportable 06/16/20 12:50 Platelet Satelliting Not Reportable 06/16/20 12:50 Plt Morphology Comment Not Reportable 06/16/20 12:50 RBC Morphology Normal 06/16/20 12:50 Dimorphic RBCs Not Reportable 06/16/20 12:50 Polychromasia Not Reportable 06/16/20 12:50 Hypochromasia Not Reportable 06/16/20 12:50 Poikilocytosis Not Reportable 06/16/20 12:50 Anisocytosis Not Reportable 06/16/20 12:50 Microcytosis Not Reportable 06/16/20 12:50 Macrocytosis Not Reportable 06/16/20 12:50 Spherocytes Not Reportable 06/16/20 12:50 Pappenheimer Bodies Not Reportable 06/16/20 12:50 Sickle Cells Not Reportable 06/16/20 12:50 Target Cells Not Reportable 06/16/20 12:50 Tear Drop Cells Not Reportable 06/16/20 12:50 Ovalocytes Not Reportable 06/16/20 12:50 Helmet Cells Not Reportable 06/16/20 12:50 [place] Bodies Not Reportable 06/16/20 12:50 [place] Rings Not Reportable 06/16/20 12:50 [place] Cells Not Reportable 06/16/20 12:50 Bite Cells Not Reportable 06/16/20 12:50 Crenated Cell Not Reportable 06/16/20 12:50 Elliptocytes Not Reportable 06/16/20 12:50 Acanthocytes (Spur) Not Reportable 06/16/20 12:50 Rouleaux Not Reportable 06/16/20 12:50 Hemoglobin C Crystals Not Reportable 06/16/20 12:50 Schistocytes Not Reportable 06/16/20 12:50 Malaria parasites Not Reportable 06/16/20 12:50 Chance Bodies Not Reportable 06/16/20 12:50 Hem Pathologist Commnt No 06/16/20 12:50 PT 16.3 Sec. (12.2-14.9) H 06/06/20 10:19 INR 1.33 (0.87-1.13) H 06/06/20 10:19 APTT 31.6 Sec. (24.2-36.6) 06/06/20 10:19 ABG pH 7.329 pH Units (7.350-7.450) L 06/06/20 11:18 ABG pCO2 27.8 mm Hg 06/06/20 11:18 ABG pO2 258.1 mm Hg (80.0-90.0) H 06/06/20 11:18 ABG HCO3 14.3 mmol/L (20.0-26.0) L 06/06/20 11:18 ABG O2 Saturation 99.4 % (95.0-99.0) H 06/06/20 11:18 ABG O2 Content 13.2 (0.0-44) 06/06/20 11:18 ABG Base Excess -10.5 mmol/L (-2.0-3.0) L 06/06/20 11:18 ABG Hemoglobin 9.1 gm/dl (14.0-18.0) L 06/06/20 11:18 ABG Carboxyhemoglobin 1.3 % (0.0-5.0) 06/06/20 11:18 ABG Methemoglobin Not Reportable 06/06/20 11:18 VBG pH 7.438 (7.320-7.420) H 06/06/20 10:19 Oxyhemoglobin 98.2 % (95.0-99.0) 06/06/20 11:18 FiO2 21 % 06/06/20 11:18 Sodium 135 mmol/L (137-145) L 06/27/20 07:37 Potassium 4.2 mmol/L (3.6-5.0) 06/27/20 07:37 Chloride 108.1 mmol/L (98-107) H 06/27/20 07:37 Carbon Dioxide 22 mmol/L (22-30) 06/27/20 07:37 Anion Gap 9 mmol/L 06/27/20 07:37 BUN 13 mg/dL (9-20) 06/27/20 07:37 Creatinine 1.0 mg/dL (0.8-1.3) 06/27/20 07:37 Estimated GFR > 60 ml/min 06/27/20 07:37 BUN/Creatinine Ratio 13 % 06/27/20 07:37 Glucose 78 mg/dL (75-100) 06/27/20 07:37 POC Glucose 87 mg/dL (70-105) 06/27/20 07:19 Lactic Acid 1.50 mmol/L (0.7-2.0) 06/08/20 05:15 Calcium 7.1 mg/dL (8.4-10.2) L 06/27/20 07:37 Phosphorus 2.50 mg/dL (2.5-4.5) 06/24/20 08:29 Magnesium 1.80 mg/dL (1.7-2.3) 06/24/20 08:29 Iron 54 ug/dL (49-181) 06/10/20 10:44 TIBC 157 mcg/dL (250-450) L 06/10/20 10:44 Ferritin 569.5 ng/mL (30.0-300.0) H 06/10/20 10:44 Total Bilirubin 0.20 mg/dL (0.1-1.2) 06/14/20 05:23 AST 19 units/L (5-40) 06/14/20 05:23 ALT 20 units/L (7-56) 06/14/20 05:23 Alkaline Phosphatase 55 units/L (35-129) 06/14/20 05:23 Ammonia 64.0 umol/L (25-60) H 06/06/20 10:19 Total Creatine Kinase 1212 units/L (55-170) H 06/09/20 12:57 CK-MB (CK-2) 12.1 ng/mL (0.0-4.0) H 06/09/20 12:57 CK-MB (CK-2) Rel Index 0.9 (0-4) 06/09/20 12:57 Troponin T 0.141 ng/mL (0.00-0.029) H* 06/18/20 10:39 Total Protein 4.9 g/dL (6.3-8.2) L 06/14/20 05:23 Albumin 2.4 g/dL (3.9-5) L 06/14/20 05:23 Albumin/Globulin Ratio 1.0 % 06/14/20 05:23 Triglycerides 103 mg/dL (2-149) 06/06/20 10:19 Cholesterol 84 mg/dL (50-199) 06/06/20 10:19 LDL Cholesterol Direct 28 mg/dL (50-130) L 06/06/20 10:19 HDL Cholesterol 44 mg/dL (40-59) 06/06/20 10:19 Cholesterol/HDL Ratio 1.90 % 06/06/20 10:19 Vitamin B12 1170 pg/mL (211-911) H 06/10/20 14:49 RBC Folic Acid 829 ng/mL (>280) 06/10/20 10:44 TSH 4.440 mlU/mL (0.270-4.200) H 06/06/20 10:19 Free T4 1.55 ng/dL (0.76-1.46) H 06/06/20 10:19 PTH Intact 271.9 pg/mL (15-65) H 06/08/20 05:15 Urine Color Yellow (Yellow) 06/06/20 14:02 Urine Turbidity Cloudy (Clear) 06/06/20 14:02 Urine pH 6.0 (5.0-7.0) 06/06/20 14:02 Ur Specific [place] 1.013 (1.003-1.030) 06/06/20 14:02 Urine Protein 100 mg/dl mg/dL (Negative) 06/06/20 14:02 Urine Glucose (UA) Neg mg/dL (Negative) 06/06/20 14:02 Urine Ketones Neg mg/dL (Negative) 06/06/20 14:02 Urine Blood Sm (Negative) 06/06/20 14:02 Urine Nitrite Neg (Negative) 06/06/20 14:02 Urine Bilirubin Neg (Negative) 06/06/20 14:02 Urine Urobilinogen < 2.0 mg/dL (<2.0) 06/06/20 14:02 Ur Leukocyte Esterase Lg (Negative) 06/06/20 14:02 Urine WBC (Auto) > 182.0 /HPF (0.0-6.0) H 06/06/20 14:02 Urine RBC (Auto) 55.0 /HPF (0.0-6.0) 06/06/20 14:02 U Epithel Cells (Auto) 1.0 /HPF (0-13.0) 06/06/20 14:02 Urine WBC Clumps 2+ /HPF 06/06/20 14:02 Urine Creatinine 57.0 mg/dL (0.1-20.0) H 06/06/20 21:05 Urine Sodium 85 mmol/L 06/06/20 21:05 Random Vancomycin 9.8 ug/mL (0-40.0) 06/09/20 04:30 Urine Opiates Screen Presumptive negative 06/06/20 14:02 Urine Methadone Screen Presumptive negative 06/06/20 14:02 Ur Barbiturates Screen Presumptive negative 06/06/20 14:02 Ur Phencyclidine Scrn Presumptive negative 06/06/20 14:02 Ur Amphetamines Screen Presumptive negative 06/06/20 14:02 U Benzodiazepines Scrn Presumptive negative 06/06/20 14:02 Urine Cocaine Screen Presumptive negative 06/06/20 14:02 U Marijuana (THC) Screen Presumptive negative 06/06/20 14:02 Drugs of Abuse Note Disclamer 06/06/20 14:02 Plasma/Serum Alcohol < 0.01 % (0-0.07) 06/06/20 10:19 C. difficile Tox (PCR) Negative (Negative) 06/08/20 Unknown Coronavirus (PCR) Positive (Negative) A 06/22/20 10:00 Blood Type O POSITIVE 06/15/20 11:00 Antibody Screen Negative 06/15/20 11:00 Crossmatch See Detail 06/15/20 11:00 Torres/IV: Voiding Method Indwelling Catheter Active Medications - Current Medications Current Medications: Generic Name Dose Route Start Last Admin Trade Name Freq PRN Reason Stop Dose Admin Acetaminophen 650 mg 06/06/20 15:00 06/24/20 06:09 Acetaminophen 325 Mg Tab PO 650 mg Q6H PRN Administration Pain, Mild (1-3) Albuterol 2.5 mg 06/06/20 15:00 Albuterol 2.5 Mg/3 Ml Nebu IH Q3HRT PRN Shortness Of Breath Allopurinol 100 mg 06/07/20 10:00 06/29/20 11:55 Allopurinol 100 Mg Tab PO 100 mg QDAY YELENA Administration Calcium Carbonate/Glycine 500 mg 06/07/20 10:00 06/29/20 11:55 Calcium Carbonate 500 Mg Tab Chew PO 500 mg QDAY YELENA Administration Cholecalciferol 2,000 unit 06/07/20 10:00 06/29/20 11:55 Cholecalciferol (Vit D3) 1000 Unit (25 Mcg) Tab PO 2,000 unit QDAY YELENA Administration Cholestyramine Resin 4 gm 06/12/20 22:00 06/29/20 12:27 Cholestyramine (With Sugar) 4 Gm Packet PO 4 gm BID YELENA Administration Dicyclomine HCl 10 mg 06/06/20 20:00 06/29/20 12:28 Dicyclomine 10 Mg Cap PO Not Given TID YELENA Famotidine 20 mg 06/13/20 10:00 06/29/20 11:55 Famotidine 20 Mg Tab PO 20 mg QDAY YELENA Administration Hydrophilic Ointment 1 applic 06/24/20 11:00 06/25/20 07:47 Lip Therapy Vaseline TP 1 applic DIRECT PRN Administration Dry Lips Loperamide HCl 2 mg 06/22/20 12:30 06/27/20 10:12 Loperamide 2 Mg Cap PO 2 mg Q2H PRN Administration Diarrhea Magnesium Citrate 300 ml 06/06/20 16:20 Magnesium Citrate 300 Ml Oral Liqd PO QDAY PRN Constipation Metoprolol Tartrate 25 mg 06/09/20 22:00 06/29/20 11:55 Metoprolol Tartrate 25 Mg Tab PO 25 mg BID YELENA Administration Oxycodone/Acetaminophen 1 tab 06/24/20 12:30 06/28/20 04:18 Oxycodone /Acetaminophen 5-325mg Tab PO 1 tab Q4H PRN Administration Pain, Moderate (4-6) Pravastatin Sodium 10 mg 06/06/20 22:00 06/28/20 21:12 Pravastatin 20 Mg Tab PO 10 mg QHS YELENA Administration Sodium Bicarbonate 650 mg 06/16/20 20:00 06/29/20 12:28 Sodium Bicarbonate 650 Mg Tab PO Not Given TID YELENA Sodium Chloride 10 ml 06/06/20 15:00 06/29/20 11:56 Sodium Chloride 0.9% 10 Ml Flush Syringe IV 10 ml BID YELENA Administration Sodium Chloride 10 ml 06/06/20 15:00 Sodium Chloride 0.9% 10 Ml Flush Syringe IV PRN PRN LINE FLUSH Tamsulosin HCl 0.4 mg 06/14/20 11:00 06/29/20 11:55 Tamsulosin 0.4 Mg Cap PO 0.4 mg QDAY YELENA Administration Zinc Oxide 1 applic 06/25/20 11:00 06/29/20 12:28 Zinc Oxide 20% Oint 28.35 Gm TP 1 applic BID YELENA Administration Nutrition/Malnutrition Assess - Dietary Evaluation Nutrition/Malnutrition Findings: Nutrition Notes Start: 06/08/20 11:43 Freq: Status: Active Protocol: Document 06/28/20 14:06 CW (Rec: 06/28/20 14:11 CW [email or web address]) Nutrition Notes Initial or Follow up Reassessment Current Diagnosis Acute Kidney Injury,Diabetes, Hypertension Other Pertinent Diagnosis COVID 19+, AMS, Dementia, UTI, metabolic encephalopathy, ?s/ p CVA? Current Diet Mechanical soft diet + ONS BID Labs/Tests Na 135 Pertinent Medications reviewed Height 5 ft 8 in Weight 87.2 kg [place] Body Weight (kg) 70.00 BMI 29.2 Weight Status Overweight Subjective/Other Information F/U for intakes/ONS tolerance/ POC. Pt continues to eat very little of meals but drinks 100 % apple ONS. Will increase ONS to QID d/t poor intake of meals. Percent of energy/protein needs met: 34%/23% Burn Absent Trauma Absent Difficulty In Swallowing Skin Integrity/Comment Stage 1 pressure ulcer Current % PO Poor (25-49%) Minimum of two criteria Yes Energy Intake (severe) < or equal to 50% Estimated Energy Requirement > or equal to 5 days Fluid Accumulation Mild (non-severe) Reduced Block Greaser Strength Measurably Reduced (severe) #3 Nutrition Diagnosis Malnutrition Diagnosis Progress(for reassessment Continues documentation) #2 Nutrition Diagnosis Increased nutrient needs ( specify in comment below) Diagnosis Progress(for reassessment Continues documentation) #1 Nutrition Diagnosis Inadequate oral intake As Evidenced by Signs and Symptoms Pt drinking 100% of apple ONS Diagnosis Progress(for reassessment Improved documentation) Is patient on ventilator? No Is Patient Ambulatory and/or Out of Bed Yes REE-([facility]-ambulatory/OOB) [ [id number] [id number]] Calculation Used for Recommendations [facility] Additional Notes protein needs: 104 - 131g (1. 2 - 1.5g/kgBW for ISAAC) fluid needs: 1 ml/kcal Nutrition Intervention Change Diet Order: Continue Mechanical Soft Diet and ONS Add Supplement/Snack (indicate name/kcal Ensure Clear QID /protein ) Provides kCal: 960 Provides Protein (gm) 32 Goal #1 Meet at least 75% of kcal and proteins via PO and ONS Goal #2 wound healing Anticipated Discharge Needs: Mechanical Soft diet + ONS QID (apple) Follow-Up By: 07/01/20 Additional Comments F/U intakes and ONS tolerance; POC
--- NOTE | 2020-06-29 13:07 | Progress Note ---
Assessment and Plan 1. Acute kidney injury: Vasomotor ISAAC in the setting of shock. Renal US negative for hydro. Monitor renal function. Creatinine level is better. Avoid nephrotoxic agents. Meds dosage based on GFR. 2. FEN: Hypernatremia, improved. Hypokalemia, improved, monitor. Metabolic acidosis, improved. Edema, Lasix. Monitor volume status and lytes. 3. Sepsis with shock: Resolved, s/p abx. 4. UTI: S/p Abx. 5. Acute hypoxemic respiratory failure: CXR clear. Initial COVID test negative. Repeat Covid test positive. On RA. 6. Colitis: C.diff negative. 7. Metabolic encephalopathy: Monitor. 8. H/o Dementia: Supportive care. 9. H/o HTN: Monitor BP. 10. Anemia, POA: Monitor. Subjective: Patient was seen and examined at the bedside. No new complaint. Objective: General appearance: well-developed, appears stated age, not in distress HEENT: ATNC Neck: trachea midline Respiratory: ctab Heart: regular, S1S2, no murmur Gastrointestinal: soft, normoactive bowel sounds, not tender Integumentary: sacral wound Ext: extremity edema noted Neurologic: alert, conversing, able to move extremities : Hair catheter Subjective Date of service: 06/29/20 Principal diagnosis: shock Objective - Vital Signs Vital signs: Vital Signs - 12hr 06/29/20 06/29/20 05:18 11:55 Temperature 98.1 F Pulse Rate 86 86 Respiratory 18 Rate Blood Pressure 131/70 [Right] O2 Sat by Pulse 99 Oximetry - Lab 06/20/20 06:00 06/27/20 07:37 Most recent lab results ABG pH 7.329 pH Units (7.350-7.450) L 06/06/20 11:18 ABG pCO2 27.8 mm Hg 06/06/20 11:18 ABG pO2 258.1 mm Hg (80.0-90.0) H 06/06/20 11:18 ABG HCO3 14.3 mmol/L (20.0-26.0) L 06/06/20 11:18 ABG O2 Saturation 99.4 % (95.0-99.0) H 06/06/20 11:18 Calcium 7.1 mg/dL (8.4-10.2) L 06/27/20 07:37 Phosphorus 2.50 mg/dL (2.5-4.5) 06/24/20 08:29 Magnesium 1.80 mg/dL (1.7-2.3) 06/24/20 08:29 Urine Creatinine 57.0 mg/dL (0.1-20.0) H 06/06/20 21:05 Urine Sodium 85 mmol/L 06/06/20 21:05 Medications & Allergies - Medications Allergies/Adverse Reactions: Allergies No Known Allergies Allergy (Verified 06/06/20 15:21) Home Medications: Home Medications Medication Instructions Recorded Confirmed Last Taken Type Amlodipine Besylate [Norvasc] 5 mg PO QDAY 06/06/20 06/06/20 Unknown History Calcium Carb/Magnesium Hydrox 500 mg PO QDAY 06/06/20 06/06/20 Unknown History [Antacid 1000-200 mg Tab Chew] Cholecalciferol (Vitamin D3) 2,000 unit PO QDAY 06/06/20 06/06/20 Unknown History [Vitamin D3 2,000 UNIT CAP] Dicyclomine [Bentyl] 10 mg PO TID 06/06/20 06/06/20 Unknown History Insulin Lispro [Insulin Lispro 10 unit SQ TID 06/06/20 06/06/20 Unknown History Kwikpen U-100] Melatonin [Melatonin 3MG TAB] 6 mg PO QHS 06/06/20 06/06/20 Unknown History Pantoprazole [Protonix TAB] 40 mg PO QDAY 06/06/20 06/06/20 Unknown History Pioglitazone HCl [Actos] 30 mg PO QDAY 06/06/20 06/06/20 Unknown History Pravastatin Sodium [Pravastatin] 10 mg PO QHS 06/06/20 06/06/20 Unknown History allopurinoL [Zyloprim] 100 mg PO QDAY 06/06/20 06/06/20 Unknown History Famotidine [Pepcid] 20 mg PO QDAY #30 tablet 06/17/20 Unknown Rx Cholestyramine (with Sugar) 4 gm PO BID #60 powd.pack 06/23/20 Unknown Rx [Cholestyramine Packet] Loperamide [Imodium] 2 mg PO Q2H PRN #10 capsule 06/23/20 Unknown Rx Metoprolol [Lopressor TAB] 25 mg PO BID #60 tablet 06/23/20 Unknown Rx Tamsulosin [Flomax] 0.4 mg PO QDAY #30 cap 06/23/20 Unknown Rx levoFLOXacin [Levaquin] 750 mg PO QDAY #3 tablet 06/23/20 Unknown Rx metroNIDAZOLE [Flagyl] 500 mg PO Q8HR #9 tablet 06/23/20 Unknown Rx Active Medications: Generic Name Dose Route Start Last Admin Trade Name Freq PRN Reason Stop Dose Admin Acetaminophen 650 mg 06/06/20 15:00 06/24/20 06:09 Acetaminophen 325 Mg Tab PO 650 mg Q6H PRN Administration Pain, Mild (1-3) Albuterol 2.5 mg 06/06/20 15:00 Albuterol 2.5 Mg/3 Ml Nebu IH Q3HRT PRN Shortness Of Breath Allopurinol 100 mg 06/07/20 10:00 06/29/20 11:55 Allopurinol 100 Mg Tab PO 100 mg QDAY YELENA Administration Calcium Carbonate/Glycine 500 mg 06/07/20 10:00 06/29/20 11:55 Calcium Carbonate 500 Mg Tab Chew PO 500 mg QDAY YELENA Administration Cholecalciferol 2,000 unit 06/07/20 10:00 06/29/20 11:55 Cholecalciferol (Vit D3) 1000 Unit (25 Mcg) Tab PO 2,000 unit QDAY YELENA Administration Cholestyramine Resin 4 gm 06/12/20 22:00 06/29/20 12:27 Cholestyramine (With Sugar) 4 Gm Packet PO 4 gm BID YELENA Administration Dicyclomine HCl 10 mg 06/06/20 20:00 06/29/20 12:28 Dicyclomine 10 Mg Cap PO Not Given TID YELENA Famotidine 20 mg 06/13/20 10:00 06/29/20 11:55 Famotidine 20 Mg Tab PO 20 mg QDAY YELENA Administration Hydrophilic Ointment 1 applic 06/24/20 11:00 06/25/20 07:47 Lip Therapy Vaseline TP 1 applic DIRECT PRN Administration Dry Lips Loperamide HCl 2 mg 06/22/20 12:30 06/27/20 10:12 Loperamide 2 Mg Cap PO 2 mg Q2H PRN Administration Diarrhea Magnesium Citrate 300 ml 06/06/20 16:20 Magnesium Citrate 300 Ml Oral Liqd PO QDAY PRN Constipation Metoprolol Tartrate 25 mg 06/09/20 22:00 06/29/20 11:55 Metoprolol Tartrate 25 Mg Tab PO 25 mg BID YELENA Administration Oxycodone/Acetaminophen 1 tab 06/24/20 12:30 06/28/20 04:18 Oxycodone /Acetaminophen 5-325mg Tab PO 1 tab Q4H PRN Administration Pain, Moderate (4-6) Pravastatin Sodium 10 mg 06/06/20 22:00 06/28/20 21:12 Pravastatin 20 Mg Tab PO 10 mg QHS YELENA Administration Sodium Bicarbonate 650 mg 06/16/20 20:00 06/29/20 12:28 Sodium Bicarbonate 650 Mg Tab PO Not Given TID YELENA Sodium Chloride 10 ml 06/06/20 15:00 06/29/20 11:56 Sodium Chloride 0.9% 10 Ml Flush Syringe IV 10 ml BID YELENA Administration Sodium Chloride 10 ml 06/06/20 15:00 Sodium Chloride 0.9% 10 Ml Flush Syringe IV PRN PRN LINE FLUSH Tamsulosin HCl 0.4 mg 06/14/20 11:00 06/29/20 11:55 Tamsulosin 0.4 Mg Cap PO 0.4 mg QDAY YELENA Administration Zinc Oxide 1 applic 06/25/20 11:00 06/29/20 12:28 Zinc Oxide 20% Oint 28.35 Gm TP 1 applic BID YELENA Administration
[2020-06-29] MEDS: oxyCODONE /ACETAMINOPHEN 5-325MG TAB PO PRN (16:14)
[2020-06-29] MEDS: FUROSEMIDE 40 MG TAB PO SCH (17:34)
[2020-06-29] MEDS: PRAVASTATIN 20 MG TAB PO SCH (23:06)
[2020-06-30] MEDS: FUROSEMIDE 40 MG TAB PO SCH (05:20)
[2020-06-30] MEDS: CHOLECALCIFEROL (VIT D3) 1000 UNIT (25 mcg) TAB PO SCH (10:31)
[2020-06-30] MEDS: CALCIUM CARBONATE 500 MG TAB CHEW PO SCH (10:31)
[2020-06-30] MEDS: METOPROLOL TARTRATE 25 MG TAB PO SCH ×2 (10:31→21:58)
[2020-06-30] MEDS: TAMSULOSIN 0.4 MG CAP PO SCH (10:32)
[2020-06-30] MEDS: oxyCODONE /ACETAMINOPHEN 5-325MG TAB PO PRN (10:32)
[2020-06-30] MEDS: FAMOTIDINE 20 MG TAB PO SCH (10:32)
[2020-06-30] MEDS: allopurinoL 100 MG TAB PO SCH (10:32)
[2020-06-30] MEDS: SODIUM BICARBONATE 650 MG TAB PO SCH ×3 (11:46→20:50)
[2020-06-30] MEDS: CHOLESTYRAMINE (WITH SUGAR) 4 GM PACKET PO SCH ×2 (11:47→21:16)
[2020-06-30] MEDS: DICYCLOMINE 10 MG CAP PO SCH ×3 (11:47→20:50)
[2020-06-30] MEDS: ZINC OXIDE 20% OINT 28.35 GM TP SCH ×2 (12:47→21:17)
--- NOTE | 2020-06-30 13:00 | Progress Note ---
Assessment and Plan 1. Acute kidney injury: Vasomotor ISAAC in the setting of shock. Renal US negative for hydro. Monitor renal function. Creatinine level is better. Avoid nephrotoxic agents. Meds dosage based on GFR. 2. FEN: Hypernatremia, improved. Hypokalemia, improved, monitor. Metabolic acidosis, improved. Edema, Lasix. Monitor volume status and lytes. 3. Sepsis with shock: Resolved, s/p abx. 4. UTI: S/p Abx. 5. Acute hypoxemic respiratory failure: CXR clear. Initial COVID test negative. Repeat Covid test positive. On RA. 6. Colitis: C.diff negative. 7. Metabolic encephalopathy: Monitor. 8. H/o Dementia: Supportive care. 9. H/o HTN: Monitor BP. 10. Anemia, POA: Monitor. Subjective: Patient was seen and examined at the bedside. No new complaint. Objective: General appearance: well-developed, appears stated age, not in distress HEENT: ATNC Neck: trachea midline Respiratory: ctab Heart: regular, S1S2, no murmur Gastrointestinal: soft, normoactive bowel sounds, not tender Integumentary: sacral wound Ext: trace extremity edema noted Neurologic: alert, conversing, able to move extremities : Hair catheter Subjective Date of service: 06/30/20 Principal diagnosis: shock Objective - Vital Signs Vital signs: Vital Signs - 12hr 06/30/20 06/30/20 04:55 10:31 Temperature 98.0 F Pulse Rate 77 77 Respiratory 18 Rate Blood Pressure 170/76 170/76 O2 Sat by Pulse 99 Oximetry - Lab 06/20/20 06:00 06/30/20 12:19 Most recent lab results ABG pH 7.329 pH Units (7.350-7.450) L 06/06/20 11:18 ABG pCO2 27.8 mm Hg 06/06/20 11:18 ABG pO2 258.1 mm Hg (80.0-90.0) H 06/06/20 11:18 ABG HCO3 14.3 mmol/L (20.0-26.0) L 06/06/20 11:18 ABG O2 Saturation 99.4 % (95.0-99.0) H 06/06/20 11:18 Calcium 7.1 mg/dL (8.4-10.2) L 06/27/20 07:37 Phosphorus 2.50 mg/dL (2.5-4.5) 06/24/20 08:29 Magnesium 1.80 mg/dL (1.7-2.3) 06/24/20 08:29 Urine Creatinine 57.0 mg/dL (0.1-20.0) H 06/06/20 21:05 Urine Sodium 85 mmol/L 06/06/20 21:05 Medications & Allergies - Medications Allergies/Adverse Reactions: Allergies No Known Allergies Allergy (Verified 06/06/20 15:21) Home Medications: Home Medications Medication Instructions Recorded Confirmed Last Taken Type Amlodipine Besylate [Norvasc] 5 mg PO QDAY 06/06/20 06/06/20 Unknown History Calcium Carb/Magnesium Hydrox 500 mg PO QDAY 06/06/20 06/06/20 Unknown History [Antacid 1000-200 mg Tab Chew] Cholecalciferol (Vitamin D3) 2,000 unit PO QDAY 06/06/20 06/06/20 Unknown History [Vitamin D3 2,000 UNIT CAP] Dicyclomine [Bentyl] 10 mg PO TID 06/06/20 06/06/20 Unknown History Insulin Lispro [Insulin Lispro 10 unit SQ TID 06/06/20 06/06/20 Unknown History Kwikpen U-100] Melatonin [Melatonin 3MG TAB] 6 mg PO QHS 06/06/20 06/06/20 Unknown History Pantoprazole [Protonix TAB] 40 mg PO QDAY 06/06/20 06/06/20 Unknown History Pioglitazone HCl [Actos] 30 mg PO QDAY 06/06/20 06/06/20 Unknown History Pravastatin Sodium [Pravastatin] 10 mg PO QHS 06/06/20 06/06/20 Unknown History allopurinoL [Zyloprim] 100 mg PO QDAY 06/06/20 06/06/20 Unknown History Famotidine [Pepcid] 20 mg PO QDAY #30 tablet 06/17/20 Unknown Rx Cholestyramine (with Sugar) 4 gm PO BID #60 powd.pack 06/23/20 Unknown Rx [Cholestyramine Packet] Loperamide [Imodium] 2 mg PO Q2H PRN #10 capsule 06/23/20 Unknown Rx Metoprolol [Lopressor TAB] 25 mg PO BID #60 tablet 06/23/20 Unknown Rx Tamsulosin [Flomax] 0.4 mg PO QDAY #30 cap 06/23/20 Unknown Rx levoFLOXacin [Levaquin] 750 mg PO QDAY #3 tablet 06/23/20 Unknown Rx metroNIDAZOLE [Flagyl] 500 mg PO Q8HR #9 tablet 06/23/20 Unknown Rx Active Medications: Generic Name Dose Route Start Last Admin Trade Name Freq PRN Reason Stop Dose Admin Acetaminophen 650 mg 06/06/20 15:00 06/24/20 06:09 Acetaminophen 325 Mg Tab PO 650 mg Q6H PRN Administration Pain, Mild (1-3) Albuterol 2.5 mg 06/06/20 15:00 Albuterol 2.5 Mg/3 Ml Nebu IH Q3HRT PRN Shortness Of Breath Allopurinol 100 mg 06/07/20 10:00 06/30/20 10:32 Allopurinol 100 Mg Tab PO 100 mg QDAY YELENA Administration Calcium Carbonate/Glycine 500 mg 06/07/20 10:00 06/30/20 10:31 Calcium Carbonate 500 Mg Tab Chew PO 500 mg QDAY YELENA Administration Cholecalciferol 2,000 unit 06/07/20 10:00 06/30/20 10:31 Cholecalciferol (Vit D3) 1000 Unit (25 Mcg) Tab PO 2,000 unit QDAY YELENA Administration Cholestyramine Resin 4 gm 06/12/20 22:00 06/30/20 11:47 Cholestyramine (With Sugar) 4 Gm Packet PO 4 gm BID YELENA Administration Dicyclomine HCl 10 mg 06/06/20 20:00 06/30/20 11:47 Dicyclomine 10 Mg Cap PO 10 mg TID YELENA Administration Famotidine 20 mg 06/13/20 10:00 06/30/20 10:32 Famotidine 20 Mg Tab PO 20 mg QDAY YELENA Administration Furosemide 40 mg 06/29/20 15:00 06/30/20 05:20 Furosemide 40 Mg Tab PO 40 mg DAILY@0600 YELENA Administration Hydrophilic Ointment 1 applic 06/24/20 11:00 06/25/20 07:47 Lip Therapy Vaseline TP 1 applic DIRECT PRN Administration Dry Lips Loperamide HCl 2 mg 06/22/20 12:30 06/27/20 10:12 Loperamide 2 Mg Cap PO 2 mg Q2H PRN Administration Diarrhea Magnesium Citrate 300 ml 06/06/20 16:20 Magnesium Citrate 300 Ml Oral Liqd PO QDAY PRN Constipation Metoprolol Tartrate 25 mg 06/09/20 22:00 06/30/20 10:31 Metoprolol Tartrate 25 Mg Tab PO 25 mg BID YELENA Administration Oxycodone/Acetaminophen 1 tab 06/24/20 12:30 06/30/20 10:32 Oxycodone /Acetaminophen 5-325mg Tab PO 1 tab Q4H PRN Administration Pain, Moderate (4-6) Pravastatin Sodium 10 mg 06/06/20 22:00 06/29/20 23:06 Pravastatin 20 Mg Tab PO 10 mg QHS YELENA Administration Sodium Bicarbonate 650 mg 06/16/20 20:00 06/30/20 11:46 Sodium Bicarbonate 650 Mg Tab PO 650 mg TID YELENA Administration Sodium Chloride 10 ml 06/06/20 15:00 06/30/20 10:32 Sodium Chloride 0.9% 10 Ml Flush Syringe IV 10 ml BID YELENA Administration Sodium Chloride 10 ml 06/06/20 15:00 Sodium Chloride 0.9% 10 Ml Flush Syringe IV PRN PRN LINE FLUSH Tamsulosin HCl 0.4 mg 06/14/20 11:00 06/30/20 10:32 Tamsulosin 0.4 Mg Cap PO 0.4 mg QDAY YELENA Administration Zinc Oxide 1 applic 06/25/20 11:00 06/30/20 12:47 Zinc Oxide 20% Oint 28.35 Gm TP Not Given BID YELENA
--- NOTE | 2020-06-30 13:17 | Progress Note ---
Assessment and Plan Assessment and plan: 80-year-old male who is a resident of assisted living facility with vascular dementia, cerebral sclerosis, debility, diabetes mellitus who presents to the emergency department on 06/06 with complaints of lethargy and diminished cognition as per daughter he developed an episode of unresponsiveness while at breakfast at at his assisted living facility. Patient was found to have a urinary tract infection complicated by sepsis and septic shock, acute kidney injury, toxic metabolic encephalopathy as well as metabolic acidosis. Patient was hypotensive with systolic blood pressures in the 50s and was initiated on vasopressor support in the emergency department. Patient was admitted to the hospital serv ice with consults to nephrology and [facility]. Hospital course 06/07: Patient remains on dopamine, vasopressin and Levophed. Nephrology has started the patient on sodium bicarbonate drip for metabolic acidosis. Infectious disease initiated vancomycin in addition to the cefepime and ordered a C. difficile. 06/08: Patient has gram-positive cocci bacteremia in 03/07 bottles which grew to be coag negative staph coccus and he has repeat blood cultures in progress. Urine culture has no growth to date and he is on IV vancomycin and cefepime. Yesterday we ordered a C. difficile PCR which is pending. Patient had a moment of tachycardia into the 130s and a stat EKG was obtained. Patient was given amiodarone bolus by [facility] and cardiology was consulted. Patient is hyperchloremic today however his metabolic acidosis and BUN/creatinine is slightly improved to 93/3.2 from 100/3.6 and his repeat lactic acid is 1.5. At the time my examination patient was on Levophed at 6, vasopressin 0.03 and dopamine at 6. This morning patient failed his swallow eval and ST evaluation was ordered. Of note patient's echocardiogram shows reduced 15 to 20% with borderline left ventricular hypertrophy. 06/09: This morning his speech evaluation was completed and he has been cleared for mechanical soft diet with thin liquids. Patient complained of right-sided chest pain with radiation to shoulders and a stat EKG cardiac enzymes were ordered. Patient was recultured yesterday and those have no growth to date and his vancomycin was stopped. Infectious disease team recommends removal of Torres catheter when feasible and a CT abdomen/pelvis when stable. Patient has been cleared to transfer to the floor by cardiology and [facility]. 06/10/2020; patient is on IV cefepime for sepsis due to UTI day 3 out of 5. Vancomycin discontinued. Patient is complaining pleuritic chest pain. Patient was evaluated by cardiology for elevated troponin and episode of A. fib on admission. Cardiology discontinued amiodarone and put her on Lopressor. Cardiology recommend against anticoagulation because of patient's anemia. Hemoglobin this morning was 7.4 and anemia work-up is in progress. I did ordered CT abdomen and pelvis. PT OT evaluation. Patient has ISAAC and nephrology is following. Patient has rectal tube and liquid stool in the bag. I ordered stool for C. difficile. We will continue to monitor. 06/11/2020; patient is on cefepime day /. CT abdomen and pelvis was done and significant for colitis, ischemic colitis is possibility given hypotension and elevated lactic acid level. I will consult GI. Patient has episode of A. fib for less than 24 hours, cardiology was consulted and recommend to be on Lopressor. No need for coagulation because of his anemia. Hemoglobin this morning is improved to 8. Anemia work-up was done, no iron deficiency anemia identified. ISAAC is improving. C. difficile was negative. 06/12/2020; continue cefepime per ID recommendation. CT abdomen and pelvis is significant for ischemic colitis likely due to septic shock, hypotension. Patient was seen by GI and recommend no further intervention at this time. Patient had episode of A. fib on admission for less than 24 hours and cardiology recommend to continue on Lopressor, no anticoagulation needed. Hemoglobin is improving. Patient came from assisted living facility. Patient need Covid test before discharge. ISAAC is improving. Creatinine this morning was 1.7. Nephrology is following. OT evaluated and recommend subacute rehab, PT evaluation is pending. 06/13: Replace K and Mag, continue to monitor renal fuction, Continue abx per ID, c.diff negative. patient still with Rectal tube and Torres but will re- evaluate for possible discontinuation. Questran started by GI. Will continue to monitor and replace electrolytes Discussed with nursing staff to change torres to condom catheter CM to try and ascertain patients functional status prior to hospitalization 06/14: Patient showing some clinical improvement Torres replaced due to urinary retention about 1000 cc of clear urine removed. Flomax started. PT OT consu lted as patient is noted to have been ambulatory prior to this admission will likely need SNF placement. Diarrhea consistency is improving anticipate discharge in 24 to 48 hours once approval is obtained. Cardiology input is noted Lopressor 25 mg p.o. twice daily possible addition of SABIHA inhibitor or ARB when okay with nephrology as regular this is a is improving. At this time no AC for A. fib management due to anemia and the transient nature of the A. fib which was less than 24 hours. 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 Unknown etiology or chronicity of these diagnoses. No current clinical evidence of acutely decompensated HF. Per [place] records, pt saw [place] [facility]ology in 1998 and underwent LHC which did not show any significant findings. Continue with conservative cardiac management given pt's advanced age, dementia and multiple co-morbidities. Recommend pt follow up in our office with Dr. Rosa within 2 weeks of discharge ([phone]). 06/15: Continue supportive care. Will give a unit of PRBC and anticipate discharge today or tomorrow once approval from insurance company obtained. PATIENT will need urology follow up outpatient and also cardiology outpatient. Discussed with patient and Case management Continue PT OT 06/16: Still awaiting prior approval from the insurance company for patient to be discharged. Continue supportive care thrombocytopenia noted again antiplatelets are on hold. We will continue to monitor anticipate discharge once prior authorization is received from insurance [employer]. Continue rehab therapy while in house 06/17: Severe hyperkalemia noted in the setting of renal dysfunction. Will hold discharge. Also patient with intermittent fevers culture still on resolved. Bolus of fluid given will also give some Kayexalate to correct hyperkalemia. 06/18: Still with low-grade fever. White count still normal. Potassium mild hypokalemia. Will monitor closely renal function showing some improvement. If continues to improve we will anticipate discharge tomorrow. Still with elevated troponin but improved compared to prior. No respiratory compromise noted at this time diarrhea still present. Will discuss with ID if patient should empirically be treated with p.o. vancomycin despite negative C. difficile for with Flagyl. 06/19: Considering noted deformity on bilateral shoulders will obtain an x-ray just to ensure that there is no other acute event. I reviewed the chart and not has been done. Continue bicarb drip may need to decrease rate but will defer to sewer digger. Awaiting labs from today. Anticipate discharge in a.m. we will also rule out bilateral upper extremity DVT due to the swelling. 4/19: Patient is a 80-year-old male who presented to the hospital for dialysis related facility with complaints of lethargy diminished cognition diagnosed with septic shock with diarrhea but with C. difficile negative during hospital stay was noted to be cardiac arrhythmia with tachycardia resolved with amiodarone. Was also noted to have ISAAC likely secondary to ATN showed some improvement and stabilized. Diarrhea persisted was managed with fecal management system with ID input noted. Fortunately the past few days has been having recurrent fever today noted to have a distended abdomen although nontender CT abdomen and pelvis with oral contrast was added following clearance from sewer digger. 06/21. Patient seen and examined at bedside this morning. Ultrasound of the upper extremities showed no DVT. He has been advised to elevate right upper extremity to improve swelling. Potassium is very low today he will get potassium replacement. Plan for possible discharge tomorrow. Remained afebrile overnight 06/22. Having electrolyte abnormalities. Repleting. Will repeat levels this PM. On Antibiotics for colitis. Will dc when his electrolytes become stable. 06/23. Plan for discharge today as electrolytes have improved. COVID-19 test was positive so he would not go to [facility] as per case filler. Plan to search for facilities that will accept him 06/24. Electrolytes have normalized. Awaiting placement 06/25. Complains of pain around the buttock area. Resumed home dose oxycodone yesterday. 06/26. Needs placement. To complete antibiotics tomorrow. 06/27. Pending placement. Continue wound care. Vitals stable 06/28: Patient still awaiting placement. Noted to have swelling of the right upper extremity. Appears to be dependent. Discussed with nursing staff to elevate upper extremity. 06/29: Patient seen and examined, Continue supportive discussed with case management today will work on seeing if the facility he came from will accept him back. Still recommended outpatient urology evaluation. Upper extremity swelling continues to show some improvement with elevation. 06/30: No new complaints at this time. We will recheck her lab test to evaluate renal function. Of also discussed with case management for continued PT OT evaluation. While awaiting return to outpatient facility. Septic Shock-resolved. Metabolic encephalopathy. Coag negative Staphylococcus / bottles. Likely contaminant Urinary tract infection. Urine culture showed no growth. Extensive colitis: C. difficile negative. Acute hypoxic respiratory failure-improved. Acute kidney injury secondary to vasomotor nephropathy. Atrial fibrillation with RVR-rate is well controlled. On amiodarone. Cardiology recommendations appreciated. No indication for anticoagulation due to transient history of atrial fibrillation and anemia as per cardiology. Recurrent fevers. Electrolyte abnormalities-Resolved COVID-19 infection-stable. Sacral ulcer-regular turning. Zinc oxide barrier cream PRN Chronic bilateral shoulder distal care Discharge planning. Plan to discharge to skilled facility when accepted - Patient Problems (1) Acute kidney injury (ISAAC) with acute tubular necrosis (ATN) Current Visit: Yes Status: Acute (2) Hyperkalemia Current Visit: Yes Status: Acute (3) Metabolic acidosis Current Visit: Yes Status: Acute (4) Septic shock Current Visit: Yes Status: Acute History Interval history: History Interval history: Patient seen and examined, patient reports feels cold but otherwise no new complaints no new fever, Continue supportive care. Hospitalist Physical - Physical exam Narrative exam: VITAL SIGNS: Reviewed. GENERAL: Awake HEAD: No signs of head trauma. EYES: Pupils are equal. Extraocular motions intact. MOUTH: Oropharynx is normal. NECK: No adenopathy, no JVD. CHEST: Chest with diminished breath sounds bilaterally. No wheezes, rales, or rhonchi. CARDIAC: normal S1 and S2, without murmurs, gallops, or rubs. ABDOMEN: Soft, non tender and non distended. No rebound or guarding, and no masses palpated. Bowel Sounds normal. MUSCULOSKELETAL: Upper extremity swelling right more than left, Improving some NEUROLOGIC EXAM: Alert and oriented x3. Mild contractions. SKIN: No obvious lesions - Constitutional Vitals: Temp Pulse Resp BP Pulse Ox 98.0 F 77 18 170/76 99 06/30/20 04:55 06/30/20 10:31 06/30/20 04:55 06/30/20 10:31 06/30/20 04:55 General appearance: Present: no acute distress, well-nourished HEART Score - HEART Score Troponin: Troponin T 0.141 ng/mL (0.00-0.029) H* 06/18/20 10:39 Results - Labs CBC & Chem 7: 06/20/20 06:00 06/27/20 07:37 Labs: Laboratory Last Values WBC 4.9 K/mm3 (4.5-11.0) 06/20/20 06:00 RBC 2.48 M/mm3 (3.65-5.03) L 06/20/20 06:00 Hgb 8.1 gm/dl (11.8-15.2) L 06/20/20 06:00 Hct 23.9 % (35.5-45.6) L 06/20/20 06:00 MCV 97 fl (84-94) H 06/20/20 06:00 MCH 33 pg (28-32) H 06/20/20 06:00 MCHC 34 % (32-34) 06/20/20 06:00 RDW 14.0 % (13.2-15.2) 06/20/20 06:00 Plt Count 279 K/mm3 (140-440) 06/20/20 06:00 Lymph % (Auto) 6.8 % (13.4-35.0) L 06/13/20 06:13 [place]ney % (Auto) 5.0 % (0.0-7.3) 06/13/20 06:13 Eos % (Auto) 1.7 % (0.0-4.3) 06/13/20 06:13 Baso % (Auto) 0.2 % (0.0-1.8) 06/13/20 06:13 Lymph # (Auto) 0.9 K/mm3 (1.2-5.4) L 06/13/20 06:13 [place] # (Auto) 0.7 K/mm3 (0.0-0.8) 06/13/20 06:13 Eos # (Auto) 0.2 K/mm3 (0.0-0.4) 06/13/20 06:13 Baso # (Auto) 0.0 K/mm3 (0.0-0.1) 06/13/20 06:13 Add Manual Diff Complete 06/16/20 12:50 Total Counted 100 06/16/20 12:50 Seg Neutrophils % 86.3 % (40.0-70.0) H 06/13/20 06:13 Seg Neuts % (Manual) 65.0 % (40.0-70.0) 06/16/20 12:50 Band Neutrophils % 20.0 % 06/16/20 12:50 Lymphocytes % (Manual) 6.0 % (13.4-35.0) L 06/16/20 12:50 Reactive Lymphs % (Man) 1.0 % 06/12/20 05:24 Monocytes % (Manual) 9.0 % (0.0-7.3) H 06/16/20 12:50 Eosinophils % (Manual) 2.0 % (0.0-4.3) 06/12/20 05:24 Nucleated RBC % Not Reportable 06/16/20 12:50 Seg Neutrophils # 11.9 K/mm3 (1.8-7.7) H 06/13/20 06:13 Seg Neutrophils # Man 7.2 K/mm3 (1.8-7.7) 06/16/20 12:50 Band Neutrophils # 2.2 K/mm3 06/16/20 12:50 Lymphocytes # (Manual) 0.7 K/mm3 (1.2-5.4) L 06/16/20 12:50 Abs React Lymphs (Man) 0.0 K/mm3 06/16/20 12:50 Monocytes # (Manual) 1.0 K/mm3 (0.0-0.8) H 06/16/20 12:50 Eosinophils # (Manual) 0.0 K/mm3 (0.0-0.4) 06/16/20 12:50 Basophils # (Manual) 0.0 K/mm3 (0.0-0.1) 06/16/20 12:50 Metamyelocytes # 0.0 K/mm3 06/16/20 12:50 Myelocytes # 0.0 K/mm3 06/16/20 12:50 Promyelocytes # 0.0 K/mm3 06/16/20 12:50 Blast Cells # 0.0 K/mm3 06/16/20 12:50 WBC Morphology Not Reportable 06/16/20 12:50 Hypersegmented Neuts Not Reportable 06/16/20 12:50 Hyposegmented Neuts Not Reportable 06/16/20 12:50 Hypogranular Neuts Not Reportable 06/16/20 12:50 Smudge Cells Not Reportable 06/16/20 12:50 Toxic Granulation Not Reportable 06/16/20 12:50 Toxic Vacuolation Not Reportable 06/16/20 12:50 Dohle Bodies Not Reportable 06/16/20 12:50 Pelger-Huet Anomaly Not Reportable 06/16/20 12:50 Denys Rods Not Reportable 06/16/20 12:50 Platelet Estimate Consistent w auto 06/16/20 12:50 Clumped Platelets Rare 06/16/20 12:50 Plt Clumps, EDTA Not Reportable 06/16/20 12:50 Large Platelets Rare 06/16/20 12:50 Giant Platelets Not Reportable 06/16/20 12:50 Platelet Satelliting Not Reportable 06/16/20 12:50 Plt Morphology Comment Not Reportable 06/16/20 12:50 RBC Morphology Normal 06/16/20 12:50 Dimorphic RBCs Not Reportable 06/16/20 12:50 Polychromasia Not Reportable 06/16/20 12:50 Hypochromasia Not Reportable 06/16/20 12:50 Poikilocytosis Not Reportable 06/16/20 12:50 Anisocytosis Not Reportable 06/16/20 12:50 Microcytosis Not Reportable 06/16/20 12:50 Macrocytosis Not Reportable 06/16/20 12:50 Spherocytes Not Reportable 06/16/20 12:50 Pappenheimer Bodies Not Reportable 06/16/20 12:50 Sickle Cells Not Reportable 06/16/20 12:50 Target Cells Not Reportable 06/16/20 12:50 Tear Drop Cells Not Reportable 06/16/20 12:50 Ovalocytes Not Reportable 06/16/20 12:50 Helmet Cells Not Reportable 06/16/20 12:50 [place] Bodies Not Reportable 06/16/20 12:50 [place] Rings Not Reportable 06/16/20 12:50 Dom Cells Not Reportable 06/16/20 12:50 Bite Cells Not Reportable 06/16/20 12:50 Crenated Cell Not Reportable 06/16/20 12:50 Elliptocytes Not Reportable 06/16/20 12:50 Acanthocytes (Spur) Not Reportable 06/16/20 12:50 Rouleaux Not Reportable 06/16/20 12:50 Hemoglobin C Crystals Not Reportable 06/16/20 12:50 Schistocytes Not Reportable 06/16/20 12:50 Malaria parasites Not Reportable 06/16/20 12:50 Chance Bodies Not Reportable 06/16/20 12:50 Hem Pathologist Commnt No 06/16/20 12:50 PT 16.3 Sec. (12.2-14.9) H 06/06/20 10:19 INR 1.33 (0.87-1.13) H 06/06/20 10:19 APTT 31.6 Sec. (24.2-36.6) 06/06/20 10:19 ABG pH 7.329 pH Units (7.350-7.450) L 06/06/20 11:18 ABG pCO2 27.8 mm Hg 06/06/20 11:18 ABG pO2 258.1 mm Hg (80.0-90.0) H 06/06/20 11:18 ABG HCO3 14.3 mmol/L (20.0-26.0) L 06/06/20 11:18 ABG O2 Saturation 99.4 % (95.0-99.0) H 06/06/20 11:18 ABG O2 Content 13.2 (0.0-44) 06/06/20 11:18 ABG Base Excess -10.5 mmol/L (-2.0-3.0) L 06/06/20 11:18 ABG Hemoglobin 9.1 gm/dl (14.0-18.0) L 06/06/20 11:18 ABG Carboxyhemoglobin 1.3 % (0.0-5.0) 06/06/20 11:18 ABG Methemoglobin Not Reportable 06/06/20 11:18 VBG pH 7.438 (7.320-7.420) H 06/06/20 10:19 Oxyhemoglobin 98.2 % (95.0-99.0) 06/06/20 11:18 FiO2 21 % 06/06/20 11:18 Sodium 135 mmol/L (137-145) L 06/27/20 07:37 Potassium 4.2 mmol/L (3.6-5.0) 06/27/20 07:37 Chloride 108.1 mmol/L (98-107) H 06/27/20 07:37 Carbon Dioxide 22 mmol/L (22-30) 06/27/20 07:37 Anion Gap 9 mmol/L 06/27/20 07:37 BUN 13 mg/dL (9-20) 06/27/20 07:37 Creatinine 1.0 mg/dL (0.8-1.3) 06/27/20 07:37 Estimated GFR > 60 ml/min 06/27/20 07:37 BUN/Creatinine Ratio 13 % 06/27/20 07:37 Glucose 78 mg/dL (75-100) 06/27/20 07:37 POC Glucose 87 mg/dL (70-105) 06/27/20 07:19 Lactic Acid 1.50 mmol/L (0.7-2.0) 06/08/20 05:15 Calcium 7.1 mg/dL (8.4-10.2) L 06/27/20 07:37 Phosphorus 2.50 mg/dL (2.5-4.5) 06/24/20 08:29 Magnesium 1.80 mg/dL (1.7-2.3) 06/24/20 08:29 Iron 54 ug/dL (49-181) 06/10/20 10:44 TIBC 157 mcg/dL (250-450) L 06/10/20 10:44 Ferritin 569.5 ng/mL (30.0-300.0) H 06/10/20 10:44 Total Bilirubin 0.20 mg/dL (0.1-1.2) 06/14/20 05:23 AST 19 units/L (5-40) 06/14/20 05:23 ALT 20 units/L (7-56) 06/14/20 05:23 Alkaline Phosphatase 55 units/L (35-129) 06/14/20 05:23 Ammonia 64.0 umol/L (25-60) H 06/06/20 10:19 Total Creatine Kinase 1212 units/L (55-170) H 06/09/20 12:57 CK-MB (CK-2) 12.1 ng/mL (0.0-4.0) H 06/09/20 12:57 CK-MB (CK-2) Rel Index 0.9 (0-4) 06/09/20 12:57 Troponin T 0.141 ng/mL (0.00-0.029) H* 06/18/20 10:39 Total Protein 4.9 g/dL (6.3-8.2) L 06/14/20 05:23 Albumin 2.4 g/dL (3.9-5) L 06/14/20 05:23 Albumin/Globulin Ratio 1.0 % 06/14/20 05:23 Triglycerides 103 mg/dL (2-149) 06/06/20 10:19 Cholesterol 84 mg/dL (50-199) 06/06/20 10:19 LDL Cholesterol Direct 28 mg/dL (50-130) L 06/06/20 10:19 HDL Cholesterol 44 mg/dL (40-59) 06/06/20 10:19 Cholesterol/HDL Ratio 1.90 % 06/06/20 10:19 Vitamin B12 1170 pg/mL (211-911) H 06/10/20 14:49 RBC Folic Acid 829 ng/mL (>280) 06/10/20 10:44 TSH 4.440 mlU/mL (0.270-4.200) H 06/06/20 10:19 Free T4 1.55 ng/dL (0.76-1.46) H 06/06/20 10:19 PTH Intact 271.9 pg/mL (15-65) H 06/08/20 05:15 Urine Color Yellow (Yellow) 06/06/20 14:02 Urine Turbidity Cloudy (Clear) 06/06/20 14:02 Urine pH 6.0 (5.0-7.0) 06/06/20 14:02 Ur Specific [place] 1.013 (1.003-1.030) 06/06/20 14:02 Urine Protein 100 mg/dl mg/dL (Negative) 06/06/20 14:02 Urine Glucose (UA) Neg mg/dL (Negative) 06/06/20 14:02 Urine Ketones Neg mg/dL (Negative) 06/06/20 14:02 Urine Blood Sm (Negative) 06/06/20 14:02 Urine Nitrite Neg (Negative) 06/06/20 14:02 Urine Bilirubin Neg (Negative) 06/06/20 14:02 Urine Urobilinogen < 2.0 mg/dL (<2.0) 06/06/20 14:02 Ur Leukocyte Esterase Lg (Negative) 06/06/20 14:02 Urine WBC (Auto) > 182.0 /HPF (0.0-6.0) H 06/06/20 14:02 Urine RBC (Auto) 55.0 /HPF (0.0-6.0) 06/06/20 14:02 U Epithel Cells (Auto) 1.0 /HPF (0-13.0) 06/06/20 14:02 Urine WBC Clumps 2+ /HPF 06/06/20 14:02 Urine Creatinine 57.0 mg/dL (0.1-20.0) H 06/06/20 21:05 Urine Sodium 85 mmol/L 06/06/20 21:05 Random Vancomycin 9.8 ug/mL (0-40.0) 06/09/20 04:30 Urine Opiates Screen Presumptive negative 06/06/20 14:02 Urine Methadone Screen Presumptive negative 06/06/20 14:02 Ur Barbiturates Screen Presumptive negative 06/06/20 14:02 Ur Phencyclidine Scrn Presumptive negative 06/06/20 14:02 Ur Amphetamines Screen Presumptive negative 06/06/20 14:02 U Benzodiazepines Scrn Presumptive negative 06/06/20 14:02 Urine Cocaine Screen Presumptive negative 06/06/20 14:02 U Marijuana (THC) Screen Presumptive negative 06/06/20 14:02 Drugs of Abuse Note Disclamer 06/06/20 14:02 Plasma/Serum Alcohol < 0.01 % (0-0.07) 06/06/20 10:19 C. difficile Tox (PCR) Negative (Negative) 06/08/20 Unknown Coronavirus (PCR) Positive (Negative) A 06/22/20 10:00 Blood Type O POSITIVE 06/15/20 11:00 Antibody Screen Negative 06/15/20 11:00 Crossmatch See Detail 06/15/20 11:00 Torres/IV: Voiding Method Indwelling Catheter Active Medications - Current Medications Current Medications: Generic Name Dose Route Start Last Admin Trade Name Freq PRN Reason Stop Dose Admin Acetaminophen 650 mg 06/06/20 15:00 06/24/20 06:09 Acetaminophen 325 Mg Tab PO 650 mg Q6H PRN Administration Pain, Mild (1-3) Albuterol 2.5 mg 06/06/20 15:00 Albuterol 2.5 Mg/3 Ml Nebu IH Q3HRT PRN Shortness Of Breath Allopurinol 100 mg 06/07/20 10:00 06/30/20 10:32 Allopurinol 100 Mg Tab PO 100 mg QDAY YELENA Administration Calcium Carbonate/Glycine 500 mg 06/07/20 10:00 06/30/20 10:31 Calcium Carbonate 500 Mg Tab Chew PO 500 mg QDAY YELENA Administration Cholecalciferol 2,000 unit 06/07/20 10:00 06/30/20 10:31 Cholecalciferol (Vit D3) 1000 Unit (25 Mcg) Tab PO 2,000 unit QDAY YELENA Administration Cholestyramine Resin 4 gm 06/12/20 22:00 06/30/20 11:47 Cholestyramine (With Sugar) 4 Gm Packet PO 4 gm BID YELENA Administration Dicyclomine HCl 10 mg 06/06/20 20:00 06/30/20 13:11 Dicyclomine 10 Mg Cap PO 10 mg TID YELENA Administration Famotidine 20 mg 06/13/20 10:00 06/30/20 10:32 Famotidine 20 Mg Tab PO 20 mg QDAY YELENA Administration Furosemide 40 mg 06/29/20 15:00 06/30/20 05:20 Furosemide 40 Mg Tab PO 40 mg DAILY@0600 YELENA Administration Hydrophilic Ointment 1 applic 06/24/20 11:00 06/25/20 07:47 Lip Therapy Vaseline TP 1 applic DIRECT PRN Administration Dry Lips Loperamide HCl 2 mg 06/22/20 12:30 06/27/20 10:12 Loperamide 2 Mg Cap PO 2 mg Q2H PRN Administration Diarrhea Magnesium Citrate 300 ml 06/06/20 16:20 Magnesium Citrate 300 Ml Oral Liqd PO QDAY PRN Constipation Metoprolol Tartrate 25 mg 06/09/20 22:00 06/30/20 10:31 Metoprolol Tartrate 25 Mg Tab PO 25 mg BID YELENA Administration Oxycodone/Acetaminophen 1 tab 06/24/20 12:30 06/30/20 10:32 Oxycodone /Acetaminophen 5-325mg Tab PO 1 tab Q4H PRN Administration Pain, Moderate (4-6) Pravastatin Sodium 10 mg 06/06/20 22:00 06/29/20 23:06 Pravastatin 20 Mg Tab PO 10 mg QHS YELENA Administration Sodium Bicarbonate 650 mg 06/16/20 20:00 06/30/20 13:14 Sodium Bicarbonate 650 Mg Tab PO 650 mg TID YELENA Administration Sodium Chloride 10 ml 06/06/20 15:00 06/30/20 10:32 Sodium Chloride 0.9% 10 Ml Flush Syringe IV 10 ml BID YELENA Administration Sodium Chloride 10 ml 06/06/20 15:00 Sodium Chloride 0.9% 10 Ml Flush Syringe IV PRN PRN LINE FLUSH Tamsulosin HCl 0.4 mg 06/14/20 11:00 06/30/20 10:32 Tamsulosin 0.4 Mg Cap PO 0.4 mg QDAY YELENA Administration Zinc Oxide 1 applic 06/25/20 11:00 06/30/20 12:47 Zinc Oxide 20% Oint 28.35 Gm TP Not Given BID YELENA Nutrition/Malnutrition Assess - Dietary Evaluation Nutrition/Malnutrition Findings: Nutrition Notes Start: 06/08/20 11:43 Freq: Status: Active Protocol: Document 06/28/20 14:06 CW (Rec: 06/28/20 14:11 CW [id number]) Nutrition Notes Initial or Follow up Reassessment Current Diagnosis Acute Kidney Injury,Diabetes, Hypertension Other Pertinent Diagnosis COVID 19+, AMS, Dementia, UTI, metabolic encephalopathy, ?s/ p CVA? Current Diet Mechanical soft diet + ONS BID Labs/Tests Na 135 Pertinent Medications reviewed Height 5 ft 8 in Weight 87.2 kg Erwin Body Weight (kg) 70.00 BMI 29.2 Weight Status Overweight Subjective/Other Information F/U for intakes/ONS tolerance/ POC. Pt continues to eat very little of meals but drinks 100 % apple ONS. Will increase ONS to QID d/t poor intake of meals. Percent of energy/protein needs met: 34%/23% Burn Absent Trauma Absent Difficulty In Swallowing Skin Integrity/Comment Stage 1 pressure ulcer Current % PO Poor (25-49%) Minimum of two criteria Yes Energy Intake (severe) < or equal to 50% Estimated Energy Requirement > or equal to 5 days Fluid Accumulation Mild (non-severe) Reduced Knurling Machine Tender Strength Measurably Reduced (severe) #3 Nutrition Diagnosis Malnutrition Diagnosis Progress(for reassessment Continues documentation) #2 Nutrition Diagnosis Increased nutrient needs ( specify in comment below) Diagnosis Progress(for reassessment Continues documentation) #1 Nutrition Diagnosis Inadequate oral intake As Evidenced by Signs and Symptoms Pt drinking 100% of apple ONS Diagnosis Progress(for reassessment Improved documentation) Is patient on ventilator? No Is Patient Ambulatory and/or Out of Bed Yes REE-([place]-St. Jeor-ambulatory/OOB) [ [id number] [id number]] Calculation Used for Recommendations [place]-St Jeor Additional Notes protein needs: 104 - 131g (1. 2 - 1.5g/kgBW for ISAAC) fluid needs: 1 ml/kcal Nutrition Intervention Change Diet Order: Continue Mechanical Soft Diet and ONS Add Supplement/Snack (indicate name/kcal Ensure Clear QID /protein ) Provides kCal: 960 Provides Protein (gm) 32 Goal #1 Meet at least 75% of kcal and proteins via PO and ONS Goal #2 wound healing Anticipated Discharge Needs: Mechanical Soft diet + ONS QID (apple) Follow-Up By: 07/01/20 Additional Comments F/U intakes and ONS tolerance; POC
[2020-06-30 13:37] LABS: BUN/Creatinine Ratio 14; Blood Urea Nitrogen 11 mg/dL (9-20); Calcium 7.1 mg/dL (8.4-10.2); Hemolysis Index 8
[2020-06-30] MEDS: PRAVASTATIN 20 MG TAB PO SCH (21:15)
[2020-07-01] MEDS: FUROSEMIDE 40 MG TAB PO SCH (05:46)
[2020-07-01] MEDS: DICYCLOMINE 10 MG CAP PO SCH ×3 (08:39→20:50)
[2020-07-01] MEDS: SODIUM BICARBONATE 650 MG TAB PO SCH ×3 (08:39→20:50)
[2020-07-01] MEDS: oxyCODONE /ACETAMINOPHEN 5-325MG TAB PO PRN (08:40)
[2020-07-01] MEDS ORDERED: POTASSIUM CHLORIDE ER 20 MEQ TAB PO NR (09:09)
[2020-07-01 09:11] LABS: Hematocrit 23.5 % (35.5-45.6); Hemoglobin 7.6 gm/dl (11.8-15.2); Mean Corpuscular HGB Conc 33 % (32-34); Mean Corpuscular Volume 95 fl (84-94); Platelet Count 265 K/mm3 (140-440); Red Blood Count 2.46 M/mm3 (3.65-5.03); Red Cell Distribution Width 15.6 % (13.2-15.2)
--- NOTE | 2020-07-01 09:11 | Progress Note ---
Assessment and Plan Assessment and plan: 80-year-old male who is a resident of assisted living facility with vascular dementia, cerebral sclerosis, debility, diabetes mellitus who presents to the emergency department on 06/06 with complaints of lethargy and diminished cognition as per daughter he developed an episode of unresponsiveness while at breakfast at at his assisted living facility. Patient was found to have a urinary tract infection complicated by sepsis and septic shock, acute kidney injury, toxic metabolic encephalopathy as well as metabolic acidosis. Patient was hypotensive with systolic blood pressures in the 50s and was initiated on vasopressor support in the emergency department. Patient was admitted to the hospital serv ice with consults to nephrology and [facility]. Hospital course 06/07: Patient remains on dopamine, vasopressin and Levophed. Nephrology has started the patient on sodium bicarbonate drip for metabolic acidosis. Infectious disease initiated vancomycin in addition to the cefepime and ordered a C. difficile. 06/08: Patient has gram-positive cocci bacteremia in 03/07 bottles which grew to be coag negative staph coccus and he has repeat blood cultures in progress. Urine culture has no growth to date and he is on IV vancomycin and cefepime. Yesterday we ordered a C. difficile PCR which is pending. Patient had a moment of tachycardia into the 130s and a stat EKG was obtained. Patient was given amiodarone bolus by [facility] and cardiology was consulted. Patient is hyperchloremic today however his metabolic acidosis and BUN/creatinine is slightly improved to 93/3.2 from 100/3.6 and his repeat lactic acid is 1.5. At the time my examination patient was on Levophed at 6, vasopressin 0.03 and dopamine at 6. This morning patient failed his swallow eval and ST evaluation was ordered. Of note patient's echocardiogram shows reduced 15 to 20% with borderline left ventricular hypertrophy. 06/09: This morning his speech evaluation was completed and he has been cleared for mechanical soft diet with thin liquids. Patient complained of right-sided chest pain with radiation to shoulders and a stat EKG cardiac enzymes were ordered. Patient was recultured yesterday and those have no growth to date and his vancomycin was stopped. Infectious disease team recommends removal of Torres catheter when feasible and a CT abdomen/pelvis when stable. Patient has been cleared to transfer to the floor by cardiology and [facility]. 06/10/2020; patient is on IV cefepime for sepsis due to UTI day 3 out of 5. Vancomycin discontinued. Patient is complaining pleuritic chest pain. Patient was evaluated by cardiology for elevated troponin and episode of A. fib on admission. Cardiology discontinued amiodarone and put her on Lopressor. Cardiology recommend against anticoagulation because of patient's anemia. Hemoglobin this morning was 7.4 and anemia work-up is in progress. I did ordered CT abdomen and pelvis. PT OT evaluation. Patient has ISAAC and nephrology is following. Patient has rectal tube and liquid stool in the bag. I ordered stool for C. difficile. We will continue to monitor. 06/11/2020; patient is on cefepime day /. CT abdomen and pelvis was done and significant for colitis, ischemic colitis is possibility given hypotension and elevated lactic acid level. I will consult GI. Patient has episode of A. fib for less than 24 hours, cardiology was consulted and recommend to be on Lopressor. No need for coagulation because of his anemia. Hemoglobin this morning is improved to 8. Anemia work-up was done, no iron deficiency anemia identified. ISAAC is improving. C. difficile was negative. 06/12/2020; continue cefepime per ID recommendation. CT abdomen and pelvis is significant for ischemic colitis likely due to septic shock, hypotension. Patient was seen by GI and recommend no further intervention at this time. Patient had episode of A. fib on admission for less than 24 hours and cardiology recommend to continue on Lopressor, no anticoagulation needed. Hemoglobin is improving. Patient came from assisted living facility. Patient need Covid test before discharge. ISAAC is improving. Creatinine this morning was 1.7. Nephrology is following. OT evaluated and recommend subacute rehab, PT evaluation is pending. 06/13: Replace K and Mag, continue to monitor renal fuction, Continue abx per ID, c.diff negative. patient still with Rectal tube and Torres but will re- evaluate for possible discontinuation. Questran started by GI. Will continue to monitor and replace electrolytes Discussed with nursing staff to change torres to condom catheter CM to try and ascertain patients functional status prior to hospitalization 06/14: Patient showing some clinical improvement Torres replaced due to urinary retention about 1000 cc of clear urine removed. Flomax started. PT OT consu lted as patient is noted to have been ambulatory prior to this admission will likely need SNF placement. Diarrhea consistency is improving anticipate discharge in 24 to 48 hours once approval is obtained. Cardiology input is noted Lopressor 25 mg p.o. twice daily possible addition of SABIHA inhibitor or ARB when okay with nephrology as regular this is a is improving. At this time no AC for A. fib management due to anemia and the transient nature of the A. fib which was less than 24 hours. 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 Unknown etiology or chronicity of these diagnoses. No current clinical evidence of acutely decompensated HF. Per [facility] records, pt saw [facility] in 1998 and underwent LHC which did not show any significant findings. Continue with conservative cardiac management given pt's advanced age, dementia and multiple co-morbidities. Recommend pt follow up in our office with Dr. Rosa within 2 weeks of discharge ([phone]). 06/15: Continue supportive care. Will give a unit of PRBC and anticipate discharge today or tomorrow once approval from insurance company obtained. PATIENT will need urology follow up outpatient and also cardiology outpatient. Discussed with patient and Case management Continue PT OT 06/16: Still awaiting prior approval from the insurance company for patient to be discharged. Continue supportive care thrombocytopenia noted again antiplatelets are on hold. We will continue to monitor anticipate discharge once prior authorization is received from insurance [employer]. Continue rehab therapy while in house 06/17: Severe hyperkalemia noted in the setting of renal dysfunction. Will hold discharge. Also patient with intermittent fevers culture still on resolved. Bolus of fluid given will also give some Kayexalate to correct hyperkalemia. 06/18: Still with low-grade fever. White count still normal. Potassium mild hypokalemia. Will monitor closely renal function showing some improvement. If continues to improve we will anticipate discharge tomorrow. Still with elevated troponin but improved compared to prior. No respiratory compromise noted at this time diarrhea still present. Will discuss with ID if patient should empirically be treated with p.o. vancomycin despite negative C. difficile for with Flagyl. 06/19: Considering noted deformity on bilateral shoulders will obtain an x-ray just to ensure that there is no other acute event. I reviewed the chart and not has been done. Continue bicarb drip may need to decrease rate but will defer to assignment desk editor. Awaiting labs from today. Anticipate discharge in a.m. we will also rule out bilateral upper extremity DVT due to the swelling. 4/19: Patient is a 80-year-old male who presented to the hospital for dialysis related facility with complaints of lethargy diminished cognition diagnosed with septic shock with diarrhea but with C. difficile negative during hospital stay was noted to be cardiac arrhythmia with tachycardia resolved with amiodarone. Was also noted to have ISAAC likely secondary to ATN showed some improvement and stabilized. Diarrhea persisted was managed with fecal management system with ID input noted. Fortunately the past few days has been having recurrent fever today noted to have a distended abdomen although nontender CT abdomen and pelvis with oral contrast was added following clearance from assignment desk editor. 06/21. Patient seen and examined at bedside this morning. Ultrasound of the upper extremities showed no DVT. He has been advised to elevate right upper extremity to improve swelling. Potassium is very low today he will get potassium replacement. Plan for possible discharge tomorrow. Remained afebrile overnight 06/22. Having electrolyte abnormalities. Repleting. Will repeat levels this PM. On Antibiotics for colitis. Will dc when his electrolytes become stable. 06/23. Plan for discharge today as electrolytes have improved. COVID-19 test was positive so he would not go to [place] as per case folder. Plan to search for facilities that will accept him 06/24. Electrolytes have normalized. Awaiting placement 06/25. Complains of pain around the buttock area. Resumed home dose oxycodone yesterday. 06/26. Needs placement. To complete antibiotics tomorrow. 06/27. Pending placement. Continue wound care. Vitals stable 06/28: Patient still awaiting placement. Noted to have swelling of the right upper extremity. Appears to be dependent. Discussed with nursing staff to elevate upper extremity. 06/29: Patient seen and examined, Continue supportive discussed with case management today will work on seeing if the facility he came from will accept him back. Still recommended outpatient urology evaluation. Upper extremity swelling continues to show some improvement with elevation. 06/30: No new complaints at this time. We will recheck his lab test to evaluate renal function. Of also discussed with case management for continued PT OT evaluation. While awaiting return to outpatient facility. 07/01: Mr. Nair remains with right upper extremity swelling especially when dependent. Encourage nurses to place a pillow to elevate and drain by gravity. We will give a dose of Lasix today. He is awaiting discharge back to the facility he came from [facility] is arranged. Otherwise he is medically cleared. Diagnosis Septic Shock-resolved. Metabolic encephalopathy. Coag negative Staphylococcus 1/4 bottles. Likely contaminant Urinary tract infection. Urine culture showed no growth. Extensive colitis: C. difficile negative. Acute hypoxic respiratory failure-improved. Acute kidney injury secondary to vasomotor nephropathy. Atrial fibrillation with RVR-rate is well controlled. On amiodarone. Cardiology recommendations appreciated. No indication for anticoagulation due to transient history of atrial fibrillation and anemia as per cardiology. Recurrent fevers. Electrolyte abnormalities-Resolved COVID-19 infection-stable. Sacral ulcer-regular turning. Zinc oxide barrier cream PRN Chronic bilateral shoulder distal care Discharge planning. Plan to discharge to skilled facility when accepted History Interval history: Patient seen and examined, reports worsening right upper extremity swelling Hospitalist Physical - Physical exam Narrative exam: VITAL SIGNS: Reviewed. GENERAL: Awake HEAD: No signs of head trauma. EYES: Pupils are equal. Extraocular motions intact. MOUTH: Oropharynx is normal. NECK: No adenopathy, no JVD. CHEST: Chest with diminished breath sounds bilaterally. No wheezes, rales, or rhonchi. CARDIAC: normal S1 and S2, without murmurs, gallops, or rubs. ABDOMEN: Soft, non tender and non distended. No rebound or guarding, and no masses palpated. Bowel Sounds normal. MUSCULOSKELETAL: Upper extremity swelling right more than left, noted dependent edema NEUROLOGIC EXAM: Alert and oriented x3. Mild contractions. SKIN: No obvious lesions - Constitutional Vitals: Temp Pulse Resp BP Pulse Ox 97.8 F 87 22 162/69 98 07/01/20 06:20 07/01/20 06:20 07/01/20 06:20 07/01/20 06:20 07/01/20 06:20 General appearance: Present: no acute distress, well-nourished HEART Score - HEART Score Troponin: Troponin T 0.141 ng/mL (0.00-0.029) H* 06/18/20 10:39 Results - Labs CBC & Chem 7: 06/20/20 06:00 06/30/20 12:19 Labs: Laboratory Last Values WBC 4.9 K/mm3 (4.5-11.0) 06/20/20 06:00 RBC 2.48 M/mm3 (3.65-5.03) L 06/20/20 06:00 Hgb 8.1 gm/dl (11.8-15.2) L 06/20/20 06:00 Hct 23.9 % (35.5-45.6) L 06/20/20 06:00 MCV 97 fl (84-94) H 06/20/20 06:00 MCH 33 pg (28-32) H 06/20/20 06:00 MCHC 34 % (32-34) 06/20/20 06:00 RDW 14.0 % (13.2-15.2) 06/20/20 06:00 Plt Count 279 K/mm3 (140-440) 06/20/20 06:00 Lymph % (Auto) 6.8 % (13.4-35.0) L 06/13/20 06:13 [place] % (Auto) 5.0 % (0.0-7.3) 06/13/20 06:13 Eos % (Auto) 1.7 % (0.0-4.3) 06/13/20 06:13 Baso % (Auto) 0.2 % (0.0-1.8) 06/13/20 06:13 Lymph # (Auto) 0.9 K/mm3 (1.2-5.4) L 06/13/20 06:13 [place] # (Auto) 0.7 K/mm3 (0.0-0.8) 06/13/20 06:13 Eos # (Auto) 0.2 K/mm3 (0.0-0.4) 06/13/20 06:13 Baso # (Auto) 0.0 K/mm3 (0.0-0.1) 06/13/20 06:13 Add Manual Diff Complete 06/16/20 12:50 Total Counted 100 06/16/20 12:50 Seg Neutrophils % 86.3 % (40.0-70.0) H 06/13/20 06:13 Seg Neuts % (Manual) 65.0 % (40.0-70.0) 06/16/20 12:50 Band Neutrophils % 20.0 % 06/16/20 12:50 Lymphocytes % (Manual) 6.0 % (13.4-35.0) L 06/16/20 12:50 Reactive Lymphs % (Man) 1.0 % 06/12/20 05:24 Monocytes % (Manual) 9.0 % (0.0-7.3) H 06/16/20 12:50 Eosinophils % (Manual) 2.0 % (0.0-4.3) 06/12/20 05:24 Nucleated RBC % Not Reportable 06/16/20 12:50 Seg Neutrophils # 11.9 K/mm3 (1.8-7.7) H 06/13/20 06:13 Seg Neutrophils # Man 7.2 K/mm3 (1.8-7.7) 06/16/20 12:50 Band Neutrophils # 2.2 K/mm3 06/16/20 12:50 Lymphocytes # (Manual) 0.7 K/mm3 (1.2-5.4) L 06/16/20 12:50 Abs React Lymphs (Man) 0.0 K/mm3 06/16/20 12:50 Monocytes # (Manual) 1.0 K/mm3 (0.0-0.8) H 06/16/20 12:50 Eosinophils # (Manual) 0.0 K/mm3 (0.0-0.4) 06/16/20 12:50 Basophils # (Manual) 0.0 K/mm3 (0.0-0.1) 06/16/20 12:50 Metamyelocytes # 0.0 K/mm3 06/16/20 12:50 Myelocytes # 0.0 K/mm3 06/16/20 12:50 Promyelocytes # 0.0 K/mm3 06/16/20 12:50 Blast Cells # 0.0 K/mm3 06/16/20 12:50 WBC Morphology Not Reportable 06/16/20 12:50 Hypersegmented Neuts Not Reportable 06/16/20 12:50 Hyposegmented Neuts Not Reportable 06/16/20 12:50 Hypogranular Neuts Not Reportable 06/16/20 12:50 Smudge Cells Not Reportable 06/16/20 12:50 Toxic Granulation Not Reportable 06/16/20 12:50 Toxic Vacuolation Not Reportable 06/16/20 12:50 Dohle Bodies Not Reportable 06/16/20 12:50 Pelger-Huet Anomaly Not Reportable 06/16/20 12:50 Denys Rods Not Reportable 06/16/20 12:50 Platelet Estimate Consistent w auto 06/16/20 12:50 Clumped Platelets Rare 06/16/20 12:50 Plt Clumps, EDTA Not Reportable 06/16/20 12:50 Large Platelets Rare 06/16/20 12:50 Giant Platelets Not Reportable 06/16/20 12:50 Platelet Satelliting Not Reportable 06/16/20 12:50 Plt Morphology Comment Not Reportable 06/16/20 12:50 RBC Morphology Normal 06/16/20 12:50 Dimorphic RBCs Not Reportable 06/16/20 12:50 Polychromasia Not Reportable 06/16/20 12:50 Hypochromasia Not Reportable 06/16/20 12:50 Poikilocytosis Not Reportable 06/16/20 12:50 Anisocytosis Not Reportable 06/16/20 12:50 Microcytosis Not Reportable 06/16/20 12:50 Macrocytosis Not Reportable 06/16/20 12:50 Spherocytes Not Reportable 06/16/20 12:50 Pappenheimer Bodies Not Reportable 06/16/20 12:50 Sickle Cells Not Reportable 06/16/20 12:50 Target Cells Not Reportable 06/16/20 12:50 Tear Drop Cells Not Reportable 06/16/20 12:50 Ovalocytes Not Reportable 06/16/20 12:50 Helmet Cells Not Reportable 06/16/20 12:50 [place] Bodies Not Reportable 06/16/20 12:50 [place] Rings Not Reportable 06/16/20 12:50 Dom Cells Not Reportable 06/16/20 12:50 Bite Cells Not Reportable 06/16/20 12:50 Crenated Cell Not Reportable 06/16/20 12:50 Elliptocytes Not Reportable 06/16/20 12:50 Acanthocytes (Spur) Not Reportable 06/16/20 12:50 Rouleaux Not Reportable 06/16/20 12:50 Hemoglobin C Crystals Not Reportable 06/16/20 12:50 Schistocytes Not Reportable 06/16/20 12:50 Malaria parasites Not Reportable 06/16/20 12:50 Chance Bodies Not Reportable 06/16/20 12:50 Hem Pathologist Commnt No 06/16/20 12:50 PT 16.3 Sec. (12.2-14.9) H 06/06/20 10:19 INR 1.33 (0.87-1.13) H 06/06/20 10:19 APTT 31.6 Sec. (24.2-36.6) 06/06/20 10:19 ABG pH 7.329 pH Units (7.350-7.450) L 06/06/20 11:18 ABG pCO2 27.8 mm Hg 06/06/20 11:18 ABG pO2 258.1 mm Hg (80.0-90.0) H 06/06/20 11:18 ABG HCO3 14.3 mmol/L (20.0-26.0) L 06/06/20 11:18 ABG O2 Saturation 99.4 % (95.0-99.0) H 06/06/20 11:18 ABG O2 Content 13.2 (0.0-44) 06/06/20 11:18 ABG Base Excess -10.5 mmol/L (-2.0-3.0) L 06/06/20 11:18 ABG Hemoglobin 9.1 gm/dl (14.0-18.0) L 06/06/20 11:18 ABG Carboxyhemoglobin 1.3 % (0.0-5.0) 06/06/20 11:18 ABG Methemoglobin Not Reportable 06/06/20 11:18 VBG pH 7.438 (7.320-7.420) H 06/06/20 10:19 Oxyhemoglobin 98.2 % (95.0-99.0) 06/06/20 11:18 FiO2 21 % 06/06/20 11:18 Sodium 136 mmol/L (137-145) L 06/30/20 12:19 Potassium 3.7 mmol/L (3.6-5.0) 06/30/20 12:19 Chloride 105.5 mmol/L (98-107) 06/30/20 12:19 Carbon Dioxide 24 mmol/L (22-30) 06/30/20 12:19 Anion Gap 10 mmol/L 06/30/20 12:19 BUN 11 mg/dL (9-20) 06/30/20 12:19 Creatinine 0.8 mg/dL (0.8-1.3) 06/30/20 12:19 Estimated GFR > 60 ml/min 06/30/20 12:19 BUN/Creatinine Ratio 14 % 06/30/20 12:19 Glucose 101 mg/dL (75-100) H 06/30/20 12:19 POC Glucose 87 mg/dL (70-105) 06/27/20 07:19 Lactic Acid 1.50 mmol/L (0.7-2.0) 06/08/20 05:15 Calcium 7.1 mg/dL (8.4-10.2) L 06/30/20 12:19 Phosphorus 2.50 mg/dL (2.5-4.5) 06/24/20 08:29 Magnesium 1.80 mg/dL (1.7-2.3) 06/24/20 08:29 Iron 54 ug/dL (49-181) 06/10/20 10:44 TIBC 157 mcg/dL (250-450) L 06/10/20 10:44 Ferritin 569.5 ng/mL (30.0-300.0) H 06/10/20 10:44 Total Bilirubin 0.20 mg/dL (0.1-1.2) 06/14/20 05:23 AST 19 units/L (5-40) 06/14/20 05:23 ALT 20 units/L (7-56) 06/14/20 05:23 Alkaline Phosphatase 55 units/L (35-129) 06/14/20 05:23 Ammonia 64.0 umol/L (25-60) H 06/06/20 10:19 Total Creatine Kinase 1212 units/L (55-170) H 06/09/20 12:57 CK-MB (CK-2) 12.1 ng/mL (0.0-4.0) H 06/09/20 12:57 CK-MB (CK-2) Rel Index 0.9 (0-4) 06/09/20 12:57 Troponin T 0.141 ng/mL (0.00-0.029) H* 06/18/20 10:39 Total Protein 4.9 g/dL (6.3-8.2) L 06/14/20 05:23 Albumin 2.4 g/dL (3.9-5) L 06/14/20 05:23 Albumin/Globulin Ratio 1.0 % 06/14/20 05:23 Triglycerides 103 mg/dL (2-149) 06/06/20 10:19 Cholesterol 84 mg/dL (50-199) 06/06/20 10:19 LDL Cholesterol Direct 28 mg/dL (50-130) L 06/06/20 10:19 HDL Cholesterol 44 mg/dL (40-59) 06/06/20 10:19 Cholesterol/HDL Ratio 1.90 % 06/06/20 10:19 Vitamin B12 1170 pg/mL (211-911) H 06/10/20 14:49 RBC Folic Acid 829 ng/mL (>280) 06/10/20 10:44 TSH 4.440 mlU/mL (0.270-4.200) H 06/06/20 10:19 Free T4 1.55 ng/dL (0.76-1.46) H 06/06/20 10:19 PTH Intact 271.9 pg/mL (15-65) H 06/08/20 05:15 Urine Color Yellow (Yellow) 06/06/20 14:02 Urine Turbidity Cloudy (Clear) 06/06/20 14:02 Urine pH 6.0 (5.0-7.0) 06/06/20 14:02 Ur Specific [place] 1.013 (1.003-1.030) 06/06/20 14:02 Urine Protein 100 mg/dl mg/dL (Negative) 06/06/20 14:02 Urine Glucose (UA) Neg mg/dL (Negative) 06/06/20 14:02 Urine Ketones Neg mg/dL (Negative) 06/06/20 14:02 Urine Blood Sm (Negative) 06/06/20 14:02 Urine Nitrite Neg (Negative) 06/06/20 14:02 Urine Bilirubin Neg (Negative) 06/06/20 14:02 Urine Urobilinogen < 2.0 mg/dL (<2.0) 06/06/20 14:02 Ur Leukocyte Esterase Lg (Negative) 06/06/20 14:02 Urine WBC (Auto) > 182.0 /HPF (0.0-6.0) H 06/06/20 14:02 Urine RBC (Auto) 55.0 /HPF (0.0-6.0) 06/06/20 14:02 U Epithel Cells (Auto) 1.0 /HPF (0-13.0) 06/06/20 14:02 Urine WBC Clumps 2+ /HPF 06/06/20 14:02 Urine Creatinine 57.0 mg/dL (0.1-20.0) H 06/06/20 21:05 Urine Sodium 85 mmol/L 06/06/20 21:05 Random Vancomycin 9.8 ug/mL (0-40.0) 06/09/20 04:30 Urine Opiates Screen Presumptive negative 06/06/20 14:02 Urine Methadone Screen Presumptive negative 06/06/20 14:02 Ur Barbiturates Screen Presumptive negative 06/06/20 14:02 Ur Phencyclidine Scrn Presumptive negative 06/06/20 14:02 Ur Amphetamines Screen Presumptive negative 06/06/20 14:02 U Benzodiazepines Scrn Presumptive negative 06/06/20 14:02 Urine Cocaine Screen Presumptive negative 06/06/20 14:02 U Marijuana (THC) Screen Presumptive negative 06/06/20 14:02 Drugs of Abuse Note Disclamer 06/06/20 14:02 Plasma/Serum Alcohol < 0.01 % (0-0.07) 06/06/20 10:19 C. difficile Tox (PCR) Negative (Negative) 06/08/20 Unknown Coronavirus (PCR) Positive (Negative) A 06/22/20 10:00 Blood Type O POSITIVE 06/15/20 11:00 Antibody Screen Negative 06/15/20 11:00 Crossmatch See Detail 06/15/20 11:00 Torres/IV: Voiding Method Indwelling Catheter Active Medications - Current Medications Current Medications: Generic Name Dose Route Start Last Admin Trade Name Freq PRN Reason Stop Dose Admin Acetaminophen 650 mg 06/06/20 15:00 06/24/20 06:09 Acetaminophen 325 Mg Tab PO 650 mg Q6H PRN Administration Pain, Mild (1-3) Albuterol 2.5 mg 06/06/20 15:00 Albuterol 2.5 Mg/3 Ml Nebu IH Q3HRT PRN Shortness Of Breath Allopurinol 100 mg 06/07/20 10:00 06/30/20 10:32 Allopurinol 100 Mg Tab PO 100 mg QDAY YELENA Administration Calcium Carbonate/Glycine 500 mg 06/07/20 10:00 06/30/20 10:31 Calcium Carbonate 500 Mg Tab Chew PO 500 mg QDAY YELENA Administration Cholecalciferol 2,000 unit 06/07/20 10:00 06/30/20 10:31 Cholecalciferol (Vit D3) 1000 Unit (25 Mcg) Tab PO 2,000 unit QDAY YELENA Administration Cholestyramine Resin 4 gm 06/12/20 22:00 06/30/20 21:16 Cholestyramine (With Sugar) 4 Gm Packet PO 4 gm BID YELENA Administration Dicyclomine HCl 10 mg 06/06/20 20:00 07/01/20 08:39 Dicyclomine 10 Mg Cap PO 10 mg TID YELENA Administration Famotidine 20 mg 06/13/20 10:00 06/30/20 10:32 Famotidine 20 Mg Tab PO 20 mg QDAY YELENA Administration Furosemide 40 mg 06/29/20 15:00 07/01/20 05:46 Furosemide 40 Mg Tab PO 40 mg DAILY@0600 YELENA Administration Hydrophilic Ointment 1 applic 06/24/20 11:00 06/25/20 07:47 Lip Therapy Vaseline TP 1 applic DIRECT PRN Administration Dry Lips Loperamide HCl 2 mg 06/22/20 12:30 06/27/20 10:12 Loperamide 2 Mg Cap PO 2 mg Q2H PRN Administration Diarrhea Magnesium Citrate 300 ml 06/06/20 16:20 Magnesium Citrate 300 Ml Oral Liqd PO QDAY PRN Constipation Metoprolol Tartrate 25 mg 06/09/20 22:00 06/30/20 21:58 Metoprolol Tartrate 25 Mg Tab PO 25 mg BID YELENA Administration Oxycodone/Acetaminophen 1 tab 06/24/20 12:30 07/01/20 08:40 Oxycodone /Acetaminophen 5-325mg Tab PO 1 tab Q4H PRN Administration Pain, Moderate (4-6) Pravastatin Sodium 10 mg 06/06/20 22:00 06/30/20 21:15 Pravastatin 20 Mg Tab PO 10 mg QHS YELENA Administration Sodium Bicarbonate 650 mg 06/16/20 20:00 07/01/20 08:39 Sodium Bicarbonate 650 Mg Tab PO 650 mg TID YELENA Administration Sodium Chloride 10 ml 06/06/20 15:00 06/30/20 21:17 Sodium Chloride 0.9% 10 Ml Flush Syringe IV 10 ml BID YELENA Administration Sodium Chloride 10 ml 06/06/20 15:00 Sodium Chloride 0.9% 10 Ml Flush Syringe IV PRN PRN LINE FLUSH Tamsulosin HCl 0.4 mg 06/14/20 11:00 06/30/20 10:32 Tamsulosin 0.4 Mg Cap PO 0.4 mg QDAY YELENA Administration Zinc Oxide 1 applic 06/25/20 11:00 06/30/20 21:17 Zinc Oxide 20% Oint 28.35 Gm TP 1 applic BID YELENA Administration Nutrition/Malnutrition Assess - Dietary Evaluation Nutrition/Malnutrition Findings: Nutrition Notes Start: 06/08/20 11:43 Freq: Status: Active Protocol: Document 06/28/20 14:06 CW (Rec: 06/28/20 14:11 CW [email or web address]) Nutrition Notes Initial or Follow up Reassessment Current Diagnosis Acute Kidney Injury,Diabetes, Hypertension Other Pertinent Diagnosis COVID 19+, AMS, Dementia, UTI, metabolic encephalopathy, ?s/ p CVA? Current Diet Mechanical soft diet + ONS BID Labs/Tests Na 135 Pertinent Medications reviewed Height 5 ft 8 in Weight 87.2 kg [place] Body Weight (kg) 70.00 BMI 29.2 Weight Status Overweight Subjective/Other Information F/U for intakes/ONS tolerance/ POC. Pt continues to eat very little of meals but drinks 100 % apple ONS. Will increase ONS to QID d/t poor intake of meals. Percent of energy/protein needs met: 34%/23% Burn Absent Trauma Absent Difficulty In Swallowing Skin Integrity/Comment Stage 1 pressure ulcer Current % PO Poor (25-49%) Minimum of two criteria Yes Energy Intake (severe) < or equal to 50% Estimated Energy Requirement > or equal to 5 days Fluid Accumulation Mild (non-severe) Reduced Construction Person Strength Measurably Reduced (severe) #3 Nutrition Diagnosis Malnutrition Diagnosis Progress(for reassessment Continues documentation) #2 Nutrition Diagnosis Increased nutrient needs ( specify in comment below) Diagnosis Progress(for reassessment Continues documentation) #1 Nutrition Diagnosis Inadequate oral intake As Evidenced by Signs and Symptoms Pt drinking 100% of apple ONS Diagnosis Progress(for reassessment Improved documentation) Is patient on ventilator? No Is Patient Ambulatory and/or Out of Bed Yes REE-([place]-St. Jeor-ambulatory/OOB) [ [id number] [id number]] Calculation Used for Recommendations [place]-St Jeor Additional Notes protein needs: 104 - 131g (1. 2 - 1.5g/kgBW for ISAAC) fluid needs: 1 ml/kcal Nutrition Intervention Change Diet Order: Continue Mechanical Soft Diet and ONS Add Supplement/Snack (indicate name/kcal Ensure Clear QID /protein ) Provides kCal: 960 Provides Protein (gm) 32 Goal #1 Meet at least 75% of kcal and proteins via PO and ONS Goal #2 wound healing Anticipated Discharge Needs: Mechanical Soft diet + ONS QID (apple) Follow-Up By: 07/01/20 Additional Comments F/U intakes and ONS tolerance; POC
[2020-07-01 09:24] LABS: BUN/Creatinine Ratio 12; Blood Urea Nitrogen 11 mg/dL (9-20); Hemolysis Index 5
[2020-07-01] MEDS ORDERED: FUROSEMIDE 40 MG/4 ML INJ IV NR (10:00)
--- NOTE | 2020-07-01 10:17 | Progress Note ---
Assessment and Plan 1. Acute kidney injury: Vasomotor ISAAC in the setting of shock. Renal US negative for hydro. Monitor renal function. Creatinine level is better. Avoid nephrotoxic agents. Meds dosage based on GFR. 2. FEN: Hypernatremia, improved. Hypokalemia, improved, monitor. Metabolic acidosis, improved. Edema, Lasix. Monitor volume status and lytes. 3. Sepsis with shock: Resolved, s/p abx. 4. UTI: S/p Abx. 5. Acute hypoxemic respiratory failure: CXR clear. Initial COVID test negative. Repeat Covid test positive. On RA. 6. Colitis: C.diff negative. 7. Metabolic encephalopathy: Monitor. 8. H/o Dementia: Supportive care. 9. H/o HTN: Monitor BP. 10. Anemia, POA: Monitor. Will see patient intermittently depending on the need. Subjective: Patient was seen and examined at the bedside. No new complaint. Objective: General appearance: well-developed, appears stated age, not in distress HEENT: ATNC Neck: trachea midline Respiratory: ctab Heart: regular, S1S2, no murmur Gastrointestinal: soft, normoactive bowel sounds, not tender Integumentary: sacral wound Ext: trace extremity edema noted Neurologic: alert, conversing, able to move extremities : Hair catheter Subjective Date of service: 07/01/20 Principal diagnosis: shock Objective - Vital Signs Vital signs: Vital Signs - 12hr 07/01/20 06:20 Temperature 97.8 F Pulse Rate 87 Respiratory 22 Rate Blood Pressure 162/69 O2 Sat by Pulse 98 Oximetry - Lab 07/01/20 08:12 07/01/20 08:12 Most recent lab results ABG pH 7.329 pH Units (7.350-7.450) L 06/06/20 11:18 ABG pCO2 27.8 mm Hg 06/06/20 11:18 ABG pO2 258.1 mm Hg (80.0-90.0) H 06/06/20 11:18 ABG HCO3 14.3 mmol/L (20.0-26.0) L 06/06/20 11:18 ABG O2 Saturation 99.4 % (95.0-99.0) H 06/06/20 11:18 Calcium 7.0 mg/dL (8.4-10.2) L 07/01/20 08:12 Phosphorus 2.50 mg/dL (2.5-4.5) 06/24/20 08:29 Magnesium 1.80 mg/dL (1.7-2.3) 06/24/20 08:29 Urine Creatinine 57.0 mg/dL (0.1-20.0) H 06/06/20 21:05 Urine Sodium 85 mmol/L 06/06/20 21:05 Medications & Allergies - Medications Allergies/Adverse Reactions: Allergies No Known Allergies Allergy (Verified 06/06/20 15:21) Home Medications: Home Medications Medication Instructions Recorded Confirmed Last Taken Type Amlodipine Besylate [Norvasc] 5 mg PO QDAY 06/06/20 06/06/20 Unknown History Calcium Carb/Magnesium Hydrox 500 mg PO QDAY 06/06/20 06/06/20 Unknown History [Antacid 1000-200 mg Tab Chew] Cholecalciferol (Vitamin D3) 2,000 unit PO QDAY 06/06/20 06/06/20 Unknown History [Vitamin D3 2,000 UNIT CAP] Dicyclomine [Bentyl] 10 mg PO TID 06/06/20 06/06/20 Unknown History Insulin Lispro [Insulin Lispro 10 unit SQ TID 06/06/20 06/06/20 Unknown History Kwikpen U-100] Melatonin [Melatonin 3MG TAB] 6 mg PO QHS 06/06/20 06/06/20 Unknown History Pantoprazole [Protonix TAB] 40 mg PO QDAY 06/06/20 06/06/20 Unknown History Pioglitazone HCl [Actos] 30 mg PO QDAY 06/06/20 06/06/20 Unknown History Pravastatin Sodium [Pravastatin] 10 mg PO QHS 06/06/20 06/06/20 Unknown History allopurinoL [Zyloprim] 100 mg PO QDAY 06/06/20 06/06/20 Unknown History Famotidine [Pepcid] 20 mg PO QDAY #30 tablet 06/17/20 Unknown Rx Cholestyramine (with Sugar) 4 gm PO BID #60 powd.pack 06/23/20 Unknown Rx [Cholestyramine Packet] Loperamide [Imodium] 2 mg PO Q2H PRN #10 capsule 06/23/20 Unknown Rx Metoprolol [Lopressor TAB] 25 mg PO BID #60 tablet 06/23/20 Unknown Rx Tamsulosin [Flomax] 0.4 mg PO QDAY #30 cap 06/23/20 Unknown Rx levoFLOXacin [Levaquin] 750 mg PO QDAY #3 tablet 06/23/20 Unknown Rx metroNIDAZOLE [Flagyl] 500 mg PO Q8HR #9 tablet 06/23/20 Unknown Rx Active Medications: Generic Name Dose Route Start Last Admin Trade Name Freq PRN Reason Stop Dose Admin Acetaminophen 650 mg 06/06/20 15:00 06/24/20 06:09 Acetaminophen 325 Mg Tab PO 650 mg Q6H PRN Administration Pain, Mild (1-3) Albuterol 2.5 mg 06/06/20 15:00 Albuterol 2.5 Mg/3 Ml Nebu IH Q3HRT PRN Shortness Of Breath Allopurinol 100 mg 06/07/20 10:00 06/30/20 10:32 Allopurinol 100 Mg Tab PO 100 mg QDAY YELENA Administration Calcium Carbonate/Glycine 500 mg 06/07/20 10:00 06/30/20 10:31 Calcium Carbonate 500 Mg Tab Chew PO 500 mg QDAY YELENA Administration Cholecalciferol 2,000 unit 06/07/20 10:00 06/30/20 10:31 Cholecalciferol (Vit D3) 1000 Unit (25 Mcg) Tab PO 2,000 unit QDAY YELENA Administration Cholestyramine Resin 4 gm 06/12/20 22:00 06/30/20 21:16 Cholestyramine (With Sugar) 4 Gm Packet PO 4 gm BID YELENA Administration Dicyclomine HCl 10 mg 06/06/20 20:00 07/01/20 08:39 Dicyclomine 10 Mg Cap PO 10 mg TID YELENA Administration Famotidine 20 mg 06/13/20 10:00 06/30/20 10:32 Famotidine 20 Mg Tab PO 20 mg QDAY YELENA Administration Furosemide 40 mg 06/29/20 15:00 07/01/20 05:46 Furosemide 40 Mg Tab PO 40 mg DAILY@0600 YELENA Administration Furosemide 40 mg 07/01/20 10:00 Furosemide 40 Mg/4 Ml Inj IV 07/01/20 14:00 ONCE NR Hydrophilic Ointment 1 applic 06/24/20 11:00 06/25/20 07:47 Lip Therapy Vaseline TP 1 applic DIRECT PRN Administration Dry Lips Loperamide HCl 2 mg 06/22/20 12:30 06/27/20 10:12 Loperamide 2 Mg Cap PO 2 mg Q2H PRN Administration Diarrhea Magnesium Citrate 300 ml 06/06/20 16:20 Magnesium Citrate 300 Ml Oral Liqd PO QDAY PRN Constipation Metoprolol Tartrate 25 mg 06/09/20 22:00 06/30/20 21:58 Metoprolol Tartrate 25 Mg Tab PO 25 mg BID YELENA Administration Oxycodone/Acetaminophen 1 tab 06/24/20 12:30 07/01/20 08:40 Oxycodone /Acetaminophen 5-325mg Tab PO 1 tab Q4H PRN Administration Pain, Moderate (4-6) Potassium Chloride 20 meq 07/01/20 09:09 Potassium Chloride Er 20 Meq Tab PO 07/01/20 14:00 ONCE NR Pravastatin Sodium 10 mg 06/06/20 22:00 06/30/20 21:15 Pravastatin 20 Mg Tab PO 10 mg QHS YELENA Administration Sodium Bicarbonate 650 mg 06/16/20 20:00 07/01/20 08:39 Sodium Bicarbonate 650 Mg Tab PO 650 mg TID YELENA Administration Sodium Chloride 10 ml 06/06/20 15:00 06/30/20 21:17 Sodium Chloride 0.9% 10 Ml Flush Syringe IV 10 ml BID YELENA Administration Sodium Chloride 10 ml 06/06/20 15:00 Sodium Chloride 0.9% 10 Ml Flush Syringe IV PRN PRN LINE FLUSH Tamsulosin HCl 0.4 mg 06/14/20 11:00 06/30/20 10:32 Tamsulosin 0.4 Mg Cap PO 0.4 mg QDAY YELENA Administration Zinc Oxide 1 applic 06/25/20 11:00 06/30/20 21:17 Zinc Oxide 20% Oint 28.35 Gm TP 1 applic BID YELENA Administration
[2020-07-01] MEDS: TAMSULOSIN 0.4 MG CAP PO SCH (10:56)
[2020-07-01] MEDS: FAMOTIDINE 20 MG TAB PO SCH (10:57)
[2020-07-01] MEDS: CHOLESTYRAMINE (WITH SUGAR) 4 GM PACKET PO SCH ×2 (10:57→21:42)
[2020-07-01] MEDS: CHOLECALCIFEROL (VIT D3) 1000 UNIT (25 mcg) TAB PO SCH (10:58)
[2020-07-01] MEDS: CALCIUM CARBONATE 500 MG TAB CHEW PO SCH (10:58)
[2020-07-01] MEDS: allopurinoL 100 MG TAB PO SCH (10:59)
[2020-07-01] MEDS: METOPROLOL TARTRATE 25 MG TAB PO SCH ×2 (11:24→21:41)
[2020-07-01] MEDS: ZINC OXIDE 20% OINT 28.35 GM TP SCH ×2 (19:11→21:40)
[2020-07-01] MEDS: PRAVASTATIN 20 MG TAB PO SCH (21:42)
[2020-07-02] MEDS: FUROSEMIDE 40 MG TAB PO SCH (05:46)
[2020-07-02 08:46] LABS: BUN/Creatinine Ratio 12; Blood Urea Nitrogen 12 mg/dL (9-20); Calcium 6.9 mg/dL (8.4-10.2); Hemolysis Index 1
[2020-07-02] MEDS ORDERED: POTASSIUM CHLORIDE ER 20 MEQ TAB PO NR (10:58)
--- NOTE | 2020-07-02 10:59 | Progress Note ---
Assessment and Plan 1. Acute kidney injury: Vasomotor ISAAC in the setting of shock. Renal US negative for hydro. Monitor renal function. Creatinine level is better. Avoid nephrotoxic agents. Meds dosage based on GFR. 2. FEN: Hypernatremia, improved. Hypokalemia, improved, monitor. Metabolic acidosis, improved. Edema, Lasix. Replete Calcium. Monitor volume status and lytes. 3. Sepsis with shock: Resolved, s/p abx. 4. UTI: S/p Abx. 5. Acute hypoxemic respiratory failure: CXR clear. Initial COVID test negative. Repeat Covid test positive. On RA. 6. Colitis: C.diff negative. 7. Metabolic encephalopathy: Monitor. 8. H/o Dementia: Supportive care. 9. H/o HTN: Monitor BP. 10. Anemia, POA: Monitor. Subjective: Patient was seen and examined at the bedside. No new complaint. Objective: General appearance: well-developed, appears stated age, not in distress HEENT: ATNC Neck: trachea midline Respiratory: ctab Heart: regular, S1S2, no murmur Gastrointestinal: soft, normoactive bowel sounds, not tender Integumentary: sacral wound Ext: trace extremity edema noted Neurologic: alert, conversing, able to move extremities : Hair catheter Subjective Date of service: 07/02/20 Principal diagnosis: shock Objective - Vital Signs Vital signs: Vital Signs - 12hr 07/02/20 03:52 Temperature 99.3 F Pulse Rate 80 Respiratory 20 Rate Blood Pressure 130/55 O2 Sat by Pulse 98 Oximetry - Lab 07/01/20 08:12 07/02/20 07:08 Most recent lab results ABG pH 7.329 pH Units (7.350-7.450) L 06/06/20 11:18 ABG pCO2 27.8 mm Hg 06/06/20 11:18 ABG pO2 258.1 mm Hg (80.0-90.0) H 06/06/20 11:18 ABG HCO3 14.3 mmol/L (20.0-26.0) L 06/06/20 11:18 ABG O2 Saturation 99.4 % (95.0-99.0) H 06/06/20 11:18 Calcium 6.9 mg/dL (8.4-10.2) L 07/02/20 07:08 Phosphorus 2.50 mg/dL (2.5-4.5) 06/24/20 08:29 Magnesium 1.80 mg/dL (1.7-2.3) 06/24/20 08:29 Urine Creatinine 57.0 mg/dL (0.1-20.0) H 06/06/20 21:05 Urine Sodium 85 mmol/L 06/06/20 21:05 Medications & Allergies - Medications Allergies/Adverse Reactions: Allergies No Known Allergies Allergy (Verified 06/06/20 15:21) Home Medications: Home Medications Medication Instructions Recorded Confirmed Last Taken Type Amlodipine Besylate [Norvasc] 5 mg PO QDAY 06/06/20 06/06/20 Unknown History Calcium Carb/Magnesium Hydrox 500 mg PO QDAY 06/06/20 06/06/20 Unknown History [Antacid 1000-200 mg Tab Chew] Cholecalciferol (Vitamin D3) 2,000 unit PO QDAY 06/06/20 06/06/20 Unknown History [Vitamin D3 2,000 UNIT CAP] Dicyclomine [Bentyl] 10 mg PO TID 06/06/20 06/06/20 Unknown History Insulin Lispro [Insulin Lispro 10 unit SQ TID 06/06/20 06/06/20 Unknown History Kwikpen U-100] Melatonin [Melatonin 3MG TAB] 6 mg PO QHS 06/06/20 06/06/20 Unknown History Pantoprazole [Protonix TAB] 40 mg PO QDAY 06/06/20 06/06/20 Unknown History Pioglitazone HCl [Actos] 30 mg PO QDAY 06/06/20 06/06/20 Unknown History Pravastatin Sodium [Pravastatin] 10 mg PO QHS 06/06/20 06/06/20 Unknown History allopurinoL [Zyloprim] 100 mg PO QDAY 06/06/20 06/06/20 Unknown History Famotidine [Pepcid] 20 mg PO QDAY #30 tablet 06/17/20 Unknown Rx Cholestyramine (with Sugar) 4 gm PO BID #60 powd.pack 06/23/20 Unknown Rx [Cholestyramine Packet] Loperamide [Imodium] 2 mg PO Q2H PRN #10 capsule 06/23/20 Unknown Rx Metoprolol [Lopressor TAB] 25 mg PO BID #60 tablet 06/23/20 Unknown Rx Tamsulosin [Flomax] 0.4 mg PO QDAY #30 cap 06/23/20 Unknown Rx levoFLOXacin [Levaquin] 750 mg PO QDAY #3 tablet 06/23/20 Unknown Rx metroNIDAZOLE [Flagyl] 500 mg PO Q8HR #9 tablet 06/23/20 Unknown Rx Active Medications: Generic Name Dose Route Start Last Admin Trade Name Freq PRN Reason Stop Dose Admin Acetaminophen 650 mg 06/06/20 15:00 06/24/20 06:09 Acetaminophen 325 Mg Tab PO 650 mg Q6H PRN Administration Pain, Mild (1-3) Albuterol 2.5 mg 06/06/20 15:00 Albuterol 2.5 Mg/3 Ml Nebu IH Q3HRT PRN Shortness Of Breath Allopurinol 100 mg 06/07/20 10:00 07/01/20 10:59 Allopurinol 100 Mg Tab PO 100 mg QDAY YELENA Administration Calcium Carbonate/Glycine 500 mg 06/07/20 10:00 07/01/20 10:58 Calcium Carbonate 500 Mg Tab Chew PO 500 mg QDAY YELENA Administration Cholecalciferol 2,000 unit 06/07/20 10:00 07/01/20 10:58 Cholecalciferol (Vit D3) 1000 Unit (25 Mcg) Tab PO 2,000 unit QDAY YELENA Administration Cholestyramine Resin 4 gm 06/12/20 22:00 07/01/20 21:42 Cholestyramine (With Sugar) 4 Gm Packet PO 4 gm BID YELENA Administration Dicyclomine HCl 10 mg 06/06/20 20:00 07/01/20 20:50 Dicyclomine 10 Mg Cap PO 10 mg TID YELENA Administration Famotidine 20 mg 06/13/20 10:00 07/01/20 10:57 Famotidine 20 Mg Tab PO 20 mg QDAY YELENA Administration Furosemide 40 mg 06/29/20 15:00 07/02/20 05:46 Furosemide 40 Mg Tab PO 40 mg DAILY@0600 YELENA Administration Hydrophilic Ointment 1 applic 06/24/20 11:00 06/25/20 07:47 Lip Therapy Vaseline TP 1 applic DIRECT PRN Administration Dry Lips Loperamide HCl 2 mg 06/22/20 12:30 06/27/20 10:12 Loperamide 2 Mg Cap PO 2 mg Q2H PRN Administration Diarrhea Magnesium Citrate 300 ml 06/06/20 16:20 Magnesium Citrate 300 Ml Oral Liqd PO QDAY PRN Constipation Metoprolol Tartrate 25 mg 06/09/20 22:00 07/01/20 21:41 Metoprolol Tartrate 25 Mg Tab PO 25 mg BID YELENA Administration Oxycodone/Acetaminophen 1 tab 06/24/20 12:30 07/01/20 08:40 Oxycodone /Acetaminophen 5-325mg Tab PO 1 tab Q4H PRN Administration Pain, Moderate (4-6) Pravastatin Sodium 10 mg 06/06/20 22:00 07/01/20 21:42 Pravastatin 20 Mg Tab PO 10 mg QHS YELENA Administration Sodium Bicarbonate 650 mg 06/16/20 20:00 07/01/20 20:50 Sodium Bicarbonate 650 Mg Tab PO 650 mg TID YELENA Administration Sodium Chloride 10 ml 06/06/20 15:00 07/01/20 21:42 Sodium Chloride 0.9% 10 Ml Flush Syringe IV 10 ml BID YELENA Administration Sodium Chloride 10 ml 06/06/20 15:00 Sodium Chloride 0.9% 10 Ml Flush Syringe IV PRN PRN LINE FLUSH Tamsulosin HCl 0.4 mg 06/14/20 11:00 07/01/20 10:56 Tamsulosin 0.4 Mg Cap PO 0.4 mg QDAY YELENA Administration Zinc Oxide 1 applic 06/25/20 11:00 07/01/20 21:40 Zinc Oxide 20% Oint 28.35 Gm TP 1 applic BID YELENA Administration
[2020-07-02] MEDS: allopurinoL 100 MG TAB PO SCH (11:00)
[2020-07-02] MEDS: METOPROLOL TARTRATE 25 MG TAB PO SCH ×2 (11:01→23:28)
[2020-07-02] MEDS: SODIUM BICARBONATE 650 MG TAB PO SCH ×3 (11:01→20:08)
[2020-07-02] MEDS: DICYCLOMINE 10 MG CAP PO SCH ×4 (11:01→20:08)
[2020-07-02] MEDS: CHOLESTYRAMINE (WITH SUGAR) 4 GM PACKET PO SCH ×2 (11:03→23:28)
[2020-07-02] MEDS: TAMSULOSIN 0.4 MG CAP PO SCH (11:03)
[2020-07-02] MEDS: FAMOTIDINE 20 MG TAB PO SCH (11:03)
[2020-07-02] MEDS: CALCIUM CARBONATE 500 MG TAB CHEW PO SCH (11:04)
[2020-07-02] MEDS: CHOLECALCIFEROL (VIT D3) 1000 UNIT (25 mcg) TAB PO SCH (11:04)
[2020-07-02] MEDS: ZINC OXIDE 20% OINT 28.35 GM TP SCH ×2 (11:05→23:31)
[2020-07-02] MEDS ORDERED: CALCIUM GLUCONATE 2,000 MG in SODIUM CHLORIDE 0.9% 100 ML IV ONE (11:30)
[2020-07-02] MEDS: oxyCODONE /ACETAMINOPHEN 5-325MG TAB PO PRN (14:35)
--- NOTE | 2020-07-02 16:37 | Progress Note ---
Assessment and Plan Assessment and Plan Diagnosis Septic Shock-resolved. Metabolic encephalopathy. Coag negative Staphylococcus 1/4 bottles. Likely contaminant Urinary tract infection. Urine culture showed no growth. Extensive colitis: C. difficile negative. Acute hypoxic respiratory failure-improved. Acute kidney injury secondary to vasomotor nephropathy. Atrial fibrillation with RVR-rate is well controlled. On amiodarone. Cardiology recommendations appreciated. No indication for anticoagulation due to transient history of atrial fibrillation and anemia as per cardiology. Recurrent fevers. Electrolyte abnormalities-Resolved COVID-19 infection-stable. Sacral ulcer-regular turning. Zinc oxide barrier cream PRN Chronic bilateral shoulder distal care Discharge planning. Plan to discharge to skilled facility when accepted Subjective Date of service: 07/02/20 Principal diagnosis: Septic shock Interval history: 80-year-old male who is a resident of assisted living facility with vascular dementia, cerebral sclerosis, debility, diabetes mellitus who presents to the emergency department on 06/06 with complaints of lethargy and diminished cognition as per daughter he developed an episode of unresponsiveness while at breakfast at at his assisted living facility. Patient was found to have a urinary tract infection complicated by sepsis and septic shock, acute kidney injury, toxic metabolic encephalopathy as well as metabolic acidosis. Patient was hypotensive with systolic blood pressures in the 50s and was initiated on vasopressor support in the emergency department. Patient was admitted to the hospital service with consults to nephrology and [facility]. Hospital course 06/07: Patient remains on dopamine, vasopressin and Levophed. Nephrology has started the patient on sodium bicarbonate drip for metabolic acidosis. Infectious disease initiated vancomycin in addition to the cefepime and ordered a C. difficile. 06/08: Patient has gram-positive cocci bacteremia in 1/4 bottles which grew to be coag negative staph coccus and he has repeat blood cultures in progress. Urine culture has no growth to date and he is on IV vancomycin and cefepime. Yesterday we ordered a C. difficile PCR which is pending. Patient had a moment of tachycardia into the 130s and a stat EKG was obtained. Patient was given amiodarone bolus by [facility] and cardiology was consulted. Patient is hyperchloremic today however his metabolic acidosis and BUN/creatinine is slightly improved to 93/3.2 from 100/3.6 and his repeat lactic acid is 1.5. At the time my examinati on patient was on Levophed at 6, vasopressin 0.03 and dopamine at 6. This morning patient failed his swallow eval and ST evaluation was ordered. Of note patient's echocardiogram shows reduced 15 to 20% with borderline left ventricular hypertrophy. 06/09: This morning his speech evaluation was completed and he has been cleared for mechanical soft diet with thin liquids. Patient complained of right-sided chest pain with radiation to shoulders and a stat EKG cardiac enzymes were ordered. Patient was recultured yesterday and those have no growth to date and his vancomycin was stopped. Infectious disease team recommends removal of Torres catheter when feasible and a CT abdomen/pelvis when stable. Patient has been cleared to transfer to the floor by cardiology and CCM. 06/10/2020; patient is on IV cefepime for sepsis due to UTI day 3 out of 5. Vancomycin discontinued. Patient is complaining pleuritic chest pain. Patient was evaluated by cardiology for elevated troponin and episode of A. fib on admission. Cardiology discontinued amiodarone and put her on Lopressor. Cardiology recommend against anticoagulation because of patient's anemia. Hemoglobin this morning was 7.4 and anemia work-up is in progress. I did ordered CT abdomen and pelvis. PT OT evaluation. Patient has ISAAC and nephrology is following. Patient has rectal tube and liquid stool in the bag. I ordered stool for C. difficile. We will continue to monitor. 06/11/2020; patient is on cefepime day 5. CT abdomen and pelvis was done and significant for colitis, ischemic colitis is possibility given hypotension and elevated lactic acid level. I will consult GI. Patient has episode of A. fib for less than 24 hours, cardiology was consulted and recommend to be on Lopressor. No need for coagulation because of his anemia. Hemoglobin this morning is improved to 8. Anemia work-up was done, no iron deficiency anemia identified. ISAAC is improving. C. difficile was negative. 06/12/2020; continue cefepime per ID recommendation. CT abdomen and pelvis is significant for ischemic colitis likely due to septic shock, hypotension. Patient was seen by GI and recommend no further intervention at this time. P lucius had episode of A. fib on admission for less than 24 hours and cardiology recommend to continue on Lopressor, no anticoagulation needed. Hemoglobin is improving. Patient came from assisted living facility. Patient need Covid test before discharge. ISAAC is improving. Creatinine this morning was 1.7. Nephrology is following. OT evaluated and recommend subacute rehab, PT evaluation is pending. 06/13: Replace K and Mag, continue to monitor renal fuction, Continue abx per ID, c.diff negative. patient still with Rectal tube and Torres but will re- evaluate for possible discontinuation. Questran started by GI. Will continue to monitor and replace electrolytes Discussed with nursing staff to change torres to condom catheter CM to try and ascertain patients functional status prior to hospitalization 06/14: Patient showing some clinical improvement Torres replaced due to urinary retention about 1000 cc of clear urine removed. Flomax started. PT OT consulted as patient is noted to have been ambulatory prior to this admission will likely need SNF placement. Diarrhea consistency is improving anticipate discharge in 24 to 48 hours once approval is obtained. Cardiology input is noted Lopressor 25 mg p.o. twice daily possible addition of SABIHA inhibitor or ARB when okay with nephrology as regular this is a is improving. At this time no AC for A. fib management due to anemia and the transient nature of the A. fib which was less than 24 hours. 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 Unknown etiology or chronicity of these diagnoses. No current clinical evidence of acutely decompensated HF. Per [facility] records, pt saw [facility] in 1998 and underwent LHC which did not show any significant findings. Continue with conservative cardiac management given pt's advanced age, dementia and multiple co-morbidities. Recommend pt follow up in our office with Dr. Rosa within 2 weeks of discharge ([phone]). 06/15: Continue supportive care. Will give a unit of PRBC and anticipate discharge today or tomorrow once approval from insurance company obtained. PATIENT will need urology follow up outpatient and also cardiology outpatient. Discussed with patient and Case management Continue PT OT 06/16: Still awaiting prior approval from the insurance company for patient to be discharged. Continue supportive care thrombocytopenia noted again antiplatelets are on hold. We will continue to monitor anticipate discharge once prior authorization is received from insurance [id number]. Continue rehab therapy while in house 06/17: Severe hyperkalemia noted in the setting of renal dysfunction. Will hold discharge. Also patient with intermittent fevers culture still on resolved. Bolus of fluid given will also give some Kayexalate to correct hyperkalemia. 06/18: Still with low-grade fever. White count still normal. Potassium mild hypokalemia. Will monitor closely renal function showing some improvement. If continues to improve we will anticipate discharge tomorrow. Still with elevated troponin but improved compared to prior. No respiratory compromise noted at this time diarrhea still present. Will discuss with ID if patient should empirically be treated with p.o. vancomycin despite negative C. difficile for with Flagyl. 06/19: Considering noted deformity on bilateral shoulders will obtain an x-ray just to ensure that there is no other acute event. I reviewed the chart and not has been done. Continue bicarb drip may need to decrease rate but will defer to tile sorter. Awaiting labs from today. Anticipate discharge in a.m. we will also rule out bilateral upper extremity DVT due to the swelling. 06/20: Patient is a 80-year-old male who presented to the hospital for dialysis related facility with complaints of lethargy diminished cognition diagnosed with septic shock with diarrhea but with C. difficile negative during hospital stay was noted to be cardiac arrhythmia with tachycardia resolved with amiodarone. Was also noted to have ISAAC likely secondary to ATN showed some improvement and stabilized. Diarrhea persisted was managed with fecal management system with ID input noted. Fortunately the past few days has been having recurrent fever today noted to have a distended abdomen although nontender CT abdomen and pelvis with oral contrast was added following clearance from tile sorter. 06/21. Patient seen and examined at bedside this morning. Ultrasound of the upper extremities showed no DVT. He has been advised to elevate right upper extremity to improve swelling. Potassium is very low today he will get potassium replacement. Plan for possible discharge tomorrow. Remained afebrile overnight 06/22. Having electrolyte abnormalities. Repleting. Will repeat levels this PM. On Antibiotics for colitis. Will dc when his electrolytes become stable. 06/23. Plan for discharge today as electrolytes have improved. COVID-19 test was positive so he would not go to [place] as per briefcase sewer. Plan to search for facilities that will accept him 06/24. Electrolytes have normalized. Awaiting placement 06/25. Complains of pain around the buttock area. Resumed home dose oxycodone yesterday. 06/26. Needs placement. To complete antibiotics tomorrow. 06/27. Pending placement. Continue wound care. Vitals stable 06/28: Patient still awaiting placement. Noted to have swelling of the right upper extremity. Appears to be dependent. Discussed with nursing staff to elevate upper extremity. 06/29: Patient seen and examined, Continue supportive discussed with case management today will work on seeing if the facility he came from will accept him back. Still recommended outpatient urology evaluation. Upper extremity swell ing continues to show some improvement with elevation. 06/30: No new complaints at this time. We will recheck his lab test to evaluate renal function. Of also discussed with case management for continued PT OT evaluation. While awaiting return to outpatient facility. 07/01: Mr. Nair remains with right upper extremity swelling especially when dependent. Encourage nurses to place a pillow to elevate and drain by gravity. We will give a dose of Lasix today. He is awaiting discharge back to the facility he came from [facility] home health is arranged. Otherwise he is medically cleared. 07/02/2020 No new complaints Awaiting placement Objective - Constitutional Vitals: Vital Signs - 12hr 07/02/20 11:01 Pulse Rate 82 Blood Pressure 130/64 General appearance: Present: no acute distress, well-nourished - EENT Eyes: PERRL, EOM intact ENT: hearing intact, clear oral mucosa Ears: bilateral: normal - Neck Neck: supple, normal ROM - Respiratory Respiratory effort: normal Respiratory: bilateral: CTA - Breasts Breasts: normal - Cardiovascular Rhythm: regular Heart Sounds: Present: S1 & S2. Absent: gallop, rub Extremities: pulses intact, No edema, normal color, Full ROM Extremity abnormal: other (Sacral decubitus ulcer) - Gastrointestinal General gastrointestinal: Present: soft, non-tender, non-distended, normal bowel sounds - Genitourinary Male genitourinary: normal - Integumentary Integumentary: clear, warm, dry - Musculoskeletal Musculoskeletal: strength equal bilaterally, generalized weakness - Neurologic Neurologic: moves all extremities - Psychiatric Psychiatric: memory intact, appropriate mood/affect, intact judgment & insight - Labs CBC & Chem 7: 07/01/20 08:12 07/07/20 08:07 Labs: Abnormal lab results 07/02/20 Range/Units 07:08 Sodium 136 L (137-145) mmol/L Calcium 6.9 L (8.4-10.2) mg/dL HEART Score - HEART Score Troponin: Troponin T 0.141 ng/mL (0.00-0.029) H* 04/17/21 10:39
[2020-07-02] MEDS: PRAVASTATIN 20 MG TAB PO SCH (23:28)
[2020-07-02] MEDS: ACETAMINOPHEN 325 MG TAB PO PRN (23:28)
[2020-07-03] MEDS: FUROSEMIDE 40 MG TAB PO SCH (05:16)
--- NOTE | 2020-07-03 08:46 | Progress Note ---
Assessment and Plan Diagnosis Septic Shock-resolved. Metabolic encephalopathy. Coag negative Staphylococcus 1/4 bottles. Likely contaminant Urinary tract infection. Urine culture showed no growth. Extensive colitis: C. difficile negative. Acute hypoxic respiratory failure-improved. Acute kidney injury secondary to vasomotor nephropathy. Atrial fibrillation with RVR-rate is well controlled. On amiodarone. Cardi ology recommendations appreciated. No indication for anticoagulation due to transient history of atrial fibrillation and anemia as per cardiology. Recurrent fevers. Electrolyte abnormalities-Resolved COVID-19 infection-stable. Sacral ulcer-regular turning. Zinc oxide barrier cream PRN Chronic bilateral shoulder distal care Discharge planning. Plan to discharge to skilled facility when accepted Subjective Date of service: 07/02/20 Principal diagnosis: shock Objective - Constitutional Vitals: Vital Signs - 12hr 07/02/20 07/03/20 07/03/20 22:00 00:48 04:57 Temperature 99.2 F 98.6 F Pulse Rate 78 79 Respiratory 18 18 20 Rate Blood Pressure 149/68 164/62 O2 Sat by Pulse 98 98 Oximetry General appearance: Present: no acute distress, well-nourished - EENT Eyes: PERRL, EOM intact ENT: hearing intact, clear oral mucosa Ears: bilateral: normal - Neck Neck: supple, normal ROM - Respiratory Respiratory effort: normal Respiratory: bilateral: CTA - Breasts Breasts: normal - Cardiovascular Rhythm: regular Heart Sounds: Present: S1 & S2. Absent: gallop, rub Extremities: pulses intact, No edema, normal color, Full ROM - Gastrointestinal General gastrointestinal: Present: soft, non-tender, non-distended, normal bowel sounds - Genitourinary Male genitourinary: normal - Integumentary Integumentary: clear, warm, dry - Musculoskeletal Musculoskeletal: 1, strength equal bilaterally - Neurologic Neurologic: moves all extremities - Psychiatric Psychiatric: memory intact, appropriate mood/affect, intact judgment & insight - Labs CBC & Chem 7: 07/01/20 08:12 07/02/20 07:08 Labs: Abnormal lab results 07/02/20 Range/Units 07:08 Sodium 136 L (137-145) mmol/L Calcium 6.9 L (8.4-10.2) mg/dL HEART Score - HEART Score Troponin: Troponin T 0.141 ng/mL (0.00-0.029) H* 06/18/20 10:39
--- NOTE | 2020-07-03 08:47 | Progress Note ---
Assessment and Plan Diagnosis Septic Shock-resolved. Metabolic encephalopathy. Coag negative Staphylococcus 1/4 bottles. Likely contaminant Urinary tract infection. Urine culture showed no growth. Extensive colitis: C. difficile negative. Acute hypoxic respiratory failure-improved. Acute kidney injury secondary to vasomotor nephropathy. Atrial fibrillation with RVR-rate is well controlled. On amiodarone. Cardi ology recommendations appreciated. No indication for anticoagulation due to transient history of atrial fibrillation and anemia as per cardiology. Recurrent fevers. Electrolyte abnormalities-Resolved COVID-19 infection-stable. Sacral ulcer-regular turning. Zinc oxide barrier cream PRN Chronic bilateral shoulder distal care Discharge planning. Plan to discharge to skilled facility when accepted Subjective Date of service: 07/03/20 Principal diagnosis: Septic shock Interval history: 80-year-old male who is a resident of assisted living facility with vascular dementia, cerebral sclerosis, debility, diabetes mellitus who presents to the emergency department on 06/06 with complaints of lethargy and diminished cognition as per daughter he developed an episode of unresponsiveness while at breakfast at at his assisted living facility. Patient was found to have a urinary tract infection complicated by sepsis and septic shock, acute kidney injury, toxic metabolic encephalopathy as well as metabolic acidosis. Patient was hypotensive with systolic blood pressures in the 50s and was initiated on vasopressor support in the emergency department. Patient was admitted to the hospital service with consults to nephrology and [facility]. Hospital course 06/07: Patient remains on dopamine, vasopressin and Levophed. Nephrology has started the patient on sodium bicarbonate drip for metabolic acidosis. Infectious disease initiated vancomycin in addition to the cefepime and ordered a C. difficile. 06/08: Patient has gram-positive cocci bacteremia in 1/4 bottles which grew to be coag negative staph coccus and he has repeat blood cultures in progress. Urine culture has no growth to date and he is on IV vancomycin and cefepime. Yesterday we ordered a C. difficile PCR which is pending. Patient had a moment of tachycardia into the 130s and a stat EKG was obtained. Patient was given amiodarone bolus by [facility] and cardiology was consulted. Patient is hyperchloremic today however his metabolic acidosis and BUN/creatinine is slightly improved to 93/3.2 from 100/3.6 and his repeat lactic acid is 1.5. At the time my examination patient was on Levophed at 6, vasopressin 0.03 and dopamine at 6. This morning patient failed his swallow eval and ST evaluation was ordered. Of note patient's echocardiogram shows reduced 15 to 20% with borderline left ventricular hypertrophy. 06/09: This morning his speech evaluation was completed and he has been cleared for mechanical soft diet with thin liquids. Patient complained of right-sided chest pain with radiation to shoulders and a stat EKG cardiac enzymes were ordered. Patient was recultured yesterday and those have no growth to date and his vancomycin was stopped. Infectious disease team recommends removal of Torres catheter when feasible and a CT abdomen/pelvis when stable. Patient has been cleared to transfer to the floor by cardiology and CCM. 06/10/2020; patient is on IV cefepime for sepsis due to UTI day 3 out of 5. Vancomycin discontinued. Patient is complaining pleuritic chest pain. Patient was evaluated by cardiology for elevated troponin and episode of A. fib on admission. Cardiology discontinued amiodarone and put her on Lopressor. Cardiology recommend against anticoagulation because of patient's anemia. Hemoglobin this morning was 7.4 and anemia work-up is in progress. I did ordered CT abdomen and pelvis. PT OT evaluation. Patient has ISAAC and nephrology is following. Patient has rectal tube and liquid stool in the bag. I ordered stool for C. difficile. We will continue to monitor. 06/11/2020; patient is on cefepime day 06/06. CT abdomen and pelvis was done and significant for colitis, ischemic colitis is possibility given hypotension and elevated lactic acid level. I will consult GI. Patient has episode of A. fib for less than 24 hours, cardiology was consulted and recommend to be on Lopressor. No need for coagulation because of his anemia. Hemoglobin this morning is improved to 8. Anemia work-up was done, no iron deficiency anemia identified. ISAAC is improving. C. difficile was negative. 06/12/2020; continue cefepime per ID recommendation. CT abdomen and pelvis is significant for ischemic colitis likely due to septic shock, hypotension. Patient was seen by GI and recommend no further intervention at this time. Patient had episode of A. fib on admission for less than 24 hours and cardiology recommend to continue on Lopressor, no anticoagulation needed. Hemoglobin is improving. Patient came from assisted living facility. Patient need Covid test before discharge. ISAAC is improving. Creatinine this morning was 1.7. Nephrology is following. OT evaluated and recommend subacute rehab, PT evaluation is pending. 06/13: Replace K and Mag, continue to monitor renal fuction, Continue abx per ID, c.diff negative. patient still with Rectal tube and Torres but will re- evaluate for possible discontinuation. Questran started by GI. Will continue to monitor and replace electrolytes Discussed with nursing staff to change torres to condom catheter CM to try and ascertain patients functional status prior to hospitalization 06/14: Patient showing some clinical improvement Torres replaced due to urinary retention about 1000 cc of clear urine removed. Flomax started. PT OT consulted as patient is noted to have been ambulatory prior to this admission will likely need SNF placement. Diarrhea consistency is improving anticipate di scharge in 24 to 48 hours once approval is obtained. Cardiology input is noted Lopressor 25 mg p.o. twice daily possible addition of SABIHA inhibitor or ARB when okay with nephrology as regular this is a is improving. At this time no AC for A. fib management due to anemia and the transient nature of the A. fib which was less than 24 hours. 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 Unknown etiology or chronicity of these diagnoses. No current clinical evidence of acutely decompensated HF. Per [facility] records, pt saw [facility] in 1998 and underwent LHC which did not show any significant findings. Continue with conservative cardiac management given pt's advanced age, dementia and multiple co-morbidities. Recommend pt follow up in our office with Dr. Rosa within 2 weeks of discharge ([phone]). 06/15: Continue supportive care. Will give a unit of PRBC and anticipate discharge today or tomorrow once approval from insurance company obtained. PATIENT will need urology follow up outpatient and also cardiology outpatient. Discussed with patient and Case management Continue PT OT 06/16: Still awaiting prior approval from the insurance company for patient to be discharged. Continue supportive care thrombocytopenia noted again antiplatelets are on hold. We will continue to monitor anticipate discharge once prior authorization is received from insurance [employer]. Continue rehab therapy while in house 06/17: Severe hyperkalemia noted in the setting of renal dysfunction. Will hold discharge. Also patient with intermittent fevers culture still on resolved. Bolus of fluid given will also give some Kayexalate to correct hyperkalemia. 06/18: Still with low-grade fever. White count still normal. Potassium mild hypokalemia. Will monitor closely renal function showing some improvement. If continues to improve we will anticipate discharge tomorrow. Still with elevated troponin but improved compared to prior. No respiratory compromise noted at this time diarrhea still present. Will discuss with ID if patient should empirically be treated with p.o. vancomycin despite negative C. difficile for with Flagyl. 06/19: Considering noted deformity on bilateral shoulders will obtain an x-ray just to ensure that there is no other acute event. I reviewed the chart and not has been done. Continue bicarb drip may need to decrease rate but will defer to paperboard box maker. Awaiting labs from today. Anticipate discharge in a.m. we will also rule out bilateral upper extremity DVT due to the swelling. 06/20: Patient is a 80-year-old male who presented to the hospital for dialysis related facility with complaints of lethargy diminished cognition diagnosed with septic shock with diarrhea but with C. difficile negative during hospital stay was noted to be cardiac arrhythmia with tachycardia resolved with amiodarone. Was also noted to have ISAAC likely secondary to ATN showed some improvement and stabilized. Diarrhea persisted was managed with fecal management system with ID input noted. Fortunately the past few days has been having recurrent fever today noted to have a distended abdomen although nontender CT abdomen and pelvis with oral contrast was added following clearance from paperboard box maker. 06/21. Patient seen and examined at bedside this morning. Ultrasound of the upper extremities showed no DVT. He has been advised to elevate right upper extremity to improve swelling. Potassium is very low today he will get potassium replacement. Plan for possible discharge tomorrow. Remained afebrile overnight 06/22. Having electrolyte abnormalities. Repleting. Will repeat levels this PM. On Antibiotics for colitis. Will dc when his electrolytes become stable. 06/23. Plan for discharge today as electrolytes have improved. COVID-19 test was positive so he would not go to [place] as per watch case polisher. Plan to search for facilities that will accept him 06/24. Electrolytes have normalized. Awaiting placement 06/25. Complains of pain around the buttock area. Resumed home dose oxycodone yesterday. 06/26. Needs placement. To complete antibiotics tomorrow. 06/27. Pending placement. Continue wound care. Vitals stable 06/28: Patient still awaiting placement. Noted to have swelling of the right upper extremity. Appears to be dependent. Discussed with nursing staff to elevate upper extremity. 06/29: Patient seen and examined, Continue supportive discussed with case management today will work on seeing if the facility he came from will accept him back. Still recommended outpatient urology evaluation. Upper extremity swelling continues to show some improvement with elevation. 06/30: No new complaints at this time. We will recheck his lab test to evaluate renal function. Of also discussed with case management for continued PT OT evaluation. While awaiting return to outpatient facility. 07/01: Mr. Nair remains with right upper extremity swelling especially when dependent. Encourage nurses to place a pillow to elevate and drain by gravity. We will give a dose of Lasix today. He is awaiting discharge back to the facility he came from [facility] is arranged. Otherwise he is medically cleared. 07/02/2020 No new complaints Awaiting placement 07/03/2020 No new complaints Awaiting placement Objective - Constitutional Vitals: Vital Signs - 12hr 07/02/20 07/03/20 07/03/20 22:00 00:48 04:57 Temperature 99.2 F 98.6 F Pulse Rate 78 79 Respiratory 18 18 20 Rate Blood Pressure 149/68 164/62 O2 Sat by Pulse 98 98 Oximetry General appearance: Present: no acute distress, well-nourished - EENT Eyes: PERRL, EOM intact ENT: hearing intact, clear oral mucosa Ears: bilateral: normal - Neck Neck: supple, normal ROM - Respiratory Respiratory effort: normal Respiratory: bilateral: CTA - Breasts Breasts: normal - Cardiovascular Rhythm: regular Heart Sounds: Present: S1 & S2. Absent: gallop, rub Extremities: pulses intact, No edema, normal color, Full ROM Extremity abnormal: other (Sacral decubitus ulcers) - Gastrointestinal General gastrointestinal: Present: soft, non-tender, non-distended, normal bowel sounds - Genitourinary Male genitourinary: normal - Integumentary Integumentary: clear, warm, dry - Musculoskeletal Musculoskeletal: 1, strength equal bilaterally - Neurologic Neurologic: moves all extremities - Psychiatric Psychiatric: memory intact, appropriate mood/affect, intact judgment & insight - Labs CBC & Chem 7: 07/01/20 08:12 07/07/20 08:07 Labs: Abnormal lab results 07/02/20 Range/Units 07:08 Sodium 136 L (137-145) mmol/L Calcium 6.9 L (8.4-10.2) mg/dL HEART Score - HEART Score Troponin: Troponin T 0.141 ng/mL (0.00-0.029) H* 06/18/20 10:39
[2020-07-03] MEDS: SODIUM BICARBONATE 650 MG TAB PO SCH ×3 (09:01→21:15)
[2020-07-03] MEDS: CHOLESTYRAMINE (WITH SUGAR) 4 GM PACKET PO SCH ×2 (09:01→21:16)
[2020-07-03] MEDS: TAMSULOSIN 0.4 MG CAP PO SCH (09:02)
[2020-07-03] MEDS: oxyCODONE /ACETAMINOPHEN 5-325MG TAB PO PRN ×2 (09:02→21:17)
[2020-07-03] MEDS: allopurinoL 100 MG TAB PO SCH (09:02)
[2020-07-03] MEDS: CHOLECALCIFEROL (VIT D3) 1000 UNIT (25 mcg) TAB PO SCH (09:02)
[2020-07-03] MEDS: DICYCLOMINE 10 MG CAP PO SCH ×3 (09:03→21:14)
[2020-07-03] MEDS: METOPROLOL TARTRATE 25 MG TAB PO SCH ×2 (09:03→22:44)
[2020-07-03] MEDS: FAMOTIDINE 20 MG TAB PO SCH (09:04)
[2020-07-03] MEDS: CALCIUM CARBONATE 500 MG TAB CHEW PO SCH (09:04)
[2020-07-03] MEDS: ZINC OXIDE 20% OINT 28.35 GM TP SCH ×2 (09:05→21:16)
--- NOTE | 2020-07-03 15:13 | Progress Note ---
Assessment and Plan Diagnosis Septic Shock-resolved. Metabolic encephalopathy. Coag negative Staphylococcus 1/4 bottles. Likely contaminant Urinary tract infection. Urine culture showed no growth. Extensive colitis: C. difficile negative. Acute hypoxic respiratory failure-improved. Acute kidney injury secondary to vasomotor nephropathy. Atrial fibrillation with RVR-rate is well controlled. On amiodarone. Cardi ology recommendations appreciated. No indication for anticoagulation due to transient history of atrial fibrillation and anemia as per cardiology. Recurrent fevers. Electrolyte abnormalities-Resolved COVID-19 infection-stable. Sacral ulcer-regular turning. Zinc oxide barrier cream PRN Chronic bilateral shoulder distal care Discharge planning. Plan to discharge to skilled facility when accepted Subjective Date of service: 07/05/20 Principal diagnosis: Septic shock Interval history: 80-year-old male who is a resident of assisted living facility with vascular dementia, cerebral sclerosis, debility, diabetes mellitus who presents to the emergency department on 06/06 with complaints of lethargy and diminished cognition as per daughter he developed an episode of unresponsiveness while at breakfast at at his assisted living facility. Patient was found to have a urinary tract infection complicated by sepsis and septic shock, acute kidney injury, toxic metabolic encephalopathy as well as metabolic acidosis. Patient was hypotensive with systolic blood pressures in the 50s and was initiated on vasopressor support in the emergency department. Patient was admitted to the hospital service with consults to nephrology and [facility]. Hospital course 06/07: Patient remains on dopamine, vasopressin and Levophed. Nephrology has started the patient on sodium bicarbonate drip for metabolic acidosis. Infectious disease initiated vancomycin in addition to the cefepime and ordered a C. difficile. 06/08: Patient has gram-positive cocci bacteremia in 1/4 bottles which grew to be coag negative staph coccus and he has repeat blood cultures in progress. Urine culture has no growth to date and he is on IV vancomycin and cefepime. Yesterday we ordered a C. difficile PCR which is pending. Patient had a moment of tachycardia into the 130s and a stat EKG was obtained. Patient was given amiodarone bolus by [facility] and cardiology was consulted. Patient is hyperchloremic today however his metabolic acidosis and BUN/creatinine is slightly improved to 93/3.2 from 100/3.6 and his repeat lactic acid is 1.5. At the time my examination patient was on Levophed at 6, vasopressin 0.03 and dopamine at 6. This morning patient failed his swallow eval and ST evaluation was ordered. Of note patient's echocardiogram shows reduced 15 to 20% with borderline left ventricular hypertrophy. 06/09: This morning his speech evaluation was completed and he has been cleared for mechanical soft diet with thin liquids. Patient complained of right-sided chest pain with radiation to shoulders and a stat EKG cardiac enzymes were ordered. Patient was recultured yesterday and those have no growth to date and his vancomycin was stopped. Infectious disease team recommends removal of Torres catheter when feasible and a CT abdomen/pelvis when stable. Patient has been cleared to transfer to the floor by cardiology and CCM. 06/10/2020; patient is on IV cefepime for sepsis due to UTI day 3 out of 5. Vancomycin discontinued. Patient is complaining pleuritic chest pain. Patient was evaluated by cardiology for elevated troponin and episode of A. fib on admission. Cardiology discontinued amiodarone and put her on Lopressor. Cardiology recommend against anticoagulation because of patient's anemia. Hemoglobin this morning was 7.4 and anemia work-up is in progress. I did ordered CT abdomen and pelvis. PT OT evaluation. Patient has ISAAC and nephrology is following. Patient has rectal tube and liquid stool in the bag. I ordered stool for C. difficile. We will continue to monitor. 06/11/2020; patient is on cefepime day 06/06. CT abdomen and pelvis was done and significant for colitis, ischemic colitis is possibility given hypotension and elevated lactic acid level. I will consult GI. Patient has episode of A. fib for less than 24 hours, cardiology was consulted and recommend to be on Lopressor. No need for coagulation because of his anemia. Hemoglobin this morning is improved to 8. Anemia work-up was done, no iron deficiency anemia identified. ISAAC is improving. C. difficile was negative. 06/12/2020; continue cefepime per ID recommendation. CT abdomen and pelvis is significant for ischemic colitis likely due to septic shock, hypotension. Patient was seen by GI and recommend no further intervention at this time. Patient had episode of A. fib on admission for less than 24 hours and cardiology recommend to continue on Lopressor, no anticoagulation needed. Hemoglobin is improving. Patient came from assisted living facility. Patient need Covid test before discharge. ISAAC is improving. Creatinine this morning was 1.7. Nephrology is following. OT evaluated and recommend subacute rehab, PT evaluation is pending. 06/13: Replace K and Mag, continue to monitor renal fuction, Continue abx per ID, c.diff negative. patient still with Rectal tube and Torres but will re- evaluate for possible discontinuation. Questran started by GI. Will continue to monitor and replace electrolytes Discussed with nursing staff to change torres to condom catheter CM to try and ascertain patients functional status prior to hospitalization 06/14: Patient showing some clinical improvement Torres replaced due to urinary retention about 1000 cc of clear urine removed. Flomax started. PT OT consulted as patient is noted to have been ambulatory prior to this admission will likely need SNF placement. Diarrhea consistency is improving anticipate di scharge in 24 to 48 hours once approval is obtained. Cardiology input is noted Lopressor 25 mg p.o. twice daily possible addition of SABIHA inhibitor or ARB when okay with nephrology as regular this is a is improving. At this time no AC for A. fib management due to anemia and the transient nature of the A. fib which was less than 24 hours. 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 Unknown etiology or chronicity of these diagnoses. No current clinical evidence of acutely decompensated HF. Per [facility] records, pt saw [facility]ology in 1998 and underwent LHC which did not show any significant findings. Continue with conservative cardiac management given pt's advanced age, dementia and multiple co-morbidities. Recommend pt follow up in our office with Dr. Rosa within 2 weeks of discharge ([phone]). 06/15: Continue supportive care. Will give a unit of PRBC and anticipate discharge today or tomorrow once approval from insurance company obtained. PATIENT will need urology follow up outpatient and also cardiology outpatient. Discussed with patient and Case management Continue PT OT 06/16: Still awaiting prior approval from the insurance company for patient to be discharged. Continue supportive care thrombocytopenia noted again antiplatelets are on hold. We will continue to monitor anticipate discharge once prior authorization is received from insurance [employer]. Continue rehab therapy while in house 06/17: Severe hyperkalemia noted in the setting of renal dysfunction. Will hold discharge. Also patient with intermittent fevers culture still on resolved. Bolus of fluid given will also give some Kayexalate to correct hyperkalemia. 06/18: Still with low-grade fever. White count still normal. Potassium mild hypokalemia. Will monitor closely renal function showing some improvement. If continues to improve we will anticipate discharge tomorrow. Still with elevated troponin but improved compared to prior. No respiratory compromise noted at this time diarrhea still present. Will discuss with ID if patient should empirically be treated with p.o. vancomycin despite negative C. difficile for with Flagyl. 06/19: Considering noted deformity on bilateral shoulders will obtain an x-ray just to ensure that there is no other acute event. I reviewed the chart and not has been done. Continue bicarb drip may need to decrease rate but will defer to [facility] low pressure. Awaiting labs from today. Anticipate discharge in a.m. we will also rule out bilateral upper extremity DVT due to the swelling. 06/20: Patient is a 80-year-old male who presented to the hospital for dialysis related facility with complaints of lethargy diminished cognition diagnosed with septic shock with diarrhea but with C. difficile negative during hospital stay was noted to be cardiac arrhythmia with tachycardia resolved with amiodarone. Was also noted to have ISAAC likely secondary to ATN showed some improvement and stabilized. Diarrhea persisted was managed with fecal management system with ID input noted. Fortunately the past few days has been having recurrent fever today noted to have a distended abdomen although nontender CT abdomen and pelvis with oral contrast was added following clearance from [facility] low pressure. 06/21. Patient seen and examined at bedside this morning. Ultrasound of the upper extremities showed no DVT. He has been advised to elevate right upper extremity to improve swelling. Potassium is very low today he will get potassium replacement. Plan for possible discharge tomorrow. Remained afebrile overnight 06/22. Having electrolyte abnormalities. Repleting. Will repeat levels this PM. On Antibiotics for colitis. Will dc when his electrolytes become stable. 06/23. Plan for discharge today as electrolytes have improved. COVID-19 test was positive so he would not go to [place] as per director of casework services. Plan to search for facilities that will accept him 06/24. Electrolytes have normalized. Awaiting placement 06/25. Complains of pain around the buttock area. Resumed home dose oxycodone yesterday. 06/26. Needs placement. To complete antibiotics tomorrow. 06/27. Pending placement. Continue wound care. Vitals stable 06/28: Patient still awaiting placement. Noted to have swelling of the right upper extremity. Appears to be dependent. Discussed with nursing staff to elevate upper extremity. 06/29: Patient seen and examined, Continue supportive discussed with case management today will work on seeing if the facility he came from will accept him back. Still recommended outpatient urology evaluation. Upper extremity swelling continues to show some improvement with elevation. 06/30: No new complaints at this time. We will recheck his lab test to evaluate renal function. Of also discussed with case management for continued PT OT evaluation. While awaiting return to outpatient facility. 07/01: Mr. Nair remains with right upper extremity swelling especially when dependent. Encourage nurses to place a pillow to elevate and drain by gravity. We will give a dose of Lasix today. He is awaiting discharge back to the facility he came [facility] is arranged. Otherwise he is medically cleared. 07/02/2020 No new complaints Awaiting placement 07/03/2020 No new complaints Awaiting placement 07/04/2020 07/04/2020 No new complaints Awaiting placement 07/05/2020 No new complaints awaiting placement Objective - Constitutional Vitals: Vital Signs - 12hr 07/03/20 07/03/20 07/03/20 04:57 09:03 12:59 Temperature 98.6 F 98.1 F Pulse Rate 79 82 71 Respiratory 20 20 Rate Blood Pressure 164/62 148/64 141/60 O2 Sat by Pulse 98 99 Oximetry General appearance: Present: no acute distress, well-nourished - EENT Eyes: PERRL, EOM intact ENT: hearing intact, clear oral mucosa Ears: bilateral: normal - Neck Neck: supple, normal ROM - Respiratory Respiratory effort: normal Respiratory: bilateral: CTA - Breasts Breasts: normal - Cardiovascular Heart rate: 78 Rhythm: regular Heart Sounds: Present: S1 & S2. Absent: gallop, rub Extremities: pulses intact, No edema, normal color, Full ROM Extremity abnormal: other (Sacral decubitus ulcer) - Gastrointestinal General gastrointestinal: Present: soft, non-tender, non-distended, normal bowel sounds - Genitourinary Male genitourinary: normal - Integumentary Integumentary: clear, warm, dry - Musculoskeletal Musculoskeletal: 1, strength equal bilaterally - Neurologic Neurologic: moves all extremities - Psychiatric Psychiatric: memory intact, appropriate mood/affect, intact judgment & insight - Labs CBC & Chem 7: 04/30/21 08:12 07/07/20 08:07 HEART Score - HEART Score Troponin: Troponin T 0.141 ng/mL (0.00-0.029) H* 06/18/20 10:39
[2020-07-03] MEDS: PRAVASTATIN 20 MG TAB PO SCH (21:15)
[2020-07-04] MEDS: oxyCODONE /ACETAMINOPHEN 5-325MG TAB PO PRN (04:38)
[2020-07-04] MEDS: FUROSEMIDE 40 MG TAB PO SCH (05:44)
[2020-07-04] MEDS: DICYCLOMINE 10 MG CAP PO SCH ×2 (09:23→15:23)
[2020-07-04] MEDS: SODIUM BICARBONATE 650 MG TAB PO SCH ×2 (09:24→14:24)
[2020-07-04] MEDS: FAMOTIDINE 20 MG TAB PO SCH (09:25)
[2020-07-04] MEDS: METOPROLOL TARTRATE 25 MG TAB PO SCH (10:27)
[2020-07-04] MEDS: ZINC OXIDE 20% OINT 28.35 GM TP SCH (10:28)
[2020-07-04] MEDS: CHOLESTYRAMINE (WITH SUGAR) 4 GM PACKET PO SCH (11:21)
[2020-07-04] MEDS: allopurinoL 100 MG TAB PO SCH (11:22)
[2020-07-04] MEDS: CALCIUM CARBONATE 500 MG TAB CHEW PO SCH (11:22)
[2020-07-04] MEDS: CHOLECALCIFEROL (VIT D3) 1000 UNIT (25 mcg) TAB PO SCH (11:23)
[2020-07-04] MEDS: TAMSULOSIN 0.4 MG CAP PO SCH (11:25)
[2020-07-05] MEDS: SODIUM BICARBONATE 650 MG TAB PO SCH ×4 (00:18→22:34)
[2020-07-05] MEDS: CHOLESTYRAMINE (WITH SUGAR) 4 GM PACKET PO SCH ×3 (00:18→22:34)
[2020-07-05] MEDS: PRAVASTATIN 20 MG TAB PO SCH ×2 (00:18→22:33)
[2020-07-05] MEDS: DICYCLOMINE 10 MG CAP PO SCH ×4 (00:18→22:34)
[2020-07-05] MEDS: ZINC OXIDE 20% OINT 28.35 GM TP SCH ×3 (00:22→22:35)
[2020-07-05] MEDS: METOPROLOL TARTRATE 25 MG TAB PO SCH ×3 (00:23→22:34)
[2020-07-05] MEDS: FUROSEMIDE 40 MG TAB PO SCH (06:07)
--- NOTE | 2020-07-05 08:03 | Progress Note ---
Assessment and Plan Diagnosis Septic Shock-resolved. Metabolic encephalopathy. Coag negative Staphylococcus 1/4 bottles. Likely contaminant Urinary tract infection. Urine culture showed no growth. Extensive colitis: C. difficile negative. Acute hypoxic respiratory failure-improved. Acute kidney injury secondary to vasomotor nephropathy. Atrial fibrillation with RVR-rate is well controlled. On amiodarone. Cardi ology recommendations appreciated. No indication for anticoagulation due to transient history of atrial fibrillation and anemia as per cardiology. Recurrent fevers. Electrolyte abnormalities-Resolved COVID-19 infection-stable. Sacral ulcer-regular turning. Zinc oxide barrier cream PRN Chronic bilateral shoulder distal care Discharge planning. Plan to discharge to skilled facility when accepted Subjective Date of service: 07/04/20 Principal diagnosis: shock Interval history: 80-year-old male who is a resident of assisted living facility with vascular dementia, cerebral sclerosis, debility, diabetes mellitus who presents to the emergency department on 06/06 with complaints of lethargy and diminished cognition as per daughter he developed an episode of unresponsiveness while at breakfast at at his assisted living facility. Patient was found to have a urinary tract infection complicated by sepsis and septic shock, acute kidney injury, toxic metabolic encephalopathy as well as metabolic acidosis. Patient was hypotensive with systolic blood pressures in the 50s and was initiated on vasopressor support in the emergency department. Patient was admitted to the hospital service with consults to nephrology and [facility]. Hospital course 06/07: Patient remains on dopamine, vasopressin and Levophed. Nephrology has started the patient on sodium bicarbonate drip for metabolic acidosis. Infectious disease initiated vancomycin in addition to the cefepime and ordered a C. difficile. 06/08: Patient has gram-positive cocci bacteremia in 1/4 bottles which grew to be coag negative staph coccus and he has repeat blood cultures in progress. Urine culture has no growth to date and he is on IV vancomycin and cefepime. Yesterday we ordered a C. difficile PCR which is pending. Patient had a moment of tachycardia into the 130s and a stat EKG was obtained. Patient was given amiodarone bolus by [facility] and cardiology was consulted. Patient is hyperchloremic today however his metabolic acidosis and BUN/creatinine is slightly improved to 93/3.2 from 100/3.6 and his repeat lactic acid is 1.5. At the time my examination patient was on Levophed at 6, vasopressin 0.03 and dopamine at 6. This morning patient failed his swallow eval and ST evaluation was ordered. Of note patient's echocardiogram shows reduced 15 to 20% with borderline left abhi tricular hypertrophy. 06/09: This morning his speech evaluation was completed and he has been cleared for mechanical soft diet with thin liquids. Patient complained of right-sided chest pain with radiation to shoulders and a stat EKG cardiac enzymes were ordered. Patient was recultured yesterday and those have no growth to date and his vancomycin was stopped. Infectious disease team recommends removal of Torres catheter when feasible and a CT abdomen/pelvis when stable. Patient has been cleared to transfer to the floor by cardiology and CCM. 06/10/2020; patient is on IV cefepime for sepsis due to UTI day 3 out of 5. Vancomycin discontinued. Patient is complaining pleuritic chest pain. Patient was evaluated by cardiology for elevated troponin and episode of A. fib on admission. Cardiology discontinued amiodarone and put her on Lopressor. Cardiology recommend against anticoagulation because of patient's anemia. Hemoglobin this morning was 7.4 and anemia work-up is in progress. I did ordered CT abdomen and pelvis. PT OT evaluation. Patient has ISAAC and nephrology is following. Patient has rectal tube and liquid stool in the bag. I ordered stool for C. difficile. We will continue to monitor. 06/11/2020; patient is on cefepime day 5. CT abdomen and pelvis was done and s ignificant for colitis, ischemic colitis is possibility given hypotension and elevated lactic acid level. I will consult GI. Patient has episode of A. fib for less than 24 hours, cardiology was consulted and recommend to be on Lopressor. No need for coagulation because of his anemia. Hemoglobin this morning is improved to 8. Anemia work-up was done, no iron deficiency anemia identified. ISAAC is improving. C. difficile was negative. 06/12/2020; continue cefepime per ID recommendation. CT abdomen and pelvis is significant for ischemic colitis likely due to septic shock, hypotension. Ritika ent was seen by GI and recommend no further intervention at this time. Patient had episode of A. fib on admission for less than 24 hours and cardiology recommend to continue on Lopressor, no anticoagulation needed. Hemoglobin is improving. Patient came from assisted living facility. Patient need Covid test before discharge. ISAAC is improving. Creatinine this morning was 1.7. Nephrology is following. OT evaluated and recommend subacute rehab, PT evaluation is pending. 06/13: Replace K and Mag, continue to monitor renal fuction, Continue abx per ID, c.diff negative. patient still with Rectal tube and Torres but will re- evaluate for possible discontinuation. Questran started by GI. Will continue to monitor and replace electrolytes Discussed with nursing staff to change torres to condom catheter CM to try and ascertain patients functional status prior to hospitalization 06/14: Patient showing some clinical improvement Torres replaced due to urinary retention about 1000 cc of clear urine removed. Flomax started. PT OT consulted as patient is noted to have been ambulatory prior to this admission will likely need SNF placement. Diarrhea consistency is improving anticipate discharge in 24 to 48 hours once approval is obtained. Cardiology input is noted Lopressor 25 mg p.o. twice daily possible addition of SABIHA inhibitor or ARB when okay with nephrology as regular this is a is improving. At this time no AC for A. fib management due to anemia and the transient nature of the A. fib which was less than 24 hours. 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 Unknown etiology or chronicity of these diagnoses. No current clinical evidence of acutely decompensated HF. Per [facility] records, pt saw [facility] in 1998 and underwent LHC which did not show any significant findings. Continue with conservative cardiac management given pt's advanced age, dementia and multiple co-morbidities. Recommend pt follow up in our office with Dr. Rosa within 2 weeks of discharge ([phone]). 06/15: Continue supportive care. Will give a unit of PRBC and anticipate discharge today or tomorrow once approval from insurance company obtained. PATIENT will need urology follow up outpatient and also cardiology outpatient. Discussed with patient and Case management Continue PT OT 06/16: Still awaiting prior approval from the insurance company for patient to be discharged. Continue supportive care thrombocytopenia noted again antiplatelets are on hold. We will continue to monitor anticipate discharge once prior authorization is received from insurance [employer]. Continue rehab therapy while in house 06/17: Severe hyperkalemia noted in the setting of renal dysfunction. Will hold discharge. Also patient with intermittent fevers culture still on resolved. Bolus of fluid given will also give some Kayexalate to correct hyperkalemia. 06/18: Still with low-grade fever. White count still normal. Potassium mild hypokalemia. Will monitor closely renal function showing some improvement. If continues to improve we will anticipate discharge tomorrow. Still with elevated troponin but improved compared to prior. No respiratory compromise noted at this time diarrhea still present. Will discuss with ID if patient should empirically be treated with p.o. vancomycin despite negative C. difficile for with Flagyl. 06/19: Considering noted deformity on bilateral shoulders will obtain an x-ray just to ensure that there is no other acute event. I reviewed the chart and not has been done. Continue bicarb drip may need to decrease rate but will defer to steam frame operator. Awaiting labs from today. Anticipate discharge in a.m. we will also rule out bilateral upper extremity DVT due to the swelling. 06/20: Patient is a 80-year-old male who presented to the hospital for dialysis related facility with complaints of lethargy diminished cognition diagnosed with septic shock with diarrhea but with C. difficile negative during hospital stay was noted to be cardiac arrhythmia with tachycardia resolved with amiodarone. Was also noted to have ISAAC likely secondary to ATN showed some improvement and stabilized. Diarrhea persisted was managed with fecal management system with ID input noted. Fortunately the past few days has been having recurrent fever today noted to have a distended abdomen although nontender CT abdomen and pelvis with oral contrast was added following clearance from steam frame operator. 06/21. Patient seen and examined at bedside this morning. Ultrasound of the upper extremities showed no DVT. He has been advised to elevate right upper extremity to improve swelling. Potassium is very low today he will get potassium replacement. Plan for possible discharge tomorrow. Remained afebrile overnight 06/22. Having electrolyte abnormalities. Repleting. Will repeat levels this PM. On Antibiotics for colitis. Will dc when his electrolytes become stable. 06/23. Plan for discharge today as electrolytes have improved. COVID-19 test was positive so he would not go to [facility] as per case liner. Plan to search for facilities that will accept him 06/24. Electrolytes have normalized. Awaiting placement 06/25. Complains of pain around the buttock area. Resumed home dose oxycodone yesterday. 06/26. Needs placement. To complete antibiotics tomorrow. 06/27. Pending placement. Continue wound care. Vitals stable 06/28: Patient still awaiting placement. Noted to have swelling of the right upper extremity. Appears to be dependent. Discussed with nursing staff to elevate upper extremity. 06/29: Patient seen and examined, Continue supportive discussed with case management today will work on seeing if the facility he came from will accept him back. Still recommended outpatient urology evaluation. Upper extremity swelling continues to show some improvement with elevation. 06/30: No new complaints at this time. We will recheck his lab test to evaluate renal function. Of also discussed with case management for continued PT OT evaluation. While awaiting return to outpatient facility. 07/01: Mr. Nair remains with right upper extremity swelling especially when dependent. Encourage nurses to place a pillow to elevate and drain by gravity. We will give a dose of Lasix today. He is awaiting discharge back to the facility he came from [facility] home health is arranged. Otherwise he is medically cleared. 07/02/2020 No new complaints Awaiting placement 07/03/2020 No new complaints Awaiting placement 07/04/2020 07/04/2020 No new complaints Awaiting placement Objective - Constitutional Vitals: Vital Signs - 12hr 07/04/20 07/05/20 07/05/20 21:54 00:23 04:46 Temperature 100.2 F H 99.8 F H Pulse Rate 86 86 77 Respiratory 18 18 Rate Blood Pressure 156/57 156/57 150/48 O2 Sat by Pulse 99 98 Oximetry General appearance: Present: no acute distress, well-nourished - EENT Eyes: PERRL, EOM intact ENT: hearing intact, clear oral mucosa Ears: bilateral: normal - Neck Neck: supple, normal ROM - Respiratory Respiratory effort: normal Respiratory: bilateral: CTA - Breasts Breasts: normal - Cardiovascular Rhythm: regular Heart Sounds: Present: S1 & S2. Absent: gallop, rub Extremities: pulses intact, No edema, normal color, Full ROM Extremity abnormal: other (Sacral decubitus ulcers) - Gastrointestinal General gastrointestinal: Present: soft, non-tender, non-distended, normal bowel sounds - Genitourinary Male genitourinary: normal - Integumentary Integumentary: clear, warm, dry - Musculoskeletal Musculoskeletal: 1, strength equal bilaterally - Neurologic Neurologic: moves all extremities - Psychiatric Psychiatric: memory intact, appropriate mood/affect, intact judgment & insight - Labs CBC & Chem 7: 07/01/20 08:12 07/07/20 08:07 HEART Score - HEART Score Troponin: Troponin T 0.141 ng/mL (0.00-0.029) H* 06/18/20 10:39
[2020-07-05] MEDS: allopurinoL 100 MG TAB PO SCH (11:38)
[2020-07-05] MEDS: CHOLECALCIFEROL (VIT D3) 1000 UNIT (25 mcg) TAB PO SCH (11:39)
[2020-07-05] MEDS: FAMOTIDINE 20 MG TAB PO SCH (11:40)
[2020-07-05] MEDS: CALCIUM CARBONATE 500 MG TAB CHEW PO SCH (11:41)
[2020-07-05] MEDS: TAMSULOSIN 0.4 MG CAP PO SCH (11:47)
[2020-07-05] MEDS: oxyCODONE /ACETAMINOPHEN 5-325MG TAB PO PRN ×2 (16:54→22:41)
--- NOTE | 2020-07-05 23:43 | Progress Note ---
Assessment and Plan Diagnosis Septic Shock-resolved. Metabolic encephalopathy. Coag negative Staphylococcus 1/4 bottles. Likely contaminant Urinary tract infection. Urine culture showed no growth. Extensive colitis: C. difficile negative. Acute hypoxic respiratory failure-improved. Acute kidney injury secondary to vasomotor nephropathy. Atrial fibrillation with RVR-rate is well controlled. On amiodarone. Cardi ology recommendations appreciated. No indication for anticoagulation due to transient history of atrial fibrillation and anemia as per cardiology. Recurrent fevers. Electrolyte abnormalities-Resolved COVID-19 infection-stable. Sacral ulcer-regular turning. Zinc oxide barrier cream PRN Chronic bilateral shoulder distal care Discharge planning. Plan to discharge to skilled facility when accepted Subjective Date of service: 07/05/20 Principal diagnosis: Septic shock Interval history: 80-year-old male who is a resident of assisted living facility with vascular dementia, cerebral sclerosis, debility, diabetes mellitus who presents to the emergency department on 06/06 with complaints of lethargy and diminished cognition as per daughter he developed an episode of unresponsiveness while at breakfast at at his assisted living facility. Patient was found to have a urinary tract infection complicated by sepsis and septic shock, acute kidney injury, toxic metabolic encephalopathy as well as metabolic acidosis. Patient was hypotensive with systolic blood pressures in the 50s and was initiated on vasopressor support in the emergency department. Patient was admitted to the hospital service with consults to nephrology and [facility]. Hospital course 06/07: Patient remains on dopamine, vasopressin and Levophed. Nephrology has started the patient on sodium bicarbonate drip for metabolic acidosis. Infectious disease initiated vancomycin in addition to the cefepime and ordered a C. difficile. 06/08: Patient has gram-positive cocci bacteremia in 1/4 bottles which grew to be coag negative staph coccus and he has repeat blood cultures in progress. Urine culture has no growth to date and he is on IV vancomycin and cefepime. Yesterday we ordered a C. difficile PCR which is pending. Patient had a moment of tachycardia into the 130s and a stat EKG was obtained. Patient was given amiodarone bolus by [facility] and cardiology was consulted. Patient is hyperchloremic today however his metabolic acidosis and BUN/creatinine is slightly improved to 93/3.2 from 100/3.6 and his repeat lactic acid is 1.5. At the time my examination patient was on Levophed at 6, vasopressin 0.03 and dopamine at 6. This morning patient failed his swallow eval and ST evaluation was ordered. Of note patient's echocardiogram shows reduced 15 to 20% with borderline left ventricular hypertrophy. 06/09: This morning his speech evaluation was completed and he has been cleared for mechanical soft diet with thin liquids. Patient complained of right-sided chest pain with radiation to shoulders and a stat EKG cardiac enzymes were ordered. Patient was recultured yesterday and those have no growth to date and his vancomycin was stopped. Infectious disease team recommends removal of Torres catheter when feasible and a CT abdomen/pelvis when stable. Patient has been cleared to transfer to the floor by cardiology and CCM. 06/10/2020; patient is on IV cefepime for sepsis due to UTI day 3 out of 5. Vancomycin discontinued. Patient is complaining pleuritic chest pain. Patient was evaluated by cardiology for elevated troponin and episode of A. fib on admission. Cardiology discontinued amiodarone and put her on Lopressor. Cardiology recommend against anticoagulation because of patient's anemia. Hemoglobin this morning was 7.4 and anemia work-up is in progress. I did ordered CT abdomen and pelvis. PT OT evaluation. Patient has ISAAC and nephrology is following. Patient has rectal tube and liquid stool in the bag. I ordered stool for C. difficile. We will continue to monitor. 06/11/2020; patient is on cefepime day 06/06. CT abdomen and pelvis was done and significant for colitis, ischemic colitis is possibility given hypotension and elevated lactic acid level. I will consult GI. Patient has episode of A. fib for less than 24 hours, cardiology was consulted and recommend to be on Lopressor. No need for coagulation because of his anemia. Hemoglobin this morning is improved to 8. Anemia work-up was done, no iron deficiency anemia identified. ISAAC is improving. C. difficile was negative. 06/12/2020; continue cefepime per ID recommendation. CT abdomen and pelvis is significant for ischemic colitis likely due to septic shock, hypotension. Patient was seen by GI and recommend no further intervention at this time. Patient had episode of A. fib on admission for less than 24 hours and cardiology recommend to continue on Lopressor, no anticoagulation needed. Hemoglobin is improving. Patient came from assisted living facility. Patient need Covid test before discharge. ISAAC is improving. Creatinine this morning was 1.7. Nephrology is following. OT evaluated and recommend subacute rehab, PT evaluation is pending. 06/13: Replace K and Mag, continue to monitor renal fuction, Continue abx per ID, c.diff negative. patient still with Rectal tube and Torres but will re- evaluate for possible discontinuation. Questran started by GI. Will continue to monitor and replace electrolytes Discussed with nursing staff to change torres to condom catheter CM to try and ascertain patients functional status prior to hospitalization 06/14: Patient showing some clinical improvement Torres replaced due to urinary retention about 1000 cc of clear urine removed. Flomax started. PT OT consulted as patient is noted to have been ambulatory prior to this admission will likely need SNF placement. Diarrhea consistency is improving anticipate di scharge in 24 to 48 hours once approval is obtained. Cardiology input is noted Lopressor 25 mg p.o. twice daily possible addition of SABIHA inhibitor or ARB when okay with nephrology as regular this is a is improving. At this time no AC for A. fib management due to anemia and the transient nature of the A. fib which was less than 24 hours. 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 Unknown etiology or chronicity of these diagnoses. No current clinical evidence of acutely decompensated HF. Per [facility] [place] records, pt saw [facility] [place] [facility] in 1998 and underwent LHC which did not show any significant findings. Continue with conservative cardiac management given pt's advanced age, dementia and multiple co-morbidities. Recommend pt follow up in our office with Dr. Rosa within 2 weeks of discharge ([phone]). 06/15: Continue supportive care. Will give a unit of PRBC and anticipate discharge today or tomorrow once approval from insurance company obtained. PATIENT will need urology follow up outpatient and also cardiology outpatient. Discussed with patient and Case management Continue PT OT 06/16: Still awaiting prior approval from the insurance company for patient to be discharged. Continue supportive care thrombocytopenia noted again antiplatelets are on hold. We will continue to monitor anticipate discharge once prior authorization is received from insurance [employer]. Continue rehab therapy while in house 06/17: Severe hyperkalemia noted in the setting of renal dysfunction. Will hold discharge. Also patient with intermittent fevers culture still on resolved. Bolus of fluid given will also give some Kayexalate to correct hyperkalemia. 06/18: Still with low-grade fever. White count still normal. Potassium mild hypokalemia. Will monitor closely renal function showing some improvement. If continues to improve we will anticipate discharge tomorrow. Still with elevated troponin but improved compared to prior. No respiratory compromise noted at this time diarrhea still present. Will discuss with ID if patient should empirically be treated with p.o. vancomycin despite negative C. difficile for with Flagyl. 06/19: Considering noted deformity on bilateral shoulders will obtain an x-ray just to ensure that there is no other acute event. I reviewed the chart and not has been done. Continue bicarb drip may need to decrease rate but will defer to stock layer. Awaiting labs from today. Anticipate discharge in a.m. we will also rule out bilateral upper extremity DVT due to the swelling. 06/20: Patient is a 80-year-old male who presented to the hospital for dialysis related facility with complaints of lethargy diminished cognition diagnosed with septic shock with diarrhea but with C. difficile negative during hospital stay was noted to be cardiac arrhythmia with tachycardia resolved with amiodarone. Was also noted to have ISAAC likely secondary to ATN showed some improvement and stabilized. Diarrhea persisted was managed with fecal management system with ID input noted. Fortunately the past few days has been having recurrent fever today noted to have a distended abdomen although nontender CT abdomen and pelvis with oral contrast was added following clearance from stock layer. 06/21. Patient seen and examined at bedside this morning. Ultrasound of the upper extremities showed no DVT. He has been advised to elevate right upper extremity to improve swelling. Potassium is very low today he will get potassium replacement. Plan for possible discharge tomorrow. Remained afebrile overnight 06/22. Having electrolyte abnormalities. Repleting. Will repeat levels this PM. On Antibiotics for colitis. Will dc when his electrolytes become stable. 06/23. Plan for discharge today as electrolytes have improved. COVID-19 test was positive so he would not go to [place] as per keycase assembler. Plan to search for facilities that will accept him 06/24. Electrolytes have normalized. Awaiting placement 06/25. Complains of pain around the buttock area. Resumed home dose oxycodone yesterday. 06/26. Needs placement. To complete antibiotics tomorrow. 06/27. Pending placement. Continue wound care. Vitals stable 06/28: Patient still awaiting placement. Noted to have swelling of the right upper extremity. Appears to be dependent. Discussed with nursing staff to elevate upper extremity. 06/29: Patient seen and examined, Continue supportive discussed with case management today will work on seeing if the facility he came from will accept him back. Still recommended outpatient urology evaluation. Upper extremity swelling continues to show some improvement with elevation. 06/30: No new complaints at this time. We will recheck his lab test to evaluate renal function. Of also discussed with case management for continued PT OT evaluation. While awaiting return to outpatient facility. 07/01: Mr. Nair remains with right upper extremity swelling especially when dependent. Encourage nurses to place a pillow to elevate and drain by gravity. We will give a dose of Lasix today. He is awaiting discharge back to the facility he came from [facility] is arranged. Otherwise he is medically cleared. 07/02/2020 No new complaints Awaiting placement 07/03/2020 No new complaints Awaiting placement 07/04/2020 07/04/2020 No new complaints Awaiting placement 07/05/2020 No new complaints awaiting placement Objective - Constitutional Vitals: Vital Signs - 12hr 07/05/20 07/05/20 07/05/20 12:48 15:50 21:03 Temperature 100.0 F H 99.1 F 97.9 F Pulse Rate 82 95 H 82 Respiratory 20 18 16 Rate Blood Pressure 119/52 133/57 126/34 O2 Sat by Pulse 96 98 96 Oximetry 07/05/20 22:41 Temperature Pulse Rate Respiratory 20 Rate Blood Pressure O2 Sat by Pulse Oximetry General appearance: Present: no acute distress, well-nourished - EENT Eyes: PERRL, EOM intact ENT: hearing intact, clear oral mucosa Ears: bilateral: normal - Neck Neck: supple, normal ROM - Respiratory Respiratory effort: normal Respiratory: bilateral: CTA - Breasts Breasts: normal - Cardiovascular Rhythm: regular Heart Sounds: Present: S1 & S2. Absent: gallop, rub Extremities: pulses intact, No edema, normal color, Full ROM Extremity abnormal: other (sacral decubitus ulcer) - Gastrointestinal General gastrointestinal: Present: soft, non-tender, non-distended, normal bowel sounds - Genitourinary Male genitourinary: normal - Integumentary Integumentary: clear, warm, dry - Musculoskeletal Musculoskeletal: 1, strength equal bilaterally - Neurologic Neurologic: moves all extremities - Psychiatric Psychiatric: memory intact, appropriate mood/affect, intact judgment & insight - Labs CBC & Chem 7: 07/01/20 08:12 07/07/20 08:07 HEART Score - HEART Score Troponin: Troponin T 0.141 ng/mL (0.00-0.029) H* 06/18/20 10:39
[2020-07-06] MEDS: FUROSEMIDE 40 MG TAB PO SCH (05:43)
[2020-07-06] MEDS: DICYCLOMINE 10 MG CAP PO SCH ×3 (10:44→23:43)
[2020-07-06] MEDS: FAMOTIDINE 20 MG TAB PO SCH (10:44)
[2020-07-06] MEDS: TAMSULOSIN 0.4 MG CAP PO SCH (10:44)
[2020-07-06] MEDS: CALCIUM CARBONATE 500 MG TAB CHEW PO SCH (10:45)
[2020-07-06] MEDS: allopurinoL 100 MG TAB PO SCH (10:45)
[2020-07-06] MEDS: SODIUM BICARBONATE 650 MG TAB PO SCH ×3 (10:45→23:43)
[2020-07-06] MEDS: CHOLECALCIFEROL (VIT D3) 1000 UNIT (25 mcg) TAB PO SCH (10:45)
[2020-07-06] MEDS: CHOLESTYRAMINE (WITH SUGAR) 4 GM PACKET PO SCH ×2 (10:46→23:44)
[2020-07-06] MEDS: ZINC OXIDE 20% OINT 28.35 GM TP SCH ×2 (10:57→23:46)
[2020-07-06] MEDS: METOPROLOL TARTRATE 25 MG TAB PO SCH ×2 (12:27→23:43)
[2020-07-06] MEDS: ACETAMINOPHEN 325 MG TAB PO PRN ×2 (14:53→23:43)
--- NOTE | 2020-07-06 20:03 | Progress Note ---
Assessment and Plan Diagnosis Septic Shock-resolved. Metabolic encephalopathy. Coag negative Staphylococcus 1/4 bottles. Likely contaminant Urinary tract infection. Urine culture showed no growth. Extensive colitis: C. difficile negative. Acute hypoxic respiratory failure-improved. Acute kidney injury secondary to vasomotor nephropathy. Atrial fibrillation with RVR-rate is well controlled. On amiodarone. Cardi ology recommendations appreciated. No indication for anticoagulation due to transient history of atrial fibrillation and anemia as per cardiology. Recurrent fevers. Electrolyte abnormalities-Resolved COVID-19 infection-stable. Sacral ulcer-regular turning. Zinc oxide barrier cream PRN Chronic bilateral shoulder distal care Discharge planning. Plan to discharge to skilled facility when accepted Subjective Date of service: 07/06/20 Principal diagnosis: shock Interval history: 80-year-old male who is a resident of assisted living facility with vascular dementia, cerebral sclerosis, debility, diabetes mellitus who presents to the emergency department on 06/06 with complaints of lethargy and diminished cognition as per daughter he developed an episode of unresponsiveness while at breakfast at at his assisted living facility. Patient was found to have a urinary tract infection complicated by sepsis and septic shock, acute kidney injury, toxic metabolic encephalopathy as well as metabolic acidosis. Patient was hypotensive with systolic blood pressures in the 50s and was initiated on vasopressor support in the emergency department. Patient was admitted to the hospital service with consults to nephrology and [facility]. Hospital course 06/07: Patient remains on dopamine, vasopressin and Levophed. Nephrology has started the patient on sodium bicarbonate drip for metabolic acidosis. Infectious disease initiated vancomycin in addition to the cefepime and ordered a C. difficile. 06/08: Patient has gram-positive cocci bacteremia in 1/4 bottles which grew to be coag negative staph coccus and he has repeat blood cultures in progress. Urine culture has no growth to date and he is on IV vancomycin and cefepime. Yesterday we ordered a C. difficile PCR which is pending. Patient had a moment of tachycardia into the 130s and a stat EKG was obtained. Patient was given amiodarone bolus by [facility] and cardiology was consulted. Patient is hyperchloremic today however his metabolic acidosis and BUN/creatinine is slightly improved to 93/3.2 from 100/3.6 and his repeat lactic acid is 1.5. At the time my examination patient was on Levophed at 6, vasopressin 0.03 and dopamine at 6. This morning patient failed his swallow eval and ST evaluation was ordered. Of note patient's echocardiogram shows reduced 15 to 20% with borderline left abhi tricular hypertrophy. 06/09: This morning his speech evaluation was completed and he has been cleared for mechanical soft diet with thin liquids. Patient complained of right-sided chest pain with radiation to shoulders and a stat EKG cardiac enzymes were ordered. Patient was recultured yesterday and those have no growth to date and his vancomycin was stopped. Infectious disease team recommends removal of Torres catheter when feasible and a CT abdomen/pelvis when stable. Patient has been cleared to transfer to the floor by cardiology and CCM. 06/10/2020; patient is on IV cefepime for sepsis due to UTI day 3 out of 5. Vancomycin discontinued. Patient is complaining pleuritic chest pain. Patient was evaluated by cardiology for elevated troponin and episode of A. fib on admission. Cardiology discontinued amiodarone and put her on Lopressor. Cardiology recommend against anticoagulation because of patient's anemia. Hemoglobin this morning was 7.4 and anemia work-up is in progress. I did ordered CT abdomen and pelvis. PT OT evaluation. Patient has ISAAC and nephrology is following. Patient has rectal tube and liquid stool in the bag. I ordered stool for C. difficile. We will continue to monitor. 06/11/2020; patient is on cefepime day 5. CT abdomen and pelvis was done and s ignificant for colitis, ischemic colitis is possibility given hypotension and elevated lactic acid level. I will consult GI. Patient has episode of A. fib for less than 24 hours, cardiology was consulted and recommend to be on Lopressor. No need for coagulation because of his anemia. Hemoglobin this morning is improved to 8. Anemia work-up was done, no iron deficiency anemia identified. ISAAC is improving. C. difficile was negative. 06/12/2020; continue cefepime per ID recommendation. CT abdomen and pelvis is significant for ischemic colitis likely due to septic shock, hypotension. Ritika ent was seen by GI and recommend no further intervention at this time. Patient had episode of A. fib on admission for less than 24 hours and cardiology recommend to continue on Lopressor, no anticoagulation needed. Hemoglobin is improving. Patient came from assisted living facility. Patient need Covid test before discharge. ISAAC is improving. Creatinine this morning was 1.7. Nephrology is following. OT evaluated and recommend subacute rehab, PT evaluation is pending. 06/13: Replace K and Mag, continue to monitor renal fuction, Continue abx per ID, c.diff negative. patient still with Rectal tube and Torres but will re- evaluate for possible discontinuation. Questran started by GI. Will continue to monitor and replace electrolytes Discussed with nursing staff to change torres to condom catheter CM to try and ascertain patients functional status prior to hospitalization 06/14: Patient showing some clinical improvement Torres replaced due to urinary retention about 1000 cc of clear urine removed. Flomax started. PT OT consulted as patient is noted to have been ambulatory prior to this admission will likely need SNF placement. Diarrhea consistency is improving anticipate discharge in 24 to 48 hours once approval is obtained. Cardiology input is noted Lopressor 25 mg p.o. twice daily possible addition of SABIHA inhibitor or ARB when okay with nephrology as regular this is a is improving. At this time no AC for A. fib management due to anemia and the transient nature of the A. fib which was less than 24 hours. 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 Unknown etiology or chronicity of these diagnoses. No current clinical evidence of acutely decompensated HF. Per [facility] records, pt saw [facility] in 1998 and underwent LHC which did not show any significant findings. Continue with conservative cardiac management given pt's advanced age, dementia and multiple co-morbidities. Recommend pt follow up in our office with Dr. Rosa within 2 weeks of discharge ([phone]). 06/15: Continue supportive care. Will give a unit of PRBC and anticipate discharge today or tomorrow once approval from insurance company obtained. PATIENT will need urology follow up outpatient and also cardiology outpatient. Discussed with patient and Case management Continue PT OT 06/16: Still awaiting prior approval from the insurance company for patient to be discharged. Continue supportive care thrombocytopenia noted again antiplatelets are on hold. We will continue to monitor anticipate discharge once prior authorization is received from insurance [facility] Continue rehab therapy while in house 06/17: Severe hyperkalemia noted in the setting of renal dysfunction. Will hold discharge. Also patient with intermittent fevers culture still on resolved. Bolus of fluid given will also give some Kayexalate to correct hyperkalemia. 06/18: Still with low-grade fever. White count still normal. Potassium mild hypokalemia. Will monitor closely renal function showing some improvement. If continues to improve we will anticipate discharge tomorrow. Still with elevated troponin but improved compared to prior. No respiratory compromise noted at this time diarrhea still present. Will discuss with ID if patient should empirically be treated with p.o. vancomycin despite negative C. difficile for with Flagyl. 06/19: Considering noted deformity on bilateral shoulders will obtain an x-ray just to ensure that there is no other acute event. I reviewed the chart and not has been done. Continue bicarb drip may need to decrease rate but will defer to journeyman wireman. Awaiting labs from today. Anticipate discharge in a.m. we will also rule out bilateral upper extremity DVT due to the swelling. 06/20: Patient is a 80-year-old male who presented to the hospital for dialysis related facility with complaints of lethargy diminished cognition diagnosed with septic shock with diarrhea but with C. difficile negative during hospital stay was noted to be cardiac arrhythmia with tachycardia resolved with amiodarone. Was also noted to have ISAAC likely secondary to ATN showed some improvement and stabilized. Diarrhea persisted was managed with fecal management system with ID input noted. Fortunately the past few days has been having recurrent fever today noted to have a distended abdomen although nontender CT abdomen and pelvis with oral contrast was added following clearance from journeyman wireman. 06/21. Patient seen and examined at bedside this morning. Ultrasound of the upper extremities showed no DVT. He has been advised to elevate right upper extremity to improve swelling. Potassium is very low today he will get potassium replacement. Plan for possible discharge tomorrow. Remained afebrile overnight 06/22. Having electrolyte abnormalities. Repleting. Will repeat levels this PM. On Antibiotics for colitis. Will dc when his electrolytes become stable. 06/23. Plan for discharge today as electrolytes have improved. COVID-19 test was positive so he would not go to [facility] as per disease case manager rn. Plan to search for facilities that will accept him 06/24. Electrolytes have normalized. Awaiting placement 06/25. Complains of pain around the buttock area. Resumed home dose oxycodone yesterday. 06/26. Needs placement. To complete antibiotics tomorrow. 06/27. Pending placement. Continue wound care. Vitals stable 06/28: Patient still awaiting placement. Noted to have swelling of the right upper extremity. Appears to be dependent. Discussed with nursing staff to elevate upper extremity. 06/29: Patient seen and examined, Continue supportive discussed with case management today will work on seeing if the facility he came from will accept him back. Still recommended outpatient urology evaluation. Upper extremity swelling continues to show some improvement with elevation. 06/30: No new complaints at this time. We will recheck his lab test to evaluate renal function. Of also discussed with case management for continued PT OT evaluation. While awaiting return to outpatient facility. 07/01: Mr. Nair remains with right upper extremity swelling especially when dependent. Encourage nurses to place a pillow to elevate and drain by gravity. We will give a dose of Lasix today. He is awaiting discharge back to the facility he came from [facility] home health is arranged. Otherwise he is medically cleared. 07/02/2020 No new complaints Awaiting placement 07/03/2020 No new complaints Awaiting placement 07/04/2020 07/04/2020 No new complaints Awaiting placement 07/05/2020 No new complaints awaiting placement 07/06/2020 No new complaints Awaiting placement Objective - Constitutional Vitals: Vital Signs - 12hr 07/06/20 07/06/20 12:16 16:56 Temperature 99.8 F H 101.7 F H Pulse Rate 74 80 Respiratory 20 20 Rate Blood Pressure 120/53 112/48 O2 Sat by Pulse 98 99 Oximetry General appearance: Present: no acute distress, well-nourished - EENT Eyes: PERRL, EOM intact ENT: hearing intact, clear oral mucosa Ears: bilateral: normal - Neck Neck: supple, normal ROM - Respiratory Respiratory effort: normal Respiratory: bilateral: CTA - Breasts Breasts: normal - Cardiovascular Rhythm: regular Heart Sounds: Present: S1 & S2. Absent: gallop, rub Extremities: pulses intact, No edema, normal color, Full ROM - Gastrointestinal General gastrointestinal: Present: soft, non-tender, non-distended, normal bowel sounds - Genitourinary Male genitourinary: normal - Integumentary Integumentary: clear, warm, dry - Musculoskeletal Musculoskeletal: 1, strength equal bilaterally - Neurologic Neurologic: moves all extremities - Psychiatric Psychiatric: memory intact, appropriate mood/affect, intact judgment & insight - Labs CBC & Chem 7: 07/01/20 08:12 07/07/20 08:07 HEART Score - HEART Score Troponin: Troponin T 0.141 ng/mL (0.00-0.029) H* 06/18/20 10:39
[2020-07-06] MEDS: PRAVASTATIN 20 MG TAB PO SCH (23:44)
[2020-07-07] MEDS: FUROSEMIDE 40 MG TAB PO SCH (06:53)
[2020-07-07] MEDS: ACETAMINOPHEN 325 MG TAB PO PRN (07:00)
[2020-07-07 08:46] LABS: BUN/Creatinine Ratio 16; Blood Urea Nitrogen 14 mg/dL (9-20); Calcium 6.9 mg/dL (8.4-10.2); Hemolysis Index 1
--- NOTE | 2020-07-07 09:22 | Progress Note ---
Assessment and Plan 1. Acute kidney injury: Vasomotor ISAAC in the setting of shock. Renal US negative for hydro. Monitor renal function. Creatinine level is better. Avoid nephrotoxic agents. Meds dosage based on GFR. 2. FEN: Hypernatremia, improved. Hypokalemia, improved, monitor. Metabolic acidosis, improved. Edema, Lasix. Replete Calcium, Mg and Phos. Monitor volume status and lytes. 3. Sepsis with shock: Resolved, s/p abx. 4. UTI: S/p Abx. 5. Acute hypoxemic respiratory failure: CXR clear. Initial COVID test negative. Repeat Covid test (06/22) positive. Covid test (06/29) negative. On RA. 6. Colitis: C.diff negative. 7. Metabolic encephalopathy: Monitor. 8. H/o Dementia: Supportive care. 9. H/o HTN: Monitor BP. 10. Anemia, POA: Monitor. Subjective: Patient was seen and examined at the bedside. No new complaint. Objective: General appearance: well-developed, appears stated age, not in distress HEENT: ATNC Neck: trachea midline Respiratory: ctab Heart: regular, S1S2, no murmur Gastrointestinal: soft, normoactive bowel sounds, not tender Integumentary: sacral wound Ext: no edema noted Neurologic: alert, conversing, able to move extremities : Hair catheter Subjective Date of service: 07/07/20 Principal diagnosis: shock Objective - Vital Signs Vital signs: Vital Signs - 12hr 07/06/20 07/06/20 07/07/20 21:53 23:41 03:31 Temperature 99.8 F H 100.3 F H 99.3 F Pulse Rate 77 77 71 Respiratory 16 18 16 Rate Blood Pressure 112/55 121/54 120/45 O2 Sat by Pulse 99 100 100 Oximetry 07/07/20 07/07/20 06:52 06:57 Temperature 100.4 F H Pulse Rate 71 Respiratory 18 Rate Blood Pressure 131/52 O2 Sat by Pulse 100 Oximetry - Lab 07/01/20 08:12 07/07/20 08:07 Most recent lab results ABG pH 7.329 pH Units (7.350-7.450) L 06/06/20 11:18 ABG pCO2 27.8 mm Hg 06/06/20 11:18 ABG pO2 258.1 mm Hg (80.0-90.0) H 06/06/20 11:18 ABG HCO3 14.3 mmol/L (20.0-26.0) L 06/06/20 11:18 ABG O2 Saturation 99.4 % (95.0-99.0) H 06/06/20 11:18 Calcium 6.9 mg/dL (8.4-10.2) L 07/07/20 08:07 Phosphorus 2.40 mg/dL (2.5-4.5) L 07/07/20 08:07 Magnesium 0.90 mg/dL (1.7-2.3) L* 07/07/20 08:07 Urine Creatinine 57.0 mg/dL (0.1-20.0) H 06/06/20 21:05 Urine Sodium 85 mmol/L 06/06/20 21:05 Medications & Allergies - Medications Allergies/Adverse Reactions: Allergies No Known Allergies Allergy (Verified 06/06/20 15:21) Home Medications: Home Medications Medication Instructions Recorded Confirmed Last Taken Type Amlodipine Besylate [Norvasc] 5 mg PO QDAY 06/06/20 06/06/20 Unknown History Calcium Carb/Magnesium Hydrox 500 mg PO QDAY 06/06/20 06/06/20 Unknown History [Antacid 1000-200 mg Tab Chew] Cholecalciferol (Vitamin D3) 2,000 unit PO QDAY 06/06/20 06/06/20 Unknown History [Vitamin D3 2,000 UNIT CAP] Dicyclomine [Bentyl] 10 mg PO TID 06/06/20 06/06/20 Unknown History Insulin Lispro [Insulin Lispro 10 unit SQ TID 06/06/20 06/06/20 Unknown History Kwikpen U-100] Melatonin [Melatonin 3MG TAB] 6 mg PO QHS 06/06/20 06/06/20 Unknown History Pantoprazole [Protonix TAB] 40 mg PO QDAY 06/06/20 06/06/20 Unknown History Pioglitazone HCl [Actos] 30 mg PO QDAY 06/06/20 06/06/20 Unknown History Pravastatin Sodium [Pravastatin] 10 mg PO QHS 06/06/20 06/06/20 Unknown History allopurinoL [Zyloprim] 100 mg PO QDAY 06/06/20 06/06/20 Unknown History Famotidine [Pepcid] 20 mg PO QDAY #30 tablet 06/17/20 Unknown Rx Cholestyramine (with Sugar) 4 gm PO BID #60 powd.pack 06/23/20 Unknown Rx [Cholestyramine Packet] Loperamide [Imodium] 2 mg PO Q2H PRN #10 capsule 06/23/20 Unknown Rx Metoprolol [Lopressor TAB] 25 mg PO BID #60 tablet 06/23/20 Unknown Rx Tamsulosin [Flomax] 0.4 mg PO QDAY #30 cap 06/23/20 Unknown Rx levoFLOXacin [Levaquin] 750 mg PO QDAY #3 tablet 06/23/20 Unknown Rx metroNIDAZOLE [Flagyl] 500 mg PO Q8HR #9 tablet 06/23/20 Unknown Rx Active Medications: Generic Name Dose Route Start Last Admin Trade Name Freq PRN Reason Stop Dose Admin Acetaminophen 650 mg 06/06/20 15:00 07/07/20 07:00 Acetaminophen 325 Mg Tab PO 650 mg Q6H PRN Administration Pain, Mild (1-3) Albuterol 2.5 mg 06/06/20 15:00 Albuterol 2.5 Mg/3 Ml Nebu IH Q3HRT PRN Shortness Of Breath Allopurinol 100 mg 06/07/20 10:00 07/06/20 10:45 Allopurinol 100 Mg Tab PO 100 mg QDAY YELENA Administration Calcium Carbonate/Glycine 500 mg 06/07/20 10:00 07/06/20 10:45 Calcium Carbonate 500 Mg Tab Chew PO 500 mg QDAY YELENA Administration Cholecalciferol 2,000 unit 06/07/20 10:00 07/06/20 10:45 Cholecalciferol (Vit D3) 1000 Unit (25 Mcg) Tab PO 2,000 unit QDAY YELENA Administration Cholestyramine Resin 4 gm 06/12/20 22:00 07/06/20 23:44 Cholestyramine (With Sugar) 4 Gm Packet PO 4 gm BID YELENA Administration Dicyclomine HCl 10 mg 06/06/20 20:00 07/06/20 23:43 Dicyclomine 10 Mg Cap PO 10 mg TID YELENA Administration Famotidine 20 mg 06/13/20 10:00 07/06/20 10:44 Famotidine 20 Mg Tab PO 20 mg QDAY YELENA Administration Furosemide 40 mg 06/29/20 15:00 07/07/20 06:53 Furosemide 40 Mg Tab PO 40 mg DAILY@0600 YELENA Administration Hydrophilic Ointment 1 applic 06/24/20 11:00 06/25/20 07:47 Lip Therapy Vaseline TP 1 applic DIRECT PRN Administration Dry Lips Magnesium Sulfate 4 gm in 100 mls @ 25 mls/hr 07/07/20 09:20 Magnesium Sulfate 4gm/100ml IV 07/07/20 13:19 ONCE ONE Calcium Gluconate 2,000 mg/ 120 mls @ 660 mls/hr 07/07/20 09:21 Sodium Chloride IV 07/07/20 09:31 ONCE ONE Loperamide HCl 2 mg 06/22/20 12:30 06/27/20 10:12 Loperamide 2 Mg Cap PO 2 mg Q2H PRN Administration Diarrhea Magnesium Citrate 300 ml 06/06/20 16:20 Magnesium Citrate 300 Ml Oral Liqd PO QDAY PRN Constipation Metoprolol Tartrate 25 mg 06/09/20 22:00 07/06/20 23:43 Metoprolol Tartrate 25 Mg Tab PO 25 mg BID YELENA Administration Oxycodone/Acetaminophen 1 tab 06/24/20 12:30 07/05/20 22:41 Oxycodone /Acetaminophen 5-325mg Tab PO 1 tab Q4H PRN Administration Pain, Moderate (4-6) Pravastatin Sodium 10 mg 06/06/20 22:00 07/06/20 23:44 Pravastatin 20 Mg Tab PO 10 mg QHS YELENA Administration Sodium Bicarbonate 650 mg 06/16/20 20:00 07/06/20 23:43 Sodium Bicarbonate 650 Mg Tab PO 650 mg TID YELENA Administration Sodium Chloride 10 ml 06/06/20 15:00 07/06/20 23:46 Sodium Chloride 0.9% 10 Ml Flush Syringe IV 10 ml BID YELENA Administration Sodium Chloride 10 ml 06/06/20 15:00 Sodium Chloride 0.9% 10 Ml Flush Syringe IV PRN PRN LINE FLUSH Tamsulosin HCl 0.4 mg 06/14/20 11:00 07/06/20 10:44 Tamsulosin 0.4 Mg Cap PO 0.4 mg QDAY YELENA Administration Zinc Oxide 1 applic 06/25/20 11:00 07/06/20 23:46 Zinc Oxide 20% Oint 28.35 Gm TP 1 applic BID YELENA Administration
[2020-07-07] MEDS ORDERED: MAGNESIUM SULFATE 4 GM/100 ML BAG IV ONE (10:00)
[2020-07-07] MEDS: CHOLECALCIFEROL (VIT D3) 1000 UNIT (25 mcg) TAB PO SCH (10:18)
[2020-07-07] MEDS: CHOLESTYRAMINE (WITH SUGAR) 4 GM PACKET PO SCH ×2 (10:18→22:05)
[2020-07-07] MEDS: CALCIUM CARBONATE 500 MG TAB CHEW PO SCH (10:18)
[2020-07-07] MEDS: FAMOTIDINE 20 MG TAB PO SCH (10:18)
[2020-07-07] MEDS: allopurinoL 100 MG TAB PO SCH (10:18)
[2020-07-07] MEDS: METOPROLOL TARTRATE 25 MG TAB PO SCH ×2 (10:18→22:04)
[2020-07-07] MEDS: TAMSULOSIN 0.4 MG CAP PO SCH (10:19)
[2020-07-07] MEDS: DICYCLOMINE 10 MG CAP PO SCH ×3 (10:19→22:04)
[2020-07-07] MEDS: SODIUM BICARBONATE 650 MG TAB PO SCH ×3 (10:20→22:04)
[2020-07-07] MEDS: PHOS-NAK POWDER PACKET PO SCH ×3 (10:21→22:03)
[2020-07-07] MEDS: ZINC OXIDE 20% OINT 28.35 GM TP SCH ×2 (10:21→22:07)
[2020-07-07] MEDS ORDERED: CALCIUM GLUCONATE 2,000 MG in SODIUM CHLORIDE 0.9% 100 ML IV ONE (10:30)
[2020-07-07] MEDS: oxyCODONE /ACETAMINOPHEN 5-325MG TAB PO PRN (18:05)
[2020-07-07] MEDS: PRAVASTATIN 20 MG TAB PO SCH (22:04)
[2020-07-08] MEDS: oxyCODONE /ACETAMINOPHEN 5-325MG TAB PO PRN ×2 (04:05→11:20)
[2020-07-08] MEDS: FUROSEMIDE 40 MG TAB PO SCH (06:23)
--- NOTE | 2020-07-08 07:32 | Progress Note ---
Assessment and Plan Diagnosis Septic Shock-resolved. Metabolic encephalopathy. Coag negative Staphylococcus 1/4 bottles. Likely contaminant Urinary tract infection. Urine culture showed no growth. Extensive colitis: C. difficile negative. Acute hypoxic respiratory failure-improved. Acute kidney injury secondary to vasomotor nephropathy. Atrial fibrillation with RVR-rate is well controlled. On amiodarone. Cardi ology recommendations appreciated. No indication for anticoagulation due to transient history of atrial fibrillation and anemia as per cardiology. Recurrent fevers. Electrolyte abnormalities-Resolved COVID-19 infection-stable. Sacral ulcer-regular turning. Zinc oxide barrier cream PRN Chronic bilateral shoulder distal care Discharge planning. Plan to discharge to skilled facility when accepted Subjective Date of service: 07/07/20 Principal diagnosis: shock Interval history: 80-year-old male who is a resident of assisted living facility with vascular dementia, cerebral sclerosis, debility, diabetes mellitus who presents to the emergency department on 06/06 with complaints of lethargy and diminished cognition as per daughter he developed an episode of unresponsiveness while at breakfast at at his assisted living facility. Patient was found to have a urinary tract infection complicated by sepsis and septic shock, acute kidney injury, toxic metabolic encephalopathy as well as metabolic acidosis. Patient was hypotensive with systolic blood pressures in the 50s and was initiated on vasopressor support in the emergency department. Patient was admitted to the hospital service with consults to nephrology and [facility]. Hospital course 06/07: Patient remains on dopamine, vasopressin and Levophed. Nephrology has started the patient on sodium bicarbonate drip for metabolic acidosis. Infectious disease initiated vancomycin in addition to the cefepime and ordered a C. difficile. 06/08: Patient has gram-positive cocci bacteremia in 1/4 bottles which grew to be coag negative staph coccus and he has repeat blood cultures in progress. Urine culture has no growth to date and he is on IV vancomycin and cefepime. Yesterday we ordered a C. difficile PCR which is pending. Patient had a moment of tachycardia into the 130s and a stat EKG was obtained. Patient was given amiodarone bolus by [facility] and cardiology was consulted. Patient is hyperchloremic today however his metabolic acidosis and BUN/creatinine is slightly improved to 93/3.2 from 100/3.6 and his repeat lactic acid is 1.5. At the time my examination patient was on Levophed at 6, vasopressin 0.03 and dopamine at 6. This morning patient failed his swallow eval and ST evaluation was ordered. Of note patient's echocardiogram shows reduced 15 to 20% with borderline left abhi tricular hypertrophy. 06/09: This morning his speech evaluation was completed and he has been cleared for mechanical soft diet with thin liquids. Patient complained of right-sided chest pain with radiation to shoulders and a stat EKG cardiac enzymes were ordered. Patient was recultured yesterday and those have no growth to date and his vancomycin was stopped. Infectious disease team recommends removal of Torres catheter when feasible and a CT abdomen/pelvis when stable. Patient has been cleared to transfer to the floor by cardiology and CCM. 06/10/2020; patient is on IV cefepime for sepsis due to UTI day 3 out of 5. Vancomycin discontinued. Patient is complaining pleuritic chest pain. Patient was evaluated by cardiology for elevated troponin and episode of A. fib on admission. Cardiology discontinued amiodarone and put her on Lopressor. Cardiology recommend against anticoagulation because of patient's anemia. Hemoglobin this morning was 7.4 and anemia work-up is in progress. I did ordered CT abdomen and pelvis. PT OT evaluation. Patient has ISAAC and nephrology is following. Patient has rectal tube and liquid stool in the bag. I ordered stool for C. difficile. We will continue to monitor. 06/11/2020; patient is on cefepime day 5. CT abdomen and pelvis was done and s ignificant for colitis, ischemic colitis is possibility given hypotension and elevated lactic acid level. I will consult GI. Patient has episode of A. fib for less than 24 hours, cardiology was consulted and recommend to be on Lopressor. No need for coagulation because of his anemia. Hemoglobin this morning is improved to 8. Anemia work-up was done, no iron deficiency anemia identified. ISAAC is improving. C. difficile was negative. 06/12/2020; continue cefepime per ID recommendation. CT abdomen and pelvis is significant for ischemic colitis likely due to septic shock, hypotension. Ritika ent was seen by GI and recommend no further intervention at this time. Patient had episode of A. fib on admission for less than 24 hours and cardiology recommend to continue on Lopressor, no anticoagulation needed. Hemoglobin is improving. Patient came from assisted living facility. Patient need Covid test before discharge. ISAAC is improving. Creatinine this morning was 1.7. Nephrology is following. OT evaluated and recommend subacute rehab, PT evaluation is pending. 06/13: Replace K and Mag, continue to monitor renal fuction, Continue abx per ID, c.diff negative. patient still with Rectal tube and Torres but will re- evaluate for possible discontinuation. Questran started by GI. Will continue to monitor and replace electrolytes Discussed with nursing staff to change torres to condom catheter CM to try and ascertain patients functional status prior to hospitalization 06/14: Patient showing some clinical improvement Torres replaced due to urinary retention about 1000 cc of clear urine removed. Flomax started. PT OT consulted as patient is noted to have been ambulatory prior to this admission will likely need SNF placement. Diarrhea consistency is improving anticipate discharge in 24 to 48 hours once approval is obtained. Cardiology input is noted Lopressor 25 mg p.o. twice daily possible addition of SABIHA inhibitor or ARB when okay with nephrology as regular this is a is improving. At this time no AC for A. fib management due to anemia and the transient nature of the A. fib which was less than 24 hours. 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 Unknown etiology or chronicity of these diagnoses. No current clinical evidence of acutely decompensated HF. Per [facility] records, pt saw [facility] in 1998 and underwent LHC which did not show any significant findings. Continue with conservative cardiac management given pt's advanced age, dementia and multiple co-morbidities. Recommend pt follow up in our office with Dr. Rosa within 2 weeks of discharge ([phone]). 06/15: Continue supportive care. Will give a unit of PRBC and anticipate discharge today or tomorrow once approval from insurance company obtained. PATIENT will need urology follow up outpatient and also cardiology outpatient. Discussed with patient and Case management Continue PT OT 06/16: Still awaiting prior approval from the insurance company for patient to be discharged. Continue supportive care thrombocytopenia noted again antiplatelets are on hold. We will continue to monitor anticipate discharge once prior authorization is received from insurance [employer]. Continue rehab therapy while in house 06/17: Severe hyperkalemia noted in the setting of renal dysfunction. Will hold discharge. Also patient with intermittent fevers culture still on resolved. Bolus of fluid given will also give some Kayexalate to correct hyperkalemia. 06/18: Still with low-grade fever. White count still normal. Potassium mild hypokalemia. Will monitor closely renal function showing some improvement. If continues to improve we will anticipate discharge tomorrow. Still with elevated troponin but improved compared to prior. No respiratory compromise noted at this time diarrhea still present. Will discuss with ID if patient should empirically be treated with p.o. vancomycin despite negative C. difficile for with Flagyl. 06/19: Considering noted deformity on bilateral shoulders will obtain an x-ray just to ensure that there is no other acute event. I reviewed the chart and not has been done. Continue bicarb drip may need to decrease rate but will defer to real estate legal assistant. Awaiting labs from today. Anticipate discharge in a.m. we will also rule out bilateral upper extremity DVT due to the swelling. 06/20: Patient is a 80-year-old male who presented to the hospital for dialysis related facility with complaints of lethargy diminished cognition diagnosed with septic shock with diarrhea but with C. difficile negative during hospital stay was noted to be cardiac arrhythmia with tachycardia resolved with amiodarone. Was also noted to have ISAAC likely secondary to ATN showed some improvement and stabilized. Diarrhea persisted was managed with fecal management system with ID input noted. Fortunately the past few days has been having recurrent fever today noted to have a distended abdomen although nontender CT abdomen and pelvis with oral contrast was added following clearance from real estate legal assistant. 06/21. Patient seen and examined at bedside this morning. Ultrasound of the upper extremities showed no DVT. He has been advised to elevate right upper extremity to improve swelling. Potassium is very low today he will get potassium replacement. Plan for possible discharge tomorrow. Remained afebrile overnight 06/22. Having electrolyte abnormalities. Repleting. Will repeat levels this PM. On Antibiotics for colitis. Will dc when his electrolytes become stable. 06/23. Plan for discharge today as electrolytes have improved. COVID-19 test was positive so he would not go to [facility] as per shoe caser. Plan to search for facilities that will accept him 06/24. Electrolytes have normalized. Awaiting placement 06/25. Complains of pain around the buttock area. Resumed home dose oxycodone yesterday. 06/26. Needs placement. To complete antibiotics tomorrow. 06/27. Pending placement. Continue wound care. Vitals stable 06/28: Patient still awaiting placement. Noted to have swelling of the right upper extremity. Appears to be dependent. Discussed with nursing staff to elevate upper extremity. 06/29: Patient seen and examined, Continue supportive discussed with case management today will work on seeing if the facility he came from will accept him back. Still recommended outpatient urology evaluation. Upper extremity swelling continues to show some improvement with elevation. 06/30: No new complaints at this time. We will recheck his lab test to evaluate renal function. Of also discussed with case management for continued PT OT evaluation. While awaiting return to outpatient facility. 07/01: Mr. Nair remains with right upper extremity swelling especially when dependent. Encourage nurses to place a pillow to elevate and drain by gravity. We will give a dose of Lasix today. He is awaiting discharge back to the facility he came from wants home health is arranged. Otherwise he is medically cleared. 07/02/2020 No new complaints Awaiting placement 07/03/2020 No new complaints Awaiting placement 07/04/2020 07/04/2020 No new complaints Awaiting placement 07/05/2020 No new complaints awaiting placement 07/06/2020 No new complaints Awaiting placement 07/07/2020 No new complaints Objective - Constitutional Vitals: Vital Signs - 12hr 07/07/20 07/07/20 07/08/20 20:54 22:04 04:05 Temperature 97.8 F Pulse Rate 90 88 Respiratory 18 17 Rate Blood Pressure 109/49 114/60 Blood Pressure [Left] Blood Pressure [Right] O2 Sat by Pulse 99 Oximetry 07/08/20 06:08 Temperature 99 F Pulse Rate 81 Respiratory 17 Rate Blood Pressure Blood Pressure 91/51 [Left] Blood Pressure 92/50 [Right] O2 Sat by Pulse 96 Oximetry General appearance: Present: no acute distress, well-nourished - EENT Eyes: PERRL, EOM intact ENT: hearing intact, clear oral mucosa Ears: bilateral: normal - Neck Neck: supple, normal ROM - Respiratory Respiratory effort: normal Respiratory: bilateral: CTA - Breasts Breasts: normal - Cardiovascular Rhythm: regular Heart Sounds: Present: S1 & S2. Absent: gallop, rub Extremities: pulses intact, No edema, normal color, Full ROM - Gastrointestinal General gastrointestinal: Present: soft, non-tender, non-distended, normal bowel sounds - Genitourinary Male genitourinary: normal - Integumentary Integumentary: clear, warm, dry - Musculoskeletal Musculoskeletal: 1, strength equal bilaterally - Neurologic Neurologic: moves all extremities - Psychiatric Psychiatric: memory intact, appropriate mood/affect, intact judgment & insight - Labs CBC & Chem 7: 07/01/20 08:12 07/07/20 08:07 Labs: Abnormal lab results 07/07/20 Range/Units 08:07 Calcium 6.9 L (8.4-10.2) mg/dL Phosphorus 2.40 L (2.5-4.5) mg/dL Magnesium 0.90 L* (1.7-2.3) mg/dL HEART Score - HEART Score Troponin: Troponin T 0.141 ng/mL (0.00-0.029) H* 06/18/20 10:39
[2020-07-08] MEDS: CALCIUM CARBONATE 500 MG TAB CHEW PO SCH (09:23)
[2020-07-08] MEDS: CHOLECALCIFEROL (VIT D3) 1000 UNIT (25 mcg) TAB PO SCH (09:23)
[2020-07-08] MEDS: SODIUM BICARBONATE 650 MG TAB PO SCH ×2 (09:23→16:19)
[2020-07-08] MEDS: TAMSULOSIN 0.4 MG CAP PO SCH (09:23)
[2020-07-08] MEDS: allopurinoL 100 MG TAB PO SCH (09:23)
[2020-07-08] MEDS: FAMOTIDINE 20 MG TAB PO SCH (09:23)
[2020-07-08] MEDS: CHOLESTYRAMINE (WITH SUGAR) 4 GM PACKET PO SCH (09:23)
[2020-07-08] MEDS: DICYCLOMINE 10 MG CAP PO SCH ×2 (09:25→16:19)
[2020-07-08] MEDS: ZINC OXIDE 20% OINT 28.35 GM TP SCH (11:21)
--- NOTE | 2020-07-08 12:14 | Progress Note ---
Assessment and Plan 1. Acute kidney injury: Vasomotor ISAAC in the setting of shock. Renal US negative for hydro. Monitor renal function. Creatinine level is better. Avoid nephrotoxic agents. Meds dosage based on GFR. 2. FEN: Hypernatremia, improved. Hypokalemia, improved, monitor. Metabolic acidosis, improved. Edema, Lasix. Monitor volume status and lytes. No labs from today. 3. Sepsis with shock: Resolved, s/p abx. 4. UTI: S/p Abx. 5. Acute hypoxemic respiratory failure: CXR clear. Initial COVID test negative. Repeat Covid test (06/22) positive. Covid test (06/29) negative. On RA. 6. Colitis: C.diff negative. 7. Metabolic encephalopathy: Monitor. 8. H/o Dementia: Supportive care. 9. H/o HTN: Monitor BP. 10. Anemia, POA: Monitor. Subjective: Patient was seen and examined at the bedside. No new complaint. Objective: General appearance: well-developed, appears stated age, not in distress HEENT: ATNC Neck: trachea midline Respiratory: ctab Heart: regular, S1S2, no murmur Gastrointestinal: soft, normoactive bowel sounds, not tender Integumentary: sacral wound Ext: no edema noted Neurologic: alert, conversing, able to move extremities : Hair catheter Subjective Date of service: 07/08/20 Principal diagnosis: shock Objective - Vital Signs Vital signs: Vital Signs - 12hr 07/08/20 07/08/20 07/08/20 04:05 06:08 11:12 Temperature 99 F 98.1 F Pulse Rate 81 79 Respiratory 17 17 Rate Blood Pressure Blood Pressure 91/51 [Left] Blood Pressure 92/50 121/52 [Right] O2 Sat by Pulse 96 99 Oximetry 07/08/20 12:05 Temperature 98.2 F Pulse Rate 76 Respiratory 19 Rate Blood Pressure 126/45 Blood Pressure [Left] Blood Pressure [Right] O2 Sat by Pulse 99 Oximetry - Lab 07/01/20 08:12 07/07/20 08:07 Most recent lab results ABG pH 7.329 pH Units (7.350-7.450) L 06/06/20 11:18 ABG pCO2 27.8 mm Hg 06/06/20 11:18 ABG pO2 258.1 mm Hg (80.0-90.0) H 06/06/20 11:18 ABG HCO3 14.3 mmol/L (20.0-26.0) L 06/06/20 11:18 ABG O2 Saturation 99.4 % (95.0-99.0) H 06/06/20 11:18 Calcium 6.9 mg/dL (8.4-10.2) L 07/07/20 08:07 Phosphorus 2.40 mg/dL (2.5-4.5) L 07/07/20 08:07 Magnesium 0.90 mg/dL (1.7-2.3) L* 07/07/20 08:07 Urine Creatinine 57.0 mg/dL (0.1-20.0) H 06/06/20 21:05 Urine Sodium 85 mmol/L 06/06/20 21:05 Medications & Allergies - Medications Allergies/Adverse Reactions: Allergies No Known Allergies Allergy (Verified 06/06/20 15:21) Home Medications: Home Medications Medication Instructions Recorded Confirmed Last Taken Type Amlodipine Besylate [Norvasc] 5 mg PO QDAY 06/06/20 06/06/20 Unknown History Calcium Carb/Magnesium Hydrox 500 mg PO QDAY 06/06/20 06/06/20 Unknown History [Antacid 1000-200 mg Tab Chew] Cholecalciferol (Vitamin D3) 2,000 unit PO QDAY 06/06/20 06/06/20 Unknown History [Vitamin D3 2,000 UNIT CAP] Dicyclomine [Bentyl] 10 mg PO TID 06/06/20 06/06/20 Unknown History Insulin Lispro [Insulin Lispro 10 unit SQ TID 06/06/20 06/06/20 Unknown History Kwikpen U-100] Melatonin [Melatonin 3MG TAB] 6 mg PO QHS 06/06/20 06/06/20 Unknown History Pantoprazole [Protonix TAB] 40 mg PO QDAY 06/06/20 06/06/20 Unknown History Pioglitazone HCl [Actos] 30 mg PO QDAY 06/06/20 06/06/20 Unknown History Pravastatin Sodium [Pravastatin] 10 mg PO QHS 06/06/20 06/06/20 Unknown History allopurinoL [Zyloprim] 100 mg PO QDAY 06/06/20 06/06/20 Unknown History Famotidine [Pepcid] 20 mg PO QDAY #30 tablet 06/17/20 Unknown Rx Cholestyramine (with Sugar) 4 gm PO BID #60 powd.pack 06/23/20 Unknown Rx [Cholestyramine Packet] Loperamide [Imodium] 2 mg PO Q2H PRN #10 capsule 06/23/20 Unknown Rx Metoprolol [Lopressor TAB] 25 mg PO BID #60 tablet 06/23/20 Unknown Rx Tamsulosin [Flomax] 0.4 mg PO QDAY #30 cap 06/23/20 Unknown Rx levoFLOXacin [Levaquin] 750 mg PO QDAY #3 tablet 06/23/20 Unknown Rx metroNIDAZOLE [Flagyl] 500 mg PO Q8HR #9 tablet 06/23/20 Unknown Rx Active Medications: Generic Name Dose Route Start Last Admin Trade Name Freq PRN Reason Stop Dose Admin Acetaminophen 650 mg 06/06/20 15:00 07/07/20 07:00 Acetaminophen 325 Mg Tab PO 650 mg Q6H PRN Administration Pain, Mild (1-3) Albuterol 2.5 mg 06/06/20 15:00 Albuterol 2.5 Mg/3 Ml Nebu IH Q3HRT PRN Shortness Of Breath Allopurinol 100 mg 06/07/20 10:00 07/08/20 09:23 Allopurinol 100 Mg Tab PO 100 mg QDAY YELENA Administration Calcium Carbonate/Glycine 500 mg 06/07/20 10:00 07/08/20 09:23 Calcium Carbonate 500 Mg Tab Chew PO 500 mg QDAY YELENA Administration Cholecalciferol 2,000 unit 06/07/20 10:00 07/08/20 09:23 Cholecalciferol (Vit D3) 1000 Unit (25 Mcg) Tab PO 2,000 unit QDAY YELENA Administration Cholestyramine Resin 4 gm 06/12/20 22:00 07/08/20 09:23 Cholestyramine (With Sugar) 4 Gm Packet PO 4 gm BID YELENA Administration Dicyclomine HCl 10 mg 06/06/20 20:00 07/08/20 09:25 Dicyclomine 10 Mg Cap PO 10 mg TID YELENA Administration Famotidine 20 mg 06/13/20 10:00 07/08/20 09:23 Famotidine 20 Mg Tab PO 20 mg QDAY YELENA Administration Furosemide 40 mg 06/29/20 15:00 07/08/20 06:23 Furosemide 40 Mg Tab PO Not Given DAILY@0600 YELENA Hydrophilic Ointment 1 applic 06/24/20 11:00 06/25/20 07:47 Lip Therapy Vaseline TP 1 applic DIRECT PRN Administration Dry Lips Loperamide HCl 2 mg 06/22/20 12:30 06/27/20 10:12 Loperamide 2 Mg Cap PO 2 mg Q2H PRN Administration Diarrhea Magnesium Citrate 300 ml 06/06/20 16:20 Magnesium Citrate 300 Ml Oral Liqd PO QDAY PRN Constipation Metoprolol Tartrate 25 mg 06/09/20 22:00 07/07/20 22:04 Metoprolol Tartrate 25 Mg Tab PO 25 mg BID YELENA Administration Oxycodone/Acetaminophen 1 tab 06/24/20 12:30 07/08/20 11:20 Oxycodone /Acetaminophen 5-325mg Tab PO 1 tab Q4H PRN Administration Pain, Moderate (4-6) Pravastatin Sodium 10 mg 06/06/20 22:00 07/07/20 22:04 Pravastatin 20 Mg Tab PO 10 mg QHS YELENA Administration Sodium Bicarbonate 650 mg 06/16/20 20:00 07/08/20 09:23 Sodium Bicarbonate 650 Mg Tab PO 650 mg TID YELENA Administration Sodium Chloride 10 ml 06/06/20 15:00 07/08/20 09:24 Sodium Chloride 0.9% 10 Ml Flush Syringe IV 10 ml BID YELENA Administration Sodium Chloride 10 ml 06/06/20 15:00 Sodium Chloride 0.9% 10 Ml Flush Syringe IV PRN PRN LINE FLUSH Tamsulosin HCl 0.4 mg 06/14/20 11:00 07/08/20 09:23 Tamsulosin 0.4 Mg Cap PO 0.4 mg QDAY YELENA Administration Zinc Oxide 1 applic 06/25/20 11:00 07/08/20 11:21 Zinc Oxide 20% Oint 28.35 Gm TP Not Given BID YELENA
[2020-07-08] MEDS ORDERED: MAGNESIUM OXIDE 400 MG TAB PO SCH (14:00)
--- NOTE | 2020-07-08 14:48 | Discharge Summary ---
Providers - Providers Date of Admission: 06/06/20 14:32 Date of discharge: 07/08/20 Attending physician: ANTONIO CASE 06/06/20 14:27 Consult to Physician [CONS] Stat Comment: Consulting Provider: GREG CARTWRIGHT Physician Instructions: Reason For Exam: Hyperkalemia, renal insufficiency 06/06/20 14:32 Consult to Physician [CONS] Routine Comment: Consulting Provider: ANA CRISTINA TEJEDA Physician Instructions: Reason For Exam: septic shock 06/07/20 09:36 Consult to Physician [CONS] Routine Comment: Consulting Provider: ANTHONY HERNANDEZ Physician Instructions: Reason For Exam: septic shock 06/07/20 09:39 Consult to Physician [CONS] Routine Comment: Consulting Provider: ANTHONY HERNANDEZ Physician Instructions: Reason For Exam: septic shock 06/08/20 08:47 Speech Therapy Evaluation and Treat [CONS] Urgent Reason For Exam: failed bedside swallow 06/08/20 12:38 Consult to Physician [CONS] Routine Comment: ousmane alfonso/david Consulting Provider: KENTRELL ROSA Physician Instructions: Reason For Exam: arrhythmia 06/09/20 11:14 Physical Therapy Evaluation and Treat [CONS] Routine Comment: Reason For Exam: evaluate and treat 06/09/20 21:06 Occupational Therapy Evaluate and Treat [CONS] Routine Comment: Reason For Exam: evaluate and treat 06/11/20 08:12 Consult to Physician [CONS] Routine Comment: Consulting Provider: LISA BARBOUR Physician Instructions: Reason For Exam: Colitis, likely ischemic 06/13/20 17:09 Physical Therapy Evaluation and Treat [CONS] Routine Comment: Eval for SNF Reason For Exam: Debility 06/15/20 09:00 Consult to Wound/ET Nurse [CONS] Routine Reason For Exam: woundre- eval for sacral area 06/20/20 19:15 Consult to Wound/ET Nurse [CONS] Routine Reason For Exam: Wound Re-evaluation 07/01/20 15:20 Occupational Therapy Evaluate and Treat [CONS] Stat Comment: Reason For Exam: Eval and treat Physical Therapy Evaluation and Treat [CONS] Stat Comment: Reason For Exam: eval and treat Primary care physician: SECURITY CONTROL ASSESSOR Hospitalization Condition: Stable Hospital course: Assessment and Plan 80-year-old male who is a resident of assisted living facility with vascular dementia, cerebral sclerosis, debility, diabetes mellitus who presents to the emergency department on 06/06 with complaints of lethargy and diminished cognition as per daughter he developed an episode of unresponsiveness while at breakfast at at his assisted living facility. Patient was found to have a urinary tract infection complicated by sepsis and septic shock, acute kidney injury, toxic metabolic encephalopathy as well as metabolic acidosis. Patient was hypotensive with systolic blood pressures in the 50s and was initiated on vasopressor support in the emergency department. Patient was admitted to the hospital service with consults to nephrology and [facility]. Hospital course 06/07: Patient remains on dopamine, vasopressin and Levophed. Nephrology has started the patient on sodium bicarbonate drip for metabolic acidosis. Infectious disease initiated vancomycin in addition to the cefepime and ordered a C. difficile. 06/08: Patient has gram-positive cocci bacteremia in 03/07 bottles which grew to be coag negative staph coccus and he has repeat blood cultures in progress. Urine culture has no growth to date and he is on IV vancomycin and cefepime. Yesterday we ordered a C. difficile PCR which is pending. Patient had a moment of tachycardia into the 130s and a stat EKG was obtained. Patient was given amiodarone bolus by [facility] and cardiology was consulted. Patient is hyperchloremic today however his metabolic acidosis and BUN/creatinine is slightly improved to 93/3.2 from 100/3.6 and his repeat lactic acid is 1.5. At the time my examination patient was on Levophed at 6, vasopressin 0.03 and dopamine at 6. This morning patient failed his swallow eval and ST evaluation was ordered. Of note patient's echocardiogram shows reduced 15 to 20% with borderline left ventricular hypertrophy. 06/09: This morning his speech evaluation was completed and he has been cleared for mechanical soft diet with thin liquids. Patient complained of right-sided chest pain with radiation to shoulders and a stat EKG cardiac enzymes were ordered. Patient was recultured yesterday and those have no growth to date and his vancomycin was stopped. Infectious disease team recommends removal of Torres catheter when feasible and a CT abdomen/pelvis when stable. Patient has been cleared to transfer to the floor by cardiology and [facility]. 06/10/2020; patient is on IV cefepime for sepsis due to UTI day 3 out of 5. Vancomycin discontinued. Patient is complaining pleuritic chest pain. Patient was evaluated by cardiology for elevated troponin and episode of A. fib on admission. Cardiology discontinued amiodarone and put her on Lopressor. Cardiology recommend against anticoagulation because of patient's anemia. Hemoglobin this morning was 7.4 and anemia work-up is in progress. I did ordered CT abdomen and pelvis. PT OT evaluation. Patient has ISAAC and nephrology is following. Patient has rectal tube and liquid stool in the bag. I ordered stool for C. difficile. We will continue to monitor. 06/11/2020; patient is on cefepime day 4/5. CT abdomen and pelvis was done and significant for colitis, ischemic colitis is possibility given hypotension and elevated lactic acid level. I will consult GI. Patient has episode of A. fib for less than 24 hours, cardiology was consulted and recommend to be on Lopressor. No need for coagulation because of his anemia. Hemoglobin this morning is improved to 8. Anemia work-up was done, no iron deficiency anemia identified. ISAAC is improving. C. difficile was negative. 06/12/2020; continue cefepime per ID recommendation. CT abdomen and pelvis is significant for ischemic colitis likely due to septic shock, hypotension. Patient was seen by GI and recommend no further intervention at this time. Patient had episode of A. fib on admission for less than 24 hours and cardiology recommend to continue on Lopressor, no anticoagulation needed. Hemoglobin is improving. Patient came from assisted living facility. Patient need Covid test before discharge. ISAAC is improving. Creatinine this morning was 1.7. Nephrology is following. OT evaluated and recommend subacute rehab, PT evaluation is pending. 06/13: Replace K and Mag, continue to monitor renal fuction, Continue abx per ID, c.diff negative. patient still with Rectal tube and Torres but will re- evaluate for possible discontinuation. Questran started by GI. Will continue to monitor and replace electrolytes Discussed with nursing staff to change torres to condom catheter CM to try and ascertain patients functional status prior to hospitalization 06/14: Patient showing some clinical improvement Torres replaced due to urinary retention about 1000 cc of clear urine removed. Flomax started. PT OT consulted as patient is noted to have been ambulatory prior to this admission will likely need SNF placement. Diarrhea consistency is improving anticipate discharge in 24 to 48 hours once approval is obtained. Cardiology input is noted Lopressor 25 mg p.o. twice daily possible addition of SABIHA inhibitor or ARB when okay with nephrology as regular this is a is improving. At this time no A C for A. fib management due to anemia and the transient nature of the A. fib which was less than 24 hours. 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 Unknown etiology or chronicity of these diagnoses. No current clinical evidence of acutely decompensated HF. Per [facility] records, pt saw [facility]ology in 1998 and underwent LHC which did not show any significant findings. Continue with conservative cardiac management given pt's advanced age, dementia and multiple co-morbidities. Recommend pt follow up in our office with Dr. Rosa within 2 weeks of discharge ([phone]). 06/15: Continue supportive care. Will give a unit of PRBC and anticipate discharge today or tomorrow once approval from insurance company obtained. PATIENT will need urology follow up outpatient and also cardiology outpatient. Discussed with patient and Case management Continue PT OT 06/16: Still awaiting prior approval from the insurance company for patient to be discharged. Continue supportive care thrombocytopenia noted again antiplatelets are on hold. We will continue to monitor anticipate discharge once prior authorization is received from insurance [id number]. Continue rehab therapy while in house 06/17: Severe hyperkalemia noted in the setting of renal dysfunction. Will hold discharge. Also patient with intermittent fevers culture still on resolved. Bolus of fluid given will also give some Kayexalate to correct hyperkalemia. 06/18: Still with low-grade fever. White count still normal. Potassium mild hypokalemia. Will monitor closely renal function showing some improvement. If continues to improve we will anticipate discharge tomorrow. Still with elevated troponin but improved compared to prior. No respiratory compromise noted at this time diarrhea still present. Will discuss with ID if patient should empirically be treated with p.o. vancomycin despite negative C. difficile for with Flagyl. 06/19: Considering noted deformity on bilateral shoulders will obtain an x-ray just to ensure that there is no other acute event. I reviewed the chart and not has been done. Continue bicarb drip may need to decrease rate but will defer to rvda master certified rv technician. Awaiting labs from today. Anticipate discharge in a.m. we will also rule out bilateral upper extremity DVT due to the swelling. 06/20: Patient is a 80-year-old male who presented to the hospital for dialysis related facility with complaints of lethargy diminished cognition diagnosed with septic shock with diarrhea but with C. difficile negative during hospital stay was noted to be cardiac arrhythmia with tachycardia resolved with amiodarone. Was also noted to have ISAAC likely secondary to ATN showed some improvement and stabilized. Diarrhea persisted was managed with fecal management system with ID input noted. Fortunately the past few days has been having recurrent fever today noted to have a distended abdomen although nontender CT abdomen and pelvis with oral contrast was added following clearance from rvda master certified rv technician. 06/21. Patient seen and examined at bedside this morning. Ultrasound of the upper extremities showed no DVT. He has been advised to elevate right upper extremity to improve swelling. Potassium is very low today he will get potassium replacement. Plan for possible discharge tomorrow. Remained afebrile overnight 06/22. Having electrolyte abnormalities. Repleting. Will repeat levels this PM. On Antibiotics for colitis. Will dc when his electrolytes become stable. 06/23. Plan for discharge today as electrolytes have improved. COVID-19 test was positive so he would not go to [facility] as per correctional case manager. Plan to search for facilities that will accept him 06/24. Electrolytes have normalized. Awaiting placement 06/25. Complains of pain around the buttock area. Resumed home dose oxycodone yesterday. 06/26. Needs placement. To complete antibiotics tomorrow. 06/27. Pending placement. Continue wound care. Vitals stable 06/28: Patient still awaiting placement. Noted to have swelling of the right upper extremity. Appears to be dependent. Discussed with nursing staff to elevate upper extremity. 06/29: Patient seen and examined, Continue supportive discussed with case management today will work on seeing if the facility he came from will accept him back. Still recommended outpatient urology evaluation. Upper extremity swelling continues to show some improvement with elevation. 06/30: No new complaints at this time. We will recheck his lab test to evaluate renal function. Of also discussed with case management for continued PT OT evaluation. While awaiting return to outpatient facility. 07/01: Mr. Nair remains with right upper extremity swelling especially when dependent. Encourage nurses to place a pillow to elevate and drain by gravity. We will give a dose of Lasix today. He is awaiting discharge back to the facility he came from wants home health is arranged. Otherwise he is medically cleared. 07/02/2020 No new complaints Awaiting placement 07/03/2020 No new complaints Awaiting placement 07/04/2020 No new complaints Awaiting placement 07/05/2020 No new complaints Awaiting placement 07/06/2020 No new complaints Awaiting placement 07/07/2020 No new complaints Awaiting placement 07/08/2020 Magnesium very low-supplemented Calcium low-supplemented Diagnosis Septic Shock-resolved. Metabolic encephalopathy--resolved Coag negative Staphylococcus / bottles. Likely contaminant Urinary tract infection. Urine culture showed no growth. Extensive colitis: C. difficile negative. Acute hypoxic respiratory failure-improved. Neurology alveolar nerve Acute kidney injury secondary to vasomotor nephropathy. Atrial fibrillation with RVR-rate is well controlled. On amiodarone. Cardiology recommendations appreciated. No indication for anticoagulation due to transient history of atrial fibrillation and anemia as per cardiology. Recurrent fevers. Electrolyte abnormalities-Resolved COVID-19 infection-stable. Sacral ulcer-regular turning. Zinc oxide barrier cream PRN Wound care Chronic bilateral shoulder distal care Hypomagnesemia-supplemented, recheck magnesium level Hypocalcemia--supplemented Patient to be discharged on Caltrate twice daily for 4 days. [facility] program Discharge planning. Patient being discharged to custodial facility today To to observation congestive Disposition: [place]-03 SNF W [facility] CERT Final Discharge Diagnosis (Prints w/discharge instructions): Septic shock. Acute kidney injury. Acute tubular necrosis. Sacral decubitus ulcer. Hypomagnesemia. Hypocalcemia Time spent for discharge: 35 minutes - Discharge Diagnoses (1) Septic shock Status: Resolved (2) Metabolic acidosis Status: Resolved (3) Acute kidney injury (ISAAC) with acute tubular necrosis (ATN) Status: Resolved (4) Hyperkalemia Status: Resolved (5) Cardiomyopathy Status: Chronic (6) Pneumonia due to COVID-19 virus Status: Resolved (7) Sacral decubitus ulcer Status: Chronic Qualifiers: Pressure injury stage: stage 3 Qualified Code(s): L89.153 - Pressure ulcer of sacral region, stage 3 Comment: Wound care (8) Hypomagnesemia Status: Acute Core Measure Documentation - Palliative Care Palliative Care/ Comfort Measures: Not Applicable - Core Measures Any of the following diagnoses?: none Exam - Constitutional Vitals: Temp Pulse Resp BP Pulse Ox 98.2 F 76 19 126/45 99 07/08/20 12:05 07/08/20 12:05 07/08/20 12:05 07/08/20 12:05 07/08/20 12:05 General appearance: Present: no acute distress, well-nourished - EENT Eyes: Present: PERRL ENT: hearing intact, clear oral mucosa - Neck Neck: Present: supple, normal ROM - Respiratory Respiratory effort: normal Respiratory: bilateral: CTA - Cardiovascular Heart rate: 78 Rhythm: regular Heart Sounds: Present: S1 & S2. Absent: rub, click - Extremities Extremities: no ischemia, pulses intact, pulses symmetrical, No edema Peripheral Pulses: within normal limits - Abdominal General gastrointestinal: Present: soft, non-tender, non-distended, normal bowel sounds Male genitourinary: Present: normal - Integumentary Integumentary: Present: clear, warm, dry - Psychiatric Psychiatric: appropriate mood/affect, intact judgment & insight - Neurologic Neurologic: CNII-XII intact, moves all extremities - Allied Health Allied health notes reviewed: nursing ([facility] internal medicine.Third set), case management ( abscess) Plan Activity: fall precautions Weight Bearing Status: Non-Weight Bearing Diet: low salt Plan of Treatment: follow with urology for removal of torres Follow up with: ALEKSANDRA PAIZ MD [Staff Physician] - 7 Days PRIMARY CARE, [Primary Care Provider] - 3-5 Days Prescriptions: Cholestyramine (with Sugar) [Cholestyramine Packet] 4 gm PO BID #60 powd.pack metroNIDAZOLE [Flagyl] 500 mg PO Q8HR #9 tablet Tamsulosin [Flomax] 0.4 mg PO QDAY #30 cap Loperamide [Imodium] 2 mg PO Q2H PRN #10 capsule PRN Reason: Diarrhea levoFLOXacin [Levaquin] 750 mg PO QDAY #3 tablet Metoprolol [Lopressor TAB] 25 mg PO BID #60 tablet Famotidine [Pepcid] 20 mg PO QDAY #30 tablet
[2020-07-08] MEDS ORDERED: CALCIUM GLUCONATE 2,000 MG in SODIUM CHLORIDE 0.9% 100 ML IV ONE (16:00)
[2020-07-08] MEDS ORDERED: MAGNESIUM SULFATE 2 GM/50 ML BAG IV SCH (16:00)
[2020-07-08] MEDS: METOPROLOL TARTRATE 25 MG TAB PO SCH (16:20)
[2020-07-08 20:49] VITALS: BP 124/57
== END 2020-07-08 20:30 | DRG 871 ==
LOC: ED 09:40 → CC1 14:32 → 4A 06-09 22:04 → 3A 06-23 23:16
PROVIDERS: ADMIT Internal Medicine; ATTEND Internal Medicine
PROC: 4A033R1 Measurement of Arterial Saturation, Peripheral, Percutaneous Approach (ICD-10-PCS; 2020-06-06)
PROC: 06HY33Z Insertion of Infusion Device into Lower Vein, Percutaneous Approach (ICD-10-PCS; 2020-06-06)
PROC: 30233N1 Transfusion of Nonautologous Red Blood Cells into Peripheral Vein, Percutaneous Approach (ICD-10-PCS; principal; 2020-06-15)
DX: A41.89 Other specified sepsis (principal); L89.153 Pressure ulcer of sacral region, stage 3; N17.0 Acute kidney failure with tubular necrosis; R65.21 Severe sepsis with septic shock; G92 Toxic encephalopathy; J96.01 Acute respiratory failure with hypoxia; U07.1 COVID-19; J12.82 Pneumonia due to coronavirus disease 2019; N39.0 Urinary tract infection, site not specified; I42.9 Cardiomyopathy, unspecified; E11.9 Type 2 diabetes mellitus without complications; F01.50 Vascular dementia, unspecified severity, without behavioral disturbance, psychotic disturbance, mood disturbance, and anxiety; K52.89 Other specified noninfective gastroenteritis and colitis; I48.91 Unspecified atrial fibrillation; E83.42 Hypomagnesemia; E83.51 Hypocalcemia; I10 Essential (primary) hypertension; E87.5 Hyperkalemia; I44.7 Left bundle-branch block, unspecified; D64.9 Anemia, unspecified; Z82.49 Family history of ischemic heart disease and other diseases of the circulatory system; Z83.3 Family history of diabetes mellitus; Z79.899 Other long term (current) drug therapy; Z86.73 Personal history of transient ischemic attack (TIA), and cerebral infarction without residual deficits
CPT/HCPCS: 36415; 70450; 70496; 70498; 70551; 71045; 74176; 76770; 80048; 80053; 80061; 80202; 80307; 80320; 81001; 82140; 82550; 82553; 82570; 82607; 82728; 82747; 82803; 82805; 82962; 83550; 83735; 83970; 84100; 84132; 84300; 84439; 84443; 84484; 85007; 85025; 85027; 85610; 85730; 86850; 86900; 86901; 86920; 87040; 87086; 87493; 93005; 93306; 93970; 94640; G0378; A6250; A9270-GY; G0480; J0282; J0610; J0692; J1170; J1265; J1644; J1815; J1940; J1956; J2543; J3370; J3475; J7030; J7040; J7060; J7070; J7120; P9016; Q9967; U0003